=== PATIENT | female | born 1945 | race Caucasian/White ===

== ENCOUNTER 2018-01-25 23:26 | Inpatient (IN) ==
[2018-01-25] MEDS ORDERED: Aspirin 81 MG TAB.CHEW PO ONE (23:51)
[2018-01-25] MEDS ORDERED: Ondansetron 4 MG/2 ML VIAL IVP ONE (23:57)
[2018-01-25] MEDS ORDERED: Nitroglycerin 0.4 MG TAB.SUBL SL ONE (23:57)
--- NOTE | 2018-01-25 23:57 | Emergency Department Note ---
Disposition Clinical Impression: Diaphoresis, Acute electrocardiogram changes, Atelectasis of both lungs Nausea and vomiting Qualifiers: Vomiting type: unspecified Vomiting Intractability: non-intractable Qualified Code(s): R11.2 - Nausea with vomiting, unspecified Disposition: Admitted As Inpatient Condition: Undetermined Time of Disposition: 03:12 General Adult HPI - General Chief complaint: ED Nausea/Vomiting/Diarrhea Stated complaint: NV after Shoulder Surgery Time Seen by Provider: 01/25/18 23:30 Source: patient Mode of arrival: ambulatory Limitations: no limitations Nursing Notes Reviewed: Yes Vital Signs Reviewed: Yes - History of Present Illness HPI Narrative: 73-year-old female with history of CABG 3 vessels in 2010, with UT 3 stents placed in 2007, arrives to the emergency department status post right shoulder scoping. This was performed today by Dr. Hurt. The patient states that this pain started at roughly 945 this evening. The patient woke up her family member and they were brought into the emergency department. The patient is experiencing some nausea and vomiting as well. The patient states this feels identical to her previous UT back in 2007. The patient denies any shortness of breath. She denies any abdominal discomfort. She is very diaphoretic on examination. Pain Scale: 7 - Related Data Home Medications Medication Instructions Recorded Confirmed Aspirin 81 mg PO DAILY 07/31/16 01/26/18 Insulin NPH Hum/Reg Insulin Hm 12 unit SQ QPM 07/31/16 01/26/18 [Novolin 70-30 100 Unit/ml Vial] Insulin NPH Hum/Reg Insulin Hm 22 unit SQ QAM 07/31/16 01/26/18 [Novolin 70-30 100 Unit/ml Vial] Metoprolol [Lopressor] 12.5 mg PO BID 07/31/16 01/26/18 Ranitidine HCl [Heartburn Relief] 150 mg PO BID 07/31/16 01/26/18 Ergocalciferol (VITAMIN D2) 50,000 unit PO Q14D 08/01/16 01/26/18 [Vitamin D2 (50,000 UNIT)] Furosemide [Lasix] 20 mg PO DAILY 01/25/18 01/26/18 Nitroglycerin [Nitrostat] 0.4 mg SL Q5M PRN 01/25/18 01/26/18 Previous Rx's Medication Instructions Recorded Rosuvastatin [Crestor] 40 mg PO HS #30 tablet 08/02/16 Allergies Allergy/AdvReac Type Severity Reaction Status Date / Time codeine Allergy Rash Verified 06/27/15 13:40 losartan [From Cozaar] Allergy See Verified 08/01/16 11:26 Comments lisinopril AdvReac Cough Verified 08/01/16 11:26 All systems ED: reviewed and negative except as stated. Constitutional: Denies: fever, chills, weakness ENT ED: Denies: congestion Cardiovascular: Denies: chest pain, dyspnea on exertion, edema Respiratory: Denies: cough, dyspnea Gastrointestinal: Reports: nausea, vomiting. Denies: abdominal pain Genitourinary: Denies: urgency, dysuria Musculoskeletal: Reports: back pain, arthralgia. Denies: neck pain, myalgia Integumentary: Denies: rash Neurological: Denies: headache, weakness, numbness, paresthesias Past Medical History - Past Medical History Attestation: Yes The following information was validated with the patient. Source: patient, old records reviewed Medical history: Reports: coronary artery disease, diabetes, GERD, hyperlipidemia, hypertension, myocardial infarction, renal disease Surgical history: Reports: coronary bypass (CABG), orthopedic, other (Shoulder scope) Psychiatric history: Reports: no psych history - Social History Smoking Status: Unknown if ever smoked Smokeless Tobacco Status: No Alcohol use: Reports: none Drug use: Reports: none Physical Exam - General Limitations: no limitations General appearance: alert, other (Diaphoretic) - Head Head exam: atraumatic, normocephalic, normal inspection - Eye Eye exam: Present: normal appearance, PERRL, EOMI - ENT ENT exam: normal exam, normal oropharynx, mucous membranes moist - Neck Neck exam: Present: normal inspection, full ROM, trachea midline - Chest Chest inspection: Present: normal inspection, symmetric chest wall rise - Respiratory Respiratory exam: Present: normal lung sounds bilaterally - Cardiovascular Cardiovascular exam: Present: normal rhythm, tachycardia, normal heart sounds - Abdominal Exam Abdominal exam: Present: soft, Non-Tender. Absent: tenderness, distention, guarding, rebound, rigidity - Extremities Exam Extremities exam: Present: tenderness (Right shoulder due to recent shoulder surgery, right upper extremity is not sleeping with dressing in place.), normal capillary refill. Absent: pedal edema - Neurological Exam Neurological exam: Present: alert, oriented X3 - Skin Skin exam: Present: warm, dry, intact, normal color Course - Consultations Consultation #1: We spoke with Dr. Shen, who agreed with the plan of care for the patient that she will be admitted. No further recommendations at this time. Time: 01:25 Vital Signs Temperature 97.5 F L 01/25/18 23:31 Pulse Rate 101 01/25/18 23:31 Respiratory Rate 20 01/25/18 23:31 Blood Pressure 180/79 01/25/18 23:31 O2 Sat by Pulse Oximetry 98 01/25/18 23:31 Temperature 98.4 F 01/26/18 04:19 Pulse Rate 117 01/26/18 04:19 Respiratory Rate 18 01/26/18 04:19 Blood Pressure 146/74 01/26/18 04:19 O2 Sat by Pulse Oximetry 146 01/26/18 04:19 Oxygen Delivery Oxygen Delivery Nasal Cannula Medical Decision Making - MDM Narrative Medical decision making narrative: Workup in the emergency department demonstrates some flipped T waves and ST depression noted on EKG that are new. The patient appeared hypovolemic due to vomiting. In addition the patient had relief of her symptoms with nitroglycerin. The patient had anesthesia performed earlier today and this is possibly the etiology of her nausea and vomiting. There may be a component of heart strain associated with being hypovolemic as well. The patient was administered IV fluids and is resting comfortably in the room at this time. Given the patient's EKG changes as well as diaphoresis and nausea and vomiting, we will admit the patient to the hospital for further workup and care including trending of troponins. The patient was made aware and agrees to plan. No further questions or concerns noted at this time. Family member also agrees to plan of care. Chest x-ray also demonstrates bilateral haziness concern for possible pneumonia versus effusions. The patient was administered 1 g of Rocephin here in the emergency department. Accepted by Drr. Conde after repeat BMP and and repeat EKG. - Lab Data Lab results reviewed: Yes I reviewed the patient's lab results. Result diagrams: 01/26/18 00:13 01/26/18 02:05 Lab Results 01/26/18 01/26/18 01/26/18 Range/Units 00:13 00:13 00:13 WBC 9.0 (4.3-11.1) K/mcL RBC 2.94 L (3.82-4.97) M/mcL Hgb 8.7 L (11.5-15.4) g/dL Hct 28.9 L (35.3-44.9) % MCV 98.3 (83.0-100.0) fL MCH 29.6 (28.0-33.3) pg MCHC 30.1 L (31.6-35.5) g/dL RDW 13.8 (11.5-14.5) % Plt Count 171 (140-400) K/mcL MPV 11.8 (9.4-12.4) fL Immature Gran % 0.3 (0-4) % Seg Neutrophils % 94.8 % Lymphocytes % 3.4 % Monocytes % 1.3 % Eosinophils % 0.0 % Basophils % 0.2 % Neutrophils # 8.5 (1.6-8.9) K/mcL Lymphocytes # 0.3 L (0.6-4.6) K/mcL Monocytes # 0.1 (0.0-1.3) K/mcL Eosinophils # 0.0 (0.0-0.6) K/mcL Basophils # 0.0 (0.0-0.2) K/mcL PT 11.5 (9.4-12.1) Seconds INR 1.1 APTT 28.3 (26.0-36.0) Seconds Sodium 140 (136-145) mEq/L Potassium 5.4 H (3.5-5.1) mEq/L Chloride 113 H (98-107) mEq/L Carbon Dioxide 15 L (23-29) mEq/L BUN 32 H (8-23) mg/dL Creatinine 1.47 H (0.60-1.20) mg/dL Est GFR ( Amer) 42 L (> 60) Est GFR (Non-Af Amer) 35 L (> 60) BUN/Creatinine Ratio 22 (6-26) Glucose 398 H (70-105) mg/dL Calculated Osmolality 314 H (280-300) Calcium 8.6 (8.6-10.3) mg/dL Troponin I 0.03 (< 0.04) ng/mL 01/26/18 Range/Units 02:05 WBC (4.3-11.1) K/mcL RBC (3.82-4.97) M/mcL Hgb (11.5-15.4) g/dL Hct (35.3-44.9) % MCV (83.0-100.0) fL MCH (28.0-33.3) pg MCHC (31.6-35.5) g/dL RDW (11.5-14.5) % Plt Count (140-400) K/mcL MPV (9.4-12.4) fL Immature Gran % (0-4) % Seg Neutrophils % % Lymphocytes % % Monocytes % % Eosinophils % % Basophils % % Neutrophils # (1.6-8.9) K/mcL Lymphocytes # (0.6-4.6) K/mcL Monocytes # (0.0-1.3) K/mcL Eosinophils # (0.0-0.6) K/mcL Basophils # (0.0-0.2) K/mcL PT (9.4-12.1) Seconds INR APTT (26.0-36.0) Seconds Sodium 140 (136-145) mEq/L Potassium 4.9 (3.5-5.1) mEq/L Chloride 116 H (98-107) mEq/L Carbon Dioxide 14 L (23-29) mEq/L BUN 32 H (8-23) mg/dL Creatinine 1.32 H (0.60-1.20) mg/dL Est GFR ( Amer) 48 L (> 60) Est GFR (Non-Af Amer) 39 L (> 60) BUN/Creatinine Ratio 24 (6-26) Glucose 385 H (70-105) mg/dL Calculated Osmolality 313 H (280-300) Calcium 7.4 L (8.6-10.3) mg/dL Troponin I (< 0.04) ng/mL - Radiology Data Radiology results reviewed: Yes I reviewed the patient's radiology results. Chest X-Ray 01/25/18 23:51 IMPRESSION: 1. Hazy bilateral pulmonary opacities may reflect pneumonia or partial atelectasis in combination with right pleural effusion. 2. Subcutaneous emphysema of the right shoulder and right upper extremity. Etiology is uncertain. Finding could reflect dissection of occult pneumothorax or sequela of recent trauma. Infectious process may also be considered in the appropriate clinical scenario 3. No radiographic evidence of pneumothorax. D/ / Young Song, MD / Beka Gaffney MD Interpreting Provider: Beka Gaffney MD - EKG Data EKG #1 EKG attestation: Yes I reviewed and interpreted this EKG. EKG results narrative: Heart rate 10 8 bpm. Normal sinus rhythm with tachycardia. The patient has ST depression noted in leads 2 and V5. Flipped T waves noted in 1, aVL, V5 and V6. This all appears new from EKG performed on 01/16/2018. No ST elevation noted. Critical Care Time Critical Care Time: Yes Total Critical Care Time: 50 Attestation: Critical care performed: Time is exclusive of separately billable procedures. Time includes: direct patient care, patient reassessment, coordination of patient care, interpretation of data (laboratory data, radiology data, and respiratory data), review of patient's medical records, medical consultation and documentation of patient care. Procedures included in critical care time: Procedures excluded from critical care time:
[2018-01-25] MEDS ORDERED: 0.9 % Sodium Chloride 1,000 ML ONE (23:59)
[2018-01-26] MEDS: Nitroglycerin 0.4 MG TAB.SUBL SL PRN ×2 (00:05→00:43)
[2018-01-26 00:22] LABS: Basophils % 0.2 %; Hematocrit 28.9 % (35.3-44.9); Hemoglobin 8.7 g/dL (11.5-15.4); Immature Granulocytes % 0.3 % (0-4); Lymphocytes # 0.3 K/mcL (0.6-4.6); Lymphocytes % 3.4 %; Mean Corpuscular HGB Conc 30.1 g/dL (31.6-35.5); Mean Corpuscular Hemoglobin 29.6 pg (28.0-33.3); Mean Corpuscular Volume 98.3 fL (83.0-100.0); Mean Platelet Volume 11.8 fL (9.4-12.4); Monocytes # 0.1 K/mcL (0.0-1.3); Monocytes % 1.3 %; Neutrophils # 8.5 K/mcL (1.6-8.9); Platelet Count 171 K/mcL (140-400); Red Blood Count 2.94 M/mcL (3.82-4.97); Red Cell Distribution Width 13.8 % (11.5-14.5); Segmented Neutrophils % 94.8 %
[2018-01-26 00:28] LABS: INR 1.1; Prothrombin Time 11.5 Seconds (9.4-12.1)
[2018-01-26 00:31] LABS: Activated Partial Thrombo Time 28.3 Seconds (26.0-36.0)
[2018-01-26] MEDS ORDERED: cefTRIAXone 1,000 MG in Water for inj. (sterile) 20 ML 10 ML IVP ONE (00:39)
[2018-01-26 00:43] LABS: Calcium 8.6 mg/dL (8.6-10.3); Potassium 5.4 mEq/L (3.5-5.1); Troponin I 0.03 ng/mL (< 0.04)
[2018-01-26] MEDS ORDERED: Nitroglycerin 25 MG/250 ML INFUS..BTL IVC ONE (00:59)
[2018-01-26] MEDS ORDERED: Ondansetron 4 MG/2 ML VIAL IVP ONE (01:46)
[2018-01-26] MEDS ORDERED: Ondansetron 4 MG/2 ML VIAL ONE (01:47)
[2018-01-26] MEDS: Nitroglycerin 25 MG/250 ML INFUS..BTL IVC SCH ×2 (01:51→05:15)
[2018-01-26 02:34] LABS: Calcium 7.4 mg/dL (8.6-10.3); Potassium 4.9 mEq/L (3.5-5.1)
[2018-01-26] MEDS ORDERED: 0.9 % Sodium Chloride 1,000 ML IVC ONE (02:37)
--- NOTE | 2018-01-26 04:40 | Emergency Department Note ---
Disposition Clinical Impression: Diaphoresis, Acute electrocardiogram changes, Atelectasis of both lungs Nausea and vomiting Qualifiers: Vomiting type: unspecified Vomiting Intractability: non-intractable Qualified Code(s): R11.2 - Nausea with vomiting, unspecified Disposition: Admitted As Inpatient Condition: Undetermined General Adult HPI - General Chief complaint: ED Nausea/Vomiting/Diarrhea Stated complaint: NV after Shoulder Surgery Time Seen by Provider: 01/25/18 23:30 Source: patient Mode of arrival: ambulatory Limitations: no limitations - History of Present Illness Pain Scale: 7 - Related Data Home Medications Medication Instructions Recorded Confirmed Aspirin 81 mg PO DAILY 07/31/16 01/26/18 Insulin NPH Hum/Reg Insulin Hm 12 unit SQ QPM 07/31/16 01/26/18 [Novolin 70-30 100 Unit/ml Vial] Insulin NPH Hum/Reg Insulin Hm 22 unit SQ QAM 07/31/16 01/26/18 [Novolin 70-30 100 Unit/ml Vial] Metoprolol [Lopressor] 12.5 mg PO BID 07/31/16 01/26/18 Ranitidine HCl [Heartburn Relief] 150 mg PO BID 07/31/16 01/26/18 Ergocalciferol (VITAMIN D2) 50,000 unit PO Q14D 08/01/16 01/26/18 [Vitamin D2 (50,000 UNIT)] Furosemide [Lasix] 20 mg PO DAILY 01/25/18 01/26/18 Nitroglycerin [Nitrostat] 0.4 mg SL Q5M PRN 01/25/18 01/26/18 Previous Rx's Medication Instructions Recorded Rosuvastatin [Crestor] 40 mg PO HS #30 tablet 08/02/16 Allergies Allergy/AdvReac Type Severity Reaction Status Date / Time codeine Allergy Rash Verified 06/27/15 13:40 losartan [From Cozaar] Allergy See Verified 08/01/16 11:26 Comments lisinopril AdvReac Cough Verified 08/01/16 11:26 Constitutional: Denies: fever, chills, weakness ENT ED: Denies: congestion Cardiovascular: Denies: chest pain, dyspnea on exertion, edema Respiratory: Denies: cough, dyspnea Gastrointestinal: Reports: nausea, vomiting. Denies: abdominal pain Genitourinary: Denies: urgency, dysuria Musculoskeletal: Reports: back pain, arthralgia. Denies: neck pain, myalgia Integumentary: Denies: rash Neurological: Denies: headache, weakness, numbness, paresthesias Past Medical History - Past Medical History Medical history: Reports: coronary artery disease, diabetes, GERD, hyperlipidemia, hypertension, myocardial infarction, renal disease Surgical history: Reports: coronary bypass (CABG), orthopedic, other (Shoulder scope) Psychiatric history: Reports: no psych history - Social History Smoking Status: Unknown if ever smoked Smokeless Tobacco Status: No Alcohol use: Reports: none Drug use: Reports: none Physical Exam - General Limitations: no limitations General appearance: alert, other (Diaphoretic) Course Vital Signs Temperature 97.5 F L 01/25/18 23:31 Pulse Rate 101 01/25/18 23:31 Respiratory Rate 20 01/25/18 23:31 Blood Pressure 180/79 01/25/18 23:31 O2 Sat by Pulse Oximetry 98 01/25/18 23:31 Temperature 97.5 F L 01/25/18 23:31 Pulse Rate 100 01/26/18 03:15 Respiratory Rate 17 01/26/18 03:15 Blood Pressure 162/66 01/26/18 03:15 O2 Sat by Pulse Oximetry 99 01/26/18 03:15 Oxygen Delivery Oxygen Delivery Nasal Cannula Medical Decision Making - Lab Data Result diagrams: 01/26/18 00:13 01/26/18 02:05 Lab Results 01/26/18 01/26/18 01/26/18 Range/Units 00:13 00:13 00:13 WBC 9.0 (4.3-11.1) K/mcL RBC 2.94 L (3.82-4.97) M/mcL Hgb 8.7 L (11.5-15.4) g/dL Hct 28.9 L (35.3-44.9) % MCV 98.3 (83.0-100.0) fL MCH 29.6 (28.0-33.3) pg MCHC 30.1 L (31.6-35.5) g/dL RDW 13.8 (11.5-14.5) % Plt Count 171 (140-400) K/mcL MPV 11.8 (9.4-12.4) fL Immature Gran % 0.3 (0-4) % Seg Neutrophils % 94.8 % Lymphocytes % 3.4 % Monocytes % 1.3 % Eosinophils % 0.0 % Basophils % 0.2 % Neutrophils # 8.5 (1.6-8.9) K/mcL Lymphocytes # 0.3 L (0.6-4.6) K/mcL Monocytes # 0.1 (0.0-1.3) K/mcL Eosinophils # 0.0 (0.0-0.6) K/mcL Basophils # 0.0 (0.0-0.2) K/mcL PT 11.5 (9.4-12.1) Seconds INR 1.1 APTT 28.3 (26.0-36.0) Seconds Sodium 140 (136-145) mEq/L Potassium 5.4 H (3.5-5.1) mEq/L Chloride 113 H (98-107) mEq/L Carbon Dioxide 15 L (23-29) mEq/L BUN 32 H (8-23) mg/dL Creatinine 1.47 H (0.60-1.20) mg/dL Est GFR ( Amer) 42 L (> 60) Est GFR (Non-Af Amer) 35 L (> 60) BUN/Creatinine Ratio 22 (6-26) Glucose 398 H (70-105) mg/dL Calculated Osmolality 314 H (280-300) Calcium 8.6 (8.6-10.3) mg/dL Troponin I 0.03 (< 0.04) ng/mL 01/26/18 Range/Units 02:05 WBC (4.3-11.1) K/mcL RBC (3.82-4.97) M/mcL Hgb (11.5-15.4) g/dL Hct (35.3-44.9) % MCV (83.0-100.0) fL MCH (28.0-33.3) pg MCHC (31.6-35.5) g/dL RDW (11.5-14.5) % Plt Count (140-400) K/mcL MPV (9.4-12.4) fL Immature Gran % (0-4) % Seg Neutrophils % % Lymphocytes % % Monocytes % % Eosinophils % % Basophils % % Neutrophils # (1.6-8.9) K/mcL Lymphocytes # (0.6-4.6) K/mcL Monocytes # (0.0-1.3) K/mcL Eosinophils # (0.0-0.6) K/mcL Basophils # (0.0-0.2) K/mcL PT (9.4-12.1) Seconds INR APTT (26.0-36.0) Seconds Sodium 140 (136-145) mEq/L Potassium 4.9 (3.5-5.1) mEq/L Chloride 116 H (98-107) mEq/L Carbon Dioxide 14 L (23-29) mEq/L BUN 32 H (8-23) mg/dL Creatinine 1.32 H (0.60-1.20) mg/dL Est GFR ( Amer) 48 L (> 60) Est GFR (Non-Af Amer) 39 L (> 60) BUN/Creatinine Ratio 24 (6-26) Glucose 385 H (70-105) mg/dL Calculated Osmolality 313 H (280-300) Calcium 7.4 L (8.6-10.3) mg/dL Troponin I (< 0.04) ng/mL Attestation Statement - Attestation Attestation: I, Madi Paige MD, personally evaluated this patient and discussed their management with the resident physician. I reviewed the resident's note and agree with the documented findings, medical decision making, and plan of care. 73-year-old female who just had right shoulder surgery today and states that about the time she got home from her surgery this afternoon around 5 PM she started having pain in her left upper back around the left scapular region. Pain radiates to the left shoulder and left arm. No anterior chest pain. Patient states that she has a history of an MA in the past with similar symptoms. She has had 3 stents and three-vessel CABG. She did have some shortness of breath and diaphoresis with the back pain. She continues to have the back pain. She also developed nausea and vomiting about the time she arrived at the emergency department. On examination patient is a well-developed well-nourished elderly female in no acute distress. She is alert and oriented 3. There is no cyanosis or diaphoresis at time of my exam. Chest is nontender to palpation. Breath sounds are clear and equal bilaterally. Heart regular rate and rhythm. Abdomen soft and nontender with normal bowel sounds. Labs reviewed. Troponin normal. EKG does show some new anterior lateral T- wave inversions and ST segment depressions. Chest x-ray shows: Hazy bilateral pulmonary opacities may reflect pneumonia or partial atelectasis in combination with right pleural effusion. Patient's discomfort was significantly improved with 2 sublingual nitroglycerin short time later started returning. She was placed on a nitroglycerin infusion. She had taken aspirin at home prior to coming to the emergency department. Dr. Dent discussed the case with the copyholder carton filling machine operator, Dr. Shen. The hospitalist, Dr. Conde, was consulted and accepted admission of the patient.
[2018-01-26] MEDS ORDERED: Naloxone 0.4 MG/ML INJ IVP PRN (05:29)
[2018-01-26] MEDS ORDERED: Ondansetron 4 MG/2 ML VIAL IVP PRN (05:29)
[2018-01-26] MEDS ORDERED: *HR* Metoprolol 5 MG/5 ML VIAL IVP PRN (05:34)
[2018-01-26] MEDS ORDERED: D5% in Water 1,000 ML IVC PRN (05:36)
[2018-01-26] MEDS ORDERED: *HR* Dextrose 50 % in Water (Syg) 50 ML SYRINGE IVP PRN (05:36)
[2018-01-26] MEDS ORDERED: Dextrose Gel 15 GM/37.5 ML TUBE PO PRN ×2 (05:36)
--- NOTE | 2018-01-26 05:46 | Internal Med History&Physical ---
Date of Encounter: 01/26/18 Time of Encounter: 04:00 Assessment and Plan (1) Chest pain Current visit: Yes Status: Acute Patient complaining of chest pain or back pain, radiated to left arm. With shortness of breath, nausea, and diaphoresis. EKG shows lateral lead ischemia. The chest pain respond to NTG. Need to rule out ACS - Continuous cardiac monitoring - Track 3 sets of troponin - Continue aspirin, beta shannon, and statin, try to control tachycardia with intermittent metoprolol IV as needed. - Continue NTG drip - Pain medication if NTG drip cannot control the pain. - Cardiology consult informed by ER doctor Qualifiers: Chest pain type: precordial pain Qualified Code(s): R07.2 - Precordial pain (2) Coronary artery disease Current visit: No Status: Chronic Management as above Qualifiers: Coronary Disease-Associated Artery/Lesion type: bypass graft [place] vs. transplanted heart: [place] heart Associated angina: without angina Qualified Code(s): I25.810 - Atherosclerosis of coronary artery bypass graft(s) without angina pectoris (3) Essential hypertension Current visit: No Status: Chronic Continue home medications. Also patient is on NTG drip now, need closely monitor BP per protocol. (4) Type 2 diabetes mellitus with diabetic nephropathy, with long-term current use of insulin Current visit: No Status: Chronic Place patient on basal and sliding scale insulin (5) Ventilator associated pneumonia Current visit: Yes Status: Acute Chest x-ray shows pneumonia. Patient has rhonchorous bilaterally with shortness of breath. Patient has productive cough after general anesthesia surgery. We will treat patient as ventilator associated pneumonia with cefepime 2000 mg IV every 12 hours (renal dose). (6) DVT prophylaxis Current visit: Yes Status: Acute EPCD, hold anticoagulation in case patient needs catheterization by cardiology (7) Metabolic acidosis Current visit: Yes Status: Acute Hyperchloride metabolic acidosis with bicarbonate at 14. Probably due to recent surgery/PONV - We will give patient lactated Ringer solution IV - Follow up BMP Internal Medicine - H&P: HPI Chief complaint: Chest pain Admitted From: Home Plans for Post Hospital Care: Home History of present illness: Ms. Andres is a 73 year old female with history of CAD S/P stent and CABG, diabetes, hypertension, CKD, freezing shoulder S/P arthroscope today, presented to ER for chest/back pain. Patient had shoulder surgery this morning. This afternoon, patient started to have chest pain and back pain during sleep, which wake her up. The pain is mainly located on the left sided back, radiated to left arm, as per patient, pain is quite similar with the pain she had previously when she has [place]. Pain is constant, dull, respond to nitroglycerin sublingual. Patient has shortness of breath, nausea and vomited once, diaphoresis. Patient has productive cough, which started after surgery. Patient denies fever. In emergency room, EKG shows new T-wave inversion on lead 1 aVL and V5/V6. Patient was started NTD drip, her pain get down to around 4-5/10. Patient was admitted for further management. Past Med Surg Social Fam HX - Past Medical History Medical history: coronary artery disease, diabetes, GERD, hyperlipidemia, hypertension, myocardial infarction, renal disease Psychiatric history: no psych history - Past Surgical History Surgical History: coronary bypass (CABG), orthopedic, other (Shoulder scope) - Social History Smoking Status: Unknown if ever smoked Smokeless Tobacco Status: No Alcohol use: none Drug use: none - Family History Father Living Status: Age at : 89 Cause of : [place] Hx Family Cardiac Disorders: Yes (CAD, [place]) Mother Living Status: Age at : 67 Cause of : DM, [place] Hx Family Cardiac Disorders: Yes (CAD) Hx Family Endocrine Disorder: Yes (DMII, kidney problems) Internal Medicine - H&P: Meds Aspirin 81 mg PO DAILY 07/31/16 [History] Insulin NPH Hum/Reg Insulin Hm [Novolin 70-30 100 Unit/ml Vial] 12 unit SQ QPM 07/31/16 [History] Insulin NPH Hum/Reg Insulin Hm [Novolin 70-30 100 Unit/ml Vial] 22 unit SQ QAM 07/31/16 [History] Metoprolol [Lopressor] 12.5 mg PO BID 07/31/16 [History] Ranitidine HCl [Heartburn Relief] 150 mg PO BID 07/31/16 [History] Ergocalciferol (VITAMIN D2) [Vitamin D2 (50,000 UNIT)] 50,000 unit PO Q14D 08/01 [History] Rosuvastatin [Crestor] 40 mg PO HS #30 tablet 08/02/16 [Rx] Furosemide [Lasix] 20 mg PO DAILY 01/25/18 [History] Nitroglycerin [Nitrostat] 0.4 mg SL Q5M PRN 01/25/18 [History] 3 Allergy/AdvReac Type Severity Reaction Status Date / Time codeine Allergy Rash Verified 06/27/15 13:40 losartan [From Cozaar] Allergy See Verified 08/01/16 11:26 Comments lisinopril AdvReac Cough Verified 08/01/16 11:26 All Systems PM: A 10-system review of systems was performed and is negative for pertinent findings except as documented above in the HPI. - Constitutional Vitals: Temp Pulse Resp BP Pulse Ox 98.4 F 117 18 146/74 146 01/26/18 04:19 01/26/18 04:19 01/26/18 04:19 01/26/18 04:19 01/26/18 04:19 General appearance: Present: mild distress, A&O X 3, answers questions appropriately - Head Head exam: Present: atraumatic, normocephalic - Eye Eye exam: Present: PERRL, conjuntiva pink, sclera anicteric Pupils: Present: PERRL - Neck Neck exam general surgery: Present: supple, trachea midline. Absent: lymphadenopathy - Respiratory Respiratory exam: Present: CTAB, rhonchi (Defused rhonchi bilaterally). Absent : accessory muscle use, rales, wheezes - Cardiovascular Cardiovascular exam: Present: RRR, +S1, +S2, tachycardia. Absent: diastolic murmur, gallop, rubs, systolic murmur - GI/Abdominal GI/Abdominal exam: Present: normal bowel sounds, soft, no peritoneal signs. Absent: distended, tenderness - Extremities Exam Extremities exam: Present: warm, radial pulses palpable and symmetrical. Absent : calf tenderness, cyanotic, pedal edema Additional comments: Right shoulder S/P surgery, in sling fixation. - Neurological Exam Neurological exam: Present: CN II-XII intact, oriented X3, no focal deficits. Absent: pronater drift, facial droop, speech deficit - Skin Skin exam: Present: dry, intact Internal Med - H&P Results - Labs CBC & Chem 7: 01/26/18 00:13 01/26/18 02:05 - EKG Data -: EKG Interpreted by Myself EKG shows normal: sinus rhythm Rate: tachycardia
[2018-01-26] MEDS: Ringers Solution, Lactated 1,000 ML IVC SCH ×2 (05:51→18:42)
[2018-01-26] MEDS: Cefepime HCl 2,000 MG in Water for inj. (sterile) 20 ML 20 ML IVP SCH ×2 (05:52→18:33)
[2018-01-26] MEDS ORDERED: Insulin LISPRO 300 UNITS/3 ML VIAL SQ SCH (06:00)
[2018-01-26] MEDS: Ondansetron 4 MG/2 ML VIAL IVP PRN (06:09)
--- NOTE | 2018-01-26 06:48 | Event Note ---
Date of Encounter: 01/26/18 Time of Encounter: 06:35 Pt's second troponin 0.71. Together with her typical EKG and chest pain, consider NSTEMI. Hesitate to start heparin drip because pt just had right shoulder surgery yesterday and concern for surgical bleeding. Tried to inform cardio but not get responds yet. Signed to dayshift hospitalist to cont follow/ monitor.
[2018-01-26] MEDS: Furosemide 20 MG TABLET PO SCH (08:13)
[2018-01-26] MEDS: Famotidine 20 MG TABLET PO SCH ×2 (08:13→22:08)
[2018-01-26] MEDS: Aspirin 81 MG TAB.CHEW PO SCH (08:13)
[2018-01-26] MEDS ORDERED: Insulin DETEMIR 100 UNIT/ML X5UNITS SQ SCH (09:00)
--- NOTE | 2018-01-26 10:47 | Event Note ---
Date of Encounter: 01/26/18 Time of Encounter: 10:37 S: Patient doing better since admission. She states that chest pain is greatly improved on nitro. She denies SOB, fever, or chills. Troponin trended up to 0.71 this AM. I spoke with broom maker today, who is going to see patient. She has no new complaints. O: Vitals - Temp 97.4 degrees F., HR 97, RR 18, BP 132/60, O2 sat 97% on 3L NC Gen - Awake, alert, well-nourished, no acute distress HEENT - NCAT, PERRLA, EOMI, hearing grossly intact, oropharynx benign Resp - Mildly labored WOB, CTAB, no W/R/R CV - RRR, normal S1 and S2, no M/R/G, no BLE edema GI - Soft, NT/ND, no masses, normal BS, no HSP Skin - Warm, dry, no rashes/lesions/ulcers Psych - Normal mood and affect, no depression or anxiety A/P: 1) Chest Pain - Cardiology consulted; appreciate input. Will follow their recommendations. Holding heparin due to recent surgery. Continue trending cardiac enzymes. Continue telemetry. Continue aspirin, beta shannon, and statin. Continue nitro drip. 2) Ventilator Associated Pneumonia - Continue cefepime. 3) Type II DM - Start Q6H accuchecks and SSI moderate dose while NPO. Will resume home levemir once taking diet.
[2018-01-26] MEDS: Insulin LISPRO 300 UNITS/3 ML VIAL SQ SCH ×2 (12:17→17:14)
[2018-01-26] MEDS ORDERED: *HR* Heparin 5,000 UNIT/ML VIAL IVP ONE (13:19)
[2018-01-26] MEDS ORDERED: *HR* Heparin 5,000 UNIT/ML VIAL IVP PRN ×2 (13:19)
[2018-01-26] MEDS ORDERED: Heparin 25,000 UNIT/500 ML D5W 25,000 UNIT/500 ML BAG IVC SCH (13:30)
--- NOTE | 2018-01-26 13:49 | Cardiology Consult Note ---
<Yamileth Acosta - Last Filed: 01/26/18 15:54> Date of Encounter: 01/26/18 Time of Encounter: 13:47 Assessment and Plan (1) NSTEMI (non-ST elevated myocardial infarction) Current Visit: Yes Status: Acute Concern for NSTEMI. 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 Reported nausea, diaphoresis, SOB. Troponin, 0.03, 0.71, 5.22 01/25/2018 EKG: HR 108 ST depression in lateral leads with T wave inversion 01/26/2018 EKG: HR 99 ST depression in lateral leads 01/26/2018 EKG: HR 84, NSR non specific ST ,T changes PMH: CABG 2010, LHC 2007, DM, CKD Patient is chest pain free. No arrhythmias or murmur on exam. -start low dose heparin -continue NTG drip -order ECHO -possible cath tomorrow but in light of anemia with drop in Hgb will consult GI for evaluation. -NPO midnight (2) Ventilator associated pneumonia Current Visit: Yes Status: Acute B/L pneumonia demonstrated by CXR that is concerning for ventilator associated pneumonia due to recent (3) Anemia Current Visit: Yes Status: Acute Anemia in setting of NSTEMI Hgb 7.9 (8.7) Anemia that may be secondary to CKD, also concern for GI source since she last colonoscopy was 35yr ago. She is a patient of Dr. Sharp and is to get an iron transfusion 01/28/2018 and 02/04/2018. Patient is s/p right shoulder arthroscope . -consulted GI for evaluation prior to patient undergoing C -stool occult test ordered Qualifiers: Qualified Code(s): D64.9 - Anemia, unspecified (4) Chest pain Current Visit: Yes Status: Acute Currently patient is chest pain free. Last night in bed she had pressure like back pain that radiated down left arm, similar to when she had a CABG. Reported nausea, diaphoresis, SOB. -see plan above Qualifiers: Chest pain type: precordial pain Qualified Code(s): R07.2 - Precordial pain (5) Coronary artery disease Current Visit: No Status: Chronic PMH: CABG x3 stent 2010, LHC 2007. Is a patient of Yuan Tiffanie of cardiology. 12/2016 TTE: EF 60%. Mild- moderate AR, mild MR, moderate-severe pulmonary hypertension. -continue asa, crestor, BB, lasix Qualifiers: Coronary Disease-Associated Artery/Lesion type: bypass graft [place] vs. transplanted heart: [place] heart Associated angina: without angina Qualified Code(s): I25.810 - Atherosclerosis of coronary artery bypass graft(s) without angina pectoris (6) CKD (chronic kidney disease) Current Visit: Yes Status: Acute History of CKD, patient of Dr. Sharp. Creatinine 1.32 (at baseline) -management per primary team. Avoid nephrotoxic agents. Qualifiers: Qualified Code(s): N18.9 - Chronic kidney disease, unspecified (7) Type 2 diabetes mellitus with diabetic nephropathy, with long-term current use of insulin Current Visit: No Status: Chronic history of diabetes. -management per primary team Discussion w patient/family: The assessment and plan as outlined above was discussed with the patient and/or family members who expressed understanding and agreement. All questions were answered. Thank you for involving us in the care of your patient. Please call with any questions. History of Present Illness Consult date: 01/26/18 Requesting physician: Meliton Dent Consult reason: EKG changes, LUE pain Chief complaint: chest pain History of present illness: Ms. Andres is a 73 year old female with PMH CABG 2010, LHC 2007, DM, CKD who presented to [facility] complaining of back pain. She is s/p right shoulder arthroscope 1 day ago. She stated she was in bed when she had dull back pain that radiated down her left arm. She also experienced nausea, SOB, diaphoresis. Since this pain was similar to when she had her CABG she came to ED. Troponin 0.03, 0.71. EKG demonstrated HR 108 ST depression in lateral leads with wave inversion. Heparin was not started since she had right shoulder arthroscope earlier that day. She is a non smoker. She stated that she has had anemia and is to get iron infusion 01/28/2018 and 02/04/2018 ordered by her integrity engineer Dr. Sharp. She sees Yuan Moreno in the cardiology office. 12/2016 TTE: EF 60%. Mild- moderate AR, mild MR, moderate-severe pulmonary hypertension. Past Med Surg Social Fam HX - Past Medical History Medical history: coronary artery disease, diabetes, GERD, hyperlipidemia, hypertension, myocardial infarction, renal disease Psychiatric history: no psych history - Past Surgical History Surgical History: coronary bypass (CABG), orthopedic, other (Shoulder scope) - Social History Smoking Status: Unknown if ever smoked Smokeless Tobacco Status: No Alcohol use: none Drug use: none - Family History Father Living Status: Age at : 89 Cause of : MS Hx Family Cardiac Disorders: Yes (CAD, MS) Mother Living Status: Age at : 67 Cause of : DM, [place] Hx Family Cardiac Disorders: Yes (CAD) Hx Family Endocrine Disorder: Yes (DMII, kidney problems) Medications and Allergies Insulin NPH Hum/Reg Insulin Hm [Novolin 70-30 100 Unit/ml Vial] 12 unit SQ QPM 07/31/16 [History] Insulin NPH Hum/Reg Insulin Hm [Novolin 70-30 100 Unit/ml Vial] 22 unit SQ QAM 07/31/16 [History] Metoprolol [Lopressor] 12.5 mg PO BID 07/31/16 [History] Ranitidine HCl [Heartburn Relief] 150 mg PO BID 07/31/16 [History] Ergocalciferol (VITAMIN D2) [Vitamin D2 (50,000 UNIT)] 50,000 unit PO Q14D 08/01 [History] Rosuvastatin [Crestor] 40 mg PO HS #30 tablet 08/02/16 [Rx] Furosemide [Lasix] 20 mg PO DAILY 01/25/18 [History] Nitroglycerin [Nitrostat] 0.4 mg SL Q5M PRN 01/25/18 [History] 3 Allergy/AdvReac Type Severity Reaction Status Date / Time codeine Allergy Rash Verified 06/27/15 13:40 losartan [From Cozaar] Allergy See Verified 08/01/16 11:26 Comments lisinopril AdvReac Cough Verified 08/01/16 11:26 All Systems Review: The remainder of the systems were reviewed and are negative - Constitutional Constitutional: no chills, no fever(s), no headache(s) - EENT Eyes: no blurred vision - Cardiovascular Cardiovascular: chest pain at rest, diaphoresis, radiating jaw, neck or arm pain , no leg edema, no palpitations, no syncope - Respiratory Respiratory: no cough, no dyspnea - Gastrointestinal Gastrointestinal: nausea, no abdominal pain - Musculoskeletal Musculoskeletal: no abnormal gait - Integumentary Integumentary: no erythema - Neurological Neurological: no abnormal speech, no loss of vision Physical Examination Vital Signs, Last 4 Hours Temp Pulse Resp BP Pulse Ox 01/26/18 10:48 97.6 F 83 16 102/58 96 General: Conversant, No Apparent Distress HEENT: Atraumatic, Mucus Membranes Moist Neck: No JVD Cardiac: Reg Rate and Rhythm, Normal S1 and S2 Lungs: Normal Breath Sounds Neuro: Alert and responsive Abdomen: Soft, Non-Tender Skin: No rashes noted on visualized skin Musculoskeletal: No Chest Wall Tenderness Extremities: No Edema Results 01/26/18 13:44 01/26/18 02:05 Lab Results 01/26/18 01/26/18 05:49 11:16 Troponin I 0.71 H* 5.22 H* Consult Discharge Plan - Plan Instructions: Heart Failure (DC), Chest Pain (DC), Diabetes Mellitus Type 2 in Adults (DC), Chronic Hypertension (DC), Pneumonia (DC), Joint Replacement Surgery, Retail Performance Specialist (GEN) Referrals: Tawana Quintero, MARGA [Primary Care Provider] - <Ree Shen - Last Filed: 01/26/18 17:03> Date of Encounter: 01/26/18 - Attending Attestation I examined this patient and my medical decision-making was reviewed with the BARBER SHOP OPERATOR. I agree with the documented findings, disposition and treatment plan as described. Ms. Andres presents with chest pain after undergoing right shoulder surgery 2017 concerning for NSTEMI. Workup so far includes elevated troponin and notable ECG changes. Patient is presently chest pain-free. Has known CAD s/p CABG 2010. I discussed the findings with the patient and medical POA at the bedside. We would like to proceed with C. However, Hgb noted to be low at 7.9 today - previously chronic anemia in the 9-10 range. Recommend GI workup prior to heart catheterization. Patient denies bleeding events. Recommend continuing heparin gtt for now with watch on H&H. Continue asa, statin, BB. Check echo. Assessment and Plan Discussion w patient/family: The assessment and plan as outlined above was discussed with the patient and/or family members who expressed understanding and agreement. All questions were answered. Thank you for involving us in the care of your patient. Please call with any questions. History of Present Illness History of present illness: Ms. Andres is a 73 year old female All Systems Review: The remainder of the systems were reviewed and are negative Physical Examination Vital Signs, Last 4 Hours Temp Pulse Resp BP Pulse Ox 01/26/18 16:15 97.7 F 83 17 117/53 98 Results 01/26/18 13:44 01/26/18 02:05 Lab Results 01/26/18 01/26/18 01/26/18 05:49 11:16 13:44 WBC 11.9 H Hgb 7.9 L Hct 26.7 L Plt Count 177 INR APTT Troponin I 0.71 H* 5.22 H* 01/26/18 13:44 WBC Hgb Hct Plt Count INR 1.1 APTT 27.0 Troponin I
[2018-01-26 14:09] LABS: Hematocrit 26.7 % (35.3-44.9); Hemoglobin 7.9 g/dL (11.5-15.4); Mean Corpuscular HGB Conc 29.6 g/dL (31.6-35.5); Mean Corpuscular Hemoglobin 29.6 pg (28.0-33.3); Mean Platelet Volume 11.5 fL (9.4-12.4); Platelet Count 177 K/mcL (140-400); Red Blood Count 2.67 M/mcL (3.82-4.97); Red Cell Distribution Width 14.2 % (11.5-14.5)
[2018-01-26 14:13] LABS: INR 1.1; Prothrombin Time 11.9 Seconds (9.4-12.1)
--- NOTE | 2018-01-26 16:44 | Gastroenterology Consult Note ---
<Christian Merritt - Last Filed: 01/26/18 19:18> Date of Encounter: 01/26/18 Time of Encounter: 16:42 - Assessment and plan (1) Anemia Current Visit: Yes Status: Acute Assessment and plan: Start clear liquid diet now then NPO after midnight. Give Miralax if patient is unable to tolerate Nulytely. Anticipate EGD & colonoscopy tomorrow. Will confirm with cardiology before holding Heparin gtt in the setting of NSTEMI. Qualifiers: Anemia type: due to chronic kidney disease Chronic kidney disease stage: stage 4 (severe) Qualified Code(s): N18.4 - Chronic kidney disease, stage 4 ( severe); D63.1 - Anemia in chronic kidney disease; D63.1 - Anemia in chronic kidney disease (2) NSTEMI (non-ST elevated myocardial infarction) Current Visit: Yes Status: Acute Assessment and plan: Currently on Heparin ggt Cardiology following (3) CKD (chronic kidney disease) stage 4, GFR 15-29 ml/min Current Visit: Yes Status: Acute - Time Spent With Patient Total time spent is greater than 50% in coordination of care (as documented) at patient's floor/unit and/or counseling patient: GI History of Present Illness - Data of Consult Patient: new to practice Consult date: 01/26/18 Requesting Physician: Joanne Sutton MD - Consult Narrative Reason for consult: Anemia, GI clearance before [facility] History of present illness: Ms. Andres is a 73 year old female with a PMH of esophageal ulcer, GERD, CAD, DM , PVD, and anemia in the setting of CKD stage IV who presented to [facility] complaining of CP radiating to back and left arm s/p right shoulder arthroscope yesterday. She reports associated nausea, SOB, and diaphoresis. She admits recent history of taking Diclofenac/NSAIDs for about a month due to chronic right shoulder pain. Of note, patient's manager economic Dr. Sharp has scheduled her for iron infusions on 01/28/2018 and 02/04/2018. GI was consulted by cardiology for GI clearance prior to [facility]. Heparin was started due to NSTEMI. Colonoscopy: 35yrs ago Past Med Surg Social Fam HX - Past Medical History Medical history: coronary artery disease, diabetes, GERD, hyperlipidemia, hypertension, myocardial infarction, renal disease Psychiatric history: no psych history - Past Surgical History Surgical History: coronary bypass (CABG), orthopedic, other (Shoulder scope) - Social History Smoking Status: Unknown if ever smoked Smokeless Tobacco Status: No Alcohol use: none Drug use: none - Family History Father Living Status: Age at : 89 Cause of : [place] Hx Family Cardiac Disorders: Yes (CAD, SC) Mother Living Status: Age at : 67 Cause of : DM, [place] Hx Family Cardiac Disorders: Yes (CAD) Hx Family Endocrine Disorder: Yes (DMII, kidney problems) - Gastrointestinal Gastrointestinal: Present: heartburn. Absent: abdominal pain, coffee ground emesis, constipation, diarrhea, dyspepsia, hematemesis, hematochezia, melena, nausea, vomiting - Constitutional Constitutional: fatigue, no anorexia, no fever(s), no weight gain, no weight loss - EENT Nose, mouth and throat: Absent: dysphagia, sore throat - Cardiovascular Cardiovascular ROS: Present: chest pain. Absent: irregular heart rhythm, palpitations - Respiratory Respiratory IM: Absent: cough, dyspnea - Genitourinary Genitourinary: Absent: change in color, Urinary frequency - Neurological ROS Neurological GI: Absent: confusion, dizziness, headache(s) - Hematologic/Lymphatic Hematologic/Lymphatic pediatric: Present: as per HPI. Absent: easy bleeding - Musculoskeletal Musculoskeletal ROS GI: Present: back pain. Absent: joint swelling - Integumentary Integumentary GI: Absent: jaundice, pruritis, rash - Psychiatric ROS Psychiatric GI: Absent: anxiety, depression - Endocrine Endocrine IM: Present: fatigue. Absent: cold intolerance, heat intolerance - Constitutional Vitals: Temp Pulse Resp BP Pulse Ox 97.7 F 83 17 117/53 98 01/26/18 16:15 01/26/18 16:15 01/26/18 16:15 01/26/18 16:15 01/26/18 16:15 General appearance: Present: cooperative, A&O X 3, no acute distress, answers questions appropriately - Head Head exam: Present: atraumatic, normocephalic - Eye Eye exam: Present: normal appearance, sclera anicteric - Neck Neck exam general surgery: Present: normal inspection, trachea midline - Respiratory Respiratory exam: Present: CTAB - Cardiovascular Cardiovascular exam: Present: RRR, +S1, +S2 - GI/Abdominal GI/Abdominal exam: Present: normal bowel sounds, soft, no peritoneal signs. Absent: tenderness - Rectal Rectal exam: Present: deferred - Extremities Exam Extremities exam: Present: warm. Absent: pedal edema, tenderness - Neurological Exam Neurological exam: Present: no focal deficits - Psychiatric Psychiatric exam: Present: normal affect, normal mood - Skin Skin exam: Present: dry, intact, normal color, warm Results - Labs CBC & Chem 7: 01/26/18 13:44 01/26/18 02:05 Labs: Last Result Calcium 7.4 mg/dL (8.6-10.3) L 01/26/18 02:05 Troponin I 5.22 ng/mL (< 0.04) H* 01/26/18 11:16 Entire Visit Hgb 7.9 g/dL (11.5-15.4) L 01/26/18 13:44 Hct 26.7 % (35.3-44.9) L 01/26/18 13:44 PT 11.9 Seconds (9.4-12.1) 01/26/18 13:44 - ABG ABG results: PT/INR, D-dimer PT 11.9 Seconds (9.4-12.1) 01/26/18 13:44 Consult Discharge Plan - Plan Instructions: Heart Failure (DC), Chest Pain (DC), Diabetes Mellitus Type 2 in Adults (DC), Chronic Hypertension (DC), Pneumonia (DC), Joint Replacement Surgery, Telegraph Office Route Aide (GEN) Referrals: Tawana Quintero, DEHAIRING MACHINE TENDER [Primary Care Provider] - <Iron Soria - Last Filed: 01/26/18 19:37> Date of Encounter: 01/26/18 Time of Encounter: 17:50 - Time Spent With Patient Total time spent is greater than 50% in coordination of care (as documented) at patient's floor/unit and/or counseling patient: GI History of Present Illness - Data of Consult Requesting Physician: Joanne Sutton MD - Consult Narrative History of present illness: Ms. Andres is a 73 year old female - Constitutional Vitals: Temp Pulse Resp BP Pulse Ox 97.7 F 83 17 117/53 98 01/26/18 16:15 01/26/18 16:15 01/26/18 16:15 01/26/18 16:15 01/26/18 16:15 Results - Labs CBC & Chem 7: 01/26/18 13:44 01/26/18 02:05 Labs: Last Result Calcium 7.4 mg/dL (8.6-10.3) L 01/26/18 02:05 Troponin I 5.22 ng/mL (< 0.04) H* 01/26/18 11:16 Entire Visit Hgb 7.9 g/dL (11.5-15.4) L 01/26/18 13:44 Hct 26.7 % (35.3-44.9) L 01/26/18 13:44 PT 11.9 Seconds (9.4-12.1) 01/26/18 13:44 - ABG ABG results: PT/INR, D-dimer PT 11.9 Seconds (9.4-12.1) 01/26/18 13:44 - Attending Attestation I examined this patient and my medical decision-making was reviewed with the Resident Physician. I agree with the documented findings, disposition and treatment plan as described except to the extent set forth below. In 73-year-old female seen at the bedside. Denies any active abdominal symptom status post right shoulder surgery now with non-ST SC. Does has anemia and cardiology would like us to do workup before she has cardiac catheter Done. Discussed with Dr. Damon sutherland to hold her heparin before the scopes. Recommendation: EGD colonoscopy tomorrow after holding heparin for 4-6 hour in the morning
--- NOTE | 2018-01-26 16:51 | Electrocardiograph Report ---
[address] [place], [place] [address] Test Date: 2018-01-25 Pat Name: Elo Andres Department: 103 Room: 2NE35 Gender: F Prototype Engineer Manager: DOYLE : 1945 Requested By: Meliton Dent Order Number: [id number] Reading MD: Gigi Jose Measurements Intervals [place] Rate: 108 P: SD: 0 QRS: -36 QRSD: 111 T: 115 QT: 338 QTc: 401 Interpretive Statements ATRIAL FIBRILLATION WITH RAPID VENTRICULAR RESPONSE MARKED LEFT AXIS DEVIATION MINIMAL VOLTAGE CRITERIA FOR LVH, CONSIDER NORMAL VARIANT SEPTAL MYOCARDIAL INFARCTION, OF INDETERMINATE AGE MODERATE T-WAVE ABNORMALITY, CONSIDER LATERAL ISCHEMIA Electronically Signed On 01-26-2018 16:50:14 EDT by Gigi Jose
--- NOTE | 2018-01-26 16:52 | Electrocardiograph Report ---
[address] [place] [address] Test Date: 2018-01-26 Pat Name: Elo Andres Department: 103 Room: 2NE35 Gender: F Keyliner: DOYLE : 1945 Requested By: Meliton Dent Order Number: [id number] Reading MD: Gigi Jose Measurements Intervals [place] Rate: 99 P: 103 [place]: 169 QRS: -38 QRSD: 112 T: 116 QT: 351 QTc: 407 Interpretive Statements SINUS RHYTHM MARKED LEFT AXIS DEVIATION LEFT VENTRICULAR HYPERTROPHY AND ST-T CHANGE POSSIBLE SEPTAL MYOCARDIAL INFARCTION, OF INDETERMINATE AGE Electronically Signed On 01-26-2018 16:51:01 EDT by Gigi Jose
[2018-01-26] MEDS ORDERED: SODIUM CHLORIDE/NAHCO3/KCL/PEG 4,000 ML SOLN.RECON PO ONE (17:51)
[2018-01-27] MEDS: OXYCODONE Oral CONC 10 MG/0.5 ML ORAL.SYG SL PRN ×2 (00:42→23:29)
[2018-01-27] MEDS: Insulin LISPRO 300 UNITS/3 ML VIAL SQ SCH ×5 (00:48→23:30)
[2018-01-27] MEDS: Cefepime HCl 2,000 MG in Water for inj. (sterile) 20 ML 20 ML IVP SCH (06:42)
[2018-01-27 07:04] LABS: Calcium 8.1 mg/dL (8.6-10.3)
[2018-01-27 07:05] LABS: Basophils % 0.1 %; Eosinophils % 0.2 %; Hematocrit 24.3 % (35.3-44.9); Hemoglobin 7.5 g/dL (11.5-15.4); Immature Granulocytes % 0.4 % (0-4); Lymphocytes # 0.6 K/mcL (0.6-4.6); Mean Corpuscular HGB Conc 30.9 g/dL (31.6-35.5); Mean Corpuscular Hemoglobin 30.6 pg (28.0-33.3); Mean Corpuscular Volume 99.2 fL (83.0-100.0); Mean Platelet Volume 12.2 fL (9.4-12.4); Monocytes # 0.7 K/mcL (0.0-1.3); Monocytes % 5.8 %; Neutrophils # 10.8 K/mcL (1.6-8.9); Platelet Count 153 K/mcL (140-400); Red Blood Count 2.45 M/mcL (3.82-4.97); Red Cell Distribution Width 14.4 % (11.5-14.5); Segmented Neutrophils % 88.5 %
[2018-01-27] MEDS: Famotidine 20 MG TABLET PO SCH ×2 (08:45→21:15)
[2018-01-27] MEDS: Furosemide 20 MG TABLET PO SCH (08:45)
[2018-01-27] MEDS: Aspirin 81 MG TAB.CHEW PO SCH (08:45)
[2018-01-27] MEDS: Acetaminophen 325 MG TABLET PO PRN (08:55)
--- NOTE | 2018-01-27 09:33 | Gastroenterology Progress Note ---
<Christian Merritt - Last Filed: 01/27/18 09:29> Date of Encounter: 01/27/18 Time of Encounter: 09:29 - Assessment and plan (1) Anemia Current Visit: Yes Status: Acute Assessment and plan: She denies hematemesis or blood in stool during bowel prep last PM. Her HGB is 7.5 this AM and she remains hemodynamically stable. Recommend shoulder ultrasound to r/o hematoma Given recent shoulder procedure and Heparin administration for NSTEMI, will hold off on endoscopies today per Dr. Macias. Patient may start clear liquid diet if she is not going to have LHC, defer to cardiology Qualifiers: Anemia type: due to chronic kidney disease Chronic kidney disease stage: stage 4 (severe) Qualified Code(s): N18.4 - Chronic kidney disease, stage 4 ( severe); D63.1 - Anemia in chronic kidney disease; D63.1 - Anemia in chronic kidney disease (2) NSTEMI (non-ST elevated myocardial infarction) Current Visit: Yes Status: Acute Assessment and plan: Currently on Heparin ggt Cardiology following (3) CKD (chronic kidney disease) stage 4, GFR 15-29 ml/min Current Visit: Yes Status: Acute - Time Spent With Patient Total time spent is greater than 50% in coordination of care (as documented) at patient's floor/unit and/or counseling patient: - Subjective Interval history: Patient seen and examined. She denies hematemesis or blood in stool during bowel prep last PM. Her HGB is 7.5 this AM and she remains hemodynamically stable. Given recent shoulder procedure and Heparin administration for NSTEMI, will hold off on endoscopies today per Dr. Macias. - Constitutional Vitals: Temp Pulse Resp BP Pulse Ox 98.7 F 91 18 133/55 95 01/27/18 05:46 01/27/18 05:46 01/27/18 05:46 01/27/18 05:46 01/27/18 08:59 General appearance: Present: cooperative, A&O X 3, no acute distress, answers questions appropriately - Head Head exam: Present: atraumatic, normocephalic - Eye Eye exam: Present: normal appearance, sclera anicteric - Neck Neck exam general surgery: Present: normal inspection, trachea midline - Respiratory Respiratory exam: Present: CTAB - Cardiovascular Cardiovascular exam: Present: RRR, +S1, +S2 - GI/Abdominal GI/Abdominal exam: Present: normal bowel sounds, soft, no peritoneal signs - Rectal Rectal exam: Present: deferred - Extremities Exam Extremities exam: Present: tenderness (dressing in place right shoulder), warm - Neurological Exam Neurological exam: Present: no focal deficits - Psychiatric Psychiatric exam: Present: normal affect, normal mood - Skin Skin exam: Present: dry, intact (ecchymosis right shoulder), warm Results - Labs CBC & Chem 7: 01/27/18 05:46 01/27/18 05:46 Labs: Last Result Calcium 8.1 mg/dL (8.6-10.3) L 01/27/18 05:46 Troponin I 5.22 ng/mL (< 0.04) H* 01/26/18 11:16 Stool Occult Blood Positive (Negative) A 01/26/18 19:48 Entire Visit Hgb 7.5 g/dL (11.5-15.4) L 01/27/18 05:46 Hct 24.3 % (35.3-44.9) L 01/27/18 05:46 PT 11.9 Seconds (9.4-12.1) 01/26/18 13:44 - ABG ABG results: PT/INR, D-dimer PT 11.9 Seconds (9.4-12.1) 01/26/18 13:44 - VTE Documentation of Mechanical Device: Intermittent pneumatic compression device Consult Discharge Plan - Plan Instructions: Heart Failure (DC), Chest Pain (DC), Diabetes Mellitus Type 2 in Adults (DC), Chronic Hypertension (DC), Pneumonia (DC), Joint Replacement Surgery, Workcell Operator (GEN) Referrals: Tawana Quintero, INVISIBLE BRACES ORTHODONTIST [Primary Care Provider] - <Matt Macias - Last Filed: 01/30/18 13:01> Date of Encounter: 01/27/18 - Time Spent With Patient Total time spent is greater than 50% in coordination of care (as documented) at patient's floor/unit and/or counseling patient: - Constitutional Vitals: Temp Pulse Resp BP Pulse Ox 98.7 F 82 16 120/53 100 01/30/18 11:53 01/30/18 11:53 01/30/18 11:53 01/30/18 11:53 01/30/18 11:53 Results - Labs CBC & Chem 7: 01/30/18 12:05 01/30/18 04:52 Labs: Last Result Calcium 8.3 mg/dL (8.6-10.3) L 01/30/18 04:52 Troponin I 8.03 ng/mL (< 0.04) H* 01/27/18 16:25 Stool Occult Blood Positive (Negative) A 01/26/18 19:48 Entire Visit Hgb 9.5 g/dL (11.5-15.4) L 01/30/18 12:05 Hct 30.3 % (35.3-44.9) L 01/30/18 12:05 PT 14.1 Seconds (9.4-12.1) H 01/30/18 12:05 - ABG ABG results: PT/INR, D-dimer PT 14.1 Seconds (9.4-12.1) H 01/30/18 12:05 - Attending Attestation wILL NEED EGD AND COLONOSCOPY. I examined this patient and my medical decision-making was reviewed with the Resident Physician. I agree with the documented findings, disposition and treatment plan as described except to the extent set forth below.
[2018-01-27] MEDS ORDERED: Pantoprazole 40 MG VIAL IVP STA (09:45)
[2018-01-27] MEDS ORDERED: 0.9 % Sodium Chloride 250 ML ONE (11:10)
--- NOTE | 2018-01-27 11:14 | Cardiology Progress Note ---
<Yamileth Acosta - Last Filed: 01/27/18 11:41> Date of Encounter: 01/27/18 Time of Encounter: 11:11 Assessment and Plan (1) NSTEMI (non-ST elevated myocardial infarction) Current Visit: Yes Status: Acute Concern for NSTEMI. 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 Reported nausea, diaphoresis, SOB. Troponin, 0.03, 0.71, 5.22, 8.76 01/25/2018 EKG: HR 108 ST depression in lateral leads with T wave inversion 01/26/2018 EKG: HR 99 ST depression in lateral leads 01/26/2018 EKG: HR 84, NSR non specific ST ,T changes PMH: CABG 2010, LHC 2007, DM, CKD Patient denies chest pain, palpitations. No arrhythmias or murmur on exam. -awaiting echo results -heparin stopped in light of possible GI bleed, Hgb 7.5 decreased. The risk of continuing anticoagulation in setting of possuble GI bleed out weighs benefits. -NTG drip stopped since patient is chest pain free -LHC after patient has been evaluated by GI for anemia with continued drop in Hgb (2) Ventilator associated pneumonia Current Visit: Yes Status: Acute B/L pneumonia demonstrated by CXR that is concerning for ventilator associated pneumonia due to recent arthroscope. -currently on cefepime (3) Anemia Current Visit: Yes Status: Acute Anemia concerning for GI bleed in setting of NSTEMI. Hgb 7.5 (8.7, 7.9) baseline is 9-10 stool occult positive Last colonoscopy was 35yr ago. She is a patient of Dr. Sharp and is to get an iron transfusion 01/28/2018 and 02/04/2018. Patient is s/p right shoulder arthroscope 01/25/2018. shoulder u/s negative for hematoma -consulted GI for evaluation prior to patient undergoing LHC -1 PRBC given Qualifiers: Anemia type: due to chronic kidney disease Chronic kidney disease stage: stage 4 (severe) Qualified Code(s): N18.4 - Chronic kidney disease, stage 4 ( severe); D63.1 - Anemia in chronic kidney disease; D63.1 - Anemia in chronic kidney disease (4) Chest pain Current Visit: Yes Status: Acute Currently patient is chest pain free. Last night in bed she had pressure like back pain that radiated down left arm, similar to when she had a CABG. Reported nausea, diaphoresis, SOB. -see plan above Qualifiers: Chest pain type: precordial pain Qualified Code(s): R07.2 - Precordial pain (5) Coronary artery disease Current Visit: No Status: Chronic PMH: CABG x3 stent 2010, LHC 2007. Is a patient of Yuan Moerno of cardiology. 12/2016 TTE: EF 60%. Mild- moderate AR, mild MR, moderate-severe pulmonary hypertension. -continue asa, crestor, BB, lasix Qualifiers: Coronary Disease-Associated Artery/Lesion type: bypass graft [place] vs. transplanted heart: [place] heart Associated angina: without angina Qualified Code(s): I25.810 - Atherosclerosis of coronary artery bypass graft(s) without angina pectoris (6) CKD (chronic kidney disease) Current Visit: Yes Status: Acute History of CKD, patient of Dr. Sharp. Creatinine 1.89 (1.32) -management per primary team. Avoid nephrotoxic agents. Qualifiers: Chronic kidney disease stage: unspecified stage Qualified Code(s): N18.9 - Chronic kidney disease, unspecified (7) Type 2 diabetes mellitus with diabetic nephropathy, with long-term current use of insulin Current Visit: No Status: Chronic history of diabetes. -management per primary team Discussion w patient/family: The assessment and plan as outlined above was discussed with the patient and/or family members who expressed understanding and agreement. All questions were answered. Thank you for involving us in the care of your patient. Please call with any questions. Subjective Principal diagnosis: chest pain Interval history: Patient denies chest pain, palpitations, bleeding, shortness of breath. Troponin increased and was started on heparin however due to anemia and continued drop in Hgb concerning for GI bleed, heparin was stopped. GI consulted. Patient given 1 PRBC. Will plan for cath once patient evaluated with EGD for GI bleed. Objective Vital Signs, Last 4 Hours Pulse Ox 01/27/18 08:59 95 General: Conversant, No Apparent Distress HEENT: Atraumatic, Mucus Membranes Moist Neck: No JVD Cardiac: Reg Rate and Rhythm, Normal S1 and S2 Lungs: Normal Breath Sounds Neuro: Alert and responsive Abdomen: Soft, Non-Tender Skin: No rashes noted on visualized skin Musculoskeletal: No Chest Wall Tenderness Extremities: No Edema Results 01/27/18 05:46 01/27/18 05:46 Lab Results 01/26/18 01/26/18 01/26/18 11:16 13:44 13:44 WBC 11.9 H Hgb 7.9 L Hct 26.7 L Plt Count 177 INR 1.1 APTT 27.0 Sodium Potassium Chloride Carbon Dioxide BUN Creatinine Glucose Calcium Magnesium Troponin I 5.22 H* 01/26/18 01/27/18 01/27/18 23:03 05:46 05:46 WBC 12.2 H Hgb 7.5 L Hct 24.3 L Plt Count 153 INR APTT 108.7 H D Sodium 140 Potassium 5.0 Chloride 115 H Carbon Dioxide 16 L BUN 43 H Creatinine 1.89 H Glucose 236 H Calcium 8.1 L Magnesium 2.0 Troponin I 01/27/18 01/27/18 05:46 08:35 WBC Hgb Hct Plt Count INR APTT 51.1 H D Sodium Potassium Chloride Carbon Dioxide BUN Creatinine Glucose Calcium Magnesium Troponin I 8.67 H* - VTE Documentation of Mechanical Device: Intermittent pneumatic compression device Consult Discharge Plan - Plan Instructions: Heart Failure (DC), Chest Pain (DC), Diabetes Mellitus Type 2 in Adults (DC), Chronic Hypertension (DC), Pneumonia (DC), Joint Replacement Surgery, Cloth Finishing Range Back Tender (GEN) Referrals: Tawana Quintero, TABLET MAKING MACHINE OPERATOR [Primary Care Provider] - <Ree Shen - Last Filed: 01/27/18 13:53> Date of Encounter: 01/27/18 Assessment and Plan Discussion w patient/family: I examined this patient and my medical decision-making was reviewed with the Resident Physician. I agree with the documented findings, disposition and treatment plan as described. Ms. Andres's Hgb continues to decline and stool occult blood is positive. Waiting on GI workup to decide plan of care. Trend troponin for peak. Echo reviewed - normal LV systolic function. There is TR with pulmonary hypertension - seen on prior echo's. Patient remains chest pain free. Will continue to follow. Further recommendations pending GI evaluation. Objective Vital Signs, Last 4 Hours Temp Pulse Resp BP Pulse Ox 01/27/18 11:55 98.0 F 80 14 113/47 98 01/27/18 11:32 97.6 F 82 15 113/47 98 Results 01/27/18 05:46 01/27/18 05:46 Lab Results 01/26/18 01/26/18 01/26/18 13:44 13:44 23:03 WBC 11.9 H Hgb 7.9 L Hct 26.7 L Plt Count 177 INR 1.1 APTT 27.0 108.7 H D Sodium Potassium Chloride Carbon Dioxide BUN Creatinine Glucose Calcium Magnesium Troponin I 01/27/18 01/27/18 01/27/18 05:46 05:46 05:46 WBC 12.2 H Hgb 7.5 L Hct 24.3 L Plt Count 153 INR APTT 51.1 H D Sodium 140 Potassium 5.0 Chloride 115 H Carbon Dioxide 16 L BUN 43 H Creatinine 1.89 H Glucose 236 H Calcium 8.1 L Magnesium 2.0 Troponin I 01/27/18 08:35 WBC Hgb Hct Plt Count INR APTT Sodium Potassium Chloride Carbon Dioxide BUN Creatinine Glucose Calcium Magnesium Troponin I 8.67 H*
[2018-01-27 16:56] LABS: Hematocrit 30.6 % (35.3-44.9)
[2018-01-27 16:57] LABS: Hemoglobin 9.7 g/dL (11.5-15.4)
--- NOTE | 2018-01-27 17:21 | Internal Med Progress Note ---
Date of Encounter: 01/27/18 Time of Encounter: 17:19 - Assessment and plan (1) Chest pain Current Visit: Yes Status: Acute Assessment and plan: Resolved. Troponin trended higher this AM. Cardiology consulted; appreciate input. Deferring cath for now while anemia. GI can hopefully scope tomorrow if Hgb holds steady. Then likely plan for cath. Continue aspirin, beta shannon , statin, and PRN metoprolol IV. Nitro drip weaned. Continue pain control. Qualifiers: Chest pain type: precordial pain Qualified Code(s): R07.2 - Precordial pain (2) Anemia Current Visit: Yes Status: Chronic Assessment and plan: Acute on chronic. Hgb down to 7.5 this AM. Given 1 unit PRBC due to symptoms. Hgb up to 9.7 post-transfusion. Continue IV protonix. GI consulted; appreciate input. Deferring scope for now. U/S right shoulder with no bleeding or hematoma. Check CBC in AM. Qualifiers: Anemia type: due to chronic kidney disease Chronic kidney disease stage: stage 4 (severe) Qualified Code(s): N18.4 - Chronic kidney disease, stage 4 ( severe); D63.1 - Anemia in chronic kidney disease; D63.1 - Anemia in chronic kidney disease (3) Ventilator associated pneumonia Current Visit: Yes Status: Acute Assessment and plan: Respiratory status stable. Continue IV cefepime. (4) CKD (chronic kidney disease) stage 4, GFR 15-29 ml/min Current Visit: Yes Status: Chronic Assessment and plan: Cr bumped up to 1.89. CLD started today; NPO after midnight. Start LR at 75 ml /hr due to improving metabolic acidosis. Recheck BMP in AM. (5) Coronary artery disease Current Visit: Yes Status: Chronic Assessment and plan: Cardiology consulted. Plan as per above. Qualifiers: Coronary Disease-Associated Artery/Lesion type: bypass graft [place] vs. transplanted heart: [place] heart Associated angina: without angina Qualified Code(s): I25.810 - Atherosclerosis of coronary artery bypass graft(s) without angina pectoris (6) Essential hypertension Current Visit: Yes Status: Chronic Assessment and plan: BP improved. Continue home medications. (7) Type 2 diabetes mellitus with diabetic nephropathy, with long-term current use of insulin Current Visit: Yes Status: Chronic Assessment and plan: Continue accuchecks and SSI QID AC/HS. Continue home basal insulin. (8) DVT prophylaxis Current Visit: Yes Status: Acute - Time Spent With Patient less than 15 minutes - Subjective Interval history: Patient had no acute events overnight. She had some anemia this AM with Hgb = 7.6. She received 1 unit PRBC. Hgb improved to 9.7. She feels much better this afternoon. She states that chest pain is resolved at this time. She denies SOB, fever, or chills. She has no new complaints. - Constitutional Vitals: Temp Pulse Resp BP Pulse Ox 98.5 F 82 16 141/67 99 01/27/18 14:48 01/27/18 15:00 01/27/18 15:00 01/27/18 15:00 01/27/18 15:00 General appearance: Present: cooperative, A&O X 3, pleasant, no acute distress, answers questions appropriately - Respiratory Respiratory exam: Present: CTAB. Absent: accessory muscle use, rales, rhonchi, wheezes Additional comments: Normal WOB - Cardiovascular Cardiovascular exam: Present: RRR, +S1, +S2. Absent: diastolic murmur, gallop, rubs, systolic murmur - GI/Abdominal GI/Abdominal exam: Present: normal bowel sounds, soft. Absent: distended, hepatomegaly, mass, splenomegaly, tenderness - Psychiatric Psychiatric exam: Present: normal affect, normal mood. Absent: anxious, depressed - Skin Skin exam: Present: dry, intact, warm. Absent: cyanosis, rash Internal Medicine: Result - Labs CBC & Chem 7: 01/27/18 16:25 01/27/18 05:46 Labs: Short CBC 01/27/18 01/27/18 Range/Units 05:46 16:25 WBC 12.2 H (4.3-11.1) K/mcL Hgb 7.5 L 9.7 L D (11.5-15.4) g/dL Hct 24.3 L 30.6 L (35.3-44.9) % Plt Count 153 (140-400) K/mcL Neutrophils # 10.8 H (1.6-8.9) K/mcL BMP 01/27/18 05:46 Sodium 140 Potassium 5.0 Chloride 115 H Carbon Dioxide 16 L BUN 43 H Creatinine 1.89 H Glucose 236 H Calcium 8.1 L Cardiac Enzymes 01/27/18 01/27/18 Range/Units 08:35 16:25 Troponin I 8.67 H* 8.03 H* (< 0.04) ng/mL - ABG Interpretation ABG results: PT/INR, D-dimer PT 11.9 Seconds (9.4-12.1) 01/26/18 13:44 - Impressions Impressions Echocardiogram 01/26/18 15:13 Impressions: LVEF 55%. Normal LV chamber size, wall thickness and function. Indeterminate diastolic function. Mildly dilated and hypokinetic right ventricle. Mild-moderate mitral regurgitation. Moderate to severe tricuspid regurgitation. Severe pulmonary hypertension. Estimated RVSP is 70-75 mmHg. Left Ventricular Wall Motion: Rest Echo Findings All wall segments showed normal motion. Findings: Study Quality * Technically adequate exam. ECG Findings * Normal sinus rhythm. Left Ventricle * LVEF 55%. * Normal LV chamber size, wall thickness and function. * Indeterminate diastolic function. Right Ventricle * Mildly dilated right ventricle. * Mild right ventricular hypokinesis. Left Atrium * Mildly dilated left atrium. Right Atrium * Mildly dilated right atrium. Interatrial Septum * Interatrial septum not well evaluated. Aortic Valve * Trileaflet aortic valve. * Mildly sclerotic aortic valve leaflets. * Trace aortic regurgitation. * No aortic stenosis. Mitral Valve * Mild mitral annular calcification. * Mildly thickened mitral valve leaflets. * Mild-moderate mitral regurgitation. * No mitral stenosis. Tricuspid Valve * Normal tricuspid valve structure. * Moderate to severe tricuspid regurgitation. * Severe pulmonary hypertension. * Estimated RVSP is 70-75 mmHg. * Estimated RA pressure is 5-10 mmHg. Pulmonic Valve * Pulmonic valve not well visualized. * Trace pulmonic regurgitation. Aorta * Normally sized aortic root. Pericardium * The pericardium appears normal. IVC * The IVC is not dilated. * < 50% respiratory change. Pulmonary Artery * Pulmonary artery not well visualized. Extremity Ultrasound 01/27/18 08:13 IMPRESSION: No hematoma or other focal abnormality identified. D/ / 01/27/2018 09:50:56 Ronnie Mathis MD / Libby Melvin Interpreting Provider: Ronnie Mathis MD - VTE Reasons for not Prescribing Prophylaxis: Medical contraindication (Anemia, Suspected GI Bleed) Documentation of Mechanical Device: Intermittent pneumatic compression device Consult Discharge Plan - Plan Instructions: Heart Failure (DC), Chest Pain (DC), Diabetes Mellitus Type 2 in Adults (DC), Chronic Hypertension (DC), Pneumonia (DC), Joint Replacement Surgery, Key Cutter (GEN) Referrals: Tawana Quintero CNP [Primary Care Provider] -
[2018-01-27] MEDS: Pantoprazole 40 MG VIAL IVP SCH (17:44)
[2018-01-27] MEDS: Ringers Solution, Lactated 1,000 ML IVC SCH (17:45)
[2018-01-28 06:26] LABS: Basophils % 0.5 %; Eosinophils # 0.2 K/mcL (0.0-0.6); Eosinophils % 2.4 %; Hematocrit 28.4 % (35.3-44.9); Hemoglobin 8.9 g/dL (11.5-15.4); Immature Granulocytes % 0.4 % (0-4); Lymphocytes # 0.8 K/mcL (0.6-4.6); Lymphocytes % 9.9 %; Mean Corpuscular HGB Conc 31.3 g/dL (31.6-35.5); Mean Corpuscular Hemoglobin 29.8 pg (28.0-33.3); Mean Platelet Volume 11.5 fL (9.4-12.4); Monocytes # 0.8 K/mcL (0.0-1.3); Monocytes % 9.7 %; Neutrophils # 6.3 K/mcL (1.6-8.9); Platelet Count 138 K/mcL (140-400); Red Blood Count 2.99 M/mcL (3.82-4.97); Red Cell Distribution Width 15.4 % (11.5-14.5); Segmented Neutrophils % 77.1 %
[2018-01-28] MEDS: Cefepime HCl 2,000 MG in Water for inj. (sterile) 20 ML 20 ML IVP SCH (06:32)
[2018-01-28] MEDS: Pantoprazole 40 MG VIAL IVP SCH ×2 (06:33→18:10)
[2018-01-28] MEDS: Insulin LISPRO 300 UNITS/3 ML VIAL SQ SCH ×3 (06:33→18:10)
[2018-01-28 06:42] LABS: Calcium 8.2 mg/dL (8.6-10.3); Potassium 4.6 mEq/L (3.5-5.1)
[2018-01-28] MEDS: Aspirin 81 MG TAB.CHEW PO SCH (08:59)
[2018-01-28] MEDS: Furosemide 20 MG TABLET PO SCH (08:59)
[2018-01-28] MEDS: Famotidine 20 MG TABLET PO SCH ×2 (08:59→22:01)
--- NOTE | 2018-01-28 10:11 | Internal Med Progress Note ---
Date of Encounter: 01/28/18 Time of Encounter: 10:08 - Assessment and plan (1) Chest pain Current Visit: Yes Status: Acute Assessment and plan: Pain resolved. Last troponin 8.03 yesterday. Cardiology consulted; appreciate input. Deferring cath for now while anemic. GI can hopefully scope today since Hgb seems to be stabilizing. Then likely plan for cath. Continue aspirin , beta shannon, statin, and PRN metoprolol IV. Nitro drip weaned. Continue pain control. Qualifiers: Chest pain type: precordial pain Qualified Code(s): R07.2 - Precordial pain (2) Anemia Current Visit: Yes Status: Chronic Assessment and plan: Acute on chronic. Hgb up to 8.7 yesterday s/p 1 unit PRBC; Hgb 8.9 this AM. Continue IV protonix. GI consulted; appreciate input. Deferring scope for now. U/S right shoulder with no bleeding or hematoma. Check CBC in AM. Qualifiers: Anemia type: due to chronic kidney disease Chronic kidney disease stage: stage 4 (severe) Qualified Code(s): N18.4 - Chronic kidney disease, stage 4 ( severe); D63.1 - Anemia in chronic kidney disease; D63.1 - Anemia in chronic kidney disease (3) Ventilator associated pneumonia Current Visit: Yes Status: Acute Assessment and plan: Respiratory status stable. Continue IV cefepime. (4) CKD (chronic kidney disease) stage 4, GFR 15-29 ml/min Current Visit: Yes Status: Chronic Assessment and plan: Cr came down to 1.77 this AM. Metabolic acidosis improved. Continue LR at 75 ml/hr. Will start diet after consultation with GI. Recheck BMP in AM. (5) Coronary artery disease Current Visit: Yes Status: Chronic Assessment and plan: Cardiology consulted. Plan as per above. Qualifiers: Coronary Disease-Associated Artery/Lesion type: bypass graft [place] vs. transplanted heart: [place] heart Associated angina: without angina Qualified Code(s): I25.810 - Atherosclerosis of coronary artery bypass graft(s) without angina pectoris (6) Essential hypertension Current Visit: Yes Status: Chronic Assessment and plan: BP improved. Continue home medications. (7) Type 2 diabetes mellitus with diabetic nephropathy, with long-term current use of insulin Current Visit: Yes Status: Chronic Assessment and plan: Blood glucose improved. Continue accuchecks and SSI QID AC/HS. Continue home basal insulin. (8) DVT prophylaxis Current Visit: Yes Status: Acute Assessment and plan: SCDs. Defer anticoagulation due to anemia/suspected GI bleed. - Subjective Interval history: Patient had no acute events overnight. She feels "good" today. No further episodes of chest pain. She wants to eat. She denies SOB, fever, or chills. She has no new complaints. - Constitutional Vitals: Temp Pulse Resp BP Pulse Ox 98.2 F 83 16 137/57 95 01/28/18 07:38 01/28/18 07:38 01/28/18 07:38 01/28/18 07:38 01/28/18 07:38 General appearance: Present: cooperative, A&O X 3, pleasant, no acute distress, answers questions appropriately - Respiratory Respiratory exam: Present: CTAB. Absent: accessory muscle use, rales, rhonchi, wheezes Additional comments: Normal WOB - Cardiovascular Cardiovascular exam: Present: RRR, +S1, +S2. Absent: diastolic murmur, gallop, rubs, systolic murmur Additional comments: No BLE edema - GI/Abdominal GI/Abdominal exam: Present: normal bowel sounds, soft. Absent: distended, hepatomegaly, mass, splenomegaly, tenderness - Psychiatric Psychiatric exam: Present: normal affect, normal mood. Absent: anxious, depressed - Skin Skin exam: Present: dry, intact, warm. Absent: cyanosis, rash Internal Medicine: Result - Labs CBC & Chem 7: 01/28/18 06:04 01/28/18 06:04 Labs: Short CBC 01/27/18 01/28/18 Range/Units 16:25 06:04 WBC 8.2 (4.3-11.1) K/mcL Hgb 9.7 L D 8.9 L (11.5-15.4) g/dL Hct 30.6 L 28.4 L (35.3-44.9) % Plt Count 138 L (140-400) K/mcL Neutrophils # 6.3 (1.6-8.9) K/mcL BMP 01/28/18 06:04 Sodium 139 Potassium 4.6 Chloride 116 H Carbon Dioxide 18 L BUN 38 H Creatinine 1.77 H Glucose 148 H Calcium 8.2 L Cardiac Enzymes 01/27/18 Range/Units 16:25 Troponin I 8.03 H* (< 0.04) ng/mL - ABG Interpretation ABG results: PT/INR, D-dimer PT 11.9 Seconds (9.4-12.1) 01/26/18 13:44 - Impressions Impressions Echocardiogram 01/26/18 15:13 Impressions: LVEF 55%. Normal LV chamber size, wall thickness and function. Indeterminate diastolic function. Mildly dilated and hypokinetic right ventricle. Mild-moderate mitral regurgitation. Moderate to severe tricuspid regurgitation. Severe pulmonary hypertension. Estimated RVSP is 70-75 mmHg. Left Ventricular Wall Motion: Rest Echo Findings All wall segments showed normal motion. Findings: Study Quality * Technically adequate exam. ECG Findings * Normal sinus rhythm. Left Ventricle * LVEF 55%. * Normal LV chamber size, wall thickness and function. * Indeterminate diastolic function. Right Ventricle * Mildly dilated right ventricle. * Mild right ventricular hypokinesis. Left Atrium * Mildly dilated left atrium. Right Atrium * Mildly dilated right atrium. Interatrial Septum * Interatrial septum not well evaluated. Aortic Valve * Trileaflet aortic valve. * Mildly sclerotic aortic valve leaflets. * Trace aortic regurgitation. * No aortic stenosis. Mitral Valve * Mild mitral annular calcification. * Mildly thickened mitral valve leaflets. * Mild-moderate mitral regurgitation. * No mitral stenosis. Tricuspid Valve * Normal tricuspid valve structure. * Moderate to severe tricuspid regurgitation. * Severe pulmonary hypertension. * Estimated RVSP is 70-75 mmHg. * Estimated RA pressure is 5-10 mmHg. Pulmonic Valve * Pulmonic valve not well visualized. * Trace pulmonic regurgitation. Aorta * Normally sized aortic root. Pericardium * The pericardium appears normal. IVC * The IVC is not dilated. * < 50% respiratory change. Pulmonary Artery * Pulmonary artery not well visualized. Extremity Ultrasound 01/27/18 08:13 IMPRESSION: No hematoma or other focal abnormality identified. D/ / 01/27/2018 09:50:56 Ronnie Mathis MD / Libby Melvin Interpreting Provider: Ronnie Mathis MD - VTE Reasons for not Prescribing Prophylaxis: Medical contraindication (Anemia, Suspected GI Bleed) Documentation of Mechanical Device: Intermittent pneumatic compression device Consult Discharge Plan - Plan Instructions: Heart Failure (DC), Chest Pain (DC), Diabetes Mellitus Type 2 in Adults (DC), Chronic Hypertension (DC), Pneumonia (DC), Joint Replacement Surgery, Rn Hemodialysis Charge (GEN) Referrals: Tawana Quintero CNP [Primary Care Provider] -
[2018-01-28] MEDS: Nitroglycerin 25 MG/250 ML INFUS..BTL IVC SCH (12:30)
--- NOTE | 2018-01-28 13:45 | Event Note ---
Date of Encounter: 01/28/18 Time of Encounter: 13:44 Awaiting GI workup prior to proceeding with [facility]. Spoke with Dr. Pickett on- call.
[2018-01-28 14:57] LABS: Basophils % 0.5 %; Eosinophils # 0.2 K/mcL (0.0-0.6); Hematocrit 29.6 % (35.3-44.9); Hemoglobin 9.4 g/dL (11.5-15.4); Immature Granulocytes % 0.3 % (0-4); Lymphocytes # 0.6 K/mcL (0.6-4.6); Lymphocytes % 7.6 %; Mean Corpuscular HGB Conc 31.8 g/dL (31.6-35.5); Mean Corpuscular Hemoglobin 30.4 pg (28.0-33.3); Mean Corpuscular Volume 95.8 fL (83.0-100.0); Mean Platelet Volume 11.7 fL (9.4-12.4); Monocytes # 0.7 K/mcL (0.0-1.3); Monocytes % 8.6 %; Neutrophils # 6.4 K/mcL (1.6-8.9); Platelet Count 150 K/mcL (140-400); Red Blood Count 3.09 M/mcL (3.82-4.97); Red Cell Distribution Width 15.3 % (11.5-14.5)
--- NOTE | 2018-01-28 16:34 | Electrocardiograph Report ---
[place] [id number] Test Date: 2018-01-26 Pat Name: Elo Andres Department: 111 Room: [facility] [place] Gender: F Windlasser: : 1945 Requested By: Yamileth Acosta Order Number: [id number] Reading MD: Ree Shen Measurements Intervals [place] Rate: 84 P: 84 FL: 172 QRS: -23 QRSD: 92 T: 20 QT: 364 QTc: 405 Interpretive Statements SINUS RHYTHM BORDERLINE LEFT AXIS DEVIATION NONSPECIFIC ST & T-WAVE ABNORMALITY Electronically Signed On 01-28-2018 16:32:48 EDT by Ree Shne
--- NOTE | 2018-01-28 17:06 | General Surgery Consult Note ---
Date of Encounter: 01/28/18 Time of Encounter: 16:43 Assessment and Plan (1) Heme positive stool Current Visit: Yes Status: Acute Discussed wiht the patient and family, that given the above history and the possible need for a LHC and anti-platelet therapy, that an EGD and colonoscopy would be appropriate to ensure that there is not GI source behind the patient's anemia (and to fully evaluate the heme + stool). Given her cardiac history and elevated troponins, this procedure will need to be completed using MAC anesthesia. Patient and family agree with the above plan. (2) Anemia Current Visit: Yes Status: Chronic Likely multifactorial. Will plan for EGD and colonoscopy to rule out GI component. See above. Qualifiers: Anemia type: due to chronic kidney disease Chronic kidney disease stage: stage 4 (severe) Qualified Code(s): N18.4 - Chronic kidney disease, stage 4 ( severe); D63.1 - Anemia in chronic kidney disease; D63.1 - Anemia in chronic kidney disease History of Present Illness Consult date: 01/28/18 Reason for consult: other (anemia, heme positive stool, NSTEMI) Requesting physician: Ree Shen History of present illness: 73 year old non-smoker female with a PMH of DM type 2, GERD, CAD, PVD, ID, anemia of chronic disease, CKD stage 4, and other orthopedic complaints. She presented to the ED on 01/25/18 late in the evening for nausea, vomiting, chest pain, and diaphoresis. She stated that her current symptomaology feels similar to her previous ID. Additionally, she was POD #0 for right shoulder arthroscopy for adhesive capsulitis eariler on 01/25/18. EKG showed ST changes suspicious for an NSTEMI. CXR showed pneumonia versus effusions with bilateral opacities and she was treated with 1 dose of Rocephin. She was admitted with cardiology consult to rule out ID. On 01/26/18, she was noted to still be experiencing chest pain, nausea, vomiting , and diaphoresis. Cefipime was initiated for continued treatment of pneumonia with suspected ventilator-associated etiology related to her most recent orthopedic surgery. Additionally, her Hgb decreased from 8.7 to 7.9 and a stool heme occult tested positive; thus, Gastroenterology was consulted to evaluate for possible GI bleed - planned for EGD and colonoscopy on 01/27/18 and initiated bowel prep. Of note, the patient admitted to NSAID use for 1 month due to shoulder pain. On 01/27/18, the patient's Hgb further decreased to 7.5 from 7.9; therefore blood transfusion was initiated, giving 1 unit of PRBCs. Gastroenterology saw the patient again and decided to hold off on the EGD and colonoscopy due to hemodynamic stability but suggested the right shoulder be evaluated for hematoma via U/S. Subsequent right shoulder U/S was negative for hematoma. Today, when I saw she was feeling better and denies experiencing any chest pain , dyspnea, nausea, vomiting, diarrhea, or abdominal pain. She normally has 1 BM every day to every other day denying any constipation. She denies any further complaints other than wanting to eat and drink. Of note, her Hgb increased from 7.5 to 9.7 then decreased to 8.9 and increased again to 9.4. Elida Canseco OMS III Review the above assessment and evaluation and agree with the overall history of present illness. Patient denies any abdominal pain symptoms and nausea or vomiting. Denies any history of diarrhea or constipation. She has not had any visualized rectal bleeding on further review. Noted chronic anemia with no noted history of previous gastric intestinal workup for her chronic anemia. Severino Pickett MD Past Med Surg Social Fam HX - Past Medical History Medical history: coronary artery disease, diabetes, GERD, hyperlipidemia, hypertension, myocardial infarction, renal disease Psychiatric history: no psych history - Past Surgical History Surgical History: coronary bypass (CABG), orthopedic, other (Shoulder scope), other (EGD 2010, colonoscopy greater than 10 year ago) - Social History Smoking Status: Unknown if ever smoked Smokeless Tobacco Status: No Alcohol use: none Drug use: none - Family History Father Living Status: Age at : 89 Cause of : ID Hx Family Cardiac Disorders: Yes (CAD, ID) Mother Living Status: Age at : 67 Cause of : DM, ID Hx Family Cardiac Disorders: Yes (CAD) Hx Family Endocrine Disorder: Yes (DMII, kidney problems) Medications and Allergies Insulin NPH Hum/Reg Insulin Hm [Novolin 70-30 100 Unit/ml Vial] 12 unit SQ QPM 07/31/16 [History] Insulin NPH Hum/Reg Insulin Hm [Novolin 70-30 100 Unit/ml Vial] 22 unit SQ QAM 07/31/16 [History] Metoprolol [Lopressor] 12.5 mg PO BID 07/31/16 [History] Ranitidine HCl [Heartburn Relief] 150 mg PO BID 07/31/16 [History] Ergocalciferol (VITAMIN D2) [Vitamin D2 (50,000 UNIT)] 50,000 unit PO Q14D 08/01 [History] Rosuvastatin [Crestor] 40 mg PO HS #30 tablet 08/02/16 [Rx] Furosemide [Lasix] 20 mg PO DAILY 01/25/18 [History] Nitroglycerin [Nitrostat] 0.4 mg SL Q5M PRN 01/25/18 [History] 3 Allergy/AdvReac Type Severity Reaction Status Date / Time codeine Allergy Rash Verified 06/27/15 13:40 losartan [From Cozaar] Allergy See Verified 08/01/16 11:26 Comments lisinopril AdvReac Cough Verified 08/01/16 11:26 Review of Systems All systems PM: reviewed and no additional remarkable complaints except as stated All systems PM: The remainder of the systems were reviewed and are negative General Surgery Exam Initial Vital Signs Temp Pulse Resp BP Pulse Ox 97.5 F L 101 20 180/79 98 01/25/18 23:31 01/25/18 23:31 01/25/18 23:31 01/25/18 23:31 01/25/18 23:31 - General physical appearance well nourished, no distress, no pain - Eyes normal ocular movement. negative: icteric - Respiratory normal expansion, normal respiratory effort, clear to auscultation - Cardiovascular Cardiovascular exam: Present: RRR, no murmurs/rubs/gallops - Abdomen Abdomen general surgery: Present: bowel sounds present, soft, non tender - Neurologic Present: CN 2-12 grossly intact - Musculoskeletal Present: other (no edema) - Psychiatric Psychiatric general surgery: Present: A&Ox3, appropriate, oriented to person, oriented to place, oriented to time Exam Initial Vital Signs Temp Pulse Resp BP Pulse Ox 97.5 F L 101 20 180/79 98 01/25/18 23:31 01/25/18 23:31 01/25/18 23:31 01/25/18 23:31 01/25/18 23:31 Results - Labs 01/28/18 14:48 01/28/18 06:04 Abnormal lab results RBC 3.09 M/mcL (3.82-4.97) L 01/28/18 14:48 Hgb 9.4 g/dL (11.5-15.4) L 01/28/18 14:48 Hct 29.6 % (35.3-44.9) L 01/28/18 14:48 RDW 15.3 % (11.5-14.5) H 01/28/18 14:48 APTT 51.1 Seconds (26.0-36.0) H D 01/27/18 05:46 Chloride 116 mEq/L (98-107) H 01/28/18 06:04 Carbon Dioxide 18 mEq/L (23-29) L 01/28/18 06:04 BUN 38 mg/dL (8-23) H 01/28/18 06:04 Creatinine 1.77 mg/dL (0.60-1.20) H 01/28/18 06:04 Est GFR ( Amer) 34 (> 60) L 01/28/18 06:04 Est GFR (Non-Af Amer) 28 (> 60) L 01/28/18 06:04 Glucose 148 mg/dL (70-105) H 01/28/18 06:04 POC Glucose 143 mg/dL (58-89) H 01/28/18 05:53 Calcium 8.2 mg/dL (8.6-10.3) L 01/28/18 06:04 Troponin I 8.03 ng/mL (< 0.04) H* 01/27/18 16:25 Stool Occult Blood Positive (Negative) A 01/26/18 19:48 Diabetes panel 01/28/18 Range/Units 06:04 Sodium 139 (136-145) mEq/L Potassium 4.6 (3.5-5.1) mEq/L Chloride 116 H (98-107) mEq/L Carbon Dioxide 18 L (23-29) mEq/L BUN 38 H (8-23) mg/dL Creatinine 1.77 H (0.60-1.20) mg/dL Glucose 148 H (70-105) mg/dL Calcium 8.2 L (8.6-10.3) mg/dL Calcium panel 01/28/18 Range/Units 06:04 Calcium 8.2 L (8.6-10.3) mg/dL Pituitary panel 01/28/18 Range/Units 06:04 Sodium 139 (136-145) mEq/L Potassium 4.6 (3.5-5.1) mEq/L Chloride 116 H (98-107) mEq/L Carbon Dioxide 18 L (23-29) mEq/L BUN 38 H (8-23) mg/dL Creatinine 1.77 H (0.60-1.20) mg/dL Glucose 148 H (70-105) mg/dL Calcium 8.2 L (8.6-10.3) mg/dL Adrenal panel 01/28/18 Range/Units 06:04 Sodium 139 (136-145) mEq/L Potassium 4.6 (3.5-5.1) mEq/L Chloride 116 H (98-107) mEq/L Carbon Dioxide 18 L (23-29) mEq/L BUN 38 H (8-23) mg/dL Creatinine 1.77 H (0.60-1.20) mg/dL Glucose 148 H (70-105) mg/dL Calcium 8.2 L (8.6-10.3) mg/dL All other labs normal. 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
[2018-01-28] MEDS ORDERED: Polyethylene Glycol 3350 255 GM POWDER PO ONE (17:20)
[2018-01-28] MEDS: Cholecalciferol (D-3) 1,000 UNIT TABLET PO SCH (18:11)
[2018-01-28] MEDS: Ringers Solution, Lactated 1,000 ML IVC SCH (18:14)
[2018-01-29] MEDS: Ondansetron 4 MG/2 ML VIAL IVP PRN ×2 (00:47→06:57)
[2018-01-29] MEDS: Insulin LISPRO 300 UNITS/3 ML VIAL SQ SCH ×5 (00:48→22:14)
[2018-01-29] MEDS: Cefepime HCl 2,000 MG in Water for inj. (sterile) 20 ML 20 ML IVP SCH (06:39)
[2018-01-29] MEDS: Pantoprazole 40 MG VIAL IVP SCH ×2 (06:39→17:46)
[2018-01-29] MEDS: Ringers Solution, Lactated 1,000 ML IVC SCH (06:56)
[2018-01-29 07:35] LABS: Basophils % 0.4 %; Eosinophils # 0.2 K/mcL (0.0-0.6); Eosinophils % 2.4 %; Hematocrit 30.4 % (35.3-44.9); Hemoglobin 9.6 g/dL (11.5-15.4); Immature Granulocytes % 0.2 % (0-4); Lymphocytes # 0.7 K/mcL (0.6-4.6); Lymphocytes % 8.2 %; Mean Corpuscular HGB Conc 31.6 g/dL (31.6-35.5); Mean Platelet Volume 11.7 fL (9.4-12.4); Monocytes # 0.7 K/mcL (0.0-1.3); Monocytes % 9.2 %; Neutrophils # 6.4 K/mcL (1.6-8.9); Platelet Count 145 K/mcL (140-400); Red Cell Distribution Width 14.6 % (11.5-14.5); Segmented Neutrophils % 79.6 %
[2018-01-29 07:50] LABS: Calcium 8.7 mg/dL (8.6-10.3); Potassium 4.5 mEq/L (3.5-5.1)
[2018-01-29] MEDS: Aspirin 81 MG TAB.CHEW PO SCH (07:59)
[2018-01-29] MEDS: Cholecalciferol (D-3) 1,000 UNIT TABLET PO SCH (07:59)
[2018-01-29] MEDS: Furosemide 20 MG TABLET PO SCH (07:59)
[2018-01-29] MEDS: Famotidine 20 MG TABLET PO SCH ×2 (07:59→22:13)
--- NOTE | 2018-01-29 12:04 | Anesthesia Evaluation PreOp ---
Date of Encounter: 01/29/18 Time of Encounter: 12:30 - Past History Planned Operation: Double Endo Cardiac History: HTN, Hyperlipidemia, Cardiac Surgery (CABG X3 2011), Other (CAD ) Pulmonary History: Denies Any Significant HX MEDICAID SPECIALIST History: Denies Any Significant HX Other Medical History: Renal (CKD), Diabetes Type II Anesthesia History: No Prior Anesthetic Complications : No Alcohol Use: none Drug use: none Medications and Allergies Insulin NPH Hum/Reg Insulin Hm [Novolin 70-30 100 Unit/ml Vial] 12 unit SQ QPM 07/31/16 [History] Insulin NPH Hum/Reg Insulin Hm [Novolin 70-30 100 Unit/ml Vial] 22 unit SQ QAM 07/31/16 [History] Metoprolol [Lopressor] 12.5 mg PO BID 07/31/16 [History] Ranitidine HCl [Heartburn Relief] 150 mg PO BID 07/31/16 [History] Ergocalciferol (VITAMIN D2) [Vitamin D2 (50,000 UNIT)] 50,000 unit PO Q14D 08/01 [History] Rosuvastatin [Crestor] 40 mg PO HS #30 tablet 08/02/16 [Rx] Furosemide [Lasix] 20 mg PO DAILY 01/25/18 [History] Nitroglycerin [Nitrostat] 0.4 mg SL Q5M PRN 01/25/18 [History] 3 Allergy/AdvReac Type Severity Reaction Status Date / Time codeine Allergy Rash Verified 06/27/15 13:40 losartan [From Cozaar] Allergy See Verified 08/01/16 11:26 Comments lisinopril AdvReac Cough Verified 08/01/16 11:26 - Meds/Allergy Pre-op Review Medications Reviewed: Yes Allergies Reviewed: Yes Beta Blockers on Current Med List: Yes (Metoprolol today) Anesthesia Results - Labs 01/29/18 07:04 01/29/18 07:04 Laboratory Tests 01/29/18 01/29/18 07:04 07:04 Hgb 9.6 L Hct 30.4 L Plt Count 145 Sodium 139 Potassium 4.5 BUN 37 H Creatinine 1.81 H Glucose 303 H - Imaging EKG: report reviewed (SR) Additional studies: ECHO EF 55% severe pulm htn Anesthesia Exam O2 Sat Weight 60.5 kg O2 Sat by Pulse Oximetry 98 O2 Sat by Pulse Oximetry 97 O2 Sat by Pulse Oximetry 95 O2 Sat by Pulse Oximetry 95 O2 Sat by Pulse Oximetry 98 O2 Sat by Pulse Oximetry 98 Vital Signs Temp Pulse Resp BP Pulse Ox 97.5 F L 101 20 180/79 98 01/25/18 23:31 01/25/18 23:31 01/25/18 23:31 01/25/18 23:31 01/25/18 23:31 Height: 5'3 Weight: 133 lbs NPO (# of Hours): MN Pain Scale: 0 - HEENT Pupil (Motor): Pupils equal, EOMI Mallampati: II Teeth: Normal Oral Opening: Greater than 3 - MEDICAID SPECIALIST LOC: Oriented MEDICAID SPECIALIST Motor: Normal RUE, Normal LUE, Normal RLE, Normal LLE, Normal Face MEDICAID SPECIALIST Sensory: Normal: RUE, LUE, RLE, LLE, Face - Cardiac Rhythm: Regular Murmur: None JVD: No Carotid Bruit: No - Pulmonary Breath Sounds: bilateral Clear Respiratory Effort: Symmetrical Anesthesia Assess/Plan ASA Score: 4 (CKD HTN CAD DM Severe Pulmonary HTN) Modified [place] Scale for Level of Consciousness: Cooperative, oriented, and tranquil Anesthetic Plan: MAC Monitoring Plan: Standard Monitors Recovery Plan: Other (Discussed MAC, agrees to proceed)
[2018-01-29] MEDS ORDERED: Propofol 500 MG/50 ML INFUS..BTL ONE (12:40)
[2018-01-29] MEDS ORDERED: Lidocaine -MPF 2% 2 ML VIAL ONE (12:40)
--- NOTE | 2018-01-29 12:46 | Internal Med Progress Note ---
Date of Encounter: 01/29/18 Time of Encounter: 12:43 - Assessment and plan (1) Chest pain Current Visit: Yes Status: Acute Assessment and plan: Remains pain-free. Cardiology consulted; appreciate input. Deferring cath for now until anemia stale and EGD/colonscopy completed by GI. Plan for EGD/ colonoscopy today. Then likely plan for cath. Continue aspirin, beta shannon, statin, and PRN metoprolol IV. Nitro drip weaned. Continue pain control. Qualifiers: Chest pain type: precordial pain Qualified Code(s): R07.2 - Precordial pain (2) Anemia Current Visit: Yes Status: Chronic Assessment and plan: Acute on chronic. S/P 1 unit PRBC. Hgb stable today. Continue IV protonix. GI consulted; appreciate input. Plan for EGD/colonoscopy today. Check CBC in AM. Qualifiers: Anemia type: due to chronic kidney disease Chronic kidney disease stage: stage 4 (severe) Qualified Code(s): N18.4 - Chronic kidney disease, stage 4 ( severe); D63.1 - Anemia in chronic kidney disease; D63.1 - Anemia in chronic kidney disease (3) Ventilator associated pneumonia Current Visit: Yes Status: Acute Assessment and plan: Respiratory status stable. Continue IV cefepime. (4) CKD (chronic kidney disease) stage 4, GFR 15-29 ml/min Current Visit: Yes Status: Chronic Assessment and plan: Cr came u to 1.81 this AM. Metabolic acidosis improved. Continue LR at 75 ml/ hr. Will start diet after EGD/colonoscopy today. NPO again after midnight for possible cath tomorrow. Recheck BMP in AM. (5) Coronary artery disease Current Visit: Yes Status: Chronic Assessment and plan: Cardiology consulted. Plan as per above. Qualifiers: Coronary Disease-Associated Artery/Lesion type: bypass graft [place] vs. transplanted heart: [place] heart Associated angina: without angina Qualified Code(s): I25.810 - Atherosclerosis of coronary artery bypass graft(s) without angina pectoris (6) Essential hypertension Current Visit: Yes Status: Chronic Assessment and plan: BP improved. Continue home medications. (7) Type 2 diabetes mellitus with diabetic nephropathy, with long-term current use of insulin Current Visit: Yes Status: Chronic Assessment and plan: Continue accuchecks and SSI QID AC/HS. Continue home basal insulin. (8) DVT prophylaxis Current Visit: Yes Status: Acute Assessment and plan: Continue SCDs. Defer anticoagulation due to anemia/suspected GI bleed. - Time Spent With Patient less than 15 minutes - Subjective Interval history: Patient had no acute events overnight. She feels "ok" today. No further episodes of chest pain. She is NPO for EGD/colonoscopy, but wants to eat. She denies SOB, fever, or chills. She has no new complaints. - Constitutional Vitals: Temp Pulse Resp BP Pulse Ox 97.7 F 73 19 125/45 99 01/29/18 08:00 01/29/18 12:00 01/29/18 12:00 01/29/18 12:00 01/29/18 12:00 General appearance: Present: cooperative, A&O X 3, pleasant, no acute distress, answers questions appropriately - Respiratory Respiratory exam: Present: CTAB. Absent: accessory muscle use, rales, rhonchi, wheezes Additional comments: Normal WOB - Cardiovascular Cardiovascular exam: Present: RRR, +S1, +S2. Absent: diastolic murmur, gallop, rubs, systolic murmur Additional comments: No BLE edema - GI/Abdominal GI/Abdominal exam: Present: normal bowel sounds, soft. Absent: distended, hepatomegaly, mass, splenomegaly, tenderness - Psychiatric Psychiatric exam: Present: normal affect, normal mood. Absent: anxious, depressed - Skin Skin exam: Present: dry, intact, warm. Absent: cyanosis, rash Internal Medicine: Result - Labs CBC & Chem 7: 01/29/18 07:04 01/29/18 07:04 Labs: Short CBC 01/28/18 01/29/18 Range/Units 14:48 07:04 WBC 7.9 8.0 (4.3-11.1) K/mcL Hgb 9.4 L 9.6 L (11.5-15.4) g/dL Hct 29.6 L 30.4 L (35.3-44.9) % Plt Count 150 145 (140-400) K/mcL Neutrophils # 6.4 6.4 (1.6-8.9) K/mcL BMP 01/29/18 07:04 Sodium 139 Potassium 4.5 Chloride 108 H Carbon Dioxide 19 L BUN 37 H Creatinine 1.81 H Glucose 303 H Calcium 8.7 - ABG Interpretation ABG results: PT/INR, D-dimer PT 11.9 Seconds (9.4-12.1) 01/26/18 13:44 - VTE Reasons for not Prescribing Prophylaxis: Medical contraindication (Anemia, Suspected GI Bleed) Documentation of Mechanical Device: Intermittent pneumatic compression device Consult Discharge Plan - Plan Instructions: Heart Failure (DC), Chest Pain (DC), Diabetes Mellitus Type 2 in Adults (DC), Chronic Hypertension (DC), Pneumonia (DC), Joint Replacement Surgery, 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
--- NOTE | 2018-01-29 13:35 | Event Note ---
Date of Encounter: 01/29/18 Time of Encounter: 13:34 EGD and colonoscopy performed. EGD showed small angiodysplasia in the fundus. Biopsied and cauterized. Colonoscopy was normal. Will advance diet. Await pathology. Will sign off; thank you.
[2018-01-30 06:06] LABS: Basophils % 0.4 %; Eosinophils # 0.3 K/mcL (0.0-0.6); Eosinophils % 3.5 %; Hematocrit 28.7 % (35.3-44.9); Hemoglobin 8.9 g/dL (11.5-15.4); Immature Granulocytes % 0.3 % (0-4); Lymphocytes # 0.7 K/mcL (0.6-4.6); Lymphocytes % 9.5 %; Mean Corpuscular Hemoglobin 30.1 pg (28.0-33.3); Mean Platelet Volume 12.4 fL (9.4-12.4); Monocytes # 0.8 K/mcL (0.0-1.3); Monocytes % 10.8 %; Neutrophils # 5.3 K/mcL (1.6-8.9); Platelet Count 147 K/mcL (140-400); Red Blood Count 2.96 M/mcL (3.82-4.97); Red Cell Distribution Width 14.6 % (11.5-14.5); Segmented Neutrophils % 75.5 %
[2018-01-30] MEDS: Cefepime HCl 2,000 MG in Water for inj. (sterile) 20 ML 20 ML IVP SCH (06:20)
[2018-01-30] MEDS: Pantoprazole 40 MG VIAL IVP SCH ×2 (06:20→18:32)
[2018-01-30 06:23] LABS: Calcium 8.3 mg/dL (8.6-10.3); Potassium 4.3 mEq/L (3.5-5.1)
[2018-01-30] MEDS: Insulin LISPRO 300 UNITS/3 ML VIAL SQ SCH ×4 (06:23→21:40)
[2018-01-30] MEDS: Ondansetron 4 MG/2 ML VIAL IVP PRN ×2 (06:32→14:37)
[2018-01-30] MEDS: Famotidine 20 MG TABLET PO SCH ×2 (09:02→21:23)
[2018-01-30] MEDS: Aspirin 81 MG TAB.CHEW PO SCH (09:03)
[2018-01-30] MEDS: Cholecalciferol (D-3) 1,000 UNIT TABLET PO SCH (09:03)
[2018-01-30] MEDS: Furosemide 20 MG TABLET PO SCH (09:03)
--- NOTE | 2018-01-30 09:17 | Cardiology Progress Note ---
<Yamileth Acosta - Last Filed: 01/30/18 13:13> Date of Encounter: 01/30/18 Time of Encounter: 08:45 Assessment and Plan (1) NSTEMI (non-ST elevated myocardial infarction) Current Visit: Yes Status: Acute Concern for NSTEMI. 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 Reported nausea, diaphoresis, SOB. Troponin, 0.03, 0.71, 5.22, 8.76, 8.03 01/25/2018 EKG: HR 108 ST depression in lateral leads with T wave inversion 01/26/2018 EKG: HR 99 ST depression in lateral leads 01/26/2018 EKG: HR 84, NSR non specific ST ,T changes PMH: CABG 2010, LHC 2007, DM, CKD Patient denies chest pain, palpitations. No arrhythmias or murmur on exam. Hgb 8.9 Cr 2.0 -TTE: LVEF 55%, mild- moderate MR, moderate- severe TR, severe pulmonary hypertension, RVSP 70-75mmHg. -LHC once Hgb stable and ASHLEY has resolved -start heparin -NTG drip stopped since patient is chest pain free (2) Anemia Current Visit: Yes Status: Chronic Anemia concerning for GI bleed in setting of NSTEMI. Hgb 8.9 (9.6) baseline is 9-10 stool occult positive Last colonoscopy was 35yr ago. She is a patient of Dr. Sharp and is to get an iron transfusion 01/28/2018 and 02/04/2018. Patient is s/p right shoulder arthroscope 01/25/2018. shoulder u/s negative for hematoma 1 PRBC given -01/29/2018 EGD: demonstrated small angiodysplasia in fundus. Biopsies and cauterization. -per discussion with surgery, heparin may be re-started and LHC performed Qualifiers: Anemia type: due to chronic kidney disease Chronic kidney disease stage: stage 4 (severe) Qualified Code(s): N18.4 - Chronic kidney disease, stage 4 ( severe); D63.1 - Anemia in chronic kidney disease; D63.1 - Anemia in chronic kidney disease (3) Acute kidney injury superimposed on CKD Current Visit: No Status: Acute History of CKD, patient of Dr. Sharp. Creatinine 2.0 (1.32) -Renal function must be improved prior to [facility]. Hold lasix. management per primary team. Avoid nephrotoxic agents. (4) Ventilator associated pneumonia Current Visit: Yes Status: Acute B/L pneumonia demonstrated by CXR that is concerning for ventilator associated pneumonia due to recent arthroscope. -currently on cefepime (5) Chest pain Current Visit: Yes Status: Acute Currently patient is chest pain free. Last night in bed she had pressure like back pain that radiated down left arm, similar to when she had a CABG. Reported nausea, diaphoresis, SOB. -see plan above Qualifiers: Chest pain type: precordial pain Qualified Code(s): R07.2 - Precordial pain (6) Coronary artery disease Current Visit: Yes Status: Chronic PMH: CABG x3 stent 2010, LHC 2007. Is a patient of Yuan Moreno of cardiology. 12/2016 TTE: EF 60%. Mild- moderate AR, mild MR, moderate-severe pulmonary hypertension. -continue asa, crestor, BB, lasix Qualifiers: Coronary Disease-Associated Artery/Lesion type: bypass graft [place] vs. transplanted heart: [place] heart Associated angina: without angina Qualified Code(s): I25.810 - Atherosclerosis of coronary artery bypass graft(s) without angina pectoris (7) Type 2 diabetes mellitus with diabetic nephropathy, with long-term current use of insulin Current Visit: Yes Status: Chronic history of diabetes. -management per primary team Discussion w patient/family: The assessment and plan as outlined above was discussed with the patient and/or family members who expressed understanding and agreement. All questions were answered. Thank you for involving us in the care of your patient. Please call with any questions. Subjective Principal diagnosis: chest pain Interval history: Patient denies chest pain, palpitations, bleeding, shortness of breath. -Troponin peaked to 8.67 and then trended down to 8.03. Heparin was started then stopped due to drop in Hgb concerning for GI bleed. Patient given 1 PRBC. -EGD demonstrated small angiodysplasia in fundus. Biopsies were taken. Objective Vital Signs, Last 4 Hours Temp Pulse Resp BP Pulse Ox 01/30/18 07:44 98.4 F 84 16 140/48 100 01/30/18 05:36 98.6 F 79 18 130/44 100 General: Conversant, No Apparent Distress HEENT: Atraumatic, Mucus Membranes Moist Neck: No JVD Cardiac: Reg Rate and Rhythm, Normal S1 and S2 Lungs: Normal Breath Sounds, No Wheeze, Rales, Rhonchi Neuro: Alert and responsive Abdomen: Soft, Non-Tender Skin: No rashes noted on visualized skin Musculoskeletal: No Chest Wall Tenderness Extremities: No Edema Results 01/30/18 12:05 01/30/18 04:52 Lab Results 01/30/18 01/30/18 04:52 04:52 WBC 7.1 Hgb 8.9 L Hct 28.7 L Plt Count 147 Sodium 139 Potassium 4.3 Chloride 108 H Carbon Dioxide 19 L BUN 38 H Creatinine 2.00 H Glucose 307 H Calcium 8.3 L - VTE Reasons for not Prescribing Prophylaxis: Medical contraindication (Anemia, Suspected GI Bleed) Documentation of Mechanical Device: Intermittent pneumatic compression device Consult Discharge Plan - Plan Instructions: Heart Failure (DC), Chest Pain (DC), Diabetes Mellitus Type 2 in Adults (DC), Chronic Hypertension (DC), Pneumonia (DC), Joint Replacement Surgery, Scale Model Maker (GEN) Referrals: Tawana Quintero, [facility] [Primary Care Provider] - <Mohini Ferris - Last Filed: 01/30/18 13:48> Date of Encounter: 01/30/18 Assessment and Plan (1) Chest pain Current Visit: Yes Status: Acute Currently patient is chest pain free. Last night in bed she had pressure like back pain that radiated down left arm, similar to when she had a CABG. Reported nausea, diaphoresis, SOB. -see plan above I examined this patient and my medical decision-making was reviewed with the Resident Physician. I agree with the documented findings, disposition and treatment plan as described except to the extent set forth below. 73 YOF s/p CABG and PCI here with NSTEMI and GI bleed. Cleared for heparin IV and potential LHC for peak trop of 8.0 by GI after EGD. Plan for LHC when Cr at baseline and okay by Nephrology. Qualifiers: Chest pain type: precordial pain Qualified Code(s): R07.2 - Precordial pain Discussion w patient/family: The assessment and plan as outlined above was discussed with the patient and/or family members who expressed understanding and agreement. All questions were answered. Thank you for involving us in the care of your patient. Please call with any questions. Objective Vital Signs, Last 4 Hours Temp Pulse Resp BP Pulse Ox 01/30/18 11:53 98.7 F 82 16 120/53 100 Results 01/30/18 12:05 01/30/18 04:52 Lab Results 01/30/18 01/30/18 01/30/18 04:52 04:52 12:05 WBC 7.1 7.1 Hgb 8.9 L 9.5 L Hct 28.7 L 30.3 L Plt Count 147 159 INR APTT Sodium 139 Potassium 4.3 Chloride 108 H Carbon Dioxide 19 L BUN 38 H Creatinine 2.00 H Glucose 307 H Calcium 8.3 L 01/30/18 12:05 WBC Hgb Hct Plt Count INR 1.3 APTT 24.4 L D Sodium Potassium Chloride Carbon Dioxide BUN Creatinine Glucose Calcium
--- NOTE | 2018-01-30 11:06 | Internal Med Progress Note ---
Date of Encounter: 01/30/18 Time of Encounter: 11:01 - Assessment and plan (1) Chest pain Current Visit: Yes Status: Acute Assessment and plan: Remains pain-free. Cardiology consulted; appreciate input. Deferring cath for now until anemia stable and renal function improved. Plan for cath once medically stable. Start liquid diet today; NPO again after midnight in anticipation of cath. Continue aspirin, beta shannon, statin, and PRN metoprolol IV. Nitro drip weaned. Continue pain control. Qualifiers: Chest pain type: precordial pain Qualified Code(s): R07.2 - Precordial pain (2) Anemia Current Visit: Yes Status: Chronic Assessment and plan: Acute on chronic. S/P 1 unit PRBC. Hgb slightly down today. Continue IV protonix. GI consulted; appreciate input. EGD/colonoscopy completed yesterday. Check CBC in AM. Qualifiers: Anemia type: due to chronic kidney disease Chronic kidney disease stage: stage 4 (severe) Qualified Code(s): N18.4 - Chronic kidney disease, stage 4 ( severe); D63.1 - Anemia in chronic kidney disease; D63.1 - Anemia in chronic kidney disease (3) Ventilator associated pneumonia Current Visit: Yes Status: Acute Assessment and plan: Respiratory status stable. Continue IV cefepime. (4) CKD (chronic kidney disease) stage 4, GFR 15-29 ml/min Current Visit: Yes Status: Chronic Assessment and plan: Cr came u to 2.00 this AM. Metabolic acidosis improved. Continue LR at 75 ml/ hr. Will start liquid diet; NPO again after midnight for possible cath tomorrow. Consult nephrology; appreciate input. Recheck BMP in AM. (5) Coronary artery disease Current Visit: Yes Status: Chronic Assessment and plan: Cardiology consulted. Plan as per above. Qualifiers: Coronary Disease-Associated Artery/Lesion type: bypass graft [place] vs. transplanted heart: [place] heart Associated angina: without angina Qualified Code(s): I25.810 - Atherosclerosis of coronary artery bypass graft(s) without angina pectoris (6) Essential hypertension Current Visit: Yes Status: Chronic Assessment and plan: BP improved. Continue home medications. (7) Type 2 diabetes mellitus with diabetic nephropathy, with long-term current use of insulin Current Visit: Yes Status: Chronic Assessment and plan: Continue accuchecks and SSI QID AC/HS. Continue home basal insulin. (8) DVT prophylaxis Current Visit: Yes Status: Acute Assessment and plan: Continue SCDs. Defer anticoagulation due to anemia/suspected GI bleed. - Time Spent With Patient less than 15 minutes - Subjective Interval history: Patient had no acute events overnight. She has had some mild nausea this AM; no blood in vomitus. No further episodes of chest pain. She wants to try liquid diet since she will likely not go for heart cath today. She denies SOB, fever, or chills. She has no new complaints. - Constitutional Vitals: Temp Pulse Resp BP Pulse Ox 98.4 F 84 16 140/48 100 01/30/18 07:44 01/30/18 07:44 01/30/18 07:44 01/30/18 07:44 01/30/18 07:44 General appearance: Present: cooperative, A&O X 3, pleasant, no acute distress, answers questions appropriately - Respiratory Respiratory exam: Present: CTAB. Absent: accessory muscle use, rales, rhonchi, wheezes Additional comments: Normal WOB - Cardiovascular Cardiovascular exam: Present: RRR, +S1, +S2. Absent: diastolic murmur, gallop, rubs, systolic murmur Additional comments: No BLE edema - GI/Abdominal GI/Abdominal exam: Present: normal bowel sounds, soft. Absent: distended, hepatomegaly, mass, splenomegaly, tenderness - Psychiatric Psychiatric exam: Present: normal affect, normal mood. Absent: anxious, depressed - Skin Skin exam: Present: dry, intact, warm. Absent: cyanosis, rash Internal Medicine: Result - Labs CBC & Chem 7: 01/30/18 04:52 01/30/18 04:52 Labs: Short CBC 01/30/18 Range/Units 04:52 WBC 7.1 (4.3-11.1) K/mcL Hgb 8.9 L (11.5-15.4) g/dL Hct 28.7 L (35.3-44.9) % Plt Count 147 (140-400) K/mcL Neutrophils # 5.3 (1.6-8.9) K/mcL BMP 01/30/18 04:52 Sodium 139 Potassium 4.3 Chloride 108 H Carbon Dioxide 19 L BUN 38 H Creatinine 2.00 H Glucose 307 H Calcium 8.3 L - ABG Interpretation ABG results: PT/INR, D-dimer PT 11.9 Seconds (9.4-12.1) 01/26/18 13:44 - VTE Reasons for not Prescribing Prophylaxis: Medical contraindication (Anemia, Suspected GI Bleed) Documentation of Mechanical Device: Intermittent pneumatic compression device Consult Discharge Plan - Plan Instructions: Heart Failure (DC), Chest Pain (DC), Diabetes Mellitus Type 2 in Adults (DC), Chronic Hypertension (DC), Pneumonia (DC), Joint Replacement Surgery, 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
[2018-01-30] MEDS ORDERED: Ondansetron 4 MG/2 ML VIAL IVP STA (11:16)
[2018-01-30] MEDS ORDERED: *HR* Heparin 5,000 UNIT/ML VIAL IVP PRN (11:50)
[2018-01-30] MEDS ORDERED: *HR* Heparin 5,000 UNIT/ML VIAL IVP ONE (11:50)
[2018-01-30 12:37] LABS: Hematocrit 30.3 % (35.3-44.9); Hemoglobin 9.5 g/dL (11.5-15.4); Mean Corpuscular HGB Conc 31.4 g/dL (31.6-35.5); Mean Corpuscular Hemoglobin 30.4 pg (28.0-33.3); Mean Corpuscular Volume 96.8 fL (83.0-100.0); Mean Platelet Volume 11.9 fL (9.4-12.4); Platelet Count 159 K/mcL (140-400); Red Blood Count 3.13 M/mcL (3.82-4.97); Red Cell Distribution Width 14.6 % (11.5-14.5)
[2018-01-30 12:44] LABS: INR 1.3; Prothrombin Time 14.1 Seconds (9.4-12.1)
[2018-01-30 12:55] LABS: Activated Partial Thrombo Time 24.4 Seconds (26.0-36.0)
[2018-01-30] MEDS: Ringers Solution, Lactated 1,000 ML IVC SCH (13:18)
[2018-01-30] MEDS: Heparin 25,000 UNIT/500 ML D5W 25,000 UNIT/500 ML BAG IVC SCH (13:19)
--- NOTE | 2018-01-30 16:05 | Nephrology Consult Note ---
<Anastacio Oscar - Last Filed: 01/30/18 16:01> Date of Encounter: 01/30/18 Time of Encounter: 12:00 Assessment and Plan (1) Acute kidney injury superimposed on CKD Current Visit: Yes Status: Acute ASHLEY on CKD. Patient follows with Dr. Sharp. Cr on admission was 1.47, baseline 1.5-1.9. Currently Cr is going up, today 2.0. ASHLEY is most likely due to dehydration/intravascularly dry 2/2 vomiting, and increased dose of lasix when admitted to hospital. Will further workup for ASHLEY. Will not require AGENT BASED MODELER at this time. - Stop lasix (home dose is 10, was receiving 20 in hospital) - Uurea and Ucr pending - fluid resuscitation - renal diet (2) Anemia Current Visit: Yes Status: Chronic chronic, and stable Qualifiers: Anemia type: due to chronic kidney disease Chronic kidney disease stage: stage 4 (severe) Qualified Code(s): N18.4 - Chronic kidney disease, stage 4 ( severe); D63.1 - Anemia in chronic kidney disease; D63.1 - Anemia in chronic kidney disease (3) Chest pain Current Visit: Yes Status: Acute per primary and cardiology Qualifiers: Chest pain type: precordial pain Qualified Code(s): R07.2 - Precordial pain (4) Coronary artery disease Current Visit: Yes Status: Chronic per primary team Qualifiers: Coronary Disease-Associated Artery/Lesion type: bypass graft [place] vs. transplanted heart: [place] heart Associated angina: without angina Qualified Code(s): I25.810 - Atherosclerosis of coronary artery bypass graft(s) without angina pectoris History of Present Illness - Reason for Consult Consult date: 01/30/18 Acute Kidney Injury, Chronic Kidney Disease Requesting physician: Ryan Vera - Chief Complaint chest pain - History of Present Illness Ms Andres is a 73 yo F w/ pmhx of CKD presented to [facility] with Chest pain. Nephrology is consulted for ASHLEY on CKD. Patient is seen and examined. Patient at home was on 1/2 a 20 lasix pill at home, on admission she was started on a 20 lasix pill. Patient reports actively feeling nauseated, and vomiting. Patient denies current fever, chills, chest pain. Past Med Surg Social Fam HX - Past Medical History Medical history: coronary artery disease, diabetes, GERD, hyperlipidemia, hypertension, myocardial infarction, renal disease Psychiatric history: no psych history - Past Surgical History Surgical History: coronary bypass (CABG), orthopedic, other (Shoulder scope), other (EGD 2010, colonoscopy greater than 10 year ago) - Social History Smoking Status: Unknown if ever smoked Smokeless Tobacco Status: No Alcohol use: none Drug use: none - Family History Father Living Status: Age at : 89 Cause of : [place] Hx Family Cardiac Disorders: Yes (CAD, [place]) Mother Living Status: Age at : 67 Cause of : DM, [place] Hx Family Cardiac Disorders: Yes (CAD) Hx Family Endocrine Disorder: Yes (DMII, kidney problems) Medications and Allergies Insulin NPH Hum/Reg Insulin Hm [Novolin 70-30 100 Unit/ml Vial] 12 unit SQ QPM 07/31/16 [History] Insulin NPH Hum/Reg Insulin Hm [Novolin 70-30 100 Unit/ml Vial] 22 unit SQ QAM 07/31/16 [History] Metoprolol [Lopressor] 12.5 mg PO BID 07/31/16 [History] Ranitidine HCl [Heartburn Relief] 150 mg PO BID 07/31/16 [History] Ergocalciferol (VITAMIN D2) [Vitamin D2 (50,000 UNIT)] 50,000 unit PO Q14D 08/01 [History] Rosuvastatin [Crestor] 40 mg PO HS #30 tablet 08/02/16 [Rx] Furosemide [Lasix] 20 mg PO DAILY 01/25/18 [History] Nitroglycerin [Nitrostat] 0.4 mg SL Q5M PRN 01/25/18 [History] 3 Allergy/AdvReac Type Severity Reaction Status Date / Time codeine Allergy Rash Verified 06/27/15 13:40 losartan [From Cozaar] Allergy See Verified 08/01/16 11:26 Comments lisinopril AdvReac Cough Verified 08/01/16 11:26 promethazine [From Phenergan] AdvReac Confusion Verified 02/02/18 14:46 Review of Systems All Systems: reviewed and no additional remarkable complaints except as stated Exam - Vital Signs Vital signs: Initial Vital Signs Temp Pulse Resp BP Pulse Ox 97.5 F L 101 20 180/79 98 01/25/18 23:31 01/25/18 23:31 01/25/18 23:31 01/25/18 23:31 01/25/18 23:31 Vital Signs - Last 8 Hours Temp Pulse Resp BP Pulse Ox 01/30/18 11:53 98.7 F 82 16 120/53 100 Intake and Output 01/30/18 01/30/18 01/30/18 07:59 15:59 23:59 Intake Total 20 / 20 Output Total 300 / 300 Balance -300 / -300 Intake: IV Fluids Maxipime 2,000 MG In Water for inj. (sterile) 20 ML @ 300 mls/ hr IVP Q24H [facility] Rx#:[id number] Oral 0 / 0 Output: Urine 300 / 300 Other: Stool Size Smear Stool Consistency loose Stool Color Brown Yellow # Voids 1 1 Weight 59.1 kg Blood Glucose* 308 258 Patient Weight 01/30/18 23:59 Weight 59.1 kg - General Appearance General appearance: appears started age, moderate distress, fatigue, frail Neck: supple Respiratory: clear Cardiology: no edema, regular rate, regular rhythm Gastrointestinal: hypoactive bowel sounds Integumentary: warm and dry Neurologic: alert and oriented x3 Psychiatric: mood/affect appropriate, cooperative Results - Lab Results 01/30/18 12:05 01/30/18 04:52 Most recent lab results Calcium 8.3 mg/dL (8.6-10.3) L 01/30/18 04:52 Magnesium 2.0 mg/dL (1.6-2.6) 01/27/18 05:46 Consult Discharge Plan - Plan Instructions: Heart Failure (DC), Chest Pain (DC), Diabetes Mellitus Type 2 in Adults (DC), Chronic Hypertension (DC), Pneumonia (DC), Joint Replacement Surgery, Single Needle Operator (GEN) Referrals: Tawana Quintero, RN MDS COORDINATOR [Primary Care Provider] - <Alfred Gill - Last Filed: 02/06/18 00:30> Date of Encounter: 01/30/18 Exam - Vital Signs Vital signs: Initial Vital Signs Temp Pulse Resp BP Pulse Ox 97.5 F L 101 20 180/79 98 01/25/18 23:31 01/25/18 23:31 01/25/18 23:31 01/25/18 23:31 01/25/18 23:31 Vital Signs - Last 8 Hours Temp Pulse Resp BP Pulse Ox 02/05/18 22:50 98 F 76 16 146/63 97 02/05/18 20:16 97.9 F 84 16 118/82 98 Intake and Output 02/05/18 02/05/18 02/06/18 15:59 23:59 07:59 Intake Total 120 / 120 0 / 0 Output Total 0 / 0 175 / 175 Balance 120 / 120 -175 / -175 Intake: Oral 120 / 120 0 / 0 Output: Urine 0 / 0 175 / 175 Other: Meal Breakfast Percent of Meal Consumed 30% Blood Glucose* 249 342 Results - Lab Results 02/04/18 05:48 02/05/18 10:28 Most recent lab results Calcium 7.9 mg/dL (8.6-10.3) L 02/05/18 10:28 Magnesium 1.9 mg/dL (1.6-2.6) 02/01/18 04:21 Urine Creatinine 52 mg/dL 02/03/18 07:25 - Attending Attestation I examined this patient and my medical decision-making was reviewed with the Resident Physician. I agree with the documented findings, disposition and treatment plan as described except to the extent set forth below. Pt seen and examined known to me from outpatient management of her CKD with baseline SCr around 1.5 to 1.9 GFr 20-30s with PMH of DM and HTN admitted with chest pain/back pain. She is also /p shoulder surgery with hypotensive episode noted. Renal consulted for rising SCr during hospital stay.She was noted with decreased po intake due to N/D. Etiology of ASHLEY likely pre-renal in the setting of hypotension with surgery, diuretics use and poor po intake along with N/D. Will initiate ASHLEY workup as ordered above but also add urine eosinophils. will consider US of kidney if SCr continues to worse. Avoid nephrotoxins if possible. No acute indication for AGENT BASED MODELER at this time.
[2018-01-30] MEDS: Acetaminophen 325 MG TABLET PO PRN ×2 (16:49→21:23)
[2018-01-30] MEDS: *HR* Heparin 5,000 UNIT/ML VIAL IVP PRN (21:30)
[2018-01-30] MEDS ORDERED: Insulin DETEMIR 100 UNIT/ML X5UNITS SQ ONE ×2 (23:45→23:46)
[2018-01-31 03:33] LABS: Basophils % 0.1 %; Eosinophils # 0.1 K/mcL (0.0-0.6); Eosinophils % 0.6 %; Hemoglobin 8.9 g/dL (11.5-15.4); Immature Granulocytes % 0.3 % (0-4); Lymphocytes # 0.6 K/mcL (0.6-4.6); Lymphocytes % 7.2 %; Mean Corpuscular HGB Conc 31.8 g/dL (31.6-35.5); Mean Corpuscular Hemoglobin 30.8 pg (28.0-33.3); Mean Corpuscular Volume 96.9 fL (83.0-100.0); Mean Platelet Volume 11.5 fL (9.4-12.4); Monocytes # 0.8 K/mcL (0.0-1.3); Monocytes % 10.5 %; Neutrophils # 6.5 K/mcL (1.6-8.9); Platelet Count 148 K/mcL (140-400); Red Blood Count 2.89 M/mcL (3.82-4.97); Red Cell Distribution Width 14.5 % (11.5-14.5); Segmented Neutrophils % 81.3 %
[2018-01-31 03:42] LABS: Calcium 8.1 mg/dL (8.6-10.3); Potassium 4.5 mEq/L (3.5-5.1)
[2018-01-31] MEDS: Ringers Solution, Lactated 1,000 ML IVC SCH ×2 (03:59→18:04)
[2018-01-31] MEDS: *HR* Heparin 5,000 UNIT/ML VIAL IVP PRN ×2 (04:00→21:29)
[2018-01-31] MEDS: Ondansetron 4 MG/2 ML VIAL IVP PRN (04:21)
[2018-01-31 04:39] LABS: Bilirubin,Urine Negative (Negative); Blood,Urine Moderate (Negative); Clarity,Urine Cloudy (Clear); Color,Urine Yellow (Yellow); Glucose,Urine (UA) Normal (Normal); Ketones,Urine Trace mg/dL (Negative); Leukocyte Esterase,Urine Negative (Negative); Nitrite,Urine Negative (Negative); PH,Urine 5.5 pH Units (5.0-8.0); Protein,Urine 100 mg/dL (Neg-Trace); Urobilinogen,Urine Normal (Normal)
[2018-01-31 04:41] LABS: Bacteria,Urine None Seen per hpf (None-Few); Hyaline Casts,Urine None Seen per lpf (None-Few); RBC,Urine 0-3 per hpf (0-3); Squamous Epithelial Cell,Urine Many per lpf (None-Few); WBC,Urine 0-3 per hpf (0-3)
[2018-01-31] MEDS: Insulin LISPRO 300 UNITS/3 ML VIAL SQ SCH ×6 (06:27→22:38)
[2018-01-31] MEDS: Pantoprazole 40 MG VIAL IVP SCH (06:36)
[2018-01-31] MEDS: Cefepime HCl 2,000 MG in Water for inj. (sterile) 20 ML 20 ML IVP SCH (06:37)
[2018-01-31] MEDS: Cholecalciferol (D-3) 1,000 UNIT TABLET PO SCH (07:55)
[2018-01-31] MEDS: Aspirin 81 MG TAB.CHEW PO SCH (07:55)
[2018-01-31] MEDS: Famotidine 20 MG TABLET PO SCH ×2 (07:56→21:24)
--- NOTE | 2018-01-31 08:46 | Nephrology Progress Note ---
<Anastacio Oscar - Last Filed: 01/31/18 16:16> Date of Encounter: 01/31/18 Time of Encounter: 08:46 - Assessment and Plan (2) Coronary artery disease Status: Chronic per primary team Qualifiers: Coronary Disease-Associated Artery/Lesion type: bypass graft [place] vs. transplanted heart: [place] heart Associated angina: without angina Qualified Code(s): I25.810 - Atherosclerosis of coronary artery bypass graft(s) without angina pectoris (6) Anemia Status: Chronic per primary team, most likely chronic. Qualifiers: Anemia type: due to chronic kidney disease Chronic kidney disease stage: stage 4 (severe) Qualified Code(s): N18.4 - Chronic kidney disease, stage 4 ( severe); D63.1 - Anemia in chronic kidney disease; D63.1 - Anemia in chronic kidney disease (13) Acute kidney injury superimposed on CKD Status: Acute ASHLYE on CKD. Cr on admission 2.0, and has increased to 3.28. FEUrea 46.7% suggestive of intrinsic renal disease. Will further workup. - due to ASHLEY, will stop LR and resume with NS - hold all nephrotoxins including toradol - renal U/S ordered - strict I/O - renal diet (14) Chest pain Status: Acute per primary team Qualifiers: Chest pain type: precordial pain Qualified Code(s): R07.2 - Precordial pain Subjective Principal diagnosis: chest pain Interval history: Ms Andres is a 73 yo F. Nephrology is consulted for ASHLEY on CKD. Patient is seen and examined. Patient continues to feel nauseated, and vomiting. Patient denies fever, chills. change in urine patterns. Objective - Vital Signs Vital signs: Vital Signs Temp Pulse Resp BP Pulse Ox 01/31/18 06:43 98.8 F 71 16 148/59 96 01/31/18 05:00 98.8 F 70 16 139/57 100 01/31/18 01:00 99.6 F 75 16 144/57 100 01/30/18 22:00 98.8 F 01/30/18 21:08 100 01/30/18 21:00 97.4 F L 85 16 111/39 100 01/30/18 16:16 101.4 F H 85 16 112/48 100 01/30/18 11:53 98.7 F 82 16 120/53 100 Intake and Output 01/30/18 01/31/18 01/31/18 23:59 07:59 15:59 Intake Total 110 / 110 1058 / 1058 Output Total 500 / 500 Balance 110 / 110 558 / 558 Intake: IV Fluids 110 / 110 1058 / 1058 Heparin 25,000 UNIT/500 ML D5W 110 / 110 58 / 58 25,000 unit In 500 ml @ 12 UNIT /KG/HR 14.184 mls/hr IVC .Q24H [facility] Rx#:[id number] Lactated Ringers 1,000 ML @ 75 1000 / 1000 mls/hr IVC .[id number] [facility] Rx#: [id number] Oral 0 / 0 0 / 0 Output: Urine 500 / 500 Other: # Voids 0 0 Weight 61.5 kg Blood Glucose* 352 299 Patient Weight 01/31/18 23:59 Weight 61.5 kg - General Appearance General appearance: Present: appears started age, moderate distress, fatigue EENT: Present: mucous membranes dry Neck: Present: supple Respiratory: Present: clear Cardiology: Present: regular rate, regular rhythm Gastrointestinal: Present: hypoactive bowel sounds Integumentary: Present: warm and dry Neurologic: Present: alert and oriented x3 Psychiatric: Present: mood/affect appropriate, cooperative - Lab 01/31/18 03:08 01/31/18 03:08 Most recent lab results Calcium 8.1 mg/dL (8.6-10.3) L 01/31/18 03:08 Magnesium 2.0 mg/dL (1.6-2.6) 01/27/18 05:46 Urine Creatinine 73 mg/dL 01/31/18 04:15 - VTE Reasons for not Prescribing Prophylaxis: Medical contraindication (Anemia, Suspected GI Bleed) Documentation of Mechanical Device: Intermittent pneumatic compression device Consult Discharge Plan - Plan Instructions: Heart Failure (DC), Chest Pain (DC), Diabetes Mellitus Type 2 in Adults (DC), Chronic Hypertension (DC), Pneumonia (DC), Joint Replacement Surgery, Manager Intensive Care Unit (GEN) Referrals: Tawana Quintero, PETAL CUTTER [Primary Care Provider] - Pedro Cardoza CNP [Advanced Practice Nurse] - Alfred Gill MD [Partnered Physician] - Prescriptions: Ondansetron ODT [Zofran ODT] 4 mg PO Q6HR 30 Days #6 tab.rapdis <Alfred Gill - Last Filed: 03/02/18 22:17> Date of Encounter: 01/31/18 - Assessment and Plan (1) Acute kidney injury superimposed on CKD Status: Acute (2) CKD (chronic kidney disease) stage 4, GFR 15-29 ml/min Status: Chronic (3) Pneumonia Status: Acute Qualifiers: Pneumonia type: due to unspecified organism Laterality: left Lung location: unspecified part of lung Qualified Code(s): J18.9 - Pneumonia, unspecified organism Objective - Lab 02/21/18 05:23 02/21/18 05:23 Most recent lab results Calcium 8.4 mg/dL (8.6-10.3) L 02/21/18 05:23 Phosphorus 3.4 mg/dL (2.7-4.5) 02/18/18 03:00 Magnesium 1.9 mg/dL (1.6-2.6) 02/06/18 04:56 Urine Creatinine 52 mg/dL 02/03/18 07:25 - Attending Attestation I examined this patient and my medical decision-making was reviewed with the Resident Physician. I agree with the documented findings, disposition and treatment plan as described except to the extent set forth below. Pt seen and examined with rising SCr currently at 3.28 GFR 14. UOP not documented. Encouraged strict I/Os. Will switch LR to NS. Will stop all nephrotoxins if possible especially NSAIDs. UA noted, will check urine eosinophils. Await US of kidney. CPK WNL and uric acid slightly elevated. Suspect ASHLEY/ATN but will wait and monitor severity. No acute indication for LEASING AGENT at this time.
--- NOTE | 2018-01-31 08:50 | Internal Med Progress Note ---
Date of Encounter: 01/31/18 Time of Encounter: 08:50 - Assessment and plan (1) NSTEMI (non-ST elevated myocardial infarction) Current Visit: Yes Status: Acute Assessment and plan: Pt admitted with chest pain and troponins elevated c/w acute NSTEMI. Currently has no symptoms. Renal function has worsened so [facility] on hold Continue heparin drip and monitor H/H. (2) Acute renal failure due to tubular necrosis Current Visit: Yes Status: Suspected Assessment and plan: In reviewing operative record - appears she had some episodes of hypotension in OR (received ephedrine twice). Also has had acute coronary event and received diuretic. Receiving some fluids at this time. Recheck labs in AM. Appreciate nephrology input. (3) Coronary artery disease Current Visit: Yes Status: Chronic Assessment and plan: Chronic issue. Pain free at this time. LHC on hold till renal function improves. Qualifiers: Coronary Disease-Associated Artery/Lesion type: bypass graft [place] vs. transplanted heart: [place] heart Associated angina: without angina Qualified Code(s): I25.810 - Atherosclerosis of coronary artery bypass graft(s) without angina pectoris (4) Type 2 diabetes mellitus with diabetic nephropathy, with long-term current use of insulin Current Visit: Yes Status: Chronic Assessment and plan: Monitoring blood sugars. (5) Essential hypertension Current Visit: Yes Status: Chronic Assessment and plan: Chronic issue. Monitoring. (6) Ventilator associated pneumonia Current Visit: Yes Status: Acute Assessment and plan: Was intubated for OR on 01/25. Continue abx. (7) DVT prophylaxis Current Visit: Yes Status: Acute Assessment and plan: On heparin drip (8) Anemia Current Visit: Yes Status: Chronic Assessment and plan: Multifactorial. H/H stable at this time. Qualifiers: Anemia type: due to chronic kidney disease Chronic kidney disease stage: stage 4 (severe) Qualified Code(s): N18.4 - Chronic kidney disease, stage 4 ( severe); D63.1 - Anemia in chronic kidney disease; D63.1 - Anemia in chronic kidney disease (9) CKD (chronic kidney disease) stage 4, GFR 15-29 ml/min Current Visit: Yes Status: Chronic Assessment and plan: Chronic issue. - Time Spent With Patient Total time spent is greater than 50% in coordination of care (as documented) at patient's floor/unit and/or counseling patient: - Subjective Interval history: Ms Andres is currently admitted for acute NSTEMI and ASHLEY. She remains moderate to high risk due to potential for worsening clinical status. Ms Andres feels very tired and is still nauseous. No fever or chills. No CP. No SOB. Still with some cough. No diarrhea at this time. Pain appears to be controlled. Not moving her shoulder much. - Constitutional Vitals: Temp Pulse Resp BP Pulse Ox 98.8 F 71 16 148/59 96 01/31/18 06:43 01/31/18 06:43 01/31/18 06:43 01/31/18 06:43 01/31/18 06:43 General appearance: Present: cooperative, A&O X 3, pleasant, answers questions appropriately - Head Head exam: Present: normocephalic - Eye Eye exam: Present: conjuntiva pink - ENT ENT exam: Present: mucous membranes dry - Respiratory Respiratory exam: Present: decreased breath sounds, rhonchi. Absent: rales - Cardiovascular Cardiovascular exam: Present: RRR. Absent: tachycardia - GI/Abdominal GI/Abdominal exam: Present: soft. Absent: tenderness - Extremities Exam Extremities exam: Present: tenderness, warm Additional comments: Tenderness R shoulder area - Neurological Exam Neurological exam: Present: alert, oriented X3 - Skin Skin exam: Present: dry, warm Internal Medicine: Result - Labs CBC & Chem 7: 01/31/18 03:08 01/31/18 03:08 Labs: Short CBC 01/30/18 01/31/18 Range/Units 12:05 03:08 WBC 7.1 8.0 (4.3-11.1) K/mcL Hgb 9.5 L 8.9 L (11.5-15.4) g/dL Hct 30.3 L 28.0 L (35.3-44.9) % Plt Count 159 148 (140-400) K/mcL Neutrophils # 6.5 (1.6-8.9) K/mcL BMP 01/31/18 03:08 Sodium 137 Potassium 4.5 Chloride 106 Carbon Dioxide 19 L BUN 51 H Creatinine 3.28 H Glucose 329 H Calcium 8.1 L Urine 01/31/18 Range/Units 04:15 Urine Color Yellow (Yellow) Urine Clarity Cloudy A (Clear) Urine pH 5.5 (5.0-8.0) pH Units Ur Specific Josephine 1.020 (1.010-1.025) Urine Protein 100 H (Neg-Trace) mg/dL Urine Glucose (UA) Normal (Normal) mg/dL - ABG Interpretation ABG results: PT/INR, D-dimer PT 14.1 Seconds (9.4-12.1) H 01/30/18 12:05 - VTE Reasons for not Prescribing Prophylaxis: Medical contraindication (Anemia, Suspected GI Bleed) Documentation of Mechanical Device: Intermittent pneumatic compression device Consult Discharge Plan - Plan Instructions: Heart Failure (DC), Chest Pain (DC), Diabetes Mellitus Type 2 in Adults (DC), Chronic Hypertension (DC), Pneumonia (DC), Joint Replacement Surgery, Fitness Sales Consultant (GEN) Referrals: Tawana Quintero CNP [Primary Care Provider] -
--- NOTE | 2018-01-31 10:31 | Cardiology Progress Note ---
Date of Encounter: 01/31/18 Time of Encounter: 09:15 Assessment and Plan (1) NSTEMI (non-ST elevated myocardial infarction) Current Visit: Yes Status: Acute Concern for NSTEMI. 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 Reported nausea, diaphoresis, SOB. Troponin, 0.03, 0.71, 5.22, 8.76, 8.03 01/25/2018 EKG: HR 108 ST depression in lateral leads with T wave inversion 01/26/2018 EKG: HR 99 ST depression in lateral leads 01/26/2018 EKG: HR 84, NSR non specific ST ,T changes PMH: CABG 2010, LHC 2007, DM, CKD -TTE: LVEF 55%, mild- moderate MR, moderate- severe TR, severe pulmonary hypertension, RVSP 70-75mmHg. Hgb 8.9 stable Cr 3.28 (2.0) worsened Patient denies chest pain, palpitations. No arrhythmias or murmur on exam. Cardiology recommendations: -LHC once renal function improves. Nephrology following -continue heparin -Cardiology will sign off. Please re-consult when renal function is improved. (2) Anemia Current Visit: Yes Status: Chronic Anemia concerning for GI bleed in setting of NSTEMI. Hgb 8.9 stable baseline is 9-10 stool occult positive Last colonoscopy was 35yr ago. She is a patient of Dr. Sharp and is to get an iron transfusion 01/28/2018 and 02/04/2018. Patient is s/p right shoulder arthroscope 01/25/2018. shoulder u/s negative for hematoma 1 PRBC given -01/29/2018 EGD: demonstrated small angiodysplasia in fundus. Biopsies and cauterization. -per discussion with surgery, heparin may be continued and LHC performed Qualifiers: Anemia type: due to chronic kidney disease Chronic kidney disease stage: stage 4 (severe) Qualified Code(s): N18.4 - Chronic kidney disease, stage 4 ( severe); D63.1 - Anemia in chronic kidney disease; D63.1 - Anemia in chronic kidney disease (3) Acute kidney injury superimposed on CKD Current Visit: Yes Status: Acute ASHLEY on CKD. patient of Dr. Sharp. Creatinine worsened 3.28 (2.0) -Renal function must be improved prior to LHC. Nephrology following. Hold lasix. Avoid nephrotoxic agents. (4) Ventilator associated pneumonia Current Visit: Yes Status: Acute B/L pneumonia demonstrated by CXR that is concerning for ventilator associated pneumonia due to recent arthroscope. -currently on cefepime (5) Coronary artery disease Current Visit: Yes Status: Chronic PMH: CABG x3 stent 2010, LHC 2007. Is a patient of Yuan Moreno of cardiology. 12/2016 TTE: EF 60%. Mild- moderate AR, mild MR, moderate-severe pulmonary hypertension. -continue asa, crestor, BB, lasix Qualifiers: Coronary Disease-Associated Artery/Lesion type: bypass graft [place] vs. transplanted heart: [place] heart Associated angina: without angina Qualified Code(s): I25.810 - Atherosclerosis of coronary artery bypass graft(s) without angina pectoris Discussion w patient/family: The assessment and plan as outlined above was discussed with the patient and/or family members who expressed understanding and agreement. All questions were answered. Thank you for involving us in the care of your patient. Please call with any questions. Subjective Principal diagnosis: chest pain Interval history: Patient denies chest pain, palpitations, bleeding, shortness of breath. -Troponin peaked to 8.67 and then trended down to 8.03 -EGD demonstrated small angiodysplasia in fundus. Biopsies and cauterization. -nephrology following due ASHLEY -heparin continued, patient awaiting LHC when renal function improves Objective Vital Signs, Last 4 Hours Temp Pulse Resp BP Pulse Ox 01/31/18 06:43 98.8 F 71 16 148/59 96 General: Conversant, No Apparent Distress HEENT: Atraumatic, Mucus Membranes Moist Neck: No JVD Cardiac: Reg Rate and Rhythm, Normal S1 and S2 Lungs: Normal Breath Sounds, No Wheeze, Rales, Rhonchi Neuro: Alert and responsive Abdomen: Soft, Non-Tender Skin: No rashes noted on visualized skin Musculoskeletal: No Chest Wall Tenderness Extremities: No Cyanosis, Other (b/l ) Results 01/31/18 03:08 01/31/18 03:08 Lab Results 01/30/18 01/30/18 01/30/18 12:05 12:05 20:34 WBC 7.1 Hgb 9.5 L Hct 30.3 L Plt Count 159 INR 1.3 APTT 24.4 L D 54.7 H D Sodium Potassium Chloride Carbon Dioxide BUN Creatinine Glucose Calcium 01/31/18 01/31/18 01/31/18 03:08 03:08 03:08 WBC 8.0 Hgb 8.9 L Hct 28.0 L Plt Count 148 INR APTT 33.2 Sodium 137 Potassium 4.5 Chloride 106 Carbon Dioxide 19 L BUN 51 H Creatinine 3.28 H Glucose 329 H Calcium 8.1 L - VTE Reasons for not Prescribing Prophylaxis: Medical contraindication (Anemia, Suspected GI Bleed) Documentation of Mechanical Device: Intermittent pneumatic compression device Consult Discharge Plan - Plan Instructions: Heart Failure (DC), Chest Pain (DC), Diabetes Mellitus Type 2 in Adults (DC), Chronic Hypertension (DC), Pneumonia (DC), Joint Replacement Surgery, Travel Trailer Components Assembler (GEN) Referrals: Tawana Quintero, HEAT AND FROST INSULATOR HELPER [Primary Care Provider] -
[2018-01-31 13:02] LABS: Uric Acid 8.2 mg/dL (2.3-7.6)
[2018-01-31] MEDS: Heparin 25,000 UNIT/500 ML D5W 25,000 UNIT/500 ML BAG IVC SCH (18:04)
[2018-01-31] MEDS ORDERED: 0.9 % Sodium Chloride 1,000 ML IVC SCH (19:45)
[2018-01-31] MEDS ORDERED: 0.9 % Sodium Chloride 1,000 ML ONE (19:53)
[2018-01-31] MEDS: Acetaminophen 325 MG TABLET PO PRN (21:45)
[2018-02-01] MEDS: Ondansetron 4 MG/2 ML VIAL IVP PRN (00:59)
[2018-02-01 04:33] LABS: Hematocrit 30.9 % (35.3-44.9); Hemoglobin 9.5 g/dL (11.5-15.4); Mean Corpuscular HGB Conc 30.7 g/dL (31.6-35.5); Mean Corpuscular Hemoglobin 30.2 pg (28.0-33.3); Mean Corpuscular Volume 98.1 fL (83.0-100.0); Mean Platelet Volume 11.5 fL (9.4-12.4); Platelet Count 131 K/mcL (140-400); Red Blood Count 3.15 M/mcL (3.82-4.97); Red Cell Distribution Width 14.7 % (11.5-14.5)
[2018-02-01 04:57] LABS: Calcium 7.9 mg/dL (8.6-10.3); Magnesium 1.9 mg/dL (1.6-2.6); Potassium 3.9 mEq/L (3.5-5.1)
[2018-02-01] MEDS: Cefepime HCl 2,000 MG in Water for inj. (sterile) 20 ML 20 ML IVP SCH (06:28)
[2018-02-01] MEDS: Insulin LISPRO 300 UNITS/3 ML VIAL SQ SCH ×5 (06:29→23:06)
--- NOTE | 2018-02-01 07:55 | Nephrology Progress Note ---
<Abdoul Oscarson - Last Filed: 02/01/18 12:06> Date of Encounter: 02/01/18 Time of Encounter: 07:54 - Assessment and Plan (2) Coronary artery disease Status: Chronic per primary team Qualifiers: Coronary Disease-Associated Artery/Lesion type: bypass graft [place] vs. transplanted heart: [place] heart Associated angina: without angina Qualified Code(s): I25.810 - Atherosclerosis of coronary artery bypass graft(s) without angina pectoris (6) Anemia Status: Chronic per primary team, most likely chronic. Qualifiers: Anemia type: due to chronic kidney disease Chronic kidney disease stage: stage 4 (severe) Qualified Code(s): N18.4 - Chronic kidney disease, stage 4 ( severe); D63.1 - Anemia in chronic kidney disease; D63.1 - Anemia in chronic kidney disease (13) Acute kidney injury superimposed on CKD Status: Acute ASHLEY on CKD most likely 2/2 ATN. Sources include hypotension during surgery vs possible sepsis vs medication. Cr on admission 2.0, and continues to increase most likely plateauing. FEUrea 46.7% suggestive of intrinsic renal disease. Urine Eosinophils negative. Will further workup. Discussed with the patient possibility of short term HD, patient is in more agreement today then yesterday. - discussed with primary team to switch back to NS and increase IVF to rate of 1oo/hr - CUBA, C3, C4, P- and C-ANCA, antigbm, Microablumin/Cr - pending - hold all nephrotoxins - strict I/O - renal diet - encouraged PO fluid intake (14) Chest pain Status: Acute per primary team Qualifiers: Chest pain type: precordial pain Qualified Code(s): R07.2 - Precordial pain Subjective Principal diagnosis: chest pain Interval history: Ms Andres is a 73 yo F. Nephrology is consulted for ASHLEY on CKD. Patient is seen and examined. Patient states she is feeling better today and that she is thirsty. Patient continues to feel slightly nauseated. Patient denies fever, chills. Objective - Vital Signs Vital signs: Vital Signs Temp Pulse Resp BP Pulse Ox 02/01/18 06:37 159/66 02/01/18 05:41 98.0 F 84 18 181/72 100 02/01/18 00:52 98.1 F 65 18 151/73 100 01/31/18 22:27 97.7 F 72 16 151/63 100 01/31/18 16:00 98.3 F 75 16 164/63 100 01/31/18 12:15 97.8 F 73 16 142/63 100 Intake and Output 01/31/18 01/31/18 02/01/18 15:59 23:59 07:59 Intake Total 382 / 382 2076 133 / 133 Output Total 0 / 0 200 / 200 Balance 382 / 382 2076 -67 / -67 Intake: IV Fluids 182 / 182 1177 / 1177 133 / 133 Heparin 25,000 UNIT/500 ML D5W 182 / 182 177 / 177 133 / 133 25,000 unit In 500 ml @ 12 UNIT /KG/HR 14.184 mls/hr IVC .Q24H [facility] Rx#:[id number] Lactated Ringers 1,000 ML @ 75 1000 / 1000 mls/hr IVC .[id number] [facility] Rx#: [id number] Oral 200 / 200 900 / 900 0 / 0 Output: Urine 0 / 0 200 / 200 Other: Meal Breakfast Dinner Percent of Meal Consumed 0% 0% Stool Size Moderate Stool Consistency liquid Stool Color Yellow Green # Voids 0 0 Weight 62.5 kg Blood Glucose* 233 322 Patient Weight 02/01/18 23:59 Weight 62.5 kg - General Appearance General appearance: Present: appears started age Neck: Present: supple Respiratory: Present: clear Cardiology: Present: no edema, regular rate, regular rhythm Gastrointestinal: Present: hypoactive bowel sounds Integumentary: Present: warm and dry Neurologic: Present: alert and oriented x3 Psychiatric: Present: mood/affect appropriate, cooperative - Lab 02/01/18 04:21 02/01/18 04:21 Most recent lab results Calcium 7.9 mg/dL (8.6-10.3) L 02/01/18 04:21 Magnesium 1.9 mg/dL (1.6-2.6) 02/01/18 04:21 Urine Creatinine 73 mg/dL 01/31/18 04:15 - VTE Reasons for not Prescribing Prophylaxis: Medical contraindication (Anemia, Suspected GI Bleed) Documentation of Mechanical Device: Intermittent pneumatic compression device Consult Discharge Plan - Plan Instructions: Heart Failure (DC), Chest Pain (DC), Diabetes Mellitus Type 2 in Adults (DC), Chronic Hypertension (DC), Pneumonia (DC), Joint Replacement Surgery, Highway Inspector (GEN) Referrals: Tawana Quintero CNP [Primary Care Provider] - Pedro Cardoza CNP [Advanced Practice Nurse] - Alfred Gill MD [Partnered Physician] - Prescriptions: Ondansetron ODT [Zofran ODT] 4 mg PO Q6HR 30 Days #6 tab.rapdis <Alfred Gill - Last Filed: 03/02/18 22:22> Date of Encounter: 02/01/18 - Assessment and Plan (1) Acute kidney injury superimposed on CKD Status: Acute (2) CKD (chronic kidney disease) stage 4, GFR 15-29 ml/min Status: Chronic (3) Pneumonia Status: Acute Qualifiers: Pneumonia type: due to unspecified organism Laterality: left Lung location: unspecified part of lung Qualified Code(s): J18.9 - Pneumonia, unspecified organism Objective - Lab 02/21/18 05:23 02/21/18 05:23 Most recent lab results Calcium 8.4 mg/dL (8.6-10.3) L 02/21/18 05:23 Phosphorus 3.4 mg/dL (2.7-4.5) 02/18/18 03:00 Magnesium 1.9 mg/dL (1.6-2.6) 02/06/18 04:56 Urine Creatinine 52 mg/dL 02/03/18 07:25 - Attending Attestation I examined this patient and my medical decision-making was reviewed with the Resident Physician. I agree with the documented findings, disposition and treatment plan as described except to the extent set forth below. Pt seen and examined with continued worsening renal fxn with SCr at 4.24, GFR 10. Etiology of ASHLEY/ATN likely multifactorial with periop hypotension, possible sepsis and medication induced. Urine eosinophil negative. Will increase NS at 100cc/hr. Continue to avoid nephrotoxins if possible. Discussed at great length the possibility of LIFT DRIVER during this hospital stay but not today, pt is reluctanat about this but open.
[2018-02-01] MEDS ORDERED: Sodium Bicarbonate 150 MEQ in D5% in Water 1,000 ML IVC SCH (09:15)
--- NOTE | 2018-02-01 09:52 | Internal Med Progress Note ---
Date of Encounter: 02/01/18 Time of Encounter: 09:48 - Assessment and plan (1) Edema of upper extremity Current Visit: Yes Status: Acute Assessment and plan: Check venous duplex. (2) Acute renal failure due to tubular necrosis Current Visit: Yes Status: Suspected Assessment and plan: Worsened creatinine today. Fluids changed to bicarb drip. Renal following and appreciated. (3) NSTEMI (non-ST elevated myocardial infarction) Current Visit: Yes Status: Acute Assessment and plan: Pt admitted with chest pain and troponins elevated c/w acute NSTEMI. Remains asymptomatic at this time. Remains on heparin. Continue supportive care. Will check with card regarding heparin. (4) Coronary artery disease Current Visit: Yes Status: Chronic Assessment and plan: Chronic issue. Pain free at this time. C on hold till renal function improves. Qualifiers: Coronary Disease-Associated Artery/Lesion type: bypass graft [place] vs. transplanted heart: [place] heart Associated angina: without angina Qualified Code(s): I25.810 - Atherosclerosis of coronary artery bypass graft(s) without angina pectoris (5) Type 2 diabetes mellitus with diabetic nephropathy, with long-term current use of insulin Current Visit: Yes Status: Chronic Assessment and plan: Monitoring blood sugars. She is very labile at home. Continue same management for now. (6) Essential hypertension Current Visit: Yes Status: Chronic Assessment and plan: Chronic issue. Monitoring. (7) Ventilator associated pneumonia Current Visit: Yes Status: Acute Assessment and plan: Clinically improving. Complete course abx. (8) Anemia Current Visit: Yes Status: Chronic Assessment and plan: Multifactorial. H/H stable at this time. Qualifiers: Anemia type: due to chronic kidney disease Chronic kidney disease stage: stage 4 (severe) Qualified Code(s): N18.4 - Chronic kidney disease, stage 4 ( severe); D63.1 - Anemia in chronic kidney disease; D63.1 - Anemia in chronic kidney disease (9) CKD (chronic kidney disease) stage 4, GFR 15-29 ml/min Current Visit: Yes Status: Chronic Assessment and plan: Chronic issue. (10) DVT prophylaxis Current Visit: Yes Status: Acute Assessment and plan: On heparin drip - Time Spent With Patient Total time spent is greater than 50% in coordination of care (as documented) at patient's floor/unit and/or counseling patient: - Subjective Interval history: Ms Andres is currently admitted for acute NSTEMI and ASHLEY. She remains moderate to high risk due to potential for worsening clinical status. Ms Andres is very tired. Less nauseous today. Eating breakfast. Renal function has worsened but she is making urine. No CP or SOB. LUE is edematous today. OT worked with [facility]. - Constitutional Vitals: Temp Pulse Resp BP Pulse Ox 98.6 F 71 16 146/57 100 02/01/18 07:53 02/01/18 07:53 02/01/18 07:53 02/01/18 07:53 02/01/18 07:53 General appearance: Present: cooperative, A&O X 3, pleasant, answers questions appropriately - Head Head exam: Present: normocephalic - Eye Eye exam: Present: EOMI, conjuntiva pink - ENT ENT exam: Present: mucous membranes dry - Respiratory Respiratory exam: Present: CTAB. Absent: rales, rhonchi, wheezes - Cardiovascular Cardiovascular exam: Present: RRR. Absent: tachycardia - GI/Abdominal GI/Abdominal exam: Present: soft. Absent: tenderness - Extremities Exam Extremities exam: Present: warm Additional comments: LUE with nonpitting edema. IV in place. RUE no edema. - Neurological Exam Neurological exam: Present: alert, oriented X3 - Skin Skin exam: Present: dry, warm Additional comments: Ecchymoses present Internal Medicine: Result - Labs CBC & Chem 7: 02/01/18 04:21 02/01/18 04:21 Labs: Short CBC 02/01/18 Range/Units 04:21 WBC 7.2 (4.3-11.1) K/mcL Hgb 9.5 L (11.5-15.4) g/dL Hct 30.9 L (35.3-44.9) % Plt Count 131 L (140-400) K/mcL BMP 02/01/18 04:21 Sodium 135 L Potassium 3.9 Chloride 107 Carbon Dioxide 18 L BUN 53 H Creatinine 4.24 H Glucose 294 H Calcium 7.9 L - ABG Interpretation ABG results: PT/INR, D-dimer PT 14.1 Seconds (9.4-12.1) H 01/30/18 12:05 - Impressions Impressions Retroperitoneum Ultrasound 01/31/18 10:30 IMPRESSION: 1. No hydronephrosis. 2. Incomplete bladder emptying. D/ / Ese Fuentes MD / Ese Fuentes MD Interpreting Provider: Ese Fuentes MD - VTE Reasons for not Prescribing Prophylaxis: Medical contraindication (Anemia, Suspected GI Bleed) Documentation of Mechanical Device: Intermittent pneumatic compression device Consult Discharge Plan - Plan Instructions: Heart Failure (DC), Chest Pain (DC), Diabetes Mellitus Type 2 in Adults (DC), Chronic Hypertension (DC), Pneumonia (DC), Joint Replacement Surgery, Desktop Publishing Operator (GEN) Referrals: Tawana Quintero, FIELD CLINICAL ENGINEER [Primary Care Provider] -
[2018-02-01] MEDS: Cholecalciferol (D-3) 1,000 UNIT TABLET PO SCH (10:22)
[2018-02-01] MEDS: Famotidine 20 MG TABLET PO SCH ×2 (10:22→23:09)
[2018-02-01] MEDS: Aspirin 81 MG TAB.CHEW PO SCH (10:24)
[2018-02-01] MEDS: *HR* Heparin 5,000 UNIT/ML VIAL SQ SCH (17:40)
[2018-02-01] MEDS: Insulin NPH/REG 70/30 100 UNIT/ML (x5UNIT) SQ SCH (17:43)
[2018-02-01] MEDS: 0.9 % Sodium Chloride 1,000 ML IVC SCH (17:43)
[2018-02-02] MEDS: Ondansetron 4 MG/2 ML VIAL IVP PRN ×2 (04:08→08:14)
[2018-02-02] MEDS: Acetaminophen 325 MG TABLET PO PRN (04:26)
[2018-02-02] MEDS: 0.9 % Sodium Chloride 1,000 ML IVC SCH ×2 (04:52→18:30)
[2018-02-02 04:57] LABS: Hematocrit 29.7 % (35.3-44.9); Hemoglobin 9.5 g/dL (11.5-15.4); Mean Corpuscular Hemoglobin 30.3 pg (28.0-33.3); Mean Corpuscular Volume 94.6 fL (83.0-100.0); Mean Platelet Volume 11.6 fL (9.4-12.4); Platelet Count 133 K/mcL (140-400); Red Blood Count 3.14 M/mcL (3.82-4.97); Red Cell Distribution Width 14.3 % (11.5-14.5)
[2018-02-02 05:10] LABS: Calcium 7.6 mg/dL (8.6-10.3); Potassium 3.8 mEq/L (3.5-5.1)
[2018-02-02] MEDS: *HR* Heparin 5,000 UNIT/ML VIAL SQ SCH ×2 (06:54→17:32)
[2018-02-02] MEDS: Aspirin 81 MG TAB.CHEW PO SCH (08:06)
[2018-02-02] MEDS: Cholecalciferol (D-3) 1,000 UNIT TABLET PO SCH (08:07)
[2018-02-02] MEDS: Famotidine 20 MG TABLET PO SCH ×2 (08:10→23:24)
[2018-02-02] MEDS: OXYCODONE Oral CONC 10 MG/0.5 ML ORAL.SYG SL PRN (08:14)
--- NOTE | 2018-02-02 08:33 | Nephrology Progress Note ---
<CelestinaAnastacio - Last Filed: 02/02/18 14:22> Date of Encounter: 02/02/18 Time of Encounter: 08:33 - Assessment and Plan (2) Coronary artery disease Status: Chronic per primary team Qualifiers: Coronary Disease-Associated Artery/Lesion type: bypass graft [place] vs. transplanted heart: [place] heart Associated angina: without angina Qualified Code(s): I25.810 - Atherosclerosis of coronary artery bypass graft(s) without angina pectoris (6) Anemia Status: Chronic per primary team, most likely chronic. Qualifiers: Anemia type: due to chronic kidney disease Chronic kidney disease stage: stage 4 (severe) Qualified Code(s): N18.4 - Chronic kidney disease, stage 4 ( severe); D63.1 - Anemia in chronic kidney disease; D63.1 - Anemia in chronic kidney disease (13) Acute kidney injury superimposed on CKD Status: Acute ASHLEY on CKD most likely 2/2 ATN. Sources include hypotension during surgery vs possible sepsis vs medication. Cr on admission 2.0. Cr had mild worsening today. But urine output remains good, non-oliguric. Patient remains thirsty today. FEUrea 46.7% suggestive of intrinsic renal disease. Urine Eosinophils negative. Further workup pending in lab. FISH BAILER not recommended at this time. - CUBA, C3, C4, P- and C-ANCA, antigbm, Microablumin/Cr - pending - hold all nephrotoxins - strict I/O - renal diet - encouraged PO fluid intake, and continue IVF (14) Chest pain Status: Acute per primary team Qualifiers: Chest pain type: precordial pain Qualified Code(s): R07.2 - Precordial pain Subjective Principal diagnosis: chest pain Interval history: Ms Andres is a 73 yo F. Nephrology is consulted for ASHLEY on CKD. Patient is seen and examined. Patient states she is feeling ok today. Patient denies fever, chills. Patient re-seen at 1:30 PM. Patient repeated multiples "feeling better". Patient appeared confused. This was discussed with primary team. Patient had just received phenergen. Objective - Vital Signs Vital signs: Vital Signs Temp Pulse Resp BP Pulse Ox 02/02/18 07:33 97.5 F L 80 15 174/96 100 02/02/18 04:43 97.5 F L 78 18 137/48 100 02/01/18 22:05 97.4 F L 77 18 143/59 100 02/01/18 15:24 99.8 F H 84 16 132/51 100 02/01/18 11:22 98.6 F 78 16 142/63 100 Intake and Output 02/01/18 02/02/18 02/02/18 23:59 07:59 15:59 Intake Total 50 / 50 1000 / 1000 Output Total 400 / 400 Balance 50 / 50 600 / 600 Intake: IV Fluids 1000 / 1000 0.9 % Sodium Chloride 1,000 ML 1000 / 1000 @ 100 mls/hr IVC .Q10H [facility] Rx#: [id number] Oral 50 / 50 0 / 0 Output: Urine 400 / 400 Other: Meal Dinner Percent of Meal Consumed 50% # Voids 0 0 Weight 68.5 kg Blood Glucose* 389 371 Patient Weight 02/02/18 23:59 Weight 68.5 kg - General Appearance General appearance: Present: fatigue, frail Exam: pale appearing. Patient on second encounter, appeared confused. Neck: Present: supple Respiratory: Present: clear Cardiology: Present: no edema, regular rate, regular rhythm Gastrointestinal: Present: hypoactive bowel sounds, no tenderness, no guarding Integumentary: Present: warm and dry Neurologic: Present: confused - Lab 02/02/18 04:24 02/02/18 04:24 Most recent lab results Calcium 7.6 mg/dL (8.6-10.3) L 02/02/18 04:24 Magnesium 1.9 mg/dL (1.6-2.6) 02/01/18 04:21 Urine Creatinine 73 mg/dL 01/31/18 04:15 - VTE Reasons for not Prescribing Prophylaxis: Medical contraindication (Anemia, Suspected GI Bleed) Documentation of Mechanical Device: Intermittent pneumatic compression device Consult Discharge Plan - Plan Instructions: Heart Failure (DC), Chest Pain (DC), Diabetes Mellitus Type 2 in Adults (DC), Chronic Hypertension (DC), Pneumonia (DC), Joint Replacement Surgery, Lithopone Charger (GEN) Referrals: Tawana Quintero UNIX CONSULTANT [Primary Care Provider] - Pedro Cardoza CNP [Advanced Practice Nurse] - Alfred Gill MD [Partnered Physician] - Prescriptions: Ondansetron ODT [Zofran ODT] 4 mg PO Q6HR 30 Days #6 tab.rapdis <Alfred Gill - Last Filed: 03/02/18 23:28> Date of Encounter: 02/02/18 - Assessment and Plan (1) Acute kidney injury superimposed on CKD Status: Acute (2) CKD (chronic kidney disease) stage 4, GFR 15-29 ml/min Status: Chronic (3) Pneumonia Status: Acute Qualifiers: Pneumonia type: due to unspecified organism Laterality: left Lung location: unspecified part of lung Qualified Code(s): J18.9 - Pneumonia, unspecified organism Objective - Lab 02/21/18 05:23 02/21/18 05:23 Most recent lab results Calcium 8.4 mg/dL (8.6-10.3) L 02/21/18 05:23 Phosphorus 3.4 mg/dL (2.7-4.5) 02/18/18 03:00 Magnesium 1.9 mg/dL (1.6-2.6) 02/06/18 04:56 Urine Creatinine 52 mg/dL 02/03/18 07:25 - Attending Attestation I examined this patient and my medical decision-making was reviewed with the Resident Physician. I agree with the documented findings, disposition and treatment plan as described except to the extent set forth below. Pt seen and examined appearing disoriented after being given phernegan, discussed with primary team. SCr still worsening at 4.52, GFR 10 but UOP good. No acute indication for FISH BAILER today but will monitor daily for need. Continue fluids. Continue to avoid nephrotoxins.
[2018-02-02] MEDS ORDERED: Cefepime HCl 1,000 MG in Water for inj. (sterile) 10 ML IVP SCH (09:00)
[2018-02-02] MEDS ORDERED: *HR* Promethazine 25 MG/ML VIAL IVP PRN (09:10)
[2018-02-02] MEDS ORDERED: 0.9 % Sodium Chloride 1,000 ML IVC SCH (09:11)
[2018-02-02] MEDS: Insulin LISPRO 300 UNITS/3 ML VIAL SQ SCH ×4 (09:11→23:25)
--- NOTE | 2018-02-02 09:17 | Internal Med Progress Note ---
Date of Encounter: 02/02/18 Time of Encounter: 09:16 - Assessment and plan (1) Nausea & vomiting Current Visit: Yes Status: Acute Qualifiers: Vomiting type: unspecified Vomiting Intractability: intractable Qualified Code(s): R11.2 - Nausea with vomiting, unspecified (2) Acute renal failure due to tubular necrosis Current Visit: Yes Status: Suspected Assessment and plan: Creatinine just slightly worse. May be plateauing. Fluids running. Other management per renal service. (3) Edema of upper extremity Current Visit: Yes Status: Acute Assessment and plan: Venous duplex negative for DVT. Monitoring at this time. (4) NSTEMI (non-ST elevated myocardial infarction) Current Visit: Yes Status: Acute Assessment and plan: Pt admitted with chest pain and troponins elevated c/w acute NSTEMI. Continues to be asymptomatic though is persistently nauseated. Heparin stopped yesterday. (5) Coronary artery disease Current Visit: Yes Status: Chronic Assessment and plan: Chronic issue. Plan LHC when renal status improves. Qualifiers: Coronary Disease-Associated Artery/Lesion type: bypass graft [place] vs. transplanted heart: [place] heart Associated angina: without angina Qualified Code(s): I25.810 - Atherosclerosis of coronary artery bypass graft(s) without angina pectoris (6) Type 2 diabetes mellitus with diabetic nephropathy, with long-term current use of insulin Current Visit: Yes Status: Chronic Assessment and plan: Monitoring blood sugars. Blood sugar high today. Treating with home insulin and some coverage at times. (7) Essential hypertension Current Visit: Yes Status: Chronic Assessment and plan: Chronic issue. Monitoring. Was higher this AM prior to meds. May need to adjust meds if continues to be high. (8) Ventilator associated pneumonia Current Visit: Yes Status: Acute Assessment and plan: Clinically improving. Will complete 7 days of abx. (9) Anemia Current Visit: Yes Status: Chronic Assessment and plan: Multifactorial. H/H stable at this time. Qualifiers: Anemia type: due to chronic kidney disease Chronic kidney disease stage: stage 4 (severe) Qualified Code(s): N18.4 - Chronic kidney disease, stage 4 ( severe); D63.1 - Anemia in chronic kidney disease; D63.1 - Anemia in chronic kidney disease (10) CKD (chronic kidney disease) stage 4, GFR 15-29 ml/min Current Visit: Yes Status: Chronic Assessment and plan: Chronic issue. (11) DVT prophylaxis Current Visit: Yes Status: Acute Assessment and plan: On heparin subqu. - Time Spent With Patient Total time spent is greater than 50% in coordination of care (as documented) at patient's floor/unit and/or counseling patient: - Subjective Interval history: Ms Andres is currently admitted for acute NSTEMI and ASHLEY. She remains moderate to high risk due to potential for worsening clinical status. Ms Andres is really nauseated today. No fever or chills noted at this time. Denies abdominal pain but has low back pain. No CP or SOB at this time. Urinating some. - Constitutional Vitals: Temp Pulse Resp BP Pulse Ox 97.5 F L 80 15 174/96 100 02/02/18 07:33 02/02/18 07:33 02/02/18 07:33 02/02/18 07:33 02/02/18 08:35 General appearance: Present: cooperative, A&O X 3, pleasant, answers questions appropriately Exam: Distressed from nausea. - Head Head exam: Present: normocephalic - Eye Eye exam: Present: conjuntiva pink - ENT ENT exam: Present: mucous membranes dry - Respiratory Respiratory exam: Present: decreased breath sounds. Absent: rales, rhonchi, wheezes - Cardiovascular Cardiovascular exam: Present: RRR. Absent: tachycardia - GI/Abdominal GI/Abdominal exam: Present: soft. Absent: tenderness - Extremities Exam Extremities exam: Present: warm - Neurological Exam Neurological exam: Present: alert, oriented X3 - Skin Skin exam: Present: dry, warm Internal Medicine: Result - Labs CBC & Chem 7: 02/02/18 04:24 02/02/18 04:24 Labs: Short CBC 02/02/18 Range/Units 04:24 WBC 6.8 (4.3-11.1) K/mcL Hgb 9.5 L (11.5-15.4) g/dL Hct 29.7 L (35.3-44.9) % Plt Count 133 L (140-400) K/mcL BMP 02/02/18 04:24 Sodium 133 L Potassium 3.8 Chloride 105 Carbon Dioxide 19 L BUN 59 H Creatinine 4.52 H Glucose 363 H Calcium 7.6 L - ABG Interpretation ABG results: PT/INR, D-dimer PT 14.1 Seconds (9.4-12.1) H 01/30/18 12:05 - VTE Reasons for not Prescribing Prophylaxis: Medical contraindication (Anemia, Suspected GI Bleed) Documentation of Mechanical Device: Intermittent pneumatic compression device Consult Discharge Plan - Plan Instructions: Heart Failure (DC), Chest Pain (DC), Diabetes Mellitus Type 2 in Adults (DC), Chronic Hypertension (DC), Pneumonia (DC), Joint Replacement Surgery, Exposure Machine Operator (GEN) Referrals: Tawana Quintero, LAY OUT WORKER [Primary Care Provider] -
[2018-02-02] MEDS: Insulin NPH/REG 70/30 100 UNIT/ML (x5UNIT) SQ SCH ×3 (09:34→18:16)
[2018-02-02] MEDS: Cefepime HCl 1,000 MG in Water for inj. (sterile) 20 ML 10 ML IVP SCH (09:55)
[2018-02-03] MEDS: 0.9 % Sodium Chloride 1,000 ML IVC SCH (05:30)
[2018-02-03] MEDS: *HR* Heparin 5,000 UNIT/ML VIAL SQ SCH ×2 (06:49→16:41)
[2018-02-03 07:32] LABS: Calcium 7.3 mg/dL (8.6-10.3); Potassium 3.7 mEq/L (3.5-5.1)
[2018-02-03 07:38] LABS: Hematocrit 26.8 % (35.3-44.9); Hemoglobin 8.6 g/dL (11.5-15.4); Mean Corpuscular HGB Conc 32.1 g/dL (31.6-35.5); Mean Corpuscular Hemoglobin 30.6 pg (28.0-33.3); Mean Corpuscular Volume 95.4 fL (83.0-100.0); Mean Platelet Volume 11.8 fL (9.4-12.4); Platelet Count 124 K/mcL (140-400); Red Blood Count 2.81 M/mcL (3.82-4.97); Red Cell Distribution Width 14.3 % (11.5-14.5)
[2018-02-03 08:19] LABS: Creatinine,Urine 52 mg/dL; Microalbum/Creatinine Ratio,Ur 269 mcg/mg (Less than 30); Microalbumin,Urine 140 mg/L
--- NOTE | 2018-02-03 09:15 | Nephrology Progress Note ---
Date of Encounter: 02/03/18 Time of Encounter: 09:11 - Assessment and Plan (1) Acute kidney injury superimposed on CKD Current Visit: Yes Status: Acute Although Cr continues to worsen today, Cr is most likely plateauing at this point, will reevaluate tomorrow for HAT LACER. At this point HAT LACER is not needed. Dr. Reveles discussed this with the primary team. Patient is slighty hypervolumic and fluids can be backed off at this time. Patient continues to be non- oliguric with good urine output. - D/C fluids at this point - continue to increase PO fluid intake - CUBA, C3, C4, GBM, ANCA - pending (2) Anemia Current Visit: Yes Status: Chronic per primary team, most likely chronic. Qualifiers: Anemia type: due to chronic kidney disease Chronic kidney disease stage: stage 4 (severe) Qualified Code(s): N18.4 - Chronic kidney disease, stage 4 ( severe); D63.1 - Anemia in chronic kidney disease; D63.1 - Anemia in chronic kidney disease (3) Chest pain Current Visit: Yes Status: Acute per primary team Qualifiers: Chest pain type: precordial pain Qualified Code(s): R07.2 - Precordial pain (4) Coronary artery disease Current Visit: Yes Status: Chronic per primary team Qualifiers: Coronary Disease-Associated Artery/Lesion type: bypass graft [place] vs. transplanted heart: [place] heart Associated angina: without angina Qualified Code(s): I25.810 - Atherosclerosis of coronary artery bypass graft(s) without angina pectoris Subjective Principal diagnosis: chest pain Interval history: Patient seen and examined sitting in chair eating breakfast. Overnight team was concerned for change in mentation and ordered a CT scan of the head. Today patient states that she is trying to eat but keeps dropping her utensils while eating. She denies any weakness/numbness/tingling in her arms. She denies feeling confused like she did yesterday. She does feel hungry and thirsty. She denies chest pain, or SOB. She thinks she's a little more swollen then yesterday. Objective - Vital Signs Vital signs: Vital Signs Temp Pulse Resp BP Pulse Ox 02/03/18 07:18 98.0 F 82 17 163/63 99 02/03/18 05:56 98.2 F 78 18 140/65 97 02/02/18 23:51 98.3 F 79 20 135/58 92 02/02/18 20:59 98.3 F 85 18 135/52 99 02/02/18 16:00 98.1 F 74 16 133/57 100 02/02/18 11:46 97.9 F 73 20 151/63 100 Intake and Output 02/02/18 02/03/18 02/03/18 23:59 07:59 15:59 Intake Total 0 / 0 1000 / 1000 120 / 120 Output Total 200 / 200 400 / 400 Balance -200 / -200 600 / 600 120 / 120 Intake: IV Fluids 1000 / 1000 0.9 % Sodium Chloride 1,000 ML 1000 / 1000 @ 100 mls/hr IVC .Q10H [facility] Rx#: [id number] Oral 0 / 0 0 / 0 120 / 120 Output: Urine 200 / 200 400 / 400 Other: Meal Lunch Breakfast Percent of Meal Consumed 0% 5% Stool Size Smear Stool Consistency soft Stool Color Brown # Voids 0 0 # Bowel Movements 1 Weight 70.5 kg Blood Glucose* 187 186 Patient Weight 02/03/18 23:59 Weight 70.5 kg - General Appearance General appearance: Present: appears started age, fatigue, frail EENT: Present: mucous membranes moist Neck: Present: supple Respiratory: Present: clear Cardiology: Present: edema (1+ BLE), regular rate, regular rhythm Gastrointestinal: Present: hypoactive bowel sounds, no tenderness, no guarding Integumentary: Present: warm and dry Neurologic: Present: alert and oriented x3 Psychiatric: Present: mood/affect appropriate, cooperative - Lab 02/03/18 04:00 02/03/18 04:00 Most recent lab results Calcium 7.3 mg/dL (8.6-10.3) L 02/03/18 04:00 Magnesium 1.9 mg/dL (1.6-2.6) 02/01/18 04:21 Urine Creatinine 52 mg/dL 02/03/18 07:25 - VTE Reasons for not Prescribing Prophylaxis: Medical contraindication (Anemia, Suspected GI Bleed) Documentation of Mechanical Device: Intermittent pneumatic compression device Consult Discharge Plan - Plan Instructions: Heart Failure (DC), Chest Pain (DC), Diabetes Mellitus Type 2 in Adults (DC), Chronic Hypertension (DC), Pneumonia (DC), Joint Replacement Surgery, Forestry Aide (GEN) Referrals: Tawana Quintero, COMB SETTER [Primary Care Provider] -
[2018-02-03] MEDS: Famotidine 20 MG TABLET PO SCH ×2 (09:58→21:32)
[2018-02-03] MEDS: Cholecalciferol (D-3) 1,000 UNIT TABLET PO SCH (09:59)
[2018-02-03] MEDS: Aspirin 81 MG TAB.CHEW PO SCH (09:59)
[2018-02-03] MEDS: Cefepime HCl 1,000 MG in Water for inj. (sterile) 20 ML 10 ML IVP SCH (10:00)
[2018-02-03] MEDS: Insulin NPH/REG 70/30 100 UNIT/ML (x5UNIT) SQ SCH ×2 (10:00→16:44)
[2018-02-03] MEDS: Insulin LISPRO 300 UNITS/3 ML VIAL SQ SCH ×4 (10:01→21:32)
[2018-02-03 14:57] LABS: ANA IgG by ELISA NONE DETECTED (None Detected); Complement Component 3 111 mg/dL (88-201); Complement Component 4 47 mg/dL (10-40)
--- NOTE | 2018-02-03 18:26 | Internal Med Progress Note ---
Date of Encounter: 02/03/18 Time of Encounter: 08:30 - Assessment and plan (1) Nausea & vomiting Current Visit: Yes Status: Acute Assessment and plan: Continue PRN Zofran. No Phenergan as she had poor reaction. Qualifiers: Vomiting type: unspecified Vomiting Intractability: intractable Qualified Code(s): R11.2 - Nausea with vomiting, unspecified (2) Acute renal failure due to tubular necrosis Current Visit: Yes Status: Suspected Assessment and plan: Appreciate renal input. Hopefully is plateauing. (3) Edema of upper extremity Current Visit: Yes Status: Acute Assessment and plan: Venous duplex negative for DVT. Monitoring at this time. No new issues. (4) NSTEMI (non-ST elevated myocardial infarction) Current Visit: Yes Status: Acute Assessment and plan: Pt admitted with chest pain and troponins elevated c/w acute NSTEMI. Remains asymptomatic. (5) Coronary artery disease Current Visit: Yes Status: Chronic Assessment and plan: Chronic issue. Plan LHC when renal status improves. Qualifiers: Coronary Disease-Associated Artery/Lesion type: bypass graft [place] vs. transplanted heart: [place] heart Associated angina: without angina Qualified Code(s): I25.810 - Atherosclerosis of coronary artery bypass graft(s) without angina pectoris (6) Type 2 diabetes mellitus with diabetic nephropathy, with long-term current use of insulin Current Visit: Yes Status: Chronic Assessment and plan: Monitoring blood sugars. She has a history of labile sugars. Will continue home insulin with some coverage if needed. (7) Essential hypertension Current Visit: Yes Status: Chronic Assessment and plan: Chronic issue. Remains high. Will consider med adjustment. (8) Ventilator associated pneumonia Current Visit: Yes Status: Acute Assessment and plan: Clinically improving. Abx to complete tomorrow. (9) Anemia Current Visit: Yes Status: Chronic Assessment and plan: Multifactorial. H/H stable at this time. Qualifiers: Anemia type: due to chronic kidney disease Chronic kidney disease stage: stage 4 (severe) Qualified Code(s): N18.4 - Chronic kidney disease, stage 4 ( severe); D63.1 - Anemia in chronic kidney disease; D63.1 - Anemia in chronic kidney disease (10) CKD (chronic kidney disease) stage 4, GFR 15-29 ml/min Current Visit: Yes Status: Chronic Assessment and plan: Chronic issue. (11) DVT prophylaxis Current Visit: Yes Status: Acute Assessment and plan: On heparin subqu. - Time Spent With Patient Total time spent is greater than 50% in coordination of care (as documented) at patient's floor/unit and/or counseling patient: - Subjective Interval history: Ms Andres is currently admitted for acute NSTEMI and ASHLEY. She remains moderate to high risk due to potential for worsening clinical status. Ms Andres is tired. She is not as weak as yesterday after the Phenergan. Still having some "jerking" movements. No fever or chills. No CP or SOB. No abd pain but still has some nausea. - Constitutional Vitals: Temp Pulse Resp BP Pulse Ox 98.1 F 86 15 165/79 100 02/03/18 16:07 02/03/18 16:07 02/03/18 16:07 02/03/18 16:07 02/03/18 16:07 General appearance: Present: cooperative, A&O X 3, pleasant, answers questions appropriately - Head Head exam: Present: normocephalic - Eye Eye exam: Present: conjuntiva pink - ENT ENT exam: Present: mucous membranes dry - Respiratory Respiratory exam: Present: decreased breath sounds. Absent: rales, rhonchi, wheezes - Cardiovascular Cardiovascular exam: Present: RRR. Absent: tachycardia - GI/Abdominal GI/Abdominal exam: Present: soft. Absent: tenderness - Extremities Exam Extremities exam: Present: warm. Absent: tenderness - Neurological Exam Neurological exam: Present: alert, oriented X3 - Skin Skin exam: Present: dry, warm Internal Medicine: Result - Labs CBC & Chem 7: 02/03/18 04:00 02/03/18 04:00 Labs: Short CBC 02/03/18 Range/Units 04:00 WBC 5.4 (4.3-11.1) K/mcL Hgb 8.6 L (11.5-15.4) g/dL Hct 26.8 L (35.3-44.9) % Plt Count 124 L (140-400) K/mcL BMP 02/03/18 04:00 Sodium 140 Potassium 3.7 Chloride 108 H Carbon Dioxide 22 L BUN 58 H Creatinine 5.00 H Glucose 195 H Calcium 7.3 L Cardiac Enzymes 02/02/18 Range/Units 19:25 Troponin I 0.75 H* (< 0.04) ng/mL - ABG Interpretation ABG results: PT/INR, D-dimer PT 14.1 Seconds (9.4-12.1) H 01/30/18 12:05 - VTE Reasons for not Prescribing Prophylaxis: Medical contraindication (Anemia, Suspected GI Bleed) Documentation of Mechanical Device: Intermittent pneumatic compression device Consult Discharge Plan - Plan Instructions: Heart Failure (DC), Chest Pain (DC), Diabetes Mellitus Type 2 in Adults (DC), Chronic Hypertension (DC), Pneumonia (DC), Joint Replacement Surgery, Singing Teacher (GEN) Referrals: Tawana Quintero, SILK CREPE MACHINE OPERATOR [Primary Care Provider] -
[2018-02-04] MEDS: *HR* Heparin 5,000 UNIT/ML VIAL SQ SCH ×2 (05:32→18:13)
[2018-02-04 06:07] LABS: Hematocrit 28.1 % (35.3-44.9); Mean Corpuscular Hemoglobin 30.4 pg (28.0-33.3); Mean Corpuscular Volume 94.9 fL (83.0-100.0); Mean Platelet Volume 12.1 fL (9.4-12.4); Platelet Count 145 K/mcL (140-400); Red Blood Count 2.96 M/mcL (3.82-4.97); Red Cell Distribution Width 14.6 % (11.5-14.5)
[2018-02-04 06:21] LABS: Calcium 7.6 mg/dL (8.6-10.3); Potassium 4.1 mEq/L (3.5-5.1)
[2018-02-04] MEDS: Insulin LISPRO 300 UNITS/3 ML VIAL SQ SCH ×4 (09:49→22:09)
[2018-02-04] MEDS: Insulin NPH/REG 70/30 100 UNIT/ML (x5UNIT) SQ SCH ×2 (09:49→18:15)
[2018-02-04] MEDS: Cholecalciferol (D-3) 1,000 UNIT TABLET PO SCH (09:50)
[2018-02-04] MEDS: Aspirin 81 MG TAB.CHEW PO SCH (09:50)
[2018-02-04] MEDS: Famotidine 20 MG TABLET PO SCH (09:50)
[2018-02-04] MEDS: Cefepime HCl 1,000 MG in Water for inj. (sterile) 20 ML 10 ML IVP SCH (09:51)
--- NOTE | 2018-02-04 10:41 | Nephrology Progress Note ---
Date of Encounter: 02/04/18 Time of Encounter: 10:39 - Assessment and Plan (1) Acute kidney injury superimposed on CKD Current Visit: Yes Status: Acute Urine output continues to improve and creatinine is at a plateau. Hopeful for renal recovery. No acute need for dialysis. Avoid nephrotoxins and adjust medications for renal function. Subjective Principal diagnosis: chest pain Interval history: Patient without new complaint. Objective - Vital Signs Vital signs: Vital Signs Temp Pulse Resp BP Pulse Ox 02/04/18 07:35 97.9 F 79 18 158/67 100 02/04/18 02:52 97.8 F 76 17 157/63 100 02/03/18 23:21 97.9 F 75 17 142/57 100 02/03/18 20:05 97.8 F 84 17 150/62 100 02/03/18 16:07 98.1 F 86 15 165/79 100 02/03/18 11:43 98.0 F 88 16 160/67 100 Intake and Output 02/03/18 02/04/18 02/04/18 23:59 07:59 15:59 Intake Total 236 / 236 100 / 100 Output Total 325 / 325 500 / 500 125 / 125 Balance -89 / -89 -400 / -400 -125 / -125 Intake: Oral 236 / 236 100 / 100 Output: Urine 325 / 325 500 / 500 125 / 125 Other: Stool Size Small Stool Consistency formed # Voids 1 # Bowel Movements 1 Weight 73.3 kg Blood Glucose* 118 194 Patient Weight 02/04/18 23:59 Weight 73.3 kg - General Appearance General appearance: Present: well-developed, well-nourished EENT: Present: ATNC Cardiology: Present: regular rate Neurologic: Present: alert and oriented x3 - Lab 02/04/18 05:48 02/04/18 05:48 Most recent lab results Calcium 7.6 mg/dL (8.6-10.3) L 02/04/18 05:48 Magnesium 1.9 mg/dL (1.6-2.6) 02/01/18 04:21 Urine Creatinine 52 mg/dL 02/03/18 07:25 - VTE Reasons for not Prescribing Prophylaxis: Medical contraindication (Anemia, Suspected GI Bleed) Documentation of Mechanical Device: Intermittent pneumatic compression device Consult Discharge Plan - Plan Instructions: Heart Failure (DC), Chest Pain (DC), Diabetes Mellitus Type 2 in Adults (DC), Chronic Hypertension (DC), Pneumonia (DC), Joint Replacement Surgery, Lead Manufacturing Technician (GEN) Referrals: Tawana Quintero, TRACING LATHE SET UP OPERATOR [Primary Care Provider] -
--- NOTE | 2018-02-04 12:44 | Internal Med Progress Note ---
Date of Encounter: 02/04/18 Time of Encounter: 12:15 - Assessment and plan (1) Left arm weakness Current Visit: Yes Status: Acute Assessment and plan: She is still having issues with L arm. Will check MRI of head and neck to rule out any other process. (2) Nausea & vomiting Current Visit: Yes Status: Acute Assessment and plan: Seems to be doing a little better today. Continue supportive care. Qualifiers: Vomiting type: unspecified Vomiting Intractability: intractable Qualified Code(s): R11.2 - Nausea with vomiting, unspecified (3) Acute renal failure due to tubular necrosis Current Visit: Yes Status: Suspected Assessment and plan: Per renal. (4) NSTEMI (non-ST elevated myocardial infarction) Current Visit: Yes Status: Acute (5) Coronary artery disease Current Visit: Yes Status: Chronic Assessment and plan: Currently has no symptoms. Following. Will need cath in future. Qualifiers: Coronary Disease-Associated Artery/Lesion type: bypass graft [place] vs. transplanted heart: [place] heart Associated angina: without angina Qualified Code(s): I25.810 - Atherosclerosis of coronary artery bypass graft(s) without angina pectoris (6) Type 2 diabetes mellitus with diabetic nephropathy, with long-term current use of insulin Current Visit: Yes Status: Chronic Assessment and plan: Continue follow sugars. (7) Essential hypertension Current Visit: Yes Status: Chronic Assessment and plan: Controlled at this time. (8) Ventilator associated pneumonia Current Visit: Yes Status: Acute Assessment and plan: Abx completed today. (9) Anemia Current Visit: Yes Status: Chronic Assessment and plan: Following. Qualifiers: Anemia type: due to chronic kidney disease Chronic kidney disease stage: stage 4 (severe) Qualified Code(s): N18.4 - Chronic kidney disease, stage 4 ( severe); D63.1 - Anemia in chronic kidney disease; D63.1 - Anemia in chronic kidney disease (10) CKD (chronic kidney disease) stage 4, GFR 15-29 ml/min Current Visit: Yes Status: Chronic Assessment and plan: Chronic issue (11) DVT prophylaxis Current Visit: Yes Status: Acute - Time Spent With Patient Total time spent is greater than 50% in coordination of care (as documented) at patient's floor/unit and/or counseling patient: - Subjective Interval history: Ms Andres is currently admitted for acute NSTEMI and ASHLEY. She remains moderate to high risk due to potential for worsening clinical status. Ms Andres is still dropping things with her L hand. No fever or chills. No cough. Feels tired. No GI issues. - Constitutional Vitals: Temp Pulse Resp BP Pulse Ox 98 F 85 18 150/69 100 02/04/18 11:32 02/04/18 11:32 02/04/18 11:32 02/04/18 11:32 02/04/18 11:32 General appearance: Present: cooperative, A&O X 3, pleasant, answers questions appropriately - Head Head exam: Present: normocephalic - Eye Eye exam: Present: conjuntiva pink - ENT ENT exam: Present: mucous membranes dry - Respiratory Respiratory exam: Present: CTAB. Absent: rales, rhonchi, wheezes - Cardiovascular Cardiovascular exam: Present: RRR. Absent: tachycardia - GI/Abdominal GI/Abdominal exam: Present: soft. Absent: tenderness - Extremities Exam Extremities exam: Present: warm. Absent: tenderness - Neurological Exam Neurological exam: Present: alert, oriented X3, no focal deficits, strengths equal and symetr throughout. Absent: speech deficit - Skin Skin exam: Present: dry, warm Internal Medicine: Result - Labs CBC & Chem 7: 02/04/18 05:48 02/04/18 05:48 Labs: Short CBC 02/04/18 Range/Units 05:48 WBC 6.5 (4.3-11.1) K/mcL Hgb 9.0 L (11.5-15.4) g/dL Hct 28.1 L (35.3-44.9) % Plt Count 145 (140-400) K/mcL BMP 02/04/18 05:48 Sodium 138 Potassium 4.1 Chloride 110 H Carbon Dioxide 18 L BUN 58 H Creatinine 5.12 H Glucose 203 H Calcium 7.6 L - ABG Interpretation ABG results: PT/INR, D-dimer PT 14.1 Seconds (9.4-12.1) H 01/30/18 12:05 - VTE Reasons for not Prescribing Prophylaxis: Medical contraindication (Anemia, Suspected GI Bleed) Documentation of Mechanical Device: Intermittent pneumatic compression device Consult Discharge Plan - Plan Instructions: Heart Failure (DC), Chest Pain (DC), Diabetes Mellitus Type 2 in Adults (DC), Chronic Hypertension (DC), Pneumonia (DC), Joint Replacement Surgery, Sanitation Superintendent (GEN) Referrals: Tawana Quintero, UNDER WATER ASSISTANT [Primary Care Provider] -
[2018-02-04] MEDS ORDERED: Bisacodyl 10 MG RECTAL SUPPOSITORY RC PRN (13:42)
[2018-02-04] MEDS: Acetaminophen 325 MG TABLET PO PRN (16:03)
[2018-02-05] MEDS: *HR* Heparin 5,000 UNIT/ML VIAL SQ SCH ×2 (06:09→18:04)
--- NOTE | 2018-02-05 10:35 | Nephrology Progress Note ---
Date of Encounter: 02/05/18 Time of Encounter: 10:34 - Assessment and Plan (1) Acute kidney injury superimposed on CKD Current Visit: Yes Status: Acute Non-oliguirc and awaiting creatinine today. Hopeful for renal recovery. Avoid nephrotoxins and adjust medications for renal function. BMP has been ordered. Subjective Principal diagnosis: chest pain Interval history: Patient asleep. I'm awaiting labs. Objective - Vital Signs Vital signs: Vital Signs Temp Pulse Resp BP Pulse Ox 02/05/18 07:44 98.1 F 82 18 164/70 100 02/05/18 02:48 99.2 F 78 18 133/57 100 02/04/18 22:43 97.7 F 78 17 158/63 96 02/04/18 20:00 97.9 F 83 18 153/61 100 02/04/18 16:43 97.9 F 83 18 157/71 100 02/04/18 11:32 98 F 85 18 150/69 100 Intake and Output 02/04/18 02/05/18 02/05/18 23:59 07:59 15:59 Intake Total 400 / 400 0 / 0 120 / 120 Output Total 300 / 300 700 / 700 Balance 100 / 100 -700 / -700 120 / 120 Intake: Oral 400 / 400 0 / 0 120 / 120 Output: Urine 300 / 300 700 / 700 Other: Meal Breakfast Percent of Meal Consumed 30% Stool Size Small Small Stool Consistency formed formed Stool Characteristics Mucoid Stool Color Brown # Bowel Movements 1 1 Weight 73.9 kg Blood Glucose* 338 265 Patient Weight 02/05/18 23:59 Weight 73.9 kg - General Appearance General appearance: Present: well-developed, well-nourished Cardiology: Present: regular rate - Lab 02/04/18 05:48 02/04/18 05:48 Most recent lab results Calcium 7.6 mg/dL (8.6-10.3) L 02/04/18 05:48 Magnesium 1.9 mg/dL (1.6-2.6) 02/01/18 04:21 Urine Creatinine 52 mg/dL 02/03/18 07:25 - VTE Reasons for not Prescribing Prophylaxis: Medical contraindication (Anemia, Suspected GI Bleed) Documentation of Mechanical Device: Intermittent pneumatic compression device Consult Discharge Plan - Plan Instructions: Heart Failure (DC), Chest Pain (DC), Diabetes Mellitus Type 2 in Adults (DC), Chronic Hypertension (DC), Pneumonia (DC), Joint Replacement Surgery, Phone Screener (GEN) Referrals: Tawana Quintero, GRAPE CRUSHER [Primary Care Provider] -
[2018-02-05 11:04] LABS: Calcium 7.9 mg/dL (8.6-10.3); Potassium 4.5 mEq/L (3.5-5.1)
[2018-02-05] MEDS: Insulin LISPRO 300 UNITS/3 ML VIAL SQ SCH ×4 (12:54→21:03)
[2018-02-05] MEDS: Insulin NPH/REG 70/30 100 UNIT/ML (x5UNIT) SQ SCH ×2 (12:54→18:04)
[2018-02-05] MEDS: Aspirin 81 MG TAB.CHEW PO SCH (12:54)
[2018-02-05] MEDS: Famotidine 20 MG TABLET PO SCH (12:54)
[2018-02-05] MEDS: Cholecalciferol (D-3) 1,000 UNIT TABLET PO SCH (12:55)
--- NOTE | 2018-02-05 16:09 | Internal Med Progress Note ---
Date of Encounter: 02/05/18 Time of Encounter: 13:15 - Assessment and plan (1) Left arm weakness Current Visit: Yes Status: Resolved Assessment and plan: MRI negative for CVA. Monitoring. (2) Nausea & vomiting Current Visit: Yes Status: Resolved Assessment and plan: Less nausea today. Following. Qualifiers: Vomiting type: unspecified Vomiting Intractability: intractable Qualified Code(s): R11.2 - Nausea with vomiting, unspecified (3) Acute renal failure due to tubular necrosis Current Visit: Yes Status: Suspected Assessment and plan: Per renal service. Appears to be at plateau. (4) NSTEMI (non-ST elevated myocardial infarction) Current Visit: Yes Status: Acute Assessment and plan: Pt admitted with chest pain and troponins elevated c/w acute NSTEMI. Remains asymptomatic. Plan [facility] when renal function improves. (5) Coronary artery disease Current Visit: Yes Status: Chronic Assessment and plan: Currently has no symptoms. Following. Will need cath in future. Qualifiers: Coronary Disease-Associated Artery/Lesion type: bypass graft [place] vs. transplanted heart: [place] heart Associated angina: without angina Qualified Code(s): I25.810 - Atherosclerosis of coronary artery bypass graft(s) without angina pectoris (6) Type 2 diabetes mellitus with diabetic nephropathy, with long-term current use of insulin Current Visit: Yes Status: Chronic Assessment and plan: Continue follow sugars. (7) Essential hypertension Current Visit: Yes Status: Chronic Assessment and plan: Controlled at this time. (8) Ventilator associated pneumonia Current Visit: Yes Status: Resolved (9) Anemia Current Visit: Yes Status: Chronic Assessment and plan: Following. Qualifiers: Anemia type: due to chronic kidney disease Chronic kidney disease stage: stage 4 (severe) Qualified Code(s): N18.4 - Chronic kidney disease, stage 4 ( severe); D63.1 - Anemia in chronic kidney disease; D63.1 - Anemia in chronic kidney disease (10) CKD (chronic kidney disease) stage 4, GFR 15-29 ml/min Current Visit: Yes Status: Chronic Assessment and plan: Chronic issue (11) DVT prophylaxis Current Visit: Yes Status: Acute Assessment and plan: On heparin subqu. - Time Spent With Patient Total time spent is greater than 50% in coordination of care (as documented) at patient's floor/unit and/or counseling patient: - Subjective Interval history: Ms Andres is currently admitted for acute NSTEMI and ASHLEY. She remains moderate to high risk due to potential for worsening clinical status. Ms Andres is beginning to improve. She is not dropping things today. No fever or chills. Eating better today. No diarrhea. Urinating ok but she feels is still less than usual. - Constitutional Vitals: Temp Pulse Resp BP Pulse Ox 97.8 F 82 18 151/68 99 02/05/18 14:45 02/05/18 14:45 02/05/18 14:45 02/05/18 14:45 02/05/18 14:45 General appearance: Present: cooperative, A&O X 3, pleasant, answers questions appropriately - Head Head exam: Present: normocephalic - Eye Eye exam: Present: conjuntiva pink - ENT ENT exam: Present: mucous membranes dry - Respiratory Respiratory exam: Present: CTAB. Absent: rhonchi, wheezes - Cardiovascular Cardiovascular exam: Present: RRR. Absent: tachycardia - GI/Abdominal GI/Abdominal exam: Present: soft. Absent: tenderness - Extremities Exam Extremities exam: Present: warm. Absent: tenderness - Neurological Exam Neurological exam: Present: alert, oriented X3, no focal deficits - Skin Skin exam: Present: dry, warm Internal Medicine: Result - Labs CBC & Chem 7: 02/04/18 05:48 02/05/18 10:28 Labs: BMP 02/05/18 10:28 Sodium 137 Potassium 4.5 Chloride 108 H Carbon Dioxide 20 L BUN 64 H Creatinine 5.57 H Glucose 382 H Calcium 7.9 L - ABG Interpretation ABG results: PT/INR, D-dimer PT 14.1 Seconds (9.4-12.1) H 01/30/18 12:05 - Impressions Impressions Brain MRI 02/04/18 12:42 IMPRESSION: 1. No acute intracranial abnormality. 2. Minimal global parenchymal volume loss with mild chronic microvascular ischemic change. D/ / Antonio Goldstein MD / Antonio Goldstein MD Interpreting Provider: Antonio Goldstein MD Cervical Spine MRI 02/04/18 12:42 IMPRESSION: 1. Motion limits evaluation. 2. Degenerative changes contribute to perhaps minimal spinal canal stenosis at C4-C5. 3. Degenerative changes contribute to neural foraminal narrowing as above. 4. No convincing spondylolisthesis. D/ / Antonio Goldstein MD / Antonio Goldstein MD Interpreting Provider: Antonio Goldstein MD - VTE Reasons for not Prescribing Prophylaxis: Medical contraindication (Anemia, Suspected GI Bleed) Documentation of Mechanical Device: Intermittent pneumatic compression device Consult Discharge Plan - Plan Instructions: Heart Failure (DC), Chest Pain (DC), Diabetes Mellitus Type 2 in Adults (DC), Chronic Hypertension (DC), Pneumonia (DC), Joint Replacement Surgery, Cord Tire Builder (GEN) Referrals: Tawana Quintero, PROJECT EXECUTIVE [Primary Care Provider] -
[2018-02-05] MEDS: Ondansetron 4 MG/2 ML VIAL IVP PRN (22:30)
[2018-02-05] MEDS: Sodium Bicarbonate 150 MEQ in D5% in Water 1,000 ML IVC SCH (22:32)
[2018-02-06 05:16] LABS: Hematocrit 25.8 % (35.3-44.9); Hemoglobin 8.1 g/dL (11.5-15.4); Mean Corpuscular HGB Conc 31.4 g/dL (31.6-35.5); Mean Corpuscular Volume 95.6 fL (83.0-100.0); Mean Platelet Volume 12.8 fL (9.4-12.4); Platelet Count 125 K/mcL (140-400); Red Cell Distribution Width 14.9 % (11.5-14.5)
[2018-02-06 05:33] LABS: Albumin 2.6 g/dL (3.5-5.7); Albumin/Globulin Ratio 1.1 (1.1-2.2); Bilirubin,Total 0.3 mg/dL (0.3-1.0); Globulin 2.4 g/dL (2.4-3.5); Magnesium 1.9 mg/dL (1.6-2.6); Potassium 4.1 mEq/L (3.5-5.1)
[2018-02-06] MEDS: *HR* Heparin 5,000 UNIT/ML VIAL SQ SCH ×2 (06:29→18:18)
[2018-02-06 08:03] LABS: GBM IgG Multiplex Bead Assay 0 AU/mL (0-19); Glomerular Basement Memb IgG NEGATIVE (Negative); Myeloperoxidase Ab 0 AU/mL (0-19); Serine Protease-3 Antibody 0 AU/mL (0-19)
[2018-02-06] MEDS: Famotidine 20 MG TABLET PO SCH (09:33)
[2018-02-06] MEDS: Cholecalciferol (D-3) 1,000 UNIT TABLET PO SCH (09:33)
[2018-02-06] MEDS: Insulin LISPRO 300 UNITS/3 ML VIAL SQ SCH ×4 (09:33→22:33)
[2018-02-06] MEDS: Aspirin 81 MG TAB.CHEW PO SCH (09:34)
[2018-02-06] MEDS: Insulin NPH/REG 70/30 100 UNIT/ML (x5UNIT) SQ SCH (09:34)
--- NOTE | 2018-02-06 11:39 | Internal Med Progress Note ---
<Anastacio Oscar - Last Filed: 02/06/18 16:40> Date of Encounter: 02/06/18 Time of Encounter: 09:00 - Assessment and plan (1) Coronary artery disease Current Visit: Yes Status: Chronic Assessment and plan: chest pain was similar to previous AL. has since resolved, but on admission patient had elevated trops. Cardiology will be reconsulted for [facility] once renal function has recovered. - cardiac and renal diet Qualifiers: Coronary Disease-Associated Artery/Lesion type: bypass graft [place] vs. transplanted heart: [place] heart Associated angina: without angina Qualified Code(s): I25.810 - Atherosclerosis of coronary artery bypass graft(s) without angina pectoris (2) Acute kidney injury superimposed on CKD Current Visit: Yes Status: Acute Assessment and plan: Today is first day to have improvement in renal function. Her Cr downtrended from 5.57 to 5.48. Patient received a bolus of IVF yesterday, but remains hypervolemic. per nephrology, patient has most likely plateau'ed at this time, but will continue to monitor renal function and fluid status. (3) Anemia Current Visit: Yes Status: Suspected Assessment and plan: Patient hgb has dropped from 9.0 to 8.1. Patient has chronic anemia, and IVF most likely a contributor for acute drop in hgb. no active signs of bleeding. Will continue to monitor h&h Qualifiers: Anemia type: due to chronic kidney disease Chronic kidney disease stage: stage 4 (severe) Qualified Code(s): N18.4 - Chronic kidney disease, stage 4 ( severe); D63.1 - Anemia in chronic kidney disease; D63.1 - Anemia in chronic kidney disease (4) Chest pain Current Visit: Yes Status: Acute Assessment and plan: currently does not have chest pain Qualifiers: Chest pain type: precordial pain Qualified Code(s): R07.2 - Precordial pain (5) Left arm weakness Current Visit: Yes Status: Resolved Assessment and plan: MRI negative for CVA - Time Spent With Patient Total time spent is greater than 50% in coordination of care (as documented) at patient's floor/unit and/or counseling patient: - Subjective Interval history: Ms Andres is on day 13 of hospitalization. Patient is seen and examined. PAtient reports feeling a little bit better today. She states that she had abdominal pain, but was resolved with a bowel movement. her first since hospitalization. Patient also reports that she's been peeing a lot. PAtient denies chest pain, SOB, nausea, or vomiting. - Constitutional Vitals: Temp Pulse Resp BP Pulse Ox 97.5 F L 81 17 156/66 100 02/06/18 07:53 02/06/18 11:00 02/06/18 11:00 02/06/18 11:00 02/06/18 11:00 General appearance: Present: cooperative, A&O X 3, pleasant, no acute distress, answers questions appropriately - Head Head exam: Present: normal inspection - Neck Neck exam general surgery: Present: supple - Respiratory Respiratory exam: Present: CTAB. Absent: accessory muscle use, rales, rhonchi, wheezes - Cardiovascular Cardiovascular exam: Present: RRR, +S1, +S2. Absent: diastolic murmur, gallop, rubs, systolic murmur - GI/Abdominal GI/Abdominal exam: Present: normal bowel sounds, soft, no peritoneal signs. Absent: distended, tenderness - Extremities Exam Extremities exam: Present: pedal edema (2+ BLE) Internal Medicine: Result - Labs CBC & Chem 7: 02/06/18 04:56 02/06/18 04:56 Labs: Short CBC 02/06/18 Range/Units 04:56 WBC 7.3 (4.3-11.1) K/mcL Hgb 8.1 L (11.5-15.4) g/dL Hct 25.8 L (35.3-44.9) % Plt Count 125 L (140-400) K/mcL BMP 02/06/18 04:56 Sodium 136 Potassium 4.1 Chloride 105 Carbon Dioxide 23 BUN 64 H Creatinine 5.48 H Glucose 230 H Calcium 8.0 L Liver Function 02/06/18 Range/Units 04:56 Total Bilirubin 0.3 (0.3-1.0) mg/dL AST 61 H (13-39) Units/L ALT 69 H (7-52) Units/L Alkaline Phosphatase 127 H (34-104) Units/L Albumin 2.6 L (3.5-5.7) g/dL - ABG Interpretation ABG results: PT/INR, D-dimer PT 14.1 Seconds (9.4-12.1) H 01/30/18 12:05 - VTE Reasons for not Prescribing Prophylaxis: Medical contraindication (Anemia, Suspected GI Bleed) Documentation of Mechanical Device: Intermittent pneumatic compression device Consult Discharge Plan - Plan Instructions: Heart Failure (DC), Chest Pain (DC), Diabetes Mellitus Type 2 in Adults (DC), Chronic Hypertension (DC), Pneumonia (DC), Joint Replacement Surgery, Schedule Clerk (GEN) Referrals: Tawana Quintero, SUPERVISOR DRIED YEAST [Primary Care Provider] - <Williams Monroy - Last Filed: 02/06/18 19:47> Date of Encounter: 02/06/18 - Assessment and plan (1) Acute renal failure due to tubular necrosis Current Visit: Yes Status: Suspected (2) Left arm weakness Current Visit: Yes Status: Resolved (3) Nausea & vomiting Current Visit: Yes Status: Resolved Qualifiers: Vomiting type: unspecified Vomiting Intractability: intractable Qualified Code(s): R11.2 - Nausea with vomiting, unspecified (4) NSTEMI (non-ST elevated myocardial infarction) Current Visit: Yes Status: Acute (5) Coronary artery disease Current Visit: Yes Status: Chronic Qualifiers: Coronary Disease-Associated Artery/Lesion type: bypass graft [place] vs. transplanted heart: [place] heart Associated angina: without angina Qualified Code(s): I25.810 - Atherosclerosis of coronary artery bypass graft(s) without angina pectoris (6) Type 2 diabetes mellitus with diabetic nephropathy, with long-term current use of insulin Current Visit: Yes Status: Chronic (7) Essential hypertension Current Visit: Yes Status: Chronic (8) Ventilator associated pneumonia Current Visit: Yes Status: Resolved (9) Anemia Current Visit: Yes Status: Suspected Qualifiers: Anemia type: due to chronic kidney disease Chronic kidney disease stage: stage 4 (severe) Qualified Code(s): N18.4 - Chronic kidney disease, stage 4 ( severe); D63.1 - Anemia in chronic kidney disease; D63.1 - Anemia in chronic kidney disease (10) CKD (chronic kidney disease) stage 4, GFR 15-29 ml/min Current Visit: Yes Status: Chronic (11) DVT prophylaxis Current Visit: Yes Status: Acute - Time Spent With Patient Total time spent is greater than 50% in coordination of care (as documented) at patient's floor/unit and/or counseling patient: - Constitutional Vitals: Temp Pulse Resp BP Pulse Ox 98.0 F 73 15 156/83 100 02/06/18 16:00 02/06/18 16:00 02/06/18 16:00 02/06/18 16:00 02/06/18 16:00 Internal Medicine: Result - Labs CBC & Chem 7: 02/06/18 04:56 02/06/18 04:56 Labs: Short CBC 02/06/18 Range/Units 04:56 WBC 7.3 (4.3-11.1) K/mcL Hgb 8.1 L (11.5-15.4) g/dL Hct 25.8 L (35.3-44.9) % Plt Count 125 L (140-400) K/mcL BMP 02/06/18 04:56 Sodium 136 Potassium 4.1 Chloride 105 Carbon Dioxide 23 BUN 64 H Creatinine 5.48 H Glucose 230 H Calcium 8.0 L Liver Function 02/06/18 Range/Units 04:56 Total Bilirubin 0.3 (0.3-1.0) mg/dL AST 61 H (13-39) Units/L ALT 69 H (7-52) Units/L Alkaline Phosphatase 127 H (34-104) Units/L Albumin 2.6 L (3.5-5.7) g/dL - ABG Interpretation ABG results: PT/INR, D-dimer PT 14.1 Seconds (9.4-12.1) H 01/30/18 12:05 - Attending Attestation I examined this patient and my medical decision-making was reviewed with the Resident Physician on 02/06/18. I agree with the documented findings, disposition and treatment plan as described except to the extent set forth below. Ms Andres is currently admitted for NSTEMI and ASHLEY. She remains moderate to high risk due to potential for worsening clinical status. Ms Andres feels somewhat dyspneic since fluids started. No fever or chills. No CP. No GI issues Exam alert Comfortable at this time. Mucus membranes dry Heart reg No wheeze now Abd soft I/P 1. ASHLEY 2. NSTEMI Further diagnoses and plan as above.
--- NOTE | 2018-02-06 11:40 | Nephrology Progress Note ---
Date of Encounter: 02/06/18 Time of Encounter: 11:39 - Assessment and Plan (1) Acute kidney injury superimposed on CKD Current Visit: Yes Status: Acute Non-oliguric Hopeful for renal recovery. Avoid nephrotoxins and adjust medications for renal function. creatinine is slightly better today. No acute need for dialysis. Continue to follow. (2) Constipation Current Visit: Yes Status: Acute Fiber therapy. Qualifiers: Qualified Code(s): K59.00 - Constipation, unspecified Subjective Principal diagnosis: chest pain Interval history: Patient seen. She complains of feeling constipated. Otherwise she is stable with some TRIPLETT. Objective - Vital Signs Vital signs: Vital Signs Temp Pulse Resp BP Pulse Ox 02/06/18 11:00 81 17 156/66 100 02/06/18 07:53 97.5 F L 80 18 155/57 98 02/06/18 02:50 98.1 F 73 16 152/65 99 02/05/18 22:50 98 F 76 16 146/63 97 02/05/18 20:16 97.9 F 84 16 118/82 98 02/05/18 14:45 97.8 F 82 18 151/68 99 Intake and Output 02/05/18 02/06/18 02/06/18 23:59 07:59 15:59 Intake Total 0 / 0 0 / 0 1290 / 1290 Output Total 300 / 300 200 / 200 Balance -300 / -300 -200 / -200 1290 / 1290 Intake: IV Fluids 1050 / 1050 Sodium Bicarbonate 150 MEQ In 1050 / 1050 Dextrose 5% 1,000 ML @ 100 mls/ hr IVC .[id number] [facility] Rx#: [id number] Oral 0 / 0 0 / 0 240 / 240 Output: Urine 300 / 300 200 / 200 Other: Meal Breakfast Percent of Meal Consumed 40% Stool Size Small Stool Consistency formed Stool Color Brown # Bowel Movements 1 Weight 74.5 kg Blood Glucose* 342 287 315 Patient Weight 02/06/18 23:59 Weight 74.5 kg - General Appearance General appearance: Present: well-developed, well-nourished EENT: Present: ATNC Respiratory: Present: course breath sounds Cardiology: Present: edema, regular rate Integumentary: Present: warm and dry Neurologic: Present: alert and oriented x3 Psychiatric: Present: mood/affect appropriate - Lab 02/06/18 04:56 04/09/18 04:56 Most recent lab results Calcium 8.0 mg/dL (8.6-10.3) L 02/06/18 04:56 Magnesium 1.9 mg/dL (1.6-2.6) 02/06/18 04:56 Urine Creatinine 52 mg/dL 02/03/18 07:25 - VTE Reasons for not Prescribing Prophylaxis: Medical contraindication (Anemia, Suspected GI Bleed) Documentation of Mechanical Device: Intermittent pneumatic compression device Consult Discharge Plan - Plan Instructions: Heart Failure (DC), Chest Pain (DC), Diabetes Mellitus Type 2 in Adults (DC), Chronic Hypertension (DC), Pneumonia (DC), Joint Replacement Surgery, Hydrogen Plant Operations Manager (GEN) Referrals: Tawana Quintero CIRCUIT BOARD DRAFTER [Primary Care Provider] -
[2018-02-06] MEDS: Sodium Bicarbonate 150 MEQ in D5% in Water 1,000 ML IVC SCH (11:53)
[2018-02-07 04:55] LABS: Hematocrit 25.1 % (35.3-44.9); Hemoglobin 8.2 g/dL (11.5-15.4); Immature Platelets 7.6 % (1.1-6.1); Mean Corpuscular HGB Conc 32.7 g/dL (31.6-35.5); Mean Corpuscular Volume 91.9 fL (83.0-100.0); Mean Platelet Volume 12.5 fL (9.4-12.4); Platelet Count 176 K/mcL (140-400); Red Blood Count 2.73 M/mcL (3.82-4.97); Red Cell Distribution Width 14.9 % (11.5-14.5)
[2018-02-07 05:01] LABS: Albumin 2.6 g/dL (3.5-5.7); Albumin/Globulin Ratio 0.9 (1.1-2.2); Bilirubin,Total 0.3 mg/dL (0.3-1.0); Calcium 8.4 mg/dL (8.6-10.3); Globulin 2.8 g/dL (2.4-3.5); Potassium 4.6 mEq/L (3.5-5.1); Total Protein 5.4 g/dL (6.4-8.9)
[2018-02-07 05:09] LABS: Basophils % 0.3 %; Eosinophils # 0.3 K/mcL (0.0-0.6); Eosinophils % 3.1 %; Immature Granulocytes % 0.6 % (0-4); Lymphocytes # 0.9 K/mcL (0.6-4.6); Monocytes # 1.1 K/mcL (0.0-1.3); Monocytes % 11.6 %; Neutrophils # 7.3 K/mcL (1.6-8.9); Segmented Neutrophils % 75.4 %
[2018-02-07] MEDS: *HR* Heparin 5,000 UNIT/ML VIAL SQ SCH ×2 (05:45→17:47)
[2018-02-07] MEDS: Aspirin 81 MG TAB.CHEW PO SCH (09:35)
[2018-02-07] MEDS: Famotidine 20 MG TABLET PO SCH (09:35)
[2018-02-07] MEDS: Cholecalciferol (D-3) 1,000 UNIT TABLET PO SCH (09:35)
[2018-02-07] MEDS: Insulin LISPRO 300 UNITS/3 ML VIAL SQ SCH ×4 (09:36→21:57)
[2018-02-07] MEDS: Insulin NPH/REG 70/30 100 UNIT/ML (x5UNIT) SQ SCH ×2 (09:43→17:51)
--- NOTE | 2018-02-07 10:34 | Nephrology Progress Note ---
Date of Encounter: 02/07/18 Time of Encounter: 10:33 - Assessment and Plan (1) Acute kidney injury superimposed on CKD Current Visit: Yes Status: Acute Non-oliguric Hopeful for renal recovery. Avoid nephrotoxins and adjust medications for renal function. creatinine is slightly worse today. No acute need for dialysis. Continue to follow. I had a conversation with the patient regarding the worsening creatinine today. I will let her know that this increases the likelihood of her needing dialysis. While she seemed agreeable before she now seems hesitant to pursue dialysis. I recommended a palliative consult and she was agreeable to talking with palliative care to help her with decision making. (2) Constipation Current Visit: Yes Status: Acute Fiber therapy. Qualifiers: Qualified Code(s): K59.00 - Constipation, unspecified Subjective Principal diagnosis: chest pain Interval history: Patient seen. She has no new complaint. Otherwise she is stable with some TRIPLETT. Objective - Vital Signs Vital signs: Vital Signs Temp Pulse Resp BP Pulse Ox 02/07/18 09:00 98.5 F 89 22 150/60 98 02/07/18 03:48 98.0 F 87 20 145/61 93 02/06/18 22:27 98.2 F 82 16 142/60 100 02/06/18 19:57 100 02/06/18 16:00 98.0 F 73 15 156/83 100 02/06/18 11:00 81 17 156/66 100 Intake and Output 02/06/18 02/07/18 02/07/18 23:59 07:59 15:59 Intake Total 290 / 290 0 / 0 120 / 120 Output Total 150 / 150 100 / 100 Balance 140 / 140 0 / 0 20 / 20 Intake: Oral 290 / 290 0 / 0 120 / 120 Output: Urine 150 / 150 100 / 100 Other: Meal Dinner Breakfast Percent of Meal Consumed 30% 15% Stool Size Small Stool Consistency soft formed Stool Characteristics Normal for Patient Stool Color Brown # Voids 0 # Bowel Movements 1 Weight 74.5 kg Blood Glucose* 123 192 Patient Weight 02/07/18 23:59 Weight 74.5 kg - General Appearance General appearance: Present: well-developed, well-nourished Neck: Present: supple Cardiology: Present: edema, regular rate Neurologic: Present: alert and oriented x3 Psychiatric: Present: mood/affect appropriate - Lab 02/07/18 04:17 02/07/18 04:17 Most recent lab results Calcium 8.4 mg/dL (8.6-10.3) L 02/07/18 04:17 Magnesium 1.9 mg/dL (1.6-2.6) 02/06/18 04:56 Urine Creatinine 52 mg/dL 02/03/18 07:25 - VTE Reasons for not Prescribing Prophylaxis: Medical contraindication (Anemia, Suspected GI Bleed) Documentation of Mechanical Device: Intermittent pneumatic compression device Consult Discharge Plan - Plan Instructions: Heart Failure (DC), Chest Pain (DC), Diabetes Mellitus Type 2 in Adults (DC), Chronic Hypertension (DC), Pneumonia (DC), Joint Replacement Surgery, Word Processing Supervisor (GEN) Referrals: Tawana Quintero CNP [Primary Care Provider] -
--- NOTE | 2018-02-07 11:14 | Nephrology Progress Note ---
Date of Encounter: 02/07/18 Time of Encounter: 08:00 - Assessment and Plan (1) Coronary artery disease Current Visit: Yes Status: Chronic per primary team Qualifiers: Coronary Disease-Associated Artery/Lesion type: bypass graft [place] vs. 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 At this point MIDDLE SCHOOL VOLLEYBALL COACH is not needed. Dr. Reveles discussed this with the primary team. Patient is slighty hypervolumic and fluids can be backed off at this time. Patient continues to be non- oliguric with good urine output. - D/C fluids at this point - continue to increase PO fluid intake - CUBA, C3, C4, GBM, ANCA - pending (3) Anemia Current Visit: Yes Status: Suspected per primary team, most likely chronic. Qualifiers: Anemia type: due to chronic kidney disease Chronic kidney disease stage: stage 4 (severe) Qualified Code(s): N18.4 - Chronic kidney disease, stage 4 ( severe); D63.1 - Anemia in chronic kidney disease; D63.1 - Anemia in chronic kidney disease (4) Chest pain Current Visit: Yes Status: Acute per primary team Qualifiers: Chest pain type: precordial pain Qualified Code(s): R07.2 - Precordial pain (5) Left arm weakness Current Visit: Yes Status: Resolved Subjective Principal diagnosis: chest pain Interval history: Ms Andres is on day 14 of hospitalization. Patient is seen and examined. Patient reports feeling a lot better today. She reports her urination has increased ovenight in frequency and volume. She states that she had abdominal pain, but was resolved with a bowel movement. her first since hospitalization. Patient also reports that she's been peeing a lot. PAtient denies chest pain , SOB, nausea, or vomiting. Objective - Vital Signs Vital signs: Vital Signs Temp Pulse Resp BP Pulse Ox 02/07/18 09:00 98.5 F 89 22 150/60 98 02/07/18 03:48 98.0 F 87 20 145/61 93 02/06/18 22:27 98.2 F 82 16 142/60 100 02/06/18 19:57 100 02/06/18 16:00 98.0 F 73 15 156/83 100 Intake and Output 02/06/18 02/07/18 02/07/18 23:59 07:59 15:59 Intake Total 290 / 290 0 / 0 120 / 120 Output Total 150 / 150 100 / 100 Balance 140 / 140 0 / 0 20 / 20 Intake: Oral 290 / 290 0 / 0 120 / 120 Output: Urine 150 / 150 100 / 100 Other: Meal Dinner Breakfast Percent of Meal Consumed 30% 15% Stool Size Small Stool Consistency soft formed Stool Characteristics Normal for Patient Stool Color Brown # Voids 0 # Bowel Movements 1 Weight 74.5 kg Blood Glucose* 123 192 Patient Weight 02/07/18 23:59 Weight 74.5 kg - Lab 02/07/18 04:17 02/07/18 04:17 Most recent lab results Calcium 8.4 mg/dL (8.6-10.3) L 02/07/18 04:17 Magnesium 1.9 mg/dL (1.6-2.6) 02/06/18 04:56 Urine Creatinine 52 mg/dL 02/03/18 07:25 - VTE Reasons for not Prescribing Prophylaxis: Medical contraindication (Anemia, Suspected GI Bleed) Documentation of Mechanical Device: Intermittent pneumatic compression device Consult Discharge Plan - Plan Instructions: Heart Failure (DC), Chest Pain (DC), Diabetes Mellitus Type 2 in Adults (DC), Chronic Hypertension (DC), Pneumonia (DC), Joint Replacement Surgery, Income Tax Adjuster (GEN) Referrals: Tawana Quintero SIGNAL HELPER [Primary Care Provider] -
--- NOTE | 2018-02-07 11:23 | Internal Med Progress Note ---
<Anastacio Oscar - Last Filed: 02/07/18 11:46> Date of Encounter: 02/07/18 Time of Encounter: 08:00 - Assessment and plan (1) Acute kidney injury superimposed on CKD Current Visit: Yes Status: Acute Assessment and plan: Cr mildly increased today from 5.48 to 5.67. - patient was discussed with project manager senior, Dr. Reveles, he will evaluate if patient will need temporary HD. appreciate nephrology's recommendations (2) Coronary artery disease Current Visit: Yes Status: Chronic Assessment and plan: chest pain was similar to previous NC. has since resolved, but on admission patient had elevated trops. Cardiology will be reconsulted for [facility] once renal function has recovered. - cardiac and renal diet Qualifiers: Coronary Disease-Associated Artery/Lesion type: bypass graft [place] vs. transplanted heart: [place] heart Associated angina: without angina Qualified Code(s): I25.810 - Atherosclerosis of coronary artery bypass graft(s) without angina pectoris (3) Anemia Current Visit: Yes Status: Suspected Assessment and plan: Patient's hgb is stable today at 8.2, if further drops will further workup. Qualifiers: Anemia type: due to chronic kidney disease Chronic kidney disease stage: stage 4 (severe) Qualified Code(s): N18.4 - Chronic kidney disease, stage 4 ( severe); D63.1 - Anemia in chronic kidney disease; D63.1 - Anemia in chronic kidney disease (4) Chest pain Current Visit: Yes Status: Acute Assessment and plan: currently asymptomatic Qualifiers: Chest pain type: precordial pain Qualified Code(s): R07.2 - Precordial pain (5) Left arm weakness Current Visit: Yes Status: Resolved Assessment and plan: MRI negative - Time Spent With Patient Total time spent is greater than 50% in coordination of care (as documented) at patient's floor/unit and/or counseling patient: - Subjective Interval history: Patient is seen and examined. Ms Andres reports feeling a lot better today. She states that she's been urinating more. She continues to deny chest pain. And today she has no shortness of breath. All other ROS is negative - Constitutional Vitals: Temp Pulse Resp BP Pulse Ox 98.5 F 89 22 150/60 98 02/07/18 09:00 02/07/18 09:00 02/07/18 09:00 02/07/18 09:00 02/07/18 09:00 General appearance: Present: cooperative, A&O X 3, pleasant, no acute distress, answers questions appropriately - Head Head exam: Present: atraumatic, normocephalic - ENT ENT exam: Present: mucous membranes moist - Respiratory Respiratory exam: Present: CTAB. Absent: accessory muscle use, rales, rhonchi, wheezes - Cardiovascular Cardiovascular exam: Present: RRR - Extremities Exam Extremities exam: Present: pedal edema (2+ BLE) Internal Medicine: Result - Labs CBC & Chem 7: 02/07/18 04:17 02/07/18 04:17 Labs: Short CBC 02/07/18 Range/Units 04:17 WBC 9.7 (4.3-11.1) K/mcL Hgb 8.2 L (11.5-15.4) g/dL Hct 25.1 L (35.3-44.9) % Plt Count 176 (140-400) K/mcL Neutrophils # 7.3 (1.6-8.9) K/mcL BMP 02/07/18 04:17 Sodium 139 Potassium 4.6 Chloride 106 Carbon Dioxide 23 BUN 61 H Creatinine 5.67 H Glucose 107 H Calcium 8.4 L Liver Function 02/07/18 Range/Units 04:17 Total Bilirubin 0.3 (0.3-1.0) mg/dL AST 53 H (13-39) Units/L ALT 64 H (7-52) Units/L Alkaline Phosphatase 131 H (34-104) Units/L Albumin 2.6 L (3.5-5.7) g/dL - ABG Interpretation ABG results: PT/INR, D-dimer PT 14.1 Seconds (9.4-12.1) H 01/30/18 12:05 - VTE Reasons for not Prescribing Prophylaxis: Medical contraindication (Anemia, Suspected GI Bleed) Documentation of Mechanical Device: Intermittent pneumatic compression device Consult Discharge Plan - Plan Instructions: Heart Failure (DC), Chest Pain (DC), Diabetes Mellitus Type 2 in Adults (DC), Chronic Hypertension (DC), Pneumonia (DC), Joint Replacement Surgery, Wellness Nurse (GEN) Referrals: Tawana Quintero, TAX[employer] SERVICER [Primary Care Provider] - <Williams Monroy - Last Filed: 02/07/18 19:04> Date of Encounter: 02/07/18 - Assessment and plan (1) Acute renal failure due to tubular necrosis Current Visit: Yes Status: Suspected (2) NSTEMI (non-ST elevated myocardial infarction) Current Visit: Yes Status: Acute (3) Coronary artery disease Current Visit: Yes Status: Chronic Qualifiers: Coronary Disease-Associated Artery/Lesion type: bypass graft [place] vs. transplanted heart: [place] heart Associated angina: without angina Qualified Code(s): I25.810 - Atherosclerosis of coronary artery bypass graft(s) without angina pectoris (4) Type 2 diabetes mellitus with diabetic nephropathy, with long-term current use of insulin Current Visit: Yes Status: Chronic (5) Essential hypertension Current Visit: Yes Status: Chronic (6) Ventilator associated pneumonia Current Visit: Yes Status: Resolved (7) Anemia Current Visit: Yes Status: Suspected Qualifiers: Anemia type: due to chronic kidney disease Chronic kidney disease stage: stage 4 (severe) Qualified Code(s): N18.4 - Chronic kidney disease, stage 4 ( severe); D63.1 - Anemia in chronic kidney disease; D63.1 - Anemia in chronic kidney disease (8) CKD (chronic kidney disease) stage 4, GFR 15-29 ml/min Current Visit: Yes Status: Chronic (9) DVT prophylaxis Current Visit: Yes Status: Acute - Time Spent With Patient Total time spent is greater than 50% in coordination of care (as documented) at patient's floor/unit and/or counseling patient: - Constitutional Vitals: Temp Pulse Resp BP Pulse Ox 97.7 F 85 20 155/61 100 02/07/18 15:39 02/07/18 15:39 02/07/18 15:39 02/07/18 15:39 02/07/18 15:39 Internal Medicine: Result - Labs CBC & Chem 7: 02/07/18 04:17 02/07/18 04:17 Labs: Short CBC 02/07/18 Range/Units 04:17 WBC 9.7 (4.3-11.1) K/mcL Hgb 8.2 L (11.5-15.4) g/dL Hct 25.1 L (35.3-44.9) % Plt Count 176 (140-400) K/mcL Neutrophils # 7.3 (1.6-8.9) K/mcL BMP 02/07/18 04:17 Sodium 139 Potassium 4.6 Chloride 106 Carbon Dioxide 23 BUN 61 H Creatinine 5.67 H Glucose 107 H Calcium 8.4 L Liver Function 02/07/18 Range/Units 04:17 Total Bilirubin 0.3 (0.3-1.0) mg/dL AST 53 H (13-39) Units/L ALT 64 H (7-52) Units/L Alkaline Phosphatase 131 H (34-104) Units/L Albumin 2.6 L (3.5-5.7) g/dL - ABG Interpretation ABG results: PT/INR, D-dimer PT 14.1 Seconds (9.4-12.1) H 01/30/18 12:05 - Attending Attestation I examined this patient and my medical decision-making was reviewed with the Resident Physician on 02/07/18. I agree with the documented findings, disposition and treatment plan as described except to the extent set forth below. Ms Andres is currently admitted due to NSTEMI and acute renal failure. She remains moderate to high risk due to potential for worsening clinical status. Ms Andres feels OK. No fever or chills. No SOB. Appetite is OK. Exam alert. Comfortable Mucus membranes moist Heart reg No wheeze I/P 1. Renal failure 2. NSTEMI Further diagnoses and plan as above.
[2018-02-07] MEDS: Sodium Bicarbonate 150 MEQ in D5% in Water 1,000 ML IVC SCH (21:58)
[2018-02-08 05:39] LABS: Calcium 8.5 mg/dL (8.6-10.3); Potassium 4.8 mEq/L (3.5-5.1)
[2018-02-08] MEDS: *HR* Heparin 5,000 UNIT/ML VIAL SQ SCH ×2 (06:38→21:17)
[2018-02-08 07:04] LABS: Hematocrit 25.8 % (35.3-44.9); Hemoglobin 8.1 g/dL (11.5-15.4); Mean Corpuscular HGB Conc 31.4 g/dL (31.6-35.5); Mean Corpuscular Hemoglobin 30.6 pg (28.0-33.3); Mean Corpuscular Volume 97.4 fL (83.0-100.0); Mean Platelet Volume 11.9 fL (9.4-12.4); Platelet Count 192 K/mcL (140-400); Red Blood Count 2.65 M/mcL (3.82-4.97); Red Cell Distribution Width 14.9 % (11.5-14.5)
--- NOTE | 2018-02-08 09:04 | Palliative - Consult Note ---
Date of Encounter: 02/08/18 Time of Encounter: 07:30 - Assessment and Plan (1) Nausea and vomiting Current Visit: Yes Status: Acute Assessment and plan: Patient states her appetite is down, does seem to have intermittent episodes of nausea but no actual vomiting. Does not notice nausea with food, however she feels hungry and then when the food he gets there she is no longer hungry. Patient's bowels are moving might be worth a trial of plan see if this helps with the chronic nausea and the may also help therefore with the appetite. Will discuss with the hospitalist team. Qualifiers: Vomiting type: unspecified Vomiting Intractability: non-intractable Qualified Code(s): R11.2 - Nausea with vomiting, unspecified (2) Ventilator associated pneumonia Current Visit: Yes Status: Resolved Assessment and plan: Patient has completed antibiotics plan per hospitalist team (3) NSTEMI (non-ST elevated myocardial infarction) Current Visit: Yes Status: Acute Assessment and plan: Cardiology is awaiting stabilization of the kidneys before performing left heart catheter. Patient is currently stable from a pain standpoint. (4) CKD (chronic kidney disease) stage 4, GFR 15-29 ml/min Current Visit: Yes Status: Chronic Assessment and plan: The patient has discussed with family regarding dialysis. While she is sick and tired of being sick and tired at this time she is willing to proceed with dialysis if it is absolutely necessary. Enthusiastic, however does recognize it may represent horribly chance. She does state that if it does not work and she is "done" at this time she is willing to consider dialysis, I have notified nephrology is amenable to proceeding with that if they recommend. I did note today that her GFR is unchanged from yesterday and this may represent the beginning of a plateau. (5) Left arm weakness Current Visit: Yes Status: Resolved Assessment and plan: The patient had no complaint of dropping things, today and her human resources manager strength is equal both hands today. Continue to watch (the head MRI was unremarkable with regards left-hand side weakness. The neck MRI while not normal show any definite pathology that would account for this weakness. (6) Goals of care, counseling/discussion Current Visit: Yes Status: Acute Assessment and plan: After discussion with the patient she wishes to be DNR CCA DNI. Does not wish to be maintained on machines although she is willing to consider dialysis. She would not want to be intubated and does not want to be maintained on a ventilator. She admits to being sick and tired of being sick and tired. Change her CODE STATUS per her wishes. Regarding dialysis the patient is willing to consider it, para yesterday she was extremely tentative she is less so today however she is not enthusiastic about it. Wishes to proceed if it is absolutely necessary. I have assured her that nephrology will not recommend unless it is is absolutely necessary. Desire to do dialysis did lead us to the discussion of CODE STATUS after being described to her she has quested our CCA DNI status as already described. He does have a medical power of regulatory attorney this is her niece Lynda Mak cell phone number [phone] or the patient she has discussed with her niece her wishes and desires. Her niece and her stands what she wants, and has the paperwork for the MPOA her possession. There is no copy on the medical record however. Patient does currently live alone and her ultimate goal is to return home to live with her cats. He was able to get around well and take care of herself well prior to her shoulder surgery in the ensuing MA. Palliative-CN HPI - Data of Consult Patient: new to practice Requesting Physician: Williams Monroy DO Primary Care Provider: Tawana Quintero CNP - Consult Narrative Palliative Care/Comfort Measures: Palliative care History of present illness: Ms. Andres is a 73 year old female Who suffered a non-ST elevation [place] shortly after having had shoulder surgery. She was readmitted to the hospital found to be anemic and also found to have a small GI bleed addressed by surgery she does have a history of chronic kidney disease and has acute kidney disease first Deponit from oncology has been following in the hope was that the kidney function would plateau, however it has appeared that he continues to decline the patient is deciding whether or not she would be okay with dialysis. That reason nephrology asked us to get involved to help with the discussion. Please see the assessment and plan At this time the patient states that she has a poor appetite, focal to swallowing and persistent nausea. She did have chest pain on admission but has not had any in the last 48 hours. No vomiting but there is the nausea and noted she is moving her bowels he is having pain in her right shoulder but this is eating better per the patient he has been having some difficulty moving her left hand and holding items. That seems to be better today. At this time the pain is an achy pain right shoulder more than a 5/10 does not radiate worse with movement and better with rest. CC: Williams Monroy, DO Non-ST elevation [place], with renal failure Past Med Surg Social Fam HX - Past Medical History Medical history: coronary artery disease, diabetes, GERD, hyperlipidemia, hypertension, myocardial infarction, renal disease Psychiatric history: no psych history - Past Surgical History Surgical History: coronary bypass (CABG), orthopedic, other (Shoulder scope), other (EGD 2010, colonoscopy greater than 10 year ago) - Social History Smoking Status: Unknown if ever smoked Smokeless Tobacco Status: No Alcohol use: none Drug use: none - Family History Father Living Status: Age at : 89 Cause of : [place] Hx Family Cardiac Disorders: Yes (CAD, [place]) Mother Living Status: Age at : 67 Cause of : DM, [place] Hx Family Cardiac Disorders: Yes (CAD) Hx Family Endocrine Disorder: Yes (DMII, kidney problems) Medications and Allergies Insulin NPH Hum/Reg Insulin Hm [Novolin 70-30 100 Unit/ml Vial] 12 unit SQ QPM 07/31/16 [History] Insulin NPH Hum/Reg Insulin Hm [Novolin 70-30 100 Unit/ml Vial] 22 unit SQ QAM 07/31/16 [History] Metoprolol [Lopressor] 12.5 mg PO BID 07/31/16 [History] Ranitidine HCl [Heartburn Relief] 150 mg PO BID 07/31/16 [History] Ergocalciferol (VITAMIN D2) [Vitamin D2 (50,000 UNIT)] 50,000 unit PO Q14D 08/01 [History] Rosuvastatin [Crestor] 40 mg PO HS #30 tablet 08/02/16 [Rx] Furosemide [Lasix] 20 mg PO DAILY 01/25/18 [History] Nitroglycerin [Nitrostat] 0.4 mg SL Q5M PRN 01/25/18 [History] 3 Allergy/AdvReac Type Severity Reaction Status Date / Time codeine Allergy Rash Verified 06/27/15 13:40 losartan [From Cozaar] Allergy See Verified 08/01/16 11:26 Comments lisinopril AdvReac Cough Verified 08/01/16 11:26 promethazine [From Phenergan] AdvReac Confusion Verified 02/02/18 14:46 All systems: reviewed and no additional remarkable complaints except as stated ( As noted in the history of present illness. She does have diabetes.) Palliative Care-Exam - Constitutional Vitals: Temp Pulse Resp BP Pulse Ox 97.6 F 89 18 154/68 89 02/08/18 08:16 02/08/18 08:16 02/08/18 08:16 02/08/18 08:16 02/08/18 08:16 General appearance: Present: no acute distress - Head Head Exam: Present: atraumatic, normal inspection - Eye Eye exam: Present: normal appearance - Respiratory Respiratory exam: Present: CTAB - GI/Abdominal Exam GI/Abdominal exam: Present: normal bowel sounds, soft. Absent: tenderness - Catheter Type: Urethral ([place]) - Extremities Exam Extremities exam: Present: pedal edema. Absent: normal inspection, tenderness - Neurological Exam Neurological exam: Present: alert, oriented X3, strengths equal and symetr throughout (Patient's human resources manager strength left hand and right hand feel about the same to me.) - Psychiatric Psychiatric exam: Absent: agitated, anxious - Skin Skin exam: Present: dry, warm Internal Medicine - CN: Reslt - Labs CBC & Chem 7: 02/08/18 06:52 02/08/18 05:10 Labs: Short CBC 02/08/18 Range/Units 06:52 WBC 8.6 (4.3-11.1) K/mcL Hgb 8.1 L (11.5-15.4) g/dL Hct 25.8 L (35.3-44.9) % Plt Count 192 (140-400) K/mcL BMP 02/08/18 05:10 Sodium 136 Potassium 4.8 Chloride 105 Carbon Dioxide 22 L BUN 66 H Creatinine 5.66 H Glucose 228 H Calcium 8.5 L - ABG Interpretation ABG results: PT/INR, D-dimer PT 14.1 Seconds (9.4-12.1) H 01/30/18 12:05 Consult Discharge Plan - Plan Instructions: Heart Failure (DC), Chest Pain (DC), Diabetes Mellitus Type 2 in Adults (DC), Chronic Hypertension (DC), Pneumonia (DC), Joint Replacement Surgery, Housekeeper Child Care (GEN) Referrals: Tawana Quintero, [employer] JOURNALIST [Primary Care Provider] - Palliative Quality Palliative Quality: Screen for Code Status: Yes, Screen for Goals of Care: Yes, Screen for Pain: Yes, If Pain Regimen Started, Initiate Bowel Regimen: Yes, Screen for Nausea/Vomitting: Yes
[2018-02-08] MEDS: Aspirin 81 MG TAB.CHEW PO SCH (09:20)
[2018-02-08] MEDS: Cholecalciferol (D-3) 1,000 UNIT TABLET PO SCH (09:26)
[2018-02-08] MEDS: Famotidine 20 MG TABLET PO SCH (09:27)
[2018-02-08] MEDS: Insulin NPH/REG 70/30 100 UNIT/ML (x5UNIT) SQ SCH ×3 (09:27→16:48)
[2018-02-08] MEDS: Insulin LISPRO 300 UNITS/3 ML VIAL SQ SCH ×4 (09:31→21:18)
[2018-02-08 10:17] LABS: INR 1.1; Prothrombin Time 11.7 Seconds (9.4-12.1)
--- NOTE | 2018-02-08 10:37 | Internal Med Progress Note ---
<Anastacio Oscar - Last Filed: 02/08/18 13:44> Date of Encounter: 02/08/18 Time of Encounter: 10:35 - Assessment and plan (1) Acute renal failure due to tubular necrosis Current Visit: Yes Status: Suspected Assessment and plan: Cr remained stable today and may indicate a plateau. Palliative care was consulted yesterday to discuss goals of therapy. Patient has agreed to temporary HD. Nephrology plans to HD today. - appreciate nephrology and palliative care input - continue to monitor I/O (2) Coronary artery disease Current Visit: Yes Status: Chronic Assessment and plan: Reconsulted Cardio. They will coordinate cath with nephrology. - cardiology is considering starting on dig prior to [facility] Qualifiers: Coronary Disease-Associated Artery/Lesion type: bypass graft [place] vs. transplanted heart: [place] heart Associated angina: without angina Qualified Code(s): I25.810 - Atherosclerosis of coronary artery bypass graft(s) without angina pectoris (3) CKD (chronic kidney disease) stage 4, GFR 15-29 ml/min Current Visit: Yes Status: Chronic Assessment and plan: Chronic issue (4) NSTEMI (non-ST elevated myocardial infarction) Current Visit: Yes Status: Acute Assessment and plan: Pt admitted with chest pain and troponins elevated c/w acute NSTEMI. - cardio reconsulted (5) Anemia Current Visit: Yes Status: Suspected Assessment and plan: Following. currently stable at 8.1 with no signs of bleeding Qualifiers: Anemia type: due to chronic kidney disease Chronic kidney disease stage: stage 4 (severe) Qualified Code(s): N18.4 - Chronic kidney disease, stage 4 ( severe); D63.1 - Anemia in chronic kidney disease; D63.1 - Anemia in chronic kidney disease (6) Type 2 diabetes mellitus with diabetic nephropathy, with long-term current use of insulin Current Visit: Yes Status: Chronic Assessment and plan: Continue follow sugars. (7) Essential hypertension Current Visit: Yes Status: Chronic Assessment and plan: Controlled at this time. (8) Ventilator associated pneumonia Current Visit: Yes Status: Resolved Assessment and plan: Abx completed. (9) DVT prophylaxis Current Visit: Yes Status: Acute Assessment and plan: On heparin sq (10) Goals of care, counseling/discussion Current Visit: Yes Status: Acute Assessment and plan: Palliative care was consulted. Status changed to DNR/DNI/CCA. Patient has agreed to do temp HD. - appreciate palliative care's input. - per recommendations will add on benadryl and reglan for nausea and abd pain - Time Spent With Patient Total time spent is greater than 50% in coordination of care (as documented) at patient's floor/unit and/or counseling patient: - Subjective Interval history: Patient is seen and examined. Patient had a discussion with Palliative care, and has now agreed to do HD and has changed status to DNR/DNI/CCA. Patient reports feeling "ok" today. Patient reports she just wants this "over with". She report arm tightness, left hsoulder pain but denies SOB, CP, N/V, f/c. All other ROS is negative - Constitutional Vitals: Temp Pulse Resp BP Pulse Ox 97.6 F 89 18 154/68 89 02/08/18 08:16 02/08/18 08:16 02/08/18 08:16 02/08/18 08:16 02/08/18 08:16 General appearance: Present: cooperative, A&O X 3, pleasant, no acute distress, obese, answers questions appropriately - Head Head exam: Present: atraumatic, normocephalic - Neck Neck exam general surgery: Present: supple - Respiratory Respiratory exam: Present: prolonged expiratory phase, wheezes (diffuse wheezing ) - GI/Abdominal GI/Abdominal exam: Present: normal bowel sounds - Extremities Exam Extremities exam: Present: pedal edema (3+ BLE) Internal Medicine: Result - Labs CBC & Chem 7: 02/08/18 06:52 02/08/18 05:10 Labs: Short CBC 02/08/18 Range/Units 06:52 WBC 8.6 (4.3-11.1) K/mcL Hgb 8.1 L (11.5-15.4) g/dL Hct 25.8 L (35.3-44.9) % Plt Count 192 (140-400) K/mcL BMP 02/08/18 05:10 Sodium 136 Potassium 4.8 Chloride 105 Carbon Dioxide 22 L BUN 66 H Creatinine 5.66 H Glucose 228 H Calcium 8.5 L - ABG Interpretation ABG results: PT/INR, D-dimer PT 11.7 Seconds (9.4-12.1) 02/08/18 09:58 - VTE Reasons for not Prescribing Prophylaxis: Medical contraindication (Anemia, Suspected GI Bleed) Documentation of Mechanical Device: Intermittent pneumatic compression device Consult Discharge Plan - Plan Instructions: Heart Failure (DC), Chest Pain (DC), Diabetes Mellitus Type 2 in Adults (DC), Chronic Hypertension (DC), Pneumonia (DC), Joint Replacement Surgery, Margin Analyst (GEN) Referrals: Tawana Quintero, BLUEPRINTER [Primary Care Provider] - <Williams Monroy - Last Filed: 02/08/18 18:27> Date of Encounter: 02/08/18 - Assessment and plan (1) Acute renal failure due to tubular necrosis Current Visit: Yes Status: Suspected (2) Coronary artery disease Current Visit: Yes Status: Chronic Qualifiers: Coronary Disease-Associated Artery/Lesion type: bypass graft [place] vs. transplanted heart: [place] heart Associated angina: without angina Qualified Code(s): I25.810 - Atherosclerosis of coronary artery bypass graft(s) without angina pectoris (3) Type 2 diabetes mellitus with diabetic nephropathy, with long-term current use of insulin Current Visit: Yes Status: Chronic (4) Essential hypertension Current Visit: Yes Status: Chronic (5) DVT prophylaxis Current Visit: Yes Status: Acute (6) NSTEMI (non-ST elevated myocardial infarction) Current Visit: Yes Status: Acute (7) Anemia Current Visit: Yes Status: Suspected Qualifiers: Anemia type: due to chronic kidney disease Chronic kidney disease stage: stage 4 (severe) Qualified Code(s): N18.4 - Chronic kidney disease, stage 4 ( severe); D63.1 - Anemia in chronic kidney disease; D63.1 - Anemia in chronic kidney disease (8) CKD (chronic kidney disease) stage 4, GFR 15-29 ml/min Current Visit: Yes Status: Chronic (9) Goals of care, counseling/discussion Current Visit: Yes Status: Acute - Time Spent With Patient Total time spent is greater than 50% in coordination of care (as documented) at patient's floor/unit and/or counseling patient: - Constitutional Vitals: Temp Pulse Resp BP Pulse Ox 97.8 F 79 18 151/66 99 02/08/18 15:57 02/08/18 15:57 02/08/18 15:57 02/08/18 15:57 02/08/18 15:57 Internal Medicine: Result - Labs CBC & Chem 7: 02/08/18 06:52 02/08/18 05:10 Labs: Short CBC 02/08/18 Range/Units 06:52 WBC 8.6 (4.3-11.1) K/mcL Hgb 8.1 L (11.5-15.4) g/dL Hct 25.8 L (35.3-44.9) % Plt Count 192 (140-400) K/mcL BMP 02/08/18 05:10 Sodium 136 Potassium 4.8 Chloride 105 Carbon Dioxide 22 L BUN 66 H Creatinine 5.66 H Glucose 228 H Calcium 8.5 L - ABG Interpretation ABG results: PT/INR, D-dimer PT 11.7 Seconds (9.4-12.1) 02/08/18 09:58 - Impressions Impressions Guidance Needle Placement Ultrasound 02/08/18 00:00 IMPRESSION: Successful ultrasound guided non-tunneled dialysis catheter placement. D/ / 02/08/2018 17:03:47 Esteban Amor MD / Libby Melvin Interpreting Provider: Esteban Amor MD Insertion Non-Tunneled Catheter 02/08/18 00:00 IMPRESSION: Successful ultrasound guided non-tunneled dialysis catheter placement. D/ / 02/08/2018 17:03:47 Esteban Amor MD / Libby Melvin Interpreting Provider: Esteban Amor MD Chest X-Ray 02/08/18 13:55 IMPRESSION: CHF with increased right pleural effusion and basilar volume loss. Central line tip in the SVC with no pneumothorax . D/ / Christian Lowe MD / Christian Lowe MD Interpreting Provider: Christian Lowe MD - Attending Attestation I examined this patient and my medical decision-making was reviewed with the Resident Physician on 02/08/18. I agree with the documented findings, disposition and treatment plan as described except to the extent set forth below. Ms Andres is currently admitted for acute NSTEMI and renal failure. She remains moderate to high risk due to potential for worsening clinical status. Ms Andres is to start dialysis today. No CP. Swollen. Some dyspnea. Appetite fair. Exam Alert Mild distress Mucus membranes dry Heart distant Lungs diminished Abd soft Edema present I/P 1. NSTEMI 2. ATN - starting dialysis today. Further diagnoses and plan as above.
--- NOTE | 2018-02-08 12:49 | Nephrology Progress Note ---
Date of Encounter: 02/08/18 Time of Encounter: 12:48 - Assessment and Plan (1) Acute kidney injury superimposed on CKD Current Visit: Yes Status: Acute Wall I was hopeful that her renal function would recover secondary to her not being oliguric renal function started to worsen over the last few days and the patient became more swollen and is now orthopneic and her edema is uncomfortable. I consult with palliative care they have had a conversation and the patient is willing to start dialysis. The patient was seen on dialysis I spoke with the primary team who will consult cardiology to reevaluate the patient for cardiac catheterization I will start Mucomyst in anticipation of cardiac catheterization At this time it is unclear if the patient will need to be discharged with dialysis. (2) Constipation Current Visit: Yes Status: Acute Fiber therapy. Qualifiers: Qualified Code(s): K59.00 - Constipation, unspecified Subjective Principal diagnosis: chest pain Interval history: Patient seen. She thinks her shortness of breath is worsening and she is frustrated with getting short of breath when she lies down flat. She has spoken with Dr. Saucedo and wants to start dialysis. Objective - Vital Signs Vital signs: Vital Signs Temp Pulse Resp BP Pulse Ox 02/08/18 11:05 97.8 F 83 18 150/60 100 02/08/18 08:16 97.6 F 89 18 154/68 89 02/08/18 05:40 98.4 F 81 22 157/73 97 02/07/18 21:00 99.4 F 86 19 146/62 100 02/07/18 15:39 97.7 F 85 20 155/61 100 Intake and Output 02/07/18 02/08/18 02/08/18 23:59 07:59 15:59 Intake Total 120 / 120 0 / 0 120 / 120 Output Total 400 / 400 350 / 350 100 / 100 Balance -280 / -280 -350 / -350 20 / 20 Intake: Oral 120 / 120 0 / 0 120 / 120 Output: Urine 200 / 200 350 / 350 100 / 100 Catheter 200 / 200 Other: Meal Breakfast Percent of Meal Consumed 5% Stool Size Small Stool Consistency soft formed Weight 75.6 kg Blood Glucose* 166 261 296 Patient Weight 02/08/18 23:59 Weight 75.6 kg - General Appearance General appearance: Present: well-developed, well-nourished Cardiology: Present: edema, regular rate - Lab 04/11/18 06:52 02/08/18 05:10 Most recent lab results Calcium 8.5 mg/dL (8.6-10.3) L 02/08/18 05:10 Magnesium 1.9 mg/dL (1.6-2.6) 02/06/18 04:56 Urine Creatinine 52 mg/dL 02/03/18 07:25 - VTE Reasons for not Prescribing Prophylaxis: Medical contraindication (Anemia, Suspected GI Bleed) Documentation of Mechanical Device: Intermittent pneumatic compression device Consult Discharge Plan - Plan Instructions: Heart Failure (DC), Chest Pain (DC), Diabetes Mellitus Type 2 in Adults (DC), Chronic Hypertension (DC), Pneumonia (DC), Joint Replacement Surgery, Brazing Furnace Feeder (GEN) Referrals: Tawana Quintero CNP [Primary Care Provider] -
[2018-02-08] MEDS ORDERED: 0.9 % Sodium Chloride 250 ML IVC PRN (13:28)
[2018-02-08] MEDS ORDERED: 0.9 % Sodium Chloride 1,000 ML PRIME SCH (13:30)
[2018-02-08] MEDS: Metoclopramide 10 MG/2 ML VIAL IVP SCH ×3 (13:30→23:19)
[2018-02-08] MEDS ORDERED: *HR* Heparin 5,000 UNIT/ML VIAL ONE (13:34)
--- NOTE | 2018-02-08 14:26 | Cardiology Progress Note ---
Date of Encounter: 02/08/18 Time of Encounter: 14:24 Assessment and Plan (1) NSTEMI (non-ST elevated myocardial infarction) Current Visit: Yes Status: Acute Concern for NSTEMI on admission. 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 Reported nausea, diaphoresis, SOB. Troponin, 0.03, 0.71, 5.22, 8.76, 8.03 Initial EKG with depression in lateral leads. TTE: LVEF 55%, mild- moderate MR, moderate- severe TR, severe pulmonary hypertension, RVSP 70-75mmHg. Hgb stable LHC recommended once stale from renal standpoint. Cardiology re-consulted today d/t patient starting dialysis. On exam patient in significant fluid overload and is unable to lay flat. She has not started dialysis yet. Suspect fluid removal with dialysis. Will re-evaluate after dialysis. (2) Anemia Current Visit: Yes Status: Suspected Anemia concerning for GI bleed during stay. Hgb stable. Recieved one unit PRBC . 01/29/2018 EGD: demonstrated small angiodysplasia in fundus. Biopsies and cauterization. Per discussion with surgery previously, heparin may be continued and LHC performed. Qualifiers: Anemia type: due to chronic kidney disease Chronic kidney disease stage: stage 4 (severe) Qualified Code(s): N18.4 - Chronic kidney disease, stage 4 ( severe); D63.1 - Anemia in chronic kidney disease; D63.1 - Anemia in chronic kidney disease (3) CKD (chronic kidney disease) Current Visit: Yes Status: Acute History of CKD, patient of Dr. Sharp. now ESRD. Starting dialysis today. Qualifiers: Chronic kidney disease stage: unspecified stage Qualified Code(s): N18.9 - Chronic kidney disease, unspecified Discussion w patient/family: The assessment and plan as outlined above was discussed with the patient and/or family members who expressed understanding and agreement. All questions were answered. Thank you for involving us in the care of your patient. Please call with any questions. Subjective Principal diagnosis: chest pain Interval history: Ms. Andres is s/p right IJ dialysis catheter. Objective Vital Signs, Last 4 Hours Temp Pulse Resp BP Pulse Ox 02/08/18 11:05 97.8 F 83 18 150/60 100 General: Conversant, Other (ill appearing) HEENT: Atraumatic, Normocephaly, Mucus Membranes Moist Neck: Normal carotid pulses Cardiac: Reg Rate and Rhythm, Normal S1 and S2, No Murmur, Other (SR with PVC) Lungs: Other (Lung sounds diminished) Neuro: Alert and responsive, No focal deficits noted Abdomen: Soft, Non-Tender Skin: No rashes noted on visualized skin, Other (pale) Musculoskeletal: No Chest Wall Tenderness Extremities: No Clubbing, No Cyanosis, Normal Pulses, Other (2-3 + BLE edema. ) Results 02/08/18 06:52 02/08/18 05:10 Lab Results 02/08/18 02/08/18 02/08/18 05:10 06:52 09:58 WBC 8.6 Hgb 8.1 L Hct 25.8 L Plt Count 192 INR 1.1 Sodium 136 Potassium 4.8 Chloride 105 Carbon Dioxide 22 L BUN 66 H Creatinine 5.66 H Glucose 228 H Calcium 8.5 L - Imaging and Cardiology Echo: report reviewed - EKG Interpretation EKG results cardiology: personally reviewed - VTE Reasons for not Prescribing Prophylaxis: Medical contraindication (Anemia, Suspected GI Bleed) Documentation of Mechanical Device: Intermittent pneumatic compression device Consult Discharge Plan - Plan Instructions: Heart Failure (DC), Chest Pain (DC), Diabetes Mellitus Type 2 in Adults (DC), Chronic Hypertension (DC), Pneumonia (DC), Joint Replacement Surgery, Assistance Specialist (GEN) Referrals: Tawana Quintero, EVALUATOR TRANSFER STUDENTS [Primary Care Provider] -
[2018-02-08 14:28] LABS: Hepatitis B Surface Antibody 0.04 mIU/mL; Hepatitis B Surface Antigen Nonreactive (Nonreactive)
--- NOTE | 2018-02-08 14:47 | IR Procedure Note ---
Date of procedure: 02/08/18 Consent Obtained: Verbal consent, Written consent Timeout: Correct patient and procedure verified, Correct site verified, Time out performed, Skin prep completed Local anesthetic: Lidocaine 1% Indications: ARF Procedure Performed: temp HDC placement Was there an itinerant teacher assistant present: No Estimated blood loss (cc): 1 Complications: None; Tolerated procedure well Post Procedure Treatment Plan: CXR Specimen: none
[2018-02-08] MEDS: OXYCODONE Oral CONC 10 MG/0.5 ML ORAL.SYG SL PRN (23:19)
[2018-02-09] MEDS: Acetaminophen 325 MG TABLET PO PRN (02:07)
[2018-02-09 06:05] LABS: Hematocrit 24.2 % (35.3-44.9); Hemoglobin 7.5 g/dL (11.5-15.4); Mean Corpuscular Volume 96.8 fL (83.0-100.0); Mean Platelet Volume 11.9 fL (9.4-12.4); Platelet Count 192 K/mcL (140-400); Red Cell Distribution Width 14.9 % (11.5-14.5)
[2018-02-09 06:23] LABS: Calcium 8.3 mg/dL (8.6-10.3)
[2018-02-09] MEDS: *HR* Heparin 5,000 UNIT/ML VIAL SQ SCH ×2 (06:38→16:51)
[2018-02-09] MEDS ORDERED: 0.9 % Sodium Chloride 250 ML IVC PRN (07:24)
[2018-02-09] MEDS ORDERED: *HR* Heparin 10,000 UNIT/10 ML VIAL IV PRN (07:24)
[2018-02-09] MEDS ORDERED: 0.9 % Sodium Chloride 1,000 ML PRIME SCH (07:30)
[2018-02-09] MEDS ORDERED: 0.9 % Sodium Chloride 1,000 ML ONE (07:33)
[2018-02-09] MEDS: *HR* Acetylcysteine 20% 600 MG/3 ML ORAL SYRINGE PO SCH ×2 (08:21→20:11)
[2018-02-09] MEDS: Metoclopramide 10 MG/2 ML VIAL IVP SCH ×2 (08:22→08:24)
[2018-02-09] MEDS: Famotidine 20 MG TABLET PO SCH (08:22)
[2018-02-09] MEDS: Insulin NPH/REG 70/30 100 UNIT/ML (x5UNIT) SQ SCH ×2 (08:23→16:51)
[2018-02-09] MEDS: Cholecalciferol (D-3) 1,000 UNIT TABLET PO SCH (08:23)
[2018-02-09] MEDS: Aspirin 81 MG TAB.CHEW PO SCH (08:23)
[2018-02-09] MEDS: Insulin LISPRO 300 UNITS/3 ML VIAL SQ SCH ×4 (08:25→23:25)
[2018-02-09] MEDS: *HR* LORazepam 0.5 MG TABLET PO PRN (09:01)
--- NOTE | 2018-02-09 11:32 | Nephrology Progress Note ---
Addendum entered and electronically signed by Roslyn Grimaldo CNP 02/09/18 13: 14: Sodium Bicarb d/alice managed with HD. Iron Studies ordered. Consult to Finish Repair Worker re: chair time for [facility]. Original Note: Date of Encounter: 02/09/18 Time of Encounter: 11:29 - Assessment and Plan (1) Acute kidney injury superimposed on CKD Current Visit: Yes Status: Acute Currently requiring HD on consecutive day 2. Plan for HD day 3 tomorrow. If patient requires HD upon discharge she prefers [facility]. Renal diet ordered. Avoid nephrotoxins. (2) NSTEMI (non-ST elevated myocardial infarction) Current Visit: Yes Status: Acute Per cadiology team. (3) Anemia Current Visit: Yes Status: Suspected Hgb 7.5 goal is 10-11. Transfuse per parameters. Qualifiers: Anemia type: due to chronic kidney disease Chronic kidney disease stage: stage 4 (severe) Qualified Code(s): N18.4 - Chronic kidney disease, stage 4 ( severe); D63.1 - Anemia in chronic kidney disease; D63.1 - Anemia in chronic kidney disease Subjective Principal diagnosis: chest pain Interval history: Patient seen and examined in dialysis. States she is feeling well and breathing better. Objective - Vital Signs Vital signs: Vital Signs Temp Pulse Resp BP Pulse Ox 02/09/18 11:00 141/62 02/09/18 10:45 134/53 02/09/18 10:30 136/56 02/09/18 10:15 138/52 02/09/18 10:00 143/59 02/09/18 09:45 145/56 02/09/18 09:30 163/63 02/09/18 09:15 97.3 F L 18 166/71 02/09/18 07:21 98.1 F 87 17 157/68 99 02/09/18 04:15 98.3 F 77 15 138/52 100 02/08/18 23:17 99.1 F 80 16 138/43 97 02/08/18 21:28 100 02/08/18 19:30 97.9 F 18 142/79 02/08/18 19:15 149/53 02/08/18 19:00 97.7 F 8 16 136/64 95 02/08/18 18:45 146/51 02/08/18 18:30 139/53 02/08/18 18:15 142/59 02/08/18 18:00 146/57 02/08/18 17:45 149/62 02/08/18 17:30 149/60 02/08/18 17:15 98.3 F 20 159/57 02/08/18 15:57 97.8 F 79 18 151/66 99 Intake and Output 02/08/18 02/09/18 02/09/18 23:59 07:59 15:59 Intake Total 720 / 720 0 / 0 720 / 720 Output Total 2600 / 2600 100 / 100 100 / 100 Balance -1880 / -1880 -100 / -100 620 / 620 Intake: Oral 120 / 120 0 / 0 120 / 120 Intake, Rinseback and Flushes 600 / 600 600 / 600 Output: Urine 0 / 0 100 / 100 100 / 100 Total Dialysis (HD) Output 2600 / 2600 Other: Percent of Meal Consumed 25% Stool Size Small Stool Consistency formed Weight 72.4 kg Blood Glucose* 90 278 Hemodialysis Net Fluid Removed 1999 1826 (mL) Patient Weight 02/09/18 23:59 Weight 72.4 kg - General Appearance General appearance: Present: well-developed, well-nourished, appears started age EENT: Present: ATNC, mucous membranes moist, hearing intact, vision intact Neck: Present: supple Respiratory: Present: clear Cardiology: Present: edema, normal S1, normal S2 Dialysis Vascular Access: Venous Catheter Gastrointestinal: Present: normoactive bowel sounds Integumentary: Present: warm and dry Neurologic: Present: alert and oriented x3 Psychiatric: Present: mood/affect appropriate, cooperative - Lab 02/09/18 05:42 02/09/18 05:42 Most recent lab results Calcium 8.3 mg/dL (8.6-10.3) L 02/09/18 05:42 Magnesium 1.9 mg/dL (1.6-2.6) 02/06/18 04:56 Urine Creatinine 52 mg/dL 02/03/18 07:25 - VTE Reasons for not Prescribing Prophylaxis: Medical contraindication (Anemia, Suspected GI Bleed) Documentation of Mechanical Device: Intermittent pneumatic compression device Consult Discharge Plan - Plan Instructions: Heart Failure (DC), Chest Pain (DC), Diabetes Mellitus Type 2 in Adults (DC), Chronic Hypertension (DC), Pneumonia (DC), Joint Replacement Surgery, Bench Assembler (GEN) Referrals: Tawana Quintero, ROAD ROLLER OPERATOR [employer] [Primary Care Provider] -
[2018-02-09 14:24] LABS: % Iron Saturation 18 % (15-50); Iron 52 mcg/dL (50-170); Transferrin 201 mg/dL (203-362)
--- NOTE | 2018-02-09 15:26 | Internal Med Progress Note ---
<Anastacio Oscar - Last Filed: 02/09/18 15:14> Date of Encounter: 02/09/18 Time of Encounter: 08:30 - Assessment and plan (1) Acute renal failure due to tubular necrosis Current Visit: Yes Status: Suspected Assessment and plan: Patient has agreed to temporary HD. Nephrology plans to HD yesterday, today, and most likely tomorrow. - appreciate nephrology and palliative care input - continue to monitor I/O - (2) Coronary artery disease Current Visit: Yes Status: Chronic Assessment and plan: Reconsulted Cardio. They will coordinate cath with nephrology. - cardiology is considering starting on dig prior to [facility] Qualifiers: Coronary Disease-Associated Artery/Lesion type: bypass graft [place] vs. transplanted heart: [place] heart Associated angina: without angina Qualified Code(s): I25.810 - Atherosclerosis of coronary artery bypass graft(s) without angina pectoris (3) Type 2 diabetes mellitus with diabetic nephropathy, with long-term current use of insulin Current Visit: Yes Status: Chronic Assessment and plan: Continue follow sugars. (4) Essential hypertension Current Visit: Yes Status: Chronic Assessment and plan: Controlled at this time. (5) DVT prophylaxis Current Visit: Yes Status: Acute Assessment and plan: On heparin sq (6) NSTEMI (non-ST elevated myocardial infarction) Current Visit: Yes Status: Acute Assessment and plan: Pt admitted with chest pain and troponins elevated c/w acute NSTEMI. - cardio reconsulted (7) Anemia Current Visit: Yes Status: Suspected Assessment and plan: Following. currently stable at 8.1 with no signs of bleeding Qualifiers: Anemia type: due to chronic kidney disease Chronic kidney disease stage: stage 4 (severe) Qualified Code(s): N18.4 - Chronic kidney disease, stage 4 ( severe); D63.1 - Anemia in chronic kidney disease; D63.1 - Anemia in chronic kidney disease (8) CKD (chronic kidney disease) stage 4, GFR 15-29 ml/min Current Visit: Yes Status: Chronic Assessment and plan: Chronic issue (9) Goals of care, counseling/discussion Current Visit: Yes Status: Acute Assessment and plan: Palliative care was consulted. Status changed to DNR/DNI/CCA. Patient has agreed to do temp HD. - appreciate palliative care's input. - Time Spent With Patient Total time spent is greater than 50% in coordination of care (as documented) at patient's floor/unit and/or counseling patient: - Subjective Interval history: Patient is seen and examined. Patient received HD yesterday, and was stable. Denies nausea, vomiting or hypotension after HD. Patient feels a lot better after receiving HD. pain but denies SOB, CP, N/V, f/c. All other ROS is negative. - Constitutional Vitals: Temp Pulse Resp BP Pulse Ox 98.1 F 85 19 157/66 100 02/09/18 12:00 02/09/18 12:00 02/09/18 12:00 02/09/18 12:00 02/09/18 12:00 General appearance: Present: cooperative, A&O X 3, pleasant, no acute distress, obese, answers questions appropriately - Respiratory Respiratory exam: Present: rhonchi - Cardiovascular Cardiovascular exam: Present: RRR - Extremities Exam Extremities exam: Present: pedal edema (2+) Internal Medicine: Result - Labs CBC & Chem 7: 02/09/18 05:42 02/09/18 05:42 Labs: Short CBC 02/09/18 Range/Units 05:42 WBC 7.8 (4.3-11.1) K/mcL Hgb 7.5 L (11.5-15.4) g/dL Hct 24.2 L (35.3-44.9) % Plt Count 192 (140-400) K/mcL BMP 02/09/18 05:42 Sodium 137 Potassium 5.0 Chloride 104 Carbon Dioxide 26 BUN 46 H Creatinine 4.41 H Glucose 237 H Calcium 8.3 L - ABG Interpretation ABG results: PT/INR, D-dimer PT 11.7 Seconds (9.4-12.1) 02/08/18 09:58 - Impressions Impressions Guidance Needle Placement Ultrasound 02/08/18 00:00 IMPRESSION: Successful ultrasound guided non-tunneled dialysis catheter placement. D/ / 02/08/2018 17:03:47 Esteban Amor MD / Libby Melvin Interpreting Provider: Esteban Amor MD Insertion Non-Tunneled Catheter 02/08/18 00:00 IMPRESSION: Successful ultrasound guided non-tunneled dialysis catheter placement. D/ / 02/08/2018 17:03:47 Esteban Amor MD / Libby Melvin Interpreting Provider: Esteban Amor MD - VTE Reasons for not Prescribing Prophylaxis: Medical contraindication (Anemia, Suspected GI Bleed) Documentation of Mechanical Device: Intermittent pneumatic compression device Consult Discharge Plan - Plan Instructions: Heart Failure (DC), Chest Pain (DC), Diabetes Mellitus Type 2 in Adults (DC), Chronic Hypertension (DC), Pneumonia (DC), Joint Replacement Surgery, Software Validation Engineer (GEN) Referrals: Tawana Quintero ROVING CHANGER [Primary Care Provider] - <Williams Monroy - Last Filed: 02/09/18 19:52> Date of Encounter: 02/09/18 - Assessment and plan (1) Acute renal failure due to tubular necrosis Current Visit: Yes Status: Suspected (2) Coronary artery disease Current Visit: Yes Status: Chronic Qualifiers: Coronary Disease-Associated Artery/Lesion type: bypass graft [place] vs. transplanted heart: [place] heart Associated angina: without angina Qualified Code(s): I25.810 - Atherosclerosis of coronary artery bypass graft(s) without angina pectoris (3) Type 2 diabetes mellitus with diabetic nephropathy, with long-term current use of insulin Current Visit: Yes Status: Chronic (4) Essential hypertension Current Visit: Yes Status: Chronic (5) DVT prophylaxis Current Visit: Yes Status: Acute (6) NSTEMI (non-ST elevated myocardial infarction) Current Visit: Yes Status: Resolved (7) Anemia Current Visit: Yes Status: Suspected Qualifiers: Anemia type: due to chronic kidney disease Chronic kidney disease stage: stage 4 (severe) Qualified Code(s): N18.4 - Chronic kidney disease, stage 4 ( severe); D63.1 - Anemia in chronic kidney disease; D63.1 - Anemia in chronic kidney disease (8) CKD (chronic kidney disease) stage 4, GFR 15-29 ml/min Current Visit: Yes Status: Chronic (9) Goals of care, counseling/discussion Current Visit: Yes Status: Acute - Time Spent With Patient Total time spent is greater than 50% in coordination of care (as documented) at patient's floor/unit and/or counseling patient: - Constitutional Vitals: Temp Pulse Resp BP Pulse Ox 98.8 F 84 20 141/57 100 02/09/18 19:10 02/09/18 19:10 02/09/18 19:10 02/09/18 19:10 02/09/18 19:10 Internal Medicine: Result - Labs CBC & Chem 7: 02/09/18 05:42 02/09/18 05:42 Labs: Short CBC 02/09/18 Range/Units 05:42 WBC 7.8 (4.3-11.1) K/mcL Hgb 7.5 L (11.5-15.4) g/dL Hct 24.2 L (35.3-44.9) % Plt Count 192 (140-400) K/mcL BMP 02/09/18 05:42 Sodium 137 Potassium 5.0 Chloride 104 Carbon Dioxide 26 BUN 46 H Creatinine 4.41 H Glucose 237 H Calcium 8.3 L - ABG Interpretation ABG results: PT/INR, D-dimer PT 11.7 Seconds (9.4-12.1) 02/08/18 09:58 - Impressions Impressions Guidance Needle Placement Ultrasound 02/08/18 00:00 IMPRESSION: Successful ultrasound guided non-tunneled dialysis catheter placement. D/ / 02/08/2018 17:03:47 Esteban Amor MD / Libby Melvin Interpreting Provider: Esteban Amor MD Insertion Non-Tunneled Catheter 02/08/18 00:00 IMPRESSION: Successful ultrasound guided non-tunneled dialysis catheter placement. D/ / 02/08/2018 17:03:47 Esteban Amor MD / Libby Melvin Interpreting Provider: Esteban Amor MD - Attending Attestation I examined this patient and my medical decision-making was reviewed with the Resident Physician on 02/09/18. I agree with the documented findings, disposition and treatment plan as described except to the extent set forth below. Ms Andres has been admitted for NSTEMI and ASHLEY. She has been started on dialysis. She remains moderate to high risk due to potential for worsening clinical status. Ms Andres is doing better with starting dialysis. No fever or chills. Less edema now. No CP. Appetite OK. Exam Alert Comfortable Mucus membranes dry Heart reg Crackles heard Abd soft I/P 1 NSTEMI 2. ATN Further diagnoses and plan as above.
[2018-02-10 04:49] LABS: Basophils % 0.6 %; Eosinophils # 0.3 K/mcL (0.0-0.6); Eosinophils % 4.3 %; Hematocrit 23.5 % (35.3-44.9); Hemoglobin 7.2 g/dL (11.5-15.4); Immature Granulocytes % 0.4 % (0-4); Lymphocytes # 0.8 K/mcL (0.6-4.6); Lymphocytes % 11.3 %; Mean Corpuscular HGB Conc 30.6 g/dL (31.6-35.5); Mean Corpuscular Hemoglobin 29.8 pg (28.0-33.3); Mean Corpuscular Volume 97.1 fL (83.0-100.0); Mean Platelet Volume 11.9 fL (9.4-12.4); Monocytes % 14.2 %; Neutrophils # 4.8 K/mcL (1.6-8.9); Platelet Count 202 K/mcL (140-400); Red Blood Count 2.42 M/mcL (3.82-4.97); Red Cell Distribution Width 14.9 % (11.5-14.5); Segmented Neutrophils % 69.2 %
[2018-02-10 05:09] LABS: Albumin 2.7 g/dL (3.5-5.7); Bilirubin,Total 0.3 mg/dL (0.3-1.0); Calcium 8.3 mg/dL (8.6-10.3); Globulin 2.7 g/dL (2.4-3.5); Potassium 4.4 mEq/L (3.5-5.1); Total Protein 5.4 g/dL (6.4-8.9)
[2018-02-10] MEDS: *HR* Heparin 5,000 UNIT/ML VIAL SQ SCH ×2 (05:14→17:00)
[2018-02-10] MEDS ORDERED: 0.9 % Sodium Chloride 250 ML IVC PRN (07:46)
[2018-02-10] MEDS ORDERED: *HR* Heparin 10,000 UNIT/10 ML VIAL IV PRN (07:46)
--- NOTE | 2018-02-10 07:55 | Palliative Progress Note ---
Date of Encounter: 02/10/18 Time of Encounter: 07:20 - Assessment and plan (1) Nausea and vomiting Current Visit: Yes Status: Acute Assessment and plan: Much improved on current meds and dialysis. Did have 1 episode last night but this was posttussive. Continue to watch Qualifiers: Vomiting type: unspecified Vomiting Intractability: non-intractable Qualified Code(s): R11.2 - Nausea with vomiting, unspecified (2) Ventilator associated pneumonia Current Visit: Yes Status: Resolved Assessment and plan: Antibiotics have been completed. (3) NSTEMI (non-ST elevated myocardial infarction) Current Visit: Yes Status: Resolved Assessment and plan: No further chest pain, patient is awaiting stability of left heart catheter after the kidneys are stabilized cardiology is following (4) CKD (chronic kidney disease) stage 4, GFR 15-29 ml/min Current Visit: Yes Status: Chronic Assessment and plan: Tolerating dialysis well. Still has some urine output does feel better after having been dialyzed. (5) Left arm weakness Current Visit: Yes Status: Resolved Assessment and plan: No complaints of this morning. (6) Goals of care, counseling/discussion Current Visit: Yes Status: Acute Assessment and plan: Status well-established DNR CCA DNI. However the patient is still interested in testing treatment if it will benefit her. He is however sick and tired of being sick and tired and is made this very clear. Patient has unfortunately been through a great deal recently, this is all acute and potentially could be pulled through. At this time I do not feel the patient meets hospice criteria except if she were to stop the dialysis and the function did not return. Negative is following at a distance. Patient's nausea is improved on the current medications continue to follow, however as already noted from a distance. - Time Spent With Patient Total time spent is greater than 50% in coordination of care (as documented) at patient's floor/unit and/or counseling patient: - Subjective Interval history: The patient states she is tolerating dialysis quite well. Feels that her breathing is better, uptight is better, having less nausea. Did have one small bout of nausea last night after coughing real hard. Otherwise she is doing quite well. She feels that the swelling in her legs is also going down. - Constitutional Vitals: Abnormal lab results RBC 2.42 M/mcL (3.82-4.97) L 02/10/18 03:52 Hgb 7.2 g/dL (11.5-15.4) L 02/10/18 03:52 Hct 23.5 % (35.3-44.9) L 02/10/18 03:52 MCHC 30.6 g/dL (31.6-35.5) L 02/10/18 03:52 RDW 14.9 % (11.5-14.5) H 02/10/18 03:52 Immature Plt Fraction 7.6 % (1.1-6.1) H 02/07/18 04:17 APTT 97.5 Seconds (26.0-36.0) H 02/01/18 11:18 BUN 28 mg/dL (8-23) H 02/10/18 03:52 Creatinine 3.61 mg/dL (0.60-1.20) H 02/10/18 03:52 Est GFR ( Amer) 15 (> 60) L 02/10/18 03:52 Est GFR (Non-Af Amer) 12 (> 60) L 02/10/18 03:52 Glucose 106 mg/dL (70-105) H 02/10/18 03:52 POC Glucose 214 mg/dL (70-99) H 02/09/18 16:16 Uric Acid 8.2 mg/dL (2.3-7.6) H 01/31/18 12:27 Calcium 8.3 mg/dL (8.6-10.3) L 02/10/18 03:52 Transferrin 201 mg/dL (203-362) L 02/09/18 13:32 Alkaline Phosphatase 110 Units/L (34-104) H 02/10/18 03:52 Troponin I 0.75 ng/mL (< 0.04) H* 02/02/18 19:25 Serum Total Protein 5.4 g/dL (6.4-8.9) L 02/10/18 03:52 Albumin 2.7 g/dL (3.5-5.7) L 02/10/18 03:52 Albumin/Globulin Ratio 1.0 (1.1-2.2) L 02/10/18 03:52 Folate 20.0 ng/mL (3.0-16.0) H 02/09/18 13:32 Urine Clarity Cloudy (Clear) A 01/31/18 04:15 Urine Protein 100 mg/dL (Neg-Trace) H 01/31/18 04:15 Urine Ketones Trace mg/dL (Negative) H 01/31/18 04:15 Urine Blood Moderate (Negative) H 01/31/18 04:15 Ur Squamous Epith Cells Many per lpf (None-Few) H 01/31/18 04:15 Microalb/Creat Ratio 269 mcg/mg (Less than 30) H 02/03/18 07:25 Stool Occult Blood Positive (Negative) A 01/26/18 19:48 Complement C4 47 mg/dL (10-40) H 02/02/18 04:24 General appearance: Present: no acute distress - Respiratory Respiratory exam: Present: decreased breath sounds - Cardiovascular Cardiovascular exam: Present: RRR - GI/Abdominal GI/Abdominal exam: Present: normal bowel sounds, soft. Absent: tenderness - Extremities Exam Extremities exam: Present: normal inspection, pedal edema. Absent: tenderness - Neurological Exam Neurological exam: Present: alert, oriented X3 - Psychiatric Psychiatric exam: Absent: agitated, anxious - Skin Skin exam: Present: dry, warm Palliative Quality Palliative Quality: Screen for Code Status: Yes, Screen for Goals of Care: Yes, Screen for Pain: Yes, If Pain Regimen Started, Initiate Bowel Regimen: Yes, Screen for Nausea/Vomitting: Yes Code Status: 01/26/18 05:29 Resuscitation Status: Active [RES] Routine Comment: Resuscitation Status: [id number] - Labs CBC & Chem 7: 02/10/18 03:52 02/10/18 03:52 Labs: Laboratory Results - last 24 hr 02/09/18 02/09/18 02/09/18 07:23 12:05 13:32 WBC RBC Hgb Hct MCV MCH MCHC RDW Plt Count MPV Immature Gran % Seg Neutrophils % Lymphocytes % Monocytes % Eosinophils % Basophils % Neutrophils # Lymphocytes # Monocytes # Eosinophils # Basophils # Sodium Potassium Chloride Carbon Dioxide BUN Creatinine Est GFR ( Amer) Est GFR (Non-Af Amer) BUN/Creatinine Ratio Glucose POC Glucose 278 H 153 H Calculated Osmolality Calcium Iron % Saturation Transferrin Total Bilirubin AST ALT Alkaline Phosphatase Serum Total Protein Albumin Globulin Albumin/Globulin Ratio Vitamin B12 808 Folate 20.0 H 04/10/1702/09/18 02/10/18 13:32 16:16 03:52 WBC 6.9 RBC 2.42 L Hgb 7.2 L Hct 23.5 L MCV 97.1 MCH 29.8 MCHC 30.6 L RDW 14.9 H Plt Count 202 MPV 11.9 Immature Gran % 0.4 Seg Neutrophils % 69.2 Lymphocytes % 11.3 Monocytes % 14.2 Eosinophils % 4.3 Basophils % 0.6 Neutrophils # 4.8 Lymphocytes # 0.8 Monocytes # 1.0 Eosinophils # 0.3 Basophils # 0.0 Sodium Potassium Chloride Carbon Dioxide BUN Creatinine Est GFR ( Amer) Est GFR (Non-Af Amer) BUN/Creatinine Ratio Glucose POC Glucose 214 H Calculated Osmolality Calcium Iron 52 % Saturation 18 Transferrin 201 L Total Bilirubin AST ALT Alkaline Phosphatase Serum Total Protein Albumin Globulin Albumin/Globulin Ratio Vitamin B12 Folate 02/10/18 03:52 WBC RBC Hgb Hct MCV MCH MCHC RDW Plt Count MPV Immature Gran % Seg Neutrophils % Lymphocytes % Monocytes % Eosinophils % Basophils % Neutrophils # Lymphocytes # Monocytes # Eosinophils # Basophils # Sodium 139 Potassium 4.4 Chloride 104 Carbon Dioxide 27 BUN 28 H Creatinine 3.61 H Est GFR ( Amer) 15 L Est GFR (Non-Af Amer) 12 L BUN/Creatinine Ratio 8 Glucose 106 H POC Glucose Calculated Osmolality 294 Calcium 8.3 L Iron % Saturation Transferrin Total Bilirubin 0.3 AST 28 ALT 43 Alkaline Phosphatase 110 H Serum Total Protein 5.4 L Albumin 2.7 L Globulin 2.7 Albumin/Globulin Ratio 1.0 L Vitamin B12 Folate - Impressions Impressions Guidance Needle Placement Ultrasound 02/08/18 00:00 IMPRESSION: Successful ultrasound guided non-tunneled dialysis catheter placement. D/ / 02/08/2018 17:03:47 Esteban Amor MD / Libby Melvin Interpreting Provider: Esteban Amor MD Insertion Non-Tunneled Catheter 02/08/18 00:00 IMPRESSION: Successful ultrasound guided non-tunneled dialysis catheter placement. D/ / 02/08/2018 17:03:47 Esteban Amor MD / Libby Melvin Interpreting Provider: Esteban Amor MD - ABG Interpretation ABG results: PT/INR, D-dimer PT 11.7 Seconds (9.4-12.1) 02/08/18 09:58 Consult Discharge Plan - Plan Instructions: Heart Failure (DC), Chest Pain (DC), Diabetes Mellitus Type 2 in Adults (DC), Chronic Hypertension (DC), Pneumonia (DC), Joint Replacement Surgery, Permit Coordinator (GEN) Referrals: Tawana Quintero, ASSOCIATE PROJECT MANAGER [Primary Care Provider] -
[2018-02-10] MEDS ORDERED: 0.9 % Sodium Chloride 1,000 ML PRIME SCH (08:00)
[2018-02-10] MEDS ORDERED: 0.9 % Sodium Chloride 1,000 ML ONE (08:12)
[2018-02-10] MEDS: Aspirin 81 MG TAB.CHEW PO SCH (08:13)
[2018-02-10] MEDS: *HR* LORazepam 0.5 MG TABLET PO PRN (08:13)
[2018-02-10] MEDS: Insulin NPH/REG 70/30 100 UNIT/ML (x5UNIT) SQ SCH ×2 (08:14→17:00)
[2018-02-10] MEDS: Famotidine 20 MG TABLET PO SCH (08:14)
[2018-02-10] MEDS: *HR* Acetylcysteine 20% 600 MG/3 ML ORAL SYRINGE PO SCH ×2 (08:14→21:19)
[2018-02-10] MEDS: Cholecalciferol (D-3) 1,000 UNIT TABLET PO SCH (08:14)
[2018-02-10] MEDS: Insulin LISPRO 300 UNITS/3 ML VIAL SQ SCH ×4 (08:18→21:18)
--- NOTE | 2018-02-10 09:51 | Internal Med Progress Note ---
<Anastacio Oscar - Last Filed: 02/10/18 16:06> Date of Encounter: 02/10/18 Time of Encounter: 09:49 - Assessment and plan (1) Coronary artery disease Current Visit: Yes Status: Chronic Assessment and plan: Reconsulted Cardio. They will coordinate with nephrology for [facility]. - cardiology is considering starting on dig prior to [facility] - appreciate Cardio's recommendation - will not go to cath today Qualifiers: Coronary Disease-Associated Artery/Lesion type: bypass graft [place] vs. transplanted heart: [place] heart Associated angina: without angina Qualified Code(s): I25.810 - Atherosclerosis of coronary artery bypass graft(s) without angina pectoris (2) Type 2 diabetes mellitus with diabetic nephropathy, with long-term current use of insulin Current Visit: Yes Status: Chronic Assessment and plan: Continue follow sugars. (3) Essential hypertension Current Visit: Yes Status: Chronic Assessment and plan: Controlled at this time. (4) DVT prophylaxis Current Visit: Yes Status: Acute Assessment and plan: On heparin sq (5) NSTEMI (non-ST elevated myocardial infarction) Current Visit: Yes Status: Resolved Assessment and plan: Pt admitted with chest pain and troponins elevated c/w acute NSTEMI. - cardio reconsulted (6) Anemia Current Visit: Yes Status: Suspected Assessment and plan: Following. currently stable at 8.1 with no signs of bleeding Qualifiers: Anemia type: due to chronic kidney disease Chronic kidney disease stage: stage 4 (severe) Qualified Code(s): N18.4 - Chronic kidney disease, stage 4 ( severe); D63.1 - Anemia in chronic kidney disease; D63.1 - Anemia in chronic kidney disease (7) CKD (chronic kidney disease) stage 4, GFR 15-29 ml/min Current Visit: Yes Status: Chronic Assessment and plan: Chronic issue (8) Acute renal failure due to tubular necrosis Current Visit: Yes Status: Suspected Assessment and plan: Patient has agreed to temporary HD. HD from last 3 days has removed 7800 mL of fluid. - appreciate nephrology and palliative care input - continue to monitor I/O - nephro is planning on another session of HD today (9) Goals of care, counseling/discussion Current Visit: Yes Status: Acute Assessment and plan: Palliative care was consulted. Status changed to DNR/DNI/CCA. Patient has agreed to do temp HD. - appreciate palliative care's input. - Time Spent With Patient Total time spent is greater than 50% in coordination of care (as documented) at patient's floor/unit and/or counseling patient: - Subjective Interval history: Patient is seen and examined. Patient received HD again yesterday, and was stable. continues to symptomatically improve with HD. pain but denies SOB, CP , N/V, f/c. All other ROS is negative. - Constitutional Vitals: Temp Pulse Resp BP Pulse Ox 98.2 F 102 16 146/82 93 02/10/18 06:55 02/10/18 06:55 02/10/18 06:55 02/10/18 06:55 02/10/18 06:55 General appearance: Present: cooperative, A&O X 3, pleasant, no acute distress, obese, answers questions appropriately - Head Head exam: Present: normal inspection - ENT ENT exam: Present: mucous membranes moist - Respiratory Respiratory exam: Present: CTAB - Cardiovascular Cardiovascular exam: Present: RRR - GI/Abdominal GI/Abdominal exam: Present: hypoactive bowel sounds Internal Medicine: Result - Labs CBC & Chem 7: 02/10/18 03:52 02/10/18 03:52 Labs: Short CBC 02/10/18 Range/Units 03:52 WBC 6.9 (4.3-11.1) K/mcL Hgb 7.2 L (11.5-15.4) g/dL Hct 23.5 L (35.3-44.9) % Plt Count 202 (140-400) K/mcL Neutrophils # 4.8 (1.6-8.9) K/mcL BMP 02/10/18 03:52 Sodium 139 Potassium 4.4 Chloride 104 Carbon Dioxide 27 BUN 28 H Creatinine 3.61 H Glucose 106 H Calcium 8.3 L Liver Function 02/10/18 Range/Units 03:52 Total Bilirubin 0.3 (0.3-1.0) mg/dL AST 28 (13-39) Units/L ALT 43 (7-52) Units/L Alkaline Phosphatase 110 H (34-104) Units/L Albumin 2.7 L (3.5-5.7) g/dL - ABG Interpretation ABG results: PT/INR, D-dimer PT 11.7 Seconds (9.4-12.1) 02/08/18 09:58 - VTE Reasons for not Prescribing Prophylaxis: Medical contraindication (Anemia, Suspected GI Bleed) Documentation of Mechanical Device: Intermittent pneumatic compression device Consult Discharge Plan - Plan Instructions: Heart Failure (DC), Chest Pain (DC), Diabetes Mellitus Type 2 in Adults (DC), Chronic Hypertension (DC), Pneumonia (DC), Joint Replacement Surgery, Stripper [place] (GEN) Referrals: Tawana Quintero, CABIN AGENT [Primary Care Provider] - <Williams Monroy - Last Filed: 02/10/18 19:55> Date of Encounter: 02/10/18 - Assessment and plan (1) Acute renal failure due to tubular necrosis Current Visit: Yes Status: Suspected (2) Coronary artery disease Current Visit: Yes Status: Chronic Qualifiers: Coronary Disease-Associated Artery/Lesion type: bypass graft [place] vs. transplanted heart: [place] heart Associated angina: without angina Qualified Code(s): I25.810 - Atherosclerosis of coronary artery bypass graft(s) without angina pectoris (3) Type 2 diabetes mellitus with diabetic nephropathy, with long-term current use of insulin Current Visit: Yes Status: Chronic (4) Essential hypertension Current Visit: Yes Status: Chronic (5) DVT prophylaxis Current Visit: Yes Status: Acute (6) NSTEMI (non-ST elevated myocardial infarction) Current Visit: Yes Status: Resolved (7) Anemia Current Visit: Yes Status: Suspected Qualifiers: Anemia type: due to chronic kidney disease Chronic kidney disease stage: stage 4 (severe) Qualified Code(s): N18.4 - Chronic kidney disease, stage 4 ( severe); D63.1 - Anemia in chronic kidney disease; D63.1 - Anemia in chronic kidney disease (8) CKD (chronic kidney disease) stage 4, GFR 15-29 ml/min Current Visit: Yes Status: Chronic (9) Goals of care, counseling/discussion Current Visit: Yes Status: Acute - Time Spent With Patient Total time spent is greater than 50% in coordination of care (as documented) at patient's floor/unit and/or counseling patient: - Constitutional Vitals: Temp Pulse Resp BP Pulse Ox 99.2 F 99 16 137/54 98 02/10/18 17:05 02/10/18 17:05 02/10/18 17:05 02/10/18 17:05 02/10/18 17:05 Internal Medicine: Result - Labs CBC & Chem 7: 02/10/18 03:52 02/10/18 03:52 Labs: Short CBC 02/10/18 Range/Units 03:52 WBC 6.9 (4.3-11.1) K/mcL Hgb 7.2 L (11.5-15.4) g/dL Hct 23.5 L (35.3-44.9) % Plt Count 202 (140-400) K/mcL Neutrophils # 4.8 (1.6-8.9) K/mcL BMP 02/10/18 03:52 Sodium 139 Potassium 4.4 Chloride 104 Carbon Dioxide 27 BUN 28 H Creatinine 3.61 H Glucose 106 H Calcium 8.3 L Liver Function 02/10/18 Range/Units 03:52 Total Bilirubin 0.3 (0.3-1.0) mg/dL AST 28 (13-39) Units/L ALT 43 (7-52) Units/L Alkaline Phosphatase 110 H (34-104) Units/L Albumin 2.7 L (3.5-5.7) g/dL - ABG Interpretation ABG results: PT/INR, D-dimer PT 11.7 Seconds (9.4-12.1) 02/08/18 09:58 - Attending Attestation I examined this patient and my medical decision-making was reviewed with the Resident Physician on 02/10/18. I agree with the documented findings, disposition and treatment plan as described except to the extent set forth below. Ms Andres is currently admitted for NSTEMI and renal failure. She remains moderate to high risk due to potential for worsening clinical status. Ms Andres is doing OK. She is tolerating dialysis and feeling better. Less edema. No GI issues. Exam alert Comfortable Mucus membranes dry Heart reg No wheeze Edema improving I/P 1. NSTEMI 2. Renal failure Further diagnoses and plan as above.
--- NOTE | 2018-02-10 14:06 | Cardiology Progress Note ---
Date of Encounter: 02/10/18 Time of Encounter: 11:00 Assessment and Plan (1) NSTEMI (non-ST elevated myocardial infarction) Current Visit: Yes Status: Resolved Concern for NSTEMI on admission. 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 Reported nausea, diaphoresis, SOB. Troponin, 0.03, 0.71, 5.22, 8.76, 8.03 Initial EKG with depression in lateral leads. TTE: LVEF 55%, mild- moderate MR, moderate- severe TR, severe pulmonary hypertension, RVSP 70-75mmHg. Hgb stable LHC recommended once stable. S/p dialysis x2 and repeat dialysis for today. Continues to have fluid overload and unable to lay flat. Also noted Hgb trending down. May need PRBC. Discussed with primary team. We will re-evaluate readiness for LHC on Tuesday. No LHC today. (2) Anemia Current Visit: Yes Status: Suspected Anemia concerning for GI bleed during stay. Hgb stable. Recieved one unit PRBC . 01/29/2018 EGD: demonstrated small angiodysplasia in fundus. Biopsies and cauterization. Per discussion with surgery previously, heparin may be continued and LHC performed. Now Hgb is trending down. Managment per primary team. Qualifiers: Anemia type: due to chronic kidney disease Chronic kidney disease stage: stage 4 (severe) Qualified Code(s): N18.4 - Chronic kidney disease, stage 4 ( severe); D63.1 - Anemia in chronic kidney disease; D63.1 - Anemia in chronic kidney disease (3) CKD (chronic kidney disease) Current Visit: Yes Status: Acute History of CKD. Followed by [facility]. Dialysis started during stay. Qualifiers: Chronic kidney disease stage: unspecified stage Qualified Code(s): N18.9 - Chronic kidney disease, unspecified Discussion w patient/family: The assessment and plan as outlined above was discussed with the patient and/or family members who expressed understanding and agreement. All questions were answered. Thank you for involving us in the care of your patient. Please call with any questions. Subjective Principal diagnosis: chest pain Interval history: Ms. Andres is sitting in her chair this morning. She was helped back to bed and layed flat. Unable to tolerate for more than 5 min due to SOB. Objective Vital Signs, Last 4 Hours Temp Resp BP 02/10/18 12:48 156/61 02/10/18 12:45 152/62 02/10/18 12:30 160/75 02/10/18 12:15 143/58 02/10/18 12:00 144/58 02/10/18 11:45 151/55 02/10/18 11:30 139/57 02/10/18 11:15 141/47 02/10/18 11:00 159/59 02/10/18 10:45 159/68 02/10/18 10:30 158/47 02/10/18 10:15 98.4 F 18 151/55 General: Conversant, No Apparent Distress HEENT: Atraumatic, Normocephaly, Mucus Membranes Moist Neck: No JVD, Normal carotid pulses Cardiac: Reg Rate and Rhythm, Normal S1 and S2, No Murmur Lungs: Normal Breath Sounds, No Wheeze, Rales, Rhonchi, Other (Bases diminished. ) Neuro: Alert and responsive, No focal deficits noted Abdomen: Soft, Non-Tender Skin: No rashes noted on visualized skin Musculoskeletal: No Chest Wall Tenderness Extremities: No Clubbing, No Cyanosis, Normal Pulses, Other (1+ edema in BLE ) Results 02/10/18 03:52 02/10/18 03:52 Lab Results 02/10/18 02/10/18 03:52 03:52 WBC 6.9 Hgb 7.2 L Hct 23.5 L Plt Count 202 Sodium 139 Potassium 4.4 Chloride 104 Carbon Dioxide 27 BUN 28 H Creatinine 3.61 H Glucose 106 H Calcium 8.3 L Total Bilirubin 0.3 AST 28 ALT 43 Alkaline Phosphatase 110 H - EKG Interpretation EKG results cardiology: personally reviewed - VTE Reasons for not Prescribing Prophylaxis: Medical contraindication (Anemia, Suspected GI Bleed) Documentation of Mechanical Device: Intermittent pneumatic compression device Consult Discharge Plan - Plan Instructions: Heart Failure (DC), Chest Pain (DC), Diabetes Mellitus Type 2 in Adults (DC), Chronic Hypertension (DC), Pneumonia (DC), Joint Replacement Surgery, Induction Machine Setter (GEN) Referrals: Tawana Quintero, ROOFER APPRENTICE [Primary Care Provider] -
[2018-02-10] MEDS: Benzonatate 100 MG CAPSULE PO PRN (14:26)
--- NOTE | 2018-02-10 16:24 | Nephrology Progress Note ---
Date of Encounter: 02/10/18 Time of Encounter: 15:00 - Assessment and Plan (1) Acute kidney injury superimposed on CKD Status: Acute Continue HD day #3 with UF as tolerated, will continue to monitor for signs or renal recovery and if not, will place permcath and place in outpatient HD facility UOP documented at 136cc in the past 24hrs Continue to avoid nephrotoxins if possible (2) CKD (chronic kidney disease) stage 4, GFR 15-29 ml/min Status: Chronic Baseline GFR typically in the 20s and on occasion up to 30 Subjective Principal diagnosis: chest pain Interval history: Pt seen and examined with interim events noted now receiving HD with 2 consecutive treatments already done Objective - Vital Signs Vital signs: Vital Signs Temp Pulse Resp BP Pulse Ox 02/10/18 14:38 98.7 F 93 16 136/54 100 02/10/18 14:13 98.7 F 91 16 139/64 02/10/18 13:30 97.5 F L 20 155/58 02/10/18 13:15 153/50 02/10/18 13:00 156/61 02/10/18 12:45 152/62 02/10/18 12:30 160/75 02/10/18 12:15 143/58 02/10/18 12:00 144/58 02/10/18 11:45 151/55 02/10/18 11:30 139/57 02/10/18 11:15 141/47 02/10/18 11:00 159/59 02/10/18 10:45 159/68 02/10/18 10:30 158/47 02/10/18 10:15 98.4 F 18 151/55 02/10/18 06:55 98.2 F 102 16 146/82 93 02/10/18 04:09 99.2 F 81 17 141/61 100 02/09/18 23:46 98.6 F 83 21 141/89 98 02/09/18 20:19 100 02/09/18 19:10 98.8 F 84 20 141/57 100 02/09/18 17:24 98.4 F Intake and Output 02/10/18 02/10/18 02/10/18 07:59 15:59 23:59 Intake Total 150 / 150 840 / 840 Output Total 125 / 125 2650 / 2650 Balance -1810 / -1810 Intake: Oral 150 / 150 240 / 240 Blood Product 0 / 0 Rbcs Leuko Poor As-1 Unit 0 / 0 [id number] Intake, Rinseback and Flushes 600 / 600 Output: Urine 125 / 125 50 / 50 Total Dialysis (HD) Output 2600 / 2600 Other: Meal Breakfast Percent of Meal Consumed 75% Weight 72.9 kg Blood Glucose* 160 Hemodialysis Net Fluid Removed 2000 (mL) Patient Weight 02/10/18 23:59 Weight 72.9 kg - General Appearance General appearance: Present: frail EENT: Present: ATNC, mucous membranes moist Neck: Present: no JVD, supple Additional Comments: Good areation ant bilat Cardiology: Present: edema, normal S1, normal S2 Dialysis Vascular Access: Venous Catheter (temp IJ) Gastrointestinal: Present: no tenderness, no guarding Integumentary: Present: warm and dry Neurologic: Present: no focal deficit Musculoskeletal: Present: no deformities Psychiatric: Present: mood/affect appropriate, cooperative - Lab 02/21/18 05:23 02/21/18 05:23 Most recent lab results Calcium 8.3 mg/dL (8.6-10.3) L 02/10/18 03:52 Magnesium 1.9 mg/dL (1.6-2.6) 02/06/18 04:56 Urine Creatinine 52 mg/dL 02/03/18 07:25 - VTE Reasons for not Prescribing Prophylaxis: Medical contraindication (Anemia, Suspected GI Bleed) Documentation of Mechanical Device: Intermittent pneumatic compression device Consult Discharge Plan - Plan Instructions: Heart Failure (DC), Chest Pain (DC), Diabetes Mellitus Type 2 in Adults (DC), Chronic Hypertension (DC), Pneumonia (DC), Joint Replacement Surgery, Cage Unloader (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
[2018-02-11] MEDS: *HR* Heparin 5,000 UNIT/ML VIAL SQ SCH ×2 (04:46→17:44)
[2018-02-11 04:57] LABS: Hematocrit 26.6 % (35.3-44.9); Hemoglobin 8.5 g/dL (11.5-15.4); Mean Corpuscular Hemoglobin 30.5 pg (28.0-33.3); Mean Corpuscular Volume 95.3 fL (83.0-100.0); Mean Platelet Volume 11.7 fL (9.4-12.4); Platelet Count 182 K/mcL (140-400); Red Blood Count 2.79 M/mcL (3.82-4.97); Red Cell Distribution Width 15.6 % (11.5-14.5)
[2018-02-11] MEDS: *HR* LORazepam 0.5 MG TABLET PO PRN (05:31)
[2018-02-11 06:50] LABS: Calcium 8.2 mg/dL (8.6-10.3); Potassium 4.7 mEq/L (3.5-5.1)
[2018-02-11] MEDS: Ondansetron 4 MG/2 ML VIAL IVP PRN (08:19)
[2018-02-11] MEDS: Insulin LISPRO 300 UNITS/3 ML VIAL SQ SCH ×4 (08:24→21:25)
[2018-02-11] MEDS: Aspirin 81 MG TAB.CHEW PO SCH (10:27)
[2018-02-11] MEDS: Cholecalciferol (D-3) 1,000 UNIT TABLET PO SCH (10:27)
[2018-02-11] MEDS: Famotidine 20 MG TABLET PO SCH (10:28)
[2018-02-11] MEDS: *HR* Acetylcysteine 20% 600 MG/3 ML ORAL SYRINGE PO SCH ×2 (10:30→21:25)
[2018-02-11] MEDS: Insulin NPH/REG 70/30 100 UNIT/ML (x5UNIT) SQ SCH ×2 (10:31→17:39)
--- NOTE | 2018-02-11 11:22 | Internal Med Progress Note ---
<Anastacio Oscar - Last Filed: 02/11/18 13:17> Date of Encounter: 02/11/18 Time of Encounter: 09:00 - Assessment and plan (1) Acute renal failure due to tubular necrosis Current Visit: Yes Status: Suspected Assessment and plan: Patient has had 7.8 L removed in the last 3 days from HD. Nephro is not planning HD this weekend; and will reevaluate on Tuesday. Patient is tolerating HD well. - appreciate nephrology and palliative care input - continue to monitor I/O - avoid nephrotoxins - renal diet (2) Coronary artery disease Current Visit: Yes Status: Chronic Assessment and plan: Reconsulted Cardio. They will coordinate with nephrology for LHC. - cardiology is most likely planning LHC on tuesday - appreciate Cardio's recommendation Qualifiers: Coronary Disease-Associated Artery/Lesion type: bypass graft [place] vs. transplanted heart: [place] heart Associated angina: without angina Qualified Code(s): I25.810 - Atherosclerosis of coronary artery bypass graft(s) without angina pectoris (3) Type 2 diabetes mellitus with diabetic nephropathy, with long-term current use of insulin Current Visit: Yes Status: Chronic Assessment and plan: Continue follow sugars. (4) Essential hypertension Current Visit: Yes Status: Chronic Assessment and plan: Controlled at this time. (5) DVT prophylaxis Current Visit: Yes Status: Acute Assessment and plan: On heparin sq (6) NSTEMI (non-ST elevated myocardial infarction) Current Visit: Yes Status: Resolved Assessment and plan: Pt admitted with chest pain and troponins elevated c/w acute NSTEMI. - cardio reconsulted (7) Anemia Current Visit: Yes Status: Suspected Assessment and plan: Following. has improved to 8.5 today. Qualifiers: Anemia type: due to chronic kidney disease Chronic kidney disease stage: stage 4 (severe) Qualified Code(s): N18.4 - Chronic kidney disease, stage 4 ( severe); D63.1 - Anemia in chronic kidney disease; D63.1 - Anemia in chronic kidney disease (8) CKD (chronic kidney disease) stage 4, GFR 15-29 ml/min Current Visit: Yes Status: Chronic Assessment and plan: Chronic issue (9) Goals of care, counseling/discussion Current Visit: Yes Status: Acute Assessment and plan: Palliative care was consulted. Status changed to DNR/DNI/CCA. Patient has agreed to do temp HD. - appreciate palliative care's input. (10) Cough Current Visit: Yes Status: Acute Assessment and plan: most likely due to fluid status. Ordered CXR to further evaluate. - Time Spent With Patient Total time spent is greater than 50% in coordination of care (as documented) at patient's floor/unit and/or counseling patient: - Subjective Interval history: Patient is seen and examined. Patient received HD for the last 3 days and remained stable without cramps, nausea, vomiting, chest pain or shortness of breath. Patient does report of continued mild non-productive cough. All other ROS is negative. - Constitutional Vitals: Temp Pulse Resp BP Pulse Ox 98.5 F 89 16 151/89 96 02/11/18 06:45 02/11/18 06:45 02/11/18 06:45 02/11/18 06:45 02/11/18 06:45 General appearance: Present: cooperative, A&O X 3, pleasant, no acute distress, obese, answers questions appropriately - Head Head exam: Present: normal inspection - Respiratory Respiratory exam: Absent: wheezes - Extremities Exam Extremities exam: Present: pedal edema (1+ BLE - improved today) Internal Medicine: Result - Labs CBC & Chem 7: 02/11/18 04:45 02/11/18 04:45 Labs: Short CBC 02/11/18 Range/Units 04:45 WBC 6.0 (4.3-11.1) K/mcL Hgb 8.5 L (11.5-15.4) g/dL Hct 26.6 L (35.3-44.9) % Plt Count 182 (140-400) K/mcL BMP 02/11/18 04:45 Sodium 140 Potassium 4.7 Chloride 105 Carbon Dioxide 25 BUN 16 Creatinine 3.17 H Glucose 130 H Calcium 8.2 L - ABG Interpretation ABG results: PT/INR, D-dimer PT 11.7 Seconds (9.4-12.1) 02/08/18 09:58 - VTE Reasons for not Prescribing Prophylaxis: Medical contraindication (Anemia, Suspected GI Bleed) Documentation of Mechanical Device: Intermittent pneumatic compression device Consult Discharge Plan - Plan Instructions: Heart Failure (DC), Chest Pain (DC), Diabetes Mellitus Type 2 in Adults (DC), Chronic Hypertension (DC), Pneumonia (DC), Joint Replacement Surgery, Utility Assembler (GEN) Referrals: Tawana Quintero, PIN ATTACHER [Primary Care Provider] - <Williams Monroy - Last Filed: 02/11/18 18:48> Date of Encounter: 02/11/18 - Assessment and plan (1) Cough Current Visit: Yes Status: Acute (2) Acute renal failure due to tubular necrosis Current Visit: Yes Status: Suspected (3) Coronary artery disease Current Visit: Yes Status: Chronic Qualifiers: Coronary Disease-Associated Artery/Lesion type: bypass graft [place] vs. transplanted heart: [place] heart Associated angina: without angina Qualified Code(s): I25.810 - Atherosclerosis of coronary artery bypass graft(s) without angina pectoris (4) Type 2 diabetes mellitus with diabetic nephropathy, with long-term current use of insulin Current Visit: Yes Status: Chronic (5) Essential hypertension Current Visit: Yes Status: Chronic (6) DVT prophylaxis Current Visit: Yes Status: Acute (7) NSTEMI (non-ST elevated myocardial infarction) Current Visit: Yes Status: Resolved (8) Anemia Current Visit: Yes Status: Suspected Qualifiers: Anemia type: due to chronic kidney disease Chronic kidney disease stage: stage 4 (severe) Qualified Code(s): N18.4 - Chronic kidney disease, stage 4 ( severe); D63.1 - Anemia in chronic kidney disease; D63.1 - Anemia in chronic kidney disease (9) CKD (chronic kidney disease) stage 4, GFR 15-29 ml/min Current Visit: Yes Status: Chronic (10) Goals of care, counseling/discussion Current Visit: Yes Status: Acute - Time Spent With Patient Total time spent is greater than 50% in coordination of care (as documented) at patient's floor/unit and/or counseling patient: - Constitutional Vitals: Temp Pulse Resp BP Pulse Ox 98.6 F 76 16 148/97 96 02/11/18 15:52 02/11/18 15:52 02/11/18 15:52 02/11/18 15:52 02/11/18 15:52 Internal Medicine: Result - Labs CBC & Chem 7: 02/11/18 04:45 02/11/18 04:45 Labs: Short CBC 02/11/18 Range/Units 04:45 WBC 6.0 (4.3-11.1) K/mcL Hgb 8.5 L (11.5-15.4) g/dL Hct 26.6 L (35.3-44.9) % Plt Count 182 (140-400) K/mcL BMP 02/11/18 04:45 Sodium 140 Potassium 4.7 Chloride 105 Carbon Dioxide 25 BUN 16 Creatinine 3.17 H Glucose 130 H Calcium 8.2 L - ABG Interpretation ABG results: PT/INR, D-dimer PT 11.7 Seconds (9.4-12.1) 02/08/18 09:58 - Impressions Impressions Chest X-Ray 02/11/18 12:50 IMPRESSION: Redemonstration of large layering right pleural effusion not significantly changed from prior. Large opacity in the mid to upper lung zone on the left is becoming more defined. Probably loculated pleural effusion with or without underlying mass. D/ / Kenney Gomez MD / Kenney Gomez MD Interpreting Provider: Kenney Gomez MD - Attending Attestation I examined this patient and my medical decision-making was reviewed with the Resident Physician on 02/11/18. I agree with the documented findings, disposition and treatment plan as described except to the extent set forth below. Ms Andres is currently admitted for NSTEMI and renal failure. She remains moderate to high risk due to potential for worsening clinical and respiratory status. Ms Andres is having a lot of coughing today. No fever. Tolerating dialysis. Edema improving. No GI issues. Exam alert. Mod distress due to cough. Mucus membranes dry Heart distant Lungs with rales bilaterally Abd soft I/P 1. Cough - check CXR 2. NSTEMI Further diagnoses and plan as above.
--- NOTE | 2018-02-11 15:01 | Nephrology Progress Note ---
Date of Encounter: 02/11/18 Time of Encounter: 13:00 - Assessment and Plan (1) Acute kidney injury superimposed on CKD Status: Acute SCr improved at 3.17, GFR 14 after HD yesterday UOP noted at 175cc, will monitor for signs of renal recovery this weekend Continue to avoid nephrotoxins if possible Next HD planned tentatively for tuesday if no improvement (2) CKD (chronic kidney disease) stage 4, GFR 15-29 ml/min Status: Chronic GFR at baseline in the 20s up to 30 Subjective Principal diagnosis: chest pain Interval history: Pt seen and examined feels better today except for persistent dry cough Objective - Vital Signs Vital signs: Vital Signs Temp Pulse Resp BP Pulse Ox 02/11/18 06:45 98.5 F 89 16 151/89 96 02/11/18 03:22 162/72 02/11/18 03:09 98.5 F 85 18 172/70 98 02/11/18 03:05 83 145/64 02/10/18 23:17 99.7 F H 811 17 162/65 100 02/10/18 20:00 98.7 F 89 17 168/68 99 02/10/18 17:05 99.2 F 99 16 137/54 98 Intake and Output 02/10/18 02/11/18 02/11/18 23:59 07:59 15:59 Intake Total 960 / 960 100 / 100 140 / 140 Output Total 0 / 0 0 / 0 Balance 960 / 960 100 / 100 140 / 140 Intake: Oral 360 / 360 100 / 100 140 / 140 Blood Product 500 / 500 Rbcs Leuko Poor As-1 Unit 500 / 500 [id number] Other 100 / 100 Output: Urine 0 / 0 0 / 0 Other: Meal Dinner Breakfast Percent of Meal Consumed 0% 65% Stool Size Small Stool Consistency formed Stool Color Brown # Voids 1 # Bowel Movements 1 Weight 69.3 kg Blood Glucose* 74 213 291 Patient Weight 02/11/18 23:59 Weight 69.3 kg - General Appearance General appearance: Present: chronically ill, frail EENT: Present: ATNC, mucous membranes moist Neck: Present: no JVD, supple Respiratory: Present: course breath sounds Cardiology: Present: edema (LE improved bilat), normal S1, normal S2 Dialysis Vascular Access: Venous Catheter (temp IJ) Gastrointestinal: Present: no tenderness, no guarding Integumentary: Present: warm and dry Neurologic: Present: no focal deficit Musculoskeletal: Present: no deformities Psychiatric: Present: mood/affect appropriate, cooperative - Lab 02/21/18 05:23 02/21/18 05:23 Most recent lab results Calcium 8.2 mg/dL (8.6-10.3) L 02/11/18 04:45 Magnesium 1.9 mg/dL (1.6-2.6) 02/06/18 04:56 Urine Creatinine 52 mg/dL 02/03/18 07:25 - VTE Reasons for not Prescribing Prophylaxis: Medical contraindication (Anemia, Suspected GI Bleed) Documentation of Mechanical Device: Intermittent pneumatic compression device Consult Discharge Plan - Plan Instructions: Heart Failure (DC), Chest Pain (DC), Diabetes Mellitus Type 2 in Adults (DC), Chronic Hypertension (DC), Pneumonia (DC), Joint Replacement Surgery, 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
[2018-02-11] MEDS: Benzonatate 100 MG CAPSULE PO PRN (17:43)
[2018-02-12 03:36] LABS: Hematocrit 26.3 % (35.3-44.9); Hemoglobin 8.3 g/dL (11.5-15.4); Mean Corpuscular HGB Conc 31.6 g/dL (31.6-35.5); Mean Corpuscular Hemoglobin 30.4 pg (28.0-33.3); Mean Corpuscular Volume 96.3 fL (83.0-100.0); Mean Platelet Volume 11.4 fL (9.4-12.4); Platelet Count 179 K/mcL (140-400); Red Blood Count 2.73 M/mcL (3.82-4.97); Red Cell Distribution Width 15.2 % (11.5-14.5)
[2018-02-12 03:54] LABS: Calcium 8.2 mg/dL (8.6-10.3); Potassium 4.7 mEq/L (3.5-5.1)
[2018-02-12] MEDS: *HR* Heparin 5,000 UNIT/ML VIAL SQ SCH ×2 (05:16→16:58)
[2018-02-12] MEDS: *HR* LORazepam 0.5 MG TABLET PO PRN (07:17)
[2018-02-12] MEDS: Famotidine 20 MG TABLET PO SCH (08:26)
[2018-02-12] MEDS: Aspirin 81 MG TAB.CHEW PO SCH (08:26)
[2018-02-12] MEDS: Cholecalciferol (D-3) 1,000 UNIT TABLET PO SCH (08:26)
[2018-02-12] MEDS: *HR* Acetylcysteine 20% 600 MG/3 ML ORAL SYRINGE PO SCH ×2 (08:30→20:42)
[2018-02-12] MEDS: Insulin LISPRO 300 UNITS/3 ML VIAL SQ SCH ×4 (08:31→20:43)
[2018-02-12] MEDS: Insulin NPH/REG 70/30 100 UNIT/ML (x5UNIT) SQ SCH ×2 (08:33→16:29)
--- NOTE | 2018-02-12 09:49 | Event Note ---
Date of Encounter: 02/12/18 Time of Encounter: 09:30 Patient sleeping on my arrival, awakens easily. States she is tolerating dialysis well - awaiting heart cath. States nausea has improved and feels pretty well other than feeling tired. Palliative continues to follow from a distance.
[2018-02-12] MEDS: Benzonatate 100 MG CAPSULE PO PRN ×2 (11:00→20:41)
--- NOTE | 2018-02-12 11:44 | Internal Med Progress Note ---
<Anastacoi Oscar - Last Filed: 02/12/18 11:48> Date of Encounter: 02/12/18 Time of Encounter: 09:00 - Assessment and plan (1) Coronary artery disease Current Visit: Yes Status: Chronic Assessment and plan: Reconsulted Cardio. They will coordinate with nephrology for C. - cardiology is most likely planning C on tuesday - appreciate Cardio's recommendation Qualifiers: Coronary Disease-Associated Artery/Lesion type: bypass graft [place] vs. transplanted heart: [place] heart Associated angina: without angina Qualified Code(s): I25.810 - Atherosclerosis of coronary artery bypass graft(s) without angina pectoris (2) Type 2 diabetes mellitus with diabetic nephropathy, with long-term current use of insulin Current Visit: Yes Status: Chronic Assessment and plan: glu was elevated at 279 today, will continue to follow, if there is further increase, will increase SSI (3) Essential hypertension Current Visit: Yes Status: Chronic Assessment and plan: Controlled at this time. (4) DVT prophylaxis Current Visit: Yes Status: Acute Assessment and plan: On heparin sq (5) NSTEMI (non-ST elevated myocardial infarction) Current Visit: Yes Status: Resolved Assessment and plan: Pt admitted with chest pain and troponins elevated c/w acute NSTEMI. - cardio reconsulted (6) Anemia Current Visit: Yes Status: Suspected Assessment and plan: Following. remains stable at 8.3 today. Qualifiers: Anemia type: due to chronic kidney disease Chronic kidney disease stage: stage 4 (severe) Qualified Code(s): N18.4 - Chronic kidney disease, stage 4 ( severe); D63.1 - Anemia in chronic kidney disease; D63.1 - Anemia in chronic kidney disease (7) CKD (chronic kidney disease) stage 4, GFR 15-29 ml/min Current Visit: Yes Status: Chronic Assessment and plan: Chronic issue (8) Acute renal failure due to tubular necrosis Current Visit: Yes Status: Suspected Assessment and plan: Patient has had 7.8 L removed in 3 days from HD, last on tuesday. Nephro is not planning HD this weekend; and will reevaluate on Tuesday. Patient is tolerating HD well. Cr bumped up today to 4.55. - appreciate nephrology and palliative care input - continue to monitor I/O - avoid nephrotoxins - renal diet (9) Goals of care, counseling/discussion Current Visit: Yes Status: Acute Assessment and plan: Palliative care was consulted. Status changed to DNR/DNI/CCA. Patient has agreed to do temp HD. - appreciate palliative care's input. (10) Cough Current Visit: Yes Status: Acute Assessment and plan: most likely due to fluid status. CXR showed large opacities in left lung and loculated pleural effusions. - follow up CT ordered - Time Spent With Patient Total time spent is greater than 50% in coordination of care (as documented) at patient's floor/unit and/or counseling patient: - Subjective Interval history: Patient is seen and examined. Patient continues to report no nausea, or cramping. Patient states her cough has improved mildly. Patient denies CP, SOB. All other ROS is negative. - Constitutional Vitals: Temp Pulse Resp BP Pulse Ox 98.5 F 78 18 152/61 98 02/12/18 11:08 02/12/18 11:08 02/12/18 11:08 02/12/18 11:08 02/12/18 11:08 General appearance: Present: cooperative, A&O X 3, pleasant, no acute distress, obese, answers questions appropriately - ENT ENT exam: Present: mucous membranes dry - Respiratory Respiratory exam: Present: wheezes - Cardiovascular Cardiovascular exam: Present: RRR - GI/Abdominal GI/Abdominal exam: Present: hypoactive bowel sounds - Extremities Exam Extremities exam: Present: pedal edema (1+ BLE has improved) - Neurological Exam Neurological exam: Present: alert, altered Internal Medicine: Result - Labs CBC & Chem 7: 02/12/18 03:29 02/12/18 03:29 Labs: Short CBC 02/12/18 Range/Units 03:29 WBC 6.1 (4.3-11.1) K/mcL Hgb 8.3 L (11.5-15.4) g/dL Hct 26.3 L (35.3-44.9) % Plt Count 179 (140-400) K/mcL BMP 02/12/18 03:29 Sodium 136 Potassium 4.7 Chloride 100 Carbon Dioxide 25 BUN 28 H Creatinine 4.55 H Glucose 279 H Calcium 8.2 L - ABG Interpretation ABG results: PT/INR, D-dimer PT 11.7 Seconds (9.4-12.1) 02/08/18 09:58 - Impressions Impressions Chest X-Ray 02/11/18 12:50 IMPRESSION: Redemonstration of large layering right pleural effusion not significantly changed from prior. Large opacity in the mid to upper lung zone on the left is becoming more defined. Probably loculated pleural effusion with or without underlying mass. D/ / Kenney Gomez MD / Kenney Gomez MD Interpreting Provider: Kenney Gomez MD - VTE Reasons for not Prescribing Prophylaxis: Medical contraindication (Anemia, Suspected GI Bleed) Documentation of Mechanical Device: Intermittent pneumatic compression device Consult Discharge Plan - Plan Instructions: Heart Failure (DC), Chest Pain (DC), Diabetes Mellitus Type 2 in Adults (DC), Chronic Hypertension (DC), Pneumonia (DC), Joint Replacement Surgery, Senior Javascript Engineer (GEN) Referrals: Tawana Quintero CNP [Primary Care Provider] - <Williams Monroy - Last Filed: 02/12/18 16:09> Date of Encounter: 02/12/18 - Assessment and plan (1) Cough Current Visit: Yes Status: Acute (2) Acute renal failure due to tubular necrosis Current Visit: Yes Status: Suspected (3) Coronary artery disease Current Visit: Yes Status: Chronic Qualifiers: Coronary Disease-Associated Artery/Lesion type: bypass graft [place] vs. transplanted heart: [place] heart Associated angina: without angina Qualified Code(s): I25.810 - Atherosclerosis of coronary artery bypass graft(s) without angina pectoris (4) Type 2 diabetes mellitus with diabetic nephropathy, with long-term current use of insulin Current Visit: Yes Status: Chronic (5) Essential hypertension Current Visit: Yes Status: Chronic (6) NSTEMI (non-ST elevated myocardial infarction) Current Visit: Yes Status: Resolved (7) Anemia Current Visit: Yes Status: Suspected Qualifiers: Anemia type: due to chronic kidney disease Chronic kidney disease stage: stage 4 (severe) Qualified Code(s): N18.4 - Chronic kidney disease, stage 4 ( severe); D63.1 - Anemia in chronic kidney disease; D63.1 - Anemia in chronic kidney disease (8) CKD (chronic kidney disease) stage 4, GFR 15-29 ml/min Current Visit: Yes Status: Chronic (9) Goals of care, counseling/discussion Current Visit: Yes Status: Acute (10) DVT prophylaxis Current Visit: Yes Status: Acute - Time Spent With Patient Total time spent is greater than 50% in coordination of care (as documented) at patient's floor/unit and/or counseling patient: - Constitutional Vitals: Temp Pulse Resp BP Pulse Ox 98.6 F 74 16 159/77 98 02/12/18 15:35 02/12/18 15:35 02/12/18 15:35 02/12/18 15:35 02/12/18 15:35 Internal Medicine: Result - Labs CBC & Chem 7: 02/12/18 03:29 02/12/18 03:29 Labs: Short CBC 02/12/18 Range/Units 03:29 WBC 6.1 (4.3-11.1) K/mcL Hgb 8.3 L (11.5-15.4) g/dL Hct 26.3 L (35.3-44.9) % Plt Count 179 (140-400) K/mcL BMP 02/12/18 03:29 Sodium 136 Potassium 4.7 Chloride 100 Carbon Dioxide 25 BUN 28 H Creatinine 4.55 H Glucose 279 H Calcium 8.2 L - ABG Interpretation ABG results: PT/INR, D-dimer PT 11.7 Seconds (9.4-12.1) 02/08/18 09:58 - Impressions Impressions Chest X-Ray 02/11/18 12:50 IMPRESSION: Redemonstration of large layering right pleural effusion not significantly changed from prior. Large opacity in the mid to upper lung zone on the left is becoming more defined. Probably loculated pleural effusion with or without underlying mass. D/ / Kenney Gomez MD / Kenney Gomez MD Interpreting Provider: Kenney Gomez MD Chest CT 02/12/18 10:41 IMPRESSION: 1. [id number] loculated left pleural effusion posterior to the left mid lung. A trace free flowing left pleural effusion is also present. 2. Patchy airspace consolidation centrally in the left upper lobe, consistent with pneumonia. 3. Moderate right-sided pleural effusion which is free flowing. Right lower lobe atelectasis and/or consolidation is present. 4. Cardiomegaly with findings suggestive of mild pulmonary edema. D/ / 02/12/2018 14:30:32 Esteban Amor MD / yovany Interpreting Provider: Esteban Amor MD - Attending Attestation I examined this patient and my medical decision-making was reviewed with the Resident Physician on 02/12/18. I agree with the documented findings, disposition and treatment plan as described except to the extent set forth below. Ms Andres is currently admitted for NSTEMI and renal failure. She remains moderate to high risk due to potential for worsening clinical and respiratory status. Ms Andres is resting comfortably at this time. No fever. Coughing still. No CP. No GI issues. Exam alert Comfortable at this time Mucus membranes dry Heart distant and not tachy Lungs diminished Abd soft I/P 1. Cough - abnormal CXR. Check CT today 2. CAD Further diagnoses and plan as above.
--- NOTE | 2018-02-12 15:21 | Nephrology Progress Note ---
Date of Encounter: 02/12/18 Time of Encounter: 13:00 - Assessment and Plan (1) Acute kidney injury superimposed on CKD Status: Acute SCr worse again at 4.55, GFR 9 off HD yesterday hence no signs of renal recovery at this time No UOP documented Will plan for permcath early next week Continue to avoid nephrotoxins if possible (2) CKD (chronic kidney disease) stage 4, GFR 15-29 ml/min Status: Chronic (3) Pneumonia Status: Acute Abx per primary team Qualifiers: Pneumonia type: due to unspecified organism Laterality: left Lung location: unspecified part of lung Qualified Code(s): J18.9 - Pneumonia, unspecified organism Subjective Principal diagnosis: chest pain Interval history: Pt seen and examined still with persistent cough, sister in law present at bedside. CXR results discussed with Ct chest pending Objective - Vital Signs Vital signs: Vital Signs Temp Pulse Resp BP Pulse Ox 02/12/18 11:08 98.5 F 78 18 152/61 98 02/12/18 08:00 83 18 163/62 98 02/12/18 02:57 98.6 F 80 18 148/69 97 02/11/18 23:17 98.6 F 80 18 154/65 94 02/11/18 21:40 92 02/11/18 18:44 98.2 F 83 18 145/71 95 02/11/18 15:52 98.6 F 76 16 148/97 96 Intake and Output 02/11/18 02/12/18 02/12/18 23:59 07:59 15:59 Intake Total 876 / 876 0 / 0 450 / 450 Output Total 0 / 0 0 / 0 Balance 876 / 876 0 / 0 450 / 450 Intake: Oral 876 / 876 0 / 0 450 / 450 Output: Urine 0 / 0 0 / 0 Other: Meal Dinner Lunch Percent of Meal Consumed 0% 100% Stool Size Moderate Stool Consistency formed Stool Color Brown # Bowel Movements 0 Weight 68.8 kg Blood Glucose* 174 319 Patient Weight 02/12/18 23:59 Weight 68.8 kg - General Appearance General appearance: Present: moderate distress (due to coughing) EENT: Present: ATNC, mucous membranes moist Neck: Present: no JVD, supple Respiratory: Present: course breath sounds Cardiology: Present: edema, normal S1, normal S2 Dialysis Vascular Access: Venous Catheter (temp IJ) Gastrointestinal: Present: no tenderness, no guarding Integumentary: Present: warm and dry Neurologic: Present: no focal deficit Musculoskeletal: Present: no deformities Psychiatric: Present: mood/affect appropriate, cooperative - Lab 02/21/18 05:23 02/21/18 05:23 Most recent lab results Calcium 8.2 mg/dL (8.6-10.3) L 02/12/18 03:29 Magnesium 1.9 mg/dL (1.6-2.6) 02/06/18 04:56 Urine Creatinine 52 mg/dL 02/03/18 07:25 - VTE Reasons for not Prescribing Prophylaxis: Medical contraindication (Anemia, Suspected GI Bleed) Documentation of Mechanical Device: Intermittent pneumatic compression device Consult Discharge Plan - Plan Instructions: Heart Failure (DC), Chest Pain (DC), Diabetes Mellitus Type 2 in Adults (DC), Chronic Hypertension (DC), Pneumonia (DC), Joint Replacement Surgery, 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
[2018-02-12] MEDS: Piperacillin/Tazobactam 3.375 GM in 0.9 % Sodium Chloride Mini Bag 100 ML IVPB SCH (16:59)
[2018-02-13] MEDS: Acetaminophen 325 MG TABLET PO PRN (00:17)
[2018-02-13 04:39] LABS: Hematocrit 27.3 % (35.3-44.9); Hemoglobin 8.6 g/dL (11.5-15.4); Mean Corpuscular HGB Conc 31.5 g/dL (31.6-35.5); Mean Corpuscular Hemoglobin 30.2 pg (28.0-33.3); Mean Corpuscular Volume 95.8 fL (83.0-100.0); Mean Platelet Volume 12.1 fL (9.4-12.4); Platelet Count 183 K/mcL (140-400); Red Blood Count 2.85 M/mcL (3.82-4.97); Red Cell Distribution Width 14.9 % (11.5-14.5)
[2018-02-13 04:53] LABS: Calcium 8.3 mg/dL (8.6-10.3); Potassium 4.7 mEq/L (3.5-5.1)
[2018-02-13] MEDS: *HR* Heparin 5,000 UNIT/ML VIAL SQ SCH ×2 (06:00→17:20)
[2018-02-13] MEDS: *HR* LORazepam 0.5 MG TABLET PO PRN (06:00)
[2018-02-13] MEDS: Piperacillin/Tazobactam 3.375 GM in 0.9 % Sodium Chloride Mini Bag 100 ML IVPB SCH ×2 (06:01→17:20)
[2018-02-13] MEDS ORDERED: 0.9 % Sodium Chloride 1,000 ML ONE (07:56)
[2018-02-13] MEDS: *HR* Acetylcysteine 20% 600 MG/3 ML ORAL SYRINGE PO SCH ×2 (08:25→22:46)
[2018-02-13] MEDS: Cholecalciferol (D-3) 1,000 UNIT TABLET PO SCH (08:26)
[2018-02-13] MEDS: Aspirin 81 MG TAB.CHEW PO SCH (08:26)
[2018-02-13] MEDS: Insulin NPH/REG 70/30 100 UNIT/ML (x5UNIT) SQ SCH ×2 (08:26→17:19)
[2018-02-13] MEDS: Famotidine 20 MG TABLET PO SCH (08:26)
[2018-02-13] MEDS: Insulin LISPRO 300 UNITS/3 ML VIAL SQ SCH ×4 (08:27→22:47)
[2018-02-13] MEDS ORDERED: 0.9 % Sodium Chloride 250 ML IVC PRN (08:34)
[2018-02-13] MEDS ORDERED: *HR* Heparin 10,000 UNIT/10 ML VIAL IV PRN (08:34)
--- NOTE | 2018-02-13 11:08 | Internal Med Progress Note ---
<Anastacio Oscar - Last Filed: 02/13/18 15:35> Date of Encounter: 02/13/18 Time of Encounter: 11:06 - Assessment and plan (1) Acute renal failure due to tubular necrosis Current Visit: Yes Status: Suspected Assessment and plan: Patient has had 7.8 L removed in 3 days from HD, last on tuesday. Patient to receive HD again today. Nephro is not planning HD this weekend; and will reevaluate on Tuesday. Patient is tolerating HD well. Cr bumped up today to 4.55. - appreciate nephrology and palliative care input - continue to monitor I/O - avoid nephrotoxins - renal diet (2) Coronary artery disease Current Visit: Yes Status: Chronic Assessment and plan: Reconsulted Cardio. They will coordinate with nephrology for [facility]. - appreciate Cardio's recommendation Qualifiers: Coronary Disease-Associated Artery/Lesion type: bypass graft [place] vs. transplanted heart: [place] heart Associated angina: without angina Qualified Code(s): I25.810 - Atherosclerosis of coronary artery bypass graft(s) without angina pectoris (3) Type 2 diabetes mellitus with diabetic nephropathy, with long-term current use of insulin Current Visit: Yes Status: Chronic Assessment and plan: glu remained elevated today, increased SSI to medium (4) Essential hypertension Current Visit: Yes Status: Chronic Assessment and plan: Controlled at this time. (5) DVT prophylaxis Current Visit: Yes Status: Acute Assessment and plan: On heparin sq (6) NSTEMI (non-ST elevated myocardial infarction) Current Visit: Yes Status: Resolved Assessment and plan: Pt admitted with chest pain and troponins elevated c/w acute NSTEMI. - cardio reconsulted (7) Anemia Current Visit: Yes Status: Suspected Assessment and plan: Following. remains stable at 8.6 today Qualifiers: Anemia type: due to chronic kidney disease Chronic kidney disease stage: stage 4 (severe) Qualified Code(s): N18.4 - Chronic kidney disease, stage 4 ( severe); D63.1 - Anemia in chronic kidney disease; D63.1 - Anemia in chronic kidney disease (8) CKD (chronic kidney disease) stage 4, GFR 15-29 ml/min Current Visit: Yes Status: Chronic Assessment and plan: Chronic issue (9) Goals of care, counseling/discussion Current Visit: Yes Status: Acute Assessment and plan: Palliative care was consulted. Status changed to DNR/DNI/CCA. Patient has agreed to do temp HD. - appreciate palliative care's input. (10) Cough Current Visit: Yes Status: Acute Assessment and plan: most likely due to fluid status. CXR showed large opacities in left lung and loculated pleural effusions. Chest CT reported Loculated L effusion and infiltrate. R side effusion as well. - Zosyn day 2 - Will order CXR follow up tomorrow - Time Spent With Patient Total time spent is greater than 50% in coordination of care (as documented) at patient's floor/unit and/or counseling patient: - Subjective Interval history: Patient is seen and examined. Patient continues to have mild cough. Patient denies CP, SOB. All other ROS is negative. - Constitutional Vitals: Temp Pulse Resp BP Pulse Ox 98.2 F 78 16 154/75 98 02/13/18 06:37 02/13/18 06:37 02/13/18 06:37 02/13/18 06:37 02/13/18 06:37 General appearance: Present: cooperative, A&O X 3, pleasant, no acute distress, obese, answers questions appropriately - Head Head exam: Present: atraumatic, normocephalic - ENT ENT exam: Present: mucous membranes dry - Respiratory Respiratory exam: Present: wheezes - Cardiovascular Cardiovascular exam: Present: RRR - GI/Abdominal GI/Abdominal exam: Present: hypoactive bowel sounds. Absent: rigid, soft, tenderness - Extremities Exam Extremities exam: Present: pedal edema (1+ BLE) - Neurological Exam Neurological exam: Present: alert, oriented X3 Internal Medicine: Result - Labs CBC & Chem 7: 02/13/18 03:57 02/13/18 03:57 Labs: Short CBC 02/13/18 Range/Units 03:57 WBC 6.8 (4.3-11.1) K/mcL Hgb 8.6 L (11.5-15.4) g/dL Hct 27.3 L (35.3-44.9) % Plt Count 183 (140-400) K/mcL BMP 02/13/18 03:57 Sodium 136 Potassium 4.7 Chloride 99 Carbon Dioxide 24 BUN 42 H Creatinine 5.70 H Glucose 280 H Calcium 8.3 L - ABG Interpretation ABG results: PT/INR, D-dimer PT 11.7 Seconds (9.4-12.1) 02/08/18 09:58 - Impressions Impressions Chest CT 02/12/18 10:41 IMPRESSION: 1. Heufu-ud-korlpbcc loculated left pleural effusion posterior to the left mid lung. A trace free flowing left pleural effusion is also present. 2. Patchy airspace consolidation centrally in the left upper lobe, consistent with pneumonia. 3. Moderate right-sided pleural effusion which is free flowing. Right lower lobe atelectasis and/or consolidation is present. 4. Cardiomegaly with findings suggestive of mild pulmonary edema. D/ / 02/12/2018 14:30:32 Esteban Amor MD / [facility] Interpreting Provider: Esteban Amor MD - VTE Reasons for not Prescribing Prophylaxis: Medical contraindication (Anemia, Suspected GI Bleed) Documentation of Mechanical Device: Intermittent pneumatic compression device Consult Discharge Plan - Plan Instructions: Heart Failure (DC), Chest Pain (DC), Diabetes Mellitus Type 2 in Adults (DC), Chronic Hypertension (DC), Pneumonia (DC), Joint Replacement Surgery, Youth Court Judge (GEN) Referrals: Tawana Quintero, SENIOR PRINCIPAL PROCESS ENGINEER [Primary Care Provider] - <Williams Monroy - Last Filed: 02/13/18 19:17> Date of Encounter: 02/13/18 - Assessment and plan (1) Pneumonia Current Visit: Yes Status: Acute Qualifiers: Pneumonia type: due to other aerobic Gram-negative bacteria Laterality: left Lung location: upper lobe of lung Qualified Code(s): J15.6 - Pneumonia due to other Gram-negative bacteria (2) Acute renal failure due to tubular necrosis Current Visit: Yes Status: Suspected (3) Coronary artery disease Current Visit: Yes Status: Chronic Qualifiers: Coronary Disease-Associated Artery/Lesion type: bypass graft [place] vs. transplanted heart: [place] heart Associated angina: without angina Qualified Code(s): I25.810 - Atherosclerosis of coronary artery bypass graft(s) without angina pectoris (4) Type 2 diabetes mellitus with diabetic nephropathy, with long-term current use of insulin Current Visit: Yes Status: Chronic (5) Essential hypertension Current Visit: Yes Status: Chronic (6) DVT prophylaxis Current Visit: Yes Status: Acute (7) NSTEMI (non-ST elevated myocardial infarction) Current Visit: Yes Status: Resolved (8) Anemia Current Visit: Yes Status: Suspected Qualifiers: Anemia type: due to chronic kidney disease Chronic kidney disease stage: stage 4 (severe) Qualified Code(s): N18.4 - Chronic kidney disease, stage 4 ( severe); D63.1 - Anemia in chronic kidney disease; D63.1 - Anemia in chronic kidney disease (9) CKD (chronic kidney disease) stage 4, GFR 15-29 ml/min Current Visit: Yes Status: Chronic (10) Goals of care, counseling/discussion Current Visit: Yes Status: Acute (11) Cough Current Visit: Yes Status: Acute - Time Spent With Patient Total time spent is greater than 50% in coordination of care (as documented) at patient's floor/unit and/or counseling patient: - Constitutional Vitals: Temp Pulse Resp BP Pulse Ox 98.6 F 91 17 156/72 97 02/13/18 18:48 02/13/18 18:48 02/13/18 18:48 02/13/18 18:48 02/13/18 18:48 Internal Medicine: Result - Labs CBC & Chem 7: 02/13/18 03:57 02/13/18 03:57 Labs: Short CBC 02/13/18 Range/Units 03:57 WBC 6.8 (4.3-11.1) K/mcL Hgb 8.6 L (11.5-15.4) g/dL Hct 27.3 L (35.3-44.9) % Plt Count 183 (140-400) K/mcL BMP 02/13/18 03:57 Sodium 136 Potassium 4.7 Chloride 99 Carbon Dioxide 24 BUN 42 H Creatinine 5.70 H Glucose 280 H Calcium 8.3 L - ABG Interpretation ABG results: PT/INR, D-dimer PT 11.7 Seconds (9.4-12.1) 02/08/18 09:58 - Impressions Impressions Chest CT 02/12/18 10:41 IMPRESSION: 1. Ygviz-ha-yzjoeqju loculated left pleural effusion posterior to the left mid lung. A trace free flowing left pleural effusion is also present. 2. Patchy airspace consolidation centrally in the left upper lobe, consistent with pneumonia. 3. Moderate right-sided pleural effusion which is free flowing. Right lower lobe atelectasis and/or consolidation is present. 4. Cardiomegaly with findings suggestive of mild pulmonary edema. D/ / 02/12/2018 14:30:32 Esteban Amor MD / yovany Interpreting Provider: Esteban Amor MD - Attending Attestation I examined this patient and my medical decision-making was reviewed with the Resident Physician on 02/13/18. I agree with the documented findings, disposition and treatment plan as described except to the extent set forth below. Ms Andres is currently admitted with NSTEMI and renal failure. She remains moderate to high risk due to potential for worsening clinical status. Ms Andres is still coughing a lot. Chest is moist. No fever now. Tolerating dialysis. Abd not issues. Exam alert Mod distress due to cough Mucus membranes dry Heart distant Lungs with some rhonchi Abd soft I/P 1 Pneumonia 2 Pleural effusion Further diagnoses and plan as above.
--- NOTE | 2018-02-13 13:56 | Cardiology Progress Note ---
Date of Encounter: 02/13/18 Time of Encounter: 13:00 Assessment and Plan (1) NSTEMI (non-ST elevated myocardial infarction) Current Visit: Yes Status: Resolved Per cardiology: -Concern for NSTEMI on admission. 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 Reported nausea, diaphoresis, SOB. -Troponin, 0.03, 0.71, 5.22, 8.76, 8.03 -Initial EKG with depression in lateral leads. -TTE: LVEF 55%, mild- moderate MR, moderate- severe TR, severe pulmonary hypertension, RVSP 70-75mmHg. -Remains volume overloaded on exam. -LHC recommended once stable. Continues to have fluid overload and unable to lay flat, now with cough. (2) Anemia Current Visit: Yes Status: Suspected Per cardiology: -Anemia concerning for GI bleed during stay. Hgb stable. Recieved one unit PRBC 01/25/18. -01/29/2018 EGD: demonstrated small angiodysplasia in fundus. Biopsies and cauterization. -Per discussion with surgery previously, heparin may be continued and LHC performed. Qualifiers: Anemia type: due to chronic kidney disease Chronic kidney disease stage: stage 4 (severe) Qualified Code(s): N18.4 - Chronic kidney disease, stage 4 ( severe); D63.1 - Anemia in chronic kidney disease; D63.1 - Anemia in chronic kidney disease (3) CKD (chronic kidney disease) Current Visit: Yes Status: Acute Per cardiology: -History of CKD. Followed by [facility]. Dialysis started during stay. Qualifiers: Chronic kidney disease stage: unspecified stage Qualified Code(s): N18.9 - Chronic kidney disease, unspecified Discussion w patient/family: The assessment and plan as outlined above was discussed with the patient who expressed understanding and agreement. All questions were answered. Thank you for involving us in the care of your patient. Please call with any questions. Discussed and reviewed with . Subjective Principal diagnosis: NSTEMI, CKD, anemia Interval history: Patient reports cough today. States she does not feel ready for LHC today. Objective Vital Signs, Last 4 Hours Vital Signs Temperature 98.1 F 02/13/18 09:00 Pulse Rate 78 02/13/18 06:37 Respiratory Rate 16 02/13/18 09:00 Blood Pressure 130/56 02/13/18 12:15 O2 Sat by Pulse Oximetry 98 02/13/18 06:37 Oxygen Delivery Oxygen Delivery Nasal Cannula General: Conversant, No Apparent Distress HEENT: Atraumatic, Normocephaly, Mucus Membranes Moist Neck: No JVD, Normal carotid pulses Cardiac: Reg Rate and Rhythm, Normal S1 and S2, No Murmur Lungs: Other (Lung sounds diminished to bilateral bases. Cough noted. ) Neuro: Alert and responsive, No focal deficits noted Abdomen: Soft, Non-Tender Skin: No rashes noted on visualized skin Musculoskeletal: No Chest Wall Tenderness Extremities: No Clubbing, No Cyanosis, Normal Pulses, Other (1+ bilateral lower extremity pitting edema. ) Results 02/13/18 03:57 02/13/18 03:57 Lab Results Impressions Chest CT 02/12/18 10:41 IMPRESSION: 1. Jagrw-yz-vodpsjep loculated left pleural effusion posterior to the left mid lung. A trace free flowing left pleural effusion is also present. 2. Patchy airspace consolidation centrally in the left upper lobe, consistent with pneumonia. 3. Moderate right-sided pleural effusion which is free flowing. Right lower lobe atelectasis and/or consolidation is present. 4. Cardiomegaly with findings suggestive of mild pulmonary edema. D/ / 02/12/2018 14:30:32 Esteban Amor MD / [facility] Interpreting Provider: Esteban Amor MD Active Medications Acetaminophen (Tylenol) 650 mg PO Q6HR PRN PRN Reason: Mild Pain/Fever Stop: 07/28/18 05:30 Last Admin: 02/13/18 00:17 Dose: 650 mg Acetylcysteine (Acetylcysteine 20%) 600 mg PO BID [facility] Stop: 08/11/18 09:01 Last Admin: 02/13/18 08:25 Dose: 600 mg Aspirin (Aspirin) 81 mg PO DAILY [facility] Stop: 07/28/18 09:01 Last Admin: 02/13/18 08:26 Dose: 81 mg Benzonatate (Tessalon) 100 mg PO TID PRN PRN Reason: Cough Stop: 08/12/18 13:53 Last Admin: 02/12/18 20:41 Dose: 100 mg Bisacodyl (Dulcolax) 10 mg RC DAILY PRN PRN Reason: Constipation Stop: 08/06/18 13:43 Last Admin: 02/04/18 14:01 Dose: 10 mg Calcium Polycarbophil (Fibercon) 625 mg PO BID [facility] Stop: 08/09/18 09:01 Last Admin: 02/13/18 08:26 Dose: 625 mg Dextrose/Water (Dextrose 50% (Syg)) 25 ml IVP AD PRN PRN Reason: Hypoglycemia Stop: 07/28/18 05:37 Diphenhydramine HCl (Benadryl) 25 mg PO Q8HR PRN PRN Reason: Nausea Stop: 08/10/18 10:51 Famotidine (Pepcid) 10 mg PO DAILY [facility] Stop: 08/07/18 09:01 Last Admin: 02/13/18 08:26 Dose: 10 mg Glucagon (Glucagen) 1 mg IM ONCE PRN PRN Reason: Hypoglycemia Stop: 07/28/18 05:37 Glucose (Gluctose) 15 gm PO ONCE PRN PRN Reason: Hypoglycemia Stop: 07/28/18 05:37 Glucose (Gluctose) 30 gm PO ONCE PRN PRN Reason: Hypoglycemia Stop: 07/28/18 05:37 Guaifenesin (Mucinex) 600 mg PO BID PRN PRN Reason: Congestion Stop: 08/10/18 22:16 Last Admin: 02/09/18 23:25 Dose: 600 mg Guaifenesin (Robitussin/Dm) 10 ml PO Q6HR PRN PRN Reason: Cough Stop: 08/12/18 22:16 Last Admin: 02/13/18 00:13 Dose: 10 ml Heparin Sodium (Porcine) (Heparin) 5,000 unit SQ Q12HCO [facility] Stop: 08/03/18 18:01 Last Admin: 02/13/18 06:00 Dose: 5,000 unit Heparin Sodium (Porcine) (Heparin) 0 unit IV ONCE PRN PRN Reason: Hemodialysis Catheter Packing Hydralazine HCl (Hydralazine) 10 mg IVP Q6HR PRN PRN Reason: Hypertension Stop: 08/13/18 04:41 Last Admin: 02/11/18 04:46 Dose: 10 mg Dextrose (Dextrose 5%) 1,000 mls @ 100 mls/hr IVC .Q10H PRN PRN Reason: HYPOGLYCEMIA Stop: 07/28/18 05:37 Piperacillin Sod/Tazobactam (Sod 3.375 gm/ Sodium Chloride) 100 mls @ 25 mls/ hr IVPB Q12HR [facility] Stop: 08/14/18 18:01 Last Admin: 02/13/18 06:01 Dose: 25 mls/hr Sodium Chloride (0.9 % Sodium Chloride) 250 mls @ 937.5 mls/hr IVC .Q16M PRN PRN Reason: Hypotension Stop: 08/15/18 08:35 Insulin Human Lispro (Humalog) 0 units SQ HS [facility] PRN Reason: Protocol Stop: 08/03/18 21:01 Insulin Human Lispro (Humalog) 0 units SQ TIDAC [facility] PRN Reason: Protocol Stop: 08/03/18 16:31 Last Admin: 02/13/18 12:36 Dose: Not Given Insulin Isophane/Insulin Regular (Humulin 70/30 Vial) 22 unit SQ QAM [facility] Stop: 08/04/18 09:01 Last Admin: 02/13/18 08:26 Dose: 22 unit Insulin Isophane/Insulin Regular (Humulin 70/30 Vial) 12 unit SQ 1630 [facility] Stop: 08/03/18 16:31 Last Admin: 02/12/18 16:29 Dose: 12 unit Lorazepam (Ativan) 0.5 mg PO TID PRN PRN Reason: Anxiety Stop: 08/10/18 16:11 Last Admin: 02/13/18 06:00 Dose: 0.5 mg Metoclopramide HCl (Reglan) 10 mg PO QIDAC [facility] Stop: 08/11/18 16:31 Last Admin: 02/13/18 12:37 Dose: Not Given Metoprolol Tartrate (Lopressor) 2.5 mg IVP Q6HR PRN PRN Reason: Heart Rate- High Stop: 07/28/18 05:35 Last Admin: 01/26/18 05:52 Dose: 2.5 mg Metoprolol Tartrate (Lopressor) 25 mg PO BID [facility] Stop: 08/05/18 18:46 Last Admin: 02/13/18 12:42 Dose: Not Given Naloxone HCl (Narcan) 0.4 mg IVP Q2MIN PRN PRN Reason: SEE COMMENTS Stop: 07/28/18 05:30 Nitroglycerin (Nitroglycerin) 0.4 mg SL Q5MIN PRN PRN Reason: Chest Pain Stop: 07/27/18 23:54 Last Admin: 01/26/18 00:43 Dose: 0.4 mg Omeprazole (Prilosec) 20 mg PO BIDAC [facility] PRN Reason: Protocol Stop: 08/02/18 16:31 Last Admin: 02/13/18 08:26 Dose: 20 mg Ondansetron HCl (Zofran) 4 mg IVP Q4HR PRN PRN Reason: Nausea And Vomiting Stop: 07/28/18 08:01 Last Admin: 02/11/18 08:19 Dose: 4 mg Rosuvastatin Calcium (Crestor) 10 mg PO HS [facility] Stop: 07/28/18 21:01 Last Admin: 02/12/18 20:41 Dose: 10 mg Throat Lozenges (Cepacol Sore Throat Lozenge) 1 each MM Q2H PRN PRN Reason: Sore Throat Stop: 08/01/18 10:58 Last Admin: 01/31/18 21:45 Dose: 1 each Vitamin D (Vitamin D) 1,000 unit PO DAILY [facility] Stop: 07/30/18 17:46 Last Admin: 02/13/18 08:26 Dose: 1,000 unit Laboratory Tests 02/13/18 02/13/18 03:57 03:57 Hgb 8.6 L Creatinine 5.70 H - Imaging and Cardiology Chest Xray: report reviewed Echo: report reviewed - EKG Interpretation EKG results cardiology: other (Telemetry reviewed with average HR previous 12 hours noted to be 79, SR. PVCs and PACs noted. Short runs of atrial tachycardia noted.) - VTE Reasons for not Prescribing Prophylaxis: Medical contraindication (Anemia, Suspected GI Bleed) Documentation of Mechanical Device: Intermittent pneumatic compression device Consult Discharge Plan - Plan Instructions: Heart Failure (DC), Chest Pain (DC), Diabetes Mellitus Type 2 in Adults (DC), Chronic Hypertension (DC), Pneumonia (DC), Joint Replacement Surgery, Data Coordinator (GEN) Referrals: Tawana Quintero, [employer] PREP TEACHER [Primary Care Provider] -
[2018-02-13] MEDS: Benzonatate 100 MG CAPSULE PO PRN (17:37)
--- NOTE | 2018-02-13 23:43 | Nephrology Progress Note ---
Date of Encounter: 02/13/18 Time of Encounter: 12:00 - Assessment and Plan (1) Acute kidney injury superimposed on CKD Current Visit: Yes Status: Acute SCr still poor with no signs of renal recovery, will continue HD today with UF goal of 2-3kg as tolerated UOP documented at 100cc in the past 24hrs Will plan for permcath early next week Continue to avoid nephrotoxins if possible (2) CKD (chronic kidney disease) stage 4, GFR 15-29 ml/min Current Visit: Yes Status: Chronic Baseline GFR typically in the 20s and on occasion up to 30 (3) Pneumonia Current Visit: Yes Status: Acute Abx per primary team Qualifiers: Pneumonia type: due to other aerobic Gram-negative bacteria Laterality: left Lung location: upper lobe of lung Qualified Code(s): J15.6 - Pneumonia due to other Gram-negative bacteria Subjective Principal diagnosis: NSTEMI, CKD, anemia Interval history: Pt seen and examined on HD with slightly less cough today. Ct chest showed PNA and bilateral effusion with small left loculated one noted, abx started by primary team. Objective - Vital Signs Vital signs: Vital Signs Temp Pulse Resp BP Pulse Ox 02/13/18 18:48 98.6 F 91 17 156/72 97 02/13/18 17:11 99 F 86 15 151/57 98 02/13/18 12:40 97.3 F L 15 153/64 02/13/18 12:30 121/56 02/13/18 12:15 130/56 02/13/18 12:00 134/54 02/13/18 11:45 147/60 02/13/18 11:30 145/56 02/13/18 11:15 147/56 02/13/18 11:00 157/74 02/13/18 10:45 160/58 02/13/18 10:30 165/95 02/13/18 10:15 172/65 02/13/18 10:00 166/58 02/13/18 09:45 164/60 02/13/18 09:30 172/68 02/13/18 09:15 171/65 02/13/18 09:00 98.1 F 16 162/68 02/13/18 06:37 98.2 F 78 16 154/75 98 02/13/18 05:00 98.2 F 81 17 147/57 94 Intake and Output 02/13/18 02/13/18 02/13/18 07:59 15:59 23:59 Intake Total 0 / 0 700 / 700 120 / 120 Output Total 0 / 0 4600 / 4600 Balance 0 / 0 -3900 / -3900 120 / 120 Intake: IV Fluids 100 / 100 Zosyn 3.375 GM In 0.9 % Sodium 100 / 100 Chloride (Mini-Bag +) 100 ML @ 25 mls/hr IVPB Q12HR [facility] Rx#: [id number] Oral 0 / 0 0 / 0 120 / 120 Intake, Rinseback and Flushes 600 / 600 Output: Urine 0 / 0 0 / 0 Total Dialysis (HD) Output 4600 / 4600 Other: Meal Lunch Dinner Percent of Meal Consumed 0% 15% Weight 70.7 kg Blood Glucose* 370 162 Hemodialysis Net Fluid Removed 4000 (mL) Patient Weight 02/13/18 23:59 Weight 70.7 kg - General Appearance General appearance: Present: chronically ill (NAD) EENT: Present: ATNC, mucous membranes moist Neck: Present: no JVD, supple Additional Comments: good areation ant bilat Cardiology: Present: edema (LE bilat), normal S1, normal S2 Dialysis Vascular Access: Venous Catheter (temp IJ) Gastrointestinal: Present: no tenderness, no guarding Integumentary: Present: warm and dry Neurologic: Present: no focal deficit Musculoskeletal: Present: no deformities Psychiatric: Present: mood/affect appropriate - Lab 02/13/18 03:57 02/13/18 03:57 Most recent lab results Calcium 8.3 mg/dL (8.6-10.3) L 02/13/18 03:57 Magnesium 1.9 mg/dL (1.6-2.6) 02/06/18 04:56 Urine Creatinine 52 mg/dL 02/03/18 07:25 - VTE Reasons for not Prescribing Prophylaxis: Medical contraindication (Anemia, Suspected GI Bleed) Documentation of Mechanical Device: Intermittent pneumatic compression device Consult Discharge Plan - Plan Instructions: Heart Failure (DC), Chest Pain (DC), Diabetes Mellitus Type 2 in Adults (DC), Chronic Hypertension (DC), Pneumonia (DC), Joint Replacement Surgery, Patient Partner (GEN) Referrals: Tawana Quintero, AIR SAW OPERATOR [Primary Care Provider] -
[2018-02-14] MEDS: Piperacillin/Tazobactam 3.375 GM in 0.9 % Sodium Chloride Mini Bag 100 ML IVPB SCH ×2 (06:07→17:53)
[2018-02-14] MEDS: *HR* Heparin 5,000 UNIT/ML VIAL SQ SCH ×2 (06:08→18:00)
[2018-02-14 08:24] LABS: Calcium 8.3 mg/dL (8.6-10.3); Potassium 4.1 mEq/L (3.5-5.1)
[2018-02-14 08:26] LABS: Hemoglobin 8.3 g/dL (11.5-15.4); Mean Corpuscular HGB Conc 30.7 g/dL (31.6-35.5); Mean Corpuscular Hemoglobin 29.4 pg (28.0-33.3); Mean Corpuscular Volume 95.7 fL (83.0-100.0); Mean Platelet Volume 11.4 fL (9.4-12.4); Platelet Count 180 K/mcL (140-400); Red Blood Count 2.82 M/mcL (3.82-4.97); Red Cell Distribution Width 14.6 % (11.5-14.5)
[2018-02-14] MEDS: Aspirin 81 MG TAB.CHEW PO SCH (08:50)
[2018-02-14] MEDS: Benzonatate 100 MG CAPSULE PO PRN (08:50)
[2018-02-14] MEDS: Cholecalciferol (D-3) 1,000 UNIT TABLET PO SCH (08:50)
[2018-02-14] MEDS: Famotidine 20 MG TABLET PO SCH (08:50)
[2018-02-14] MEDS: *HR* Acetylcysteine 20% 600 MG/3 ML ORAL SYRINGE PO SCH ×2 (08:52→22:15)
[2018-02-14] MEDS: Insulin LISPRO 300 UNITS/3 ML VIAL SQ SCH ×3 (08:55→17:47)
--- NOTE | 2018-02-14 10:11 | Internal Med Progress Note ---
<Anastacio Oscar - Last Filed: 02/14/18 13:34> Date of Encounter: 02/14/18 Time of Encounter: 10:08 - Assessment and plan (1) Cough Current Visit: Yes Status: Acute Assessment and plan: most likely due to fluid status. CXR showed large opacities in left lung and loculated pleural effusions. Chest CT reported Loculated L effusion and infiltrate. R side effusion as well. - Zosyn day 3 - Patient agrees to have pleural effusion drained; IR consulted for chest tube - Will order CXR post IR procedure (2) Coronary artery disease Current Visit: Yes Status: Chronic Assessment and plan: Reconsulted Cardio. They will coordinate with nephrology for [facility]. - appreciate Cardio's recommendation Qualifiers: Coronary Disease-Associated Artery/Lesion type: bypass graft [place] vs. transplanted heart: [place] heart Associated angina: without angina Qualified Code(s): I25.810 - Atherosclerosis of coronary artery bypass graft(s) without angina pectoris (3) Type 2 diabetes mellitus with diabetic nephropathy, with long-term current use of insulin Current Visit: Yes Status: Chronic Assessment and plan: SSI medium continue, will continue to closely monitor (4) Essential hypertension Current Visit: Yes Status: Chronic Assessment and plan: Controlled at this time. (5) DVT prophylaxis Current Visit: Yes Status: Acute Assessment and plan: On heparin sq (6) NSTEMI (non-ST elevated myocardial infarction) Current Visit: Yes Status: Resolved Assessment and plan: Pt admitted with chest pain and troponins elevated c/w acute NSTEMI. - cardio reconsulted (7) Anemia Current Visit: Yes Status: Suspected Assessment and plan: Following. remains relatively stable today Qualifiers: Anemia type: due to chronic kidney disease Chronic kidney disease stage: stage 4 (severe) Qualified Code(s): N18.4 - Chronic kidney disease, stage 4 ( severe); D63.1 - Anemia in chronic kidney disease; D63.1 - Anemia in chronic kidney disease (8) CKD (chronic kidney disease) stage 4, GFR 15-29 ml/min Current Visit: Yes Status: Chronic Assessment and plan: Chronic issue (9) Acute renal failure due to tubular necrosis Current Visit: Yes Status: Suspected Assessment and plan: Patient has had 7.8 L removed in 3 days from HD last week, received HD yesterday with 4.6 L off. Patient is tolerating HD well. Cr mild worsening today. - appreciate nephrology and palliative care input - continue to monitor I/O - avoid nephrotoxins - renal diet (10) Goals of care, counseling/discussion Current Visit: Yes Status: Acute Assessment and plan: Palliative care was consulted. Status changed to DNR/DNI/CCA. Patient has agreed to do temp HD. - appreciate palliative care's input. (11) Pneumonia Current Visit: Yes Status: Acute Assessment and plan: see above Qualifiers: Pneumonia type: due to other aerobic Gram-negative bacteria Laterality: left Lung location: upper lobe of lung Qualified Code(s): J15.6 - Pneumonia due to other Gram-negative bacteria - Time Spent With Patient Total time spent is greater than 50% in coordination of care (as documented) at patient's floor/unit and/or counseling patient: - Subjective Interval history: Patient is seen and examined. Patient's difficulty in breathing has worsened today. She states she has previously had a chest tube placed before, and she verbally agrees to drain her pleural effusion. Patient denies CP, SOB. All other ROS is negative. - Constitutional Vitals: Temp Pulse Resp BP Pulse Ox 98.3 F 86 19 169/80 96 02/14/18 08:01 02/14/18 08:01 02/14/18 08:01 02/14/18 08:01 02/14/18 08:01 General appearance: Present: cooperative, mild distress, A&O X 3, pleasant, obese, answers questions appropriately - Head Head exam: Present: atraumatic, normocephalic - ENT ENT exam: Present: mucous membranes dry - Respiratory Respiratory exam: Present: wheezes (left lower lung wheezes) - Cardiovascular Cardiovascular exam: Present: RRR - Extremities Exam Extremities exam: Absent: pedal edema Internal Medicine: Result - Labs CBC & Chem 7: 02/14/18 07:46 02/14/18 07:46 Labs: Short CBC 02/14/18 Range/Units 07:46 WBC 6.2 (4.3-11.1) K/mcL Hgb 8.3 L (11.5-15.4) g/dL Hct 27.0 L (35.3-44.9) % Plt Count 180 (140-400) K/mcL BMP 02/14/18 07:46 Sodium 138 Potassium 4.1 Chloride 99 Carbon Dioxide 26 BUN 24 H Creatinine 4.11 H Glucose 195 H Calcium 8.3 L - ABG Interpretation ABG results: PT/INR, D-dimer PT 11.7 Seconds (9.4-12.1) 02/08/18 09:58 - Impressions Impressions Chest CT 02/12/18 10:41 IMPRESSION: 1. [id number] loculated left pleural effusion posterior to the left mid lung. A trace free flowing left pleural effusion is also present. 2. Patchy airspace consolidation centrally in the left upper lobe, consistent with pneumonia. 3. Moderate right-sided pleural effusion which is free flowing. Right lower lobe atelectasis and/or consolidation is present. 4. Cardiomegaly with findings suggestive of mild pulmonary edema. D/ / 02/12/2018 14:30:32 Esteban Amor MD / yovany Interpreting Provider: Esteban Amor MD - VTE Reasons for not Prescribing Prophylaxis: Medical contraindication (Anemia, Suspected GI Bleed) Documentation of Mechanical Device: Intermittent pneumatic compression device Consult Discharge Plan - Plan Instructions: Heart Failure (DC), Chest Pain (DC), Diabetes Mellitus Type 2 in Adults (DC), Chronic Hypertension (DC), Pneumonia (DC), Joint Replacement Surgery, Component Assembler (GEN) Referrals: Tawana Quintero, TECHNICAL SUPPORT DIRECTOR [Primary Care Provider] - <Andie Ryan - Last Filed: 02/14/18 17:07> Date of Encounter: 02/14/18 - Time Spent With Patient Total time spent is greater than 50% in coordination of care (as documented) at patient's floor/unit and/or counseling patient: - Constitutional Vitals: Temp Pulse Resp BP Pulse Ox 98.4 F 80 19 163/70 95 02/14/18 16:28 02/14/18 16:28 02/14/18 16:28 02/14/18 16:28 02/14/18 16:28 Internal Medicine: Result - Labs CBC & Chem 7: 02/14/18 07:46 02/14/18 07:46 Labs: Short CBC 02/14/18 Range/Units 07:46 WBC 6.2 (4.3-11.1) K/mcL Hgb 8.3 L (11.5-15.4) g/dL Hct 27.0 L (35.3-44.9) % Plt Count 180 (140-400) K/mcL BMP 02/14/18 07:46 Sodium 138 Potassium 4.1 Chloride 99 Carbon Dioxide 26 BUN 24 H Creatinine 4.11 H Glucose 195 H Calcium 8.3 L - ABG Interpretation ABG results: PT/INR, D-dimer PT 12.5 Seconds (9.4-12.1) H 02/14/18 07:46 - Impressions Impressions Chest CT 02/12/18 10:41 IMPRESSION: 1. Jlkny-cv-cljuarcr loculated left pleural effusion posterior to the left mid lung. A trace free flowing left pleural effusion is also present. 2. Patchy airspace consolidation centrally in the left upper lobe, consistent with pneumonia. 3. Moderate right-sided pleural effusion which is free flowing. Right lower lobe atelectasis and/or consolidation is present. 4. Cardiomegaly with findings suggestive of mild pulmonary edema. D/ / 02/12/2018 14:30:32 Esteban Amor MD / [facility] Interpreting Provider: Esteban Amor MD Needle Aspiration CT 02/14/18 00:00 IMPRESSION: Successful CT guided placement of a right chest tube D/ / Carlos Benites MD / Carlos Benites MD Interpreting Provider: Carlos Benites MD - Attending Attestation I saw and examined this patient independently, and my medical decision making was reviewed with the resident physician on 02/14/2018. I agree with the documented findings, assessment and treatment plan as described in the progress note.
--- NOTE | 2018-02-14 10:26 | Palliative Progress Note ---
Date of Encounter: 02/14/18 Time of Encounter: 09:35 - Assessment and plan (1) Nausea and vomiting Current Visit: Yes Status: Acute Assessment and plan: Much improved on current meds and dialysis. No use of any when necessary antiemetics in 3 days Qualifiers: Vomiting type: unspecified Vomiting Intractability: non-intractable Qualified Code(s): R11.2 - Nausea with vomiting, unspecified (2) Ventilator associated pneumonia Current Visit: Yes Status: Resolved Assessment and plan: No infiltrate has been noted. Patient is on treatment per the hospitalist team (3) NSTEMI (non-ST elevated myocardial infarction) Current Visit: Yes Status: Resolved Assessment and plan: No further chest pain, patient is awaiting stability of left heart catheter after the kidneys are stabilized cardiology is following (4) CKD (chronic kidney disease) stage 4, GFR 15-29 ml/min Current Visit: Yes Status: Chronic Assessment and plan: Tolerating dialysis well. Still has some urine output does feel better after having been dialyzed. (5) Left arm weakness Current Visit: Yes Status: Resolved Assessment and plan: No complaints of this morning. No change (6) Goals of care, counseling/discussion Current Visit: Yes Status: Acute Assessment and plan: Status well-established DNR CCA DNI. However the patient is still interested in testing treatment if it will benefit her. He is however sick and tired of being sick and tired and is made this very clear. Patient has unfortunately been through a great deal recently, this is all acute and potentially could be pulled through. At this time I do not feel the patient meets hospice criteria except if she were to stop the dialysis and the function did not return. Negative is following at a distance. Patient's nausea is improved on the current medications continue to follow, however as already noted from a distance. We will continue as noted above. - Time Spent With Patient Total time spent is greater than 50% in coordination of care (as documented) at patient's floor/unit and/or counseling patient: - Subjective Interval history: The patient states she is tolerating dialysis quite well. Feels that her breathing is a little worse this morning. He is unclear if the patient's can have cardiac catheterization today or tomorrow. - Constitutional Vitals: Abnormal lab results RBC 2.82 M/mcL (3.82-4.97) L 02/14/18 07:46 Hgb 8.3 g/dL (11.5-15.4) L 02/14/18 07:46 Hct 27.0 % (35.3-44.9) L 02/14/18 07:46 MCHC 30.7 g/dL (31.6-35.5) L 02/14/18 07:46 RDW 14.6 % (11.5-14.5) H 02/14/18 07:46 Immature Plt Fraction 7.6 % (1.1-6.1) H 02/07/18 04:17 APTT 97.5 Seconds (26.0-36.0) H 02/01/18 11:18 BUN 24 mg/dL (8-23) H 02/14/18 07:46 Creatinine 4.11 mg/dL (0.60-1.20) H 02/14/18 07:46 Est GFR ( Amer) 13 (> 60) L 02/14/18 07:46 Est GFR (Non-Af Amer) 11 (> 60) L 02/14/18 07:46 Glucose 195 mg/dL (70-105) H 02/14/18 07:46 POC Glucose 162 mg/dL (70-99) H 02/13/18 18:49 Uric Acid 8.2 mg/dL (2.3-7.6) H 01/31/18 12:27 Calcium 8.3 mg/dL (8.6-10.3) L 02/14/18 07:46 Transferrin 201 mg/dL (203-362) L 02/09/18 13:32 Alkaline Phosphatase 110 Units/L (34-104) H 02/10/18 03:52 Troponin I 0.75 ng/mL (< 0.04) H* 02/02/18 19:25 Serum Total Protein 5.4 g/dL (6.4-8.9) L 02/10/18 03:52 Albumin 2.7 g/dL (3.5-5.7) L 02/10/18 03:52 Albumin/Globulin Ratio 1.0 (1.1-2.2) L 02/10/18 03:52 Folate 20.0 ng/mL (3.0-16.0) H 02/09/18 13:32 Urine Clarity Cloudy (Clear) A 01/31/18 04:15 Urine Protein 100 mg/dL (Neg-Trace) H 01/31/18 04:15 Urine Ketones Trace mg/dL (Negative) H 01/31/18 04:15 Urine Blood Moderate (Negative) H 01/31/18 04:15 Ur Squamous Epith Cells Many per lpf (None-Few) H 01/31/18 04:15 Microalb/Creat Ratio 269 mcg/mg (Less than 30) H 02/03/18 07:25 Stool Occult Blood Positive (Negative) A 01/26/18 19:48 Complement C4 47 mg/dL (10-40) H 02/02/18 04:24 General appearance: Present: no acute distress - Head Head exam: Present: atraumatic, normal inspection - Respiratory Respiratory exam: Present: decreased breath sounds - Cardiovascular Cardiovascular exam: Present: RRR - GI/Abdominal GI/Abdominal exam: Present: normal bowel sounds, soft. Absent: tenderness - Extremities Exam Extremities exam: Present: pedal edema. Absent: tenderness - Neurological Exam Neurological exam: Present: alert, oriented X3 - Psychiatric Psychiatric exam: Absent: agitated, anxious - Skin Skin exam: Present: dry, warm Palliative Quality Palliative Quality: Screen for Code Status: Yes, Screen for Goals of Care: Yes, Screen for Pain: Yes, If Pain Regimen Started, Initiate Bowel Regimen: Yes, Screen for Nausea/Vomitting: Yes Code Status: 01/26/18 05:29 Resuscitation Status: Active [RES] Routine Comment: Resuscitation Status: [id number] - Labs CBC & Chem 7: 02/14/18 07:46 02/14/18 07:46 Labs: Laboratory Results - last 24 hr 02/12/18 02/13/18 02/13/18 16:26 17:12 18:49 WBC RBC Hgb Hct MCV MCH MCHC RDW Plt Count MPV Sodium Potassium Chloride Carbon Dioxide BUN Creatinine Est GFR ( Amer) Est GFR (Non-Af Amer) BUN/Creatinine Ratio Glucose POC Glucose 221 H 167 H 162 H Calculated Osmolality Calcium 02/14/18 02/14/18 07:46 07:46 WBC 6.2 RBC 2.82 L Hgb 8.3 L Hct 27.0 L MCV 95.7 MCH 29.4 MCHC 30.7 L RDW 14.6 H Plt Count 180 MPV 11.4 Sodium 138 Potassium 4.1 Chloride 99 Carbon Dioxide 26 BUN 24 H Creatinine 4.11 H Est GFR ( Amer) 13 L Est GFR (Non-Af Amer) 11 L BUN/Creatinine Ratio 6 Glucose 195 H POC Glucose Calculated Osmolality 295 Calcium 8.3 L - Impressions Impressions Chest CT 02/12/18 10:41 IMPRESSION: 1. Vchvd-ji-vagidxaa loculated left pleural effusion posterior to the left mid lung. A trace free flowing left pleural effusion is also present. 2. Patchy airspace consolidation centrally in the left upper lobe, consistent with pneumonia. 3. Moderate right-sided pleural effusion which is free flowing. Right lower lobe atelectasis and/or consolidation is present. 4. Cardiomegaly with findings suggestive of mild pulmonary edema. D/ / 02/12/2018 14:30:32 Esteban Amor MD / yovany Interpreting Provider: Esteban Amor MD - ABG Interpretation ABG results: PT/INR, D-dimer PT 11.7 Seconds (9.4-12.1) 02/08/18 09:58 Consult Discharge Plan - Plan Instructions: Heart Failure (DC), Chest Pain (DC), Diabetes Mellitus Type 2 in Adults (DC), Chronic Hypertension (DC), Pneumonia (DC), Joint Replacement Surgery, Barrel Tester (GEN) Referrals: Tawana Quintero THIRD STEEL POURER [Primary Care Provider] -
[2018-02-14 11:32] LABS: INR 1.2; Prothrombin Time 12.5 Seconds (9.4-12.1)
[2018-02-14] MEDS: Insulin NPH/REG 70/30 100 UNIT/ML (x5UNIT) SQ SCH ×2 (11:49→17:47)
--- NOTE | 2018-02-14 14:48 | Pulmonology Consult Note ---
Date of Encounter: 02/14/18 Time of Encounter: 14:47 Assessment and Plan (1) Pleural effusion Current Visit: Yes Status: Acute The patient has bilateral pleural effusions the larger right-sided pleural effusion is most likely secondary to hydrostatic pulmonary edema or possibly related to uremia from renal dysfunction although this is considered less likely. There is a chest tube placed in satisfactory position and is draining serosanguineous fluid the final chemistry I will follow-up including cell count etc. but I do not have any concern that this is an infective process based upon the nature that is free flowing and we will given her underlying cardiovascular/ renal disease I suspect the chest tube can be removed within the next 24-48 hours and if further effusion on a recurrent basis requiring frequent thoracentesis a Pleurx catheter could be considered down the road With regards to the left pleural effusion this one becomes a little more concerning given that it is loculated in nature and is associated with an infiltrate on that side. Although the patient does not have a white count is afebrile and medically quite stable the possibility of a parapneumonic effusion or much less likely empyema is still in the differential and to this end I recommend ultrasound or CT-guided aspiration I do not see a clear and reason for chest tube placement unless the return is zayda puc which as I mentioned I would think to be very unlikely. (2) Acute kidney injury superimposed on CKD Current Visit: Yes Status: Acute This is being managed by the nephrology service she is undergoing hemodialysis which I recommend continued volume removal as tolerated blood pressure is also elevated at this time and she would benefit from a hydrostatic edema standpoint of optimal blood pressure control (3) Pneumonia Current Visit: Yes Status: Acute Patient has a left-sided infiltrate is concerning for pneumonia and persistent cough although no leukocytosis Cultures thus far have been negative Is on coverage for hospital associated pneumonia including Zosyn which in my mind appears appropriate at this time and likely treat for 5-7 days based upon clinical response Qualifiers: Pneumonia type: due to unspecified organism Laterality: left Lung location: upper lobe of lung Qualified Code(s): J18.1 - Lobar pneumonia, unspecified organism (4) NSTEMI (non-ST elevated myocardial infarction) Current Visit: Yes Status: Resolved There is still ongoing discussion about left heart catheterization during this admission per cardiology recommendations Continue to optimize medical management (5) Goals of care, counseling/discussion Current Visit: Yes Status: Acute Patient has had a prolonged hospitalization for which she has had multiple setbacks. She clearly appears saddened by the experience which is understandable she is been seen by palliative care and she wants to remain saving aggressive care this time but does not wish to undergo CPR or intubation In addition to treating underlying medical conditions she would benefit from aggressive physical therapy/occupational therapy as allowed by her cardiovascular status incentive spirometry out of bed to chair etc. I discussed my findings with the primary medicine team thank you for this consultation History of Present Illness Consult date: 02/14/18 Requesting physician: Andie Ryan Reason for consult: pleural effusion Chief complaint: Shortness of breath History of present illness: This is a 73-year-old woman with history of CAD S/P stent and CABG, diabetes, hypertension, CKD S/P recent shoulder arthroscopy who presented to ER for chest/ back pain found evidence of NSTEMI complicated by GI bleed course complicated further by acute kidney injury progressing to need for renal replacement therapy. She has had significant volume overload and with recent dialysis approx 8 lliters of fluid have been removed. Pulmonary was consulted to further right patient because of bilateral pleural effusions one (left) that appeared loculated. She was seen by IR today and a small bore chest tube was placed by on the larger effusion. She has also recently started on treatment for pneumonia with Zosyn. When I spoke with the patient today she states that she has a persistent cough but has not had any fevers chills or hemoptysis. She states and generally she feels weak and has been depressed by this hospitalization. 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 Past Med Surg Social Fam HX - Past Medical History Medical history: coronary artery disease, diabetes, GERD, hyperlipidemia, hypertension, myocardial infarction, renal disease Psychiatric history: no psych history - Past Surgical History Surgical History: coronary bypass (CABG), orthopedic, other (Shoulder scope), other (EGD 2010, colonoscopy greater than 10 year ago) - Social History Smoking Status: Unknown if ever smoked Smokeless Tobacco Status: No Alcohol use: none Drug use: none - Family History Father Living Status: Age at : 89 Cause of : PA Hx Family Cardiac Disorders: Yes (CAD, PA) Mother Living Status: Age at : 67 Cause of : DM, [place] Hx Family Cardiac Disorders: Yes (CAD) Hx Family Endocrine Disorder: Yes (DMII, kidney problems) Medications and Allergies Insulin NPH Hum/Reg Insulin Hm [Novolin 70-30 100 Unit/ml Vial] 12 unit SQ QPM 07/31/16 [History] Insulin NPH Hum/Reg Insulin Hm [Novolin 70-30 100 Unit/ml Vial] 22 unit SQ QAM 07/31/16 [History] Metoprolol [Lopressor] 12.5 mg PO BID 07/31/16 [History] Ranitidine HCl [Heartburn Relief] 150 mg PO BID 07/31/16 [History] Ergocalciferol (VITAMIN D2) [Vitamin D2 (50,000 UNIT)] 50,000 unit PO Q14D 08/01 [History] Rosuvastatin [Crestor] 40 mg PO HS #30 tablet 08/02/16 [Rx] Furosemide [Lasix] 20 mg PO DAILY 01/25/18 [History] Nitroglycerin [Nitrostat] 0.4 mg SL Q5M PRN 01/25/18 [History] 3 Allergy/AdvReac Type Severity Reaction Status Date / Time codeine Allergy Rash Verified 06/27/15 13:40 losartan [From Cozaar] Allergy See Verified 08/01/16 11:26 Comments lisinopril AdvReac Cough Verified 08/01/16 11:26 promethazine [From Phenergan] AdvReac Confusion Verified 02/02/18 14:46 All Systems: The remainder of the systems were reviewed and are negative Physical Examination Vital Signs: Vital Signs, Last 4 Hours Temp Pulse Resp BP Pulse Ox 02/14/18 11:57 98.3 F 78 18 159/65 96 General appearance: no acute distress Eyes: nonicteric ENT: oropharynx moist Effort: normal Auscultation: right: diminished breath sounds, bilateral: rales Cardiovascular: regular rate and rhythm Gastrointestinal: normoactive bowel sounds, soft, non-tender Integumentary: other (Right-sided chest tube in satisfactory position dressing clean dietary and intact there is also a temporary hemodialysis catheter noted in the right internal jugular without erythema or palpable cords) Extremities: no cyanosis, no edema, edema (b/l LE edema ) Musculoskeletal: no deformities normal mental status, non-focal exam depressed Results - Laboratory Findings CBC and BMP: 02/14/18 07:46 02/14/18 07:46 PT/INR, D-dimer PT 12.5 Seconds (9.4-12.1) H 02/14/18 07:46 Abnormal lab findings: Abnormal lab results RBC 2.82 M/mcL (3.82-4.97) L 02/14/18 07:46 Hgb 8.3 g/dL (11.5-15.4) L 02/14/18 07:46 Hct 27.0 % (35.3-44.9) L 02/14/18 07:46 MCHC 30.7 g/dL (31.6-35.5) L 02/14/18 07:46 RDW 14.6 % (11.5-14.5) H 02/14/18 07:46 Immature Plt Fraction 7.6 % (1.1-6.1) H 02/07/18 04:17 PT 12.5 Seconds (9.4-12.1) H 02/14/18 07:46 APTT 97.5 Seconds (26.0-36.0) H 02/01/18 11:18 BUN 24 mg/dL (8-23) H 02/14/18 07:46 Creatinine 4.11 mg/dL (0.60-1.20) H 02/14/18 07:46 Est GFR ( Amer) 13 (> 60) L 02/14/18 07:46 Est GFR (Non-Af Amer) 11 (> 60) L 02/14/18 07:46 Glucose 195 mg/dL (70-105) H 02/14/18 07:46 POC Glucose 183 mg/dL (70-99) H 02/14/18 07:59 Uric Acid 8.2 mg/dL (2.3-7.6) H 01/31/18 12:27 Calcium 8.3 mg/dL (8.6-10.3) L 02/14/18 07:46 Transferrin 201 mg/dL (203-362) L 02/09/18 13:32 Alkaline Phosphatase 110 Units/L (34-104) H 02/10/18 03:52 Troponin I 0.75 ng/mL (< 0.04) H* 02/02/18 19:25 Serum Total Protein 5.4 g/dL (6.4-8.9) L 02/10/18 03:52 Albumin 2.7 g/dL (3.5-5.7) L 02/10/18 03:52 Albumin/Globulin Ratio 1.0 (1.1-2.2) L 02/10/18 03:52 Folate 20.0 ng/mL (3.0-16.0) H 02/09/18 13:32 Urine Clarity Cloudy (Clear) A 01/31/18 04:15 Urine Protein 100 mg/dL (Neg-Trace) H 01/31/18 04:15 Urine Ketones Trace mg/dL (Negative) H 01/31/18 04:15 Urine Blood Moderate (Negative) H 01/31/18 04:15 Ur Squamous Epith Cells Many per lpf (None-Few) H 01/31/18 04:15 Microalb/Creat Ratio 269 mcg/mg (Less than 30) H 02/03/18 07:25 Stool Occult Blood Positive (Negative) A 01/26/18 19:48 Complement C4 47 mg/dL (10-40) H 02/02/18 04:24 - Diagnostic Findings Chest x-ray: report reviewed, image reviewed CT scan - chest: report reviewed, image reviewed - Clinical Findings Intake & Output: Intake & Output 02/13/18 02/14/18 02/14/18 23:59 07:59 15:59 Intake Total 220 / 220 0 / 0 200 / 200 Output Total 25 / 25 100 / 100 Balance 220 / 220 -25 / -25 100 / 100 Weight 67.8 kg Consult Discharge Plan - Plan Instructions: Heart Failure (DC), Chest Pain (DC), Diabetes Mellitus Type 2 in Adults (DC), Chronic Hypertension (DC), Pneumonia (DC), Joint Replacement Surgery, Principal Account Clerk (GEN) Referrals: Tawana Quintero, FUR FINISHER [Primary Care Provider] -
[2018-02-14 15:05] LABS: Appearance of Pleural Fl Hazy (Clear)
[2018-02-14 15:06] LABS: RBC,Pleural Fluid < 0.002 M/mcL
[2018-02-14 15:16] LABS: Total Protein,Pleural Fluid < 3.0 g/dL (No Ref Range)
[2018-02-14] MEDS: Ondansetron 4 MG/2 ML VIAL IVP PRN (15:33)
[2018-02-14] MEDS: Acetaminophen 325 MG TABLET PO PRN (17:52)
--- NOTE | 2018-02-14 23:12 | Nephrology Progress Note ---
Date of Encounter: 02/14/18 Time of Encounter: 12:00 - Assessment and Plan (1) Acute kidney injury superimposed on CKD Current Visit: Yes Status: Acute SCr still poor with no signs of renal recovery, s/p HD yesterday with 4 liter UF. Next HD planned tomorrow UOP not documented in the past 24hrs Will plan for permcath when stable Continue to avoid nephrotoxins if possible (2) CKD (chronic kidney disease) stage 4, GFR 15-29 ml/min Current Visit: Yes Status: Chronic Baseline GFR typically in the 20s and on occasion up to 30 (3) Pneumonia Current Visit: Yes Status: Acute Abx per primary team. Thoracentesis/chest tube today Qualifiers: Pneumonia type: due to unspecified organism Laterality: left Lung location: upper lobe of lung Qualified Code(s): J18.1 - Lobar pneumonia, unspecified organism Subjective Principal diagnosis: NSTEMI, CKD, anemia Interval history: Pt seen and examined s/p HD yesterday with 4 liters removed. Complaining of persistent cough with sob and fatigue as a result. She is open to thoracentesis as she has had in the past, wants to feel better Objective - Vital Signs Vital signs: Vital Signs Temp Pulse Resp BP Pulse Ox 02/14/18 21:00 98.7 F 81 19 149/62 96 02/14/18 16:28 98.4 F 80 19 163/70 95 02/14/18 11:57 98.3 F 78 18 159/65 96 02/14/18 08:01 98.3 F 86 19 169/80 96 02/14/18 03:00 98.4 F 80 19 158/65 96 02/14/18 01:32 157/59 02/14/18 00:12 98.6 F 79 16 163/68 97 Intake and Output 02/14/18 02/14/18 02/14/18 07:59 15:59 23:59 Intake Total 0 / 0 300 / 300 100 / 100 Output Total 25 / 25 239 / 239 0 / 0 Balance -25 / -25 61 / 61 100 / 100 Intake: IV Fluids 100 / 100 100 / 100 Zosyn 3.375 GM In 0.9 % Sodium 100 / 100 100 / 100 Chloride (Mini-Bag +) 100 ML @ 25 mls/hr IVPB Q12HR [facility] Rx#: [id number] Oral 0 / 0 200 / 200 Output: Urine 25 / 25 100 / 100 0 / 0 Chest Tube Drainage 139 / 139 Right Lateral Chest 139 / 139 Other: Meal Lunch Percent of Meal Consumed 40% Stool Size Smear Small Stool Consistency formed Stool Color Brown Weight 67.8 kg Blood Glucose* 218 94 Patient Weight 02/14/18 23:59 Weight 67.8 kg - General Appearance General appearance: Present: chronically ill, fatigue, frail EENT: Present: ATNC, mucous membranes dry Neck: Present: no JVD, supple Respiratory: Present: course breath sounds Additional Comments: decreased BS bases bilat R>L Cardiology: Present: edema, normal S1, normal S2 Dialysis Vascular Access: Venous Catheter (temp line) Gastrointestinal: Present: no tenderness, no guarding Integumentary: Present: warm and dry Neurologic: Present: no focal deficit Musculoskeletal: Present: no deformities Psychiatric: Present: mood/affect appropriate - Lab 02/14/18 07:46 02/14/18 07:46 Most recent lab results Calcium 8.3 mg/dL (8.6-10.3) L 02/14/18 07:46 Magnesium 1.9 mg/dL (1.6-2.6) 02/06/18 04:56 Urine Creatinine 52 mg/dL 02/03/18 07:25 - VTE Reasons for not Prescribing Prophylaxis: Medical contraindication (Anemia, Suspected GI Bleed) Documentation of Mechanical Device: Intermittent pneumatic compression device Consult Discharge Plan - Plan Instructions: Heart Failure (DC), Chest Pain (DC), Diabetes Mellitus Type 2 in Adults (DC), Chronic Hypertension (DC), Pneumonia (DC), Joint Replacement Surgery, Medical Writer (GEN) Referrals: Tawana Quintero, [employer] [Primary Care Provider] -
[2018-02-15] MEDS: Insulin LISPRO 300 UNITS/3 ML VIAL SQ SCH ×5 (00:21→21:47)
[2018-02-15 05:13] LABS: Hematocrit 29.6 % (35.3-44.9); Mean Corpuscular HGB Conc 30.4 g/dL (31.6-35.5); Mean Corpuscular Hemoglobin 29.6 pg (28.0-33.3); Mean Corpuscular Volume 97.4 fL (83.0-100.0); Mean Platelet Volume 11.4 fL (9.4-12.4); Platelet Count 159 K/mcL (140-400); Red Blood Count 3.04 M/mcL (3.82-4.97); Red Cell Distribution Width 14.4 % (11.5-14.5)
[2018-02-15 05:31] LABS: Calcium 8.5 mg/dL (8.6-10.3); Potassium 4.3 mEq/L (3.5-5.1)
[2018-02-15] MEDS: *HR* Heparin 5,000 UNIT/ML VIAL SQ SCH ×2 (06:18→17:13)
[2018-02-15] MEDS: Piperacillin/Tazobactam 3.375 GM in 0.9 % Sodium Chloride Mini Bag 100 ML IVPB SCH ×2 (06:19→17:03)
[2018-02-15] MEDS ORDERED: *HR* Heparin 10,000 UNIT/10 ML VIAL IV PRN (07:36)
[2018-02-15] MEDS ORDERED: 0.9 % Sodium Chloride 250 ML IVC PRN (07:36)
[2018-02-15] MEDS: Insulin NPH/REG 70/30 100 UNIT/ML (x5UNIT) SQ SCH ×2 (07:44→17:03)
[2018-02-15] MEDS ORDERED: 0.9 % Sodium Chloride 1,000 ML PRIME SCH (07:45)
[2018-02-15] MEDS ORDERED: 0.9 % Sodium Chloride 1,000 ML ONE (07:59)
--- NOTE | 2018-02-15 08:02 | Pulmonology Progress Note ---
Date of Encounter: 02/15/18 Time of Encounter: 08:02 Assessment and Plan (1) Pleural effusion Current Visit: Yes Status: Acute The pleural fluid studies were analyzed under consistent with transudate of process secondary to hydrostatic pulmonary edema the amount of removal from the chest tube over the last few hours have been very minimal and likely this can be taken out later in the day. She has a left-sided loculated effusion for which I recommend at least aspiration by interventional radiology to rule out possibility of complicated effusion or possibly but much less likely empyema. If they are able to do that today than they could take out the indwelling chest tube on the left at the same time otherwise I am happy taken out later today or tomorrow. She will need to be continued to have treatment for pneumonia for at least 7 days Coronary artery disease including NSTEMI per cardiology management Nephrology is managing the patient for need of renal replacement therapy I discussed my recommendations directly with the primary medicine team and attending physician (2) Acute kidney injury superimposed on CKD Current Visit: Yes Status: Acute (3) Pneumonia Current Visit: Yes Status: Acute Qualifiers: Pneumonia type: due to unspecified organism Laterality: left Lung location: upper lobe of lung Qualified Code(s): J18.1 - Lobar pneumonia, unspecified organism (4) NSTEMI (non-ST elevated myocardial infarction) Current Visit: Yes Status: Resolved (5) Goals of care, counseling/discussion Current Visit: Yes Status: Acute Subjective Principal diagnosis: NSTEMI, CKD, anemia Interval history: No acute events overnight. Artrium chamber attached to chest tube nearly filled with serosanguineous fluid. Patient feels that her breathing is a little bit better Objective PUL Vital signs: Last Vital Signs Temp 99.4 F 02/15/18 06:41 Pulse 84 02/15/18 06:41 Resp 17 02/15/18 06:41 BP 145/56 02/15/18 06:41 Pulse Ox 93 02/15/18 06:41 General appearance: no acute distress Auscultation: left: rhonchi, right: diminished breath sounds Cardiovascular: regular rate and rhythm Extremities: edema non-focal exam depressed Results - Laboratory Findings CBC and BMP: 02/15/18 04:45 02/15/18 04:45 PT/INR, D-dimer PT 12.5 Seconds (9.4-12.1) H 02/14/18 07:46 Abnormal lab findings: Abnormal lab results RBC 3.04 M/mcL (3.82-4.97) L 02/15/18 04:45 Hgb 9.0 g/dL (11.5-15.4) L 02/15/18 04:45 Hct 29.6 % (35.3-44.9) L 02/15/18 04:45 MCHC 30.4 g/dL (31.6-35.5) L 02/15/18 04:45 Immature Plt Fraction 7.6 % (1.1-6.1) H 02/07/18 04:17 PT 12.5 Seconds (9.4-12.1) H 02/14/18 07:46 APTT 97.5 Seconds (26.0-36.0) H 02/01/18 11:18 BUN 30 mg/dL (8-23) H 02/15/18 04:45 Creatinine 5.56 mg/dL (0.60-1.20) H 02/15/18 04:45 Est GFR ( Amer) 9 (> 60) L 02/15/18 04:45 Est GFR (Non-Af Amer) 7 (> 60) L 02/15/18 04:45 BUN/Creatinine Ratio 5 (6-26) L 02/15/18 04:45 Glucose 165 mg/dL (70-105) H 02/15/18 04:45 Uric Acid 8.2 mg/dL (2.3-7.6) H 01/31/18 12:27 Calcium 8.5 mg/dL (8.6-10.3) L 02/15/18 04:45 Transferrin 201 mg/dL (203-362) L 02/09/18 13:32 Alkaline Phosphatase 110 Units/L (34-104) H 02/10/18 03:52 Troponin I 0.75 ng/mL (< 0.04) H* 02/02/18 19:25 Serum Total Protein 5.4 g/dL (6.4-8.9) L 02/10/18 03:52 Albumin 2.7 g/dL (3.5-5.7) L 02/10/18 03:52 Albumin/Globulin Ratio 1.0 (1.1-2.2) L 02/10/18 03:52 Folate 20.0 ng/mL (3.0-16.0) H 02/09/18 13:32 Urine Clarity Cloudy (Clear) A 01/31/18 04:15 Urine Protein 100 mg/dL (Neg-Trace) H 01/31/18 04:15 Urine Ketones Trace mg/dL (Negative) H 01/31/18 04:15 Urine Blood Moderate (Negative) H 01/31/18 04:15 Ur Squamous Epith Cells Many per lpf (None-Few) H 01/31/18 04:15 Microalb/Creat Ratio 269 mcg/mg (Less than 30) H 02/03/18 07:25 Pleural Appearance Hazy (Clear) A 02/14/18 14:00 Stool Occult Blood Positive (Negative) A 01/26/18 19:48 Complement C4 47 mg/dL (10-40) H 02/02/18 04:24 - Microbiology Findings Microbiology Findings: Microbiology, Last 48 Hours 02/14/18 14:00 Gram Stain - Final Pleural Fluid - Clinical Findings Intake & Output: Intake & Output 02/14/18 02/15/18 02/15/18 23:59 07:59 15:59 Intake Total 100 / 100 0 / 0 Output Total 0 / 0 390 / 390 Balance 100 / 100 -390 / -390 Weight 66.7 kg - VTE Reasons for not Prescribing Prophylaxis: Medical contraindication (Anemia, Suspected GI Bleed) Documentation of Mechanical Device: Intermittent pneumatic compression device Consult Discharge Plan - Plan Instructions: Heart Failure (DC), Chest Pain (DC), Diabetes Mellitus Type 2 in Adults (DC), Chronic Hypertension (DC), Pneumonia (DC), Joint Replacement Surgery, Investigation Specialist (GEN) Referrals: Tawana Quintero, [employer] [Primary Care Provider] -
--- NOTE | 2018-02-15 08:10 | Palliative Progress Note ---
Date of Encounter: 02/15/18 Time of Encounter: 07:10 - Assessment and plan (1) Nausea and vomiting Current Visit: Yes Status: Acute Assessment and plan: Much improved on current meds and dialysis. Still an occasional problem, patient did use a dose of Zofran yesterday. Overall she is improved but still having occasional problems. Qualifiers: Qualified Code(s): R11.2 - Nausea with vomiting, unspecified (2) Ventilator associated pneumonia Current Visit: Yes Status: Resolved Assessment and plan: New area was noted, was noted on the 15th of the left side, however pulmonary has seen the patient and does not feel this is likely an infectious disease at this time, however is in the differential. Patient has no fever MAXIMUM TEMPERATURE 99.7 white count is normal. She is on antibiotics. (3) NSTEMI (non-ST elevated myocardial infarction) Current Visit: Yes Status: Resolved Assessment and plan: No further chest pain, patient is awaiting stability of left heart catheter after the kidneys are stabilized cardiology is following Radiology continue to follow date of catheter to be determined by cardiology. (4) CKD (chronic kidney disease) stage 4, GFR 15-29 ml/min Current Visit: Yes Status: Chronic Assessment and plan: Tolerating dialysis well. Still has some urine output does feel better after having been dialyzed. The patient has expressed to me no desire whatsoever to stop dialysis. She would like to get well enough to not need it anymore. (5) Goals of care, counseling/discussion Current Visit: Yes Status: Acute Assessment and plan: Status well-established DNR CCA DNI. However the patient is still interested in testing treatment if it will benefit her. He is however sick and tired of being sick and tired and is made this very clear. Patient has unfortunately been through a great deal recently, this is all acute and potentially could be pulled through. At this time I do not feel the patient meets hospice criteria except if she were to stop the dialysis and the function did not return. Negative is following at a distance. Patient's nausea is improved on the current medications continue to follow, however as already noted from a distance. We will continue as noted above. As above, as already noted the patient has given me no reason to believe that she has changed her mind about desiring real progression that we have in her care. Was to continue getting her dialysis and feels it is beneficial to her. I have discussed this at length with her after school driver as well. We will continue to follow at a distance. - Time Spent With Patient Total time spent is greater than 50% in coordination of care (as documented) at patient's floor/unit and/or counseling patient: - Subjective Interval history: The patient states she is tolerating dialysis quite well. Feels that her breathing is a little better since the chest tube went in she is anticipating dialysis today. He does have a cough which she says is painful around the chest tube and otherwise doing okay with it. - Constitutional Vitals: Abnormal lab results RBC 3.04 M/mcL (3.82-4.97) L 02/15/18 04:45 Hgb 9.0 g/dL (11.5-15.4) L 02/15/18 04:45 Hct 29.6 % (35.3-44.9) L 02/15/18 04:45 MCHC 30.4 g/dL (31.6-35.5) L 02/15/18 04:45 Immature Plt Fraction 7.6 % (1.1-6.1) H 02/07/18 04:17 PT 12.5 Seconds (9.4-12.1) H 02/14/18 07:46 APTT 97.5 Seconds (26.0-36.0) H 02/01/18 11:18 BUN 30 mg/dL (8-23) H 02/15/18 04:45 Creatinine 5.56 mg/dL (0.60-1.20) H 02/15/18 04:45 Est GFR ( Amer) 9 (> 60) L 02/15/18 04:45 Est GFR (Non-Af Amer) 7 (> 60) L 02/15/18 04:45 BUN/Creatinine Ratio 5 (6-26) L 02/15/18 04:45 Glucose 165 mg/dL (70-105) H 02/15/18 04:45 Uric Acid 8.2 mg/dL (2.3-7.6) H 01/31/18 12:27 Calcium 8.5 mg/dL (8.6-10.3) L 02/15/18 04:45 Transferrin 201 mg/dL (203-362) L 02/09/18 13:32 Alkaline Phosphatase 110 Units/L (34-104) H 02/10/18 03:52 Troponin I 0.75 ng/mL (< 0.04) H* 02/02/18 19:25 Serum Total Protein 5.4 g/dL (6.4-8.9) L 02/10/18 03:52 Albumin 2.7 g/dL (3.5-5.7) L 02/10/18 03:52 Albumin/Globulin Ratio 1.0 (1.1-2.2) L 02/10/18 03:52 Folate 20.0 ng/mL (3.0-16.0) H 02/09/18 13:32 Urine Clarity Cloudy (Clear) A 01/31/18 04:15 Urine Protein 100 mg/dL (Neg-Trace) H 01/31/18 04:15 Urine Ketones Trace mg/dL (Negative) H 01/31/18 04:15 Urine Blood Moderate (Negative) H 01/31/18 04:15 Ur Squamous Epith Cells Many per lpf (None-Few) H 01/31/18 04:15 Microalb/Creat Ratio 269 mcg/mg (Less than 30) H 02/03/18 07:25 Pleural Appearance Hazy (Clear) A 02/14/18 14:00 Stool Occult Blood Positive (Negative) A 01/26/18 19:48 Complement C4 47 mg/dL (10-40) H 02/02/18 04:24 General appearance: Present: no acute distress - Head Head exam: Present: atraumatic, normal inspection - Respiratory Respiratory exam: Present: decreased breath sounds - Cardiovascular Cardiovascular exam: Present: RRR - GI/Abdominal GI/Abdominal exam: Present: normal bowel sounds, soft. Absent: tenderness - Extremities Exam Extremities exam: Present: pedal edema (But decreased) - Neurological Exam Neurological exam: Present: alert, oriented X3 - Psychiatric Psychiatric exam: Absent: agitated, anxious - Skin Skin exam: Present: dry, warm Palliative Quality Palliative Quality: Screen for Code Status: Yes, Screen for Goals of Care: Yes, Screen for Pain: Yes, If Pain Regimen Started, Initiate Bowel Regimen: Yes, Screen for Nausea/Vomitting: Yes Code Status: 01/26/18 05:29 Resuscitation Status: Active [RES] Routine Comment: Resuscitation Status: [id number] - Labs CBC & Chem 7: 02/15/18 04:45 02/15/18 04:45 Labs: Laboratory Results - last 24 hr 02/14/18 02/14/18 02/14/18 07:46 07:46 07:46 WBC 6.2 RBC 2.82 L Hgb 8.3 L Hct 27.0 L MCV 95.7 MCH 29.4 MCHC 30.7 L RDW 14.6 H Plt Count 180 MPV 11.4 PT 12.5 H INR 1.2 Sodium 138 Potassium 4.1 Chloride 99 Carbon Dioxide 26 BUN 24 H Creatinine 4.11 H Est GFR ( Amer) 13 L Est GFR (Non-Af Amer) 11 L BUN/Creatinine Ratio 6 Glucose 195 H POC Glucose Calculated Osmolality 295 Calcium 8.3 L Pleural Fluid Volume Pleural Appearance Pleural pH Pleural RBC Pleural Tot Nuc Cell Pleural Neutrophils Pleural Band Neuts Pleural Eosinophils Pleural Basophils Pleural Lymphocytes % Pleural Monocytes % Pleural Other Cells % Pleural Total Protein Pleural LDH Pleural Glucose Pleural Cholesterol 02/14/18 02/14/18 02/14/18 07:59 11:59 14:00 WBC RBC Hgb Hct MCV MCH MCHC RDW Plt Count MPV PT INR Sodium Potassium Chloride Carbon Dioxide BUN Creatinine Est GFR ( Amer) Est GFR (Non-Af Amer) BUN/Creatinine Ratio Glucose POC Glucose 183 H 218 H Calculated Osmolality Calcium Pleural Fluid Volume 40.0 Pleural Appearance Hazy A Pleural pH Pleural RBC < 0.002 Pleural Tot Nuc Cell 14 Pleural Neutrophils 19.0 Pleural Band Neuts 1.0 Pleural Eosinophils Test Not Performed Pleural Basophils Test Not Performed Pleural Lymphocytes % 77.0 Pleural Monocytes % 3.0 Pleural Other Cells % Test Not Performed Pleural Total Protein Pleural LDH Pleural Glucose Pleural Cholesterol 02/14/18 02/14/18 02/14/18 14:00 14:00 14:00 WBC RBC Hgb Hct MCV MCH MCHC RDW Plt Count MPV PT INR Sodium Potassium Chloride Carbon Dioxide BUN Creatinine Est GFR ( Amer) Est GFR (Non-Af Amer) BUN/Creatinine Ratio Glucose POC Glucose Calculated Osmolality Calcium Pleural Fluid Volume Pleural Appearance Pleural pH 8.00 Pleural RBC Pleural Tot Nuc Cell Pleural Neutrophils Pleural Band Neuts Pleural Eosinophils Pleural Basophils Pleural Lymphocytes % Pleural Monocytes % Pleural Other Cells % Pleural Total Protein Pleural LDH 51 Pleural Glucose 226 Pleural Cholesterol 02/14/18 02/14/18 02/14/18 14:00 16:30 19:46 WBC RBC Hgb Hct MCV MCH MCHC RDW Plt Count MPV PT INR Sodium Potassium Chloride Carbon Dioxide BUN Creatinine Est GFR ( Amer) Est GFR (Non-Af Amer) BUN/Creatinine Ratio Glucose POC Glucose 80 94 Calculated Osmolality Calcium Pleural Fluid Volume Pleural Appearance Pleural pH Pleural RBC Pleural Tot Nuc Cell Pleural Neutrophils Pleural Band Neuts Pleural Eosinophils Pleural Basophils Pleural Lymphocytes % Pleural Monocytes % Pleural Other Cells % Pleural Total Protein < 3.0 Pleural LDH Pleural Glucose Pleural Cholesterol < 25 02/14/18 02/15/18 02/15/18 20:58 04:45 04:45 WBC 5.8 RBC 3.04 L Hgb 9.0 L Hct 29.6 L MCV 97.4 MCH 29.6 MCHC 30.4 L RDW 14.4 Plt Count 159 MPV 11.4 PT INR Sodium 137 Potassium 4.3 Chloride 101 Carbon Dioxide 25 BUN 30 H Creatinine 5.56 H Est GFR ( Amer) 9 L Est GFR (Non-Af Amer) 7 L BUN/Creatinine Ratio 5 L Glucose 165 H POC Glucose 94 Calculated Osmolality 294 Calcium 8.5 L Pleural Fluid Volume Pleural Appearance Pleural pH Pleural RBC Pleural Tot Nuc Cell Pleural Neutrophils Pleural Band Neuts Pleural Eosinophils Pleural Basophils Pleural Lymphocytes % Pleural Monocytes % Pleural Other Cells % Pleural Total Protein Pleural LDH Pleural Glucose Pleural Cholesterol - Impressions Impressions Needle Aspiration CT 02/14/18 00:00 IMPRESSION: Successful CT guided placement of a right chest tube D/ / Carlos Benites MD / Carlos Benites MD Interpreting Provider: Carlos Benites MD Chest X-Ray 02/15/18 06:53 IMPRESSION: Interval placement of a right pleural catheter with interval decrease in size of right pleural effusion. Otherwise stable chest. No pneumothorax. D/ / 02/15/2018 07:28:00 Ese Fuentes MD / [facility] Interpreting Provider: Ese Fuentes MD - ABG Interpretation ABG results: PT/INR, D-dimer PT 12.5 Seconds (9.4-12.1) H 02/14/18 07:46 Consult Discharge Plan - Plan Instructions: Heart Failure (DC), Chest Pain (DC), Diabetes Mellitus Type 2 in Adults (DC), Chronic Hypertension (DC), Pneumonia (DC), Joint Replacement Surgery, Pomologist (GEN) Referrals: Tawana Quintero CNP [Primary Care Provider] -
[2018-02-15] MEDS: Aspirin 81 MG TAB.CHEW PO SCH (08:21)
[2018-02-15] MEDS: Cholecalciferol (D-3) 1,000 UNIT TABLET PO SCH (08:22)
[2018-02-15] MEDS: Famotidine 20 MG TABLET PO SCH (08:22)
[2018-02-15] MEDS: *HR* Acetylcysteine 20% 600 MG/3 ML ORAL SYRINGE PO SCH ×2 (08:23→21:45)
--- NOTE | 2018-02-15 10:48 | Internal Med Progress Note ---
<Anastacio Oscar - Last Filed: 02/15/18 13:47> Date of Encounter: 02/15/18 Time of Encounter: 10:42 - Assessment and plan (1) Cough Current Visit: Yes Status: Acute Assessment and plan: most likely due to fluid status. CXR showed large opacities in left lung and loculated pleural effusions. Chest CT reported Loculated L effusion and infiltrate. R side effusion as well. Symptomatically patient is improving. Patient was seen laying flat today - Zosyn day 4 - Right chest tube placed to drain pleural fluid yesterday; Left pleural effusion consulted to IR today to be aspirated per pulm - LDH and total protein of serum ordered to calculate out light's criteria. (2) Coronary artery disease Current Visit: Yes Status: Chronic Assessment and plan: Reconsulted Cardio. They will coordinate with nephrology for C. - appreciate Cardio's recommendation Qualifiers: Coronary Disease-Associated Artery/Lesion type: bypass graft [place] vs. transplanted heart: [place] heart Associated angina: without angina Qualified Code(s): I25.810 - Atherosclerosis of coronary artery bypass graft(s) without angina pectoris (3) Type 2 diabetes mellitus with diabetic nephropathy, with long-term current use of insulin Current Visit: Yes Status: Chronic Assessment and plan: SSI medium continue, will continue to closely monitor (4) Essential hypertension Current Visit: Yes Status: Chronic Assessment and plan: Controlled at this time. (5) DVT prophylaxis Current Visit: Yes Status: Acute Assessment and plan: On heparin sq (6) NSTEMI (non-ST elevated myocardial infarction) Current Visit: Yes Status: Resolved Assessment and plan: Pt admitted with chest pain and troponins elevated c/w acute NSTEMI. - cardio reconsulted - discussed with cardiology DIAGNOSTICS TECH today, may have LHC today (7) Anemia Current Visit: Yes Status: Suspected Assessment and plan: Following. remains relatively stable today Qualifiers: Anemia type: due to chronic kidney disease Chronic kidney disease stage: stage 4 (severe) Qualified Code(s): N18.4 - Chronic kidney disease, stage 4 ( severe); D63.1 - Anemia in chronic kidney disease; D63.1 - Anemia in chronic kidney disease (8) CKD (chronic kidney disease) stage 4, GFR 15-29 ml/min Current Visit: Yes Status: Chronic Assessment and plan: Chronic issue (9) Acute renal failure due to tubular necrosis Current Visit: Yes Status: Suspected Assessment and plan: Patient has had 7.8 L removed in 3 days from HD last week, received HD two days ago with 4.6 L off and receiving HD today. Patient is tolerating HD well. - appreciate nephrology and palliative care input - continue to monitor I/O - avoid nephrotoxins - renal diet (10) Goals of care, counseling/discussion Current Visit: Yes Status: Acute Assessment and plan: Palliative care was consulted. Status changed to DNR/DNI/CCA. Patient has agreed to do temp HD. - appreciate palliative care's input. (11) Pneumonia Current Visit: Yes Status: Acute Assessment and plan: see above Qualifiers: Pneumonia type: due to unspecified organism Laterality: left Lung location: upper lobe of lung Qualified Code(s): J18.1 - Lobar pneumonia, unspecified organism - Time Spent With Patient Total time spent is greater than 50% in coordination of care (as documented) at patient's floor/unit and/or counseling patient: - Subjective Interval history: Patient is seen and examined in Dialysis. Patient states that she is breathing a lot better after her right chest tube was placed yesterday but she is sore where the tube is placed. Patient reports feeling tired, but would like to continue with interventions if she will improve. She appreciated discussing her future outcomes with palliative care yesterday. Patient denies cramping, nausea, vomiting, CP, SOB. All other ROS is negative. - Constitutional Vitals: Temp Pulse Resp BP Pulse Ox 99.4 F 84 17 145/56 93 02/15/18 06:41 02/15/18 06:41 02/15/18 06:41 02/15/18 06:41 02/15/18 06:41 General appearance: Present: cooperative, mild distress, A&O X 3, pleasant, obese, answers questions appropriately - Head Head exam: Present: atraumatic, normocephalic - ENT ENT exam: Present: mucous membranes dry - Respiratory Respiratory exam: Present: wheezes - Cardiovascular Cardiovascular exam: Present: RRR - GI/Abdominal GI/Abdominal exam: Present: hypoactive bowel sounds, soft. Absent: distended, firm, guarding, rebound, rigid - Extremities Exam Extremities exam: Present: pedal edema (1+ BLE) Internal Medicine: Result - Labs CBC & Chem 7: 02/15/18 04:45 02/15/18 04:45 Labs: Short CBC 02/15/18 Range/Units 04:45 WBC 5.8 (4.3-11.1) K/mcL Hgb 9.0 L (11.5-15.4) g/dL Hct 29.6 L (35.3-44.9) % Plt Count 159 (140-400) K/mcL BMP 02/15/18 04:45 Sodium 137 Potassium 4.3 Chloride 101 Carbon Dioxide 25 BUN 30 H Creatinine 5.56 H Glucose 165 H Calcium 8.5 L - ABG Interpretation ABG results: PT/INR, D-dimer PT 12.5 Seconds (9.4-12.1) H 02/14/18 07:46 - Impressions Impressions Needle Aspiration CT 02/14/18 00:00 IMPRESSION: Successful CT guided placement of a right chest tube D/ / Carlos Benites MD / Carlos Benites MD Interpreting Provider: Carlos Benites MD Chest X-Ray 02/15/18 06:53 IMPRESSION: Interval placement of a right pleural catheter with interval decrease in size of right pleural effusion. Otherwise stable chest. No pneumothorax. D/ / 02/15/2018 07:28:00 Ese Fuentes MD / [facility] Interpreting Provider: Ese Fuentes MD - VTE Reasons for not Prescribing Prophylaxis: Medical contraindication (Anemia, Suspected GI Bleed) Documentation of Mechanical Device: Intermittent pneumatic compression device Consult Discharge Plan - Plan Instructions: Heart Failure (DC), Chest Pain (DC), Diabetes Mellitus Type 2 in Adults (DC), Chronic Hypertension (DC), Pneumonia (DC), Joint Replacement Surgery, Certified Medication Aide (GEN) Referrals: Tawana Quintero SOFT MUD MOLDER [Primary Care Provider] - <Que Carvalho - Last Filed: 02/15/18 14:54> Date of Encounter: 02/15/18 - Assessment and plan (1) Coronary artery disease Current Visit: Yes Status: Chronic Qualifiers: Coronary Disease-Associated Artery/Lesion type: bypass graft [place] vs. transplanted heart: [place] Associated angina: without angina Qualified Code(s): I25.810 - Atherosclerosis of coronary artery bypass graft(s) without angina pectoris (2) Type 2 diabetes mellitus with diabetic nephropathy, with long-term current use of insulin Current Visit: Yes Status: Chronic (3) Essential hypertension Current Visit: Yes Status: Chronic (4) DVT prophylaxis Current Visit: Yes Status: Acute (5) NSTEMI (non-ST elevated myocardial infarction) Current Visit: Yes Status: Resolved (6) Anemia Current Visit: Yes Status: Suspected Qualifiers: Anemia type: due to chronic kidney disease Chronic kidney disease stage: stage 4 (severe) Qualified Code(s): N18.4 - Chronic kidney disease, stage 4 ( severe); D63.1 - Anemia in chronic kidney disease; D63.1 - Anemia in chronic kidney disease (7) CKD (chronic kidney disease) stage 4, GFR 15-29 ml/min Current Visit: Yes Status: Chronic (8) Acute renal failure due to tubular necrosis Current Visit: Yes Status: Suspected (9) Goals of care, counseling/discussion Current Visit: Yes Status: Acute (10) Cough Current Visit: Yes Status: Acute (11) Pneumonia Current Visit: Yes Status: Acute Qualifiers: Pneumonia type: due to unspecified organism Laterality: left Lung location: upper lobe of lung Qualified Code(s): J18.1 - Lobar pneumonia, unspecified organism - Time Spent With Patient Total time spent is greater than 50% in coordination of care (as documented) at patient's floor/unit and/or counseling patient: - Constitutional Vitals: Temp Pulse Resp BP Pulse Ox 98.6 F 96 18 148/58 97 02/15/18 13:46 02/15/18 13:46 02/15/18 13:46 02/15/18 13:46 02/15/18 13:46 Internal Medicine: Result - Labs CBC & Chem 7: 02/15/18 04:45 02/15/18 04:45 Labs: Short CBC 02/15/18 Range/Units 04:45 WBC 5.8 (4.3-11.1) K/mcL Hgb 9.0 L (11.5-15.4) g/dL Hct 29.6 L (35.3-44.9) % Plt Count 159 (140-400) K/mcL BMP 02/15/18 04:45 Sodium 137 Potassium 4.3 Chloride 101 Carbon Dioxide 25 BUN 30 H Creatinine 5.56 H Glucose 165 H Calcium 8.5 L - ABG Interpretation ABG results: PT/INR, D-dimer PT 12.5 Seconds (9.4-12.1) H 02/14/18 07:46 - Impressions Impressions Chest X-Ray 02/15/18 06:53 IMPRESSION: Interval placement of a right pleural catheter with interval decrease in size of right pleural effusion. Otherwise stable chest. No pneumothorax. D/ / 02/15/2018 07:28:00 [facility] Inter[facility]ting Provider: Ese Fuentes MD - Attending Attestation I performed an independent interview and examin of this [facility], internal medicine resident. I agree with his findings, assessment and plan. I also discussed the case with pulmonary medicine. Plan for today is to hopefully remove the right chest drain and perform drainage on the left pleural effusion. Rule out infection. She continues on dialysis. Cardiology is planning left heart catheterization soon. The above note reflects our discussion on rounds.
[2018-02-15] MEDS: *HR* LORazepam 0.5 MG TABLET PO PRN (11:10)
--- NOTE | 2018-02-15 15:09 | IR Procedure Note ---
Date of procedure: 02/15/18 Consent Obtained: Written consent Timeout: Correct patient and procedure verified, Correct site verified, Time out performed, Skin prep completed Local anesthetic: Lidocaine 1% Indications: Loculated left pleural effusion Procedure Performed: CT Guided left thoracentesis Was there an healthcare administrative assistant present: No Estimated blood loss (cc): 0 Complications: None; Tolerated procedure well Post Procedure Treatment Plan: Monitor on floor Specimen: Nurse checking with primary service
--- NOTE | 2018-02-15 15:12 | Cardiology Progress Note ---
Date of Encounter: 02/15/18 Time of Encounter: 14:00 Assessment and Plan (1) NSTEMI (non-ST elevated myocardial infarction) Current Visit: Yes Status: Resolved Per cardiology: -Concern for NSTEMI on admission. 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 Reported nausea, diaphoresis, SOB. -Troponin, 0.03, 0.71, 5.22, 8.76, 8.03 -Initial EKG with depression in lateral leads. -TTE: LVEF 55%, mild- moderate MR, moderate- severe TR, severe pulmonary hypertension, RVSP 70-75mmHg. -Remains volume overloaded on exam. -LHC recommended once stable, patient refuses today. States she does not feel she can lay flat. Will re-evaluate in am. (2) Anemia Current Visit: Yes Status: Suspected Per cardiology: -Anemia concerning for GI bleed during stay. Hgb stable. Recieved one unit PRBC 01/25/18. -01/29/2018 EGD: demonstrated small angiodysplasia in fundus. Biopsies and cauterization. -Per discussion with surgery previously, heparin may be continued and LHC performed. Qualifiers: Anemia type: due to chronic kidney disease Chronic kidney disease stage: stage 4 (severe) Qualified Code(s): N18.4 - Chronic kidney disease, stage 4 ( severe); D63.1 - Anemia in chronic kidney disease; D63.1 - Anemia in chronic kidney disease (3) CKD (chronic kidney disease) Current Visit: Yes Status: Acute Per cardiology: -History of CKD. Followed by [facility]. Dialysis started during stay. Qualifiers: Chronic kidney disease stage: unspecified stage Qualified Code(s): N18.9 - Chronic kidney disease, unspecified Discussion w patient/family: The assessment and plan as outlined above was discussed with the patient who expressed understanding and agreement. All questions were answered. Thank you for involving us in the care of your patient. Please call with any questions. Discussed and reviewed with . Subjective Principal diagnosis: NSTEMI, CKD, anemia Interval history: Patient reports cough today. Reports fatigue. Patient states she does not feel that she could lay flat today. Objective Vital Signs, Last 4 Hours Temp Pulse Resp BP Pulse Ox 02/15/18 13:46 98.6 F 96 18 148/58 97 02/15/18 13:13 99.1 F 18 138/64 02/15/18 12:55 124/59 02/15/18 12:40 136/63 02/15/18 12:25 135/64 02/15/18 12:10 140/61 02/15/18 11:55 139/56 02/15/18 11:40 138/60 02/15/18 11:25 145/62 General: Conversant, No Apparent Distress HEENT: Atraumatic, Normocephaly, Mucus Membranes Moist Neck: No JVD, Normal carotid pulses Cardiac: Reg Rate and Rhythm, Normal S1 and S2, No Murmur Lungs: Other (Lung sounds diminished to bilateral lower bases. Right sided chest tube noted to suction. ) Neuro: Alert and responsive, No focal deficits noted Abdomen: Soft, Non-Tender Skin: No rashes noted on visualized skin Musculoskeletal: No Chest Wall Tenderness Extremities: No Clubbing, No Cyanosis, Normal Pulses, Other (1+ bilateral lower extremity pitting edema. ) Results 02/15/18 04:45 02/15/18 04:45 Lab Results Impressions Chest X-Ray 02/15/18 06:53 IMPRESSION: Interval placement of a right pleural catheter with interval decrease in size of right pleural effusion. Otherwise stable chest. No pneumothorax. D/ / 02/15/2018 07:28:00 Ese Fuentes MD / [facility] Interpreting Provider: Ese Fuentes MD Active Medications Acetaminophen (Tylenol) 650 mg PO Q6HR PRN PRN Reason: Mild Pain/Fever Stop: 07/28/18 05:30 Last Admin: 02/14/18 17:52 Dose: 650 mg Acetylcysteine (Acetylcysteine 20%) 600 mg PO BID [facility] Stop: 08/11/18 09:01 Last Admin: 02/15/18 08:23 Dose: 600 mg Aspirin (Aspirin) 81 mg PO DAILY [facility] Stop: 07/28/18 09:01 Last Admin: 02/15/18 08:21 Dose: 81 mg Benzonatate (Tessalon) 100 mg PO TID PRN PRN Reason: Cough Stop: 08/12/18 13:53 Last Admin: 02/14/18 08:50 Dose: 100 mg Bisacodyl (Dulcolax) 10 mg RC DAILY PRN PRN Reason: Constipation Stop: 08/06/18 13:43 Last Admin: 02/04/18 14:01 Dose: 10 mg Calcium Polycarbophil (Fibercon) 625 mg PO BID [facility] Stop: 08/09/18 09:01 Last Admin: 02/15/18 08:22 Dose: 625 mg Dextrose/Water (Dextrose 50% (Syg)) 25 ml IVP AD PRN PRN Reason: Hypoglycemia Stop: 07/28/18 05:37 Diphenhydramine HCl (Benadryl) 25 mg PO Q8HR PRN PRN Reason: Nausea Stop: 08/10/18 10:51 Last Admin: 02/14/18 01:43 Dose: 25 mg Famotidine (Pepcid) 10 mg PO DAILY [facility] Stop: 08/07/18 09:01 Last Admin: 02/15/18 08:22 Dose: 10 mg Glucagon (Glucagen) 1 mg IM ONCE PRN PRN Reason: Hypoglycemia Stop: 07/28/18 05:37 Glucose (Gluctose) 15 gm PO ONCE PRN PRN Reason: Hypoglycemia Stop: 07/28/18 05:37 Glucose (Gluctose) 30 gm PO ONCE PRN PRN Reason: Hypoglycemia Stop: 07/28/18 05:37 Guaifenesin (Mucinex) 600 mg PO BID PRN PRN Reason: Congestion Stop: 08/10/18 22:16 Last Admin: 02/09/18 23:25 Dose: 600 mg Guaifenesin (Robitussin/Dm) 10 ml PO Q6HR PRN PRN Reason: Cough Stop: 08/12/18 22:16 Last Admin: 02/14/18 11:53 Dose: 10 ml Heparin Sodium (Porcine) (Heparin) 5,000 unit SQ Q12HCO [place] Stop: 08/03/18 18:01 Last Admin: 02/15/18 06:18 Dose: 5,000 unit Hydralazine HCl (Hydralazine) 10 mg IVP Q6HR PRN PRN Reason: Hypertension Stop: 08/13/18 04:41 Last Admin: 02/11/18 04:46 Dose: 10 mg Dextrose (Dextrose 5%) 1,000 mls @ 100 mls/hr IVC .Q10H PRN PRN Reason: HYPOGLYCEMIA Stop: 07/28/18 05:37 Piperacillin Sod/Tazobactam (Sod 3.375 gm/ Sodium Chloride) 100 mls @ 25 mls/ hr IVPB Q12HR [facility] Stop: 08/14/18 18:01 Last Admin: 02/15/18 06:19 Dose: 25 mls/hr Sodium Chloride (0.9 % Sodium Chloride) 250 mls @ 937.5 mls/hr IVC .Q16M PRN PRN Reason: Hypotension Stop: 08/17/18 07:37 Sodium Chloride (0.9 % Sodium Chloride) 1,000 mls @ 0 mls/hr PRIME .Q0M [place] PRN Reason: As Directed Stop: 08/17/18 07:46 Insulin Human Lispro (Humalog) 0 units SQ HS [facility] PRN Reason: Protocol Stop: 08/03/18 21:01 Last Admin: 02/15/18 00:21 Dose: Not Given Insulin Human Lispro (Humalog) 0 units SQ TIDAC [facility] PRN Reason: Protocol Stop: 08/03/18 16:31 Last Admin: 02/15/18 11:09 Dose: Not Given Insulin Isophane/Insulin Regular (Humulin 70/30 Vial) 22 unit SQ QAM [facility] Stop: 08/04/18 09:01 Last Admin: 02/15/18 07:44 Dose: Not Given Insulin Isophane/Insulin Regular (Humulin 70/30 Vial) 12 unit SQ 1630 [facility] Stop: 08/03/18 16:31 Last Admin: 02/14/18 17:47 Dose: Not Given Lorazepam (Ativan) 0.5 mg PO TID PRN PRN Reason: Anxiety Stop: 08/10/18 16:11 Last Admin: 02/15/18 11:10 Dose: 0.5 mg Metoclopramide HCl (Reglan) 10 mg PO QIDAC [facility] Stop: 08/11/18 16:31 Last Admin: 02/15/18 08:22 Dose: 10 mg Metoprolol Tartrate (Lopressor) 2.5 mg IVP Q6HR PRN PRN Reason: Heart Rate- High Stop: 07/28/18 05:35 Last Admin: 01/26/18 05:52 Dose: 2.5 mg Metoprolol Tartrate (Lopressor) 25 mg PO BID [facility] Stop: 08/05/18 18:46 Last Admin: 02/14/18 22:14 Dose: 25 mg Naloxone HCl (Narcan) 0.4 mg IVP Q2MIN PRN PRN Reason: SEE COMMENTS Stop: 07/28/18 05:30 Nitroglycerin (Nitroglycerin) 0.4 mg SL Q5MIN PRN PRN Reason: Chest Pain Stop: 07/27/18 23:54 Last Admin: 01/26/18 00:43 Dose: 0.4 mg Omeprazole (Prilosec) 20 mg PO BIDAC [facility] PRN Reason: Protocol Stop: 08/02/18 16:31 Last Admin: 02/15/18 08:22 Dose: 20 mg Ondansetron HCl (Zofran) 4 mg IVP Q4HR PRN PRN Reason: Nausea And Vomiting Stop: 07/28/18 08:01 Last Admin: 02/14/18 15:33 Dose: 4 mg Rosuvastatin Calcium (Crestor) 10 mg PO HS [facility] Stop: 07/28/18 21:01 Last Admin: 02/14/18 22:14 Dose: 10 mg Throat Lozenges (Cepacol Sore Throat Lozenge) 1 each MM Q2H PRN PRN Reason: Sore Throat Stop: 08/01/18 10:58 Last Admin: 01/31/18 21:45 Dose: 1 each Vitamin D (Vitamin D) 1,000 unit PO DAILY [facility] Stop: 07/30/18 17:46 Last Admin: 02/15/18 08:22 Dose: 1,000 unit Laboratory Tests 02/15/18 02/15/18 04:45 04:45 Hgb 9.0 L Creatinine 5.56 H - Imaging and Cardiology Chest Xray: report reviewed Echo: report reviewed - EKG Interpretation EKG results cardiology: other (Telemetry reviewed with average HR previous 12 hours noted to be 78, SR. PVCs and PACs noted. Short runs of atrial tachycardia noted.) - VTE Reasons for not Prescribing Prophylaxis: Medical contraindication (Anemia, Suspected GI Bleed) Documentation of Mechanical Device: Intermittent pneumatic compression device Consult Discharge Plan - Plan Instructions: Heart Failure (DC), Chest Pain (DC), Diabetes Mellitus Type 2 in Adults (DC), Chronic Hypertension (DC), Pneumonia (DC), Joint Replacement Surgery, Director Records Management (GEN) Referrals: Tawana Quintero, BRIDGE/STRUCTURE INSPECTION TEAM LEADER [Primary Care Provider] -
[2018-02-15 17:35] LABS: RBC,Pleural Fluid < 0.002 M/mcL
[2018-02-15 17:54] LABS: Appearance of Pleural Fl Clear (Clear)
[2018-02-15 18:17] LABS: Glucose,Pleural Fluid 197 mg/dL (No Ref Range); LDH,Pleural Fluid 43 Units/L (No Ref Range); Total Protein,Pleural Fluid < 3.0 g/dL (No Ref Range)
--- NOTE | 2018-02-15 22:30 | Nephrology Progress Note ---
Date of Encounter: 02/15/18 Time of Encounter: 12:00 - Assessment and Plan (1) Acute kidney injury superimposed on CKD Current Visit: Yes Status: Acute SCr still poor with no signs of renal recovery, continue HD with UF goal of 4kg as tolerated UOP documented at 136cc in the past 24hrs Will plan for permcath when stable Continue to avoid nephrotoxins if possible (2) CKD (chronic kidney disease) stage 4, GFR 15-29 ml/min Current Visit: Yes Status: Chronic Baseline GFR typically in the 20s and on occasion up to 30 (3) Pneumonia Current Visit: Yes Status: Acute Abx per primary team and pulm. s/p chest tube Qualifiers: Pneumonia type: due to unspecified organism Laterality: left Lung location: upper lobe of lung Qualified Code(s): J18.1 - Lobar pneumonia, unspecified organism Subjective Principal diagnosis: NSTEMI, CKD, anemia Interval history: Pt seen and examined on HD feeling tired after receiving ativan per HD nurse. s/ p chest tube placement in the right with some relief and less coughing overall. Objective - Vital Signs Vital signs: Vital Signs Temp Pulse Resp BP Pulse Ox 02/15/18 21:00 99.6 F 83 16 144/55 97 02/15/18 13:46 98.6 F 96 18 148/58 97 02/15/18 13:13 99.1 F 18 138/64 02/15/18 12:55 124/59 02/15/18 12:40 136/63 02/15/18 12:25 135/64 02/15/18 12:10 140/61 02/15/18 11:55 139/56 02/15/18 11:40 138/60 02/15/18 11:25 145/62 02/15/18 11:10 142/62 02/15/18 10:55 142/59 02/15/18 10:40 135/62 02/15/18 10:25 154/67 02/15/18 10:10 143/62 02/15/18 09:55 136/66 02/15/18 09:40 163/74 02/15/18 09:25 99.3 F 18 159/70 02/15/18 06:41 99.4 F 84 17 145/56 93 02/15/18 05:00 99 F 79 15 153/52 96 02/15/18 00:46 99.7 F H 75 20 146/51 96 Intake and Output 02/15/18 02/15/18 02/15/18 07:59 15:59 23:59 Intake Total 0 / 0 700 / 700 240 / 240 Output Total 390 / 390 4910 / 4910 0 / 0 Balance -390 / -390 -4210 / -4210 240 / 240 Intake: IV Fluids 100 / 100 Zosyn 3.375 GM In 0.9 % Sodium 100 / 100 Chloride (Mini-Bag +) 100 ML @ 25 mls/hr IVPB Q12HR [facility] Rx#: [id number] Oral 0 / 0 0 / 0 240 / 240 Intake, Rinseback and Flushes 600 / 600 Output: Urine 200 / 200 0 / 0 0 / 0 Total Dialysis (HD) Output 4600 / 4600 Chest Tube Drainage 190 / 190 310 / 310 Right Lateral Chest 190 / 190 310 / 310 Other: Meal Lunch Percent of Meal Consumed 0% Stool Size Moderate Stool Consistency soft Stool Color Brown # Bowel Movement Diapers 1 Weight 66.7 kg Blood Glucose* 174 172 195 Hemodialysis Net Fluid Removed 4000 (mL) Patient Weight 02/15/18 23:59 Weight 66.7 kg - General Appearance General appearance: Present: chronically ill, fatigue, frail EENT: Present: ATNC, mucous membranes moist Neck: Present: no JVD, supple Additional Comments: improved areation ant bilat Cardiology: Present: edema (less overall), normal S1, normal S2 Dialysis Vascular Access: Venous Catheter (temp IJ) Gastrointestinal: Present: no tenderness, no guarding Integumentary: Present: warm and dry Neurologic: Present: no focal deficit Musculoskeletal: Present: no deformities Psychiatric: Present: mood/affect appropriate - Lab 02/15/18 04:45 02/15/18 04:45 Most recent lab results Calcium 8.5 mg/dL (8.6-10.3) L 02/15/18 04:45 Magnesium 1.9 mg/dL (1.6-2.6) 02/06/18 04:56 Urine Creatinine 52 mg/dL 02/03/18 07:25 - VTE Reasons for not Prescribing Prophylaxis: Medical contraindication (Anemia, Suspected GI Bleed) Documentation of Mechanical Device: Intermittent pneumatic compression device Consult Discharge Plan - Plan Instructions: Heart Failure (DC), Chest Pain (DC), Diabetes Mellitus Type 2 in Adults (DC), Chronic Hypertension (DC), Pneumonia (DC), Joint Replacement Surgery, Outside Medical Sales Representative (GEN) Referrals: Tawana Quintero CNP [Primary Care Provider] -
[2018-02-15 23:13] LABS: Lymphocytes,Pleural Fluid 84.6 %; Monocytes,Pleural Fluid 5.8 %
[2018-02-16 05:23] LABS: Hematocrit 27.4 % (35.3-44.9); Hemoglobin 8.4 g/dL (11.5-15.4); Mean Corpuscular HGB Conc 30.7 g/dL (31.6-35.5); Mean Corpuscular Hemoglobin 29.5 pg (28.0-33.3); Mean Corpuscular Volume 96.1 fL (83.0-100.0); Mean Platelet Volume 11.6 fL (9.4-12.4); Platelet Count 164 K/mcL (140-400); Red Blood Count 2.85 M/mcL (3.82-4.97); Red Cell Distribution Width 14.3 % (11.5-14.5)
[2018-02-16 05:38] LABS: Calcium 8.4 mg/dL (8.6-10.3); Potassium 4.3 mEq/L (3.5-5.1)
[2018-02-16] MEDS: *HR* Heparin 5,000 UNIT/ML VIAL SQ SCH ×2 (06:49→17:11)
[2018-02-16] MEDS: Piperacillin/Tazobactam 3.375 GM in 0.9 % Sodium Chloride Mini Bag 100 ML IVPB SCH ×2 (06:51→17:10)
--- NOTE | 2018-02-16 06:51 | Pulmonology Progress Note ---
Date of Encounter: 02/16/18 Time of Encounter: 06:51 Assessment and Plan (1) Pleural effusion Current Visit: Yes Status: Acute Bilateral pleural effusion secondary to hydrostatic pulmonary edema with pleural fluid analysis consistent with transudative process need to optimize volume removal with dialysis control of blood pressure and optimization of heart failure (2) Pneumonia Current Visit: Yes Status: Acute Patient with left-sided infiltrate which is concerning for hospital-acquired pneumonia she had been treated with Zosyn despite that she were consistently has a cough although no fever and does not have leukocytosis and encouraged her to try to get out of bed to chair as much as possible and to use incentive spirometer I believe that Zosyn remains appropriate at this time but if patient' s able to expectorate sputum with some that for micro-analysis and I have instructed the nurse at bedside to provide the patient with a sputum cup for this purpose Qualifiers: Pneumonia type: due to unspecified organism Laterality: left Lung location: upper lobe of lung Qualified Code(s): J18.1 - Lobar pneumonia, unspecified organism (3) Pneumothorax on right Current Visit: Yes Status: Acute There is a small pneumothorax in the right middle and lower part of the lung associated with pleural catheter placement I suspect this is actually related to pneumothorax ex vacuo as opposed to true pneumothorax related to procedure or for any other reason for that matter no air leak on chest tube today I would keep the chest tube to suction for the course the day and repeat the CT scan on the right tomorrow if there is no change can likely take the chest tube out at that time Subjective Principal diagnosis: NSTEMI, CKD, anemia Interval history: No acute events overnight. Right chest tube remained to suction. Fairly minimal output over the last 24 hours. Apparently was removed yesterday because of concern for a small pneumothorax after the left pleural fluid had been aspirated. Patient is complaining of cough today Objective PUL Vital signs: Last Vital Signs Temp 98.7 F 02/16/18 05:00 Pulse 77 02/16/18 05:00 Resp 16 02/16/18 05:00 BP 158/61 02/16/18 05:00 Pulse Ox 99 02/16/18 05:00 General appearance: no acute distress Auscultation: bilateral: rhonchi Cardiovascular: regular rate and rhythm Gastrointestinal: normoactive bowel sounds normal mental status, non-focal exam Results - Laboratory Findings CBC and BMP: 02/16/18 04:29 02/16/18 04:29 PT/INR, D-dimer PT 12.5 Seconds (9.4-12.1) H 02/14/18 07:46 Abnormal lab findings: Abnormal lab results RBC 2.85 M/mcL (3.82-4.97) L 02/16/18 04:29 Hgb 8.4 g/dL (11.5-15.4) L 02/16/18 04:29 Hct 27.4 % (35.3-44.9) L 02/16/18 04:29 MCHC 30.7 g/dL (31.6-35.5) L 02/16/18 04:29 Immature Plt Fraction 7.6 % (1.1-6.1) H 02/07/18 04:17 PT 12.5 Seconds (9.4-12.1) H 02/14/18 07:46 APTT 97.5 Seconds (26.0-36.0) H 02/01/18 11:18 Creatinine 3.83 mg/dL (0.60-1.20) H 02/16/18 04:29 Est GFR ( Amer) 14 (> 60) L 02/16/18 04:29 Est GFR (Non-Af Amer) 12 (> 60) L 02/16/18 04:29 BUN/Creatinine Ratio 5 (6-26) L 02/16/18 04:29 Glucose 233 mg/dL (70-105) H 02/16/18 04:29 POC Glucose 195 mg/dL (70-99) H 02/15/18 19:38 Uric Acid 8.2 mg/dL (2.3-7.6) H 01/31/18 12:27 Calcium 8.4 mg/dL (8.6-10.3) L 02/16/18 04:29 Transferrin 201 mg/dL (203-362) L 02/09/18 13:32 Alkaline Phosphatase 110 Units/L (34-104) H 02/10/18 03:52 Troponin I 0.75 ng/mL (< 0.04) H* 02/02/18 19:25 Serum Total Protein 6.0 g/dL (6.4-8.9) L 02/15/18 10:46 Albumin 2.7 g/dL (3.5-5.7) L 02/10/18 03:52 Albumin/Globulin Ratio 1.0 (1.1-2.2) L 02/10/18 03:52 Folate 20.0 ng/mL (3.0-16.0) H 02/09/18 13:32 Urine Clarity Cloudy (Clear) A 01/31/18 04:15 Urine Protein 100 mg/dL (Neg-Trace) H 01/31/18 04:15 Urine Ketones Trace mg/dL (Negative) H 01/31/18 04:15 Urine Blood Moderate (Negative) H 01/31/18 04:15 Ur Squamous Epith Cells Many per lpf (None-Few) H 01/31/18 04:15 Microalb/Creat Ratio 269 mcg/mg (Less than 30) H 02/03/18 07:25 Stool Occult Blood Positive (Negative) A 01/26/18 19:48 Complement C4 47 mg/dL (10-40) H 02/02/18 04:24 - Microbiology Findings Microbiology Findings: Microbiology, Last 48 Hours 02/15/18 15:07 Gram Stain - Final Pleural Fluid 02/14/18 14:00 Body Fluid Culture - Preliminary Pleural Fluid 02/14/18 14:00 Gram Stain - Final Pleural Fluid - Diagnostic Findings CT scan - chest: report reviewed, image reviewed - Clinical Findings Intake & Output: Intake & Output 02/15/18 02/15/18 02/16/18 15:59 23:59 07:59 Intake Total 700 / 700 240 / 240 100 / 100 Output Total 4910 / 4910 0 / 0 70 / 70 Balance -4210 / -4210 240 / 240 30 / 30 Weight 66.3 kg - VTE Reasons for not Prescribing Prophylaxis: Medical contraindication (Anemia, Suspected GI Bleed) Documentation of Mechanical Device: Intermittent pneumatic compression device Consult Discharge Plan - Plan Instructions: Heart Failure (DC), Chest Pain (DC), Diabetes Mellitus Type 2 in Adults (DC), Chronic Hypertension (DC), Pneumonia (DC), Joint Replacement Surgery, 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
--- NOTE | 2018-02-16 08:42 | Internal Med Progress Note ---
<Anastacio Oscar - Last Filed: 02/16/18 13:38> Date of Encounter: 02/16/18 Time of Encounter: 08:39 - Assessment and plan (1) Cough Current Visit: Yes Status: Acute Assessment and plan: Patient had CT which showed Bilateral Pleural effusions; loculation on pleural effusion on left. Right pleural effusion chest tube two days ago has drained bout 1.4 L. Labs for Right pleural effusion is suggestive of transudative fluid. Left Pleural effusion, as discussed with IR, will be aspirated and further worked up. Patient reports a mild worsening of symptoms. Will reassess this AM after L pleural effusion is aspirated, and reorder CXR if patient symptomatically does not improve. - Zosyn day 5 - Left pleural effusion consulted to IR today to be aspirated per pulm (2) Coronary artery disease Current Visit: Yes Status: Chronic Assessment and plan: Reconsulted Cardio. They will coordinate with nephrology for LHC. - appreciate Cardio's recommendation Qualifiers: Coronary Disease-Associated Artery/Lesion type: bypass graft [place] vs. transplanted heart: [place] heart Associated angina: without angina Qualified Code(s): I25.810 - Atherosclerosis of coronary artery bypass graft(s) without angina pectoris (3) Type 2 diabetes mellitus with diabetic nephropathy, with long-term current use of insulin Current Visit: Yes Status: Chronic Assessment and plan: SSI medium continue, will continue to closely monitor (4) Essential hypertension Current Visit: Yes Status: Chronic Assessment and plan: Controlled at this time. (5) DVT prophylaxis Current Visit: Yes Status: Acute Assessment and plan: On heparin sq (6) NSTEMI (non-ST elevated myocardial infarction) Current Visit: Yes Status: Resolved Assessment and plan: Pt admitted with chest pain and troponins elevated c/w acute NSTEMI. 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 remains relatively stable today Qualifiers: Anemia type: due to chronic kidney disease Chronic kidney disease stage: stage 4 (severe) Qualified Code(s): N18.4 - Chronic kidney disease, stage 4 ( severe); D63.1 - Anemia in chronic kidney disease; D63.1 - Anemia in chronic kidney disease (8) CKD (chronic kidney disease) stage 4, GFR 15-29 ml/min Current Visit: Yes Status: Chronic Assessment and plan: Chronic issue (9) Acute renal failure due to tubular necrosis Current Visit: Yes Status: Suspected Assessment and plan: Patient has had 7.8 L removed in 3 days from HD last week, HD from [facility] this week 9.4L. Patient is tolerating HD well. - appreciate nephrology and palliative care input - continue to monitor I/O - avoid nephrotoxins - renal diet (10) Goals of care, counseling/discussion Current Visit: Yes Status: Acute Assessment and plan: Palliative care was consulted. Status changed to DNR/DNI/CCA. Patient has agreed to do temp HD. - appreciate palliative care's input. (11) Pneumonia Current Visit: Yes Status: Acute Assessment and plan: see above Qualifiers: Pneumonia type: due to unspecified organism Laterality: left Lung location: upper lobe of lung Qualified Code(s): J18.1 - Lobar pneumonia, unspecified organism - Time Spent With Patient Total time spent is greater than 50% in coordination of care (as documented) at patient's floor/unit and/or counseling patient: - Subjective Interval history: Patient is seen and examined. Patient states that her cough has worsened this AM. She stated that it got better after the right chest tube was placed. Patient had HD yesterday, and she denies nausea, vomiting, cramping, CP, SOB. Patient understands that she is scheduled to have Left chest aspiration today by IR. - Constitutional Vitals: Temp Pulse Resp BP Pulse Ox 98.5 F 86 16 129/49 95 02/16/18 08:17 02/16/18 08:17 02/16/18 08:17 02/16/18 08:17 02/16/18 08:17 General appearance: Present: cooperative, mild distress, A&O X 3, pleasant, obese, answers questions appropriately - ENT ENT exam: Present: mucous membranes dry - Respiratory Respiratory exam: Present: wheezes (wheezes on Left lower lobe) - Cardiovascular Cardiovascular exam: Present: RRR - GI/Abdominal GI/Abdominal exam: Present: soft. Absent: distended, firm, guarding, rebound, rigid - Extremities Exam Extremities exam: Absent: pedal edema - Psychiatric Psychiatric exam: Present: depressed Internal Medicine: Result - Labs CBC & Chem 7: 02/16/18 04:29 02/16/18 04:29 Labs: Short CBC 02/16/18 Range/Units 04:29 WBC 5.4 (4.3-11.1) K/mcL Hgb 8.4 L (11.5-15.4) g/dL Hct 27.4 L (35.3-44.9) % Plt Count 164 (140-400) K/mcL BMP 02/16/18 04:29 Sodium 137 Potassium 4.3 Chloride 99 Carbon Dioxide 25 BUN 21 Creatinine 3.83 H Glucose 233 H Calcium 8.4 L - ABG Interpretation ABG results: PT/INR, D-dimer PT 12.5 Seconds (9.4-12.1) H 02/14/18 07:46 - Impressions Impressions Needle Aspiration CT 02/15/18 00:00 IMPRESSION: 1. CT guided left thoracentesis as discussed above. 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 transplanted heart: [place] heart Associated angina: without angina Qualified Code(s): I25.810 - Atherosclerosis of coronary artery bypass graft(s) without angina pectoris (2) Type 2 diabetes mellitus with diabetic nephropathy, with long-term current use of insulin Current Visit: Yes Status: Chronic (3) Essential hypertension Current Visit: Yes Status: Chronic (4) DVT prophylaxis Current Visit: Yes Status: Acute (5) NSTEMI (non-ST elevated myocardial infarction) Current Visit: Yes Status: Resolved (6) Anemia Current Visit: Yes Status: Suspected Qualifiers: Anemia type: due to chronic kidney disease Chronic kidney disease stage: stage 4 (severe) Qualified Code(s): N18.4 - Chronic kidney disease, stage 4 ( severe); D63.1 - Anemia in chronic kidney disease; D63.1 - Anemia in chronic kidney disease (7) CKD (chronic kidney disease) stage 4, GFR 15-29 ml/min Current Visit: Yes Status: Chronic (8) Acute renal failure due to tubular necrosis Current Visit: Yes Status: Suspected (9) Goals of care, counseling/discussion Current Visit: Yes Status: Acute (10) Cough Current Visit: Yes Status: Acute (11) Pneumonia Current Visit: Yes Status: Acute Qualifiers: Pneumonia type: due to unspecified organism Laterality: left Lung location: upper lobe of lung Qualified Code(s): J18.1 - Lobar pneumonia, unspecified organism - Time Spent With Patient Total time spent is greater than 50% in coordination of care (as documented) at patient's floor/unit and/or counseling patient: - Constitutional Vitals: Temp Pulse Resp BP Pulse Ox 99.8 F H 79 18 162/65 96 02/16/18 12:00 02/16/18 12:00 02/16/18 12:00 02/16/18 12:00 02/16/18 12:00 Internal Medicine: Result - Labs CBC & Chem 7: 02/16/18 04:29 02/16/18 04:29 Labs: Short CBC 02/16/18 Range/Units 04:29 WBC 5.4 (4.3-11.1) K/mcL Hgb 8.4 L (11.5-15.4) g/dL Hct 27.4 L (35.3-44.9) % Plt Count 164 (140-400) K/mcL BMP 02/16/18 04:29 Sodium 137 Potassium 4.3 Chloride 99 Carbon Dioxide 25 BUN 21 Creatinine 3.83 H Glucose 233 H Calcium 8.4 L - ABG Interpretation ABG results: PT/INR, D-dimer PT 12.5 Seconds (9.4-12.1) H 02/14/18 07:46 - Impressions Impressions Needle Aspiration CT 02/15/18 00:00 IMPRESSION: 1. CT guided left thoracentesis as discussed above. D/ / Shashank Ruiz MD / Shashank Ruiz MD Interpreting Provider: Shashank Ruiz MD Chest CT 02/16/18 09:00 IMPRESSION: Interval placement of a small bore chest tube in the right pleural space at the lung base, with improved right pleural fluid collection and only a minimal amount of pleural air related to hydropneumothorax. There is some improved aeration in the right lung base compared to the previous near complete collapse of the right lower lobe. Interval increase in multifocal nodular appearing infiltrate seen, greatest within the lower lobes suggestive of multifocal pneumonia. Lymphadenopathy in the mediastinum is likely reactive. 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 Given the multifocal ground-glass changes seen in the lungs, a component of interstitial pulmonary edema may be present. D/ / Christian Monahan MD / Christian Monahan MD Interpreting Provider: Christian Monahan MD - Attending Attestation I performed an independent interview and examin of this [facility], internal medicine resident. I agree with his findings, assessment and plan. Chest tube continues. She was noted to have a right pneumothorax, chest tube remains at suction. Repeat CT scan planned for tomorrow. She remains on Zosyn for suspected pneumonia, as directed by pulmonary medicine. Patient unfortunately is not showing any signs of renal recovery. Will likely need ongoing dialysis, possibly permanent. Cardiology is evaluating for left heart catheterization in near future. Patient is comfortable. Vital signs remained stable. We will continue to closely monitor. All else as outlined above. Future tailoring or de-escalation of antibiotics pending any culture results.
--- NOTE | 2018-02-16 09:00 | Palliative Progress Note ---
<Narciso Boyer - Last Filed: 02/16/18 08:54> Date of Encounter: 02/16/18 Time of Encounter: 08:45 - Assessment and plan (1) Nausea & vomiting Current Visit: Yes Status: Resolved Assessment and plan: Improved on current meds and dialysis. Still an occasional problem, last dose of Zofran was 02/14/18. Overall she is improved but still having occasional problems. Qualifiers: Vomiting type: unspecified Vomiting Intractability: intractable Qualified Code(s): R11.2 - Nausea with vomiting, unspecified (2) Ventilator associated pneumonia Current Visit: Yes Status: Resolved Assessment and plan: New area was noted on the 15th of the left side, at the time pulmonary has seen the patient and did not feel this was likely an infectious disease, however is in the differential. Patient has no fever, MAXIMUM TEMPERATURE 99.3 in the past 24 hrs, white count is normal. She is on antibiotics. Patient notes cough is worse today. Today she is going down for CT scan to follow up on pneumothorax. (3) NSTEMI (non-ST elevated myocardial infarction) Current Visit: Yes Status: Resolved Assessment and plan: No further chest pain, patient is awaiting stability for left heart cath after the kidneys are stabilized cardiology is following Radiology continue to follow date of catheter to be determined by cardiology. (4) CKD (chronic kidney disease) stage 4, GFR 15-29 ml/min Current Visit: Yes Status: Chronic Assessment and plan: Tolerating dialysis well. Still has some urine output yesterday, does feel better after having been dialyzed. Notes lower extremity continues to improves. Cr drastically improved today at 3.83 from 5.56 yesterday. The patient has expressed to me no desire whatsoever to stop dialysis. She would like to get well enough to not need it anymore. (5) Diarrhea Current Visit: Yes Status: Suspected Assessment and plan: Of note, patient concerned this morning with loose stools, notes 3 episodes. Previously notes BMs had been hard. Hgb remains stable. Would recommend following H/H daily and I/O (BMs). If Hgb declines could consider GI bleed, repeat occult stool testing. Workup and management per primary team. Qualifiers: Diarrhea type: unspecified type Qualified Code(s): R19.7 - Diarrhea, unspecified (6) Goals of care, counseling/discussion Current Visit: Yes Status: Acute Assessment and plan: Status well-established DNR CCA DNI. However the patient is still interested in testing treatment if it will benefit her. She is however sick and tired of being sick and tired and is made this very clear. Patient has unfortunately been through a great deal recently, this is all acute and potentially could be pulled through. At this time I do not feel the patient meets hospice criteria except if she were to stop the dialysis and the function did not return. Nephrology is following at a distance. Patient's nausea is improved on the current medications continue to follow, however as already noted from a distance. We will continue as noted above. As above, as already noted the patient has given me no reason to believe that she has changed her mind about desiring real progression that we have in her care. Was to continue getting her dialysis and feels it is beneficial to her. 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 We will continue to follow at a distance. - Time Spent With Patient Total time spent is greater than 50% in coordination of care (as documented) at patient's floor/unit and/or counseling patient: less than 15 minutes - Subjective Interval history: Patient seen and examined lying in bed for majority of exam. Patient initially on bedside commode with complaint of 3 loose BMs this morning, notes previously BMs have been hard. Patient notes hemodialysis is going well and currently she has no issues with continuing treatment. Ms. Andres does note that her cough has been worse since last night, she has a cup to catch sputum but states she has not been able to expel any sputum. She notes cough and breathing is more difficult with laying back. Transport arrived at end of examination to take patient for CT scan. - Constitutional Vitals: Abnormal lab results RBC 2.85 M/mcL (3.82-4.97) L 02/16/18 04:29 Hgb 8.4 g/dL (11.5-15.4) L 02/16/18 04:29 Hct 27.4 % (35.3-44.9) L 02/16/18 04:29 MCHC 30.7 g/dL (31.6-35.5) L 02/16/18 04:29 Immature Plt Fraction 7.6 % (1.1-6.1) H 02/07/18 04:17 PT 12.5 Seconds (9.4-12.1) H 02/14/18 07:46 APTT 97.5 Seconds (26.0-36.0) H 02/01/18 11:18 Creatinine 3.83 mg/dL (0.60-1.20) H 02/16/18 04:29 Est GFR ( Amer) 14 (> 60) L 02/16/18 04:29 Est GFR (Non-Af Amer) 12 (> 60) L 02/16/18 04:29 BUN/Creatinine Ratio 5 (6-26) L 02/16/18 04:29 Glucose 233 mg/dL (70-105) H 02/16/18 04:29 POC Glucose 195 mg/dL (70-99) H 02/15/18 19:38 Uric Acid 8.2 mg/dL (2.3-7.6) H 01/31/18 12:27 Calcium 8.4 mg/dL (8.6-10.3) L 02/16/18 04:29 Transferrin 201 mg/dL (203-362) L 02/09/18 13:32 Alkaline Phosphatase 110 Units/L (34-104) H 02/10/18 03:52 Troponin I 0.75 ng/mL (< 0.04) H* 02/02/18 19:25 Serum Total Protein 6.0 g/dL (6.4-8.9) L 02/15/18 10:46 Albumin 2.7 g/dL (3.5-5.7) L 02/10/18 03:52 Albumin/Globulin Ratio 1.0 (1.1-2.2) L 02/10/18 03:52 Folate 20.0 ng/mL (3.0-16.0) H 02/09/18 13:32 Urine Clarity Cloudy (Clear) A 01/31/18 04:15 Urine Protein 100 mg/dL (Neg-Trace) H 01/31/18 04:15 Urine Ketones Trace mg/dL (Negative) H 01/31/18 04:15 Urine Blood Moderate (Negative) H 01/31/18 04:15 Ur Squamous Epith Cells Many per lpf (None-Few) H 01/31/18 04:15 Microalb/Creat Ratio 269 mcg/mg (Less than 30) H 02/03/18 07:25 Stool Occult Blood Positive (Negative) A 01/26/18 19:48 Complement C4 47 mg/dL (10-40) H 02/02/18 04:24 General appearance: Present: no acute distress - Head Head exam: Present: atraumatic, normal inspection - Respiratory Respiratory exam: Present: decreased breath sounds. Absent: stridor, wheezes - Cardiovascular Cardiovascular exam: Present: RRR. Absent: diastolic murmur, systolic murmur - GI/Abdominal GI/Abdominal exam: Present: normal bowel sounds, soft. Absent: tenderness - Extremities Exam Extremities exam: Present: normal capillary refill. Absent: pedal edema - Neurological Exam Neurological exam: Present: alert, oriented X3 - Psychiatric Psychiatric exam: Present: normal affect, normal mood - Skin Skin exam: Present: dry, warm Palliative Quality Palliative Quality: Screen for Code Status: Yes, Screen for Goals of Care: Yes, Screen for Pain: Yes, If Pain Regimen Started, Initiate Bowel Regimen: Yes, Screen for Nausea/Vomitting: Yes Code Status: 01/26/18 05:29 Resuscitation Status: Active [RES] Routine Comment: Resuscitation Status: [id number] - Labs CBC & Chem 7: 02/16/18 04:29 02/16/18 04:29 Labs: Laboratory Results - last 24 hr 02/14/18 02/15/18 02/15/18 14:00 06:44 10:46 WBC RBC Hgb Hct MCV MCH MCHC RDW Plt Count MPV Sodium Potassium Chloride Carbon Dioxide BUN Creatinine Est GFR ( Amer) Est GFR (Non-Af Amer) BUN/Creatinine Ratio Glucose POC Glucose 174 H Calculated Osmolality Calcium Lactate Dehydrogenase Serum Total Protein 6.0 L Pleural Fluid Volume Pleural Appearance Pleural pH Pleural RBC Pleural Tot Nuc Cell Pleural Neutrophils Pleural Band Neuts Pleural Eosinophils Pleural Basophils Pleural Lymphocytes % Pleural Monocytes % Pleural Other Cells % Pleural Total Protein Pleural LDH Pleural Glucose 226 02/15/18 02/15/18 02/15/18 10:47 13:50 15:07 WBC RBC Hgb Hct MCV MCH MCHC RDW Plt Count MPV Sodium Potassium Chloride Carbon Dioxide BUN Creatinine Est GFR ( Amer) Est GFR (Non-Af Amer) BUN/Creatinine Ratio Glucose POC Glucose 172 H Calculated Osmolality Calcium Lactate Dehydrogenase 228 Serum Total Protein Pleural Fluid Volume 100.0 Pleural Appearance Clear Pleural pH 8.00 Pleural RBC < 0.002 Pleural Tot Nuc Cell 10 Pleural Neutrophils 9.6 Pleural Band Neuts Test Not Performed Pleural Eosinophils Test Not Performed Pleural Basophils Test Not Performed Pleural Lymphocytes % 84.6 Pleural Monocytes % 5.8 Pleural Other Cells % Test Not Performed Pleural Total Protein Pleural LDH Pleural Glucose 02/15/18 02/15/18 02/15/18 15:07 16:25 19:38 WBC RBC Hgb Hct MCV MCH MCHC RDW Plt Count MPV Sodium Potassium Chloride Carbon Dioxide BUN Creatinine Est GFR ( Amer) Est GFR (Non-Af Amer) BUN/Creatinine Ratio Glucose POC Glucose 232 H 195 H Calculated Osmolality Calcium Lactate Dehydrogenase Serum Total Protein Pleural Fluid Volume Pleural Appearance Pleural pH Pleural RBC Pleural Tot Nuc Cell Pleural Neutrophils Pleural Band Neuts Pleural Eosinophils Pleural Basophils Pleural Lymphocytes % Pleural Monocytes % Pleural Other Cells % Pleural Total Protein < 3.0 Pleural LDH 43 Pleural Glucose 197 02/16/18 02/16/18 04:29 04:29 WBC 5.4 RBC 2.85 L Hgb 8.4 L Hct 27.4 L MCV 96.1 MCH 29.5 MCHC 30.7 L RDW 14.3 Plt Count 164 MPV 11.6 Sodium 137 Potassium 4.3 Chloride 99 Carbon Dioxide 25 BUN 21 Creatinine 3.83 H Est GFR ( Amer) 14 L Est GFR (Non-Af Amer) 12 L BUN/Creatinine Ratio 5 L Glucose 233 H POC Glucose Calculated Osmolality 294 Calcium 8.4 L Lactate Dehydrogenase Serum Total Protein Pleural Fluid Volume Pleural Appearance Pleural pH Pleural RBC Pleural Tot Nuc Cell Pleural Neutrophils Pleural Band Neuts Pleural Eosinophils Pleural Basophils Pleural Lymphocytes % Pleural Monocytes % Pleural Other Cells % Pleural Total Protein Pleural LDH Pleural Glucose - Impressions Impressions Needle Aspiration CT 02/15/18 00:00 IMPRESSION: 1. CT guided left thoracentesis as discussed above. D/ / Shashank Ruiz MD / Shashank Ruiz MD Interpreting Provider: Shashank Ruiz MD - ABG Interpretation ABG results: PT/INR, D-dimer PT 12.5 Seconds (9.4-12.1) H 02/14/18 07:46 Consult Discharge Plan - Plan Instructions: Heart Failure (DC), Chest Pain (DC), Diabetes Mellitus Type 2 in Adults (DC), Chronic Hypertension (DC), Pneumonia (DC), Joint Replacement Surgery, Hotel Concierge (GEN) Referrals: Tawana Quintero, [facility] [Primary Care Provider] - <Hai Saucedo - Last Filed: 02/16/18 10:22> Date of Encounter: 02/16/18 - Assessment and plan (1) Nausea and vomiting Current Visit: Yes Status: Acute Qualifiers: Vomiting type: unspecified Vomiting Intractability: non-intractable Qualified Code(s): R11.2 - Nausea with vomiting, unspecified (2) Ventilator associated pneumonia Current Visit: Yes Status: Resolved (3) NSTEMI (non-ST elevated myocardial infarction) Current Visit: Yes Status: Resolved (4) CKD (chronic kidney disease) stage 4, GFR 15-29 ml/min Current Visit: Yes Status: Chronic (5) Goals of care, counseling/discussion Current Visit: Yes Status: Acute - Time Spent With Patient Total time spent is greater than 50% in coordination of care (as documented) at patient's floor/unit and/or counseling patient: - Constitutional Vitals: Abnormal lab results RBC 2.85 M/mcL (3.82-4.97) L 02/16/18 04:29 Hgb 8.4 g/dL (11.5-15.4) L 02/16/18 04:29 Hct 27.4 % (35.3-44.9) L 02/16/18 04:29 MCHC 30.7 g/dL (31.6-35.5) L 02/16/18 04:29 Immature Plt Fraction 7.6 % (1.1-6.1) H 02/07/18 04:17 PT 12.5 Seconds (9.4-12.1) H 02/14/18 07:46 APTT 97.5 Seconds (26.0-36.0) H 02/01/18 11:18 Creatinine 3.83 mg/dL (0.60-1.20) H 02/16/18 04:29 Est GFR ( Amer) 14 (> 60) L 02/16/18 04:29 Est GFR (Non-Af Amer) 12 (> 60) L 02/16/18 04:29 BUN/Creatinine Ratio 5 (6-26) L 02/16/18 04:29 Glucose 233 mg/dL (70-105) H 02/16/18 04:29 POC Glucose 195 mg/dL (70-99) H 02/15/18 19:38 Uric Acid 8.2 mg/dL (2.3-7.6) H 01/31/18 12:27 Calcium 8.4 mg/dL (8.6-10.3) L 02/16/18 04:29 Transferrin 201 mg/dL (203-362) L 02/09/18 13:32 Alkaline Phosphatase 110 Units/L (34-104) H 02/10/18 03:52 Troponin I 0.75 ng/mL (< 0.04) H* 02/02/18 19:25 Serum Total Protein 6.0 g/dL (6.4-8.9) L 02/15/18 10:46 Albumin 2.7 g/dL (3.5-5.7) L 02/10/18 03:52 Albumin/Globulin Ratio 1.0 (1.1-2.2) L 02/10/18 03:52 Folate 20.0 ng/mL (3.0-16.0) H 02/09/18 13:32 Urine Clarity Cloudy (Clear) A 01/31/18 04:15 Urine Protein 100 mg/dL (Neg-Trace) H 01/31/18 04:15 Urine Ketones Trace mg/dL (Negative) H 01/31/18 04:15 Urine Blood Moderate (Negative) H 01/31/18 04:15 Ur Squamous Epith Cells Many per lpf (None-Few) H 01/31/18 04:15 Microalb/Creat Ratio 269 mcg/mg (Less than 30) H 02/03/18 07:25 Stool Occult Blood Positive (Negative) A 01/26/18 19:48 Complement C4 47 mg/dL (10-40) H 02/02/18 04:24 - Attending Attestation I examined this patient and my medical decision-making was reviewed with the Resident Physician. I agree with the documented findings, disposition and treatment plan as described except to the extent set forth below. Palliative Quality Code Status: 01/26/18 05:29 Resuscitation Status: Active [RES] Routine Comment: Resuscitation Status: [id number] - Labs CBC & Chem 7: 02/16/18 04:29 02/16/18 04:29 Labs: Laboratory Results - last 24 hr 02/14/18 02/15/18 02/15/18 14:00 06:44 10:46 WBC RBC Hgb Hct MCV MCH MCHC RDW Plt Count MPV Sodium Potassium Chloride Carbon Dioxide BUN Creatinine Est GFR ( Amer) Est GFR (Non-Af Amer) BUN/Creatinine Ratio Glucose POC Glucose 174 H Calculated Osmolality Calcium Lactate Dehydrogenase Serum Total Protein 6.0 L Pleural Fluid Volume Pleural Appearance Pleural pH Pleural RBC Pleural Tot Nuc Cell Pleural Neutrophils Pleural Band Neuts Pleural Eosinophils Pleural Basophils Pleural Lymphocytes % Pleural Monocytes % Pleural Other Cells % Pleural Total Protein Pleural LDH Pleural Glucose 226 02/15/18 02/15/18 02/15/18 10:47 13:50 15:07 WBC RBC Hgb Hct MCV MCH MCHC RDW Plt Count MPV Sodium Potassium Chloride Carbon Dioxide BUN Creatinine Est GFR ( Amer) Est GFR (Non-Af Amer) BUN/Creatinine Ratio Glucose POC Glucose 172 H Calculated Osmolality Calcium Lactate Dehydrogenase 228 Serum Total Protein Pleural Fluid Volume 100.0 Pleural Appearance Clear Pleural pH 8.00 Pleural RBC < 0.002 Pleural Tot Nuc Cell 10 Pleural Neutrophils 9.6 Pleural Band Neuts Test Not Performed Pleural Eosinophils Test Not Performed Pleural Basophils Test Not Performed Pleural Lymphocytes % 84.6 Pleural Monocytes % 5.8 Pleural Other Cells % Test Not Performed Pleural Total Protein Pleural LDH Pleural Glucose 02/15/18 02/15/18 02/15/18 15:07 16:25 19:38 WBC RBC Hgb Hct MCV MCH MCHC RDW Plt Count MPV Sodium Potassium Chloride Carbon Dioxide BUN Creatinine Est GFR ( Amer) Est GFR (Non-Af Amer) BUN/Creatinine Ratio Glucose POC Glucose 232 H 195 H Calculated Osmolality Calcium Lactate Dehydrogenase Serum Total Protein Pleural Fluid Volume Pleural Appearance Pleural pH Pleural RBC Pleural Tot Nuc Cell Pleural Neutrophils Pleural Band Neuts Pleural Eosinophils Pleural Basophils Pleural Lymphocytes % Pleural Monocytes % Pleural Other Cells % Pleural Total Protein < 3.0 Pleural LDH 43 Pleural Glucose 197 02/16/18 02/16/18 04:29 04:29 WBC 5.4 RBC 2.85 L Hgb 8.4 L Hct 27.4 L MCV 96.1 MCH 29.5 MCHC 30.7 L RDW 14.3 Plt Count 164 MPV 11.6 Sodium 137 Potassium 4.3 Chloride 99 Carbon Dioxide 25 BUN 21 Creatinine 3.83 H Est GFR ( Amer) 14 L Est GFR (Non-Af Amer) 12 L BUN/Creatinine Ratio 5 L Glucose 233 H POC Glucose Calculated Osmolality 294 Calcium 8.4 L Lactate Dehydrogenase Serum Total Protein Pleural Fluid Volume Pleural Appearance Pleural pH Pleural RBC Pleural Tot Nuc Cell Pleural Neutrophils Pleural Band Neuts Pleural Eosinophils Pleural Basophils Pleural Lymphocytes % Pleural Monocytes % Pleural Other Cells % Pleural Total Protein Pleural LDH Pleural Glucose - Impressions Impressions Needle Aspiration CT 02/15/18 00:00 IMPRESSION: 1. CT guided left thoracentesis as discussed above. D/ / Shashank Ruiz MD / Shashank Ruiz MD Interpreting Provider: Shashank Ruiz MD Chest CT 02/16/18 09:00 IMPRESSION: Interval placement of a small bore chest tube in the right pleural space at the lung base, with improved right pleural fluid collection and only a minimal amount of pleural air related to hydropneumothorax. There is some improved aeration in the right lung base compared to the previous near complete collapse of the right lower lobe. Interval increase in multifocal nodular appearing infiltrate seen, greatest within the lower lobes suggestive of multifocal pneumonia. Lymphadenopathy in the mediastinum is likely reactive. 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 Given the multifocal ground-glass changes seen in the lungs, a component of interstitial pulmonary edema may be present. D/ / Christian Monahan MD / Christian Monahan MD Interpreting Provider: Christian Monahan MD - ABG Interpretation ABG results: PT/INR, D-dimer PT 12.5 Seconds (9.4-12.1) H 02/14/18 07:46
[2018-02-16] MEDS: Insulin LISPRO 300 UNITS/3 ML VIAL SQ SCH ×4 (09:29→21:26)
[2018-02-16] MEDS: Famotidine 20 MG TABLET PO SCH (09:34)
[2018-02-16] MEDS: Cholecalciferol (D-3) 1,000 UNIT TABLET PO SCH (09:34)
[2018-02-16] MEDS: Aspirin 81 MG TAB.CHEW PO SCH (09:34)
[2018-02-16] MEDS: Insulin NPH/REG 70/30 100 UNIT/ML (x5UNIT) SQ SCH ×2 (09:37→17:10)
[2018-02-16] MEDS: *HR* Acetylcysteine 20% 600 MG/3 ML ORAL SYRINGE PO SCH (09:37)
--- NOTE | 2018-02-16 10:53 | Cardiology Progress Note ---
Date of Encounter: 02/16/18 Time of Encounter: 09:30 Assessment and Plan (1) NSTEMI (non-ST elevated myocardial infarction) Current Visit: Yes Status: Resolved Per cardiology: -Concern for NSTEMI on admission. 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 Reported nausea, diaphoresis, SOB. -Denies current chest pain, or back pain. -Troponin, 0.03, 0.71, 5.22, 8.76, 8.03 -Initial EKG with depression in lateral leads. -TTE: LVEF 55%, mild- moderate MR, moderate- severe TR, severe pulmonary hypertension, RVSP 70-75mmHg. -Patient is sitting straight up in bed, conversational dyspnea noted. Patient is unable to tolerate laying flat. Multifocal pneumonia noted per CT chest today. -LHC recommended once able to lay flat. Patient is still agreeable for LHC when her breathing is improved. -Cardiology will sign off. Please re-consult when patient would be able to tolerate laying flat. Suspect early next week at earliest. -Discussed lengthy hospital stay and multiple co-morbidities with . (2) Anemia Current Visit: Yes Status: Suspected Per cardiology: -Anemia concerning for GI bleed during stay. Hgb stable. Recieved one unit PRBC 01/25/18. -01/29/2018 EGD: demonstrated small angiodysplasia in fundus. Biopsies and cauterization. -Per discussion with surgery previously, heparin may be continued and LHC performed. Qualifiers: Anemia type: due to chronic kidney disease Chronic kidney disease stage: stage 4 (severe) Qualified Code(s): N18.4 - Chronic kidney disease, stage 4 ( severe); D63.1 - Anemia in chronic kidney disease; D63.1 - Anemia in chronic kidney disease (3) CKD (chronic kidney disease) Current Visit: Yes Status: Acute Per cardiology: -History of CKD. Followed by [facility]. Dialysis started during stay. Qualifiers: Chronic kidney disease stage: unspecified stage Qualified Code(s): N18.9 - Chronic kidney disease, unspecified Discussion w patient/family: The assessment and plan as outlined above was discussed with the patient who expressed understanding and agreement. All questions were answered. Thank you for involving us in the care of your patient. Please call with any questions. Discussed and reviewed with Subjective Principal diagnosis: NSTEMI, CKD, anemia Interval history: Patient reports breathing is worse today. Patient is sitting straight up in bed with conversational dyspnea noted. Denies chest pain. Objective Vital Signs, Last 4 Hours Temp Pulse Resp BP Pulse Ox 02/16/18 08:17 98.5 F 86 16 129/49 95 General: Conversant, Other (Conversational dyspnea noted. .) HEENT: Atraumatic, Normocephaly, Mucus Membranes Moist Neck: No JVD, Normal carotid pulses Cardiac: Reg Rate and Rhythm, Normal S1 and S2, No Murmur Lungs: Other (Lung sounds with rhonchi noted. Right sided chest tube noted. ) Neuro: Alert and responsive, No focal deficits noted Abdomen: Soft, Non-Tender Skin: No rashes noted on visualized skin Musculoskeletal: No Chest Wall Tenderness Extremities: No Clubbing, No Cyanosis, Normal Pulses, Other (Mild bilateral pedal edema noted. ) Results 02/16/18 04:29 02/16/18 04:29 Lab Results Impressions Needle Aspiration CT 02/15/18 00:00 IMPRESSION: 1. CT guided left thoracentesis as discussed above. D/ / Shashank Ruiz MD / Shashank Ruiz MD Interpreting Provider: Shashank Ruiz MD Chest CT 02/16/18 09:00 IMPRESSION: Interval placement of a small bore chest tube in the right pleural space at the lung base, with improved right pleural fluid collection and only a minimal amount of pleural air related to hydropneumothorax. There is some improved aeration in the right lung base compared to the previous near complete collapse of the right lower lobe. Interval increase in multifocal nodular appearing infiltrate seen, greatest within the lower lobes suggestive of multifocal pneumonia. Lymphadenopathy in the mediastinum is likely reactive. 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 Given the multifocal ground-glass changes seen in the lungs, a component of interstitial pulmonary edema may be present. D/ / Christian Monahan MD / Christian Monahan MD Interpreting Provider: Christian Monahan MD Active Medications Acetaminophen (Tylenol) 650 mg PO Q6HR PRN PRN Reason: Mild Pain/Fever Stop: 07/28/18 05:30 Last Admin: 02/14/18 17:52 Dose: 650 mg Acetylcysteine (Acetylcysteine 20%) 600 mg PO BID [facility] Stop: 08/11/18 09:01 Last Admin: 02/16/18 09:37 Dose: 600 mg Aspirin (Aspirin) 81 mg PO DAILY [facility] Stop: 07/28/18 09:01 Last Admin: 02/16/18 09:34 Dose: 81 mg Benzonatate (Tessalon) 100 mg PO TID PRN PRN Reason: Cough Stop: 08/12/18 13:53 Last Admin: 02/14/18 08:50 Dose: 100 mg Bisacodyl (Dulcolax) 10 mg RC DAILY PRN PRN Reason: Constipation Stop: 08/06/18 13:43 Last Admin: 02/04/18 14:01 Dose: 10 mg Calcium Polycarbophil (Fibercon) 625 mg PO BID [facility] Stop: 08/09/18 09:01 Last Admin: 02/16/18 09:34 Dose: 625 mg Dextrose/Water (Dextrose 50% (Syg)) 25 ml IVP AD PRN PRN Reason: Hypoglycemia Stop: 07/28/18 05:37 Diphenhydramine HCl (Benadryl) 25 mg PO Q8HR PRN PRN Reason: Nausea Stop: 08/10/18 10:51 Last Admin: 02/14/18 01:43 Dose: 25 mg Famotidine (Pepcid) 10 mg PO DAILY [facility] Stop: 08/07/18 09:01 Last Admin: 02/16/18 09:34 Dose: 10 mg Glucagon (Glucagen) 1 mg IM ONCE PRN PRN Reason: Hypoglycemia Stop: 07/28/18 05:37 Glucose (Gluctose) 15 gm PO ONCE PRN PRN Reason: Hypoglycemia Stop: 07/28/18 05:37 Glucose (Gluctose) 30 gm PO ONCE PRN PRN Reason: Hypoglycemia Stop: 07/28/18 05:37 Guaifenesin (Robitussin/Dm) 10 ml PO Q6HR PRN PRN Reason: Cough Stop: 08/12/18 22:16 Last Admin: 02/16/18 09:37 Dose: 10 ml Guaifenesin (Mucinex) 600 mg PO BID [facility] Stop: 08/18/18 12:01 Heparin Sodium (Porcine) (Heparin) 5,000 unit SQ Q12HCO [facility] Stop: 08/03/18 18:01 Last Admin: 02/16/18 06:49 Dose: 5,000 unit Hydralazine HCl (Hydralazine) 10 mg IVP Q6HR PRN PRN Reason: Hypertension Stop: 08/13/18 04:41 Last Admin: 02/11/18 04:46 Dose: 10 mg Dextrose (Dextrose 5%) 1,000 mls @ 100 mls/hr IVC .Q10H PRN PRN Reason: HYPOGLYCEMIA Stop: 07/28/18 05:37 Piperacillin Sod/Tazobactam (Sod 3.375 gm/ Sodium Chloride) 100 mls @ 25 mls/ hr IVPB Q12HR [facility] Stop: 08/14/18 18:01 Last Admin: 02/16/18 06:51 Dose: 25 mls/hr Insulin Human Lispro (Humalog) 0 units SQ HS [facility] PRN Reason: Protocol Stop: 08/03/18 21:01 Last Admin: 02/15/18 21:47 Dose: Not Given Insulin Human Lispro (Humalog) 0 units SQ TIDAC [facility] PRN Reason: Protocol Stop: 08/03/18 16:31 Last Admin: 02/16/18 09:29 Dose: Not Given Insulin Isophane/Insulin Regular (Humulin 70/30 Vial) 22 unit SQ QAM [facility] Stop: 08/04/18 09:01 Last Admin: 02/16/18 09:37 Dose: Not Given Insulin Isophane/Insulin Regular (Humulin 70/30 Vial) 12 unit SQ 1630 [facility] Stop: 08/03/18 16:31 Last Admin: 02/15/18 17:03 Dose: 12 unit Lorazepam (Ativan) 0.5 mg PO TID PRN PRN Reason: Anxiety Stop: 08/10/18 16:11 Last Admin: 02/15/18 11:10 Dose: 0.5 mg Metoclopramide HCl (Reglan) 10 mg PO QIDAC [facility] Stop: 08/11/18 16:31 Last Admin: 02/16/18 09:34 Dose: 10 mg Metoprolol Tartrate (Lopressor) 2.5 mg IVP Q6HR PRN PRN Reason: Heart Rate- High Stop: 07/28/18 05:35 Last Admin: 01/26/18 05:52 Dose: 2.5 mg Metoprolol Tartrate (Lopressor) 25 mg PO BID [facility] Stop: 08/05/18 18:46 Last Admin: 02/16/18 09:34 Dose: 25 mg Naloxone HCl (Narcan) 0.4 mg IVP Q2MIN PRN PRN Reason: SEE COMMENTS Stop: 07/28/18 05:30 Nitroglycerin (Nitroglycerin) 0.4 mg SL Q5MIN PRN PRN Reason: Chest Pain Stop: 07/27/18 23:54 Last Admin: 01/26/18 00:43 Dose: 0.4 mg Omeprazole (Prilosec) 20 mg PO BIDAC [facility] PRN Reason: Protocol Stop: 08/02/18 16:31 Last Admin: 02/16/18 09:34 Dose: 20 mg Ondansetron HCl (Zofran) 4 mg IVP Q4HR PRN PRN Reason: Nausea And Vomiting Stop: 07/28/18 08:01 Last Admin: 02/14/18 15:33 Dose: 4 mg Rosuvastatin Calcium (Crestor) 10 mg PO HS [facility] Stop: 07/28/18 21:01 Last Admin: 02/15/18 21:45 Dose: 10 mg Throat Lozenges (Cepacol Sore Throat Lozenge) 1 each MM Q2H PRN PRN Reason: Sore Throat Stop: 08/01/18 10:58 Last Admin: 01/31/18 21:45 Dose: 1 each Vitamin D (Vitamin D) 1,000 unit PO DAILY [facility] Stop: 07/30/18 17:46 Last Admin: 02/16/18 09:34 Dose: 1,000 unit Laboratory Tests 02/15/18 02/15/18 02/16/18 04:45 04:45 04:29 Hgb 9.0 L 8.4 L Creatinine 5.56 H 02/16/18 04:29 Hgb Creatinine 3.83 H - Imaging and Cardiology Chest Xray: report reviewed Echo: report reviewed - EKG Interpretation EKG results cardiology: other (Telemetry reviewed with average HR previous 12 hours noted to be 78, SR. 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
--- NOTE | 2018-02-16 11:32 | Nephrology Progress Note ---
<Roslyn Grimaldo Scott - Last Filed: 02/16/18 11:34> Date of Encounter: 02/16/18 Time of Encounter: 11:30 - Assessment and Plan (1) Acute kidney injury superimposed on CKD Status: Acute Plan for HD tomorrow Permacath to be placed when stable UOP 200ml Kidney function still shows no signs of recovery Will be going to [facility] when discharged. Avoid nephrotoxins. (2) NSTEMI (non-ST elevated myocardial infarction) Status: Resolved Per cadiology team. (3) Anemia Status: Suspected Hgb 8.4 Goal hgb is 10-11. Transfuse per parameters. Qualifiers: Anemia type: due to chronic kidney disease Chronic kidney disease stage: stage 4 (severe) Qualified Code(s): N18.4 - Chronic kidney disease, stage 4 ( severe); D63.1 - Anemia in chronic kidney disease; D63.1 - Anemia in chronic kidney disease Subjective Principal diagnosis: NSTEMI, CKD, anemia Interval history: Patient seen and examined. States she is feeling better except for cough. Objective - Vital Signs Vital signs: Vital Signs Temp Pulse Resp BP Pulse Ox 02/16/18 08:17 98.5 F 86 16 129/49 95 02/16/18 05:00 98.7 F 77 16 158/61 99 02/15/18 21:00 99.6 F 83 16 144/55 97 02/15/18 13:46 98.6 F 96 18 148/58 97 02/15/18 13:13 99.1 F 18 138/64 02/15/18 12:55 124/59 02/15/18 12:40 136/63 02/15/18 12:25 135/64 02/15/18 12:10 140/61 02/15/18 11:55 139/56 02/15/18 11:40 138/60 Intake and Output 02/15/18 02/16/18 02/16/18 23:59 07:59 15:59 Intake Total 340 / 340 100 / 100 0 / 0 Output Total 0 / 0 70 / 70 Balance 340 / 340 30 / 30 0 / 0 Intake: IV Fluids 100 / 100 Zosyn 3.375 GM In 0.9 % Sodium 100 / 100 Chloride (Mini-Bag +) 100 ML @ 25 mls/hr IVPB Q12HR [facility] Rx#: [id number] Oral 240 / 240 100 / 100 0 / 0 Output: Urine 0 / 0 0 / 0 Chest Tube Drainage 0 / 0 70 / 70 Right Lateral Chest 0 / 0 70 / 70 Other: Meal Breakfast Percent of Meal Consumed 0% Stool Size Moderate Moderate Small Stool Consistency soft soft loose Stool Color Brown Brown # Voids 0 # Bowel Movement Diapers 1 1 1 Weight 66.3 kg Blood Glucose* 195 271 Patient Weight 02/16/18 23:59 Weight 66.3 kg - General Appearance General appearance: Present: well-developed, well-nourished EENT: Present: ATNC, mucous membranes moist, hearing intact, vision intact Neck: Present: supple Respiratory: Present: rhonchi (right upper lobe) Cardiology: Present: no edema, normal S1, normal S2 Dialysis Vascular Access: Venous Catheter Gastrointestinal: Present: no tenderness, no guarding Integumentary: Present: warm and dry Neurologic: Present: alert and oriented x3 Psychiatric: Present: mood/affect appropriate (flat affect, quiet), cooperative - Lab 02/16/18 04:29 02/16/18 04:29 Most recent lab results Calcium 8.4 mg/dL (8.6-10.3) L 02/16/18 04:29 Magnesium 1.9 mg/dL (1.6-2.6) 02/06/18 04:56 Urine Creatinine 52 mg/dL 02/03/18 07:25 - VTE Reasons for not Prescribing Prophylaxis: Medical contraindication (Anemia, Suspected GI Bleed) Documentation of Mechanical Device: Intermittent pneumatic compression device Consult Discharge Plan - Plan Instructions: Heart Failure (DC), Chest Pain (DC), Diabetes Mellitus Type 2 in Adults (DC), Chronic Hypertension (DC), Pneumonia (DC), Joint Replacement Surgery, 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) Referrals: Tawana Quintero CNP [Primary Care Provider] - Pedro Cardoza CNP [Advanced Practice Nurse] - Alfred Gill MD [Partnered Physician] - Prescriptions: Ondansetron ODT [Zofran ODT] 4 mg PO Q6HR 30 Days #6 tab.rapdis <Alfred Gill - Last Filed: 03/06/18 00:00> Date of Encounter: 02/16/18 - Assessment and Plan (1) Acute kidney injury superimposed on CKD Status: Acute (2) CKD (chronic kidney disease) stage 4, GFR 15-29 ml/min Status: Chronic (3) Pneumonia Status: Acute Qualifiers: Pneumonia type: due to unspecified organism Laterality: left Lung location: unspecified part of lung Qualified Code(s): J18.9 - Pneumonia, unspecified organism Objective - Lab 02/21/18 05:23 02/21/18 05:23 Most recent lab results Calcium 8.4 mg/dL (8.6-10.3) L 02/21/18 05:23 Phosphorus 3.4 mg/dL (2.7-4.5) 02/18/18 03:00 Magnesium 1.9 mg/dL (1.6-2.6) 02/06/18 04:56 Urine Creatinine 52 mg/dL 02/03/18 07:25 - Attending Attestation I examined this patient and my medical decision-making was reviewed with the Resident Physician/HEAD CHEF. I agree with the documented findings, disposition and treatment plan as described except to the extent set forth below. Pt seen and examined feeling mostly good except for cough. UOP and SCr not impressive for renal recovery yet. HD planned for tomorrow. Will plan for permcath soon and placement at outpatient HD facility. Continue to avoid nephrotoxins.
[2018-02-16] MEDS: Benzonatate 100 MG CAPSULE PO PRN (14:23)
[2018-02-16] MEDS: Benzonatate 100 MG CAPSULE PO SCH (21:23)
[2018-02-16] MEDS: Acetaminophen 325 MG TABLET PO PRN (21:50)
[2018-02-17 06:13] LABS: Hematocrit 27.6 % (35.3-44.9); Hemoglobin 8.4 g/dL (11.5-15.4); Mean Corpuscular HGB Conc 30.4 g/dL (31.6-35.5); Mean Corpuscular Hemoglobin 29.2 pg (28.0-33.3); Mean Corpuscular Volume 95.8 fL (83.0-100.0); Mean Platelet Volume 11.9 fL (9.4-12.4); Platelet Count 155 K/mcL (140-400); Red Blood Count 2.88 M/mcL (3.82-4.97); Red Cell Distribution Width 14.2 % (11.5-14.5)
[2018-02-17 06:30] LABS: Calcium 8.7 mg/dL (8.6-10.3); Potassium 3.9 mEq/L (3.5-5.1)
[2018-02-17] MEDS: *HR* Heparin 5,000 UNIT/ML VIAL SQ SCH ×2 (06:34→17:39)
[2018-02-17] MEDS: Piperacillin/Tazobactam 3.375 GM in 0.9 % Sodium Chloride Mini Bag 100 ML IVPB SCH ×2 (06:35→17:38)
--- NOTE | 2018-02-17 07:06 | Palliative Progress Note ---
Date of Encounter: 02/17/18 Time of Encounter: 07:00 - Assessment and plan (1) Nausea and vomiting Current Visit: Yes Status: Acute Assessment and plan: Much improved on current meds and dialysis. No anti-medic medication in the last 3 days. The patient is having fairly frequent loose stools I think it is time to go ahead and stop the Reglan. Jayant with the patient and she enthusiastically agreed. This point I believe that the loose stools are greater concern to her than the nausea. Qualifiers: Vomiting type: unspecified Vomiting Intractability: non-intractable Qualified Code(s): R11.2 - Nausea with vomiting, unspecified (2) Ventilator associated pneumonia Current Visit: Yes Status: Resolved Assessment and plan: Pulmonary is following patient is on antibiotics (3) NSTEMI (non-ST elevated myocardial infarction) Current Visit: Yes Status: Resolved Assessment and plan: No further chest pain, waiting heart catheter. (4) CKD (chronic kidney disease) stage 4, GFR 15-29 ml/min Current Visit: Yes Status: Chronic Assessment and plan: Possible dialysis today, patient's not sure if this can happen or not. (5) Goals of care, counseling/discussion Current Visit: Yes Status: Acute Assessment and plan: Status well-established DNR CCA DNI. However the patient is still interested in testing treatment if it will benefit her. He is however sick and tired of being sick and tired and is made this very clear. Patient has unfortunately been through a great deal recently, this is all acute and potentially could be pulled through. At this time I do not feel the patient meets hospice criteria except if she were to stop the dialysis and the function did not return. Negative is following at a distance. Patient's nausea is improved on the current medications continue to follow, however as already noted from a distance. We will continue as noted above. As above, as already noted the patient has given me no reason to believe that she has changed her mind about desiring real progression that we have in her care. Was to continue getting her dialysis and feels it is beneficial to her. I have discussed this at length with her inflatable buildings laminator as well. We will continue to follow at a distance. As above, will go ahead and DC the Reglan. Continue Zofran as needed for nausea and no palliative coverage this weekend. Since goals are well- established status is established we will continue to follow at a distance. - Time Spent With Patient Total time spent is greater than 50% in coordination of care (as documented) at patient's floor/unit and/or counseling patient: - Subjective Interval history: The patient states she still with acough she states she thinks dialysis today. she does not know how soon ct will come out He does complain of loose stools. She states they are not watery there is at least some form to them they are becoming somewhat troublesome to her. - Constitutional Vitals: Abnormal lab results RBC 2.88 M/mcL (3.82-4.97) L 02/17/18 05:09 Hgb 8.4 g/dL (11.5-15.4) L 02/17/18 05:09 Hct 27.6 % (35.3-44.9) L 02/17/18 05:09 MCHC 30.4 g/dL (31.6-35.5) L 02/17/18 05:09 Immature Plt Fraction 7.6 % (1.1-6.1) H 02/07/18 04:17 PT 12.5 Seconds (9.4-12.1) H 02/14/18 07:46 APTT 97.5 Seconds (26.0-36.0) H 02/01/18 11:18 BUN 33 mg/dL (8-23) H 02/17/18 05:09 Creatinine 6.13 mg/dL (0.60-1.20) H 02/17/18 05:09 Est GFR ( Amer) 8 (> 60) L 02/17/18 05:09 Est GFR (Non-Af Amer) 7 (> 60) L 02/17/18 05:09 BUN/Creatinine Ratio 5 (6-26) L 02/17/18 05:09 Glucose 154 mg/dL (70-105) H 02/17/18 05:09 POC Glucose 267 mg/dL (70-99) H 02/16/18 16:33 Uric Acid 8.2 mg/dL (2.3-7.6) H 01/31/18 12:27 Transferrin 201 mg/dL (203-362) L 02/09/18 13:32 Alkaline Phosphatase 110 Units/L (34-104) H 02/10/18 03:52 Troponin I 0.75 ng/mL (< 0.04) H* 02/02/18 19:25 Serum Total Protein 6.0 g/dL (6.4-8.9) L 02/15/18 10:46 Albumin 2.7 g/dL (3.5-5.7) L 02/10/18 03:52 Albumin/Globulin Ratio 1.0 (1.1-2.2) L 02/10/18 03:52 Folate 20.0 ng/mL (3.0-16.0) H 02/09/18 13:32 Urine Clarity Cloudy (Clear) A 01/31/18 04:15 Urine Protein 100 mg/dL (Neg-Trace) H 01/31/18 04:15 Urine Ketones Trace mg/dL (Negative) H 01/31/18 04:15 Urine Blood Moderate (Negative) H 01/31/18 04:15 Ur Squamous Epith Cells Many per lpf (None-Few) H 01/31/18 04:15 Microalb/Creat Ratio 269 mcg/mg (Less than 30) H 02/03/18 07:25 Stool Occult Blood Positive (Negative) A 01/26/18 19:48 Complement C4 47 mg/dL (10-40) H 02/02/18 04:24 General appearance: Present: no acute distress - Head Head exam: Present: atraumatic, normal inspection - ENT ENT exam: Present: normal exam - Respiratory Respiratory exam: Present: decreased breath sounds - Cardiovascular Cardiovascular exam: Present: RRR - GI/Abdominal GI/Abdominal exam: Present: normal bowel sounds, soft. Absent: tenderness - Extremities Exam Extremities exam: Present: normal inspection. Absent: pedal edema, tenderness - Neurological Exam Neurological exam: Present: alert, oriented X3 - Psychiatric Psychiatric exam: Absent: agitated, anxious - Skin Skin exam: Present: dry, warm Palliative Quality Palliative Quality: Screen for Code Status: Yes, Screen for Goals of Care: Yes, Screen for Pain: Yes, If Pain Regimen Started, Initiate Bowel Regimen: Yes, Screen for Nausea/Vomitting: Yes Code Status: 01/26/18 05:29 Resuscitation Status: Active [RES] Routine Comment: Resuscitation Status: [id number] - Labs CBC & Chem 7: 02/17/18 05:09 02/17/18 05:09 Labs: Laboratory Results - last 24 hr 02/15/18 02/16/18 02/16/18 10:02 08:13 11:59 WBC RBC Hgb Hct MCV MCH MCHC RDW Plt Count MPV Sodium Potassium Chloride Carbon Dioxide BUN Creatinine Est GFR ( Amer) Est GFR (Non-Af Amer) BUN/Creatinine Ratio Glucose POC Glucose 202 H 271 H 388 H Calculated Osmolality Calcium 02/16/18 02/17/18 02/17/18 16:33 05:09 05:09 WBC 5.9 RBC 2.88 L Hgb 8.4 L Hct 27.6 L MCV 95.8 MCH 29.2 MCHC 30.4 L RDW 14.2 Plt Count 155 MPV 11.9 Sodium 137 Potassium 3.9 Chloride 100 Carbon Dioxide 24 BUN 33 H Creatinine 6.13 H Est GFR ( Amer) 8 L Est GFR (Non-Af Amer) 7 L BUN/Creatinine Ratio 5 L Glucose 154 H POC Glucose 267 H Calculated Osmolality 294 Calcium 8.7 - Impressions Impressions Chest CT 02/16/18 09:00 IMPRESSION: Interval placement of a small bore chest tube in the right pleural space at the lung base, with improved right pleural fluid collection and only a minimal amount of pleural air related to hydropneumothorax. There is some improved aeration in the right lung base compared to the previous near complete collapse of the right lower lobe. Interval increase in multifocal nodular appearing infiltrate seen, greatest within the lower lobes suggestive of multifocal pneumonia. Lymphadenopathy in the mediastinum is likely reactive. 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 Given the multifocal ground-glass changes seen in the lungs, a component of interstitial pulmonary edema may be present. 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
[2018-02-17] MEDS ORDERED: 0.9 % Sodium Chloride 250 ML IVC PRN (07:11)
[2018-02-17] MEDS ORDERED: *HR* Heparin 10,000 UNIT/10 ML VIAL IV PRN (07:11)
[2018-02-17] MEDS ORDERED: 0.9 % Sodium Chloride 1,000 ML PRIME SCH (07:15)
[2018-02-17] MEDS ORDERED: 0.9 % Sodium Chloride 1,000 ML ONE (07:32)
--- NOTE | 2018-02-17 08:14 | Pulmonology Progress Note ---
Date of Encounter: 02/17/18 Time of Encounter: 08:11 Assessment and Plan (1) Pleural effusion Current Visit: Yes Status: Acute The patient has bilateral pleural effusions which are transudative in nature and related hydrostatic pulmonary edema secondary to cardiorenal disease I reviewed the images from the CT scan of the chest which were notable for significantly decreased size in the right-sided pleural effusion there is a small pneumothorax that was present which is likely related to removal of volume with incomplete reexpansion of the lung (ex vacuo) as opposed to true pneumothorax related to trauma etc. At the bedside today I removed the small bore chest tube while applying an adhesive patch over a petroleum dressing The patient tolerated the procedure fine and there was some serosanguineous drainage after the removal which subsided after I applied pressure for a few moments. Recommend dressing check every 20 minutes for the first hour and then every hour 2 I explained this to the bedside nurse Repeat chest x-ray one hour after removal (2) Pneumonia Current Visit: Yes Status: Acute Patient with left-sided infiltrate which is concerning for hospital-acquired pneumonia she had been treated with Zosyn despite that she were consistently has a cough although no fever and does not have leukocytosis and encouraged her to try to get out of bed to chair as much as possible and to use incentive spirometer I believe that Zosyn remains appropriate at this time but if patient' s able to expectorate sputum with some that for micro-analysis and I have instructed the nurse at bedside to provide the patient with a sputum cup for this purpose Qualifiers: Pneumonia type: due to unspecified organism Laterality: left Lung location: unspecified part of lung Qualified Code(s): J18.9 - Pneumonia, unspecified organism (3) Pneumothorax on right Current Visit: Yes Status: Acute There is a small pneumothorax in the right middle and lower part of the lung associated with pleural catheter placement I suspect this is actually related to pneumothorax ex vacuo as opposed to true pneumothorax related to procedure. Subjective Principal diagnosis: NSTEMI, CKD, anemia Interval history: No acute events overnight. Right chest tube remained to suction. Today she reports that she is having a bit improvement overall in her breathing however she has had increased frequency of bowel movement movements which have been disconcerting to her Objective PUL Vital signs: Last Vital Signs Temp 98.7 F 02/17/18 06:51 Pulse 96 02/17/18 06:51 Resp 16 02/17/18 06:51 BP 146/52 02/17/18 06:51 Pulse Ox 96 02/17/18 06:51 General appearance: no acute distress Auscultation: bilateral: diminished breath sounds Cardiovascular: regular rate and rhythm Extremities: anasarca normal mental status, non-focal exam Results - Laboratory Findings CBC and BMP: 02/17/18 05:09 02/17/18 05:09 PT/INR, D-dimer PT 12.5 Seconds (9.4-12.1) H 02/14/18 07:46 Abnormal lab findings: Abnormal lab results RBC 2.88 M/mcL (3.82-4.97) L 02/17/18 05:09 Hgb 8.4 g/dL (11.5-15.4) L 02/17/18 05:09 Hct 27.6 % (35.3-44.9) L 02/17/18 05:09 MCHC 30.4 g/dL (31.6-35.5) L 02/17/18 05:09 Immature Plt Fraction 7.6 % (1.1-6.1) H 02/07/18 04:17 PT 12.5 Seconds (9.4-12.1) H 02/14/18 07:46 APTT 97.5 Seconds (26.0-36.0) H 02/01/18 11:18 BUN 33 mg/dL (8-23) H 02/17/18 05:09 Creatinine 6.13 mg/dL (0.60-1.20) H 02/17/18 05:09 Est GFR ( Amer) 8 (> 60) L 02/17/18 05:09 Est GFR (Non-Af Amer) 7 (> 60) L 02/17/18 05:09 BUN/Creatinine Ratio 5 (6-26) L 02/17/18 05:09 Glucose 154 mg/dL (70-105) H 02/17/18 05:09 POC Glucose 267 mg/dL (70-99) H 02/16/18 16:33 Uric Acid 8.2 mg/dL (2.3-7.6) H 01/31/18 12:27 Transferrin 201 mg/dL (203-362) L 02/09/18 13:32 Alkaline Phosphatase 110 Units/L (34-104) H 02/10/18 03:52 Troponin I 0.75 ng/mL (< 0.04) H* 02/02/18 19:25 Serum Total Protein 6.0 g/dL (6.4-8.9) L 02/15/18 10:46 Albumin 2.7 g/dL (3.5-5.7) L 02/10/18 03:52 Albumin/Globulin Ratio 1.0 (1.1-2.2) L 02/10/18 03:52 Folate 20.0 ng/mL (3.0-16.0) H 02/09/18 13:32 Urine Clarity Cloudy (Clear) A 01/31/18 04:15 Urine Protein 100 mg/dL (Neg-Trace) H 01/31/18 04:15 Urine Ketones Trace mg/dL (Negative) H 01/31/18 04:15 Urine Blood Moderate (Negative) H 01/31/18 04:15 Ur Squamous Epith Cells Many per lpf (None-Few) H 01/31/18 04:15 Microalb/Creat Ratio 269 mcg/mg (Less than 30) H 02/03/18 07:25 Stool Occult Blood Positive (Negative) A 01/26/18 19:48 Complement C4 47 mg/dL (10-40) H 02/02/18 04:24 - Microbiology Findings Microbiology Findings: Microbiology, Last 48 Hours 02/14/18 14:00 Body Fluid Culture - Preliminary Pleural Fluid 02/15/18 15:07 Body Fluid Culture - Preliminary Pleural Fluid 02/15/18 15:07 Gram Stain - Final Pleural Fluid - Diagnostic Findings CT scan - chest: report reviewed, image reviewed - Clinical Findings Intake & Output: Intake & Output 02/16/18 02/17/18 02/17/18 23:59 07:59 15:59 Intake Total 280 / 280 60 / 60 Output Total 0 / 0 80 / 80 Balance 280 / 280 -20 / -20 Weight 65.3 kg - VTE Reasons for not Prescribing Prophylaxis: Medical contraindication (Anemia, Suspected GI Bleed) Documentation of Mechanical Device: Intermittent pneumatic compression device Consult Discharge Plan - Plan Instructions: Heart Failure (DC), Chest Pain (DC), Diabetes Mellitus Type 2 in Adults (DC), Chronic Hypertension (DC), Pneumonia (DC), Joint Replacement Surgery, Operations Forester (GEN) Referrals: Tawana Quintero, ELIGIBILITY SERVICES REPRESENTATIVE [Primary Care Provider] -
[2018-02-17] MEDS: Benzonatate 100 MG CAPSULE PO SCH ×3 (09:48→21:27)
[2018-02-17] MEDS: Cholecalciferol (D-3) 1,000 UNIT TABLET PO SCH (09:48)
[2018-02-17] MEDS: Famotidine 20 MG TABLET PO SCH (09:48)
[2018-02-17] MEDS: *HR* LORazepam 0.5 MG TABLET PO PRN ×2 (09:48→21:36)
[2018-02-17] MEDS: Insulin LISPRO 300 UNITS/3 ML VIAL SQ SCH ×4 (09:49→21:17)
[2018-02-17] MEDS: Aspirin 81 MG TAB.CHEW PO SCH (09:49)
[2018-02-17] MEDS: Insulin NPH/REG 70/30 100 UNIT/ML (x5UNIT) SQ SCH ×2 (09:49→17:39)
--- NOTE | 2018-02-17 11:11 | Nephrology Progress Note ---
Date of Encounter: 02/17/18 Time of Encounter: 10:25 - Assessment and Plan (1) Acute kidney injury superimposed on CKD Current Visit: Yes Status: Acute Agree with HD today, with the next HD tentatively planned for Tuesday. I have her on the last shift today so as to allow time for a CXR, as discussed with Pulmonology. Since she has essentially become dialysis dependent (Dialysis dependent ASHLEY on CKD), I recommend she undergo Permacath placement. So NPO on Tuesday night with Permacath on Tuesday -- avoid ASA and goal INR <1.5. (2) CKD (chronic kidney disease) stage 4, GFR 15-29 ml/min Current Visit: Yes Status: Chronic Chronic baseline per report. ASHLEY work up was previously undertaken by my colleagues. (3) Metabolic acidosis Current Visit: Yes Status: Acute Improved with dialysis (4) Pneumothorax on right Current Visit: Yes Status: Acute As per pulmonology and s/p chest tube, which was just recently removed. Subjective Principal diagnosis: NSTEMI, CKD, anemia Interval history: Pt was s/e earlier in the day. She recently had a CT removed and reported having inc'd cough. I spoke with Pulmonology, who had ordered a follow-up CXR. She denied feeling F/C or N/V. Objective - Vital Signs Vital signs: Vital Signs Temp Pulse Resp BP Pulse Ox 02/17/18 06:51 98.7 F 96 16 146/52 96 02/17/18 05:00 98.2 F 77 18 178/64 96 02/16/18 23:57 98.2 F 68 16 140/62 97 02/16/18 20:00 98.3 F 83 20 158/75 97 02/16/18 15:40 98.5 F 77 18 159/59 96 02/16/18 12:00 99.8 F H 79 18 162/65 96 Intake and Output 02/16/18 02/17/18 02/17/18 23:59 07:59 15:59 Intake Total 280 / 280 60 / 60 120 / 120 Output Total 0 / 0 80 / 80 100 / 100 Balance 280 / 280 -20 / -20 20 / 20 Intake: IV Fluids 100 / 100 Zosyn 3.375 GM In 0.9 % Sodium 100 / 100 Chloride (Mini-Bag +) 100 ML @ 25 mls/hr IVPB Q12HR L[facility] Rx#: [id number] Oral 180 / 180 60 / 60 120 / 120 Output: Urine 0 / 0 0 / 0 Stool 100 / 100 Chest Tube Drainage 80 / 80 Right Lateral Chest 80 / 80 Other: Meal Dinner Breakfast Percent of Meal Consumed 20% 20% Stool Size Small Small Stool Consistency loose loose liquid Stool Color Brown Brown Brown # Bowel Movement Diapers 1 1 Weight 65.3 kg Blood Glucose* 327 159 Patient Weight 02/17/18 23:59 Weight 65.3 kg - General Appearance General appearance: Present: well-developed, fatigue, frail EENT: Present: mucous membranes moist Neck: Present: supple Respiratory: Present: course breath sounds Cardiology: Present: edema, normal S1, normal S2 Dialysis Vascular Access: Venous Catheter (RIJ temporary HD catheter with dressing C/D/I) Gastrointestinal: Present: normoactive bowel sounds, no tenderness Integumentary: Present: warm and dry Neurologic: Present: no focal deficit, no asterixis, alert and oriented x3 Musculoskeletal: Present: no cyanosis, no clubbing Psychiatric: Present: mood/affect appropriate, cooperative - Lab 02/18/18 03:36 02/18/18 03:00 Most recent lab results Calcium 8.7 mg/dL (8.6-10.3) 02/17/18 05:09 Magnesium 1.9 mg/dL (1.6-2.6) 02/06/18 04:56 Urine Creatinine 52 mg/dL 02/03/18 07:25 - VTE Reasons for not Prescribing Prophylaxis: Medical contraindication (Anemia, Suspected GI Bleed) Documentation of Mechanical Device: Intermittent pneumatic compression device Consult Discharge Plan - Plan Instructions: Heart Failure (DC), Chest Pain (DC), Diabetes Mellitus Type 2 in Adults (DC), Chronic Hypertension (DC), Pneumonia (DC), Joint Replacement Surgery, Database Design Analyst (GEN) Referrals: Tawana Quintero RN CRITICAL CARE [Primary Care Provider] -
--- NOTE | 2018-02-17 15:20 | Internal Med Progress Note ---
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 Patient is tolerating HD well. - appreciate nephrology and palliative care input; patient - will discuss with nephrology today about patient having permacath placed. - continue to monitor I/O - avoid nephrotoxins - renal diet (2) Cough Current Visit: Yes Status: Acute Assessment and plan: Patient had CT which showed Bilateral Pleural effusions; loculation on pleural effusion on left. Bilateral pleural effusion are transudative. - Pulmonology consulted, appreciate their recommendations - Zosyn day 6 (3) Coronary artery disease Current Visit: Yes Status: Chronic Assessment and plan: Cardiology no longer following due to patient's status. Will consider outpatient LHC. Qualifiers: Coronary Disease-Associated Artery/Lesion type: bypass graft [place] vs. transplanted heart: [place] heart Associated angina: without angina Qualified Code(s): I25.810 - Atherosclerosis of coronary artery bypass graft(s) without angina pectoris (4) Type 2 diabetes mellitus with diabetic nephropathy, with long-term current use of insulin Current Visit: Yes Status: Chronic Assessment and plan: SSI medium continue, will continue to closely monitor (5) Essential hypertension Current Visit: Yes Status: Chronic Assessment and plan: Controlled at this time. (6) DVT prophylaxis Current Visit: Yes Status: Acute Assessment and plan: On heparin sq (7) NSTEMI (non-ST elevated myocardial infarction) Current Visit: Yes Status: Resolved Assessment and plan: Pt admitted with chest pain and troponins elevated c/w acute NSTEMI. see above (8) Anemia Current Visit: Yes Status: Suspected Assessment and plan: Following. remains relatively stable today Qualifiers: Anemia type: due to chronic kidney disease Chronic kidney disease stage: stage 4 (severe) Qualified Code(s): N18.4 - Chronic kidney disease, stage 4 ( severe); D63.1 - Anemia in chronic kidney disease; D63.1 - Anemia in chronic kidney disease (9) CKD (chronic kidney disease) stage 4, GFR 15-29 ml/min Current Visit: Yes Status: Chronic Assessment and plan: Chronic issue (10) Goals of care, counseling/discussion Current Visit: Yes Status: Acute Assessment and plan: Palliative care was consulted. Status changed to DNR/DNI/CCA. Patient has agreed to do temp HD. - appreciate palliative care's input. (11) Pneumonia Current Visit: Yes Status: Acute Assessment and plan: see above Qualifiers: Pneumonia type: due to unspecified organism Laterality: left Lung location: unspecified part of lung Qualified Code(s): J18.9 - Pneumonia, unspecified organism - Time Spent With Patient Total time spent is greater than 50% in coordination of care (as documented) at patient's floor/unit and/or counseling patient: - Subjective Interval history: Patient is seen and examined. PAtient continues to report that she is having a cough, but is improving with the chest tube drain. Patient states her breathing usualy improves after dialysis, which she is scheduled to have today. Patient denies SOB, chest pain, an reports her swelling is drastically down from when she was first here. - Constitutional Vitals: Temp Pulse Resp BP Pulse Ox 97.9 F 73 16 144/67 96 02/17/18 12:14 02/17/18 12:14 02/17/18 12:14 02/17/18 12:14 02/17/18 12:14 General appearance: Present: cooperative, mild distress, A&O X 3, pleasant, obese, answers questions appropriately - Respiratory Respiratory exam: Present: rhonchi (bilateral base of lungs) - Cardiovascular Cardiovascular exam: Present: RRR - Extremities Exam Extremities exam: Present: pedal edema (0+ BLE) - Psychiatric Psychiatric exam: Present: depressed Internal Medicine: Result - Labs CBC & Chem 7: 02/17/18 05:09 02/17/18 05:09 Labs: Short CBC 02/17/18 Range/Units 05:09 WBC 5.9 (4.3-11.1) K/mcL Hgb 8.4 L (11.5-15.4) g/dL Hct 27.6 L (35.3-44.9) % Plt Count 155 (140-400) K/mcL BMP 02/17/18 05:09 Sodium 137 Potassium 3.9 Chloride 100 Carbon Dioxide 24 BUN 33 H Creatinine 6.13 H Glucose 154 H Calcium 8.7 - ABG Interpretation ABG results: PT/INR, D-dimer PT 12.5 Seconds (9.4-12.1) H 02/14/18 07:46 - Impressions Impressions Chest X-Ray 02/17/18 09:00 IMPRESSION: Interval removal of the right thoracostomy tube. Small to moderate-sized right pleural effusion remains not significantly changed. Improving mild bilateral lung airspace disease. D/ / 02/17/2018 11:05:18 Vinnie Irving MD / bernice Interpreting Provider: Vinnie Irving MD - VTE Reasons for not Prescribing Prophylaxis: Medical contraindication (Anemia, Suspected GI Bleed) Documentation of Mechanical Device: Intermittent pneumatic compression device Consult Discharge Plan - Plan Instructions: Heart Failure (DC), Chest Pain (DC), Diabetes Mellitus Type 2 in Adults (DC), Chronic Hypertension (DC), Pneumonia (DC), Joint Replacement Surgery, Clinical Administrative Coordinator (GEN) Referrals: Tawana Quintero CERTIFIED ALCOHOL DRUG COUNSELOR [Primary Care Provider] - <Que Carvalho - Last Filed: 02/17/18 15:35> Date of Encounter: 02/17/18 - Assessment and plan (1) Coronary artery disease Current Visit: Yes Status: Chronic Qualifiers: Coronary Disease-Associated Artery/Lesion type: bypass graft [place] vs. transplanted heart: [place] heart Associated angina: without angina Qualified Code(s): I25.810 - Atherosclerosis of coronary artery bypass graft(s) without angina pectoris (2) Type 2 diabetes mellitus with diabetic nephropathy, with long-term current use of insulin Current Visit: Yes Status: Chronic (3) Essential hypertension Current Visit: Yes Status: Chronic (4) DVT prophylaxis Current Visit: Yes Status: Acute (5) NSTEMI (non-ST elevated myocardial infarction) Current Visit: Yes Status: Resolved (6) Anemia Current Visit: Yes Status: Suspected Qualifiers: Anemia type: due to chronic kidney disease Chronic kidney disease stage: stage 4 (severe) Qualified Code(s): N18.4 - Chronic kidney disease, stage 4 ( severe); D63.1 - Anemia in chronic kidney disease; D63.1 - Anemia in chronic kidney disease (7) CKD (chronic kidney disease) stage 4, GFR 15-29 ml/min Current Visit: Yes Status: Chronic (8) Acute renal failure due to tubular necrosis Current Visit: Yes Status: Suspected (9) Goals of care, counseling/discussion Current Visit: Yes Status: Acute (10) Cough Current Visit: Yes Status: Acute (11) Pneumonia Current Visit: Yes Status: Acute Qualifiers: Pneumonia type: due to unspecified organism Laterality: left Lung location: unspecified part of lung Qualified Code(s): J18.9 - Pneumonia, unspecified organism - Time Spent With Patient Total time spent is greater than 50% in coordination of care (as documented) at patient's floor/unit and/or counseling patient: - Constitutional Vitals: Temp Pulse Resp BP Pulse Ox 97.9 F 73 16 144/67 96 02/17/18 12:14 02/17/18 12:14 02/17/18 12:14 02/17/18 12:14 02/17/18 12:14 Internal Medicine: Result - Labs CBC & Chem 7: 02/17/18 05:09 02/17/18 05:09 Labs: Short CBC 02/17/18 Range/Units 05:09 WBC 5.9 (4.3-11.1) K/mcL Hgb 8.4 L (11.5-15.4) g/dL Hct 27.6 L (35.3-44.9) % Plt Count 155 (140-400) K/mcL BMP 02/17/18 05:09 Sodium 137 Potassium 3.9 Chloride 100 Carbon Dioxide 24 BUN 33 H Creatinine 6.13 H Glucose 154 H Calcium 8.7 - ABG Interpretation ABG results: PT/INR, D-dimer PT 12.5 Seconds (9.4-12.1) H 02/14/18 07:46 - Impressions Impressions Chest X-Ray 02/17/18 09:00 IMPRESSION: Interval removal of the right thoracostomy tube. Small to moderate-sized right pleural effusion remains not significantly changed. Improving mild bilateral lung airspace disease. D/ / 02/17/2018 11:05:18 Vinnie Irving MD / bernice Interpreting Provider: Vinnie Irving MD - Attending Attestation I performed an independent interview and examine this patient. I agree with the findings, assessment, and plan of , internal medicine international student advisor. My input and discussion is reflected in his note. We will discuss with nephrology today regarding having a permacath placed. There is following the effusions and we are awaiting further recommendations from them. Patient continues on Zosyn day #6. Patient is comfortable. We are waiting disposition, if no further chest tube needed, and pending decision on permacath. Patient continues on dialysis every Tuesday. Cardiology is not planning on doing a left heart catheterization as an inpatient. There is still hope for renal recovery although it does not seem very likely. All else as outlined above.
[2018-02-18 03:30] LABS: Albumin 2.7 g/dL (3.5-5.7); Calcium 8.4 mg/dL (8.6-10.3); Phosphorous 3.4 mg/dL (2.7-4.5); Potassium 3.9 mEq/L (3.5-5.1)
[2018-02-18 03:47] LABS: Basophils % 0.5 %; Eosinophils # 0.3 K/mcL (0.0-0.6); Eosinophils % 5.5 %; Hematocrit 29.7 % (35.3-44.9); Hemoglobin 9.2 g/dL (11.5-15.4); Immature Granulocytes % 0.5 % (0-4); Lymphocytes # 0.7 K/mcL (0.6-4.6); Mean Corpuscular Hemoglobin 29.3 pg (28.0-33.3); Mean Corpuscular Volume 94.6 fL (83.0-100.0); Mean Platelet Volume 11.3 fL (9.4-12.4); Monocytes # 0.7 K/mcL (0.0-1.3); Neutrophils # 4.2 K/mcL (1.6-8.9); Nucleated Red Blood Cells 0.7 /100 WBC (0); Platelet Count 185 K/mcL (140-400); Red Blood Count 3.14 M/mcL (3.82-4.97); Segmented Neutrophils % 69.5 %
[2018-02-18 04:49] LABS: Platelet Estimate Normal (Normal); Reactive Lymphocytes Present (Not Present)
[2018-02-18] MEDS: *HR* Heparin 5,000 UNIT/ML VIAL SQ SCH ×2 (06:26→17:56)
[2018-02-18] MEDS: Piperacillin/Tazobactam 3.375 GM in 0.9 % Sodium Chloride Mini Bag 100 ML IVPB SCH ×2 (06:27→17:42)
[2018-02-18] MEDS: Insulin LISPRO 300 UNITS/3 ML VIAL SQ SCH ×4 (08:26→20:15)
[2018-02-18] MEDS: Famotidine 20 MG TABLET PO SCH (09:17)
[2018-02-18] MEDS: Cholecalciferol (D-3) 1,000 UNIT TABLET PO SCH (09:17)
[2018-02-18] MEDS: Aspirin 81 MG TAB.CHEW PO SCH (09:17)
[2018-02-18] MEDS: Benzonatate 100 MG CAPSULE PO SCH ×3 (09:17→20:16)
[2018-02-18] MEDS: Insulin NPH/REG 70/30 100 UNIT/ML (x5UNIT) SQ SCH ×2 (09:20→16:38)
--- NOTE | 2018-02-18 09:49 | Event Note ---
Date of Encounter: 02/18/18 Time of Encounter: 09:48 Nephrology Chart Review She completed HD yesterday, and will plan for HD on Tuesday, but will also plan for a Permacath on Tuesday (and to be NPO Tuesday night). I will be available this weekend, and please feel free to call or page me. Thank you.
--- NOTE | 2018-02-18 14:31 | Internal Med Progress Note ---
Date of Encounter: 02/18/18 Time of Encounter: 10:30 - Assessment and plan (1) Coronary artery disease Current Visit: Yes Status: Chronic Assessment and plan: Cardiology no longer following due to patient's status. Will consider outpatient [facility]. 02/18: Recent non-STEMI. Echocardiogram was EF of 55%. Mild hypokinesis of the right ventricle. Moderate to severe tricuspid regurgitation, severe pulmonary hypertension with an RSVP of 70-75 mmHg. Medical management for now. Aspirin, beta shannon and statin Qualifiers: Coronary Disease-Associated Artery/Lesion type: bypass graft [place] vs. transplanted heart: [place] heart Associated angina: without angina Qualified Code(s): I25.810 - Atherosclerosis of coronary artery bypass graft(s) without angina pectoris (2) Type 2 diabetes mellitus with diabetic nephropathy, with long-term current use of insulin Current Visit: Yes Status: Chronic Assessment and plan: SSI medium continue, will continue to closely monitor 02/18: Labile blood sugars, monitor (3) Essential hypertension Current Visit: Yes Status: Chronic Assessment and plan: Controlled at this time. 02/18: Reasonable control, monitor uptitrate beta shannon if able. (4) DVT prophylaxis Current Visit: Yes Status: Acute Assessment and plan: On heparin sq (5) NSTEMI (non-ST elevated myocardial infarction) Current Visit: Yes Status: Resolved Assessment and plan: Pt admitted with chest pain and troponins elevated c/w acute NSTEMI. see above (6) Anemia Current Visit: Yes Status: Suspected Assessment and plan: Following. remains relatively stable today 02/18: Hemoglobin remains stable. most likely anemia due to chronic kidney failure Qualifiers: Anemia type: due to chronic kidney disease Chronic kidney disease stage: stage 4 (severe) Qualified Code(s): N18.4 - Chronic kidney disease, stage 4 ( severe); D63.1 - Anemia in chronic kidney disease; D63.1 - Anemia in chronic kidney disease (7) CKD (chronic kidney disease) stage 4, GFR 15-29 ml/min Current Visit: Yes Status: Chronic Assessment and plan: Chronic issue 02/18: Permacath on Tuesday, February 20. Ongoing hemodialysis every Tuesday. (8) Acute renal failure due to tubular necrosis Current Visit: Yes Status: Suspected (9) Goals of care, counseling/discussion Current Visit: Yes Status: Acute (10) Cough Current Visit: Yes Status: Acute (11) Pneumonia Current Visit: Yes Status: Acute Assessment and plan: see above 02/18: Patient is day 7 IV Zosyn. Will need to discuss with pulmonary medicine regarding duration. All cultures are negative. Patient remains afebrile and hemodynamically stable. Qualifiers: Pneumonia type: due to unspecified organism Laterality: left Lung location: unspecified part of lung Qualified Code(s): J18.9 - Pneumonia, unspecified organism (12) Diarrhea Current Visit: Yes Status: Acute Assessment and plan: Will check stool for C. difficile. If negative, then can consider Imodium Qualifiers: Diarrhea type: unspecified type Qualified Code(s): R19.7 - Diarrhea, unspecified - Time Spent With Patient Total time spent is greater than 50% in coordination of care (as documented) at patient's floor/unit and/or counseling patient: Greater than 35 minutes - Subjective Interval history: Brief Hosp Summary: This is a 73-year-old female with multiple medical problems including coronary disease status post CABG and stenting, diabetes, hypertension, chronic kidney disease stage 3, and recent shoulder arthroscopy. She has had a prolonged hospital stay. She was initially admitted on January 26 for chest pain evaluation for which she was diagnosed with a non-ST elevation MS. He was initially started on heparin with plans for heart catheter. Unfortunately she developed acute blood loss anemia, and underwent EGD and colonoscopy on January 30. EGD showed a single nonbleeding angiodysplastic lesion in the stomach. All else was normal. Colonoscopy was normal. No obvious source of bleeding was identified. She unfortunately also developed acute worsening of her chronic kidney. She was given Lasix which has been stopped as this may have contributed. Despite this her creatinine continued to worsen and on February 08 she underwent placement of a temporary hemodialysis catheter. She has been receiving hemodialysis ever since. The Patient is during this hospitalization include refractory pleural effusions for which she has had chest tubes which have since been removed. Patient presently is comfortable. Given that her renal function has not improved, plans are for a permacath to be placed on 02/20/2018. Once this is placed she can be transferred to a facility. I believe with regards to her non-ST elevation MS, a cardiac catheterization has been put on hold as she is unable to lay flat, and would also like to ensure that there is still some hope of renal recovery prior to this. Plans are for elective cardiac catheterization as an outpatient. 02/18: Patient states she is feeling better today overall. No shortness of breath. Chest tube was then removed. She had dialysis yesterday. Nephrology is planning for a permacath on Tuesday. Patient states she has had 5 loose stools since last night. Watery and runny. She denies having had a history of C. difficile colitis. She denies any abdominal pain. No fevers or chills. No chest pain. No nausea or vomiting. - Constitutional Vitals: Temp Pulse Resp BP Pulse Ox 98 F 85 18 167/63 95 02/18/18 07:56 02/18/18 07:56 02/18/18 07:56 02/18/18 07:56 02/18/18 09:15 General appearance: Present: cooperative, A&O X 3, pleasant, obese, answers questions appropriately Exam: Thin, frail - Head Head exam: Present: atraumatic, normocephalic - Eye Eye exam: Present: PERRL, conjuntiva pink, sclera anicteric Pupils: Present: PERRL - Neck Neck exam general surgery: Present: supple, trachea midline. Absent: lymphadenopathy Additional comments: Right IJ line intact - Respiratory Respiratory exam: Present: decreased breath sounds, rales - Cardiovascular Cardiovascular exam: Present: RRR, +S1, +S2. Absent: diastolic murmur, gallop, rubs, systolic murmur - GI/Abdominal GI/Abdominal exam: Present: normal bowel sounds, soft, no peritoneal signs. Absent: distended, tenderness - Extremities Exam Extremities exam: Present: warm, radial pulses palpable and symmetrical. Absent : calf tenderness, cyanotic, pedal edema - Neurological Exam Neurological exam: Present: CN II-XII intact, oriented X3, no focal deficits. Absent: pronater drift, facial droop, speech deficit - Skin Skin exam: Present: dry, intact Internal Medicine: Result - Labs CBC & Chem 7: 02/18/18 03:36 02/18/18 03:00 Labs: Short CBC 02/18/18 Range/Units 03:36 WBC 6.0 (4.3-11.1) K/mcL Hgb 9.2 L (11.5-15.4) g/dL Hct 29.7 L (35.3-44.9) % Plt Count 185 (140-400) K/mcL Neutrophils # 4.2 (1.6-8.9) K/mcL BMP 02/18/18 03:00 Sodium 140 Potassium 3.9 Chloride 103 Carbon Dioxide 26 BUN 14 Creatinine 3.83 H Glucose 51 L Calcium 8.4 L Liver Function 02/18/18 Range/Units 03:00 Albumin 2.7 L (3.5-5.7) g/dL - ABG Interpretation ABG results: PT/INR, D-dimer PT 12.5 Seconds (9.4-12.1) H 02/14/18 07:46 - Impressions Impressions Chest X-Ray 02/18/18 07:00 IMPRESSION: Mildly increased bibasilar airspace disease likely represents atelectasis. Small to moderate right pleural effusion is unchanged. D/ / Javier Biswas MD / Javier Biswas MD Interpreting Provider: Javier Biswas MD - VTE Reasons for not Prescribing Prophylaxis: Medical contraindication (Anemia, Suspected GI Bleed) Documentation of Mechanical Device: Intermittent pneumatic compression device Consult Discharge Plan - Plan Instructions: Heart Failure (DC), Chest Pain (DC), Diabetes Mellitus Type 2 in Adults (DC), Chronic Hypertension (DC), Pneumonia (DC), Joint Replacement Surgery, Denture Packer (GEN) Referrals: Tawana Quintero CNP [Primary Care Provider] -
[2018-02-18] MEDS: *HR* LORazepam 0.5 MG TABLET PO PRN (20:21)
[2018-02-19] MEDS: *HR* Heparin 5,000 UNIT/ML VIAL SQ SCH ×2 (05:26→17:14)
[2018-02-19] MEDS: Piperacillin/Tazobactam 3.375 GM in 0.9 % Sodium Chloride Mini Bag 100 ML IVPB SCH ×2 (05:27→17:09)
[2018-02-19] MEDS: Aspirin 81 MG TAB.CHEW PO SCH (08:46)
[2018-02-19] MEDS: Cholecalciferol (D-3) 1,000 UNIT TABLET PO SCH (08:46)
[2018-02-19] MEDS: Famotidine 20 MG TABLET PO SCH (08:47)
[2018-02-19] MEDS: Benzonatate 100 MG CAPSULE PO SCH ×3 (08:48→21:44)
[2018-02-19] MEDS: Insulin NPH/REG 70/30 100 UNIT/ML (x5UNIT) SQ SCH ×2 (08:48→17:08)
[2018-02-19] MEDS: Insulin LISPRO 300 UNITS/3 ML VIAL SQ SCH ×4 (08:49→21:45)
[2018-02-19] MEDS: *HR* LORazepam 0.5 MG TABLET PO PRN ×2 (12:02→22:02)
--- NOTE | 2018-02-19 12:17 | Internal Med Progress Note ---
Date of Encounter: 02/19/18 Time of Encounter: 12:14 - Assessment and plan (1) CKD (chronic kidney disease) stage 4, GFR 15-29 ml/min Current Visit: Yes Status: Chronic Assessment and plan: Acute renal failure failure, history of chronic kidney disease stage III/4, now requiring dialysis Permacath on Tuesday, February 20. Ongoing hemodialysis every Tuesday. (2) Coronary artery disease Current Visit: Yes Status: Chronic Assessment and plan: Cardiology no longer following due to patient's status. Will consider outpatient [facility]. Recent non-STEMI. Echocardiogram was EF of 55%. Mild hypokinesis of the right ventricle. Moderate to severe tricuspid regurgitation, severe pulmonary hypertension with an RSVP of 70-75 mmHg. Medical management for now. Aspirin, beta shannon and statin Qualifiers: Coronary Disease-Associated Artery/Lesion type: bypass graft [place] vs. transplanted heart: [place] heart Associated angina: without angina Qualified Code(s): I25.810 - Atherosclerosis of coronary artery bypass graft(s) without angina pectoris (3) Type 2 diabetes mellitus with diabetic nephropathy, with long-term current use of insulin Current Visit: Yes Status: Chronic Assessment and plan: SSI medium continue, will continue to closely monitor Labile blood sugars, monitor (4) Essential hypertension Current Visit: Yes Status: Chronic Assessment and plan: Controlled at this time. monitor uptitrate beta shannon if able. (5) NSTEMI (non-ST elevated myocardial infarction) Current Visit: Yes Status: Resolved Assessment and plan: Pt admitted with chest pain and troponins elevated c/w acute NSTEMI. see above (6) Anemia Current Visit: Yes Status: Suspected Assessment and plan: Following. remains relatively stable today Hemoglobin remains stable. most likely anemia due to chronic kidney failure 01/29/2018 EGD: demonstrated small nonbleeding angiodysplasia in fundus. Biopsies and cauterization. Unremarkable colonoscopy Qualifiers: Anemia type: due to chronic kidney disease Chronic kidney disease stage: stage 4 (severe) Qualified Code(s): N18.4 - Chronic kidney disease, stage 4 ( severe); D63.1 - Anemia in chronic kidney disease; D63.1 - Anemia in chronic kidney disease (7) Acute renal failure due to tubular necrosis Current Visit: Yes Status: Suspected Assessment and plan: Patient is scheduled to have HD MWF, and most likely will have nursing home. Patient is tolerating HD well. - appreciate nephrology and palliative care input; patient - Nephrology recommending permanent dialysis catheter - continue to monitor I/O - avoid nephrotoxins - renal diet (8) Goals of care, counseling/discussion Current Visit: Yes Status: Acute Assessment and plan: Palliative care was consulted. Status changed to DNR/DNI/CCA. Patient has agreed to do temp HD. - appreciate palliative care's input. (9) Cough Current Visit: Yes Status: Acute Assessment and plan: Patient had CT which showed Bilateral Pleural effusions; loculation on pleural effusion on left. Bilateral pleural effusion are transudative. - Pulmonology consulted - Zosyn day 8 (10) Pneumonia Current Visit: Yes Status: Acute Assessment and plan: see above Patient is on IV Zosyn. Qualifiers: Pneumonia type: due to unspecified organism Laterality: left Lung location: unspecified part of lung Qualified Code(s): J18.9 - Pneumonia, unspecified organism (11) Diarrhea Current Visit: Yes Status: Acute Assessment and plan: Will check stool for C. difficile including GI panel. If negative, then can consider Imodium Qualifiers: Diarrhea type: unspecified type Qualified Code(s): R19.7 - Diarrhea, unspecified - Time Spent With Patient Total time spent is greater than 50% in coordination of care (as documented) at patient's floor/unit and/or counseling patient: - Subjective Interval history: Feeling better, less short of breath, bringing up some phlegm, complains of persistent watery diarrhea without abdominal pain or fevers. No chest pain, still makes urine, no dysuria - Constitutional Vitals: Temp Pulse Resp BP Pulse Ox 98.6 F 75 18 140/79 98 02/19/18 07:59 02/19/18 07:59 02/19/18 07:59 02/19/18 07:59 02/19/18 07:59 General appearance: Present: cooperative, A&O X 3, pleasant, obese, answers questions appropriately - Head Head exam: Present: atraumatic, normocephalic Additional comments: Right IJ dialysis catheter - Eye Eye exam: Present: PERRL, conjuntiva pink, sclera anicteric Pupils: Present: PERRL - Neck Neck exam general surgery: Present: supple, trachea midline. Absent: lymphadenopathy - Respiratory Respiratory exam: Present: CTAB, rales (Bibasilar crackles, no wheezing). Absent: accessory muscle use, rhonchi, wheezes - Cardiovascular Cardiovascular exam: Present: RRR, +S1, +S2. Absent: diastolic murmur, gallop, rubs, systolic murmur - GI/Abdominal GI/Abdominal exam: Present: distended, normal bowel sounds, soft, no peritoneal signs. Absent: tenderness - Extremities Exam Extremities exam: Present: pedal edema (+1 pitting edema in both lower extremities), warm, radial pulses palpable and symmetrical. Absent: calf tenderness, cyanotic - Neurological Exam Neurological exam: Present: CN II-XII intact, oriented X3, no focal deficits. Absent: pronater drift, facial droop, speech deficit - Skin Skin exam: Present: dry, intact Internal Medicine: Result - Labs CBC & Chem 7: 02/18/18 03:36 02/18/18 03:00 - ABG Interpretation ABG results: PT/INR, D-dimer PT 12.5 Seconds (9.4-12.1) H 02/14/18 07:46 - Impressions Impressions Chest X-Ray 02/15/18 06:53 IMPRESSION: Interval placement of a right pleural catheter with interval decrease in size of right pleural effusion. Otherwise stable chest. No pneumothorax. D/ / 02/15/2018 07:28:00 Ese Fuentes MD / yovany Interpreting Provider: Ese Fuentes MD - VTE Reasons for not Prescribing Prophylaxis: Medical contraindication (Anemia, Suspected GI Bleed) Documentation of Mechanical Device: Intermittent pneumatic compression device Consult Discharge Plan - Plan Instructions: Heart Failure (DC), Chest Pain (DC), Diabetes Mellitus Type 2 in Adults (DC), Chronic Hypertension (DC), Pneumonia (DC), Joint Replacement Surgery, Cob Sawyer (GEN) Referrals: Tawana Quintero, SILK OPENER [Primary Care Provider] -
[2018-02-20 05:22] LABS: Hemoglobin 8.4 g/dL (11.5-15.4); Mean Corpuscular HGB Conc 31.1 g/dL (31.6-35.5); Mean Corpuscular Hemoglobin 29.7 pg (28.0-33.3); Mean Corpuscular Volume 95.4 fL (83.0-100.0); Mean Platelet Volume 10.9 fL (9.4-12.4); Platelet Count 173 K/mcL (140-400); Red Blood Count 2.83 M/mcL (3.82-4.97)
[2018-02-20 05:25] LABS: INR 1.2; Prothrombin Time 12.8 Seconds (9.4-12.1)
[2018-02-20 05:42] LABS: Calcium 8.2 mg/dL (8.6-10.3); Potassium 4.3 mEq/L (3.5-5.1)
[2018-02-20] MEDS: *HR* Heparin 5,000 UNIT/ML VIAL SQ SCH ×2 (06:00→19:17)
[2018-02-20] MEDS: Piperacillin/Tazobactam 3.375 GM in 0.9 % Sodium Chloride Mini Bag 100 ML IVPB SCH (06:00)
[2018-02-20] MEDS ORDERED: 0.9 % Sodium Chloride 250 ML IVC PRN (07:46)
[2018-02-20] MEDS: Aspirin 81 MG TAB.CHEW PO SCH (08:08)
[2018-02-20] MEDS: Benzonatate 100 MG CAPSULE PO SCH ×3 (08:10→21:36)
[2018-02-20] MEDS: Cholecalciferol (D-3) 1,000 UNIT TABLET PO SCH (08:10)
[2018-02-20] MEDS: Famotidine 20 MG TABLET PO SCH (08:10)
[2018-02-20] MEDS: Insulin LISPRO 300 UNITS/3 ML VIAL SQ SCH ×4 (08:16→21:43)
[2018-02-20] MEDS: Insulin NPH/REG 70/30 100 UNIT/ML (x5UNIT) SQ SCH ×2 (08:16→19:14)
[2018-02-20] MEDS: *HR* LORazepam 0.5 MG TABLET PO PRN ×2 (08:20→19:17)
[2018-02-20] MEDS ORDERED: 0.9 % Sodium Chloride 1,000 ML ONE (08:31)
--- NOTE | 2018-02-20 08:58 | Nephrology Progress Note ---
Date of Encounter: 02/20/18 Time of Encounter: 08:40 - Assessment and Plan (1) Acute kidney injury superimposed on CKD Current Visit: Yes Status: Acute Dialyis dependent ASHLEY. Needs a Permacath today (she is NPO) and HD to follow. Orders are in place. I spoke with IR to confirm that she is on their schedule. Will also make sure that she has a SW consult to help facilitate a Chair time. She was originally established with Dr. Sharp during this hospitalization, who had the pt undergo an ASHLEY work up, so she would be the primary poultry offal icer. Continue to follow a renal protective strategy: Avoid NSAIDs, and other nephrotoxins. Dose renally cleared Rx by GFR. Thank you. (2) CKD (chronic kidney disease) stage 4, GFR 15-29 ml/min Current Visit: Yes Status: Chronic Chronic baseline per report. ASHLEY work up was previously undertaken by my colleagues. (3) Metabolic acidosis Current Visit: Yes Status: Acute Improved with dialysis (4) Essential hypertension Current Visit: Yes Status: Chronic Holding HEMANTH or ARB currently d/t the ASHLEY. Thank you. Subjective Principal diagnosis: NSTEMI, CKD, anemia Interval history: Pt was s/e earlier in the day. She reported feeling relatively well today. She affirmed that she has not eaten breakfast yet today. We discussed renal failure and her need for dialysis, thus the need for a Permacat; she voiced agreement. Objective - Vital Signs Vital signs: Vital Signs Temp Pulse Resp BP Pulse Ox 02/20/18 07:31 98.3 F 162/81 02/20/18 07:00 82 18 96 02/20/18 05:27 97.5 F L 77 18 159/69 97 02/19/18 20:26 98.1 F 89 18 131/64 95 02/19/18 17:14 98.6 F 90 18 148/63 96 02/19/18 12:00 98.3 F 82 18 142/62 98 Intake and Output 02/19/18 02/20/18 02/20/18 23:59 07:59 15:59 Intake Total 100 / 100 0 / 0 Balance 100 / 100 0 / 0 Intake: IV Fluids 100 / 100 Zosyn 3.375 GM In 0.9 % Sodium 100 / 100 Chloride (Mini-Bag +) 100 ML @ 25 mls/hr IVPB Q12HR L[facility]ON Rx#: [id number] Oral 0 / 0 0 / 0 Other: Stool Size Small Stool Consistency loose Stool Color Brown # Voids 0 0 # Bowel Movements 1 Weight 60.7 kg Blood Glucose* 113 150 Patient Weight 02/20/18 23:59 Weight 60.7 kg - General Appearance General appearance: Present: well-developed, well-nourished, appears started age EENT: Present: ATNC, PERRL, mucous membranes moist Neck: Present: supple Respiratory: Present: clear Cardiology: Present: no edema, regular rate, regular rhythm, normal S1, normal S2 Dialysis Vascular Access: Venous Catheter (RIJ temporary HD catheter with dressing C/D/I) Gastrointestinal: Present: normoactive bowel sounds, no tenderness, no guarding Integumentary: Present: warm and dry Neurologic: Present: no focal deficit, no asterixis, alert and oriented x3 Musculoskeletal: Present: no deformities, no erythema, no cyanosis Psychiatric: Present: mood/affect appropriate, cooperative - Lab 02/20/18 05:13 02/20/18 05:13 Most recent lab results Calcium 8.2 mg/dL (8.6-10.3) L 02/20/18 05:13 Phosphorus 3.4 mg/dL (2.7-4.5) 02/18/18 03:00 Magnesium 1.9 mg/dL (1.6-2.6) 02/06/18 04:56 Urine Creatinine 52 mg/dL 02/03/18 07:25 - VTE Reasons for not Prescribing Prophylaxis: Medical contraindication (Anemia, Suspected GI Bleed) Documentation of Mechanical Device: Intermittent pneumatic compression device Consult Discharge Plan - Plan Instructions: Heart Failure (DC), Chest Pain (DC), Diabetes Mellitus Type 2 in Adults (DC), Chronic Hypertension (DC), Pneumonia (DC), Joint Replacement Surgery, Software Test Engineer (GEN) Referrals: Tawana Quintero, [employer]KER [Primary Care Provider] -
--- NOTE | 2018-02-20 10:37 | Internal Med Progress Note ---
<Anastacio Oscar - Last Filed: 02/20/18 11:10> Date of Encounter: 02/20/18 Time of Encounter: 10:35 - Assessment and plan (1) Coronary artery disease Current Visit: Yes Status: Chronic Assessment and plan: Cardiology no longer following due to patient's status. Will consider outpatient C. Recent non-STEMI. Echocardiogram was EF of 55%. Mild hypokinesis of the right ventricle. Moderate to severe tricuspid regurgitation, severe pulmonary hypertension with an RSVP of 70-75 mmHg. - Medical management for now. - ct Aspirin, beta shannon and statin Qualifiers: Coronary Disease-Associated Artery/Lesion type: bypass graft [place] vs. transplanted heart: [place] heart Associated angina: without angina Qualified Code(s): I25.810 - Atherosclerosis of coronary artery bypass graft(s) without angina pectoris (2) Type 2 diabetes mellitus with diabetic nephropathy, with long-term current use of insulin Current Visit: Yes Status: Chronic Assessment and plan: SSI medium continue, will continue to closely monitor - Labile blood sugars, monitor (3) Essential hypertension Current Visit: Yes Status: Chronic Assessment and plan: Controlled at this time. monitor uptitrate beta shannon if able. (4) NSTEMI (non-ST elevated myocardial infarction) Current Visit: Yes Status: Resolved Assessment and plan: Pt admitted with chest pain and troponins elevated c/w acute NSTEMI. see above (5) Anemia Current Visit: Yes Status: Suspected Assessment and plan: Following. remains relatively stable today Hemoglobin remains stable. most likely anemia due to chronic kidney failure 01/29/2018 EGD: demonstrated small nonbleeding angiodysplasia in fundus. Biopsies and cauterization. Unremarkable colonoscopy Qualifiers: Anemia type: due to chronic kidney disease Chronic kidney disease stage: stage 4 (severe) Qualified Code(s): N18.4 - Chronic kidney disease, stage 4 ( severe); D63.1 - Anemia in chronic kidney disease; D63.1 - Anemia in chronic kidney disease (6) CKD (chronic kidney disease) stage 4, GFR 15-29 ml/min Current Visit: Yes Status: Chronic Assessment and plan: Acute renal failure failure, history of chronic kidney disease stage III/4, now requiring dialysis Permacath on Tuesday, February 20. Ongoing hemodialysis every Tuesday. 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 Patient is tolerating HD well. - appreciate nephrology and palliative care input; patient - Nephrology recommending permanent dialysis catheter - continue to monitor I/O - avoid nephrotoxins - renal diet (8) Goals of care, counseling/discussion Current Visit: Yes Status: Acute Assessment and plan: Palliative care was consulted. Status changed to DNR/DNI/CCA. Patient has agreed to do temp HD. - appreciate palliative care's input. (9) Cough Current Visit: Yes Status: Acute Assessment and plan: Patient had CT which showed Bilateral Pleural effusions; loculation on pleural effusion on left. Bilateral pleural effusion are transudative. - Pulmonology consulted - Zosyn day 9 (10) Pneumonia Current Visit: Yes Status: Acute Assessment and plan: see above Patient is on IV Zosyn. Qualifiers: Pneumonia type: due to unspecified organism Laterality: left Lung location: unspecified part of lung Qualified Code(s): J18.9 - Pneumonia, unspecified organism (11) Pleural effusion Current Visit: Yes Status: Acute Assessment and plan: bilateral pleural effusion. Right sided was drained, and Left side was aspirated due to loculation. Both sides were transudative secondary to CHF, and most likely chronic (12) Diarrhea Current Visit: Yes Status: Acute Assessment and plan: c diff is negative. will order imodium prn Qualifiers: Diarrhea type: unspecified type Qualified Code(s): R19.7 - Diarrhea, unspecified - Time Spent With Patient Total time spent is greater than 50% in coordination of care (as documented) at patient's floor/unit and/or counseling patient: - Subjective Interval history: Patient is seen and examined. Patient reports that cough is improved from last week. Her only complaint is that she's hungry, but she knows she's NPO until after her permacath placement today. Patient denies SOB, chest pain, [place], vomiting, fever, chills. - Constitutional Vitals: Temp Pulse Resp BP Pulse Ox 98.3 F 82 18 162/81 96 02/20/18 07:31 02/20/18 07:00 02/20/18 07:00 02/20/18 07:31 02/20/18 07:00 General appearance: Present: cooperative, A&O X 3, pleasant, obese, answers questions appropriately - Head Head exam: Present: atraumatic, normocephalic - Eye Eye exam: Present: PERRL, conjuntiva pink, sclera anicteric Pupils: Present: PERRL - Neck Neck exam general surgery: Present: supple, trachea midline. Absent: lymphadenopathy - Respiratory Respiratory exam: Present: decreased breath sounds, rhonchi. Absent: CTAB, rales, respiratory distress, wheezes - Cardiovascular Cardiovascular exam: Present: RRR, systolic murmur (3/6 systolic murmum 4th IC on L) - GI/Abdominal GI/Abdominal exam: Present: normal bowel sounds, soft. Absent: guarding, rebound, rigid, tenderness - Extremities Exam Extremities exam: Present: warm. Absent: pedal edema, tenderness - Neurological Exam Neurological exam: Present: alert, oriented X3 - Psychiatric Psychiatric exam: Present: normal affect, normal mood Internal Medicine: Result - Labs CBC & Chem 7: 02/20/18 05:13 02/20/18 05:13 Labs: Short CBC 02/20/18 Range/Units 05:13 WBC 5.6 (4.3-11.1) K/mcL Hgb 8.4 L (11.5-15.4) g/dL Hct 27.0 L (35.3-44.9) % Plt Count 173 (140-400) K/mcL BMP 02/20/18 05:13 Sodium 141 Potassium 4.3 Chloride 103 Carbon Dioxide 23 BUN 38 H Creatinine 7.37 H Glucose 107 H Calcium 8.2 L - ABG Interpretation ABG results: PT/INR, D-dimer PT 12.8 Seconds (9.4-12.1) H 02/20/18 05:13 - VTE Reasons for not Prescribing Prophylaxis: Medical contraindication (Anemia, Suspected GI Bleed) Documentation of Mechanical Device: Intermittent pneumatic compression device Consult Discharge Plan - Plan Instructions: Heart Failure (DC), Chest Pain (DC), Diabetes Mellitus Type 2 in Adults (DC), Chronic Hypertension (DC), Pneumonia (DC), Joint Replacement Surgery, 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 transplanted heart: [place] heart Associated angina: without angina Qualified Code(s): I25.810 - Atherosclerosis of coronary artery bypass graft(s) without angina pectoris (2) Type 2 diabetes mellitus with diabetic nephropathy, with long-term current use of insulin Current Visit: Yes Status: Chronic (3) Essential hypertension Current Visit: Yes Status: Chronic (4) NSTEMI (non-ST elevated myocardial infarction) Current Visit: Yes Status: Resolved (5) Anemia Current Visit: Yes Status: Suspected Qualifiers: Anemia type: due to chronic kidney disease Chronic kidney disease stage: stage 4 (severe) Qualified Code(s): N18.4 - Chronic kidney disease, stage 4 ( severe); D63.1 - Anemia in chronic kidney disease; D63.1 - Anemia in chronic kidney disease (6) CKD (chronic kidney disease) stage 4, GFR 15-29 ml/min Current Visit: Yes Status: Chronic (7) Acute renal failure due to tubular necrosis Current Visit: Yes Status: Suspected (8) Goals of care, counseling/discussion Current Visit: Yes Status: Acute (9) Cough Current Visit: Yes Status: Acute (10) Pneumonia Current Visit: Yes Status: Acute Qualifiers: Pneumonia type: due to unspecified organism Laterality: left Lung location: unspecified part of lung Qualified Code(s): J18.9 - Pneumonia, unspecified organism (11) Pleural effusion Current Visit: Yes Status: Acute (12) Diarrhea Current Visit: Yes Status: Acute Qualifiers: Diarrhea type: unspecified type Qualified Code(s): R19.7 - Diarrhea, unspecified - Time Spent With Patient Total time spent is greater than 50% in coordination of care (as documented) at patient's floor/unit and/or counseling patient: - Constitutional Vitals: Temp Pulse Resp BP Pulse Ox 98.3 F 84 18 162/62 99 02/20/18 07:31 02/20/18 14:08 02/20/18 14:08 02/20/18 14:08 02/20/18 14:08 Internal Medicine: Result - Labs CBC & Chem 7: 02/20/18 05:13 02/20/18 05:13 Labs: Short CBC 02/20/18 Range/Units 05:13 WBC 5.6 (4.3-11.1) K/mcL Hgb 8.4 L (11.5-15.4) g/dL Hct 27.0 L (35.3-44.9) % Plt Count 173 (140-400) K/mcL BMP 02/20/18 05:13 Sodium 141 Potassium 4.3 Chloride 103 Carbon Dioxide 23 BUN 38 H Creatinine 7.37 H Glucose 107 H Calcium 8.2 L - ABG Interpretation ABG results: PT/INR, D-dimer PT 12.8 Seconds (9.4-12.1) H 02/20/18 05:13 - Attending Attestation Acute renal failure failure, history of chronic kidney disease stage III/4, now requiring dialysis Permacath for dialysis placed today Ongoing hemodialysis every Tuesday. NSTEMI Cardiology will consider outpatient LHC. Recent non-STEMI. Echocardiogram was EF of 55%. Mild hypokinesis of the right ventricle. Moderate to severe tricuspid regurgitation, severe pulmonary hypertension with an RSVP of 70-75 mmHg. Medical management for now. Aspirin, beta shannon and statin I examined this patient and my medical decision-making was reviewed with the Resident Physician. I agree with the documented findings, disposition and treatment plan as described except to the extent set forth below.
--- NOTE | 2018-02-20 11:24 | Discharge Summary ---
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 transplanted heart: [place] heart Associated angina: without angina Qualified Code(s): I25.810 - Atherosclerosis of coronary artery bypass graft(s) without angina pectoris (3) Type 2 diabetes mellitus with diabetic nephropathy, with long-term current use of insulin Priority: Secondary Status: Chronic (4) Essential hypertension Priority: Secondary Status: Chronic (5) NSTEMI (non-ST elevated myocardial infarction) Priority: Secondary Status: Resolved (6) Anemia Priority: Secondary Status: Suspected Qualifiers: Anemia type: due to chronic kidney disease Chronic kidney disease stage: stage 4 (severe) Qualified Code(s): N18.4 - Chronic kidney disease, stage 4 ( severe); D63.1 - Anemia in chronic kidney disease; D63.1 - Anemia in chronic kidney disease (7) CKD (chronic kidney disease) stage 4, GFR 15-29 ml/min Priority: Secondary Status: Chronic (8) Goals of care, counseling/discussion Priority: Secondary Status: Acute (9) Cough Priority: Secondary Status: Acute (10) Pneumonia Priority: Secondary Status: Acute Qualifiers: Pneumonia type: due to unspecified organism Laterality: left Lung location: unspecified part of lung Qualified Code(s): J18.9 - Pneumonia, unspecified organism (11) Pleural effusion Priority: Secondary Status: Acute (12) Diarrhea Priority: Secondary Status: Acute Qualifiers: Diarrhea type: unspecified type Qualified Code(s): R19.7 - Diarrhea, unspecified Hospital course: Ms. Andres is a 73 year old female w/ pmh of IN w/ 3 stents and CABG presented to [facility] with Chest pain on 01/20/18 after having her right should scoped that day. It was noted that the patient became hypotensive during the procedure earlier during the day. Due to patient's cardiac history, Cardiology was consulted immediately. On EKG pateint was found to have new anterior lateral T-wave inversions and ST segment depressions. On CXR showed hazy bialteral pulmonary opacities suggestive of PNA or partial atelectasis w/ right pleural effusion. Patient was also found to have elevated trops 0.71, 5.22, 8.67, and 8.03. Patient was determined to have NSTEMI by cardiology and recommend to have LHC. But due to hgb of 7.9 on admission, GI was first consulted for concerns of GI bleed. Per GI, EGD and colonoscopy were performed which showed small angiodysplasia in the fundus and were cauterized. Anemia was most likely due to recent shoulder procedure and heparin administration. Patient was administered 1 unit of prbc, and hgb remained stable for the remainder of hospitalization around 9.5. Cardiology was planning on LHC after scopes, but patient developed ASHLEY on CKD and held off until Kidney function improved. Nephrology was consulted. FEUrea was 46.7% which was suggestive of intrinsic renal disease 2/2 ischemia experienced during hypotensive episode experienced during shoulder procedure. Cr continued to elevate for about a week and was further worked up with uEosinophils, CUBA, C3, C4, ANCA, Microalbumin/Cr whcih all came back negative. Cr function failed to improve, and patient agreed to have hemodialysis. Palliative care was consulted to discuss goals of therapy. Patient code status was changed to DNR/DNI/CCA. Patient had temp cath placed, and received multiple weeks of HD during hospitalization. Patient had no recovery of renal function, and it was determined that patient would benefit for outpatient HD in the future. Patient had permacath placed and seat time at HD was setup by nephrology. Cardiology was reconsulted, but due to patients continued poor renal function cardiology signed off and suggested LHC outpatient. Also, patient was unable to lay flat. CXR found pleural effusion, and CT confirmed that patient had a medium size right sided pleural effusion, and small loculated pleural effusion on the left. IR was consulted and patient had chest tube placed on right. Pulmonology was consulted for Left pleural effusion due to loculation. IR aspirated left pleural effusion. Both pleural effusions were determined to be transudative most likely secondary to CHF. Patient was treated with Zosyn prophylactically. All cultures were negative, and zosyn was stopped. Further workup during hospitalization included MRI brain/spine, head CT, UE U/S and UE venous duplex for left arm weakness which were negative for acute Discharge discussed with: patient, social work, case management Time spent discussing smoking cessation with patient: more than 10 minutes - Time Spent with Patient Total time spent providing and/or coordinating discharge services: Greater than 30 minutes - Discharge Medications Prescriptions: Ondansetron ODT [Zofran ODT] 4 mg PO Q6HR 30 Days #6 tab.rapdis Home Medications: Insulin NPH Hum/Reg Insulin Hm [Novolin 70-30 100 Unit/ml Vial] 12 unit SQ QPM 07/31/16 [History] Insulin NPH Hum/Reg Insulin Hm [Novolin 70-30 100 Unit/ml Vial] 22 unit SQ QAM 07/31/16 [History] Metoprolol [Lopressor] 12.5 mg PO BID 07/31/16 [History] Ranitidine HCl [Heartburn Relief] 150 mg PO BID 07/31/16 [History] Ergocalciferol (VITAMIN D2) [Vitamin D2 (50,000 UNIT)] 50,000 unit PO Q14D 08/01 [History] Rosuvastatin [Crestor] 40 mg PO HS #30 tablet 08/02/16 [Rx] Furosemide [Lasix] 20 mg PO DAILY 01/25/18 [History] Nitroglycerin [Nitrostat] 0.4 mg SL Q5M PRN 01/25/18 [History] Aspirin 81 mg PO DAILY tab.chew 02/20/18 [Rx] Ondansetron ODT [Zofran ODT] 4 mg PO Q6HR 30 Days #6 tab.rapdis 02/21/18 [Rx] Allergies/Adverse Reactions: 3 Allergy/AdvReac Type Severity Reaction Status Date / Time codeine Allergy Rash Verified 06/27/15 13:40 losartan [From Cozaar] Allergy See Verified 08/01/16 11:26 Comments lisinopril AdvReac Cough Verified 08/01/16 11:26 promethazine [From Phenergan] AdvReac Confusion Verified 02/02/18 14:46 Date of admission: 01/26/18 05:29 Primary care physician: Tawana Quintero CNP Consults: 01/26/18 14:30 Consult to Gastroenterology [CONS] Routine Consulting Provider: Gastroenterology Winter Reason for Consult: NSTEMI. Hgb 7.9 s/p right shoulder arthroscopic surgery yesterday. Concern about low Hgb Call Completed: No 01/30/18 10:57 Consult to Nephrology [CONS] Routine Consulting Provider: Kidney Winter/BOLA/ISHA/CHAGO Reason for Consult: CKD Call Completed: No 01/31/18 09:47 OT [Consult to Occupational Therapy] [CONS] Routine Comment: Evaluate, develop and implement POC Reason for Consult: Pt had recent shoulder surgery and needs therapy. Does patient have active BEDREST order?: No Is patient medically & hemodynamically stable?: Yes Patient assessed for mobility or mobilized this visit?: Yes 01/31/18 16:24 Consult to Disaster Recovery Coordinator [CONS] Routine Reason for SW Consult: Patient would like to go to ECF/rehab at discharge. OT ordererd. However, per , pateint is not appropriate for PT yet. 02/07/18 23:51 Consult to Palliative Care [CONS] Routine Comment: Consulting Provider: Palliative Care Winter Reason for Consult: Patient with ASHLEY that may need dialysis soon. Patient contemplating a palliative course vs active treatment. Call Completed: No 02/08/18 09:29 Consult to Interventional Radiology [CONS] Routine Consulting Provider: Radiology Interventional Cols Reason for Consult: Need temporary HD catheter placement Call Completed: Yes 02/08/18 13:30 Consult to Dialysis [CONS] ONCE 02/09/18 07:30 Consult to Dialysis [CONS] ONCE 02/09/18 13:12 Consult to Disaster Recovery Coordinator [CONS] Routine Reason for SW Consult: Please set up HD chair time for Cristina Reyes. 02/09/18 14:27 Consult to Physical Therapy [CONS] Routine Comment: Evaluate, develop and implement POC Reason for Consult: To assess for rehab placement at discharge; required by insurance. Patient stated [facility]. OT already seeing for shoulder, but need a full assessment from them for possible rehab too. Thank you. Does patient have active BEDREST order?: No Is patient medically & hemodynamically stable?: Yes 02/10/18 08:00 Consult to Dialysis [CONS] ONCE 02/13/18 08:45 Consult to Dialysis [CONS] ONCE 02/14/18 09:53 Consult to Interventional Radiology [CONS] Routine Consulting Provider: Radiology Interventional Cols Reason for Consult: bilateral chest tubes for Left loculated pleural effusion and right pleural effusion Call Completed: Yes 02/14/18 14:34 Consult to Pulmonology [CONS] Routine Consulting Provider: Pulm Crit Care & Sleep Winter Reason for Consult: Bilateral pleural effusion s/p right chest tube placement today. Appreciate pulmonology assistance on chest tube management. Call Completed: Yes 02/15/18 07:45 Consult to Dialysis [CONS] ONCE 02/15/18 10:40 Consult to Interventional Radiology [CONS] Routine Consulting Provider: Radiology Interventional Cols Reason for Consult: per recommendations of pulm, please aspirate left-sided loculated effusion on patient Call Completed: Yes 02/17/18 07:15 Consult to Dialysis [CONS] ONCE 02/20/18 06:00 Consult to Interventional Radiology [CONS] Routine Consulting Provider: Radiology Interventional Cols Reason for Consult: Please evaluate for placement of a Permacath on Tuesday. Thank you. Call Completed: No 02/20/18 08:00 Consult to Dialysis [CONS] ONCE 02/20/18 08:30 Consult to Dialysis [CONS] ONCE Discharging clinician: Anastacio Oscar Anticipated date of discharge: 02/21/18 - Constitutional Vitals: Temp Pulse Resp BP Pulse Ox 98.3 F 82 18 162/81 96 02/20/18 07:31 02/20/18 07:00 02/20/18 07:00 02/20/18 07:31 02/20/18 07:00 General appearance: Present: cooperative, A&O X 3, pleasant, obese, answers questions appropriately - Head Head exam: Present: atraumatic, normocephalic - Respiratory Respiratory exam: Present: prolonged expiratory phase, rhonchi, wheezes - Cardiovascular Cardiovascular exam: Present: RRR, systolic murmur (3/6 L 4th IC) - GI/Abdominal GI/Abdominal exam: Present: normal bowel sounds, soft, no peritoneal signs. Absent: distended, tenderness - Extremities Exam Extremities exam: Present: warm, radial pulses palpable and symmetrical. Absent : calf tenderness, cyanotic, pedal edema - Neurological Exam Neurological exam: Present: alert, oriented X3, no focal deficits. 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) Follow Up With: Tawana Quintero CNP [Primary Care Provider] - Pedro Cardoza CNP [Advanced Practice Nurse] - Alfred Gill MD [Partnered Physician] - - Diet and Activity Activity: as per physical therapy, increase activity as tolerated Diet: low salt diet - VTE Reasons for not Prescribing Prophylaxis: Medical contraindication (Anemia, Suspected GI Bleed) Documentation of Mechanical Device: Intermittent pneumatic compression device <Lavon Schmitt - Last Filed: 02/21/18 10:54> Date of Encounter: 02/21/18 - Discharge Diagnosis (1) Coronary artery disease Status: Chronic Qualifiers: Coronary Disease-Associated Artery/Lesion type: bypass graft [place] vs. transplanted heart: [place] heart Associated angina: without angina Qualified Code(s): I25.810 - Atherosclerosis of coronary artery bypass graft(s) without angina pectoris (2) Type 2 diabetes mellitus with diabetic nephropathy, with long-term current use of insulin Status: Chronic (3) Essential hypertension Status: Chronic (4) NSTEMI (non-ST elevated myocardial infarction) Status: Resolved (5) Anemia Status: Suspected Qualifiers: Anemia type: due to chronic kidney disease Chronic kidney disease stage: stage 4 (severe) Qualified Code(s): N18.4 - Chronic kidney disease, stage 4 ( severe); D63.1 - Anemia in chronic kidney disease; D63.1 - Anemia in chronic kidney disease (6) CKD (chronic kidney disease) stage 4, GFR 15-29 ml/min Status: Chronic (7) Acute renal failure due to tubular necrosis Status: Suspected (8) Goals of care, counseling/discussion Status: Acute (9) Cough Status: Acute (10) Pneumonia Status: Acute Qualifiers: Pneumonia type: due to unspecified organism Laterality: left Lung location: unspecified part of lung Qualified Code(s): J18.9 - Pneumonia, unspecified organism (11) Pleural effusion Status: Acute (12) Diarrhea Status: Acute Qualifiers: Diarrhea type: unspecified type Qualified Code(s): R19.7 - Diarrhea, unspecified Hospital course: Ms. Andres is a 73 year old female - Time Spent with Patient Total time spent providing and/or coordinating discharge services: Date of admission: 01/26/18 05:29 Primary care physician: Tawana Quintero CNP Consults: 01/26/18 14:30 Consult to Gastroenterology [CONS] Routine Consulting Provider: Gastroenterology Winter Reason for Consult: NSTEMI. Hgb 7.9 s/p right shoulder arthroscopic surgery yesterday. Concern about low Hgb Call Completed: No 01/30/18 10:57 Consult to Nephrology [CONS] Routine Consulting Provider: Kidney Winter/BOLA/ISHA/CHAGO Reason for Consult: CKD Call Completed: No 01/31/18 09:47 OT [Consult to Occupational Therapy] [CONS] Routine Comment: Evaluate, develop and implement POC Reason for Consult: Pt had recent shoulder surgery and needs therapy. Does patient have active BEDREST order?: No Is patient medically & hemodynamically stable?: Yes Patient assessed for mobility or mobilized this visit?: Yes 01/31/18 16:24 Consult to Disaster Recovery Coordinator [CONS] Routine Reason for SW Consult: Patient would like to go to ECF/rehab at discharge. OT ordererd. However, per , pateint is not appropriate for PT yet. 02/07/18 23:51 Consult to Palliative Care [CONS] Routine Comment: Consulting Provider: Palliative Care Winter Reason for Consult: Patient with ASHLEY that may need dialysis soon. Patient contemplating a palliative course vs active treatment. Call Completed: No 02/08/18 09:29 Consult to Interventional Radiology [CONS] Routine Consulting Provider: Radiology Interventional Cols Reason for Consult: Need temporary HD catheter placement Call Completed: Yes 02/08/18 13:30 Consult to Dialysis [CONS] ONCE 02/09/18 07:30 Consult to Dialysis [CONS] ONCE 02/09/18 13:12 Consult to Disaster Recovery Coordinator [CONS] Routine Reason for SW Consult: Please set up HD chair time for Cristina Reyes. 02/09/18 14:27 Consult to Physical Therapy [CONS] Routine Comment: Evaluate, develop and implement POC Reason for Consult: To assess for rehab placement at discharge; required by insurance. Patient stated would like [facility] at [facility]. OT already seeing for shoulder, but need a full assessment from them for possible rehab too. Thank you. Does patient have active BEDREST order?: No Is patient medically & hemodynamically stable?: Yes 02/10/18 08:00 Consult to Dialysis [CONS] ONCE 02/13/18 08:45 Consult to Dialysis [CONS] ONCE 02/14/18 09:53 Consult to Interventional Radiology [CONS] Routine Consulting Provider: Radiology Interventional Cols Reason for Consult: bilateral chest tubes for Left loculated pleural effusion and right pleural effusion Call Completed: Yes 02/14/18 14:34 Consult to Pulmonology [CONS] Routine Consulting Provider: Pulm Crit Care & Sleep Winter Reason for Consult: Bilateral pleural effusion s/p right chest tube placement today. Appreciate pulmonology assistance on chest tube management. Call Completed: Yes 02/15/18 07:45 Consult to Dialysis [CONS] ONCE 02/15/18 10:40 Consult to Interventional Radiology [CONS] Routine Consulting Provider: Radiology Interventional Cols Reason for Consult: per recommendations of pulm, please aspirate left-sided loculated effusion on patient Call Completed: Yes 02/17/18 07:15 Consult to Dialysis [CONS] ONCE 02/20/18 06:00 Consult to Interventional Radiology [CONS] Routine Consulting Provider: Radiology Interventional Cols Reason for Consult: Please evaluate for placement of a Permacath on Tuesday. Thank you. Call Completed: No 02/20/18 08:00 Consult to Dialysis [CONS] ONCE 02/20/18 08:30 Consult to Dialysis [CONS] ONCE 02/20/18 11:23 Consult to Case Management [CONS] Routine Comment: - Constitutional Vitals: Temp Pulse Resp BP Pulse Ox 98.2 F 93 18 135/51 98 02/21/18 07:00 02/21/18 07:00 02/21/18 07:00 02/21/18 07:00 02/21/18 07:00 - Attending Attestation this note will be used for her discharge 02/21/18 non-STEMI. Echocardiogram was EF of 55%. Mild hypokinesis of the right ventricle. Moderate to severe tricuspid regurgitation, severe pulmonary hypertension with an RSVP of 70-75 mmHg. Medical management for now. Aspirin, beta shannon and statin Cardiology will consider outpatient LHC. time spent 40 min I examined this patient and my medical decision-making was reviewed with the Resident Physician. I agree with the documented findings, disposition and treatment plan as described except to the extent set forth below.
--- NOTE | 2018-02-20 11:29 | Physician Discharge Referral ---
ExtendedCare Referral Info Transfer To: [facility] Provider in Charge after Transfer: PCP Institutional Level of Care: Skilled - Diagnosis (1) Coronary artery disease Priority: Primary Status: Chronic (2) Type 2 diabetes mellitus with diabetic nephropathy, with long-term current use of insulin Priority: Secondary Status: Chronic (3) Essential hypertension Priority: Secondary Status: Chronic (4) NSTEMI (non-ST elevated myocardial infarction) Priority: Secondary Status: Resolved (5) Anemia Priority: Secondary Status: Suspected (6) CKD (chronic kidney disease) stage 4, GFR 15-29 ml/min Priority: Secondary Status: Chronic (7) Acute renal failure due to tubular necrosis Priority: Secondary Status: Suspected (8) Goals of care, counseling/discussion Priority: Secondary Status: Acute (9) Cough Priority: Secondary Status: Acute (10) Pneumonia Priority: Secondary Status: Acute (11) Diarrhea Priority: Secondary Status: Acute (12) Pleural effusion Priority: Secondary Status: Acute - Transfer Medications Home Medications: Insulin NPH Hum/Reg Insulin Hm [Novolin 70-30 100 Unit/ml Vial] 12 unit SQ QPM 07/31/16 [History] Insulin NPH Hum/Reg Insulin Hm [Novolin 70-30 100 Unit/ml Vial] 22 unit SQ QAM 07/31/16 [History] Metoprolol [Lopressor] 12.5 mg PO BID 07/31/16 [History] Ranitidine HCl [Heartburn Relief] 150 mg PO BID 07/31/16 [History] Ergocalciferol (VITAMIN D2) [Vitamin D2 (50,000 UNIT)] 50,000 unit PO Q14D 08/01 [History] Rosuvastatin [Crestor] 40 mg PO HS #30 tablet 08/02/16 [Rx] Furosemide [Lasix] 20 mg PO DAILY 01/25/18 [History] Nitroglycerin [Nitrostat] 0.4 mg SL Q5M PRN 01/25/18 [History] Aspirin 81 mg PO DAILY tab.chew 02/20/18 [Rx] Allergies/Adverse Reactions: 3 Allergy/AdvReac Type Severity Reaction Status Date / Time codeine Allergy Rash Verified 06/27/15 13:40 losartan [From Cozaar] Allergy See Verified 08/01/16 11:26 Comments lisinopril AdvReac Cough Verified 08/01/16 11:26 promethazine [From Phenergan] AdvReac Confusion Verified 02/02/18 14:46 - Respiratory Orders Smoking Cessation: Smoking cessation has been advised. For more information, call the [place] Tobacco Quit Line at 6-037-VPKE-NOW. - Advance Directives Code Status: DNR-Arrest/Don't Intubate - Rehabiliation Orders Rehab Potential: Fair Rehab Orders: Evaluation for Physical Therapy, Evaluation for Occupational Therapy - Diet Orders Regular, No Added Salt (SUZIE), Cardiac CERTIFICATION: I certify that the transfer of the above named patient to an Extended Care Facility is necessary for the continuing treatment of the diagnosis listed. The above information is true and accurate reflection of patient's current condition. Confidential - Redisclosure prohibited without a patient's written consent.
[2018-02-20] MEDS ORDERED: *HR* FentaNYL (PF) 100 MCG/2 ML VIAL IVP ONE (13:11)
[2018-02-20] MEDS ORDERED: *HR* Midazolam HCl 2 MG/2 ML VIAL IVP ONE (13:11)
[2018-02-20] MEDS ORDERED: CeFAZolin Premix DUPLEX 2,000 MG/50 ML BAG IVPB ONE ×2 (13:11→15:00)
[2018-02-20] MEDS ORDERED: ceFAZolin 2,000 MG in Water for inj. (sterile) 20 ML IVP ONE (13:26)
[2018-02-20] MEDS ORDERED: Heparin 1,000 UNITS/500 mL 500 ML ONE (13:29)
[2018-02-20] MEDS ORDERED: 0.9 % Sodium Chloride 500 ML ONE (13:34)
[2018-02-20] MEDS ORDERED: *HR* Heparin 5,000 UNIT/ML VIAL ONE (14:08)
--- NOTE | 2018-02-20 14:13 | IR Procedure Note ---
Date of procedure: 02/20/18 Consent Obtained: Verbal consent Timeout: Correct patient and procedure verified, Correct site verified, Time out performed, Skin prep completed Local anesthetic: Lidocaine 1% Indications: Renal failure Procedure Performed: Tunneled HD catheter placement Was there an reference library assistant present: No Site/Technique: Right IJ Tunneled HD Catheter Placed Results/Findings: Catheter in good position Estimated blood loss (cc): 3 Complications: None; Tolerated procedure well Post Procedure Treatment Plan: May use HD catheter now Specimen: None
[2018-02-20 15:03] LABS: Adenovirus F 40/41 PCR Not detected (Not detect); Astrovirus PCR Not detected (Not detect); Campylobacter by PCR Not detected (Not detect); Cryptosporidium by PCR Not detected (Not detect); Cyclospora cayetanensis PCR Not detected (Not detect); E. coli O157 by PCR Not detected (Not detect); Entamoeba histolytica PCR Not detected (Not detect); Enteroaggregative E.coli(EAEC) Not detected (Not detect); Enteropathogenic E.coli(EPEC) Not detected (Not detect); Enterotoxigenic E.coli (ETEC) Not detected (Not detect); Giardia lamblia PCR Not detected (Not detect); Norovirus GI/GII PCR Not detected (Not detect); Plesiomonas shigelloides PCR Not detected (Not detect); Rotavirus A PCR Not detected (Not detect); Salmonella PCR Not detected (Not detect); Sapovirus PCR Not detected (Not detect); Shig/EnteroinvasiveE coli EIEC Not detected (Not detect); Shigalike tox-prod E coli STEC Not detected (Not detect); Vibrio PCR Not detected (Not detect); Vibrio cholerae PCR Not detected (Not detect); Yersinia enterocolitica PCR Not detected (Not detect)
[2018-02-21 05:53] LABS: Basophils # 0.1 K/mcL (0.0-0.2); Basophils % 0.7 %; Eosinophils # 0.4 K/mcL (0.0-0.6); Eosinophils % 5.2 %; Hematocrit 27.9 % (35.3-44.9); Hemoglobin 8.4 g/dL (11.5-15.4); Immature Granulocytes % 1.5 % (0-4); Lymphocytes # 0.7 K/mcL (0.6-4.6); Mean Corpuscular HGB Conc 30.1 g/dL (31.6-35.5); Mean Corpuscular Hemoglobin 29.5 pg (28.0-33.3); Mean Corpuscular Volume 97.9 fL (83.0-100.0); Mean Platelet Volume 11.7 fL (9.4-12.4); Monocytes # 0.9 K/mcL (0.0-1.3); Monocytes % 13.1 %; Neutrophils # 4.6 K/mcL (1.6-8.9); Platelet Count 193 K/mcL (140-400); Red Blood Count 2.85 M/mcL (3.82-4.97); Red Cell Distribution Width 13.9 % (11.5-14.5); Segmented Neutrophils % 68.5 %
[2018-02-21 06:12] LABS: Calcium 8.4 mg/dL (8.6-10.3); Potassium 4.9 mEq/L (3.5-5.1)
[2018-02-21] MEDS: *HR* Heparin 5,000 UNIT/ML VIAL SQ SCH (06:16)
[2018-02-21 07:43] VITALS: BP 135/51
[2018-02-21] MEDS: Ondansetron 4 MG/2 ML VIAL IVP PRN (08:21)
[2018-02-21] MEDS: Benzonatate 100 MG CAPSULE PO SCH (08:25)
[2018-02-21] MEDS: Cholecalciferol (D-3) 1,000 UNIT TABLET PO SCH (08:26)
[2018-02-21] MEDS: Famotidine 20 MG TABLET PO SCH (08:26)
[2018-02-21] MEDS: Aspirin 81 MG TAB.CHEW PO SCH (08:26)
[2018-02-21] MEDS: Insulin LISPRO 300 UNITS/3 ML VIAL SQ SCH ×2 (08:35→11:44)
[2018-02-21] MEDS: Insulin NPH/REG 70/30 100 UNIT/ML (x5UNIT) SQ SCH (08:42)
--- NOTE | 2018-02-21 16:32 | Event Note ---
Date of Encounter: 02/21/18 Time of Encounter: 10:15 Nephro Chart Review No need for extra HD today. Will plan for her next HD to follow her routine M/W/ F, and so will arrange for inpt HD tomorrow if she remains hospitalized.
== END 2018-02-21 16:49 | DRG 280 ==
LOC: 2NENU 23:26 → EMEROO 23:26 → 2NENU 01-26 04:10 → SUATTDRO 01-26 05:29
PROVIDERS: ADMIT Internal Medicine Nephrology; ATTEND Hospitalist
PROC: IRPERMA (2018-02-20 12:00)

== ENCOUNTER 2018-03-03 05:51 | Observation (INO) ==
[2018-03-03] MEDS ORDERED: Insulin Regular, Human 100 UNIT/ML IV ONE (06:10)
[2018-03-03] MEDS ORDERED: *HR* Dextrose 50 % in Water (Syg) 50 ML SYRINGE IVP PRN ×2 (06:21→11:55)
[2018-03-03] MEDS ORDERED: Insulin Human Regular 100 UNIT in 0.9 % Sodium Chloride 100 ML IVC SCH ×2 (06:30→14:00)
--- NOTE | 2018-03-03 06:30 | Emergency Department Note ---
Disposition Clinical Impression: Diabetic ketosis Nausea and vomiting Qualifiers: Vomiting type: unspecified Vomiting Intractability: non-intractable Qualified Code(s): R11.2 - Nausea with vomiting, unspecified Disposition: Admitted As Inpatient Condition: Good General Adult HPI - General Chief complaint: ED Nausea/Vomiting/Diarrhea Stated complaint: Hyperglycemia/Vomiting Time Seen by Provider: 03/03/18 05:52 Source: patient, EMS Limitations: no limitations - History of Present Illness Pain Scale: 0 - Related Data Home Medications Medication Instructions Recorded Confirmed Metoprolol [Lopressor] 12.5 mg PO BID 07/31/16 03/03/18 Ranitidine HCl [Heartburn Relief] 150 mg PO BID 07/31/16 03/03/18 Ergocalciferol (VITAMIN D2) 50,000 unit PO Q14D 08/01/16 03/03/18 [Vitamin D2 (50,000 UNIT)] Nitroglycerin [Nitrostat] 0.4 mg SL Q5M PRN 01/25/18 03/03/18 Acetaminophen [Tylenol] 650 mg PO Q6HR PRN 03/03/18 03/03/18 Benzonatate [Tessalon] 100 mg PO TID PRN 03/03/18 03/03/18 Dronabinol [Marinol] 2.5 mg PO BIDLS 03/03/18 03/03/18 GuaiFENesin/Dextromethorphan 10 ml PO Q6HR PRN 03/03/18 03/03/18 [Robitussin/Dm] Sertraline [Zoloft] 25 mg PO HS 03/03/18 03/03/18 Previous Rx's Medication Instructions Recorded Rosuvastatin [Crestor] 40 mg PO HS #30 tablet 08/02/16 Aspirin 81 mg PO DAILY tab.chew 02/20/18 Ondansetron ODT [Zofran ODT] 4 mg PO Q6HR 30 Days #6 tab.rapdis 02/21/18 Insulin LISPRO [HumaLOG] 0 units SQ HS vial 03/06/18 Insulin LISPRO [HumaLOG] 0 units SQ TIDAC vial 03/06/18 Allergies Allergy/AdvReac Type Severity Reaction Status Date / Time codeine Allergy Rash Verified 03/03/18 07:01 losartan [From Cozaar] Allergy See Verified 03/03/18 07:01 Comments lisinopril AdvReac Cough Verified 03/03/18 07:01 promethazine [From Phenergan] AdvReac Confusion Verified 03/03/18 07:01 Past Medical History - Past Medical History Medical history: Reports: coronary artery disease, diabetes, GERD, hyperlipidemia, hypertension, myocardial infarction, renal disease Surgical history: Reports: coronary bypass (CABG), orthopedic, other (Shoulder scope), other (EGD 2010, colonoscopy greater than 10 year ago) Psychiatric history: Reports: no psych history - Social History Smoking Status: Never smoker Smokeless Tobacco Status: No Alcohol use: Reports: none Drug use: Reports: none Physical Exam - General Limitations: no limitations General appearance: alert Course Vital Signs Temperature 98.2 F 03/03/18 05:55 Pulse Rate 95 03/03/18 05:55 Respiratory Rate 20 03/03/18 05:55 Blood Pressure 134/89 03/03/18 05:55 O2 Sat by Pulse Oximetry 90 03/03/18 05:55 Temperature 98.9 F 03/06/18 14:24 Pulse Rate 92 03/06/18 14:24 Respiratory Rate 16 03/06/18 14:24 Blood Pressure 136/64 03/06/18 14:24 O2 Sat by Pulse Oximetry 97 03/06/18 14:24 Oxygen Delivery Oxygen Delivery Room Air Medical Decision Making - Lab Data Result diagrams: 03/06/18 03:45 03/06/18 03:45 Lab Results 03/03/18 03/03/18 03/03/18 Range/Units 06:01 06:03 06:20 VBG pH (7.32-7.42) pH Units VBG pCO2 (41-51) mmHg VBG pO2 (25-50) mmHg VBG HCO3 (21-27) mEq/L Sodium (136-145) mEq/L Potassium (3.5-5.1) mEq/L Chloride (98-107) mEq/L Carbon Dioxide (23-29) mEq/L BUN (8-23) mg/dL Creatinine (0.60-1.20) mg/dL Est GFR ( Amer) (> 60) Est GFR (Non-Af Amer) (> 60) BUN/Creatinine Ratio (6-26) Glucose (70-105) mg/dL POC Glucose 473 H* 526 H* (70-99) mg/dL Calculated Osmolality (280-300) Lactic Acid (0.5-2.2) mmol/L Calcium (8.6-10.3) mg/dL Magnesium (1.6-2.6) mg/dL Troponin I (< 0.04) ng/mL Lipase (11-82) Units/L Beta-Hydroxybutyric Acd > 2.00 H (0.02-0.27) mmol/L 03/03/18 03/03/18 03/03/18 Range/Units 06:20 06:38 08:02 VBG pH 7.38 (7.32-7.42) pH Units VBG pCO2 30 L (41-51) mmHg VBG pO2 120 H (25-50) mmHg VBG HCO3 18 L (21-27) mEq/L Sodium 134 L (136-145) mEq/L Potassium 4.6 D (3.5-5.1) mEq/L Chloride 95 L (98-107) mEq/L Carbon Dioxide 14 L (23-29) mEq/L BUN 20 (8-23) mg/dL Creatinine 3.61 H (0.60-1.20) mg/dL Est GFR ( Amer) 15 L (> 60) Est GFR (Non-Af Amer) 12 L (> 60) BUN/Creatinine Ratio 6 (6-26) Glucose 521 H* (70-105) mg/dL POC Glucose (70-99) mg/dL Calculated Osmolality 304 H (280-300) Lactic Acid 2.6 H (0.5-2.2) mmol/L Calcium 8.2 L (8.6-10.3) mg/dL Magnesium 1.5 L (1.6-2.6) mg/dL Troponin I 0.03 (< 0.04) ng/mL Lipase 14 (11-82) Units/L Beta-Hydroxybutyric Acd (0.02-0.27) mmol/L 03/03/18 03/03/18 Range/Units 08:07 08:09 VBG pH (7.32-7.42) pH Units VBG pCO2 (41-51) mmHg VBG pO2 (25-50) mmHg VBG HCO3 (21-27) mEq/L Sodium (136-145) mEq/L Potassium (3.5-5.1) mEq/L Chloride (98-107) mEq/L Carbon Dioxide (23-29) mEq/L BUN (8-23) mg/dL Creatinine (0.60-1.20) mg/dL Est GFR ( Amer) (> 60) Est GFR (Non-Af Amer) (> 60) BUN/Creatinine Ratio (6-26) Glucose (70-105) mg/dL POC Glucose 482 H* 498 H* (70-99) mg/dL Calculated Osmolality (280-300) Lactic Acid (0.5-2.2) mmol/L Calcium (8.6-10.3) mg/dL Magnesium (1.6-2.6) mg/dL Troponin I (< 0.04) ng/mL Lipase (11-82) Units/L Beta-Hydroxybutyric Acd (0.02-0.27) mmol/L Attestation Statement - Attestation Attestation: For this encounter, I have reviewed the [employer] MANAGER or PA documentation, treatment plan, and medical decision making; and I have had face to face time with this patient. This patient was seen by myself earlier as a sign O. Ultimately was ruled out for hyperglycemia and had improvement of blood glucose. I would at this point explore this further as the patient has hyperglycemia as well as now vomiting. The glucose seems to be rapidly increasing. The patient has significant vomiting and pallor. I would check an EKG, cardiac biomarkers, repeat labs to assure nothing metabolically has worsened over the past few hours , CT scan of the abdomen to rule out intra-abdominal pathology which could be sparking a reactive hyperglycemia and additionally we will rule out CA as a possible cause of persistent hyperglycemia. Patient will need admission with initiation of insulin infusion. I spent greater than 35 minutes of critical care time resuscitating this acutely ill patient suffering from hyperglycemia requiring insulin infusion as well as advanced imaging. This was excluding billable procedures.
[2018-03-03] MEDS ORDERED: Ondansetron 8 MG in 0.9 % Sodium Chloride 50 ML IVPB ONE (06:31)
--- NOTE | 2018-03-03 06:31 | Emergency Department Note ---
Disposition Clinical Impression: Diabetic ketosis Nausea and vomiting Qualifiers: Vomiting type: unspecified Vomiting Intractability: non-intractable Qualified Code(s): R11.2 - Nausea with vomiting, unspecified Disposition: Admitted As Inpatient Condition: Fair Referrals: Tawana Quintero SPINNING LATHE OPERATOR [Primary Care Provider] - Time of Disposition: 07:40 General Adult HPI - General Chief complaint: ED Nausea/Vomiting/Diarrhea Stated complaint: Hyperglycemia/Vomiting Time Seen by Provider: 03/03/18 05:52 Source: patient, EMS Mode of arrival: EMS Limitations: no limitations Nursing Notes Reviewed: Yes Vital Signs Reviewed: Yes - History of Present Illness Pt Subjective Complaint: nausea and vomiting Onset (ago): hour(s) Location: other (no pain, just nausea and vomiting) Pain Scale: 0 Consistency: constant (nausea) Improves with: nothing Worsens with: nothing Associated symptoms: Reports: denies other symptoms. Denies: confusion, chest pain, cough, diaphoresis, fever/chills, headaches, loss of appetite, malaise, rash, seizure, shortness of breath, syncope, weakness Treatments Prior to Arrival: other (patient was d/c'd from here about 3 hours ago after eval and treatment for hyperglycemia ) - Related Data Home Medications Medication Instructions Recorded Confirmed Insulin NPH Hum/Reg Insulin Hm 12 unit SQ QPM 07/31/16 01/26/18 [Novolin 70-30 100 Unit/ml Vial] Insulin NPH Hum/Reg Insulin Hm 22 unit SQ QAM 07/31/16 01/26/18 [Novolin 70-30 100 Unit/ml Vial] Metoprolol [Lopressor] 12.5 mg PO BID 07/31/16 01/26/18 Ranitidine HCl [Heartburn Relief] 150 mg PO BID 07/31/16 01/26/18 Ergocalciferol (VITAMIN D2) 50,000 unit PO Q14D 08/01/16 01/26/18 [Vitamin D2 (50,000 UNIT)] Furosemide [Lasix] 20 mg PO DAILY 01/25/18 01/26/18 Nitroglycerin [Nitrostat] 0.4 mg SL Q5M PRN 01/25/18 01/26/18 Acetaminophen [Tylenol] 650 mg PO Q6HR PRN 03/03/18 03/03/18 Amoxicillin/Clavulanate [Augmentin] 875 mg PO BIDWM 03/03/18 03/03/18 Atorvastatin Calcium 80 mg PO HS 03/03/18 03/03/18 Benzonatate [Tessalon] 100 mg PO TID PRN 03/03/18 03/03/18 Dronabinol [Marinol] 2.5 mg PO BIDLS 03/03/18 03/03/18 GuaiFENesin/Dextromethorphan 10 ml PO Q6HR PRN 03/03/18 03/03/18 [Robitussin/DM] Guaifenesin [Mucinex] 600 mg PO BID 03/03/18 03/03/18 Levofloxacin [Levaquin] 500 mg PO Q48H 03/03/18 03/03/18 Sertraline [Zoloft] 25 mg PO HS 03/03/18 03/03/18 Previous Rx's Medication Instructions Recorded Rosuvastatin [Crestor] 40 mg PO HS #30 tablet 08/02/16 Aspirin 81 mg PO DAILY tab.chew 02/20/18 Ondansetron ODT [Zofran ODT] 4 mg PO Q6HR 30 Days #6 tab.rapdis 02/21/18 Allergies Allergy/AdvReac Type Severity Reaction Status Date / Time codeine Allergy Rash Verified 03/03/18 07:01 losartan [From Cozaar] Allergy See Verified 03/03/18 07:01 Comments lisinopril AdvReac Cough Verified 03/03/18 07:01 promethazine [From Phenergan] AdvReac Confusion Verified 03/03/18 07:01 Past Medical History - Past Medical History Medical history: Reports: coronary artery disease, diabetes, GERD, hyperlipidemia, hypertension, myocardial infarction, renal disease Surgical history: Reports: coronary bypass (CABG), orthopedic, other (Shoulder scope), other (EGD 2010, colonoscopy greater than 10 year ago) Psychiatric history: Reports: no psych history - Social History Smoking Status: Never smoker Smokeless Tobacco Status: No Alcohol use: Reports: none Drug use: Reports: none Physical Exam - General Limitations: no limitations General appearance: alert Course Course Narrative: Patient presents by squad for reevaluation of elevated blood sugar. She now also has nausea and vomiting. She was seen here last night for hypoglycemia and was given 10 units of insulin along with a liter bolus of normal saline. assisted reports that they are unable to give her any insulin until after 8: 00, because they have to wait for a doctor order. This was their reasoning for sending the patient back. She does however have nausea and vomiting, now. This is most likely secondary to the hyperglycemia, but she has had recent pneumonia, recent hospitalization for an NSTEMI, and recent shoulder surgery. Labs, fluids and an insulin drip have been ordered. Case was discussed with Dr. Olivares. He recommends CT of the abdomen and pelvis , repeating all of her labs and including a lipase and lactate. Repeat chest x- ray was also recommended. EKG was added as well. Patient's EKG appears to be slightly change compared to last night and that she has [address] elevation in V1 with [address] depression in V5 and V6. No other changes noted. It is a normal sinus rhythm with left axis deviation and LVH. Patient was given an aspirin and Zofran. Patient's nausea is better. She has not vomited for an hour. Repeat Accu-Chek is still elevated. However, she has not yet received her insulin drip for some reason. CT of the abdomen and pelvis was reviewed by the hospitalists while the patient was still in the radiology department. He reports that she appears to have no acute abnormality in the abdomen or pelvis. Chest x-ray was read by the radiologist as stable, no changes compared to previous. Pleural effusion, unchanged. Labs show a worsening CO2 at 14. Troponin is 0.05. This is better than her usual. She has chronic kidney disease and has a troponin leak often. She has anemia of chronic disease. H&H are stable compared to previous. Ketones greater than two, unchanged. Lactate still pending. Patient was seen by Dr. Moody. He has accepted her for admission. Case was discussed with the current attending, Dr. Acuña. He has had [id number] time with the patient and agrees with the assessment and plan to admit the patient. - Consultations Consultation #1: Case discussed with Dr. Moody. He has accepted the patient. Time: 07:30 Consultation #2: Dr. Shen paged for consult Time: 08:20 Vital Signs Temperature 98.2 F 03/03/18 05:55 Pulse Rate 95 03/03/18 05:55 Respiratory Rate 20 03/03/18 05:55 Blood Pressure 134/89 03/03/18 05:55 O2 Sat by Pulse Oximetry 0 03/03/18 05:55 Temperature 98.2 F 03/03/18 05:55 Pulse Rate 95 03/03/18 05:55 Respiratory Rate 20 03/03/18 05:55 Blood Pressure 134/89 03/03/18 05:55 O2 Sat by Pulse Oximetry 0 03/03/18 05:55 Oxygen Delivery Oxygen Delivery Room Air Medical Decision Making - Medical Records Medical records reviewed: Yes I reviewed the patient's medical records. - Lab Data Lab results reviewed: Yes I reviewed the patient's lab results. Lab results narrative: Laboratory Last Values VBG pH 7.38 pH Units (7.32-7.42) 03/03/18 06:38 VBG pCO2 30 mmHg (41-51) L 03/03/18 06:38 VBG pO2 120 mmHg (25-50) H 03/03/18 06:38 VBG HCO3 18 mEq/L (21-27) L 03/03/18 06:38 Sodium 134 mEq/L (136-145) L 03/03/18 06:20 Potassium 4.6 mEq/L (3.5-5.1) 03/03/18 06:20 Chloride 95 mEq/L (98-107) L 03/03/18 06:20 Carbon Dioxide 14 mEq/L (23-29) L 03/03/18 06:20 BUN 20 mg/dL (8-23) 03/03/18 06:20 Creatinine 3.61 mg/dL (0.60-1.20) H 03/03/18 06:20 Est GFR ( Amer) 15 (> 60) L 03/03/18 06:20 Est GFR (Non-Af Amer) 12 (> 60) L 03/03/18 06:20 BUN/Creatinine Ratio 6 (6-26) 03/03/18 06:20 Glucose 521 mg/dL (70-105) H* 03/03/18 06:20 POC Glucose 526 mg/dL (70-99) H* 03/03/18 06:03 Calculated Osmolality 304 (280-300) H 03/03/18 06:20 Calcium 8.2 mg/dL (8.6-10.3) L 03/03/18 06:20 Magnesium 1.5 mg/dL (1.6-2.6) L 03/03/18 06:20 Troponin I 0.03 ng/mL (< 0.04) 03/03/18 06:20 Lipase 14 Units/L (11-82) 03/03/18 06:20 Beta-Hydroxybutyric Acd > 2.00 mmol/L (0.02-0.27) H 03/03/18 06:20 Lab Results 03/03/18 03/03/18 Range/Units 06:01 06:03 POC Glucose 473 H* 526 H* (70-99) mg/dL - Radiology Data Radiology results reviewed: Yes I reviewed the patient's radiology results. Abdomen/Pelvis CT 03/03/18 06:21 IMPRESSION: 1. No acute intra-abdominal or intrapelvic process is identified. Specifically, no evidence of obstructive uropathy. 2. Moderate right-sided pleural effusion and small left-sided pleural effusion are seen as on previous PET-CT images from February 2017. The etiology is uncertain. There is associated bibasilar atelectasis as on the previous exam. 3. Atherosclerotic vascular calcifications noted. D/ / Patric Cooper MD / Patric Cooper MD Interpreting Provider: Patric Cooper MD Chest X-Ray 03/03/18 06:21 IMPRESSION: Stable chest. D/ / Patric Cooper MD / Patric Cooper MD Interpreting Provider: Patric Cooper MD
[2018-03-03 06:40] LABS: VBG HCO3 18 mEq/L (21-27); VBG PCO2 30 mmHg (41-51); VBG PH 7.38 pH Units (7.32-7.42); VBG PO2 120 mmHg (25-50)
[2018-03-03] MEDS: 0.9 % Sodium Chloride 250 ML IVC SCH ×2 (06:51→13:51)
[2018-03-03] MEDS: 0.9 % Sodium Chloride 1,000 ML IVC SCH ×12 (06:52→14:01)
[2018-03-03 07:17] LABS: Troponin I 0.03 ng/mL (< 0.04)
[2018-03-03 07:26] LABS: Calcium 8.2 mg/dL (8.6-10.3); Magnesium 1.5 mg/dL (1.6-2.6); Potassium 4.6 mEq/L (3.5-5.1)
--- NOTE | 2018-03-03 08:30 | Emergency Department Note ---
Disposition Clinical Impression: Diabetic ketosis Nausea and vomiting Qualifiers: Vomiting type: unspecified Vomiting Intractability: non-intractable Qualified Code(s): R11.2 - Nausea with vomiting, unspecified Disposition: Admitted As Inpatient Condition: Fair General Adult HPI - General Chief complaint: ED Nausea/Vomiting/Diarrhea Stated complaint: Hyperglycemia/Vomiting Time Seen by Provider: 03/03/18 05:52 Source: patient, EMS Mode of arrival: EMS Limitations: no limitations - History of Present Illness Location: other (no pain, just nausea and vomiting) Pain Scale: 0 Improves with: nothing Worsens with: nothing Associated symptoms: Reports: denies other symptoms. Denies: confusion, chest pain, cough, diaphoresis, fever/chills, headaches, loss of appetite, malaise, rash, seizure, shortness of breath, syncope, weakness Treatments Prior to Arrival: other (patient was d/c'd from here about 3 hours ago after eval and treatment for hyperglycemia ) - Related Data Home Medications Medication Instructions Recorded Confirmed Insulin NPH Hum/Reg Insulin Hm 12 unit SQ QPM 07/31/16 03/03/18 [Novolin 70-30 100 Unit/ml Vial] Insulin NPH Hum/Reg Insulin Hm 22 unit SQ QAM 07/31/16 03/03/18 [Novolin 70-30 100 Unit/ml Vial] Metoprolol [Lopressor] 12.5 mg PO BID 07/31/16 03/03/18 Ranitidine HCl [Heartburn Relief] 150 mg PO BID 07/31/16 03/03/18 Ergocalciferol (VITAMIN D2) 50,000 unit PO Q14D 08/01/16 03/03/18 [Vitamin D2 (50,000 UNIT)] Furosemide [Lasix] 20 mg PO DAILY 01/25/18 03/03/18 Nitroglycerin [Nitrostat] 0.4 mg SL Q5M PRN 01/25/18 03/03/18 Acetaminophen [Tylenol] 650 mg PO Q6HR PRN 03/03/18 03/03/18 Amoxicillin/Clavulanate [Augmentin] 875 mg PO BIDWM 03/03/18 03/03/18 Atorvastatin Calcium 80 mg PO HS 03/03/18 03/03/18 Benzonatate [Tessalon] 100 mg PO TID PRN 03/03/18 03/03/18 Dronabinol [Marinol] 2.5 mg PO BIDLS 03/03/18 03/03/18 GuaiFENesin/Dextromethorphan 10 ml PO Q6HR PRN 03/03/18 03/03/18 [Robitussin/DM] Guaifenesin [Mucinex] 600 mg PO BID 03/03/18 03/03/18 Levofloxacin [Levaquin] 500 mg PO Q48H 03/03/18 03/03/18 Sertraline [Zoloft] 25 mg PO HS 03/03/18 03/03/18 Previous Rx's Medication Instructions Recorded Rosuvastatin [Crestor] 40 mg PO HS #30 tablet 08/02/16 Aspirin 81 mg PO DAILY tab.chew 02/20/18 Ondansetron ODT [Zofran ODT] 4 mg PO Q6HR 30 Days #6 tab.rapdis 02/21/18 Allergies Allergy/AdvReac Type Severity Reaction Status Date / Time codeine Allergy Rash Verified 03/03/18 07:01 losartan [From Cozaar] Allergy See Verified 03/03/18 07:01 Comments lisinopril AdvReac Cough Verified 03/03/18 07:01 promethazine [From Phenergan] AdvReac Confusion Verified 03/03/18 07:01 Past Medical History - Past Medical History Medical history: Reports: coronary artery disease, diabetes, GERD, hyperlipidemia, hypertension, myocardial infarction, renal disease Surgical history: Reports: coronary bypass (CABG), orthopedic, other (Shoulder scope), other (EGD 2010, colonoscopy greater than 10 year ago) Psychiatric history: Reports: no psych history - Social History Smoking Status: Never smoker Smokeless Tobacco Status: No Alcohol use: Reports: none Drug use: Reports: none Physical Exam - General Limitations: no limitations General appearance: alert Course Vital Signs Temperature 98.2 F 03/03/18 05:55 Pulse Rate 95 03/03/18 05:55 Respiratory Rate 20 03/03/18 05:55 Blood Pressure 134/89 03/03/18 05:55 O2 Sat by Pulse Oximetry 90 03/03/18 05:55 Temperature 98.2 F 03/03/18 05:55 Pulse Rate 89 03/03/18 07:11 Respiratory Rate 22 03/03/18 07:11 Blood Pressure 136/41 03/03/18 07:11 O2 Sat by Pulse Oximetry 99 03/03/18 07:11 Oxygen Delivery Oxygen Delivery Room Air Medical Decision Making - Lab Data Result diagrams: 03/03/18 06:20 Lab Results 03/03/18 03/03/18 03/03/18 Range/Units 06:01 06:03 06:20 VBG pH (7.32-7.42) pH Units VBG pCO2 (41-51) mmHg VBG pO2 (25-50) mmHg VBG HCO3 (21-27) mEq/L Sodium (136-145) mEq/L Potassium (3.5-5.1) mEq/L Chloride (98-107) mEq/L Carbon Dioxide (23-29) mEq/L BUN (8-23) mg/dL Creatinine (0.60-1.20) mg/dL Est GFR ( Amer) (> 60) Est GFR (Non-Af Amer) (> 60) BUN/Creatinine Ratio (6-26) Glucose (70-105) mg/dL POC Glucose 473 H* 526 H* (70-99) mg/dL Calculated Osmolality (280-300) Lactic Acid (0.5-2.2) mmol/L Calcium (8.6-10.3) mg/dL Magnesium (1.6-2.6) mg/dL Troponin I (< 0.04) ng/mL Lipase (11-82) Units/L Beta-Hydroxybutyric Acd > 2.00 H (0.02-0.27) mmol/L 03/03/18 03/03/18 03/03/18 Range/Units 06:20 06:38 08:02 VBG pH 7.38 (7.32-7.42) pH Units VBG pCO2 30 L (41-51) mmHg VBG pO2 120 H (25-50) mmHg VBG HCO3 18 L (21-27) mEq/L Sodium 134 L (136-145) mEq/L Potassium 4.6 (3.5-5.1) mEq/L Chloride 95 L (98-107) mEq/L Carbon Dioxide 14 L (23-29) mEq/L BUN 20 (8-23) mg/dL Creatinine 3.61 H (0.60-1.20) mg/dL Est GFR ( Amer) 15 L (> 60) Est GFR (Non-Af Amer) 12 L (> 60) BUN/Creatinine Ratio 6 (6-26) Glucose 521 H* (70-105) mg/dL POC Glucose (70-99) mg/dL Calculated Osmolality 304 H (280-300) Lactic Acid 2.6 H (0.5-2.2) mmol/L Calcium 8.2 L (8.6-10.3) mg/dL Magnesium 1.5 L (1.6-2.6) mg/dL Troponin I 0.03 (< 0.04) ng/mL Lipase 14 (11-82) Units/L Beta-Hydroxybutyric Acd (0.02-0.27) mmol/L Attestation Statement - Attestation Attestation: I examined this patient and my medical decision-making was reviewed with the TOOL REPAIRER BENCH/PA/Advanced Practice Nurse/Resident Physician. I agree with the documented findings, disposition and treatment plan as described except to the extent set forth below. I did see the patient spoke with her and examined her. I did review her record from yesterday. She is admitted to the hospital, insulin drip, I did speak with the hospitalist, on my exam she has minimal generalized abdominal pain but no pulsatile abdominal mass. CT does not reveal an acute surgical process. The patient does have chronic anemia. Hyperglycemia and a low serum bicarbonate level but VBG shows a pH to be 7.38. Does have ischemic EKG changes and cardiology will be consulted. [id number]
--- NOTE | 2018-03-03 10:07 | Pulmonology History & Physical ---
<Young Vick - Last Filed: 03/03/18 16:23> Date of Encounter: 03/03/18 Time of Encounter: 09:45 Assessment and Plan (1) DKA (diabetic ketoacidoses) Current visit: Yes Status: Acute Diabetic ketoacidosis The patient presents with positive ketones, elevated anion gap of 26, glucose 521 Symptoms consistent with DKA including Nausea and Vomiting Admits to uncontrolled elevated blood glucose at home since prior admission Started the patient on insulin drip, gave 3L NS bolus, monitored q4h BMP Gap has now closed, patient is feeling better than she was I will start basal and SSI Qualifiers: Diabetes mellitus type: type 1 Diabetes mellitus complication detail: without coma Qualified Code(s): E10.10 - Type 1 diabetes mellitus with ketoacidosis without coma (2) End stage kidney disease Current visit: Yes Status: Acute End-stage renal disease on HD MWF Consult to Nephrology for management (3) Nausea and vomiting Current visit: Yes Status: Acute Nausea and vomiting secondary to DKA Continue treatment with fluids, insulin Zofran PRN for nausea Qualifiers: Vomiting type: unspecified Vomiting Intractability: non-intractable Qualified Code(s): R11.2 - Nausea with vomiting, unspecified (4) Coronary artery disease Current visit: Yes Status: Chronic CAD, hx of NSTEMI about one month ago TTE 01/27/18 shows LVEF 55%, severe pulmonary hypertension Declined LHC on prior visit, still remains unsure of willingness for LHC Treated with ASA, Crestor, lopressor. Allergy to HEMANTH and ARB Cardiology is consulted for management Qualifiers: Coronary Disease-Associated Artery/Lesion type: bypass graft [place] vs. transplanted heart: [place] heart Associated angina: without angina Qualified Code(s): I25.810 - Atherosclerosis of coronary artery bypass graft(s) without angina pectoris (5) Hyperlipidemia Current visit: No Status: Chronic We will continue crestor Qualifiers: Hyperlipidemia type: mixed hyperlipidemia Qualified Code(s): E78.2 - Mixed hyperlipidemia (6) DVT prophylaxis Current visit: No Status: Acute SQ Heparin History of Present Illness Chief complaint: Nausea HPI: Ms. Andres is a 73 year old female with a recent pMHx of pneumonia, NSTEMI hospitalization, shoulder surgery, CKD stage IV. She has had 3 stents and a triple-vessel CABG. Ms. Andres is a re-admission after a month-long stay at [facility] for post shoulder arthroscopy manipulation with a complication of NSTEMI. During her previous admission, she developed pneumonia, pleural effusions, ASHLEY, and was started on hemodialysis MWF. Once discharged on 02/20, [facility]. On 03/03 she presented to the ED for severe nausea and vomiting, and she was found to be hypoglycemic. She was given 10 units of insulin with a liter bolus of normal saline and discharged back to the jail. However, jail was unable to give her insulin before 8:00 am without a doctors order, so she was sent back to the ED on the morning of 03/03. She presented again with Nausea & vomiting, and was admitted to the hospital for workup of DKA. She denies other symptoms, admitting only to some abdominal pain which feels like gas to her. She otherwise says that she is starting to feel better. On review of imaging done by ED, CT of abdomen showed no abnormalities. CXR showed pleural effusion, unchanged from previous imaging on 03/02 and PET-CT images from February 2017, and bibasilar atelectasis. Significantly, the patient is an ESRD patient with HD MWF. Past Med Surg Social Fam HX - Past Medical History Medical history: coronary artery disease, diabetes, GERD, hyperlipidemia, hypertension, myocardial infarction, renal disease Psychiatric history: no psych history - Past Surgical History Surgical History: coronary bypass (CABG), orthopedic, other (Shoulder scope), other (EGD 2010, colonoscopy greater than 10 year ago) - Social History Smoking Status: Never smoker Smokeless Tobacco Status: No Alcohol use: none Drug use: none - Family History Father Living Status: Hx Family Cardiac Disorders: Yes (CAD, [place]) Mother Living Status: Hx Family Cardiac Disorders: Yes (CAD) Hx Family Endocrine Disorder: Yes (DMII, kidney problems) Medications and Allergies Insulin NPH Hum/Reg Insulin Hm [Novolin 70-30 100 Unit/ml Vial] 12 unit SQ QPM 07/31/16 [History] Insulin NPH Hum/Reg Insulin Hm [Novolin 70-30 100 Unit/ml Vial] 22 unit SQ QAM 07/31/16 [History] Metoprolol [Lopressor] 12.5 mg PO BID 07/31/16 [History] Ranitidine HCl [Heartburn Relief] 150 mg PO BID 07/31/16 [History] Ergocalciferol (VITAMIN D2) [Vitamin D2 (50,000 UNIT)] 50,000 unit PO Q14D 08/01 [History] Rosuvastatin [Crestor] 40 mg PO HS #30 tablet 08/02/16 [Rx] Furosemide [Lasix] 20 mg PO DAILY 01/25/18 [History] Nitroglycerin [Nitrostat] 0.4 mg SL Q5M PRN 01/25/18 [History] Aspirin 81 mg PO DAILY tab.chew 02/20/18 [Rx] Ondansetron ODT [Zofran ODT] 4 mg PO Q6HR 30 Days #6 tab.rapdis 02/21/18 [Rx] Acetaminophen [Tylenol] 650 mg PO Q6HR PRN 03/03/18 [History] Amoxicillin/Clavulanate [Augmentin] 875 mg PO BIDWM 03/03/18 [History] Atorvastatin Calcium 80 mg PO HS 03/03/18 [History] Benzonatate [Tessalon] 100 mg PO TID PRN 03/03/18 [History] Dronabinol [Marinol] 2.5 mg PO BIDLS 03/03/18 [History] GuaiFENesin/Dextromethorphan [Robitussin/DM] 10 ml PO Q6HR PRN 03/03/18 [History ] Guaifenesin [Mucinex] 600 mg PO BID 03/03/18 [History] Levofloxacin [Levaquin] 500 mg PO Q48H 03/03/18 [History] Sertraline [Zoloft] 25 mg PO HS 03/03/18 [History] 3 Allergy/AdvReac Type Severity Reaction Status Date / Time codeine Allergy Rash Verified 03/03/18 07:01 losartan [From Cozaar] Allergy See Verified 03/03/18 07:01 Comments lisinopril AdvReac Cough Verified 03/03/18 07:01 promethazine [From Phenergan] AdvReac Confusion Verified 03/03/18 07:01 All Systems: The remainder of the systems were reviewed and are negative Review of Systems: Constitutional: Denies fevers, chills, weight loss, generalized fatigue Head/Neck: Denies ELIZALDE, neck stiffness EENT: Denies vision changes/blurriness, rhinorrhea, congestion, sore throat CVS: Admits to chest pain one month ago which has resolved, no orthopnea or PND Pulm: Denies SOB, cough, sputum, hemoptysis, wheezing GI: Admits to feelings of bloating, abdominal pain. She does admit to some constipation. 2 days of vomiting, non-bloody. : Denies dysuria, increased frequency, urgency, hematuria Heme: Denies ease of bleeding or bruising MSK: Denies joint pain, limited ROM Skin: Denies rashes, ulcers, color changes Neuro: Denies ELIZALDE, paresthesias, focal deficits, ataxia Physical Examination Vital Signs: Vital Signs, Last 4 Hours Pulse Resp BP Pulse Ox 03/03/18 09:35 89 20 145/55 96 03/03/18 09:05 95 20 132/52 95 03/03/18 08:45 20 133/45 03/03/18 08:35 96 20 132/45 97 Gen: Vitals noted. No acute distress. AAOx3 HEENT: PERRL/EOMI, oropharynx clear, Normocephalic, atraumatic Neck: Supple. No adenopathy. Cardiac: RRR, no murmur, +S1/S2 Pulmonary: B/l mild wheezing on exam Abdomen: soft, nontender, BS noted, no guarding Back: Nontender throughout. MSK: ROM intact, no joint swelling noted Extremities: no BLE edema, nontender calf, no cyanosis or clubbing Neuro: A&Ox3, moves all extremities, no focal deficits Psych: Appropriate mood and behavior Results - Laboratory Findings CBC and BMP: 03/03/18 11:43 03/03/18 11:53 Abnormal lab findings: Abnormal lab results VBG pCO2 30 mmHg (41-51) L 03/03/18 06:38 VBG pO2 120 mmHg (25-50) H 03/03/18 06:38 VBG HCO3 18 mEq/L (21-27) L 03/03/18 06:38 Sodium 134 mEq/L (136-145) L 03/03/18 06:20 Chloride 95 mEq/L (98-107) L 03/03/18 06:20 Carbon Dioxide 14 mEq/L (23-29) L 03/03/18 06:20 Creatinine 3.61 mg/dL (0.60-1.20) H 03/03/18 06:20 Est GFR ( Amer) 15 (> 60) L 03/03/18 06:20 Est GFR (Non-Af Amer) 12 (> 60) L 03/03/18 06:20 Glucose 521 mg/dL (70-105) H* 03/03/18 06:20 POC Glucose 526 mg/dL (70-99) H* 03/03/18 06:03 Calculated Osmolality 304 (280-300) H 03/03/18 06:20 Lactic Acid 2.6 mmol/L (0.5-2.2) H 03/03/18 08:02 Calcium 8.2 mg/dL (8.6-10.3) L 03/03/18 06:20 Magnesium 1.5 mg/dL (1.6-2.6) L 03/03/18 06:20 Beta-Hydroxybutyric Acd > 2.00 mmol/L (0.02-0.27) H 03/03/18 06:20 - Diagnostic Findings Chest x-ray: pending, image reviewed <Claire Gallegos S - Last Filed: 03/03/18 20:36> Date of Encounter: 03/03/18 History of Present Illness HPI: Ms. Andres is a 73 year old female All Systems: The remainder of the systems were reviewed and are negative Physical Examination Vital Signs: Vital Signs, Last 4 Hours Pulse Resp BP Pulse Ox 03/03/18 19:33 87 03/03/18 18:00 84 22 123/54 94 03/03/18 17:00 88 18 141/62 91 Results - Laboratory Findings CBC and BMP: 03/03/18 11:43 03/03/18 11:53 Abnormal lab findings: Abnormal lab results RBC 2.35 M/mcL (3.82-4.97) L 03/03/18 11:43 Hgb 7.0 g/dL (11.5-15.4) L 03/03/18 11:43 Hct 22.5 % (35.3-44.9) L 03/03/18 11:43 MCHC 31.1 g/dL (31.6-35.5) L 03/03/18 11:43 RDW 15.9 % (11.5-14.5) H 03/03/18 11:43 Neutrophils # 9.6 K/mcL (1.6-8.9) H 03/03/18 11:43 Lymphocytes # 0.4 K/mcL (0.6-4.6) L 03/03/18 11:43 Nucleated RBCs/100 WBC 0.2 /100 WBC (0) H 03/03/18 11:43 VBG pCO2 30 mmHg (41-51) L 03/03/18 06:38 VBG pO2 120 mmHg (25-50) H 03/03/18 06:38 VBG HCO3 18 mEq/L (21-27) L 03/03/18 06:38 Potassium 3.0 mEq/L (3.5-5.1) L D 03/03/18 11:53 Creatinine 3.69 mg/dL (0.60-1.20) H 03/03/18 11:53 Est GFR ( Amer) 15 (> 60) L 03/03/18 11:53 Est GFR (Non-Af Amer) 12 (> 60) L 03/03/18 11:53 Glucose 135 mg/dL (70-105) H 03/03/18 11:53 Lactic Acid 2.3 mmol/L (0.5-2.2) H 03/03/18 13:37 Calcium 7.9 mg/dL (8.6-10.3) L 03/03/18 11:53 Magnesium 1.5 mg/dL (1.6-2.6) L 03/03/18 06:20 Beta-Hydroxybutyric Acd > 2.00 mmol/L (0.02-0.27) H 03/03/18 06:20 - Attending Attestation I saw and evaluated this patient and my medical decision-making was reviewed with the Resident Physician. I agree with the documented findings, disposition and treatment plan as described except to the extent set forth below. We independently had [id number] contact with the patient. Patient seen and examined at bedside Labs, radiology, chart personally reviewed. Management was reviewed during multidisciplinary critical care rounds. ARTISTIC ASSOCIATE:Patient is conscious oriented x 3 Pulm: Patient has acceptable oxygenation and ventilation . CXR shows bilateral pleural effusion secondary to diastolic dysfunction and heart failure Cards: Patient is hemodynamically stable followed by cardiology FEN-GI: Patient has some gastroenteritis symptoms according to patient getting better , Nausea getting better Renal:CKD on Dialysis . No urgent need for dialysis . Nephrology following . Patient has DKA on DKA protocol , BMP Anion gap closed x 1 ID: No active infections issues Heme/Onc: Chronic Anemia most likely due to chronic kidney disease Endo: Glucose Monitored Integ/MSK: Skin Care per routine ICU Nursing Protocol to prevent ulcers. Lines: All lines examined without evidence of infection : Dispo: Patient to remains in ICU CODE:[id number]
[2018-03-03] MEDS ORDERED: Naloxone 0.4 MG/ML INJ IVP PRN (11:43)
[2018-03-03] MEDS ORDERED: D5% in 0.45% NACL w KCl 20 MEQ/1,000 ML MLS IVC PRN (11:52)
[2018-03-03] MEDS ORDERED: Insulin Regular, Human 100 UNIT/ML IV PRN ×3 (11:52→11:55)
[2018-03-03] MEDS ORDERED: D5% in 0.45% NACL 1,000 ML IVC PRN (11:52)
[2018-03-03] MEDS ORDERED: Simethicone 40 MG/0.6 ML MLS PO PRN (13:31)
[2018-03-03 13:33] LABS: Basophils % 0.1 %; Eosinophils % 0.1 %; Hematocrit 22.5 % (35.3-44.9); Immature Granulocytes % 0.4 % (0-4); Lymphocytes # 0.4 K/mcL (0.6-4.6); Lymphocytes % 3.7 %; Mean Corpuscular HGB Conc 31.1 g/dL (31.6-35.5); Mean Corpuscular Hemoglobin 29.8 pg (28.0-33.3); Mean Corpuscular Volume 95.7 fL (83.0-100.0); Mean Platelet Volume 10.4 fL (9.4-12.4); Monocytes # 0.7 K/mcL (0.0-1.3); Monocytes % 6.4 %; Neutrophils # 9.6 K/mcL (1.6-8.9); Nucleated Red Blood Cells 0.2 /100 WBC (0); Platelet Count 209 K/mcL (140-400); Red Blood Count 2.35 M/mcL (3.82-4.97); Red Cell Distribution Width 15.9 % (11.5-14.5); Segmented Neutrophils % 89.3 %
[2018-03-03] MEDS ORDERED: Ondansetron 4 MG/2 ML VIAL IVP PRN (13:33)
[2018-03-03] MEDS ORDERED: *HR* LORazepam 2 MG/ML VIAL IVP PRN (13:35)
[2018-03-03] MEDS: 0.9 % Sodium Chloride w KCl 20 MEQ/1,000 ML MLS IVC SCH (13:58)
[2018-03-03 13:59] LABS: Calcium 7.9 mg/dL (8.6-10.3)
[2018-03-03] MEDS: 0.45 % Sodium Chloride w/KCl 20 MEQ/1,000 ML MLS IVC SCH (13:59)
--- NOTE | 2018-03-03 14:10 | Palliative - Consult Note ---
Date of Encounter: 03/03/18 Time of Encounter: 13:00 - Assessment and Plan (1) Abdominal gas pain Current Visit: Yes Status: Acute Assessment and plan: Patient reports increased abdominal gas pain. Denies pain anywhere else. Ordered Gas X drops PRN. (2) Nausea and vomiting Current Visit: No Status: Acute Assessment and plan: Patient reports continued nausea. Denies vomiting since arrival. Ordered PRN Zofran IVP. Qualifiers: Vomiting type: unspecified Vomiting Intractability: non-intractable Qualified Code(s): R11.2 - Nausea with vomiting, unspecified (3) Goals of care, counseling/discussion Current Visit: No Status: Acute Assessment and plan: Evaluated wishes for CODE STATUS; patient confirms DNR CCA/DNI and niece acknowledges agreement. Patient informed pattern chart writer that her heart has been through enough and she doesn't believe she would make it off a ventilator. Evaluated goals of care and offered alternative options; patients wishes to continue aggressive treatment with the intent to return to [facility] [place] for rehab at discharge. Patient reports she is a very logical women and knows that she will be able to identify the time when she wants to stop Dialysis and transfer to hospice. MPOA in agreement to continue aggressive treatment at this time. Patient requested [facility] to keep her son informed of status of care at this time. Requested Lynda to bring in MPOA forms to be scanned into chart. Palliative will continue to follow. Lynda Mak [phone] (4) Diabetic ketosis Current Visit: Yes Status: Acute (5) Anxiety Current Visit: Yes Status: Acute Assessment and plan: Patient reports increased anxiety since admission. Patient reports she has to take Ativan at the [facility] prior to dialysis as it induces such anxiety. Ordered Ativan IVP PRN for anxiety maintenance at this time as patient is NPO. Palliative-CN HPI - Data of Consult Patient: new to practice Consult date: 03/03/18 Requesting Physician: Claire Gallegos MD Primary Care Provider: Tawana Quintero CNP - Consult Narrative Palliative Care/Comfort Measures: Palliative care Reason for consult: Clarify goals of care History of present illness: Ms. Andres is a 73 year old female arrived to [facility] 03/03/2018 via squad for re-evaluation of elevated blood sugar. Patient had been nauseated and vomiting after being seen the previous evening for hypoglycemia. Patient is a transfer from [facility]. Patient has recent history of being hospitalized for NSTEMI post right shoulder repair and pneumonia. EKG performed showing change from previous EKG. Patient's nausea improved. Blood glucose level remained elevated. Patient admitted to ICU under hospitalist management for diabetic ketoacidosis. Palliative care consulted for clarification of goals of care, as chart includes a history of DNR CCA/DNI. Met with Nuria Mckenna. Patient was alert and oriented times three; some anxiety was noted. At initial evaluation, no family was present at bedside; however, a niece (MPOScott Mak) arrived at bedside for review of consult visit. Patient gave a great historical account from 01/25/18-present. Patient identified Lynda Mak as MPOA, as she feels her son whom lives in [facility] is not close enough to be MPOA in her opinion. Patient reports PMH of CAD, DM, GERD, Hyperlipidemia, HTN, [place], CKD. Past Surgical hx: CABG, Orthopedic shoulder , EGD, and colonoscopy. Patient complains of increased gas pain, nausea, and anxiety. Patient denies any other type of pain and reports that she doesn't like Phenergan as it makes her "too loopy." Ensured patient would not receive an order for phenergan. Explained process of DKA to patient and family as there was a lack of understanding; verbalized understanding at this time. CC: Claire Gallegos MD Past Med Surg Social Fam HX - Past Medical History Medical history: coronary artery disease, diabetes, GERD, hyperlipidemia, hypertension, myocardial infarction, renal disease Psychiatric history: no psych history - Past Surgical History Surgical History: coronary bypass (CABG), orthopedic, other, other - Social History Smoking Status: Never smoker Smokeless Tobacco Status: No Alcohol use: none Drug use: none - Family History Father Living Status: Hx Family Cardiac Disorders: Yes (CAD, [place]) Mother Living Status: Hx Family Cardiac Disorders: Yes (CAD) Hx Family Endocrine Disorder: Yes (DMII, kidney problems) Medications and Allergies Insulin NPH Hum/Reg Insulin Hm [Novolin 70-30 100 Unit/ml Vial] 12 unit SQ QPM 07/31/16 [History] Insulin NPH Hum/Reg Insulin Hm [Novolin 70-30 100 Unit/ml Vial] 22 unit SQ QAM 07/31/16 [History] Metoprolol [Lopressor] 12.5 mg PO BID 07/31/16 [History] Ranitidine HCl [Heartburn Relief] 150 mg PO BID 07/31/16 [History] Ergocalciferol (VITAMIN D2) [Vitamin D2 (50,000 UNIT)] 50,000 unit PO Q14D 08/01 [History] Rosuvastatin [Crestor] 40 mg PO HS #30 tablet 08/02/16 [Rx] Furosemide [Lasix] 20 mg PO DAILY 01/25/18 [History] Nitroglycerin [Nitrostat] 0.4 mg SL Q5M PRN 01/25/18 [History] Aspirin 81 mg PO DAILY tab.chew 02/20/18 [Rx] Ondansetron ODT [Zofran ODT] 4 mg PO Q6HR 30 Days #6 tab.rapdis 02/21/18 [Rx] Acetaminophen [Tylenol] 650 mg PO Q6HR PRN 03/03/18 [History] Amoxicillin/Clavulanate [Augmentin] 875 mg PO BIDWM 03/03/18 [History] Atorvastatin Calcium 80 mg PO HS 03/03/18 [History] Benzonatate [Tessalon] 100 mg PO TID PRN 03/03/18 [History] Dronabinol [Marinol] 2.5 mg PO BIDLS 03/03/18 [History] GuaiFENesin/Dextromethorphan [Robitussin/DM] 10 ml PO Q6HR PRN 03/03/18 [History ] Guaifenesin [Mucinex] 600 mg PO BID 03/03/18 [History] Levofloxacin [Levaquin] 500 mg PO Q48H 03/03/18 [History] Sertraline [Zoloft] 25 mg PO HS 03/03/18 [History] 3 Allergy/AdvReac Type Severity Reaction Status Date / Time codeine Allergy Rash Verified 03/03/18 07:01 losartan [From Cozaar] Allergy See Verified 03/03/18 07:01 Comments lisinopril AdvReac Cough Verified 03/03/18 07:01 promethazine [From Phenergan] AdvReac Confusion Verified 03/03/18 07:01 - Constitutional Constitutional ROS PAL: weight loss, no decreased appetite - Gastrointestinal Gastrointestinal: cramping, diarrhea, fecal incontinence, loose stools, nausea, vomiting, no constipation - Neurological Neurological ROS: no confusion - Psychiatric Psychiatric general PM: anxiety Palliative Care-Exam - Constitutional Vitals: Temp Pulse Resp BP Pulse Ox 98.4 F 95 20 98/75 99 03/03/18 12:11 03/03/18 11:00 03/03/18 11:00 03/03/18 11:00 03/03/18 11:00 General appearance: Present: cooperative, mild distress, thin - Head Head Exam: Present: atraumatic, normal inspection - Eye Eye exam: Present: normal appearance, conjuntiva pink. Absent: nystagmus, periorbital swelling, periorbital tenderness Pupils: Present: normal accommodation, PERRL - ENT ENT exam: Present: mucous membranes dry, normal external ear exam - Expanded ENT Exam Mouth Exam: Present: dry mucosa, normal external inspection. Absent: drooling - Neck Neck exam: Present: full ROM, normal inspection. Absent: tenderness - Respiratory Respiratory exam: Present: CTAB. Absent: accessory muscle use, respiratory distress - Cardiovascular Cardiovascular exam: Present: +S1, +S2 - Expanded Cardiovascular Exam Peripheral pulses: 2+: Carotid (R) PM, Radial (L), Posterior Tibialis (L), Posterior Tibialis (R) - GI/Abdominal Exam GI/Abdominal exam: Present: firm, hyperactive bowel sounds. Absent: tenderness - Rectal Rectal exam: Present: deferred - Expanded Lower Extremities Exam Neuro vascular tendon exam: Absent: extremity cold to touch (Pedal Edema +1) - Neurological Exam Neurological exam: Present: alert, oriented X3, strengths equal and symetr throughout - Expanded Neurological Exam Patient oriented to: Present: person, place, time Coma Scale Eye Opening: Spontaneous Coma Scale Motor Response: Obeys Commands Coma Scale Verbal Response: Oriented Coma Scale Total: 15 - Psychiatric Psychiatric exam: Present: anxious - Skin Skin exam: Present: dry, warm Internal Medicine - CN: Reslt - Labs CBC & Chem 7: 03/03/18 11:43 03/03/18 06:20 Labs: Short CBC 03/03/18 Range/Units 11:43 WBC 10.7 (4.3-11.1) K/mcL Hgb 7.0 L (11.5-15.4) g/dL Hct 22.5 L (35.3-44.9) % Plt Count 209 (140-400) K/mcL Neutrophils # 9.6 H (1.6-8.9) K/mcL Consult Discharge Plan - Plan Referrals: Tawana Quintero CNP [Primary Care Provider] - Palliative Quality Palliative Quality: Screen for Code Status: Yes, Screen for Goals of Care: Yes, Screen for Pain: Yes, If Pain Regimen Started, Initiate Bowel Regimen: NA, Screen for Nausea/Vomitting: Yes Code Status: 03/03/18 13:31 DNR [Resuscitation Status: Active] [RES] Routine Comment: Resuscitation Status: [id number]
[2018-03-03] MEDS ORDERED: D5% in Water 1,000 ML IVC PRN (14:13)
--- NOTE | 2018-03-03 14:13 | Cardiology Consult Note ---
<Amado Bennett R - Last Filed: 03/03/18 14:44> Date of Encounter: 03/03/18 Time of Encounter: 14:07 Assessment and Plan (1) Acute electrocardiogram changes Current Visit: No Status: Acute Cardiology consulted for EKG changes. Mild diffuse changes noted, unclear significance. Initial troponin negative. Per HPI, recently hospitalized for NSTEMI 01/2018 with peak troponin 8.76. Did not undergo LHC due to renal insufficiency and being unable to lay flat. Plan was to re-evaluate as outpt. Pt is now on dialysis, which she hopes is temporary. She denies chest pain or worsening dyspnea. Reports anxiety that causes dyspnea at times. TTE 01/2018 EF 55%, mild-moderate MR, moderate-severe TR, severe phtn. Pt is DNR-CCA-DNI. She is unsure if she would be willing to revoke code status for 24 hours for LHC. She is also hesitant to proceed with LHC due to risk of SAMSON, causing dialysis to be permanent. Given code status, preserved EF, being asymptomatic with a negative troponin this admission, medical management seems like the most appropriate strategy. Resume ASA, Statin, BB. I discussed at length with pt and family. Will discuss with Dr. Shen. Anticipate sign off once seen by Dr. Shen and can reconsult if pt wishes to pursue LHC. (2) Coronary artery disease Current Visit: Yes Status: Chronic Hx of PCI in 2007, CABG in 2010. Resume ASA, Statin, BB. Qualifiers: Coronary Disease-Associated Artery/Lesion type: bypass graft [place] vs. transplanted heart: [place] heart Associated angina: without angina Qualified Code(s): I25.810 - Atherosclerosis of coronary artery bypass graft(s) without angina pectoris (3) Anemia Current Visit: Yes Status: Chronic Chronic anemia, HGB 7.0. Underwent EGD/Colonoscopy last month. Normal colonoscopy. EKG found a nonbleeding lesion that was biopsied. Qualifiers: Anemia type: due to chronic kidney disease Chronic kidney disease stage: stage 4 (severe) Qualified Code(s): N18.4 - Chronic kidney disease, stage 4 ( severe); D63.1 - Anemia in chronic kidney disease; D63.1 - Anemia in chronic kidney disease Discussion w patient/family: The assessment and plan as outlined above was discussed with the patient and/or family members who expressed understanding and agreement. All questions were answered. Thank you for involving us in the care of your patient. Please call with any questions. I will discuss all the above with Dr. Shen and make changes as necessary. History of Present Illness Consult date: 03/03/18 Requesting physician: Young Vick Consult reason: EKG changes Chief complaint: n/v History of present illness: Ms. Andres is a 73 year old female with PMH CAD with PCI in 2007, CABG in 2010, DMII, chronic anemia, moderate MR, moderate-severe TR, CKD recently started on dialysis that presented to ED today for nausea/vomiting, DKA, currently on insulin gtt. EKG changes noted and cardiology consulted for further recs. Initial troponin negative. Pt denies chest pain or worsening dyspnea. Reports anxiety. Of note, pt had a lengthy hospitalization last month, NSTEMI at that time with peak troponin 8.76. Cardiology was following at that time. EF preserved on TTE 01/2018 55%. Pt did not undergo LHC during last stay due to worsening renal function that ended up warranting dialysis. She was then unable to lay flat. The plan was outpt follow-up to evaluate for LHC at that time. Prior CV testing: TTE 01/2018 LVEF 55%, mild-moderate MR, moderate-severe TR, severe phtn est RVSP 70-75mmHg. Past Med Surg Social Fam HX - Past Medical History Medical history: coronary artery disease, diabetes, GERD, hyperlipidemia, hypertension, myocardial infarction, renal disease Psychiatric history: no psych history - Past Surgical History Surgical History: coronary bypass (CABG), orthopedic, other, other - Social History Smoking Status: Never smoker Smokeless Tobacco Status: No Alcohol use: none Drug use: none - Family History Father Living Status: Hx Family Cardiac Disorders: Yes (CAD, [place]) Mother Living Status: Hx Family Cardiac Disorders: Yes (CAD) Hx Family Endocrine Disorder: Yes (DMII, kidney problems) Medications and Allergies Insulin NPH Hum/Reg Insulin Hm [Novolin 70-30 100 Unit/ml Vial] 12 unit SQ QPM 07/31/16 [History] Insulin NPH Hum/Reg Insulin Hm [Novolin 70-30 100 Unit/ml Vial] 22 unit SQ QAM 07/31/16 [History] Metoprolol [Lopressor] 12.5 mg PO BID 07/31/16 [History] Ranitidine HCl [Heartburn Relief] 150 mg PO BID 07/31/16 [History] Ergocalciferol (VITAMIN D2) [Vitamin D2 (50,000 UNIT)] 50,000 unit PO Q14D 08/01 [History] Rosuvastatin [Crestor] 40 mg PO HS #30 tablet 08/02/16 [Rx] Furosemide [Lasix] 20 mg PO DAILY 01/25/18 [History] Nitroglycerin [Nitrostat] 0.4 mg SL Q5M PRN 01/25/18 [History] Aspirin 81 mg PO DAILY tab.chew 02/20/18 [Rx] Ondansetron ODT [Zofran ODT] 4 mg PO Q6HR 30 Days #6 tab.rapdis 02/21/18 [Rx] Acetaminophen [Tylenol] 650 mg PO Q6HR PRN 03/03/18 [History] Amoxicillin/Clavulanate [Augmentin] 875 mg PO BIDWM 03/03/18 [History] Atorvastatin Calcium 80 mg PO HS 03/03/18 [History] Benzonatate [Tessalon] 100 mg PO TID PRN 03/03/18 [History] Dronabinol [Marinol] 2.5 mg PO BIDLS 03/03/18 [History] GuaiFENesin/Dextromethorphan [Robitussin/DM] 10 ml PO Q6HR PRN 03/03/18 [History ] Guaifenesin [Mucinex] 600 mg PO BID 03/03/18 [History] Levofloxacin [Levaquin] 500 mg PO Q48H 03/03/18 [History] Sertraline [Zoloft] 25 mg PO HS 03/03/18 [History] 3 Allergy/AdvReac Type Severity Reaction Status Date / Time codeine Allergy Rash Verified 03/03/18 07:01 losartan [From Cozaar] Allergy See Verified 03/03/18 07:01 Comments lisinopril AdvReac Cough Verified 03/03/18 07:01 promethazine [From Phenergan] AdvReac Confusion Verified 03/03/18 07:01 All Systems Review: The remainder of the systems were reviewed and are negative - Gastrointestinal Gastrointestinal: nausea Physical Examination Vital Signs, Last 4 Hours Temp Pulse Resp BP Pulse Ox 03/03/18 12:11 98.4 F 03/03/18 11:00 98.2 F 95 20 98/75 99 Vital Signs Temp Pulse Resp BP Pulse Ox 03/03/18 14:08 91 03/03/18 14:00 91 18 115/59 99 03/03/18 12:11 98.4 F 03/03/18 11:00 98.2 F 95 20 98/75 99 03/03/18 10:00 98.2 F 95 20 136/49 99 03/03/18 09:35 89 20 145/55 96 03/03/18 09:05 95 20 132/52 95 03/03/18 08:45 20 133/45 03/03/18 08:35 96 20 132/45 97 03/03/18 08:05 92 20 135/54 95 03/03/18 07:11 89 22 136/41 99 03/03/18 07:10 90 20 136/41 97 03/03/18 05:55 98.2 F 95 20 134/89 90 Intake and Output 03/02/18 03/03/18 03/03/18 23:59 07:59 15:59 Intake Total 500 / 500 1084 / 1084 Balance 500 / 500 1084 / 1084 Intake: IV Fluids 500 / 500 1084 / 1084 0.9 % Sodium Chloride 1,000 ML 500 / 500 1000 / 1000 @ 3750 mls/hr IVC .Q16M [facility] Rx# :[id number] HumuLIN R 100 UNIT In 0.9 % 30 / 30 Sodium Chloride 100 ML @ 0.1 UNIT/KG/HR 5.49 mls/hr IVC CONT [facility] Rx#:[id number] Zofran 8 MG In 0.9 % Sodium 54 / 54 Chloride 50 ML @ 216 mls/hr IVPB ONCE ONE Rx#:[id number] Other: Stool Size Small Stool Consistency soft Weight 54.431 kg Blood Glucose* 80 Patient Weight 03/03/18 23:59 Weight 54.431 kg General: Conversant, No Apparent Distress HEENT: Atraumatic, Normocephaly, Mucus Membranes Moist Neck: No JVD, Normal carotid pulses Cardiac: Reg Rate and Rhythm, Normal S1 and S2, No Murmur Lungs: Other (diminished) Neuro: Alert and responsive Abdomen: Soft, Non-Tender Skin: No rashes noted on visualized skin Musculoskeletal: No Chest Wall Tenderness Extremities: No Clubbing, No Cyanosis, No Edema, Normal Pulses Results 03/03/18 11:43 03/03/18 11:53 Lab Results 03/03/18 03/03/18 03/03/18 11:19 11:43 11:53 WBC 10.7 RBC 2.35 L Hgb 7.0 L Hct 22.5 L MCV 95.7 MCH 29.8 MCHC 31.1 L RDW 15.9 H Plt Count 209 MPV 10.4 Immature Gran % 0.4 Seg Neutrophils % 89.3 Lymphocytes % 3.7 Monocytes % 6.4 Eosinophils % 0.1 Basophils % 0.1 Neutrophils # 9.6 H Lymphocytes # 0.4 L Monocytes # 0.7 Eosinophils # 0.0 Basophils # 0.0 Nucleated RBCs/100 WBC 0.2 H Sodium 139 Potassium 3.0 L D Chloride 104 Carbon Dioxide 24 BUN 22 Creatinine 3.69 H Glucose 135 H POC Glucose 244 H Calcium 7.9 L Short CBC 03/03/18 Range/Units 11:43 WBC 10.7 (4.3-11.1) K/mcL Hgb 7.0 L (11.5-15.4) g/dL Hct 22.5 L (35.3-44.9) % Plt Count 209 (140-400) K/mcL Neutrophils # 9.6 H (1.6-8.9) K/mcL BMP 03/03/18 03/03/18 Range/Units 11:53 06:20 Sodium 139 134 L (136-145) mEq/L Potassium 3.0 L D 4.6 D (3.5-5.1) mEq/L Chloride 104 95 L (98-107) mEq/L Carbon Dioxide 24 14 L (23-29) mEq/L BUN 22 20 (8-23) mg/dL Creatinine 3.69 H 3.61 H (0.60-1.20) mg/dL Glucose 135 H 521 H* (70-105) mg/dL Calcium 7.9 L 8.2 L (8.6-10.3) mg/dL Cardiac Enzymes 03/03/18 Range/Units 06:20 Troponin I 0.03 (< 0.04) ng/mL Impressions Abdomen/Pelvis CT 03/03/18 06:21 IMPRESSION: 1. No acute intra-abdominal or intrapelvic process is identified. Specifically, no evidence of obstructive uropathy. 2. Moderate right-sided pleural effusion and small left-sided pleural effusion are seen as on previous PET-CT images from February 2017. The etiology is uncertain. There is associated bibasilar atelectasis as on the previous exam. 3. Atherosclerotic vascular calcifications noted. D/ / Patric Cooper MD / Patric Cooper MD Interpreting Provider: Patric Cooper MD Chest X-Ray 03/03/18 06:21 IMPRESSION: Stable chest. D/ / Patric Cooper MD / Patric Cooper MD Interpreting Provider: Patric Cooper MD Active Medications Dextrose/Water (Dextrose 50% (Syg)) 50 ml IVP ONCE PRN PRN Reason: Hypoglycemia Stop: 09/02/18 06:22 Dextrose/Water (Dextrose 50% (Syg)) 25 ml IVP Q15MIN PRN PRN Reason: Hypoglycemia Stop: 09/02/18 11:53 Dextrose/Water (Dextrose 50% (Syg)) 25 ml IVP Q15MIN PRN PRN Reason: Hypoglycemia Stop: 09/02/18 11:56 Sodium Chloride (0.9 % Sodium Chloride) 1,000 mls @ 3,750 mls/hr IVC .Q16M [facility] Stop: 09/02/18 08:46 Last Admin: 03/03/18 14:01 Dose: Not Given Dextrose/Sodium Chloride (D5% And 0.45% Nacl 1000 Ml Bag) 1,000 mls @ 250 mls/ hr IVC .Q4H PRN PRN Reason: See comments Stop: 09/02/18 11:53 Last Admin: 03/03/18 14:05 Dose: 250 mls/hr Potassium Chloride/Dextrose/Sod Cl (Kcl 20meq In D5%-0.45 Nacl) 20 meq in 1, 000 mls @ 250 mls/hr IVC .Q4H PRN PRN Reason: See Comments Stop: 09/02/18 11:53 Sodium Chloride (0.45% Sodium Chloride 1000 Ml 1000 Ml) 1,000 mls @ 500 mls/hr IVC .Q2H [facility] PRN Reason: Protocol Stop: 09/02/18 12:01 Last Admin: 03/03/18 13:57 Dose: Not Given Potassium Chloride/Sodium Chloride (Kcl 20meq In 0.45 % Nacl) 20 meq in 1,000 mls @ 500 mls/hr IVC .Q2H [facility] PRN Reason: Protocol Stop: 09/02/18 12:01 Last Admin: 03/03/18 13:59 Dose: Not Given Sodium Chloride (0.9 % Sodium Chloride) 1,000 mls @ 500 mls/hr IVC .Q2H [facility] PRN Reason: Protocol Stop: 09/02/18 12:01 Last Admin: 03/03/18 13:57 Dose: Not Given Potassium Chloride/Sodium Chloride (Kcl 20 Meq In 0.9% Sodium Chloride) 20 meq in 1,000 mls @ 500 mls/hr IVC .Q2H [facility] PRN Reason: Protocol Stop: 09/02/18 12:01 Last Admin: 03/03/18 13:58 Dose: Not Given Insulin Human Regular 100 unit (/ Sodium Chloride) 101 mls @ 5.49 mls/hr IVC CONT [facility]; 0.1 UNIT/KG/HR PRN Reason: Protocol Stop: 09/02/18 14:01 Last Admin: 03/03/18 13:59 Dose: Not Given Insulin Human Regular 100 unit (/ Sodium Chloride) 101 mls @ 5.49 mls/hr IVC CONT [facility]; 0.1 UNIT/KG/HR PRN Reason: Protocol Stop: 09/02/18 14:01 Last Admin: 03/03/18 13:59 Dose: Not Given Insulin Human Regular (Humulin R) 7 unit 0.14 unit/kg (7 unit) IV ONCE PRN PRN Reason: SEE COMMENTS Insulin Human Regular (Humulin R) 5 unit IV ONCE PRN PRN Reason: SEE COMMENTS Stop: 09/02/18 11:53 Insulin Human Regular (Humulin R) 5 unit IV ONCE PRN PRN Reason: SEE COMMENTS Stop: 09/02/18 11:56 Lorazepam (Ativan) 0.5 mg IVP Q4H PRN PRN Reason: Anxiety Stop: 09/02/18 13:46 Naloxone HCl (Narcan) 0.4 mg IVP Q2MIN PRN PRN Reason: SEE COMMENTS Stop: 09/02/18 11:44 Ondansetron HCl (Zofran) 4 mg IVP Q6HR PRN; Protocol PRN Reason: nausea/vomit Stop: 09/02/18 13:34 Potassium Chloride (Potassium Chloride) 40 meq PO ONCE ONE Stop: 03/03/18 14:12 Simethicone (Simethicone) 80 mg PO QID PRN PRN Reason: Gas pain Stop: 09/02/18 13:32 - Imaging and Cardiology Echo: report reviewed - EKG Interpretation EKG results cardiology: personally reviewed Consult Discharge Plan - Plan Referrals: Tawana Quintero, PROFESSOR [employer] [Primary Care Provider] - <Ree Shen - Last Filed: 03/03/18 16:48> Date of Encounter: 03/03/18 - Attending Attestation I examined this patient and my medical decision-making was reviewed with the Resident Physician. I agree with the documented findings, disposition and treatment plan. Ms. Andres presented this admission nausea, vomiting and DKA. She was recently started on dialysis for CKD. We were asked to discuss consideration for LHC while she is here given recent history of NSTEMI - did not under go LHC at the time due to worsening renal function and inability to lay flat. Discussed risks vs benefits vs alternatives of proceeding with LHC with patient and family members. At this point I do not believe that the patient is interested in pursuing LHC. She is hesitant to revoke her code status for the procedure. Also, notably her LV systolic function remains normal. RV dysfunction likely secondary to underlying pulmonary hypertension. However, I did offer this option to the patient. She would like to speak with Dr. Lila ling to decide if there is a chance for renal recovery - if so she would not want LHC. At this time, continue asa, statin, BB. Assessment and Plan Discussion w patient/family: The assessment and plan as outlined above was discussed with the patient and/or family members who expressed understanding and agreement. All questions were answered. Thank you for involving us in the care of your patient. Please call with any questions. History of Present Illness History of present illness: Ms. Andres is a 73 year old female All Systems Review: The remainder of the systems were reviewed and are negative Physical Examination Vital Signs, Last 4 Hours Pulse Resp BP Pulse Ox 03/03/18 16:00 90 20 119/58 97 03/03/18 15:00 89 22 119/58 94 03/03/18 14:08 91 03/03/18 14:00 91 18 115/59 99 Results 03/03/18 11:43 03/03/18 11:53 Lab Results 03/03/18 03/03/18 11:43 11:53 WBC 10.7 Hgb 7.0 L Hct 22.5 L Plt Count 209 Sodium 139 Potassium 3.0 L D Chloride 104 Carbon Dioxide 24 BUN 22 Creatinine 3.69 H Glucose 135 H Calcium 7.9 L
[2018-03-03] MEDS ORDERED: Insulin DETEMIR 100 UNIT/ML X5UNITS SQ ONE (14:14)
[2018-03-03] MEDS: Insulin LISPRO 300 UNITS/3 ML VIAL SQ SCH (16:15)
[2018-03-03] MEDS: *HR* Heparin 5,000 UNIT/ML VIAL SQ SCH (17:32)
--- NOTE | 2018-03-03 18:13 | Nephrology Consult Note ---
Date of Encounter: 03/03/18 Time of Encounter: 17:30 Assessment and Plan (1) End stage kidney disease Status: Chronic Since she is not fluid overloaded or hyperkalemic or urgently uremic, will plan to arrange for HD tomorrow (Tuesday). Thank you for consulting the [facility] service. Will hold off on HD today (Tuesday) being that I was consulted so late in the day and given that she is not overtly uremic, fluid overloaded or hyperkalemic, she should be self while being monitored for dialysis in the morning. Will follow with you. History of Present Illness - Reason for Consult Consult date: 03/03/18 end stage renal disease Requesting physician: Katie Casey - Chief Complaint ESRD - History of Present Illness Elo Andres is a very pleasant 73 y/o lady with a pmh of ESRD on HD who recent was started on dialysis. She is a patient of the [facility] she said, and this is the first time that I'm meeting her. She denied N/V/D or CP or ShOB or problems with F/C or problems with her PD catheter. She said that her BG has been worsening and she was admitted to the ICU for DKA. She denied missing any HD and last attended dialysis on Tuesday (today is Tuesday). Past Med Surg Social Fam HX - Past Medical History Medical history: coronary artery disease, diabetes, GERD, hyperlipidemia, hypertension, myocardial infarction, renal disease Psychiatric history: no psych history - Past Surgical History Surgical History: coronary bypass (CABG), orthopedic, other (Shoulder scope), other (EGD 2010, colonoscopy greater than 10 year ago) - Social History Smoking Status: Never smoker Smokeless Tobacco Status: No Alcohol use: none Drug use: none - Family History Father Living Status: Hx Family Cardiac Disorders: Yes (CAD, [place]) Mother Living Status: Hx Family Cardiac Disorders: Yes (CAD) Hx Family Endocrine Disorder: Yes (DMII, kidney problems) Medications and Allergies Metoprolol [Lopressor] 12.5 mg PO BID 07/31/16 [History] Ranitidine HCl [Heartburn Relief] 150 mg PO BID 07/31/16 [History] Ergocalciferol (VITAMIN D2) [Vitamin D2 (50,000 UNIT)] 50,000 unit PO Q14D 08/01 [History] Rosuvastatin [Crestor] 40 mg PO HS #30 tablet 08/02/16 [Rx] Nitroglycerin [Nitrostat] 0.4 mg SL Q5M PRN 01/25/18 [History] Aspirin 81 mg PO DAILY tab.chew 02/20/18 [Rx] Ondansetron ODT [Zofran ODT] 4 mg PO Q6HR 30 Days #6 tab.rapdis 02/21/18 [Rx] Acetaminophen [Tylenol] 650 mg PO Q6HR PRN 03/03/18 [History] Benzonatate [Tessalon] 100 mg PO TID PRN 03/03/18 [History] Dronabinol [Marinol] 2.5 mg PO BIDLS 03/03/18 [History] GuaiFENesin/Dextromethorphan [Robitussin/Dm] 10 ml PO Q6HR PRN 03/03/18 [History ] Sertraline [Zoloft] 25 mg PO HS 03/03/18 [History] Insulin LISPRO [HumaLOG] 0 units SQ HS vial 03/06/18 [Rx] Insulin LISPRO [HumaLOG] 0 units SQ TIDAC vial 03/06/18 [Rx] 3 Allergy/AdvReac Type Severity Reaction Status Date / Time codeine Allergy Rash Verified 03/03/18 07:01 losartan [From Cozaar] Allergy See Verified 03/03/18 07:01 Comments lisinopril AdvReac Cough Verified 03/03/18 07:01 promethazine [From Phenergan] AdvReac Confusion Verified 03/03/18 07:01 Review of Systems All Systems: reviewed and no additional remarkable complaints except as stated Exam - Vital Signs Vital signs: Initial Vital Signs Temp Pulse Resp BP Pulse Ox 98.2 F 95 20 134/89 90 03/03/18 05:55 03/03/18 05:55 03/03/18 05:55 03/03/18 05:55 03/03/18 05:55 Vital Signs - Last 8 Hours Temp Pulse Resp BP Pulse Ox 03/03/18 18:00 84 22 123/54 94 03/03/18 17:00 88 18 141/62 91 03/03/18 16:00 90 20 119/58 97 03/03/18 15:00 89 22 119/58 94 03/03/18 14:08 91 03/03/18 14:00 91 18 115/59 99 03/03/18 12:11 98.4 F 03/03/18 11:00 98.2 F 95 20 98/75 99 Intake and Output 03/03/18 03/03/18 03/03/18 07:59 15:59 23:59 Intake Total 1517 / 1571 0 / 0 Balance 1517 / 1571 0 / 0 Intake: IV Fluids 1317 / 1317 0.9 % Sodium Chloride 1,000 ML 1000 / 1000 @ 3750 mls/hr IVC .Q16M [facility] Rx# :[id number] D5% And 0.45% Nacl 1000 Ml Bag 287 / 287 1,000 ML @ 250 mls/hr IVC .Q4H [facility] Rx#:[id number] HumuLIN R 100 UNIT In 0.9 % 30 / 30 Sodium Chloride 100 ML @ 0.1 UNIT/KG/HR 5.49 mls/hr IVC CONT [facility] Rx#:[id number] Oral 200 / 200 0 / 0 Other: Stool Size Small Stool Consistency soft Blood Glucose* 80 90 - General Appearance General appearance: well-developed, well-nourished, chronically ill, frail EENT: ATNC, PERRL, mucous membranes moist Neck: supple Respiratory: clear Cardiology: regular rate, regular rhythm, normal S1, normal S2 - Dialysis Access Dialysis Vascular Access: Venous Catheter (Permacath was C/D/I) Gastrointestinal: normoactive bowel sounds, no tenderness Integumentary: warm and dry Neurologic: no asterixis Musculoskeletal: no erythema, no cyanosis Psychiatric: cooperative Results - Lab Results 03/06/18 03:45 03/06/18 03:45 Most recent lab results Calcium 7.9 mg/dL (8.6-10.3) L 03/03/18 11:53 Magnesium 1.5 mg/dL (1.6-2.6) L 03/03/18 06:20 I reviewed the labs, med lists, vitals, imaging, progress notes. Consult Discharge Plan - Plan Referrals: Tawana Quintero, H[facility] [Primary Care Provider] -
[2018-03-03] MEDS: *HR* Dextrose 50 % in Water (Syg) 50 ML SYRINGE IVP PRN (20:26)
[2018-03-03] MEDS ORDERED: Insulin DETEMIR 100 UNIT/ML X5UNITS SQ SCH (21:00)
[2018-03-03] MEDS ORDERED: Insulin LISPRO 300 UNITS/3 ML VIAL SQ SCH (21:00)
[2018-03-03 21:10] LABS: Calcium 8.1 mg/dL (8.6-10.3)
[2018-03-04] MEDS: *HR* Dextrose 50 % in Water (Syg) 50 ML SYRINGE IVP PRN (00:03)
[2018-03-04 04:17] LABS: Basophils % 0.3 %; Eosinophils # 0.1 K/mcL (0.0-0.6); Eosinophils % 0.7 %; Hematocrit 23.1 % (35.3-44.9); Immature Granulocytes % 0.4 % (0-4); Lymphocytes # 0.8 K/mcL (0.6-4.6); Lymphocytes % 7.8 %; Mean Corpuscular HGB Conc 30.3 g/dL (31.6-35.5); Mean Corpuscular Hemoglobin 29.5 pg (28.0-33.3); Mean Corpuscular Volume 97.5 fL (83.0-100.0); Mean Platelet Volume 9.9 fL (9.4-12.4); Monocytes # 0.8 K/mcL (0.0-1.3); Neutrophils # 8.5 K/mcL (1.6-8.9); Platelet Count 206 K/mcL (140-400); Red Blood Count 2.37 M/mcL (3.82-4.97); Red Cell Distribution Width 16.6 % (11.5-14.5); Segmented Neutrophils % 82.8 %
[2018-03-04 04:26] LABS: VBG HCO3 25 mEq/L (21-27); VBG PCO2 39 mmHg (41-51); VBG PH 7.42 pH Units (7.32-7.42); VBG PO2 130 mmHg (25-50)
[2018-03-04] MEDS: *HR* Heparin 5,000 UNIT/ML VIAL SQ SCH ×2 (06:30→18:38)
--- NOTE | 2018-03-04 06:36 | Electrocardiograph Report ---
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
[2018-03-04] MEDS: Insulin LISPRO 300 UNITS/3 ML VIAL SQ SCH ×3 (07:45→17:17)
[2018-03-04] MEDS ORDERED: 0.9 % Sodium Chloride 250 ML IVC PRN ×2 (08:00→12:28)
[2018-03-04 08:54] LABS: Calcium 8.1 mg/dL (8.6-10.3); Potassium 3.9 mEq/L (3.5-5.1)
[2018-03-04] MEDS ORDERED: Aspirin 81 MG TAB.CHEW PO SCH (09:00)
--- NOTE | 2018-03-04 09:16 | Palliative Progress Note ---
<Narciso Boyer - Last Filed: 03/04/18 09:13> Date of Encounter: 03/04/18 Time of Encounter: 07:40 - Assessment and plan (1) DKA (diabetic ketoacidoses) Current Visit: Yes Status: Acute Assessment and plan: Diabetic ketoacidosis Patient presented with positive ketones, elevated anion gap of 26, glucose 521 Symptoms consistent with DKA including Nausea and Vomiting Admits to uncontrolled elevated blood glucose at home since prior admission Patient was started on insulin drip, given 3L NS bolus, and monitored q4h with BMP Anion gap was closed, basal insulin with SSI was initiated. Management per ICU/primary service. Qualifiers: Diabetes mellitus type: type 1 Diabetes mellitus complication detail: without coma Qualified Code(s): E10.10 - Type 1 diabetes mellitus with ketoacidosis without coma (2) End stage kidney disease Current Visit: Yes Status: Chronic Assessment and plan: Management per Nephrology, planning for HD today. (3) Nausea and vomiting Current Visit: Yes Status: Acute Assessment and plan: resolved, patient notes nausea has since improved. Zofran was ordered PRN. Qualifiers: Vomiting type: unspecified Vomiting Intractability: non-intractable Qualified Code(s): R11.2 - Nausea with vomiting, unspecified (4) Abdominal gas pain Current Visit: Yes Status: Acute Assessment and plan: Improved, patient denies pain on exam. (5) Anxiety Current Visit: Yes Status: Acute Assessment and plan: Patient reported increased anxiety yesterday, PRN ativan ordered. Patient appeared calm and collected during my examination and did not express concerns about anxiety. (6) Goals of care, counseling/discussion Current Visit: No Status: Acute Assessment and plan: Previously patient established code status of DNR CCA/DNI. Evaluated goals of care and offered alternative options; patients wishes to continue aggressive treatment with the intent to return to [facility] for rehab at discharge which she confirmed today. We did not discuss hospice further as she previously reported to the palliative team that she is a very logical women and knows that she will be able to identify the time when she wants to stop Dialysis and transfer to hospice. SULEIMAN not present today, but yesterday was noted to be in agreement to continue aggressive treatment at this time. Patient requested SULEIMAN to keep her son informed of status of care at this time. Palliative will continue to follow. - Time Spent With Patient Total time spent is greater than 50% in coordination of care (as documented) at patient's floor/unit and/or counseling patient: - Subjective Interval history: Ms. Andres was seen and evaluated lying in bed, awake and alert. Patient notes nausea has improved. However, notes loose stools since last night. She also states she is cold this AM and has multiple blankets currently. She states plan is still to return to [facility] emergency department for rehab at discharge. - Constitutional Vitals: Abnormal lab results RBC 2.37 M/mcL (3.82-4.97) L 03/04/18 04:08 Hgb 7.0 g/dL (11.5-15.4) L 03/04/18 04:08 Hct 23.1 % (35.3-44.9) L 03/04/18 04:08 MCHC 30.3 g/dL (31.6-35.5) L 03/04/18 04:08 RDW 16.6 % (11.5-14.5) H 03/04/18 04:08 Nucleated RBCs/100 WBC 0.2 /100 WBC (0) H 03/03/18 11:43 VBG pCO2 39 mmHg (41-51) L 03/04/18 04:21 VBG pO2 130 mmHg (25-50) H 03/04/18 04:21 Carbon Dioxide 22 mEq/L (23-29) L 03/04/18 08:20 Creatinine 4.04 mg/dL (0.60-1.20) H 03/04/18 08:20 Est GFR ( Amer) 13 (> 60) L 03/04/18 08:20 Est GFR (Non-Af Amer) 11 (> 60) L 03/04/18 08:20 BUN/Creatinine Ratio 5 (6-26) L 03/04/18 08:20 Glucose 179 mg/dL (70-105) H 03/04/18 08:20 POC Glucose 162 mg/dL (70-99) H 03/04/18 07:53 Calcium 8.1 mg/dL (8.6-10.3) L 03/04/18 08:20 Magnesium 1.5 mg/dL (1.6-2.6) L 03/03/18 06:20 Beta-Hydroxybutyric Acd > 2.00 mmol/L (0.02-0.27) H 03/03/18 06:20 - Head Head exam: Present: atraumatic, normal inspection - Eye Eye exam: Present: normal appearance, sclera anicteric - ENT ENT exam: Present: mucous membranes moist, normal external ear exam - Neck Neck exam: Present: full ROM, normal inspection - Respiratory Respiratory exam: Present: decreased breath sounds, CTAB. Absent: respiratory distress, wheezes - Cardiovascular Cardiovascular exam: Present: RRR, +S1, +S2 - GI/Abdominal GI/Abdominal exam: Present: normal bowel sounds, soft. Absent: distended, tenderness - Extremities Exam Extremities exam: Present: normal capillary refill. Absent: calf tenderness, pedal edema - Neurological Exam Neurological exam: Present: alert, oriented X3 - Psychiatric Psychiatric exam: Present: normal affect, normal mood - Skin Skin exam: Present: intact, warm. Absent: rash Palliative Quality Palliative Quality: Screen for Code Status: Yes, Screen for Goals of Care: Yes, Screen for Pain: Yes, If Pain Regimen Started, Initiate Bowel Regimen: NA, Screen for Nausea/Vomitting: Yes Code Status: 03/03/18 13:31 DNR [Resuscitation Status: Active] [RES] Routine Comment: Resuscitation Status: [id number] - Labs CBC & Chem 7: 03/04/18 04:08 03/04/18 08:20 Labs: Laboratory Results - last 24 hr 03/03/18 03/03/18 03/03/18 09:31 11:19 11:43 WBC 10.7 RBC 2.35 L Hgb 7.0 L Hct 22.5 L MCV 95.7 MCH 29.8 MCHC 31.1 L RDW 15.9 H Plt Count 209 MPV 10.4 Immature Gran % 0.4 Seg Neutrophils % 89.3 Lymphocytes % 3.7 Monocytes % 6.4 Eosinophils % 0.1 Basophils % 0.1 Neutrophils # 9.6 H Lymphocytes # 0.4 L Monocytes # 0.7 Eosinophils # 0.0 Basophils # 0.0 Nucleated RBCs/100 WBC 0.2 H VBG pH VBG pCO2 VBG pO2 VBG HCO3 Sodium Potassium Chloride Carbon Dioxide BUN Creatinine Est GFR ( Amer) Est GFR (Non-Af Amer) BUN/Creatinine Ratio Glucose POC Glucose 391 H 244 H Calculated Osmolality Lactic Acid Calcium 03/03/18 03/03/18 03/03/18 11:53 13:37 14:05 WBC RBC Hgb Hct MCV MCH MCHC RDW Plt Count MPV Immature Gran % Seg Neutrophils % Lymphocytes % Monocytes % Eosinophils % Basophils % Neutrophils # Lymphocytes # Monocytes # Eosinophils # Basophils # Nucleated RBCs/100 WBC VBG pH VBG pCO2 VBG pO2 VBG HCO3 Sodium 139 Potassium 3.0 L D Chloride 104 Carbon Dioxide 24 BUN 22 Creatinine 3.69 H Est GFR ( Amer) 15 L Est GFR (Non-Af Amer) 12 L BUN/Creatinine Ratio 6 Glucose 135 H POC Glucose 80 Calculated Osmolality 293 Lactic Acid 2.3 H Calcium 7.9 L 03/03/18 03/03/18 03/03/18 16:06 19:30 19:53 WBC RBC Hgb Hct MCV MCH MCHC RDW Plt Count MPV Immature Gran % Seg Neutrophils % Lymphocytes % Monocytes % Eosinophils % Basophils % Neutrophils # Lymphocytes # Monocytes # Eosinophils # Basophils # Nucleated RBCs/100 WBC VBG pH VBG pCO2 VBG pO2 VBG HCO3 Sodium 139 Potassium 4.0 D Chloride 105 Carbon Dioxide 24 BUN 22 Creatinine 3.81 H Est GFR ( Amer) 14 L Est GFR (Non-Af Amer) 12 L BUN/Creatinine Ratio 6 Glucose 136 H POC Glucose 90 Calculated Osmolality 293 Lactic Acid 0.7 Calcium 8.1 L 03/03/18 03/03/18 03/03/18 20:21 20:23 23:58 WBC RBC Hgb Hct MCV MCH MCHC RDW Plt Count MPV Immature Gran % Seg Neutrophils % Lymphocytes % Monocytes % Eosinophils % Basophils % Neutrophils # Lymphocytes # Monocytes # Eosinophils # Basophils # Nucleated RBCs/100 WBC VBG pH VBG pCO2 VBG pO2 VBG HCO3 Sodium Potassium Chloride Carbon Dioxide BUN Creatinine Est GFR ( Amer) Est GFR (Non-Af Amer) BUN/Creatinine Ratio Glucose POC Glucose 45 L* 42 L* 53 L Calculated Osmolality Lactic Acid Calcium 03/04/18 03/04/18 03/04/18 00:25 04:08 04:21 WBC 10.2 RBC 2.37 L Hgb 7.0 L Hct 23.1 L MCV 97.5 MCH 29.5 MCHC 30.3 L RDW 16.6 H Plt Count 206 MPV 9.9 Immature Gran % 0.4 Seg Neutrophils % 82.8 Lymphocytes % 7.8 Monocytes % 8.0 Eosinophils % 0.7 Basophils % 0.3 Neutrophils # 8.5 Lymphocytes # 0.8 Monocytes # 0.8 Eosinophils # 0.1 Basophils # 0.0 Nucleated RBCs/100 WBC VBG pH 7.42 VBG pCO2 39 L VBG pO2 130 H VBG HCO3 25 Sodium Potassium Chloride Carbon Dioxide BUN Creatinine Est GFR ( Amer) Est GFR (Non-Af Amer) BUN/Creatinine Ratio Glucose POC Glucose 111 H Calculated Osmolality Lactic Acid Calcium 03/04/18 03/04/18 03/04/18 04:23 07:53 08:20 WBC RBC Hgb Hct MCV MCH MCHC RDW Plt Count MPV Immature Gran % Seg Neutrophils % Lymphocytes % Monocytes % Eosinophils % Basophils % Neutrophils # Lymphocytes # Monocytes # Eosinophils # Basophils # Nucleated RBCs/100 WBC VBG pH VBG pCO2 VBG pO2 VBG HCO3 Sodium 140 Potassium 3.9 Chloride 107 Carbon Dioxide 22 L BUN 22 Creatinine 4.04 H Est GFR ( Amer) 13 L Est GFR (Non-Af Amer) 11 L BUN/Creatinine Ratio 5 L Glucose 179 H POC Glucose 86 162 H Calculated Osmolality 298 Lactic Acid Calcium 8.1 L Consult Discharge Plan - Plan Referrals: Tawana Quintero, SAFETY LAMP KEEPER [Primary Care Provider] - <Hai Saucedo - Last Filed: 03/04/18 09:54> Date of Encounter: 03/04/18 - Time Spent With Patient Total time spent is greater than 50% in coordination of care (as documented) at patient's floor/unit and/or counseling patient: - Constitutional Vitals: Abnormal lab results RBC 2.37 M/mcL (3.82-4.97) L 03/04/18 04:08 Hgb 7.0 g/dL (11.5-15.4) L 03/04/18 04:08 Hct 23.1 % (35.3-44.9) L 03/04/18 04:08 MCHC 30.3 g/dL (31.6-35.5) L 03/04/18 04:08 RDW 16.6 % (11.5-14.5) H 03/04/18 04:08 Nucleated RBCs/100 WBC 0.2 /100 WBC (0) H 03/03/18 11:43 VBG pCO2 39 mmHg (41-51) L 03/04/18 04:21 VBG pO2 130 mmHg (25-50) H 03/04/18 04:21 Carbon Dioxide 22 mEq/L (23-29) L 03/04/18 08:20 Creatinine 4.04 mg/dL (0.60-1.20) H 03/04/18 08:20 Est GFR ( Amer) 13 (> 60) L 03/04/18 08:20 Est GFR (Non-Af Amer) 11 (> 60) L 03/04/18 08:20 BUN/Creatinine Ratio 5 (6-26) L 03/04/18 08:20 Glucose 179 mg/dL (70-105) H 03/04/18 08:20 POC Glucose 162 mg/dL (70-99) H 03/04/18 07:53 Calcium 8.1 mg/dL (8.6-10.3) L 03/04/18 08:20 Magnesium 1.5 mg/dL (1.6-2.6) L 03/03/18 06:20 Beta-Hydroxybutyric Acd > 2.00 mmol/L (0.02-0.27) H 03/03/18 06:20 - Attending Attestation I examined this patient and my medical decision-making was reviewed with the Resident Physician. I agree with the documented findings, disposition and treatment plan as described except to the extent set forth below. Palliative Quality Code Status: 03/03/18 13:31 DNR [Resuscitation Status: Active] [RES] Routine Comment: Resuscitation Status: [id number] - Labs CBC & Chem 7: 03/04/18 04:08 03/04/18 08:20 Labs: Laboratory Results - last 24 hr 03/03/18 03/03/18 03/03/18 09:31 11:19 11:43 WBC 10.7 RBC 2.35 L Hgb 7.0 L Hct 22.5 L MCV 95.7 MCH 29.8 MCHC 31.1 L RDW 15.9 H Plt Count 209 MPV 10.4 Immature Gran % 0.4 Seg Neutrophils % 89.3 Lymphocytes % 3.7 Monocytes % 6.4 Eosinophils % 0.1 Basophils % 0.1 Neutrophils # 9.6 H Lymphocytes # 0.4 L Monocytes # 0.7 Eosinophils # 0.0 Basophils # 0.0 Nucleated RBCs/100 WBC 0.2 H VBG pH VBG pCO2 VBG pO2 VBG HCO3 Sodium Potassium Chloride Carbon Dioxide BUN Creatinine Est GFR ( Amer) Est GFR (Non-Af Amer) BUN/Creatinine Ratio Glucose POC Glucose 391 H 244 H Calculated Osmolality Lactic Acid Calcium 03/03/18 03/03/18 03/03/18 11:53 13:37 14:05 WBC RBC Hgb Hct MCV MCH MCHC RDW Plt Count MPV Immature Gran % Seg Neutrophils % Lymphocytes % Monocytes % Eosinophils % Basophils % Neutrophils # Lymphocytes # Monocytes # Eosinophils # Basophils # Nucleated RBCs/100 WBC VBG pH VBG pCO2 VBG pO2 VBG HCO3 Sodium 139 Potassium 3.0 L D Chloride 104 Carbon Dioxide 24 BUN 22 Creatinine 3.69 H Est GFR ( Amer) 15 L Est GFR (Non-Af Amer) 12 L BUN/Creatinine Ratio 6 Glucose 135 H POC Glucose 80 Calculated Osmolality 293 Lactic Acid 2.3 H Calcium 7.9 L 03/03/18 03/03/18 03/03/18 16:06 19:30 19:53 WBC RBC Hgb Hct MCV MCH MCHC RDW Plt Count MPV Immature Gran % Seg Neutrophils % Lymphocytes % Monocytes % Eosinophils % Basophils % Neutrophils # Lymphocytes # Monocytes # Eosinophils # Basophils # Nucleated RBCs/100 WBC VBG pH VBG pCO2 VBG pO2 VBG HCO3 Sodium 139 Potassium 4.0 D Chloride 105 Carbon Dioxide 24 BUN 22 Creatinine 3.81 H Est GFR ( Amer) 14 L Est GFR (Non-Af Amer) 12 L BUN/Creatinine Ratio 6 Glucose 136 H POC Glucose 90 Calculated Osmolality 293 Lactic Acid 0.7 Calcium 8.1 L 03/03/18 03/03/18 03/03/18 20:21 20:23 23:58 WBC RBC Hgb Hct MCV MCH MCHC RDW Plt Count MPV Immature Gran % Seg Neutrophils % Lymphocytes % Monocytes % Eosinophils % Basophils % Neutrophils # Lymphocytes # Monocytes # Eosinophils # Basophils # Nucleated RBCs/100 WBC VBG pH VBG pCO2 VBG pO2 VBG HCO3 Sodium Potassium Chloride Carbon Dioxide BUN Creatinine Est GFR ( Amer) Est GFR (Non-Af Amer) BUN/Creatinine Ratio Glucose POC Glucose 45 L* 42 L* 53 L Calculated Osmolality Lactic Acid Calcium 03/04/18 03/04/18 03/04/18 00:25 04:08 04:21 WBC 10.2 RBC 2.37 L Hgb 7.0 L Hct 23.1 L MCV 97.5 MCH 29.5 MCHC 30.3 L RDW 16.6 H Plt Count 206 MPV 9.9 Immature Gran % 0.4 Seg Neutrophils % 82.8 Lymphocytes % 7.8 Monocytes % 8.0 Eosinophils % 0.7 Basophils % 0.3 Neutrophils # 8.5 Lymphocytes # 0.8 Monocytes # 0.8 Eosinophils # 0.1 Basophils # 0.0 Nucleated RBCs/100 WBC VBG pH 7.42 VBG pCO2 39 L VBG pO2 130 H VBG HCO3 25 Sodium Potassium Chloride Carbon Dioxide BUN Creatinine Est GFR ( Amer) Est GFR (Non-Af Amer) BUN/Creatinine Ratio Glucose POC Glucose 111 H Calculated Osmolality Lactic Acid Calcium 03/04/18 03/04/18 03/04/18 04:23 07:53 08:20 WBC RBC Hgb Hct MCV MCH MCHC RDW Plt Count MPV Immature Gran % Seg Neutrophils % Lymphocytes % Monocytes % Eosinophils % Basophils % Neutrophils # Lymphocytes # Monocytes # Eosinophils # Basophils # Nucleated RBCs/100 WBC VBG pH VBG pCO2 VBG pO2 VBG HCO3 Sodium 140 Potassium 3.9 Chloride 107 Carbon Dioxide 22 L BUN 22 Creatinine 4.04 H Est GFR ( Amer) 13 L Est GFR (Non-Af Amer) 11 L BUN/Creatinine Ratio 5 L Glucose 179 H POC Glucose 86 162 H Calculated Osmolality 298 Lactic Acid Calcium 8.1 L
[2018-03-04] MEDS ORDERED: 0.9 % Sodium Chloride 1,000 ML ONE (10:52)
--- NOTE | 2018-03-04 11:04 | Pulmonology Progress Note ---
Addendum entered and electronically signed by Young Vick DO 03/04/18 12: 23: Addendum to A/P Anemia Likely secondary to chronic kidney disease Hgb 7.0, appears to be near baseline No evidence of acute blood loss at this time Continue to monitor H/H, consider transfusion is Hgb <7.0 Original Note: <Young Vick - Last Filed: 03/04/18 11:00> Date of Encounter: 03/04/18 Time of Encounter: 08:40 Assessment and Plan (1) DKA (diabetic ketoacidoses) Current Visit: Yes Status: Acute The patient's DKA has resolved, gap is closed Blood glucose has returned to appropriate level for critical care Started basal and SSI yesterday We will transfer the patient to telemetry for further management 03/03 Diabetic ketoacidosis The patient presents with positive ketones, elevated anion gap of 26, glucose 521 Symptoms consistent with DKA including Nausea and Vomiting Admits to uncontrolled elevated blood glucose at home since prior admission Started the patient on insulin drip, gave 3L NS bolus, monitored q4h BMP Gap has now closed, patient is feeling better than she was Qualifiers: Diabetes mellitus type: type 1 Diabetes mellitus complication detail: without coma Qualified Code(s): E10.10 - Type 1 diabetes mellitus with ketoacidosis without coma (2) End stage kidney disease Current Visit: Yes Status: Chronic End-stage renal disease on HD MWF Consult to Nephrology for management (3) Nausea and vomiting Current Visit: Yes Status: Acute Largely resolved following resolution of DKA Zofran PRN for nausea Qualifiers: Vomiting type: unspecified Vomiting Intractability: non-intractable Qualified Code(s): R11.2 - Nausea with vomiting, unspecified (4) Coronary artery disease Current Visit: Yes Status: Chronic CAD, hx of NSTEMI about one month ago TTE 01/27/18 shows LVEF 55%, severe pulmonary hypertension Declined LHC on prior visit, still remains unsure of willingness for LHC Treated with ASA, Crestor, lopressor. Allergy to HEMANTH and ARB Cardiology is consulted for management Qualifiers: Coronary Disease-Associated Artery/Lesion type: bypass graft [place] vs. transplanted heart: [place] heart Associated angina: without angina Qualified Code(s): I25.810 - Atherosclerosis of coronary artery bypass graft(s) without angina pectoris (5) Hyperlipidemia Current Visit: No Status: Chronic We will continue crestor Qualifiers: Hyperlipidemia type: mixed hyperlipidemia Qualified Code(s): E78.2 - Mixed hyperlipidemia (6) DVT prophylaxis Current Visit: No Status: Acute SQ Heparin Subjective Principal diagnosis: DKA Interval history: The patient is resting comfortably in bed at time of examination. She says that she's feeling significantly improved, has increased appetite, and is no longer experiencing as much nausea. Objective PUL Vital signs: Last Vital Signs Temp 98.8 F 03/04/18 08:00 Pulse 76 03/04/18 08:00 Resp 19 03/04/18 07:45 BP 143/55 03/04/18 07:45 Pulse Ox 96 03/04/18 07:45 Gen: Vitals noted. No acute distress. AAOx3 HEENT: PERRL/EOMI, oropharynx clear, Normocephalic, atraumatic Neck: Supple. No adenopathy. Cardiac: RRR, no murmur, +S1/S2 Pulmonary: CTAB with right diminished base Abdomen: soft, nontender, BS noted, no guarding Back: Nontender throughout. MSK: ROM intact, no joint swelling noted Extremities: no BLE edema, nontender calf, no cyanosis or clubbing Neuro: A&Ox3, moves all extremities, no focal deficits Psych: Appropriate mood and behavior Results - Laboratory Findings CBC and BMP: 03/04/18 04:08 03/04/18 08:20 Abnormal lab findings: Abnormal lab results RBC 2.37 M/mcL (3.82-4.97) L 03/04/18 04:08 Hgb 7.0 g/dL (11.5-15.4) L 03/04/18 04:08 Hct 23.1 % (35.3-44.9) L 03/04/18 04:08 MCHC 30.3 g/dL (31.6-35.5) L 03/04/18 04:08 RDW 16.6 % (11.5-14.5) H 03/04/18 04:08 Nucleated RBCs/100 WBC 0.2 /100 WBC (0) H 03/03/18 11:43 VBG pCO2 39 mmHg (41-51) L 03/04/18 04:21 VBG pO2 130 mmHg (25-50) H 03/04/18 04:21 Carbon Dioxide 22 mEq/L (23-29) L 03/04/18 08:20 Creatinine 4.04 mg/dL (0.60-1.20) H 03/04/18 08:20 Est GFR ( Amer) 13 (> 60) L 03/04/18 08:20 Est GFR (Non-Af Amer) 11 (> 60) L 03/04/18 08:20 BUN/Creatinine Ratio 5 (6-26) L 03/04/18 08:20 Glucose 179 mg/dL (70-105) H 03/04/18 08:20 POC Glucose 162 mg/dL (70-99) H 03/04/18 07:53 Calcium 8.1 mg/dL (8.6-10.3) L 03/04/18 08:20 Magnesium 1.5 mg/dL (1.6-2.6) L 03/03/18 06:20 Beta-Hydroxybutyric Acd > 2.00 mmol/L (0.02-0.27) H 03/03/18 06:20 - Clinical Findings Intake & Output: Intake & Output 03/03/18 03/04/18 03/04/18 23:59 07:59 15:59 Intake Total 300 / 300 0 / 0 Balance 300 / 300 0 / 0 Weight 62.4 kg Consult Discharge Plan - Plan Referrals: Tawana Quintero, COMPENSATION AND BENEFITS ADVISOR [Primary Care Provider] - <Claire Gallegos - Last Filed: 03/04/18 22:48> Date of Encounter: 03/04/18 Objective PUL Vital signs: Last Vital Signs Temp 98.2 F 03/04/18 20:54 Pulse 93 03/04/18 20:40 Resp 20 03/04/18 18:39 BP 123/58 03/04/18 18:39 Pulse Ox 97 03/04/18 18:39 Results - Laboratory Findings CBC and BMP: 03/04/18 04:08 03/04/18 08:20 Abnormal lab findings: Abnormal lab results RBC 2.37 M/mcL (3.82-4.97) L 03/04/18 04:08 Hgb 7.0 g/dL (11.5-15.4) L 03/04/18 04:08 Hct 23.1 % (35.3-44.9) L 03/04/18 04:08 MCHC 30.3 g/dL (31.6-35.5) L 03/04/18 04:08 RDW 16.6 % (11.5-14.5) H 03/04/18 04:08 Nucleated RBCs/100 WBC 0.2 /100 WBC (0) H 03/03/18 11:43 VBG pCO2 39 mmHg (41-51) L 03/04/18 04:21 VBG pO2 130 mmHg (25-50) H 03/04/18 04:21 Carbon Dioxide 22 mEq/L (23-29) L 03/04/18 08:20 Creatinine 4.04 mg/dL (0.60-1.20) H 03/04/18 08:20 Est GFR ( Amer) 13 (> 60) L 03/04/18 08:20 Est GFR (Non-Af Amer) 11 (> 60) L 03/04/18 08:20 BUN/Creatinine Ratio 5 (6-26) L 03/04/18 08:20 Glucose 179 mg/dL (70-105) H 03/04/18 08:20 POC Glucose 395 mg/dL (70-99) H 03/04/18 20:29 Hemoglobin A1c 8.0 % (-5.6) H 03/04/18 01:49 Calcium 8.1 mg/dL (8.6-10.3) L 03/04/18 08:20 Magnesium 1.5 mg/dL (1.6-2.6) L 03/03/18 06:20 Beta-Hydroxybutyric Acd > 2.00 mmol/L (0.02-0.27) H 03/03/18 06:20 - Clinical Findings Intake & Output: Intake & Output 03/04/18 03/04/18 03/04/18 07:59 15:59 23:59 Intake Total 0 / 0 840 / 840 Output Total 300 / 300 2600 / 2600 Balance 0 / 0 540 / 540 -2600 / -2600 Weight 62.4 kg - Attending Attestation - Attending Attestation I saw and evaluated this patient and my medical decision-making was reviewed with the Resident Physician. I agree with the documented findings, disposition and treatment plan as described except to the extent set forth below. We independently had [id number] contact with the patient. Patient seen and examined at bedside Labs, radiology, chart personally reviewed. Management was reviewed during multidisciplinary critical care rounds. SHANK PINNER:Patient is conscious oriented x 3 Pulm: Patient has acceptable oxygenation and ventilation . CXR shows bilateral pleural effusion secondary to diastolic dysfunction and heart failure with renal failure Cards: Patient is hemodynamically stable followed by cardiology FEN-GI: Patient has some gastroenteritis symptoms according to patient getting better , No nausea patient is eating well Renal:CKD on Dialysis . Nephrology following . DKA now AG x 2 ID: No active infections issues Heme/Onc: Chronic Anemia most likely due to chronic kidney disease Endo: Glucose Monitored Integ/MSK: Skin Care per routine ICU Nursing Protocol to prevent ulcers. Lines: All lines examined without evidence of infection : Dispo: Patient can be transferred to Medical telemetry . CODE:[id number]
--- NOTE | 2018-03-04 11:27 | Cardiology Progress Note ---
Date of Encounter: 03/04/18 Time of Encounter: 10:00 Assessment and Plan (1) Coronary artery disease Current Visit: Yes Status: Chronic Per Cardiology: Hx of PCI in 2007, CABG in 2010-- patient well known to me. Cardiology consulted for EKG changes. Mild diffuse changes noted, unclear significance. Troponin negative. Recently hospitalized for NSTEMI 01/2018 with peak troponin 8.76. Did not undergo LHC due to renal insufficiency and being unable to lay flat. Plan was to re-evaluate as outpt. Pt is now on dialysis, which she hopes is temporary (of note, when I last saw her she had no plans to ever go on HD). TTE 01/2018 EF 55%, mild-moderate MR, moderate-severe TR, severe phtn. Pt is DNR- CCA-DNI. She is unsure if she would be willing to revoke code status for 24 hours for LHC. She is also hesitant to proceed with LHC due to risk of SAMSON, causing dialysis to be permanent. Patient discussed with Nephrology, unfortunately there is already concern for HD possibly being potentially permanent. We discussed potential need for LHC and would be ok to perform LHC at this juncture from Nephrology standpoint if patient decides to proceed. I had a lengthy discussion with patient, patient currently desires to contemplate and discuss with family. We will reevaluate tomorrow and discuss potential catheterization Tuesday if she decides to proceed and willing to temporarily hold DNR status. On ASA, Statin, BB. Qualifiers: Coronary Disease-Associated Artery/Lesion type: bypass graft [place] vs. transplanted heart: [place] heart Associated angina: without angina Qualified Code(s): I25.810 - Atherosclerosis of coronary artery bypass graft(s) without angina pectoris (2) End stage kidney disease Current Visit: Yes Status: Chronic Per Cardiology: For HD today. Discussion w patient/family: The assessment and plan as outlined above was discussed with the patient who expressed understanding and agreement. All questions were answered. Thank you for involving us in the care of your patient. Please call with any questions. Subjective Principal diagnosis: DKA Interval history: Patient currently denies any chest pain or palpitations. Reports mild shortness of breath at rest. Reports pending dialysis today. Objective Vital Signs, Last 4 Hours Temp Pulse Resp BP Pulse Ox 03/04/18 10:05 87 20 155/53 96 03/04/18 09:00 98 20 141/62 96 03/04/18 08:00 98.8 F 76 03/04/18 07:45 76 19 143/55 96 General: Conversant, No Apparent Distress HEENT: Atraumatic, Normocephaly Cardiac: Reg Rate and Rhythm, Normal S1 and S2, No Murmur Lungs: Normal Breath Sounds, Other (Mild conversational dyspnea noted, decreased breath sounds bilateral bases) Neuro: Alert and responsive, No focal deficits noted Abdomen: Soft, Non-Tender Skin: No rashes noted on visualized skin Extremities: No Edema, Normal Pulses Results 03/04/18 04:08 03/04/18 08:20 Lab Results Laboratory Tests 03/03/18 03/04/18 03/04/18 06:20 04:08 08:20 Hgb 7.0 L Hct 23.1 L Plt Count 206 Creatinine 4.04 H BUN/Creatinine Ratio 5 L Magnesium 1.5 L Troponin I 0.03 ITS Impressions Abdomen/Pelvis CT 03/03/18 06:21 IMPRESSION: 1. No acute intra-abdominal or intrapelvic process is identified. Specifically, no evidence of obstructive uropathy. 2. Moderate right-sided pleural effusion and small left-sided pleural effusion are seen as on previous PET-CT images from February 2017. The etiology is uncertain. There is associated bibasilar atelectasis as on the previous exam. 3. Atherosclerotic vascular calcifications noted. D/ / Patric Cooper MD / Patric Cooper MD Interpreting Provider: Patric Cooper MD Chest X-Ray 03/03/18 06:21 IMPRESSION: Stable chest. D/ / Patric Cooper MD / Patirc Cooper MD Interpreting Provider: Patric Cooper MD Intake & Output 03/01/18 03/02/18 03/03/18 03/04/18 23:59 23:59 23:59 23:59 Intake Total 2371 / 2371 0 / 0 Balance 2370 0 / 0 Weight 54.431 kg 62.4 kg Active Medications Aspirin (Aspirin) 81 mg PO DAILY [place] Stop: 09/03/18 09:01 Last Admin: 03/04/18 11:11 Dose: 81 mg Dextrose/Water (Dextrose 50% (Syg)) 50 ml IVP ONCE PRN PRN Reason: Hypoglycemia Stop: 09/02/18 06:22 Dextrose/Water (Dextrose 50% (Syg)) 25 ml IVP Q15MIN PRN PRN Reason: Hypoglycemia Stop: 09/02/18 11:53 Last Admin: 03/04/18 00:03 Dose: 25 ml Glucagon (Glucagen) 1 mg IM ONCE PRN PRN Reason: Hypoglycemia Stop: 09/02/18 14:14 Heparin Sodium (Porcine) (Heparin) 5,000 unit SQ Q12HCO [place] Stop: 09/02/18 18:01 Last Admin: 03/04/18 06:30 Dose: 5,000 unit Dextrose/Sodium Chloride (D5% And 0.45% Nacl 1000 Ml Bag) 1,000 mls @ 250 mls/ hr IVC .Q4H PRN PRN Reason: See comments Stop: 09/02/18 11:53 Last Infusion: 03/03/18 14:56 Dose: Infused Sodium Chloride (0.9 % Sodium Chloride) 250 mls @ 937.5 mls/hr IVC .Q16M PRN PRN Reason: Hypotension Stop: 09/03/18 08:01 Insulin Detemir (Levemir) 14 unit 0.25 unit/kg (14 unit) SQ HS [facility] Stop: 09/02/18 21:01 Last Admin: 03/03/18 21:56 Dose: Not Given Insulin Human Lispro (Humalog) 0 units SQ TIDAC [facility] PRN Reason: Protocol Stop: 09/02/18 16:31 Last Admin: 03/04/18 07:45 Dose: Not Given Insulin Human Lispro (Humalog) 0 units SQ HS [facility] PRN Reason: Protocol Stop: 09/02/18 21:01 Last Admin: 03/03/18 21:55 Dose: Not Given Lorazepam (Ativan) 0.5 mg IVP Q4H PRN PRN Reason: Anxiety Stop: 09/02/18 13:46 Last Admin: 03/03/18 14:52 Dose: 0.5 mg Metoprolol Tartrate (Lopressor) 12.5 mg PO BID [place] Stop: 09/02/18 21:01 Last Admin: 03/04/18 11:12 Dose: 12.5 mg Naloxone HCl (Narcan) 0.4 mg IVP Q2MIN PRN PRN Reason: SEE COMMENTS Stop: 09/02/18 11:44 Ondansetron HCl (Zofran) 4 mg IVP Q6HR PRN; Protocol PRN Reason: nausea/vomit Stop: 09/02/18 13:34 Last Admin: 03/03/18 16:23 Dose: 4 mg Rosuvastatin Calcium (Crestor) 40 mg PO HS [place] Stop: 09/02/18 21:01 Last Admin: 03/03/18 20:19 Dose: 40 mg Simethicone (Simethicone) 80 mg PO QID PRN PRN Reason: Gas pain Stop: 09/02/18 13:32 Last Admin: 03/03/18 14:52 Dose: 80 mg Consult Discharge Plan - Plan Referrals: Tawana Quintero, AIRCRAFT INSTRUMENT TESTER [Primary Care Provider] -
[2018-03-04 11:52] LABS: Estimated Average Glucose 183 mg/dl
[2018-03-04] MEDS ORDERED: Ondansetron 4 MG/2 ML VIAL IVP PRN (12:28)
[2018-03-04] MEDS ORDERED: Naloxone 0.4 MG/ML INJ IVP PRN (12:28)
[2018-03-04] MEDS ORDERED: Benzonatate 100 MG CAPSULE PO PRN (12:28)
[2018-03-04] MEDS ORDERED: Simethicone 80 MG TAB.CHEW PO PRN (12:28)
[2018-03-04] MEDS ORDERED: *HR* Dextrose 50 % in Water (Syg) 50 ML SYRINGE IVP PRN (12:28)
--- NOTE | 2018-03-04 12:33 | Nephrology Progress Note ---
Date of Encounter: 03/04/18 Time of Encounter: 09:05 - Assessment and Plan (1) End stage kidney disease Status: Chronic ESRD and in monitoring her SCr the last three days, her SCr rises steadily, which suggests that she is no where close to renal recovery. I suspect she may need HD chronically with a minimal chance of weaning off HD. Discussed this with Cardiology since the pt's cardiac issues may suggest a need for LHC. Since she is unlikely, I suspect for renal recovery, it seems, reasonable to proceed with a LHC if indicated. I've ordered HD today (Tuesday), since she missed HD on Tuesday. Next HD after today will be on Tuesday. Subjective Principal diagnosis: DKA Interval history: Pt was s/e and she did not affirm N/V/D or new complaints to me. Objective - Vital Signs Vital signs: Vital Signs Temp Pulse Resp BP Pulse Ox 03/04/18 11:22 88 19 160/63 95 03/04/18 10:05 87 20 155/53 96 03/04/18 09:00 98 20 141/62 96 03/04/18 08:00 98.8 F 76 03/04/18 07:45 76 19 143/55 96 03/04/18 06:00 85 22 146/61 99 03/04/18 05:00 75 21 124/52 97 03/04/18 04:34 98.1 F 03/04/18 04:00 79 20 142/55 97 03/04/18 03:00 75 22 129/40 98 03/04/18 02:00 81 18 139/56 98 03/04/18 01:00 75 18 125/50 93 03/04/18 00:55 98.0 F 03/03/18 23:55 83 21 140/63 97 03/03/18 23:00 80 21 141/52 96 03/03/18 22:00 84 18 118/38 96 03/03/18 21:00 85 21 134/55 98 03/03/18 20:42 97.9 F 03/03/18 20:00 83 20 136/56 96 03/03/18 19:33 87 03/03/18 19:00 97.9 F 88 18 128/69 97 03/03/18 18:00 84 22 123/54 94 03/03/18 17:00 88 18 141/62 91 03/03/18 16:00 90 20 119/58 97 03/03/18 15:00 89 22 119/58 94 03/03/18 14:08 91 03/03/18 14:00 91 18 115/59 99 Intake and Output 03/03/18 03/04/18 03/04/18 23:59 07:59 15:59 Intake Total 300 / 300 0 / 0 Balance 300 / 300 0 / 0 Intake: Oral 300 / 300 0 / 0 Other: Stool Size Small Stool Consistency soft Stool Color Brown # Bowel Movements 1 Weight 62.4 kg Blood Glucose* 53 89 162 Patient Weight 03/04/18 23:59 Weight 62.4 kg - General Appearance General appearance: Present: sedated on ventilator, fatigue, frail EENT: Present: PERRL, mucous membranes moist Neck: Present: supple Respiratory: Present: clear Cardiology: Present: normal S1, normal S2 Dialysis Vascular Access: Venous Catheter (Permacath appeared without exudates or erythema) Gastrointestinal: Present: normoactive bowel sounds, no guarding Integumentary: Present: warm and dry Musculoskeletal: Present: no erythema, no cyanosis Psychiatric: Present: mood/affect appropriate, cooperative - Lab 03/06/18 03:45 03/06/18 03:45 Most recent lab results Calcium 8.1 mg/dL (8.6-10.3) L 03/04/18 08:20 Magnesium 1.5 mg/dL (1.6-2.6) L 03/03/18 06:20 Consult Discharge Plan - Plan Referrals: Tawana Quintero CANE STRIPPER [Primary Care Provider] -
[2018-03-04] MEDS ORDERED: Insulin LISPRO 300 UNITS/3 ML VIAL SQ ONE (12:39)
[2018-03-04] MEDS ORDERED: Insulin DETEMIR 100 UNIT/ML X5UNITS SQ SCH (21:00)
[2018-03-04] MEDS ORDERED: Insulin LISPRO 300 UNITS/3 ML VIAL SQ SCH (21:00)
[2018-03-04] MEDS ORDERED: NON-FORMULARY MEDICATION 1 EACH EACH (Atorvastatin Calcium [Atorvastatin Calcium] 80 MG) PO SCH (21:00)
[2018-03-05] MEDS: *HR* LORazepam 2 MG/ML VIAL IVP PRN ×2 (01:27→22:11)
[2018-03-05] MEDS: *HR* Heparin 5,000 UNIT/ML VIAL SQ SCH ×2 (05:29→17:14)
[2018-03-05] MEDS ORDERED: Insulin LISPRO 300 UNITS/3 ML VIAL SQ SCH (07:08)
[2018-03-05] MEDS: Insulin LISPRO 300 UNITS/3 ML VIAL SQ SCH ×3 (07:18→17:13)
--- NOTE | 2018-03-05 07:27 | Cardiology Progress Note ---
Date of Encounter: 03/05/18 Time of Encounter: 07:30 Assessment and Plan (1) Coronary artery disease Current Visit: Yes Status: Chronic Per Cardiology: Hx of PCI in 2007, CABG in 2010-- patient well known to me. Cardiology consulted for EKG changes. Mild diffuse changes noted, unclear significance. Troponin negative. Recently hospitalized for NSTEMI 01/2018 with peak troponin 8.76. Did not undergo LHC due to renal insufficiency and being unable to lay flat. Plan was to re-evaluate as outpt. Pt is now on dialysis, which she hopes is temporary (of note, when I last saw her she had no plans to ever go on HD). TTE 01/2018 EF 55%, mild-moderate MR, moderate-severe TR, severe phtn. Pt is DNR- CCA-DNI. She is unsure if she would be willing to revoke code status for 24 hours for LHC. She is also hesitant to proceed with LHC due to risk of SAMSON, causing dialysis to be permanent. Patient discussed with Nephrology, unfortunately there is already concern for HD possibly being potentially permanent. We discussed potential need for LHC and would be ok to perform LHC at this juncture from Nephrology standpoint if patient decides to proceed. I discussed with Dr. Shen, patient currently remains stable. Discussed with patient's family member (Lynda) at patient request. Plans are for no LHC at this juncture. On ASA, Statin, BB. Will s/o, re-consult, f/u arranged. Qualifiers: Coronary Disease-Associated Artery/Lesion type: bypass graft [place] vs. transplanted heart: [place] heart Associated angina: without angina Qualified Code(s): I25.810 - Atherosclerosis of coronary artery bypass graft(s) without angina pectoris (2) End stage kidney disease Current Visit: Yes Status: Chronic Per Cardiology: Following with Nephrology. Discussion w patient/family: The assessment and plan as outlined above was discussed with the patient who expressed understanding and agreement. All questions were answered. Thank you for involving us in the care of your patient. Please call with any questions. Subjective Principal diagnosis: DKA, Hx CAD Interval history: Patient currently denies any chest pain or palpitations. Reports mild shortness of breath at rest, but improved. Slept better. Reports mild dry cough and concerns with ability to lay flat. Objective Vital Signs, Last 4 Hours Temp Pulse Resp BP Pulse Ox 03/05/18 07:10 89 19 136/42 96 03/05/18 03:48 99.2 F 76 18 144/59 95 03/05/18 03:43 75 General: Conversant, No Apparent Distress HEENT: Atraumatic, Normocephaly, Mucus Membranes Moist Neck: No JVD, Normal carotid pulses Cardiac: Reg Rate and Rhythm, Normal S1 and S2, No Murmur Lungs: Normal Breath Sounds, No Wheeze, Rales, Rhonchi Neuro: Alert and responsive, No focal deficits noted Abdomen: Soft, Non-Tender Skin: No rashes noted on visualized skin Musculoskeletal: No Chest Wall Tenderness Extremities: No Clubbing, No Cyanosis, No Edema, Normal Pulses Results 03/04/18 04:08 03/04/18 08:20 Lab Results Consult Discharge Plan - Plan Referrals: Tawana Quintero CNP [Primary Care Provider] -
[2018-03-05] MEDS: Aspirin 81 MG TAB.CHEW PO SCH (08:14)
--- NOTE | 2018-03-05 08:24 | Palliative Progress Note ---
<Narciso Boyer - Last Filed: 03/05/18 08:20> Date of Encounter: 03/05/18 Time of Encounter: 07:15 - Assessment and plan (1) DKA (diabetic ketoacidoses) Current Visit: Yes Status: Acute Assessment and plan: Diabetic ketoacidosis Patient presented with positive ketones, elevated anion gap of 26, glucose 521 Symptoms consistent with DKA including Nausea and Vomiting Admits to uncontrolled elevated blood glucose at home since prior admission Patient was started on insulin drip, given 3L NS bolus, and monitored q4h with BMP Anion gap was closed, basal insulin with SSI was initiated. Event this morning of hypoglycemia with BG of 29. Patient seen byself shortly after event, patient denies any acute complaints, was awake, alert, and oriented. Management per ICU/primary service. Qualifiers: Diabetes mellitus type: type 1 Diabetes mellitus complication detail: without coma Qualified Code(s): E10.10 - Type 1 diabetes mellitus with ketoacidosis without coma (2) End stage kidney disease Current Visit: Yes Status: Chronic Assessment and plan: Management per Nephrology, net HD planned for Tuesday. (3) Nausea and vomiting Current Visit: Yes Status: Resolved Assessment and plan: Resolved, patient notes nausea has since improved. Zofran is ordered PRN. Qualifiers: Vomiting type: unspecified Vomiting Intractability: non-intractable Qualified Code(s): R11.2 - Nausea with vomiting, unspecified (4) Abdominal gas pain Current Visit: Yes Status: Acute Assessment and plan: Improved, patient denies pain on exam. (5) Anxiety Current Visit: Yes Status: Acute Assessment and plan: Patient's anxiety stable today, PRN ativan ordered. Patient appeared calm and collected during my examination and did not express concerns about anxiety. (6) Goals of care, counseling/discussion Current Visit: No Status: Acute Assessment and plan: Previously patient established code status of DNR CCA/DNI. Evaluated goals of care and offered alternative options; patients wishes to continue aggressive treatment with the intent to return to [facility] for rehab at discharge which she confirmed today. We did not discuss hospice further as she previously reported to the palliative team that she is a very logical women and knows that she will be able to identify the time when she wants to stop Dialysis and transfer to hospice. MPOA not present today, but yesterday was noted to be in agreement to continue aggressive treatment at this time. Patient requested MPOA to keep her son informed of status of care at this time. Palliative will continue to follow. (7) Coronary artery disease Current Visit: Yes Status: Chronic Assessment and plan: Cardiology following. Recommending LHC. Nursing has stated that patient would not pursue treatment even if she decided to proceed with LHC. Will allow Cardiology to discuss this further. Qualifiers: Coronary Disease-Associated Artery/Lesion type: bypass graft [place] vs. transplanted heart: [place] heart Associated angina: without angina Qualified Code(s): I25.810 - Atherosclerosis of coronary artery bypass graft(s) without angina pectoris - Time Spent With Patient Total time spent is greater than 50% in coordination of care (as documented) at patient's floor/unit and/or counseling patient: - Subjective Interval history: Ms. Andres was seen and evaluated lying in bed, awake and alert. Patient notes nausea has not returned, she also notes that the loose stools from yesterday continue to improve and denies any BMs this morning. Patient's nurse is present in room and notes that Ms. Andres did have a BG of 29 this AM at which time she was awake and alert, treated with D5. Patient has her own blanket this morning and notes that she is not as cold as she was yesterday. She still plans to return to [facility] at discharge. Per ICU service, patient likely to transfer to the floor today. - Constitutional Vitals: Abnormal lab results RBC 2.37 M/mcL (3.82-4.97) L 03/04/18 04:08 Hgb 7.0 g/dL (11.5-15.4) L 03/04/18 04:08 Hct 23.1 % (35.3-44.9) L 03/04/18 04:08 MCHC 30.3 g/dL (31.6-35.5) L 03/04/18 04:08 RDW 16.6 % (11.5-14.5) H 03/04/18 04:08 Nucleated RBCs/100 WBC 0.2 /100 WBC (0) H 03/03/18 11:43 VBG pCO2 39 mmHg (41-51) L 03/04/18 04:21 VBG pO2 130 mmHg (25-50) H 03/04/18 04:21 Carbon Dioxide 22 mEq/L (23-29) L 03/04/18 08:20 Creatinine 4.04 mg/dL (0.60-1.20) H 03/04/18 08:20 Est GFR ( Amer) 13 (> 60) L 03/04/18 08:20 Est GFR (Non-Af Amer) 11 (> 60) L 03/04/18 08:20 BUN/Creatinine Ratio 5 (6-26) L 03/04/18 08:20 Glucose 179 mg/dL (70-105) H 03/04/18 08:20 POC Glucose 126 mg/dL (70-99) H 03/05/18 07:38 Hemoglobin A1c 8.0 % (-5.6) H 03/04/18 01:49 Calcium 8.1 mg/dL (8.6-10.3) L 03/04/18 08:20 Magnesium 1.5 mg/dL (1.6-2.6) L 03/03/18 06:20 Beta-Hydroxybutyric Acd > 2.00 mmol/L (0.02-0.27) H 03/03/18 06:20 General appearance: Present: cooperative, no acute distress - Head Head exam: Present: atraumatic, normal inspection - Eye Eye exam: Present: normal appearance, sclera anicteric - ENT ENT exam: Present: mucous membranes moist - Neck Neck exam: Present: full ROM, normal inspection - Respiratory Respiratory exam: Present: decreased breath sounds, CTAB. Absent: respiratory distress, stridor, wheezes - Cardiovascular Cardiovascular exam: Present: RRR, +S1, +S2. Absent: diastolic murmur, systolic murmur - GI/Abdominal GI/Abdominal exam: Present: normal bowel sounds, soft. Absent: distended, guarding, tenderness - Extremities Exam Extremities exam: Present: normal capillary refill, normal inspection. Absent: calf tenderness, pedal edema, tenderness - Neurological Exam Neurological exam: Present: alert, oriented X3, no focal deficits. Absent: facial droop, speech deficit - Psychiatric Psychiatric exam: Present: normal affect, normal mood - Skin Skin exam: Present: intact, warm. Absent: rash Palliative Quality Palliative Quality: Screen for Code Status: Yes, Screen for Goals of Care: Yes, Screen for Pain: Yes, If Pain Regimen Started, Initiate Bowel Regimen: NA, Screen for Nausea/Vomitting: Yes Code Status: 03/03/18 13:31 DNR [Resuscitation Status: Active] [RES] Routine Comment: Resuscitation Status: [id number] - Labs CBC & Chem 7: 03/04/18 04:08 03/04/18 08:20 Labs: Laboratory Results - last 24 hr 03/04/18 03/04/18 03/04/18 01:49 08:20 16:07 Sodium 140 Potassium 3.9 Chloride 107 Carbon Dioxide 22 L BUN 22 Creatinine 4.04 H Est GFR ( Amer) 13 L Est GFR (Non-Af Amer) 11 L BUN/Creatinine Ratio 5 L Glucose 179 H POC Glucose 96 Est Mean Plasma Glucose 183 Hemoglobin A1c 8.0 H Calculated Osmolality 298 Calcium 8.1 L 03/04/18 03/04/18 03/05/18 16:09 20:29 01:35 Sodium Potassium Chloride Carbon Dioxide BUN Creatinine Est GFR ( Amer) Est GFR (Non-Af Amer) BUN/Creatinine Ratio Glucose POC Glucose 139 H 395 H 205 H Est Mean Plasma Glucose Hemoglobin A1c Calculated Osmolality Calcium 03/05/18 03/05/18 03/05/18 07:03 07:05 07:38 Sodium Potassium Chloride Carbon Dioxide BUN Creatinine Est GFR ( Amer) Est GFR (Non-Af Amer) BUN/Creatinine Ratio Glucose POC Glucose 29 L* 29 L* 126 H Est Mean Plasma Glucose Hemoglobin A1c Calculated Osmolality Calcium Consult Discharge Plan - Plan Referrals: Tawana Quintero, DUSTLESS OPERATOR [Primary Care Provider] - <Hai Saucedo - Last Filed: 03/05/18 08:39> Date of Encounter: 03/05/18 - Time Spent With Patient Total time spent is greater than 50% in coordination of care (as documented) at patient's floor/unit and/or counseling patient: - Constitutional Vitals: Abnormal lab results RBC 2.37 M/mcL (3.82-4.97) L 03/04/18 04:08 Hgb 7.0 g/dL (11.5-15.4) L 03/04/18 04:08 Hct 23.1 % (35.3-44.9) L 03/04/18 04:08 MCHC 30.3 g/dL (31.6-35.5) L 03/04/18 04:08 RDW 16.6 % (11.5-14.5) H 03/04/18 04:08 Nucleated RBCs/100 WBC 0.2 /100 WBC (0) H 03/03/18 11:43 VBG pCO2 39 mmHg (41-51) L 03/04/18 04:21 VBG pO2 130 mmHg (25-50) H 03/04/18 04:21 Carbon Dioxide 22 mEq/L (23-29) L 03/04/18 08:20 Creatinine 4.04 mg/dL (0.60-1.20) H 03/04/18 08:20 Est GFR ( Amer) 13 (> 60) L 03/04/18 08:20 Est GFR (Non-Af Amer) 11 (> 60) L 03/04/18 08:20 BUN/Creatinine Ratio 5 (6-26) L 03/04/18 08:20 Glucose 179 mg/dL (70-105) H 03/04/18 08:20 POC Glucose 126 mg/dL (70-99) H 03/05/18 07:38 Hemoglobin A1c 8.0 % (-5.6) H 03/04/18 01:49 Calcium 8.1 mg/dL (8.6-10.3) L 03/04/18 08:20 Magnesium 1.5 mg/dL (1.6-2.6) L 03/03/18 06:20 Beta-Hydroxybutyric Acd > 2.00 mmol/L (0.02-0.27) H 03/03/18 06:20 - Attending Attestation I examined this patient and my medical decision-making was reviewed with the Resident Physician. I agree with the documented findings, disposition and treatment plan as described except to the extent set forth below. Palliative Quality Code Status: 03/03/18 13:31 DNR [Resuscitation Status: Active] [RES] Routine Comment: Resuscitation Status: [id number] - Labs CBC & Chem 7: 03/04/18 04:08 03/04/18 08:20 Labs: Laboratory Results - last 24 hr 03/04/18 03/04/18 03/04/18 01:49 08:20 16:07 Sodium 140 Potassium 3.9 Chloride 107 Carbon Dioxide 22 L BUN 22 Creatinine 4.04 H Est GFR ( Amer) 13 L Est GFR (Non-Af Amer) 11 L BUN/Creatinine Ratio 5 L Glucose 179 H POC Glucose 96 Est Mean Plasma Glucose 183 Hemoglobin A1c 8.0 H Calculated Osmolality 298 Calcium 8.1 L 03/04/18 03/04/18 03/05/18 16:09 20:29 01:35 Sodium Potassium Chloride Carbon Dioxide BUN Creatinine Est GFR ( Amer) Est GFR (Non-Af Amer) BUN/Creatinine Ratio Glucose POC Glucose 139 H 395 H 205 H Est Mean Plasma Glucose Hemoglobin A1c Calculated Osmolality Calcium 03/05/18 03/05/18 03/05/18 07:03 07:05 07:38 Sodium Potassium Chloride Carbon Dioxide BUN Creatinine Est GFR ( Amer) Est GFR (Non-Af Amer) BUN/Creatinine Ratio Glucose POC Glucose 29 L* 29 L* 126 H Est Mean Plasma Glucose Hemoglobin A1c Calculated Osmolality Calcium
--- NOTE | 2018-03-05 08:42 | Internal Med Progress Note ---
Date of Encounter: 03/05/18 Time of Encounter: 08:35 - Assessment and plan (1) DKA (diabetic ketoacidoses) Current Visit: Yes Status: Acute Assessment and plan: Improved Her BS well very low this morning @ 29 With D50, now her BS in 120's she denied any CP / SOB Pt states her PO intake is better today cont close montiroing d/c Levemit cont ISS at low scale will do accu check q4hr until her BS stabilizes Medically stable to go to Tele Qualifiers: Diabetes mellitus type: type 1 Diabetes mellitus complication detail: without coma Qualified Code(s): E10.10 - Type 1 diabetes mellitus with ketoacidosis without coma (2) Coronary artery disease Current Visit: Yes Status: Chronic Assessment and plan: CAD, hx of NSTEMI about one month ago TTE 01/27/18 shows LVEF 55%, severe pulmonary hypertension Declined LHC on prior visit, still remains unsure of willingness for LHC Cardiology is consulted for management Card recommend to cont aggressive medical management cont ASA, BB and statin Qualifiers: Coronary Disease-Associated Artery/Lesion type: bypass graft [place] vs. transplanted heart: [place] heart Associated angina: without angina Qualified Code(s): I25.810 - Atherosclerosis of coronary artery bypass graft(s) without angina pectoris (3) End stage kidney disease Current Visit: Yes Status: Chronic Assessment and plan: HD as per nephro (4) Nausea and vomiting Current Visit: Yes Status: Resolved Assessment and plan: due to DKA improved cont symptomatic and supportive care Qualifiers: Vomiting type: unspecified Vomiting Intractability: non-intractable Qualified Code(s): R11.2 - Nausea with vomiting, unspecified (5) Essential hypertension Current Visit: No Status: Chronic Assessment and plan: resumed all home meds (6) Hyperlipidemia Current Visit: No Status: Chronic Assessment and plan: on statin Qualifiers: Hyperlipidemia type: mixed hyperlipidemia Qualified Code(s): E78.2 - Mixed hyperlipidemia - Time Spent With Patient Total time spent is greater than 50% in coordination of care (as documented) at patient's floor/unit and/or counseling patient: - Subjective Interval history: Ms. Andres is a 73 year old female with a recent complicated hospitalization for shoudler surgery complicated with pneumonia, NSTEMI, CKD stageV started on HD. She has had 3 stents and a triple-vessel CABG. On 03/03 she presented to the ED for severe nausea and vomiting, and she was found to be hyperglycemic. She was given 10 units of insulin with a liter bolus of normal saline and discharged back to the longterm. However, longterm was unable to give her insulin before 8:00 am without a doctors order, so she was sent back to the ED on the morning of 03/03. She presented again with Nausea & vomiting, and was admitted to the hospital for workup of DKA. On review of imaging done by ED , CT of abdomen showed no abnormalities. CXR showed pleural effusion, unchanged from previous imaging on 03/02 and PET-CT images from February 2017, and bibasilar atelectasis. Significantly, the patient is an ESRD patient with HD MWF. pt was admitted to ICU with DKA and started her on insulin gtt. Pt is off the insulin gtt y/d, currently on ISS and Levemir. her BS dropped down to 29 this morning. Now pt is alert, awake and O x 3. resting comfortably in chair. Denied any CP. Tolerating PO intake ok finishing at least 50-60% meals. - Constitutional Vitals: Temp Pulse Resp BP Pulse Ox 99.0 F 83 19 136/42 96 03/05/18 07:08 03/05/18 07:10 03/05/18 07:10 03/05/18 07:10 03/05/18 07:10 General appearance: Present: cooperative, A&O X 3, no acute distress, answers questions appropriately - Head Head exam: Present: atraumatic, normal inspection - Neck Neck exam general surgery: Present: supple - Respiratory Respiratory exam: Present: decreased breath sounds. Absent: rales, respiratory distress, rhonchi, wheezes - Cardiovascular Cardiovascular exam: Present: RRR, +S1, +S2. Absent: systolic murmur - GI/Abdominal GI/Abdominal exam: Present: normal bowel sounds, soft. Absent: rebound, rigid, tenderness - Extremities Exam Extremities exam: Absent: calf tenderness, pedal edema, tenderness - Back Exam Back exam: Absent: CVA tenderness (L), CVA tenderness (R) - Neurological Exam Neurological exam: Present: alert, oriented X3 - Psychiatric Psychiatric exam: Present: normal affect, normal mood Internal Medicine: Result - Labs CBC & Chem 7: 03/04/18 04:08 03/04/18 08:20 Labs: [facility] 03/04/18 08:20 Sodium 140 Potassium 3.9 Chloride 107 Carbon Dioxide 22 L BUN 22 Creatinine 4.04 H Glucose 179 H Calcium 8.1 L Consult Discharge Plan - Plan Referrals: Tawana Quintero, REVENUE COORDINATOR [Primary Care Provider] -
[2018-03-05] MEDS ORDERED: Aspirin 81 MG TAB.CHEW PO SCH (09:00)
[2018-03-06 04:01] LABS: Basophils # 0.1 K/mcL (0.0-0.2); Basophils % 0.9 %; Eosinophils # 0.2 K/mcL (0.0-0.6); Eosinophils % 3.5 %; Hematocrit 23.7 % (35.3-44.9); Hemoglobin 7.2 g/dL (11.5-15.4); Immature Granulocytes % 0.5 % (0-4); Lymphocytes # 0.4 K/mcL (0.6-4.6); Lymphocytes % 7.4 %; Mean Corpuscular HGB Conc 30.4 g/dL (31.6-35.5); Mean Corpuscular Hemoglobin 29.6 pg (28.0-33.3); Mean Corpuscular Volume 97.5 fL (83.0-100.0); Mean Platelet Volume 10.4 fL (9.4-12.4); Monocytes # 0.5 K/mcL (0.0-1.3); Monocytes % 8.6 %; Neutrophils # 4.5 K/mcL (1.6-8.9); Platelet Count 179 K/mcL (140-400); Red Blood Count 2.43 M/mcL (3.82-4.97); Red Cell Distribution Width 16.3 % (11.5-14.5); Segmented Neutrophils % 79.1 %
[2018-03-06 04:24] LABS: Calcium 7.7 mg/dL (8.6-10.3); Magnesium 1.5 mg/dL (1.6-2.6)
[2018-03-06] MEDS ORDERED: D5% in Water 1,000 ML IVC PRN ×3 (04:42→08:28)
[2018-03-06] MEDS ORDERED: *HR* Dextrose 50 % in Water (Syg) 50 ML SYRINGE IVP PRN ×2 (04:42→08:28)
[2018-03-06] MEDS ORDERED: Dextrose Gel 15 GM/37.5 ML TUBE PO PRN ×4 (04:42→08:28)
[2018-03-06] MEDS: Insulin LISPRO 300 UNITS/3 ML VIAL SQ SCH ×2 (04:56→07:50)
[2018-03-06] MEDS: *HR* Heparin 5,000 UNIT/ML VIAL SQ SCH (05:56)
[2018-03-06] MEDS ORDERED: 0.9 % Sodium Chloride 250 ML IVC PRN (06:58)
[2018-03-06] MEDS ORDERED: 0.9 % Sodium Chloride 1,000 ML ONE (07:42)
[2018-03-06] MEDS: Aspirin 81 MG TAB.CHEW PO SCH (07:56)
--- NOTE | 2018-03-06 11:57 | Nephrology Progress Note ---
Date of Encounter: 03/06/18 Time of Encounter: 11:55 - Assessment and Plan (1) End stage kidney disease Current Visit: Yes Status: Chronic Before recent hospitalization with shoulder surgery, SC, and pleural effusions patient was a stage 4 CKD. With last hospitalization, HD was initiated and she has required it since. There was hope of renal recovery, but as Dr. Schafer mentioned it does not appear the kidneys are recovering at this time. Her current regimen is MWF at [facility]. (2) DKA (diabetic ketoacidoses) Current Visit: Yes Status: Acute Was seen twice recently in ED for hyperglycemia. Insulin couldnt be given at ECF before 0800. Blood sugar was low this am, is now on D50 with accuchecks every 4 hours. Qualifiers: Diabetes mellitus type: type 1 Diabetes mellitus complication detail: without coma Qualified Code(s): E10.10 - Type 1 diabetes mellitus with ketoacidosis without coma (3) Nausea and vomiting Current Visit: Yes Status: Acute Has resolved with blood sugar control. Qualifiers: Vomiting type: unspecified Vomiting Intractability: non-intractable Qualified Code(s): R11.2 - Nausea with vomiting, unspecified Subjective Principal diagnosis: DKA, Hx CAD Interval history: Pt seen and examined during hemodialysis. Pt c/o of BP cuff tightening on her lower extremity, I did reposition and let TOR Begum know. Objective - Vital Signs Vital signs: Vital Signs Temp Pulse Resp BP Pulse Ox 03/06/18 07:21 99.2 F 96 15 104/47 96 03/06/18 04:18 98.4 F 84 16 149/72 91 03/05/18 23:28 98.4 F 80 14 138/71 92 03/05/18 19:16 98 F 94 18 138/74 94 03/05/18 15:35 98.0 F 85 15 120/64 94 Intake and Output 03/05/18 03/06/18 03/06/18 23:59 07:59 15:59 Intake Total 270 / 270 50 / 50 240 / 240 Output Total 100 / 100 300 / 300 Balance 270 / 270 -50 / -50 -60 / -60 Intake: Oral 270 / 270 50 / 50 240 / 240 Output: Urine 100 / 100 300 / 300 Other: Meal Dinner Breakfast Percent of Meal Consumed 40% 100% Stool Size Small Moderate Stool Consistency loose soft Stool Color Brown Brown # Voids 1 1 # Bowel Movements 1 1 Weight 61.5 kg Blood Glucose* 115 244 136 Patient Weight 03/06/18 23:59 Weight 61.5 kg - General Appearance General appearance: Present: chronically ill, frail EENT: Present: ATNC, hearing intact, vision intact Neck: Present: supple Respiratory: Present: clear Cardiology: Present: edema (trace bilateral lower extremity.), normal S1, normal S2 Dialysis Vascular Access: Venous Catheter (Right permacath, DRSG C/D/I.) Gastrointestinal: Present: normoactive bowel sounds, no tenderness, no guarding Integumentary: Present: no rash, warm and dry Neurologic: Present: alert and oriented x3 Psychiatric: Present: mood/affect appropriate, cooperative - Lab 03/06/18 03:45 03/06/18 03:45 Most recent lab results Calcium 7.7 mg/dL (8.6-10.3) L 03/06/18 03:45 Magnesium 1.5 mg/dL (1.6-2.6) L 03/06/18 03:45 Consult Discharge Plan - Plan Referrals: Tawana Quintero, CLINICAL LABORATORY TECHNICIAN [Primary Care Provider] -
[2018-03-06] MEDS ORDERED: Insulin LISPRO 300 UNITS/3 ML VIAL SQ SCH ×2 (12:00→21:00)
[2018-03-06] MEDS ORDERED: *HR* Heparin 10,000 UNIT/10 ML VIAL IV PRN (12:01)
--- NOTE | 2018-03-06 13:28 | Event Note ---
Date of Encounter: 03/06/18 Time of Encounter: 13:15 Spoke with patient after dialysis. Patient denies pain, nausea, and anxiety. Nausea and anxiety stabilized. Chart review completed. Patient reports she is returning to rehab today, but also reports that they (rehab team) are not going to treat her like they did last week or she will leave; empathized and explained continued need for rehab and patient agreed. Patient being discharged with no further needs from palliative. Palliative team will sign off.
--- NOTE | 2018-03-06 13:56 | Discharge Summary ---
- NOTES TO OUTPATIENT PROVIDER Notes to Outpatient Provider: please check blood sugars ACHS and continue regular inuslin sliding scale at medium range. Please go for HD on // Date of Encounter: 03/06/18 Time of Encounter: 13:55 - Discharge Diagnosis (1) DKA (diabetic ketoacidoses) Priority: Primary Status: Acute Qualifiers: Diabetes mellitus type: type 1 Diabetes mellitus complication detail: without coma Qualified Code(s): E10.10 - Type 1 diabetes mellitus with ketoacidosis without coma (2) Coronary artery disease Priority: Secondary Status: Chronic Qualifiers: Coronary Disease-Associated Artery/Lesion type: bypass graft [place] vs. transplanted heart: [place] heart Associated angina: without angina Qualified Code(s): I25.810 - Atherosclerosis of coronary artery bypass graft(s) without angina pectoris (3) End stage kidney disease Priority: Secondary Status: Chronic (4) Nausea and vomiting Priority: Secondary Status: Resolved Qualifiers: Vomiting type: unspecified Vomiting Intractability: non-intractable Qualified Code(s): R11.2 - Nausea with vomiting, unspecified (5) Essential hypertension Priority: Secondary Status: Chronic (6) Hyperlipidemia Priority: Secondary Status: Chronic Qualifiers: Hyperlipidemia type: mixed hyperlipidemia Qualified Code(s): E78.2 - Mixed hyperlipidemia Hospital course: Ms. Andres is a 73 year old female with a recent complicated hospitalization for shoudler surgery complicated with pneumonia, NSTEMI, CKD stageV started on HD. She has had 3 stents and a triple-vessel CABG. On 03/03 she presented to the ED for severe nausea and vomiting, and she was found to be hyperglycemic. She was given 10 units of insulin with a liter bolus of normal saline and discharged back to the senior care. However, senior care was unable to give her insulin before 8:00 am without a doctors order, so she was sent back to the ED on the morning of 03/03. She presented again with Nausea & vomiting, and was admitted to the hospital for workup of DKA. On review of imaging done by ED , CT of abdomen showed no abnormalities. CXR showed pleural effusion, unchanged from previous imaging on 03/02 and PET-CT images from February 2017, and bibasilar atelectasis. Significantly, the patient is an ESRD patient with HD MWF. pt was admitted to ICU with DKA and started her on insulin gtt. Pt is off the insulin gtt right away and placed her on ISS and Levemir. However her BS dropped down to 29 y/d morning. So stopped long active insulin and continue ISS at medium range. Now her BS are little more stable. Today pt is alert, awake and O x 3. resting comfortably bed. Denied any CP. Tolerating PO intake well. So will d/c her back to SNF for short term PT / OT. - Time Spent with Patient Total time spent providing and/or coordinating discharge services: - Discharge Medications Home Medications: Metoprolol [Lopressor] 12.5 mg PO BID 07/31/16 [History] Ranitidine HCl [Heartburn Relief] 150 mg PO BID 07/31/16 [History] Ergocalciferol (VITAMIN D2) [Vitamin D2 (50,000 UNIT)] 50,000 unit PO Q14D 08/01 [History] Rosuvastatin [Crestor] 40 mg PO HS #30 tablet 08/02/16 [Rx] Nitroglycerin [Nitrostat] 0.4 mg SL Q5M PRN 01/25/18 [History] Aspirin 81 mg PO DAILY tab.chew 02/20/18 [Rx] Ondansetron ODT [Zofran ODT] 4 mg PO Q6HR 30 Days #6 tab.rapdis 02/21/18 [Rx] Acetaminophen [Tylenol] 650 mg PO Q6HR PRN 03/03/18 [History] Benzonatate [Tessalon] 100 mg PO TID PRN 03/03/18 [History] Dronabinol [Marinol] 2.5 mg PO BIDLS 03/03/18 [History] GuaiFENesin/Dextromethorphan [Robitussin/Dm] 10 ml PO Q6HR PRN 03/03/18 [History ] Sertraline [Zoloft] 25 mg PO HS 03/03/18 [History] Insulin LISPRO [HumaLOG] 0 units SQ HS vial 03/06/18 [Rx] Insulin LISPRO [HumaLOG] 0 units SQ TIDAC vial 03/06/18 [Rx] Allergies/Adverse Reactions: 3 Allergy/AdvReac Type Severity Reaction Status Date / Time codeine Allergy Rash Verified 03/03/18 07:01 losartan [From Cozaar] Allergy See Verified 03/03/18 07:01 Comments lisinopril AdvReac Cough Verified 03/03/18 07:01 promethazine [From Phenergan] AdvReac Confusion Verified 03/03/18 07:01 Date of admission: 03/03/18 08:10 Primary care physician: Tawana Quintero CNP Consults: 03/03/18 08:20 Consult to Cardiology [CONS] Stat Comment: Consulting Provider: Cardiology Winter Reason for Consult: EKG changes Time Notified: 08:21 Call Completed: Yes 03/03/18 11:37 Consult to Rivet Machine Operator [CONS] Routine Reason for SW Consult: HAS BEEN IN SIGNATURE X 1 WEEK 03/03/18 11:58 Consult to Palliative Care [CONS] Routine Comment: Consulting Provider: Palliative Care Winter Reason for Consult: Clarify goals of treatment Time Notified: 11:58 Call Completed: Yes 03/03/18 14:17 Consult to Nephrology [CONS] Routine Consulting Provider: Kidney Winter/BOLA/ISHA/CHAGO Reason for Consult: ESRD on HD MWMaral, Dr. Sharp Patient Time Notified: 14:18 Call Completed: Yes 03/04/18 08:00 Consult to Dialysis [CONS] ONCE 03/05/18 08:00 Consult to Dialysis [CONS] ONCE 03/06/18 07:00 Consult to Dialysis [CONS] ONCE - Constitutional Vitals: Temp Pulse Resp BP Pulse Ox 99.2 F 96 15 104/47 96 03/06/18 07:21 03/06/18 07:21 03/06/18 07:21 03/06/18 07:21 03/06/18 07:21 General appearance: Present: cooperative, A&O X 3, no acute distress, answers questions appropriately - Head Head exam: Present: atraumatic, normal inspection - Neck Neck exam general surgery: Present: supple - Respiratory Respiratory exam: Present: decreased breath sounds. Absent: rales, respiratory distress, rhonchi, wheezes - Cardiovascular Cardiovascular exam: Present: RRR, +S1, +S2. Absent: systolic murmur - GI/Abdominal GI/Abdominal exam: Present: normal bowel sounds, soft. Absent: rebound, rigid, tenderness - Extremities Exam Extremities exam: Present: pedal edema (1+). Absent: calf tenderness, tenderness - Back Exam Back exam: Absent: CVA tenderness (L), CVA tenderness (R) - Neurological Exam Neurological exam: Present: alert, oriented X3 - Psychiatric Psychiatric exam: Present: depressed - Patient Status Disposition: Transfer SNF Condition: Good Overall status at discharge: patient is back to baseline - Discharge Instructions Follow Up With: Tawana Quintero CARTRIDGE FEEDER [Primary Care Provider] - - Diet and Activity Activity: as per physical therapy, increase activity as tolerated Diet: diabetic diet, low salt diet
--- NOTE | 2018-03-06 14:00 | Physician Discharge Referral ---
ExtendedCare Referral Info Transfer To: ECF Provider in Charge after Transfer: PCP Institutional Level of Care: Skilled - Diagnosis (1) DKA (diabetic ketoacidoses) Status: Acute (2) Coronary artery disease Status: Chronic (3) End stage kidney disease Status: Chronic (4) Nausea and vomiting Status: Resolved (5) Essential hypertension Status: Chronic (6) Hyperlipidemia Status: Chronic - Transfer Medications Home Medications: Metoprolol [Lopressor] 12.5 mg PO BID 07/31/16 [History] Ranitidine HCl [Heartburn Relief] 150 mg PO BID 07/31/16 [History] Ergocalciferol (VITAMIN D2) [Vitamin D2 (50,000 UNIT)] 50,000 unit PO Q14D 08/01 [History] Rosuvastatin [Crestor] 40 mg PO HS #30 tablet 08/02/16 [Rx] Nitroglycerin [Nitrostat] 0.4 mg SL Q5M PRN 01/25/18 [History] Aspirin 81 mg PO DAILY tab.chew 02/20/18 [Rx] Ondansetron ODT [Zofran ODT] 4 mg PO Q6HR 30 Days #6 tab.rapdis 02/21/18 [Rx] Acetaminophen [Tylenol] 650 mg PO Q6HR PRN 03/03/18 [History] Benzonatate [Tessalon] 100 mg PO TID PRN 03/03/18 [History] Dronabinol [Marinol] 2.5 mg PO BIDLS 03/03/18 [History] GuaiFENesin/Dextromethorphan [Robitussin/Dm] 10 ml PO Q6HR PRN 03/03/18 [History ] Sertraline [Zoloft] 25 mg PO HS 03/03/18 [History] Insulin LISPRO [HumaLOG] 0 units SQ HS vial 03/06/18 [Rx] Insulin LISPRO [HumaLOG] 0 units SQ TIDAC vial 03/06/18 [Rx] Allergies/Adverse Reactions: 3 Allergy/AdvReac Type Severity Reaction Status Date / Time codeine Allergy Rash Verified 03/03/18 07:01 losartan [From Cozaar] Allergy See Verified 03/03/18 07:01 Comments lisinopril AdvReac Cough Verified 03/03/18 07:01 promethazine [From Phenergan] AdvReac Confusion Verified 03/03/18 07:01 - Respiratory Orders Smoking Cessation: Smoking cessation has been advised. For more information, call the [place] Tobacco Quit Line at 6-442-EFOM-NOW. CERTIFICATION: I certify that the transfer of the above named patient to an Extended Care Facility is necessary for the continuing treatment of the diagnosis listed. The above information is true and accurate reflection of patient's current condition. Confidential - Redisclosure prohibited without a patient's written consent.
[2018-03-06 14:26] VITALS: BP 136/64
== END 2018-03-06 15:55 | DRG 637 ==
LOC: EMEROO 05:51 → INTOOBSV 08:10 → ICNU 08:10 → 2ANU 03-05 09:29
PROVIDERS: ADMIT Internal Medicine Pulmonary Disease; ATTEND Internal Medicine Pulmonary Disease

== ENCOUNTER 2018-06-05 10:01 | Observation (INO) ==
--- NOTE | 2018-06-05 12:06 | Nephrology Consult Note ---
Date of Encounter: 06/05/18 Time of Encounter: 12:24 Assessment and Plan (1) Acute kidney injury superimposed on CKD Current Visit: No Status: Acute Pt had HD dependent ASHLEY in December of 2017. Has been off HD for 1 month, line has been removed. Will follow a renal protective strategy with heart cath tomorrow. NS @ 65/hr to start 0600 on 06/06/18 and end at 1800 on 06/06/18. Mucomyst 650 mg Po BID x 3 days. Avoid nephrotoxins and renal dose all medications. Strict I/O. BMP tomorrow. (2) CAD (coronary artery disease) Current Visit: Yes Status: Acute Per Cardio, heart cath tomorrow. Qualifiers: Qualified Code(s): I25.10 - Atherosclerotic heart disease of [place] coronary artery without angina pectoris (3) Essential hypertension Current Visit: No Status: Chronic Continue home BP medications. History of Present Illness - Reason for Consult Consult date: 06/05/18 Chronic Kidney Disease - Chief Complaint heart cath tomorrow - History of Present Illness Ms. Andres is a 73 year old female well known to Dr. Sharp. PMH: DM, HTN, CAD, S/ p CABG, CHF, Anemia, PVD and stage 4 CKD presenting for follow up She is doing well today, but she is still fatigued from lengthy hospitalization. She presented to hospital on 01/25/18 for right shoulder surgery. She did well with that but had a Nstemi a week later and then required HD for an ASHLEY. She has recovered her renal function and the Permacath line was removed on Tuesday and has been a month since she has received HD. She does admit to feeling very fatigued at home. Denies CP, SOB. Did have a follow up with cardiology and was brought to hospital for left heart cath tomorrow. I will order NS and mucomyst. Avoid nephrotoxins and renal dose all medications to avoid further kidney injury. Past Med Surg Social Fam HX - Past Medical History Medical history: coronary artery disease, diabetes, GERD, hyperlipidemia, hypertension, myocardial infarction, renal disease Psychiatric history: no psych history - Past Surgical History Surgical History: coronary bypass (CABG), orthopedic, other (Shoulder scope), other (EGD 2010, colonoscopy greater than 10 year ago) Additional surgical history: Cardiac stents x3, "frozen shoulder surgery, L and R shoulder," Bilateral eye implants, other eye surgery - Social History Smoking Status: Never smoker Smokeless Tobacco Status: No Alcohol use: none Drug use: none - Family History Father Living Status: Hx Family Cardiac Disorders: Yes (CAD, PA) Mother Living Status: Hx Family Cardiac Disorders: Yes (CAD) Hx Family Endocrine Disorder: Yes (DMII, kidney problems) Medications and Allergies Metoprolol [Lopressor] 12.5 mg PO BID 07/31/16 [History] Ranitidine HCl [Heartburn Relief] 150 mg PO BID 07/31/16 [History] Ergocalciferol (VITAMIN D2) [Vitamin D2 (50,000 UNIT)] 50,000 unit PO Q14D 08/01 [History] Rosuvastatin [Crestor] 40 mg PO HS #30 tablet 08/02/16 [Rx] Nitroglycerin [Nitrostat] 0.4 mg SL Q5M PRN 01/25/18 [History] Aspirin 81 mg PO DAILY tab.chew 02/20/18 [Rx] Insulin NPH Hum/Reg Insulin Hm [Novolin 70-30 100 Unit/ml Vial] 12 unit SQ QPM 06/05/18 [History] Insulin NPH Hum/Reg Insulin Hm [Novolin 70-30 100 Unit/ml Vial] 30 unit SQ QAM 06/05/18 [History] 3 Allergy/AdvReac Type Severity Reaction Status Date / Time codeine Allergy Rash Verified 03/03/18 07:01 losartan [From Cozaar] Allergy See Verified 03/03/18 07:01 Comments lisinopril AdvReac Cough Verified 03/03/18 07:01 promethazine [From Phenergan] AdvReac Confusion Verified 03/03/18 07:01 Review of Systems Constitutional: no chills, no fever(s) Cardiovascular: no chest pain, no chest pain at rest, no dyspnea, no edema, no orthopnea, no palpitations Gastrointestinal: diarrhea, no change in bowel habits, no nausea, no vomiting Exam - General Appearance General appearance: well-developed, well-nourished EENT: ATNC, hearing intact, vision intact Neck: supple Respiratory: clear Cardiology: no edema, normal S1, normal S2 Gastrointestinal: normoactive bowel sounds, no tenderness, no guarding Integumentary: no rash, warm and dry Neurologic: alert and oriented x3 Psychiatric: mood/affect appropriate, cooperative Consult Discharge Plan - Plan Referrals: Tawana Quintero, AVIATION ELECTRICAL TECHNICIAN [Primary Care Provider] -
[2018-06-05] MEDS ORDERED: 0.9 % Sodium Chloride 1,000 ML IVC SCH (12:45)
[2018-06-05] MEDS: *HR* Acetylcysteine 20% 600 MG/3 ML ORAL SYRINGE PO SCH ×2 (15:30→21:45)
[2018-06-05] MEDS ORDERED: *HR* Dextrose 50 % in Water (Syg) 50 ML SYRINGE IVP PRN (16:09)
[2018-06-05] MEDS ORDERED: D5% in Water 1,000 ML IVC PRN (16:09)
[2018-06-05] MEDS ORDERED: Dextrose Gel 15 GM/37.5 ML TUBE PO PRN ×2 (16:09)
[2018-06-05] MEDS: Insulin LISPRO 300 UNITS/3 ML VIAL SQ SCH ×2 (18:36→21:37)
[2018-06-06 05:47] LABS: Calcium 9.2 mg/dL (8.6-10.3); Potassium 5.9 mEq/L (3.5-5.1)
[2018-06-06] MEDS ORDERED: 0.9 % Sodium Chloride 1,000 ML IVC SCH ×2 (06:00→17:00)
[2018-06-06] MEDS: Insulin LISPRO 300 UNITS/3 ML VIAL SQ SCH ×4 (08:18→22:07)
[2018-06-06] MEDS ORDERED: Nitroglycerin 0.4 MG TAB.SUBL SL PRN (08:33)
--- NOTE | 2018-06-06 08:33 | Nephrology Progress Note ---
Date of Encounter: 06/06/18 Time of Encounter: 08:31 - Assessment and Plan (1) Acute kidney injury superimposed on CKD Current Visit: No Status: Acute Pt had HD dependent ASHLEY in December of 2017. Has been off HD for 1 month Permacath was removed 4 days ago. Follow a renal protective strategy with heart cath tomorrow. NS @ 65/hr to start 0600 on 06/06/18 and end at 1800 on 06/06/18. Mucomyst 650 mg Po BID x 3 days. Avoid nephrotoxins and renal dose all medications. Strict I/O. BMP tomorrow BMP 1-2 days after discharge following heart cath; anticipate patient will be discharged tomorrow. (2) Essential hypertension Current Visit: No Status: Chronic per cardiology (3) CAD (coronary artery disease) Current Visit: Yes Status: Acute per cardiology Heart cath today Qualifiers: Coronary Disease-Associated Artery/Lesion type: unspecified vessel or lesion type [place] vs. transplanted heart: [place] heart Associated angina: with unspecified angina Qualified Code(s): I25.119 - Atherosclerotic heart disease of [place] coronary artery with unspecified angina pectoris Subjective Principal diagnosis: CKD, heart cath scheduled Interval history: Patient seen and examined. Spoke with Yuan Moreno NP who states they will transfer patient over to their service as she was placed under nephrology service by mistake; will place official consult for nephrology. Patient goes for heart cath today. Objective - Vital Signs Vital signs: Vital Signs Temp Pulse Resp BP Pulse Ox 06/06/18 06:46 98.4 F 95 16 136/65 94 06/06/18 05:17 97.7 F 85 16 164/64 98 06/06/18 00:59 98.5 F 97 17 137/67 97 06/05/18 19:12 98.2 F 92 17 127/62 98 06/05/18 15:46 97.6 F 93 18 151/65 99 Intake and Output 06/05/18 06/06/18 06/06/18 23:59 07:59 15:59 Output Total 0 / 0 Balance 0 / 0 Output: Urine 0 / 0 Other: Weight 52.798 kg Blood Glucose* 182 303 - General Appearance General appearance: Present: well-developed, well-nourished EENT: Present: ATNC, mucous membranes moist, hearing intact, vision intact Neck: Present: supple Respiratory: Present: clear Cardiology: Present: no edema, normal S1, normal S2 Gastrointestinal: Present: no tenderness, no guarding Integumentary: Present: warm and dry Neurologic: Present: alert and oriented x3 Psychiatric: Present: mood/affect appropriate, cooperative - Lab 06/06/18 04:49 Most recent lab results Calcium 9.2 mg/dL (8.6-10.3) 06/06/18 04:49 Consult Discharge Plan - Plan Referrals: Tawana Quintero, SECURITY SYSTEM ADMINISTRATOR [Primary Care Provider] -
[2018-06-06] MEDS ORDERED: Naloxone 0.4 MG/ML INJ IVP PRN (08:37)
--- NOTE | 2018-06-06 08:44 | History & Physical Report ---
Date of Encounter: 06/06/18 Time of Encounter: 08:30 24 Hour HP Update - Instructions Instructions: If the History and Physical is less than 30 days old and was completed prior to A.M. admission and or procedure and has NOT been updated on calendar day of procedure please complete this update prior to performing procedure. - Update Patient reports changes in Medical Condition: No Changes in examination, assessment, or condition: No Changes in Medication: No Preop tests/diagnostics Reviewed: Yes Additions to current History and Physical: see H&P office note on chart
[2018-06-06] MEDS ORDERED: Famotidine 20 MG TABLET PO SCH ×2 (09:00→09:45)
[2018-06-06] MEDS: *HR* Acetylcysteine 20% 600 MG/3 ML ORAL SYRINGE PO SCH ×2 (09:02→22:09)
[2018-06-06] MEDS: Aspirin 81 MG TAB.CHEW PO SCH (10:02)
[2018-06-06] MEDS: Cholecalciferol (D-3) 1,000 UNIT TABLET PO SCH (10:03)
[2018-06-06] MEDS: Famotidine 20 MG TABLET PO SCH (10:03)
[2018-06-06] MEDS: Insulin NPH/REG 70/30 100 UNIT/ML (x5UNIT) SQ SCH (10:03)
[2018-06-06] MEDS ORDERED: Ondansetron Oral Soln 2 MG/2.5 ML ORAL.SYG PO ONE (14:59)
--- NOTE | 2018-06-06 15:26 | Pre-Sedation Evaluation ---
Pre-sedation evaluation - Pre-sedation checklist Date of procedure: 06/06/18 Procedure: heart cath Recent Vitals: Last Vital Signs Temp 97.8 F 06/06/18 15:14 Pulse 104 06/06/18 15:14 Resp 16 06/06/18 15:14 BP 160/69 06/06/18 15:14 Pulse Ox 100 06/06/18 15:14 H&P (including ROS) documented in medical record: Yes Previous reaction to sedatives/anesthetics: No Dietary Status: NPO after Midnight Airway Assessment: Patient can open mouth completely, TMJ function normal, Micrognathia (under-bite, receding chin) absent, Neck with adequate range of motion Dentition: No loose teeth or bridges, dentures removed Possible difficult airway: No ASA Classification *see protocol: CLASS II-Mild systemic disease Plan of Care: Pt appropriate candidate for procedure/moderate/conscious sedation , Risks/benefits of procedure/sedation discussed w/ patient/family Cardiac Registry (Cardio Only) - Functional Capacity Functional Capacity: < 4 METS - Clincal Frailty Scale Clinical Frailty Scale: Vulnerable
[2018-06-06] MEDS ORDERED: 0.9 % Sodium Chloride 1,000 ML ONE (15:33)
[2018-06-06] MEDS ORDERED: *HR* FentaNYL (PF) 100 MCG/2 ML VIAL ONE (15:33)
[2018-06-06] MEDS ORDERED: *HR* Midazolam HCl 2 MG/2 ML VIAL ONE ×2 (15:33→16:21)
[2018-06-06] MEDS ORDERED: ISOVUE-370 200 ML INFUS..BTL IV ONE ×2 (16:13→16:57)
[2018-06-06] MEDS ORDERED: *HR* Bivalirudin 250 MG VIAL IVC ONE (16:22)
[2018-06-06] MEDS ORDERED: Nitroglycerin 25 MG/250 ML INFUS..BTL IVC ONE (16:38)
[2018-06-06] MEDS ORDERED: *HR* Ticagrelor 90 MG TABLET ONE (16:44)
[2018-06-06] MEDS ORDERED: Heparin 1,000 UNITS/500 mL 500 ML ONE (16:56)
[2018-06-06] MEDS ORDERED: Nitroglycerin 1,000 MCG/10 ML VIAL IV ONE (16:57)
[2018-06-06] MEDS ORDERED: *HR* Heparin 10,000 UNIT/10 ML VIAL ONE (16:57)
[2018-06-06] MEDS ORDERED: Insulin NPH/REG 70/30 100 UNIT/ML (x5UNIT) SQ SCH (18:00)
--- NOTE | 2018-06-06 19:18 | Invasive Diagnostic Lab Proc ---
Name: Elo Andres Date of Study: 06/06/2018 Date: 1945 Ht: 62.9in Medical Record#: [id number] Age: 73 Wt: 116.18lb Gender: Female BSA: 1.53 Order #: [id number] BMI: 20.64 Physicians Procedure Physician: Ali[facility] Alvarado MD, [facility] Referring MD: Referring MD: Staff Name Position [facility] Monitor 03:35 PM Liana Aviles RN Tin Flopper 03:35 PM [facility], Jessica RT (R) Scrub 03:35 PM Indications Indication Unstable Angina Procedures Performed Procedure CORONARY ART/GRFT ANGIO S&I PRQ CARD LAYLA STENT W/ANGIO 1 VSL Pre-Procedure Checklist Informed consent is complete signed and on chart. H&P is on chart. ID band is on and ID verified with patient. Patient NPO for procedure The procedure was described for the patient and questions were answered. Blood Pressure: 169/75 ECG is on chart. Rhythm: NSR Plan of Care Patient will tolerate the procedure without complications. Adequate level of comfort will be maintained. Hemodynamics will remain stable Patient will recover from procedure without complications. Respiratory function will be maintained. Cardiac rhythm will remain stable. Patient temperature will be maintained. Patient and/or family have verbalized understanding of the procedure. Patient Education Chief Complaint/Reason for Test: Cardiac Cath Developmental Category: Geriatric (65+ years) Developmentally Appropriate for Age: Yes Learning Barriers: None Education Needs: Procedure Education Method: Verbal Information Taught: Cardiac Cath Educational Evaluation: Able to repeat information Intravenous Access Time IV Size Location DC'd Fluid/Drip Rate Units RN 03:31 PM 18g 1 1/4" Patent On Arrival Rt Arm 0.9NaCl 25 ml/hr Liana Aviles RN 05:00 PM 18g 1 1/4" Patent On Arrival Rt Arm 0.9NaCl 25 ml/hr Jessi Armstrong RN Allergies *HR* CODEINE promethazine Losartan Potassium lisinopril Vital Signs Time BP (mmHg) HR (bpm) O2 Sat. RR (bpm) LOC 03:31 PM / % 5 = Fully awake and oriented or at pre-proc level 03:34 PM / % 5 = Fully awake and oriented or at pre-proc level 03:34 PM / % 4 = Oriented but drowsy 03:49 PM / % 4 = Oriented but drowsy 04:05 PM / % 4 = Oriented but drowsy 04:20 PM / % 4 = Oriented but drowsy 03:36 PM 169 / 75 101 % 15 03:41 PM 183 / 77 96 100 % 17 03:45 PM 167 / 69 99 98 % 11 03:50 PM 167 / 75 97 98 % 16 03:55 PM 174 / 78 91 99 % 16 04:00 PM 175 / 76 92 99 % 13 04:05 PM 177 / 77 93 100 % 13 04:10 PM 175 / 74 97 100 % 15 04:15 PM 186 / 86 97 100 % 18 04:20 PM 187 / 90 96 100 % 13 04:25 PM 188 / 76 94 99 % 20 04:30 PM 171 / 75 96 95 % 14 04:35 PM 180 / 84 95 97 % 13 04:40 PM 175 / 76 95 96 % 12 04:35 PM / % 4 = Oriented but drowsy 05:00 PM 174 / 66 93 95 % 14 5 = Fully awake and oriented or at pre-proc level 05:15 PM 178 / 71 87 94 % 12 5 = Fully awake and oriented or at pre-proc level 05:30 PM 181 / 73 87 94 % 18 5 = Fully awake and oriented or at pre-proc level 05:45 PM 185 / 69 91 95 % 15 5 = Fully awake and oriented or at pre-proc level 06:00 PM 154 / 59 87 95 % 16 5 = Fully awake and oriented or at pre-proc level 06:15 PM 165 / 62 88 98 % 12 5 = Fully awake and oriented or at pre-proc level 06:30 PM 174 / 70 89 96 % 21 5 = Fully awake and oriented or at pre-proc level 06:45 PM 170 / 65 84 97 % 17 5 = Fully awake and oriented or at pre-proc level 07:00 PM 172 / 70 87 97 % 20 5 = Fully awake and oriented or at pre-proc level Procedural Medications Time Medication Dose Units Method Given By 03:31 PM Oxygen 2 L/min nasal cannula Liana Aviles RN 03:45 PM Oxygen 2 L/min nasal cannula Liana Aviles RN 03:45 PM Versed 2 mg Intravenous Liana Aviles RN 03:45 PM Fentanyl 50 mcg Intravenous Liana Aviles RN 03:52 PM Lidocaine 2% 16 ml Subcutaneous Aliya Alvarado MD, FACC 04:27 PM Angiomax 0.75mg/kg bolus: 8 ml Intravenous Liana Aviles RN 04:27 PM Angiomax 1.75mg/kg/hr: 2.8 ml/hr Intravenous Liana Aviles RN 04:37 PM Nitroglycerin 200 mcg Intraarterial Aliya Alvarado MD, [facility] 04:49 PM Brilinta 180 mg Orally Liana Aviles RN 05:01 PM Nitroglycerin 10 mcg/min Intravenous Liana Aviles RN ASA Classification: CLASS II- Mild systemic disease (i.e. well-controlled diabetes, hypertension, asthma, cigarette smoking) Anders Score Preprocedure Postprocedure Activity 2- Moves 4 extremities sustained head lift Activity 2- Moves 4 extremities sustained head lift Circulation 2- SBP +/= 20 points of pre-anesthetic level Circulation 2- SBP +/= 20 points of pre-anesthetic level Consciousness 2- Awake and alert oriented x 3 Consciousness 2- Awake and alert oriented x 3 O2 Saturation 2- Able to maintain O2 satruation of 92% on room air O2 Saturation 2- Able to maintain O2 satruation of 92% on room air Respiratory 2- Able to deep breathe and cough well Respiratory 2- Able to deep breathe and cough well Total Score 10 Total Score 10 Contrast Agent: Isovue Diagnostic Contrast: 144 ml Total Contrast: 144 ml Fluoro Dose: 4562 mGy Procedure Log Time Note Enter By 03:31 PM Pt arrived to senior label specialist 2 at 15:31 [email or web address] 03:31 PM Physician arrived 15:31 [email or web address] 03:31 PM Fletcher and char completed [email or web address] 03:31 PM Sign in performed according to hospital policy. [email or web address] 03:31 PM Procedure start 15:31 [email or web address] 03:31 PM Time: 15:31 Oxygen on at 2 L/min per nasal cannula by Liana Aviles RN [email or web address] 03:31 PM Time: 15:31 Patient comfortable and pain free: Yes [email or web address] 03:31 PM Time: 15:31LOC: 5 = Fully awake and oriented or at pre-proc level [email or web address] 03:34 PM CathStat 03:34 PM Time: 15:34 Patient comfortable and pain free: Yes [email or web address] 03:34 PM Time: 15:34LOC: 5 = Fully awake and oriented or at pre-proc level [email or web address] 03:35 PM Vitals capture started with the following parameters, Patient=Adult, Interval=5 min, Initial Qobpgvyp=470 mmHg, Deflation Rate=5 mmHg, Cuff placed on Right Arm 03:35 PM Clinical Presentation: Unstable angina 03:35 PM Tayla Robb RN Position: Monitor Time in: 15:35 [facility] 03:35 PM Liana Aviles RN Position: Tin Flopper Time in: 15:35 [facility] 03:35 PM Sites, Jessica RT (R) Position: Scrub Time in: 15:35 [facility] 03:35 PM Patient charges- Angio tray pack, Navilyst 3mm J, Pulse Oximetry and ACIST tubing and transducer 03:35 PM Hair removed from procedure site in procedure lab using clippers. Bilateral groin prepped with Chloraprep by Liana Aviles RN, then patient was draped. Skin intact. [facility] 03:35 PM ASA Class CLASS II- Mild systemic disease (i.e. well-controlled diabetes, hypertension, asthma, cigarette smoking) [facility] 03:36 PM BE=129 bpm, IYNC=949/75 mmhg, Resp=15 B/min 03:41 PM HR=96 bpm, BPEI=178/77 mmhg, ZoK3=603.0 %, Resp=17 B/min 03:45 PM Time: 15:45 Oxygen on at 2 L/min per nasal cannula by Liana Aviles RN [email or web address] 03:45 PM Time: 15:45 Versed 2 mg Intravenous Given by Liana Aviles RNmeir 03:45 PM Time: 15:45 Fentanyl 50 mcg Intravenous Given by Liana Aviles RN [email or web address] 03:45 PM HR=99 bpm, JNBM=302/69 mmhg, SpO2=98.0 %, Resp=11 B/min 03:49 PM Time: 15:34LOC: 4 = Oriented but drowsy [facility] 03[facility] PM Time: 15:34 Patient comfortable and pain free: Yes sharan 03:50 PM HR=97 bpm, OWHU=598/75 mmhg, SpO2=98.0 %, Resp=16 B/min 03:51 PM Time out performed according to hospital policy [facility] 03[facility] PM Time: 15:52 16 ml Lidocaine 2% to right groin Subcutaneous Given by Aliya Alvarado MD, [facility] tsoummers 03:53 PM Pressure channel 1 zeroed. 03:53 PM Recorded ECG: HR=93 Condition=Condition 1 03:54 PM Access obtained by percutaneous puncture. 5Fr 10cm Terumo Diamond sheath placed in right Femoral artery. [id number] tsoummers 03:54 PM 5Fr FL 4 catheter inserted over the wire [facility] tsoummers 03:54 PM 0.035 145cm Navilyst 3mmJ wire [id number] tsoummers 03:54 PM wire removed tsoummers 03:55 PM LCA angiography performed in multiple views. tsoummers 03:55 PM Recorded Pressure: Ao, HR=95, Condition=Condition 1 (Aorta) Ao 154/78/113 03:55 PM HR=91 bpm, JJKC=737/78 mmhg, SpO2=99.0 %, Resp=16 B/min 03:56 PM Catheter removed tsoummers 03:56 PM 5Fr FR 4 catheter inserted over the wire [facility] tsoummers 03:58 PM RCA angiography performed in multiple views. tsoummers 03:58 PM Recorded Pressure: Ao, HR=95, Condition=Condition 1 (Aorta) Ao 147/82/114 04:00 PM Catheter removed tsoummers 04:00 PM 5Fr IM catheter inserted over the wire [id number] tsoummers 04:00 PM HR=92 bpm, JAXY=262/76 mmhg, SpO2=99.0 %, Resp=13 B/min 04:05 PM Time: 15:49 Patient comfortable and pain free: Yes tsoummers 04:05 PM Time: 15:49LOC: 4 = Oriented but drowsy tsoummers 04:05 PM Recorded Pressure: Ao, HR=95, Condition=Condition 1 (Aorta) Ao 158/90/123 04:05 PM HR=93 bpm, QQHF=222/77 mmhg, BlK6=325.0 %, Resp=13 B/min 04:05 PM Left TREVON to the LAD angio performed in multiple views. tsoummers 04:06 PM Catheter removed tsoummers 04:06 PM 5Fr MP catheter inserted over the wire [facility] tsoummers 04:10 PM Catheter removed tsoummers 04:10 PM HR=97 bpm, XYPG=382/74 mmhg, RoC0=431.0 %, Resp=15 B/min 04:12 PM 5Fr Pigtail catheter inserted over the wire [facility] [email or web address] 04:12 PM Bolus angiogram of Aortic root complete: 15 ml/sec for a total of 30 mls nay 04:13 PM Catheter removed [facility] 04:14 PM 5Fr 3DRC catheter inserted over the wire [id number] [facility] 04:14 PM SVG to the RPDA angio performed in multiple views. 04:15 PM Recorded Pressure: Ao, HR=93, Condition=Condition 1 (Aorta) Ao 170/92/130 04:15 PM HR=97 bpm, OBRC=639/86 mmhg, XlZ9=403.0 %, Resp=18 B/min 04:16 PM Coronary Dominance: right nay 04:20 PM Time: 16:05LOC: 4 = Oriented but drowsy nay 04:20 PM Time: 16:05 Patient comfortable and pain free: Yes meir 04:20 PM HR=96 bpm, WUEW=141/90 mmhg, HcA5=963.0 %, Resp=13 B/min 04:21 PM Catheter removed [email or web address] 04:25 PM HR=94 bpm, IYOQ=211/76 mmhg, SpO2=99.0 %, Resp=20 B/min 04:27 PM Sheath exchanged for a 6 Fr 11 cm Cordis Terese sheath [id number] sharan 04:27 PM Time: 16:27 Angiomax 0.75mg/kg bolus: 8 ml Intravenous Given by Liana Aviles RN sharan 04:27 PM Time: 16:27 Angiomax 1.75mg/kg/hr: 2.8 ml/hr Intravenous Given by Liana Aviles RN Lora pump sharan 04:28 PM 6Fr 3DRC [place] Bright tip guide catheter was used to cannulate the PCI vessel successfully. reused? No mm 04:29 PM Recorded Pressure: Ao, HR=94, Condition=Condition 1 (Aorta) Ao 172/59/108 04:29 PM .014 Prowater 180cm guide wire across target lesion- successful. reused? No tsoummers 04:30 PM Lesion found in Right PDA. Pre Stenosis: 95 Pre SHENG Flow: 3: Complete and Brisk Flow/Perfusion tsoummers 04:30 PM Right Coronary, Right Posterior Descending Arteries with Right Posterolateral and Acute Marginal branches with 95 % stenosis. If graft is supplying this area, 0 % stenosis tsoummers 04:30 PM HR=96 bpm, KTUY=568/75 mmhg, SpO2=95.0 %, Resp=14 B/min 04:32 PM 2.0 mm x 8 mm Emerge Monorail balloon across target lesion- successful. reused? No tsoummers 04:32 PM Balloon inflated @ 8 kash for 20 seconds tsoummers 04:32 PM Recorded Pressure: Ao, HR=96, Condition=Condition 1 (Aorta) Ao 161/81/119 04:33 PM Recorded Pressure: Ao, HR=95, Condition=Condition 1 (Aorta) Ao 160/58/104 04:33 PM Balloon catheter removed intact. tsoumm 04:34 PM 2.25mm x 8mm Synergy drug-eluting stent across target lesion- successful Lot #[id number] oumm 04:35 PM Time: 16:20 Patient comfortable and pain free: Yes tsoummers 04:35 PM Time: 16:20LOC: 4 = Oriented but drowsy tsoummers 04:35 PM HR=95 bpm, ENBO=108/84 mmhg, SpO2=97.0 %, Resp=13 B/min 04:35 PM Stent deployed @ 11 kash for 30 seconds tsoumm 04:36 PM Recorded Pressure: Ao, HR=95, Condition=Condition 1 (Aorta) Ao 172/90/129 04:37 PM Stent delivery system removed intact. mm 04:37 PM Time: 16:37 Nitroglycerin 200 mcg Intraarterial Given by Aliya Alvarado MD, [facility] tsoumm 04:40 PM HR=95 bpm, MSCL=507/76 mmhg, SpO2=96.0 %, Resp=12 B/min 04:41 PM Guide wire removed intact. tsoumm 04:41 PM Guide catheter [facility]. [facility] 04[facility] PM Bolus angiogram of right Femoral complete: 2 ml/sec for a total of 4 mls [facility] 04:44 PM Procedure completed at 16:44 06/06/2018 tsoummers 04:44 PM Did you address SHENG flow and Dominance? Yes tsoummers 04:45 PM Sign out completed: Radiation Dose 377.08 mGy, 4561.67 cGy/cm2 Fluoro Time: 12 Isovue 370 - 200ml contrast 144 ml given by Aliya Alvarado MD, [facility]. Complications: NoneCardiac Rehab Consult needed: YesConfirmed administered medications: Yes tsoummers 04:45 PM Isovue 370 - 200ml,2 Bottle(s) used. tsoummers 04:45 PM Sheath left in place to be pulled on floor/holding area tsoummers 04:45 PM Estimated Blood Loss: less than 20cc tsoummers 04:45 PM Post ECG Atrial Fibrillation tsoummers 04:[address] Alvarado, run angiomax for one hour tsoummers 04:45 PM Post Blood Pressure 175/76 tsoummers 04:45 PM Information taught Cardiac Cath and PCI tsoummers 04:45 PM Education needs Procedure, Plan of Care, and Responsibilities of Patient in Care tsoummers 04:45 PM Learning barriers :None tsoummers 04:45 PM Education Methods Verbal tsoummers 04:45 PM Education evaluation Able to repeat information tsoummers 04:45 PM Site status No bleeding/hematoma - Rt Groin as reported by Sites, Jessica RT (R) at 16:45 tsoummers 04:45 PM Opsite applied tsoummers 04:46 PM Plavix, Effient or Brilinta given Yes tsoummers 04:46 PM Delay to floor Bed availability tsoummers 04:46 PM Complications: None tsoummers 04:46 PM no family present tsoummers 04:46 PM pt will be sent to 2N10 when room is clean per Lizette bed management tsoummers 04:47 PM Lesion found in Proximal RCA. Pre Stenosis: 50 Pre SHENG Flow: tsoummers 04:47 PM Lesion found in Mid RCA. Pre Stenosis: 50 Pre SHENG Flow: tsoummers 04:47 PM Lesion found in Distal RCA. Pre Stenosis: 80 Pre SHENG Flow: tsoummers 04:48 PM Lesion found in Proximal LAD. Pre Stenosis: 100 Pre SHENG Flow: 0: No Flow/No perfusion tsoummers 04:48 PM Lesion found in Mid LAD. Pre Stenosis: 60 Pre SHENG Flow: tsoummers 04:48 PM Lesion found in 1st Diagonal. Pre Stenosis: 30 Pre SHENG Flow: tsoummers 04:48 PM Lesion found in Proximal Circumflex. Pre Stenosis: 40 Pre SHENG Flow: tsoummers 04:48 PM Lesion found in Mid Circumflex. Pre Stenosis: 40 Pre SHENG Flow: tsoummers 04:48 PM Lesion found in Ramus. Pre Stenosis: 40 Pre SHENG Flow: tsoummers 04:49 PM Time: 16:49 Brilinta 180 mg Orally crushed Given by Liana Aviles RN [facility] 04:49 PM Proximal Left Anterior Descending Coronary Artery with 100% stenosis. If graft is supplying this territory, 0 % stenosis. [facility] 04:50 PM Mid/Distal Left Anterior Descending Coronary Artery and diagonal branches with 60% stenosis. If graft is supplying this area, 0 % stenosis [facility] 04:50 PM Circumflex, Obtuse Marginal, Left Posterior Descending, and Left Posterolateral Coronary Arteries with 40 % stenosis. If graft is supplying this area, 0 % stenosis [facility] 04:50 PM Time: 16:35 Patient comfortable and pain free: Yes [facility] 04:50 PM Time: 16:35LOC: 4 = Oriented but drowsy [facility] 04:50 PM Ramus with 40% stenosis. If graft is supplying this area, 0 % stenosis [facility] 04:50 PM Patient out of room: 16:50 to holding room [facility] 05:00 PM Received patient to holding area room 3. Monitors applied. Angiomax and Nitro drips running. [facility] 05:01 PM Time: 17:01 Nitroglycerin 10 mcg/min Intravenous Given by Liana Aviles RN Lora pump [facility] 05:45 PM spoke with core drilling supervisor regarding stat clean. waiting for transfer to [address] [place] [address] 05:55 PM Cardiac rehab here to consult patient [facility] 06:00 PM T [facility] RT spoke with dye house vat worker Leelee regarding stat clean. [facility] 06:02 PM Patient voided and had liquid stool on bedpan [facility] 06:27 PM Called 2N for update on bed clean. No answer [facility] 06:42 PM Called 2N housekeeping is cleaning room at this time [facility] 07:00 PM called 2N bed is clean waiting to give report bob 07:07 PM Report given to Gigi LENTZ Pt taken to Room #10. 19:07 bob 07:08 PM Patient out of room: 19:08 bob Complications Complication None Hemodynamics Pressures Site Systolic/A Wave Diastolic/V Wave Mean AO 154 78 113 AO 147 82 114 AO 158 90 123 AO 170 92 130 AO 172 59 108 AO 161 81 119 AO 160 58 104 AO 172 90 129 Post Procedure Information Blood Pressure: 175/76 mmHg Rhythm: Atrial Fibrillation Post procedural instructions were given Site Checks Time Location Status Staff Sheath In? Note 04:45 PM Rt Groin No bleeding/hematoma Sites, Jessica RT (R) 05:00 PM Rt Groin No bleeding/ No Hematoma Jessi Armstrong RN Yes 05:15 PM Rt Groin No bleeding/ No Hematoma Jessi Armstrong RN Yes 05:30 PM Rt Groin No bleeding/ No Hematoma Jessi Armstrong RN Yes 05:45 PM Rt Groin No bleeding/ No Hematoma Jessi Armstrong RN Yes 06:00 PM Rt Groin No bleeding/ No Hematoma Jessi Armstrong RN Yes 06:15 PM Rt Groin No bleeding/ No Hematoma Jessi Armstrong RN Yes 06:30 PM Rt Groin No bleeding/ No Hematoma Jessi Armstrong RN Yes 06:45 PM Rt Groin No bleeding/ No Hematoma Jessi Armstrong RN Yes 07:00 PM Rt Groin No bleeding/ No Hematoma Jessi Armstrong RN Yes Pulses Time Site Pre-Procedure Post-Procedure Note Bilateral DP & PT 2+ Bilateral radial 06/06/2018 5:00:00 PM Bilateral DP & PT 206/06/2018 5:15:00 PM Bilateral DP & PT 206/06/2018 5:30:00 PM Bilateral DP & PT 206/06/2018 5:45:00 PM Bilateral DP & PT 206/06/2018 6:00:00 PM Bilateral DP & PT 206/06/2018 6:15:00 PM Bilateral DP & PT 206/06/2018 6:30:00 PM Bilateral DP & PT 2+ 06/06/2018 6:45:00 PM Bilateral DP & PT 206/06/2018 7:00:00 PM Bilateral DP & PT 2+ Updated by Jessi Armstrong RN on 06/06/2018 7:08:34 PM electronically signed on 06/06/2018 7:09:27 PM with status of Final
[2018-06-06] MEDS ORDERED: *HR* Atropine Sulfate 1 MG/10 ML SYRINGE ONE (21:03)
[2018-06-06] MEDS: Gentamicin Oint 15 GM TUBE TP SCH (22:08)
[2018-06-07 04:54] LABS: Hematocrit 33.1 % (35.3-44.9)
[2018-06-07 04:58] LABS: Hemoglobin 10.1 g/dL (11.5-15.4)
[2018-06-07 05:14] LABS: Calcium 8.6 mg/dL (8.6-10.3); Potassium 4.6 mEq/L (3.5-5.1)
[2018-06-07] MEDS: Insulin LISPRO 300 UNITS/3 ML VIAL SQ SCH ×2 (08:02→11:22)
[2018-06-07] MEDS: Famotidine 20 MG TABLET PO SCH (08:14)
[2018-06-07] MEDS: *HR* Acetylcysteine 20% 600 MG/3 ML ORAL SYRINGE PO SCH (08:14)
[2018-06-07] MEDS: Cholecalciferol (D-3) 1,000 UNIT TABLET PO SCH (08:14)
[2018-06-07] MEDS: Aspirin 81 MG TAB.CHEW PO SCH (08:14)
[2018-06-07] MEDS: Gentamicin Oint 15 GM TUBE TP SCH (08:15)
[2018-06-07] MEDS: Insulin NPH/REG 70/30 100 UNIT/ML (x5UNIT) SQ SCH (08:15)
--- NOTE | 2018-06-07 09:09 | Nephrology Progress Note ---
Date of Encounter: 06/07/18 Time of Encounter: 09:06 - Assessment and Plan (1) Acute kidney injury superimposed on CKD Current Visit: No Status: Acute Pt had HD dependent ASHLEY in December of 2017. Has been off HD for 1 month Permacath was removed on 06/02/18. Follow a renal protective strategy with heart cath tomorrow. Avoid nephrotoxins and renal dose all medications. Strict I/O. BMP 1-2 days after discharge, anticipate d/c for today. (2) Essential hypertension Current Visit: No Status: Chronic Per cardiology. (3) CAD (coronary artery disease) Current Visit: Yes Status: Acute per cardiology Heart cath yesterday. Stent placed to right PDA. Qualifiers: Coronary Disease-Associated Artery/Lesion type: unspecified vessel or lesion type [place] vs. transplanted heart: [place] heart Associated angina: with unspecified angina Qualified Code(s): I25.119 - Atherosclerotic heart disease of [place] coronary artery with unspecified angina pectoris Subjective Principal diagnosis: CKD, heart cath scheduled Interval history: Pt seen and examined, doing well. Denies CP/SOB. Objective - Vital Signs Vital signs: Vital Signs Temp Pulse Resp BP Pulse Ox 06/07/18 08:41 95 06/07/18 07:13 97.8 F 69 18 134/57 94 06/07/18 03:49 97.7 F 79 18 142/55 97 06/07/18 03:00 81 134/61 06/07/18 02:00 67 128/52 06/07/18 01:00 67 139/47 06/07/18 00:00 81 150/56 06/06/18 23:48 98.6 F 83 17 139/62 95 06/06/18 23:00 87 144/58 06/06/18 22:45 90 153/60 06/06/18 22:30 93 161/67 06/06/18 22:15 95 178/68 06/06/18 22:00 98 169/142 06/06/18 21:46 89 140/59 06/06/18 21:42 86 141/56 06/06/18 21:37 90 143/56 06/06/18 21:33 91 151/58 06/06/18 21:29 91 159/60 06/06/18 21:24 93 153/59 06/06/18 21:16 91 153/59 06/06/18 21:00 92 157/59 06/06/18 20:30 90 152/58 06/06/18 20:00 94 157/57 06/06/18 19:45 93 162/58 06/06/18 19:35 99.4 F 89 16 159/63 97 06/06/18 19:30 90 173/70 06/06/18 15:14 97.8 F 104 16 160/69 100 06/06/18 11:54 97.6 F 96 18 159/70 96 Intake and Output 06/06/18 06/07/18 06/07/18 23:59 07:59 15:59 Intake Total 200 / 200 Output Total 200 / 200 100 / 100 Balance -200 / -200 -100 / -100 200 / 200 Intake: Oral 200 / 200 Output: Urine 200 / 200 100 / 100 Other: Weight 53.8 kg Blood Glucose* 332 93 Patient Weight 06/07/18 23:59 Weight 53.8 kg - General Appearance General appearance: Present: well-developed, well-nourished EENT: Present: ATNC, hearing intact, vision intact Neck: Present: supple Respiratory: Present: clear Cardiology: Present: no edema, normal S1, normal S2 Gastrointestinal: Present: normoactive bowel sounds, no tenderness, no guarding Integumentary: Present: no rash, warm and dry Neurologic: Present: alert and oriented x3 Psychiatric: Present: mood/affect appropriate, cooperative - Lab 06/07/18 04:03 06/07/18 04:03 Most recent lab results Calcium 8.6 mg/dL (8.6-10.3) 06/07/18 04:03 - VTE Reasons for not Prescribing Prophylaxis: Treatment not Indicated - Low risk for VTE Consult Discharge Plan - Plan Referrals: Tawana Quintero, [employer] [Primary Care Provider] - (sent fax over on 06-07-18 @ [id number] )
--- NOTE | 2018-06-07 10:49 | Discharge Summary ---
- NOTES TO OUTPATIENT PROVIDER Notes to Outpatient Provider: Have BMP drawn on tuesday06/09/18. Orders not resulted at time of discharge: Pending orders 06/06/18 16:50 ECG 12 lead ECG [ECG] Stat 06/08/18 04:00 BMP [Basic Metabolic Panel] AM 0400 Date of Encounter: 06/07/18 Time of Encounter: 10:47 - Discharge Diagnosis (1) Coronary artery disease Priority: Primary Status: Chronic Comments: LHC recommended for recent NSTEMI (not this admit). LHC previously not completed to allow for recover of kidney function prior to proceeding. Qualifiers: Coronary Disease-Associated Artery/Lesion type: bypass graft [place] vs. transplanted heart: [place] heart Associated angina: without angina Qualified Code(s): I25.810 - Atherosclerosis of coronary artery bypass graft(s) without angina pectoris (2) CKD (chronic kidney disease) stage 4, GFR 15-29 ml/min Priority: Primary Status: Chronic (3) Type 2 diabetes mellitus with diabetic nephropathy, with long-term current use of insulin Priority: Secondary Status: Chronic - Hospital Course Hospital course: Ms. Andres is a 73 year old female with past medical history of CAD s/p CABG, recent [place], DM type II, CKD stage IV with recent ASHLEY requiring dialysis. She presented for LHC recommended after her recent [place] 01/2018. 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 She was admitted prior to her LHC for IV hydration as a renal protective strategy. Her potassium was elevated at 5.9 on admission. Re-check potassium was 5.3 and now 4.6. LHC revealed 2/3 patent bypass grafts including PATRICK-LAD, and SVG to PDA. The LIAN-ramus was occluded. She received LAYLA to the right PDA. There was no complication from her procedure. She denies chest pain. EKG completed this morning shows NSR with no acute ST changes. Kidney function remains stable. She is recommended to have BMP in two days. No complications from right femoral access site. Importance of DAPT with asa and plavix uninterrupted for minimum of one year discussed and she voiced understanding. Continue statin and BB. Activity restrictions reviewed as stated above. Out-pt f/u scheduled with Yuan Moreno CNP. LHC: LMCA is angiographically free of disease. 100% stenosis in the Proximal LAD. PATRICK-LAD was patent. There is a 60% stenosis in the Mid LAD distal to the graft anastamosis. Reviewed by director of admissions and medical management was recommended. Consider PCI in future if needed. There is a 30% stenosis in the 1st Diagonal. 40% stenosis in the Proximal Circumflex. 40% stenosis in the Mid Circumflex. 40% stenosis in the Ramus. Lian-Ramus was occluded. 50% instent restenosis in the Proximal RCA, 50% stenosis in the Mid RCA, 80% stenosis in the Distal RCA. 95% stenosis in the Right PDA s/p LAYLA. SVG-RPDA was patent. - Time Spent with Patient Total time spent providing and/or coordinating discharge services: Greater than 30 minutes (d/c planning, med-rec, summary) - Discharge Medications Prescriptions: Ticagrelor [Brilinta] 90 mg PO BID #60 tablet Home Medications: Metoprolol [Lopressor] 12.5 mg PO BID 07/31/16 [History] Ranitidine HCl [Heartburn Relief] 150 mg PO BID 07/31/16 [History] Ergocalciferol (VITAMIN D2) [Vitamin D2 (50,000 UNIT)] 50,000 unit PO Q14D 08/01 [History] Rosuvastatin [Crestor] 40 mg PO HS #30 tablet 08/02/16 [Rx] Nitroglycerin [Nitrostat] 0.4 mg SL Q5M PRN 01/25/18 [History] Aspirin 81 mg PO DAILY tab.chew 02/20/18 [Rx] Insulin NPH Hum/Reg Insulin Hm [Novolin 70-30 100 Unit/ml Vial] 12 unit SQ QPM 06/05/18 [History] Insulin NPH Hum/Reg Insulin Hm [Novolin 70-30 100 Unit/ml Vial] 30 unit SQ QAM 06/05/18 [History] Ticagrelor [Brilinta] 90 mg PO BID #60 tablet 06/07/18 [Rx] Allergies/Adverse Reactions: 3 Allergy/AdvReac Type Severity Reaction Status Date / Time codeine Allergy Rash Verified 03/03/18 07:01 losartan [From Cozaar] Allergy See Verified 03/03/18 07:01 Comments lisinopril AdvReac Cough Verified 03/03/18 07:01 promethazine [From Phenergan] AdvReac Confusion Verified 03/03/18 07:01 Date of admission: 06/05/18 10:58 Primary care physician: Tawana Quintero CNP Consults: 06/05/18 15:52 Consult to Nutrition [CONS] Routine Comment: Consulting Provider: NUTRITION Reason for Dietary Consult: MST Score 06/06/18 08:34 Consult to Nephrology [CONS] Routine Consulting Provider: Kidney Winter/BOLA/ISHA/CHAGO Reason for Consult: pre cath hydration-- per discussion with Dr. Stein; seen already by Nephrology Call Completed: Yes 06/06/18 16:50 Consult to Cardiac Rehabilitation-Phase1 [CONS] Routine Comment: Reason for Consult: post op PCI Call Completed: Yes Discharging clinician: Pedro Cardoza Anticipated date of discharge: 06/07/18 Physical Examination Vital Signs, Last 4 Hours Temp Pulse Resp BP Pulse Ox 06/07/18 08:41 95 06/07/18 07:13 97.8 F 69 18 134/57 94 General: Conversant, No Apparent Distress HEENT: Atraumatic, Normocephaly, Mucus Membranes Moist Neck: No JVD, Normal carotid pulses Cardiac: Reg Rate and Rhythm, Normal S1 and S2, No Murmur Lungs: Normal Breath Sounds, No Wheeze, Rales, Rhonchi Neuro: Alert and responsive, No focal deficits noted Abdomen: Soft, Non-Tender Skin: No rashes noted on visualized skin Musculoskeletal: No Chest Wall Tenderness Extremities: No Clubbing, No Cyanosis, No Edema, Normal Pulses, Other (Right femoral access dressing removed. No hematoma. Pea sized knot noted. ) - Patient Status Disposition: Home, Self-Care Condition: Fair Overall status at discharge: patient is progressing back to baseline - Discharge Instructions Follow Up With: Tawana Quintero CNP [Primary Care Provider] - 06/12/18 1:00 pm () Yuan Moreno CNP [Advanced Practice Nurse] - - Diet and Activity Activity: increase activity as tolerated Diet: low fat, low cholesterol - VTE Reasons for not Prescribing Prophylaxis: Treatment not Indicated - Low risk for VTE
[2018-06-07] MEDS ORDERED: Acetaminophen 325 MG TABLET PO ONE (11:06)
[2018-06-07] MEDS ORDERED: *HR* Ticagrelor 90 MG TABLET PO SCH (11:30)
[2018-06-07 12:04] VITALS: BP 137/59
--- NOTE | 2018-06-07 15:11 | Electrocardiograph Report ---
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
--- NOTE | 2018-06-07 17:16 | Electrocardiograph Report ---
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
== END 2018-06-07 16:34 | disposition home or self-care (01) ==
LOC: INVDIALAB 10:01 → 2ANU 10:58 → INTOOBSV 10:58 → 2NNU 06-06 17:49
PROVIDERS: ADMIT Internal Medicine Nephrology; ATTEND Internal Medicine Nephrology

== ENCOUNTER 2019-07-31 21:41 | Inpatient (IN) ==
[2019-07-31 22:22] LABS: Basophils % 0.6 %; Eosinophils # 0.1 K/mcL (0.0-0.6); Eosinophils % 1.9 %; Hemoglobin 9.2 g/dL (11.5-15.4); Immature Granulocytes % 0.4 % (0-4); Lymphocytes # 0.5 K/mcL (0.6-4.6); Mean Corpuscular HGB Conc 31.7 g/dL (31.6-35.5); Mean Corpuscular Hemoglobin 30.4 pg (28.0-33.3); Mean Corpuscular Volume 95.7 fL (83.0-100.0); Monocytes # 0.3 K/mcL (0.0-1.3); Monocytes % 5.8 %; Neutrophils # 3.8 K/mcL (1.6-8.9); Platelet Count 147 K/mcL (140-400); Red Blood Count 3.03 M/mcL (3.82-4.97); Red Cell Distribution Width 14.1 % (11.5-14.5); Segmented Neutrophils % 81.3 %; White Blood Count 4.7 K/mcL (4.3-11.1)
[2019-07-31 22:29] LABS: Prothrombin Time 10.9 Seconds (9.4-12.1)
[2019-07-31 22:32] LABS: Activated Partial Thrombo Time 29.6 Seconds (26.0-36.0)
[2019-07-31] MEDS ORDERED: Morphine Sulfate 2 MG/ML SYRINGE IVP ONE (22:33)
[2019-07-31 22:45] LABS: Alanine Aminotransferase 15 Units/L (7-52); Albumin 3.7 g/dL (3.5-5.7); Albumin/Globulin Ratio 1.4 (1.1-2.2); Alkaline Phosphatase 82 Units/L (34-104); Aspartate Amino Transferase 21 Units/L (13-39); BUN/Creatinine Ratio 26 (6-26); Bilirubin,Indirect 0.4 mg/dL (0.0-1.2); Bilirubin,Total 0.4 mg/dL (0.3-1.0); Blood Urea Nitrogen 41 mg/dL (8-23); C-Reactive Protein < 5 mg/L (Less than 10); Calcium 9.3 mg/dL (8.6-10.3); Carbon Dioxide 19 mEq/L (23-29); Chloride 109 mEq/L (98-107); Globulin 2.6 g/dL (2.4-3.5); Glucose 181 mg/dL (70-105); Lipase 26 Units/L (11-82); Osmolality,Calculated 305 (280-300); Potassium 4.9 mEq/L (3.5-5.1); Sodium 140 mEq/L (136-145); Total Protein 6.3 g/dL (6.4-8.9); Troponin I < 0.03 ng/mL (< 0.04); eGFR For African Americans 39 (> 60); eGFR For Non-African Americans 32 (> 60)
[2019-07-31] MEDS ORDERED: Ondansetron 4 MG/2 ML VIAL IVP ONE (22:56)
[2019-08-01] MEDS ORDERED: Aspirin 325 MG TABLET PO ONE (00:01)
[2019-08-01] MEDS ORDERED: Naloxone 0.4 MG/ML INJ IVP PRN ×2 (05:02→09:45)
[2019-08-01] MEDS ORDERED: Ondansetron 4 MG/2 ML VIAL IVP PRN (05:40)
[2019-08-01] MEDS ORDERED: Morphine Sulfate 2 MG/ML SYRINGE IVP PRN ×2 (05:41→09:45)
[2019-08-01] MEDS ORDERED: Dextrose Gel 15 GM/37.5 ML TUBE PO PRN ×4 (05:43→09:45)
[2019-08-01] MEDS ORDERED: D5% in Water 1,000 ML IVC PRN ×2 (05:43→09:45)
[2019-08-01] MEDS ORDERED: *HR* Dextrose 50 % in Water (Syg) 50 ML SYRINGE IVP PRN ×6 (05:43→09:45)
[2019-08-01] MEDS ORDERED: Insulin LISPRO 300 UNITS/3 ML VIAL SQ SCH (06:00)
[2019-08-01 06:35] LABS: Hematocrit 32.6 % (35.3-44.9); Mean Corpuscular HGB Conc 30.7 g/dL (31.6-35.5); Mean Corpuscular Hemoglobin 30.7 pg (28.0-33.3); Mean Platelet Volume 11.7 fL (9.4-12.4); Platelet Count 152 K/mcL (140-400); Red Blood Count 3.26 M/mcL (3.82-4.97); Red Cell Distribution Width 14.4 % (11.5-14.5)
[2019-08-01 06:37] LABS: White Blood Count 9.4 K/mcL (4.3-11.1)
[2019-08-01] MEDS ORDERED: Calcium Gluconate 1gm/50mL 1 GM/50 ML BAG IVPB ONE (07:11)
[2019-08-01 07:14] LABS: Calcium 9.2 mg/dL (8.6-10.3); Potassium 7.1 mEq/L (3.5-5.1)
[2019-08-01] MEDS ORDERED: *HR* Heparin 5,000 UNIT/ML VIAL IVP PRN ×3 (07:17→09:45)
[2019-08-01] MEDS ORDERED: *HR* Heparin 5,000 UNIT/ML VIAL IVP ONE (07:17)
[2019-08-01] MEDS ORDERED: Heparin 25,000 UNIT/250 ML D5W 25,000 UNIT/250 ML IV.SOLN IVC SCH (07:30)
[2019-08-01] MEDS ORDERED: Insulin Human Regular 10 UNIT in 0.9 % Sodium Chloride 10 ML IV ONE (07:38)
[2019-08-01] MEDS ORDERED: Albuterol 2.5 MG/3 ML NEBULIZER IH ONE (07:39)
[2019-08-01] MEDS ORDERED: Insulin Regular, Human 100 UNIT/ML IV PRN ×4 (08:06→09:45)
[2019-08-01] MEDS ORDERED: 0.9 % Sodium Chloride 1,000 ML IVC SCH ×6 (08:15→09:45)
[2019-08-01] MEDS ORDERED: 0.45 % Sodium Chloride w/KCl 20 MEQ/1,000 ML MLS IVC SCH ×4 (08:15→09:45)
[2019-08-01 08:22] LABS: VBG HCO3 19 mEq/L (21-27); VBG PCO2 43 mmHg (41-51); VBG PH 7.25 pH Units (7.32-7.42); VBG PO2 52 mmHg (25-50)
[2019-08-01] MEDS ORDERED: D5% in 0.45% NACL 1,000 ML IVC PRN ×3 (08:22→20:59)
[2019-08-01] MEDS ORDERED: D5% in 0.45% NACL w KCl 20 MEQ/1,000 ML MLS IVC PRN ×2 (08:22→09:45)
[2019-08-01 08:26] LABS: Heparin anti-factor XA UFH 0.05 IU/mL (0.30-0.70); Prothrombin Time 10.9 Seconds (9.4-12.1)
[2019-08-01] MEDS ORDERED: Insulin Human Regular 100 UNIT in 0.9 % Sodium Chloride 100 ML IVC SCH (08:30)
[2019-08-01] MEDS ORDERED: 0.9 % Sodium Chloride 1,000 ML ONE (08:39)
[2019-08-01 08:57] LABS: Potassium 5.2 mEq/L (3.5-5.1)
[2019-08-01] MEDS ORDERED: Aspirin Enteric Coated 81 MG Tablet PO SCH (09:28)
[2019-08-01] MEDS: Albuterol 2.5 MG/3 ML NEBULIZER IH ONE ×2 (10:27→10:30)
[2019-08-01] MEDS: Pantoprazole 40 MG VIAL IVP SCH (10:30)
[2019-08-01] MEDS: Insulin Human Regular 100 UNIT in 0.9 % Sodium Chloride 100 ML IVC SCH (10:30)
[2019-08-01] MEDS: Ondansetron 4 MG/2 ML VIAL IVP PRN (10:46)
[2019-08-01] MEDS: 0.9 % Sodium Chloride 1,000 ML IVC SCH ×2 (10:51→16:34)
[2019-08-01] MEDS: Heparin 25,000 UNIT/250 ML D5W 25,000 UNIT/250 ML IV.SOLN IVC SCH (10:52)
[2019-08-01 12:44] LABS: Hematocrit 30.5 % (35.3-44.9); Hemoglobin 9.6 g/dL (11.5-15.4)
[2019-08-01 12:47] LABS: VBG HCO3 20 mEq/L (21-27); VBG PCO2 43 mmHg (41-51); VBG PH 7.27 pH Units (7.32-7.42); VBG PO2 161 mmHg (25-50)
[2019-08-01 13:05] LABS: Calcium 9.8 mg/dL (8.6-10.3); Magnesium 2.6 mg/dL (1.6-2.6); Phosphorous 3.2 mg/dL (2.7-4.5); Potassium 4.8 mEq/L (3.5-5.1)
[2019-08-01] MEDS ORDERED: Perflutren Lipid Microsphere 1.3 ML in 0.9 % Sodium Chloride 8.7 ML IVP ONE (15:45)
[2019-08-01 18:49] LABS: VBG HCO3 18 mEq/L (21-27); VBG PCO2 32 mmHg (41-51); VBG PH 7.36 pH Units (7.32-7.42); VBG PO2 163 mmHg (25-50)
[2019-08-01 18:53] LABS: Hematocrit 27.9 % (35.3-44.9); Hemoglobin 8.5 g/dL (11.5-15.4)
[2019-08-01 19:06] LABS: Calcium 9.1 mg/dL (8.6-10.3); Magnesium 2.4 mg/dL (1.6-2.6); Phosphorous 2.9 mg/dL (2.7-4.5)
[2019-08-01 19:07] LABS: Magnesium 2.4 mg/dL (1.6-2.6); Phosphorous 2.9 mg/dL (2.7-4.5); Potassium 5.1 mEq/L (3.5-5.1)
[2019-08-01] MEDS ORDERED: D5% in 0.45% NACL w KCl 20 MEQ/1,000 ML MLS IVC ONE (21:03)
[2019-08-01] MEDS: D5% in 0.45% NACL w KCl 20 MEQ/1,000 ML MLS IVC PRN (21:37)
[2019-08-01 22:57] LABS: Hematocrit 29.7 % (35.3-44.9); Hemoglobin 9.2 g/dL (11.5-15.4)
[2019-08-01 23:17] LABS: Calcium 8.9 mg/dL (8.6-10.3); Magnesium 2.4 mg/dL (1.6-2.6); Phosphorous 3.2 mg/dL (2.7-4.5); Potassium 5.2 mEq/L (3.5-5.1)
[2019-08-02] MEDS: *HR* Heparin 5,000 UNIT/ML VIAL IVP PRN (00:12)
[2019-08-02] MEDS: Insulin Human Regular 100 UNIT in 0.9 % Sodium Chloride 100 ML IVC SCH ×3 (00:28→05:46)
[2019-08-02] MEDS: D5% in 0.45% NACL w KCl 20 MEQ/1,000 ML MLS IVC PRN ×2 (02:07→06:26)
[2019-08-02 03:24] LABS: Calcium 8.6 mg/dL (8.6-10.3); Magnesium 2.2 mg/dL (1.6-2.6); Potassium 4.4 mEq/L (3.5-5.1)
[2019-08-02 03:47] LABS: Hemoglobin 8.6 g/dL (11.5-15.4); Mean Corpuscular HGB Conc 30.7 g/dL (31.6-35.5); Mean Corpuscular Hemoglobin 30.6 pg (28.0-33.3); Mean Corpuscular Volume 99.6 fL (83.0-100.0); Mean Platelet Volume 10.9 fL (9.4-12.4); Platelet Count 137 K/mcL (140-400); Red Blood Count 2.81 M/mcL (3.82-4.97); Red Cell Distribution Width 14.7 % (11.5-14.5); White Blood Count 11.9 K/mcL (4.3-11.1)
[2019-08-02 03:51] LABS: VBG HCO3 18 mEq/L (21-27); VBG PCO2 32 mmHg (41-51); VBG PH 7.36 pH Units (7.32-7.42); VBG PO2 175 mmHg (25-50)
[2019-08-02 04:06] LABS: Calcium 8.7 mg/dL (8.6-10.3); Potassium 4.6 mEq/L (3.5-5.1)
[2019-08-02] MEDS ORDERED: Insulin DETEMIR 100 UNIT/ML X5UNITS SQ ONE (06:23)
[2019-08-02] MEDS: Pantoprazole 40 MG VIAL IVP SCH (08:13)
[2019-08-02] MEDS: Aspirin Enteric Coated 81 MG Tablet PO SCH (08:13)
[2019-08-02 09:29] LABS: Calcium 8.5 mg/dL (8.6-10.3); Magnesium 2.1 mg/dL (1.6-2.6); Phosphorous 2.1 mg/dL (2.7-4.5); Potassium 5.2 mEq/L (3.5-5.1)
[2019-08-02 11:14] LABS: Hematocrit 27.8 % (35.3-44.9); Hemoglobin 8.7 g/dL (11.5-15.4)
[2019-08-02] MEDS: Insulin LISPRO 300 UNITS/3 ML VIAL SQ SCH ×2 (11:46→16:50)
[2019-08-02 12:26] LABS: Estimated Average Glucose 243 mg/dl
[2019-08-02 12:37] LABS: BUN/Creatinine Ratio 22 (6-26); Blood Urea Nitrogen 35 mg/dL (8-23); Calcium 8.6 mg/dL (8.6-10.3); Carbon Dioxide 14 mEq/L (23-29); Chloride 117 mEq/L (98-107); Glucose 201 mg/dL (70-105); Magnesium 2.1 mg/dL (1.6-2.6); Osmolality,Calculated 302 (280-300); Potassium 5.9 mEq/L (3.5-5.1); Sodium 139 mEq/L (136-145); eGFR For African Americans 38 (> 60); eGFR For Non-African Americans 31 (> 60)
[2019-08-02 17:54] LABS: Calcium 8.4 mg/dL (8.6-10.3); Potassium 5.4 mEq/L (3.5-5.1)
[2019-08-02] MEDS: Melatonin 3 MG TABLET PO PRN (21:29)
[2019-08-03] MEDS: Heparin 25,000 UNIT/250 ML D5W 25,000 UNIT/250 ML IV.SOLN IVC SCH ×2 (00:12→19:34)
[2019-08-03] MEDS: Insulin LISPRO 300 UNITS/3 ML VIAL SQ SCH ×5 (00:13→20:53)
[2019-08-03 01:43] LABS: Basophils % 0.4 %; Eosinophils # 0.2 K/mcL (0.0-0.6); Eosinophils % 2.1 %; Hematocrit 25.3 % (35.3-44.9); Hemoglobin 7.7 g/dL (11.5-15.4); Immature Granulocytes % 0.2 % (0-4); Lymphocytes # 0.8 K/mcL (0.6-4.6); Lymphocytes % 10.3 %; Mean Corpuscular HGB Conc 30.4 g/dL (31.6-35.5); Mean Corpuscular Hemoglobin 30.8 pg (28.0-33.3); Mean Corpuscular Volume 101.2 fL (83.0-100.0); Mean Platelet Volume 11.4 fL (9.4-12.4); Monocytes # 0.6 K/mcL (0.0-1.3); Monocytes % 6.8 %; Neutrophils # 6.5 K/mcL (1.6-8.9); Platelet Count 111 K/mcL (140-400); Red Cell Distribution Width 14.6 % (11.5-14.5); Segmented Neutrophils % 80.2 %; White Blood Count 8.1 K/mcL (4.3-11.1)
[2019-08-03 02:02] LABS: Calcium 8.2 mg/dL (8.6-10.3); Potassium 5.2 mEq/L (3.5-5.1)
[2019-08-03] MEDS: Pantoprazole 40 MG VIAL IVP SCH (07:58)
[2019-08-03] MEDS: Aspirin Enteric Coated 81 MG Tablet PO SCH (07:58)
[2019-08-03] MEDS ORDERED: Lactulose Oral Soln 20 GM/30 ML UDC PO PRN (10:52)
[2019-08-03] MEDS ORDERED: D5% in Water 1,000 ML IVC PRN (12:02)
[2019-08-03] MEDS ORDERED: Dextrose Gel 15 GM/37.5 ML TUBE PO PRN ×2 (12:02)
[2019-08-03 12:51] LABS: Hematocrit 33.7 % (35.3-44.9)
[2019-08-03 12:58] LABS: Hemoglobin 10.2 g/dL (11.5-15.4)
[2019-08-03] MEDS: *HR* Heparin 5,000 UNIT/ML VIAL IVP PRN (17:55)
[2019-08-03 19:27] LABS: Hematocrit 26.6 % (35.3-44.9)
[2019-08-03 20:04] LABS: Hemoglobin 8.3 g/dL (11.5-15.4)
[2019-08-04 01:21] LABS: Basophils % 0.4 %; Eosinophils # 0.2 K/mcL (0.0-0.6); Eosinophils % 2.9 %; Hematocrit 26.4 % (35.3-44.9); Hemoglobin 8.1 g/dL (11.5-15.4); Immature Granulocytes % 0.4 % (0-4); Lymphocytes # 0.6 K/mcL (0.6-4.6); Lymphocytes % 11.7 %; Mean Corpuscular HGB Conc 30.7 g/dL (31.6-35.5); Mean Corpuscular Hemoglobin 30.2 pg (28.0-33.3); Mean Corpuscular Volume 98.5 fL (83.0-100.0); Mean Platelet Volume 11.5 fL (9.4-12.4); Monocytes # 0.6 K/mcL (0.0-1.3); Monocytes % 10.2 %; Neutrophils # 4.1 K/mcL (1.6-8.9); Platelet Count 115 K/mcL (140-400); Red Blood Count 2.68 M/mcL (3.82-4.97); Red Cell Distribution Width 14.2 % (11.5-14.5); Segmented Neutrophils % 74.4 %; White Blood Count 5.5 K/mcL (4.3-11.1)
[2019-08-04 01:31] LABS: Calcium 8.2 mg/dL (8.6-10.3)
[2019-08-04] MEDS: Aspirin Enteric Coated 81 MG Tablet PO SCH (07:44)
[2019-08-04] MEDS: Pantoprazole 40 MG VIAL IVP SCH (07:44)
[2019-08-04] MEDS: Ondansetron 4 MG/2 ML VIAL IVP PRN (07:50)
[2019-08-04] MEDS: Insulin LISPRO 300 UNITS/3 ML VIAL SQ SCH ×4 (08:01→20:49)
[2019-08-04] MEDS ORDERED: Insulin DETEMIR 100 UNIT/ML X5UNITS SQ ONE (08:46)
[2019-08-04] MEDS: *HR* Heparin 5,000 UNIT/ML VIAL SQ SCH (16:20)
[2019-08-04] MEDS ORDERED: Insulin DETEMIR 100 UNIT/ML X5UNITS SQ SCH (21:00)
[2019-08-05] MEDS: *HR* Heparin 5,000 UNIT/ML VIAL SQ SCH ×2 (06:26→15:50)
[2019-08-05] MEDS: Insulin LISPRO 300 UNITS/3 ML VIAL SQ SCH ×4 (07:47→23:14)
[2019-08-05] MEDS: Pantoprazole 40 MG VIAL IVP SCH (07:48)
[2019-08-05] MEDS: Aspirin Enteric Coated 81 MG Tablet PO SCH (07:48)
[2019-08-05 09:27] LABS: Hematocrit 27.3 % (35.3-44.9); Hemoglobin 8.4 g/dL (11.5-15.4)
[2019-08-05 10:32] LABS: Calcium 8.2 mg/dL (8.6-10.3); Potassium 4.5 mEq/L (3.5-5.1)
[2019-08-05] MEDS ORDERED: Ringers Solution, Lactated 1,000 ML IVC SCH ×2 (11:45→20:15)
[2019-08-05 19:12] LABS: Calcium 8.6 mg/dL (8.6-10.3); Potassium 4.5 mEq/L (3.5-5.1)
[2019-08-06] MEDS ORDERED: Insulin LISPRO 300 UNITS/3 ML VIAL SQ ONE ×2 (03:19→04:55)
[2019-08-06] MEDS: Ondansetron 4 MG/2 ML VIAL IVP PRN (03:27)
[2019-08-06 05:30] LABS: Hemoglobin 8.2 g/dL (11.5-15.4)
[2019-08-06] MEDS: *HR* Heparin 5,000 UNIT/ML VIAL SQ SCH ×2 (05:47→16:52)
[2019-08-06 05:54] LABS: Calcium 8.3 mg/dL (8.6-10.3); Potassium 5.1 mEq/L (3.5-5.1)
[2019-08-06] MEDS: Aspirin Enteric Coated 81 MG Tablet PO SCH (08:13)
[2019-08-06] MEDS: Pantoprazole 40 MG VIAL IVP SCH (08:13)
[2019-08-06] MEDS: Insulin LISPRO 300 UNITS/3 ML VIAL SQ SCH ×4 (08:13→21:43)
[2019-08-06] MEDS ORDERED: Insulin DETEMIR 100 UNIT/ML X5UNITS SQ ONE (09:09)
[2019-08-06] MEDS ORDERED: Insulin DETEMIR 100 UNIT/ML X5UNITS SQ SCH (10:49)
[2019-08-06] MEDS ORDERED: Ringers Solution, Lactated 1,000 ML IVC SCH (12:30)
[2019-08-06] MEDS: 0.9 % Sodium Chloride 1,000 ML IVC SCH (16:52)
[2019-08-06 17:41] LABS: Sodium, Urine 87.4 mEq/L
[2019-08-06 18:48] LABS: Calcium 8.6 mg/dL (8.6-10.3); Potassium 4.7 mEq/L (3.5-5.1)
[2019-08-06] MEDS ORDERED: Bisacodyl 10 MG RECTAL SUPPOSITORY RC ONE (22:40)
[2019-08-07] MEDS: Acetaminophen 325 MG TABLET PO PRN ×2 (00:38→09:25)
[2019-08-07] MEDS: Ondansetron 4 MG/2 ML VIAL IVP PRN (00:38)
[2019-08-07] MEDS: 0.9 % Sodium Chloride 1,000 ML IVC SCH ×2 (04:12→14:57)
[2019-08-07 05:00] LABS: Calcium 8.2 mg/dL (8.6-10.3); Potassium 5.1 mEq/L (3.5-5.1)
[2019-08-07] MEDS: *HR* Heparin 5,000 UNIT/ML VIAL SQ SCH ×2 (05:57→17:23)
[2019-08-07] MEDS ORDERED: 0.9 % Sodium Chloride 1,000 ML IVC SCH (06:00)
[2019-08-07] MEDS ORDERED: *HR* Dextrose 50 % in Water (Syg) 50 ML SYRINGE IVP PRN (07:54)
[2019-08-07] MEDS ORDERED: Insulin Human Regular 100 UNIT in 0.9 % Sodium Chloride 100 ML IVC SCH (08:00)
[2019-08-07] MEDS: Aspirin Enteric Coated 81 MG Tablet PO SCH (09:26)
[2019-08-07] MEDS: *HR* Acetylcysteine 20% 600 MG/3 ML ORAL SYRINGE PO SCH ×2 (12:50→21:12)
[2019-08-07] MEDS: Insulin LISPRO 300 UNITS/3 ML VIAL SQ SCH (17:24)
[2019-08-07] MEDS ORDERED: Insulin DETEMIR 100 UNIT/ML X5UNITS SQ SCH (21:00)
[2019-08-07] MEDS ORDERED: Insulin LISPRO 300 UNITS/3 ML VIAL SQ SCH (21:00)
[2019-08-07] MEDS ORDERED: Bisacodyl 10 MG RECTAL SUPPOSITORY RC ONE (22:20)
[2019-08-08] MEDS: 0.9 % Sodium Chloride 1,000 ML IVC SCH ×2 (01:08→21:42)
[2019-08-08 04:50] LABS: Calcium 7.7 mg/dL (8.6-10.3); Potassium 4.3 mEq/L (3.5-5.1)
[2019-08-08] MEDS: *HR* Heparin 5,000 UNIT/ML VIAL SQ SCH ×2 (05:00→16:45)
[2019-08-08] MEDS: Insulin LISPRO 300 UNITS/3 ML VIAL SQ SCH ×2 (09:00→11:27)
[2019-08-08] MEDS: Aspirin Enteric Coated 81 MG Tablet PO SCH (09:40)
[2019-08-08] MEDS: *HR* Acetylcysteine 20% 600 MG/3 ML ORAL SYRINGE PO SCH ×2 (09:40→21:35)
[2019-08-08] MEDS ORDERED: 0.9 % Sodium Chloride 2,000 ML ONE (10:43)
[2019-08-08] MEDS ORDERED: *HR* FentaNYL (PF) 100 MCG/2 ML VIAL ONE (10:43)
[2019-08-08] MEDS ORDERED: *HR* Midazolam HCl 2 MG/2 ML VIAL ONE (10:43)
[2019-08-08] MEDS ORDERED: Heparin 1,000 UNITS/500 mL 500 ML ONE (10:44)
[2019-08-08] MEDS ORDERED: *HR* Heparin 10,000 UNIT/10 ML VIAL ONE (10:44)
[2019-08-08] MEDS ORDERED: Nitroglycerin 1,000 MCG/10 ML VIAL IV ONE (10:44)
[2019-08-08] MEDS ORDERED: ISOVUE-370 200 ML INFUS..BTL ONE (10:44)
[2019-08-08] MEDS ORDERED: Insulin LISPRO 300 UNITS/3 ML VIAL SQ SCH (16:30)
[2019-08-08] MEDS: Insulin DETEMIR 100 UNIT/ML X5UNITS SQ SCH (21:35)
[2019-08-09] MEDS: *HR* Heparin 5,000 UNIT/ML VIAL SQ SCH ×2 (05:54→16:46)
[2019-08-09] MEDS ORDERED: Acetaminophen 325 MG TABLET PO PRN (06:02)
[2019-08-09 06:03] LABS: Basophils % 0.3 %; Eosinophils # 0.3 K/mcL (0.0-0.6); Eosinophils % 4.8 %; Immature Granulocytes % 0.3 % (0-4); Lymphocytes # 0.6 K/mcL (0.6-4.6); Lymphocytes % 10.2 %; Mean Corpuscular HGB Conc 30.8 g/dL (31.6-35.5); Mean Corpuscular Hemoglobin 30.7 pg (28.0-33.3); Mean Corpuscular Volume 99.6 fL (83.0-100.0); Mean Platelet Volume 11.1 fL (9.4-12.4); Monocytes # 0.6 K/mcL (0.0-1.3); Monocytes % 10.2 %; Neutrophils # 4.6 K/mcL (1.6-8.9); Platelet Count 146 K/mcL (140-400); Red Blood Count 2.61 M/mcL (3.82-4.97); Red Cell Distribution Width 14.8 % (11.5-14.5); Segmented Neutrophils % 74.2 %; White Blood Count 6.3 K/mcL (4.3-11.1)
[2019-08-09 06:22] LABS: Calcium 7.8 mg/dL (8.6-10.3); Magnesium 1.9 mg/dL (1.6-2.6); Phosphorous 2.6 mg/dL (2.7-4.5); Potassium 4.1 mEq/L (3.5-5.1)
[2019-08-09] MEDS: 0.9 % Sodium Chloride 1,000 ML IVC SCH ×2 (09:31→09:39)
[2019-08-09] MEDS: Insulin LISPRO 300 UNITS/3 ML VIAL SQ SCH ×3 (09:37→16:46)
[2019-08-09] MEDS: Aspirin Enteric Coated 81 MG Tablet PO SCH (09:38)
[2019-08-09] MEDS: *HR* Acetylcysteine 20% 600 MG/3 ML ORAL SYRINGE PO SCH (09:39)
[2019-08-09] MEDS: Isosorbide MONOnitrate (24 HR) 30 MG TAB.ER.24H PO SCH (11:38)
[2019-08-09] MEDS: Insulin DETEMIR 100 UNIT/ML X5UNITS SQ SCH (20:48)
[2019-08-09] MEDS: Melatonin 3 MG TABLET PO PRN (20:49)
[2019-08-10 05:45] LABS: Basophils % 0.5 %; Eosinophils # 0.3 K/mcL (0.0-0.6); Hematocrit 25.4 % (35.3-44.9); Hemoglobin 7.9 g/dL (11.5-15.4); Immature Granulocytes % 0.2 % (0-4); Lymphocytes # 0.5 K/mcL (0.6-4.6); Lymphocytes % 11.3 %; Mean Corpuscular HGB Conc 31.1 g/dL (31.6-35.5); Mean Corpuscular Hemoglobin 30.6 pg (28.0-33.3); Mean Corpuscular Volume 98.4 fL (83.0-100.0); Mean Platelet Volume 10.8 fL (9.4-12.4); Monocytes # 0.5 K/mcL (0.0-1.3); Monocytes % 10.9 %; Neutrophils # 3.1 K/mcL (1.6-8.9); Platelet Count 153 K/mcL (140-400); Red Blood Count 2.58 M/mcL (3.82-4.97); Red Cell Distribution Width 14.6 % (11.5-14.5); Segmented Neutrophils % 71.1 %; White Blood Count 4.3 K/mcL (4.3-11.1)
[2019-08-10 06:07] LABS: % Iron Saturation 16 % (15-50); Iron 30 mcg/dL (50-170); Transferrin 136 mg/dL (203-362)
[2019-08-10 06:24] LABS: Ferritin 459 ng/mL (10-120)
[2019-08-10 06:31] LABS: Folate 14.3 ng/mL (3.0-16.0)
[2019-08-10] MEDS: *HR* Heparin 5,000 UNIT/ML VIAL SQ SCH (06:32)
[2019-08-10 06:41] LABS: Phosphorous 2.5 mg/dL (2.7-4.5); Potassium 3.7 mEq/L (3.5-5.1)
[2019-08-10] MEDS: *HR* Acetylcysteine 20% 600 MG/3 ML ORAL SYRINGE PO SCH ×2 (07:45→08:04)
[2019-08-10] MEDS: Insulin LISPRO 300 UNITS/3 ML VIAL SQ SCH ×2 (07:54→12:04)
[2019-08-10] MEDS: Isosorbide MONOnitrate (24 HR) 30 MG TAB.ER.24H PO SCH (08:03)
[2019-08-10] MEDS: Aspirin Enteric Coated 81 MG Tablet PO SCH (08:03)
[2019-08-10] MEDS ORDERED: Cyanocobalamin (B-12) 1,000 MCG/ML VIAL SQ ONE (08:33)
[2019-08-10 11:12] VITALS: BP 150/56
[2019-08-10] MEDS ORDERED: FLU Vac QV 19-20 (6Month+)/PF 0.5 ML SYRINGE IM ONE (12:08)
[2019-08-11] MEDS ORDERED: Cyanocobalamin (B-12) 1,000 MCG TABLET PO SCH (09:00)
== END 2019-08-10 15:18 | disposition home health service (06) | DRG 280 ==
LOC: EMEROOARM 21:41 → 3BNU 21:41 → SUATTDRO 08-01 01:30 → 3BNU 08-01 01:58 → ICNU 08-01 09:43 → 2NNU 08-01 21:44 → SUATTDRO 08-03 14:40 → 2ANU 08-03 15:38
PROVIDERS: ADMIT Internal Medicine; ATTEND Pharmacist

== ENCOUNTER 2022-02-01 16:06 | Inpatient (IN) ==
[2022-02-01] MEDS ORDERED: Ondansetron 4 MG/2 ML VIAL IVP ONE (16:22)
[2022-02-01] MEDS ORDERED: *HR* HYDROmorphone (PF) 1 MG/ML SYRINGE IVP ONE (16:22)
[2022-02-01 17:07] LABS: Basophils % 0.2 %; Eosinophils # 0.1 K/mcL (0.0-0.6); Eosinophils % 0.8 %; Hematocrit 30.6 % (35.3-44.9); Hemoglobin 9.4 g/dL (11.5-15.4); Immature Granulocytes % 0.8 % (0-4); Lymphocytes # 0.8 K/mcL (0.6-4.6); Lymphocytes % 8.9 %; Mean Corpuscular HGB Conc 30.7 g/dL (31.6-35.5); Mean Corpuscular Hemoglobin 30.2 pg (28.0-33.3); Mean Corpuscular Volume 98.4 fL (83.0-100.0); Mean Platelet Volume 10.9 fL (9.4-12.4); Monocytes # 0.5 K/mcL (0.0-1.3); Monocytes % 5.3 %; Neutrophils # 7.3 K/mcL (1.6-8.9); Platelet Count 179 K/mcL (140-400); Red Blood Count 3.11 M/mcL (3.82-4.97); Red Cell Distribution Width 13.5 % (11.5-14.5); White Blood Count 8.7 K/mcL (4.3-11.1)
[2022-02-01 17:15] LABS: Prothrombin Time 11.4 Seconds (9.4-12.1)
[2022-02-01 17:17] LABS: Activated Partial Thrombo Time 33.2 Seconds (26.0-36.0)
[2022-02-01 17:20] LABS: Bacteria,Urine Few per hpf (None-Few); Bilirubin,Urine Negative (Negative); Blood,Urine Large (Negative); Clarity,Urine Clear (Clear); Color,Urine Light-Yellow (Yellow); Glucose,Urine (UA) Normal (Normal); Hyaline Casts,Urine Few per lpf (None Seen); Ketones,Urine Negative (Negative); Leukocyte Esterase,Urine Negative (Negative); Mucus,Urine Few per lpf (None-Few); Nitrite,Urine Negative (Negative); PH,Urine 5.5 pH Units (5.0-8.0); Protein,Urine 30 mg/dL (Neg-Trace); RBC,Urine 30-50 per hpf (0-3); Specific Gravity,Urine 1.011 (1.010-1.025); Squamous Epithelial Cell,Urine Few per hpf (None-Few); Urobilinogen,Urine Normal (Normal); WBC,Urine 0-3 per hpf (0-3)
[2022-02-01 17:27] LABS: Albumin 3.5 g/dL (3.5-5.7); Albumin/Globulin Ratio 1.5 (1.1-2.2); Bilirubin,Total 0.4 mg/dL (0.3-1.0); Calcium 8.9 mg/dL (8.6-10.3); Globulin 2.4 g/dL (2.4-3.5); Potassium 5.1 mEq/L (3.5-5.1); Total Protein 5.9 g/dL (6.4-8.9)
[2022-02-01] MEDS ORDERED: Naloxone 0.4 MG/ML INJ IVP PRN (17:52)
[2022-02-01] MEDS ORDERED: Nitroglycerin 0.4 MG TAB.SUBL SL PRN (17:54)
[2022-02-01] MEDS ORDERED: Dextrose 4 GM Chewable Tablets PO PRN ×2 (17:55)
[2022-02-01] MEDS ORDERED: D5% in Water 1,000 ML IVC PRN (17:55)
[2022-02-01] MEDS ORDERED: *HR* Dextrose 50 % in Water (Syg) 50 ML SYRINGE IVP PRN (17:55)
[2022-02-01] MEDS ORDERED: Furosemide 20 MG TABLET PO SCH (18:00)
[2022-02-01] MEDS ORDERED: 0.9 % Sodium Chloride 1,000 ML IVC SCH (18:15)
[2022-02-01] MEDS: *HR* HYDROmorphone (PF) 1 MG/ML SYRINGE IVP PRN ×2 (19:11→23:34)
[2022-02-01] MEDS ORDERED: Insulin LISPRO 300 UNITS/3 ML VIAL SUBQ SCH (21:00)
[2022-02-01] MEDS: Mirtazapine 15 MG TABLET PO SCH (21:27)
[2022-02-02] MEDS: *HR* HYDROmorphone (PF) 1 MG/ML SYRINGE IVP PRN ×3 (04:27→18:08)
[2022-02-02 04:41] LABS: Basophils % 0.1 %; Hematocrit 27.8 % (35.3-44.9); Hemoglobin 8.1 g/dL (11.5-15.4); Immature Granulocytes % 0.7 % (0-4); Lymphocytes # 0.5 K/mcL (0.6-4.6); Lymphocytes % 3.5 %; Mean Corpuscular HGB Conc 29.1 g/dL (31.6-35.5); Mean Corpuscular Hemoglobin 30.6 pg (28.0-33.3); Mean Corpuscular Volume 104.9 fL (83.0-100.0); Mean Platelet Volume 11.2 fL (9.4-12.4); Monocytes # 0.8 K/mcL (0.0-1.3); Monocytes % 5.6 %; Neutrophils # 12.7 K/mcL (1.6-8.9); Platelet Count 180 K/mcL (140-400); Red Blood Count 2.65 M/mcL (3.82-4.97); Red Cell Distribution Width 13.5 % (11.5-14.5); Segmented Neutrophils % 90.1 %; White Blood Count 14.1 K/mcL (4.3-11.1)
[2022-02-02] MEDS ORDERED: Calcium Gluconate 1gm/50mL 1 GM/50 ML BAG IVPB ONE (06:12)
[2022-02-02] MEDS ORDERED: Insulin Human Regular 10 UNIT in 0.9 % Sodium Chloride 10 ML IV ONE (06:14)
[2022-02-02] MEDS ORDERED: Furosemide 20 MG/2 ML VIAL IVP ONE (06:14)
[2022-02-02] MEDS: *HR* Enoxaparin 30 MG/0.3 ML SYRINGE SQ SCH (06:46)
[2022-02-02] MEDS: SODIUM ZIRCONIUM CYCLOSILICATE 5 GM POWD.PACK PO SCH ×2 (06:47→13:19)
[2022-02-02] MEDS: *HR* Dextrose 50 % in Water (Syg) 50 ML SYRINGE IVP ONE ×2 (06:47→07:16)
[2022-02-02] MEDS ORDERED: Insulin LISPRO 300 UNITS/3 ML VIAL SUBQ SCH (07:30)
[2022-02-02] MEDS: Insulin LISPRO 300 UNITS/3 ML VIAL SUBQ SCH ×3 (08:00→16:44)
[2022-02-02] MEDS: Isosorbide MONOnitrate (24 HR) 30 MG TAB.ER.24H PO SCH (08:04)
[2022-02-02 10:01] LABS: Calcium 8.9 mg/dL (8.6-10.3); Potassium 7.2 mEq/L (3.5-5.1)
[2022-02-02] MEDS ORDERED: Insulin LISPRO 300 UNITS/3 ML VIAL SUBQ ONE ×2 (10:04→17:59)
[2022-02-02] MEDS ORDERED: D5% in 0.45% NACL 1,000 ML IVC PRN (10:07)
[2022-02-02] MEDS ORDERED: Insulin Regular, Human 100 UNIT/ML IV PRN (10:07)
[2022-02-02] MEDS ORDERED: Insulin Human Regular 5 UNIT in 0.9 % Sodium Chloride 10 ML IV PRN (10:21)
[2022-02-02] MEDS: 0.9 % Sodium Chloride 1,000 ML IVC SCH ×6 (12:21→20:27)
[2022-02-02] MEDS ORDERED: Lidocaine -MPF 1% 5 ML AMPUL INFILT ONE (12:34)
[2022-02-02 13:06] LABS: Basophils % 0.1 %; Eosinophils % 0.1 %; Hematocrit 25.3 % (35.3-44.9); Hemoglobin 7.4 g/dL (11.5-15.4); Immature Granulocytes % 0.6 % (0-4); Lymphocytes % 7.2 %; Mean Corpuscular HGB Conc 29.2 g/dL (31.6-35.5); Mean Corpuscular Hemoglobin 30.2 pg (28.0-33.3); Mean Corpuscular Volume 103.3 fL (83.0-100.0); Monocytes # 1.2 K/mcL (0.0-1.3); Monocytes % 8.8 %; Neutrophils # 11.7 K/mcL (1.6-8.9); Platelet Count 168 K/mcL (140-400); Red Blood Count 2.45 M/mcL (3.82-4.97); Red Cell Distribution Width 13.5 % (11.5-14.5); Segmented Neutrophils % 83.2 %; White Blood Count 14.1 K/mcL (4.3-11.1)
[2022-02-02 13:31] LABS: Calcium 8.8 mg/dL (8.6-10.3); Magnesium 2.1 mg/dL (1.6-2.6); Potassium 5.6 mEq/L (3.5-5.1); Uric Acid 7.7 mg/dL (2.3-7.6)
[2022-02-02] MEDS: Insulin DETEMIR 100 UNIT/ML X5UNITS SUBQ SCH (14:40)
[2022-02-02 17:36] LABS: Protein/Creatinine Ratio,Urine 0.46 mg/mg (0.00-0.20)
[2022-02-02 17:55] LABS: Calcium 8.3 mg/dL (8.6-10.3); Potassium 6.8 mEq/L (3.5-5.1)
[2022-02-02 19:37] LABS: Sodium, Urine 33.6 mEq/L
[2022-02-02] MEDS: Mirtazapine 15 MG TABLET PO SCH (20:28)
[2022-02-02] MEDS ORDERED: 0.9 % Sodium Chloride 1,000 ML IVC PRN (20:29)
[2022-02-02] MEDS: Acetaminophen IV 1,000 MG/100 ML BAG IVPB PRN (21:36)
[2022-02-02 22:55] LABS: Troponin I 0.56 ng/mL (< 0.04)
[2022-02-02 23:36] LABS: Calcium 8.3 mg/dL (8.6-10.3); Potassium 6.6 mEq/L (3.5-5.1)
[2022-02-02] MEDS ORDERED: *HR* Dextrose 50 % in Water (Syg) 50 ML SYRINGE IVP ONE (23:43)
[2022-02-02] MEDS ORDERED: Insulin Human Regular 5 UNIT in 0.9 % Sodium Chloride 10 ML IV ONE (23:43)
[2022-02-03] MEDS: SODIUM ZIRCONIUM CYCLOSILICATE 5 GM POWD.PACK PO SCH ×2 (02:44→09:26)
[2022-02-03] MEDS: *HR* HYDROmorphone (PF) 1 MG/ML SYRINGE IVP PRN ×4 (03:46→18:35)
[2022-02-03 04:13] LABS: Basophils % 0.1 %; Eosinophils % 0.2 %; Hematocrit 23.4 % (35.3-44.9); Hemoglobin 6.9 g/dL (11.5-15.4); Immature Granulocytes % 0.5 % (0-4); Lymphocytes # 0.8 K/mcL (0.6-4.6); Lymphocytes % 6.4 %; Mean Corpuscular HGB Conc 29.5 g/dL (31.6-35.5); Mean Corpuscular Hemoglobin 30.4 pg (28.0-33.3); Mean Corpuscular Volume 103.1 fL (83.0-100.0); Monocytes # 0.9 K/mcL (0.0-1.3); Monocytes % 7.3 %; Platelet Count 145 K/mcL (140-400); Red Blood Count 2.27 M/mcL (3.82-4.97); Red Cell Distribution Width 13.7 % (11.5-14.5); Segmented Neutrophils % 85.5 %; White Blood Count 12.9 K/mcL (4.3-11.1)
[2022-02-03] MEDS ORDERED: Albuterol 2.5 MG/3 ML NEBULIZER IH ONE (04:17)
[2022-02-03] MEDS ORDERED: *HR* Dextrose 50 % in Water (Syg) 50 ML SYRINGE IVP ONE (04:17)
[2022-02-03 04:41] LABS: Calcium 8.4 mg/dL (8.6-10.3); Potassium 6.3 mEq/L (3.5-5.1)
[2022-02-03] MEDS ORDERED: Insulin Human Regular 5 UNIT in 0.9 % Sodium Chloride 10 ML IV ONE (04:45)
[2022-02-03] MEDS: *HR* Enoxaparin 30 MG/0.3 ML SYRINGE SQ SCH (05:04)
[2022-02-03] MEDS ORDERED: 0.9 % Sodium Chloride 250 ML ONE (06:31)
[2022-02-03] MEDS: Insulin LISPRO 300 UNITS/3 ML VIAL SUBQ SCH ×3 (08:07→18:31)
[2022-02-03] MEDS: Isosorbide MONOnitrate (24 HR) 30 MG TAB.ER.24H PO SCH (09:26)
[2022-02-03] MEDS ORDERED: Perflutren Lipid Microsphere 1.3 ML in 0.9 % Sodium Chloride 8.7 ML IVP PRN (09:59)
[2022-02-03 10:22] LABS: Hematocrit 26.4 % (35.3-44.9); Hemoglobin 8.2 g/dL (11.5-15.4)
[2022-02-03] MEDS ORDERED: Furosemide 40 MG/4 ML VIAL IVP ONE (10:48)
[2022-02-03] MEDS: Insulin DETEMIR 100 UNIT/ML X5UNITS SUBQ SCH (11:38)
[2022-02-03] MEDS: Sodium Bicarbonate 150 MEQ in Water for inj. (sterile) 1,000 ML IVC SCH (11:45)
[2022-02-03] MEDS: *HR* Metoprolol 5 MG/5 ML VIAL IVP SCH ×2 (12:57→18:32)
[2022-02-03 16:48] LABS: Hematocrit 28.4 % (35.3-44.9); Hemoglobin 8.6 g/dL (11.5-15.4)
[2022-02-03] MEDS: Mirtazapine 15 MG TABLET PO SCH (19:34)
[2022-02-03] MEDS: Acetaminophen IV 1,000 MG/100 ML BAG IVPB PRN (23:58)
[2022-02-04] MEDS: *HR* Metoprolol 5 MG/5 ML VIAL IVP SCH ×4 (00:19→18:59)
[2022-02-04] MEDS: *HR* HYDROmorphone (PF) 1 MG/ML SYRINGE IVP PRN ×2 (03:57→11:18)
[2022-02-04] MEDS: Sodium Bicarbonate 150 MEQ in Water for inj. (sterile) 1,000 ML IVC SCH (04:04)
[2022-02-04 04:39] LABS: Calcium 8.3 mg/dL (8.6-10.3); Magnesium 2.1 mg/dL (1.6-2.6); Phosphorous 5.7 mg/dL (2.7-4.5); Potassium 5.4 mEq/L (3.5-5.1)
[2022-02-04 04:46] LABS: Eosinophils # 0.1 K/mcL (0.0-0.6); Eosinophils % 0.9 %; Hematocrit 25.7 % (35.3-44.9); Hemoglobin 8.1 g/dL (11.5-15.4); Immature Granulocytes % 0.6 % (0-4); Lymphocytes # 0.4 K/mcL (0.6-4.6); Lymphocytes % 4.6 %; Mean Corpuscular HGB Conc 31.5 g/dL (31.6-35.5); Mean Corpuscular Volume 98.5 fL (83.0-100.0); Monocytes # 0.7 K/mcL (0.0-1.3); Monocytes % 8.5 %; Neutrophils # 6.8 K/mcL (1.6-8.9); Platelet Count 121 K/mcL (140-400); Red Blood Count 2.61 M/mcL (3.82-4.97); Red Cell Distribution Width 15.1 % (11.5-14.5); Segmented Neutrophils % 85.4 %; White Blood Count 7.9 K/mcL (4.3-11.1)
[2022-02-04] MEDS: Insulin DETEMIR 100 UNIT/ML X5UNITS SUBQ SCH (09:59)
[2022-02-04] MEDS: Isosorbide MONOnitrate (24 HR) 30 MG TAB.ER.24H PO SCH (09:59)
[2022-02-04] MEDS: Insulin LISPRO 300 UNITS/3 ML VIAL SUBQ SCH ×3 (09:59→18:44)
[2022-02-04] MEDS: SODIUM ZIRCONIUM CYCLOSILICATE 5 GM POWD.PACK PO SCH (10:00)
[2022-02-04] MEDS ORDERED: Ipratropium/Albuterol Neb 3 ML IH PRN (10:28)
[2022-02-04] MEDS ORDERED: Lidocaine -MPF 2% 5 ML VIAL ONE ×3 (11:59→13:42)
[2022-02-04] MEDS ORDERED: *HR* Propofol 200 MG/20 ML VIAL IVP ONE (11:59)
[2022-02-04] MEDS ORDERED: Ondansetron 4 MG/2 ML VIAL ONE ×2 (11:59→17:32)
[2022-02-04] MEDS ORDERED: *HR* Rocuronium Bromide 50 MG/5 ML VIAL ONE ×2 (11:59→12:37)
[2022-02-04] MEDS ORDERED: *HR* Etomidate 40 MG/20 ML VIAL IVP ONE (12:37)
[2022-02-04] MEDS ORDERED: CeFAZolin Syr 2,000MG/20 ML 2,000 MG/20 ML SYRINGE IVPB ONE (12:44)
[2022-02-04] MEDS ORDERED: 0.9 % Sodium Chloride 1,000 ML IVC SCH (12:45)
[2022-02-04] MEDS ORDERED: Ipratropium/Albuterol Neb 3 ML IH ONE (13:00)
[2022-02-04] MEDS ORDERED: Povidone-Iodine 45 ML, Sodium Chloride IRRigation 1,000 ML IR ONE (13:20)
[2022-02-04] MEDS ORDERED: TOTAL JOINT MIXTURE (100ML) INTRAART ONE (13:20)
[2022-02-04] MEDS ORDERED: *HR* FentaNYL (PF) 100 MCG/2 ML VIAL ONE ×2 (13:41→15:44)
[2022-02-04] MEDS ORDERED: Saliva Stimulant 44.3ml BOTTLE PO PRN (14:39)
[2022-02-04] MEDS ORDERED: Saline Nasal Spray 44 ML BOTTLE NS PRN (14:59)
[2022-02-04] MEDS ORDERED: Tranexamic Acid 1,000 MG/10 ML VIAL ONE (15:48)
[2022-02-04] MEDS: Acetylcysteine 10% 2 ML INHSOL IH SCH ×2 (15:51→21:53)
[2022-02-04] MEDS: Ipratropium/Albuterol Neb 3 ML IH SCH ×2 (15:51→21:54)
[2022-02-04] MEDS ORDERED: Acetaminophen IV 1,000 MG/100 ML BAG IVPB ONE (16:56)
[2022-02-04] MEDS ORDERED: Ketamine HCL *QUVA* 50mg (1mL) SYRINGE ONE (16:56)
[2022-02-04] MEDS ORDERED: *HR* Midazolam HCl 5 MG/5 ML VIAL IVP ONE (17:56)
[2022-02-04] MEDS ORDERED: Artificial Tears SOLN 15 ML BOTTLE BOTH EYES PRN (18:34)
[2022-02-04] MEDS ORDERED: Dexmedetomidine HCl 400 MCG/100 ML MLS IVC SCH (18:45)
[2022-02-04] MEDS: FentaNYL (PF) 1,000 MCG/100 ML IV.SOLN IVC SCH (18:46)
[2022-02-04] MEDS: Artificial Tears SOLN 15 ML BOTTLE BOTH EYES SCH (20:38)
[2022-02-04] MEDS: CeFAZolin 2 GM/100 ML BAG IVPB SCH (20:39)
[2022-02-04] MEDS: Chlorhexidine Rinse 15 ML MOUTHWASH MM SCH (20:39)
[2022-02-04] MEDS: Mirtazapine 15 MG TABLET PO SCH (20:40)
[2022-02-04 20:51] LABS: ABG Base Excess 0 mEq/L (-2 to 3); ABG HCO3 27 mEq/L (21-27); ABG Oxygen Saturation 100 % (95-98); ABG PCO2 55 mmHg (35-45); ABG PH 7.29 pH Units (7.32-7.45); ABG PO2 186 mmHg (85-104); ABG TCO2 28 mEq/L (20-26); Blood Gas Modality AF; Blood Gas VT 380 cc
[2022-02-04] MEDS ORDERED: Artificial Tears SOLN 15 ML BOTTLE BOTH EYES SCH (21:00)
[2022-02-04] MEDS ORDERED: Chlorhexidine Rinse 15 ML MOUTHWASH MM SCH (21:00)
[2022-02-04 21:16] LABS: Hematocrit 23.2 % (35.3-44.9); Hemoglobin 7.2 g/dL (11.5-15.4)
[2022-02-05] MEDS: *HR* Metoprolol 5 MG/5 ML VIAL IVP SCH ×4 (00:28→17:49)
[2022-02-05] MEDS: Insulin LISPRO 300 UNITS/3 ML VIAL SUBQ SCH ×5 (00:31→23:41)
[2022-02-05] MEDS: Artificial Tears SOLN 15 ML BOTTLE BOTH EYES SCH ×4 (00:31→12:30)
[2022-02-05] MEDS ORDERED: Albumin 25% 25gram/100mL 25 GM/100 ML IV.SOLN IVPB ONE (01:31)
[2022-02-05] MEDS: Ipratropium/Albuterol Neb 3 ML IH SCH ×4 (03:32→20:10)
[2022-02-05] MEDS: Acetylcysteine 10% 2 ML INHSOL IH SCH (03:33)
[2022-02-05 04:03] LABS: VBG Ionized Calcium 1.05 mmol/L (1.15-1.35)
[2022-02-05 04:05] LABS: Monocytes % 7.1 %
[2022-02-05 04:07] LABS: Hematocrit 19.3 % (35.3-44.9); Immature Platelets 3.9 % (1.1-6.1); Lymphocytes # 0.2 K/mcL (0.6-4.6); Lymphocytes % 6.8 %; Mean Corpuscular HGB Conc 30.1 g/dL (31.6-35.5); Mean Corpuscular Hemoglobin 30.1 pg (28.0-33.3); Mean Platelet Volume 11.3 fL (9.4-12.4); Monocytes # 0.3 K/mcL (0.0-1.3); Red Blood Count 1.93 M/mcL (3.82-4.97); Red Cell Distribution Width 14.4 % (11.5-14.5); Segmented Neutrophils % 86.1 %; White Blood Count 3.5 K/mcL (4.3-11.1)
[2022-02-05 04:14] LABS: Hemoglobin 5.8 g/dL (11.5-15.4); Platelet Count 81 K/mcL (140-400)
[2022-02-05] MEDS ORDERED: Calcium Gluconate 1gm/50mL 1 GM/50 ML BAG IVPB PRN (04:24)
[2022-02-05 04:27] LABS: Albumin 3.1 g/dL (3.5-5.7); Albumin/Globulin Ratio 1.6 (1.1-2.2); Bilirubin,Total 0.3 mg/dL (0.3-1.0); Magnesium 2.2 mg/dL (1.6-2.6); Phosphorous 5.4 mg/dL (2.7-4.5); Potassium 4.9 mEq/L (3.5-5.1); Total Protein 5.1 g/dL (6.4-8.9)
[2022-02-05 04:29] LABS: Albumin 3.1 g/dL (3.5-5.7); Albumin/Globulin Ratio 1.6 (1.1-2.2); Bilirubin,Indirect 0.3 mg/dL (0.0-1.0); Bilirubin,Total 0.3 mg/dL (0.3-1.0); Total Protein 5.1 g/dL (6.4-8.9)
[2022-02-05] MEDS ORDERED: 0.9 % Sodium Chloride 250 ML IVC SCH (04:30)
[2022-02-05 04:48] LABS: Folate 22.2 ng/mL (3.0-16.0)
[2022-02-05 04:51] LABS: Vitamin B12 > 1500 pg/mL (250-1100)
[2022-02-05 04:53] LABS: ABG Base Excess 0 mEq/L (-2 to 3); ABG HCO3 25 mEq/L (21-27); ABG Oxygen Saturation 99 % (95-98); ABG PCO2 42 mmHg (35-45); ABG PH 7.38 pH Units (7.32-7.45); ABG PO2 152 mmHg (85-104); ABG TCO2 26 mEq/L (20-26); Blood Gas Modality ASSIST CONTROL; Blood Gas VT 380 cc
[2022-02-05 05:49] LABS: Thyroid Stimulating Hormone 1.54 mcIU/mL (0.340-5.600)
[2022-02-05] MEDS: CeFAZolin 2 GM/100 ML BAG IVPB SCH ×2 (06:03→14:14)
[2022-02-05] MEDS ORDERED: Furosemide 20 MG/2 ML VIAL IVP ONE (08:08)
[2022-02-05] MEDS ORDERED: Cholecalciferol (D-3) 1,000 UNIT (25MCG) TABLET PO SCH (09:00)
[2022-02-05] MEDS ORDERED: Pantoprazole 40 MG VIAL IVP SCH (09:00)
[2022-02-05] MEDS: Chlorhexidine Rinse 15 ML MOUTHWASH MM SCH (09:19)
[2022-02-05] MEDS: *HR* HYDROmorphone (PF) 1 MG/ML SYRINGE IVP PRN ×3 (11:07→20:49)
[2022-02-05] MEDS: Acetaminophen IV 1,000 MG/100 ML BAG IVPB PRN (11:30)
[2022-02-05] MEDS ORDERED: 0.9 % Sodium Chloride 250 ML ONE (11:55)
[2022-02-05] MEDS: Isosorbide MONOnitrate (24 HR) 30 MG TAB.ER.24H PO SCH (14:15)
[2022-02-05] MEDS ORDERED: Insulin LISPRO 300 UNITS/3 ML VIAL SUBQ SCH (16:00)
[2022-02-05 16:25] LABS: Hematocrit 29.5 % (35.3-44.9)
[2022-02-05 16:26] LABS: Hemoglobin 9.7 g/dL (11.5-15.4)
[2022-02-05] MEDS ORDERED: D5% in Water 1,000 ML IVC PRN (18:11)
[2022-02-05] MEDS ORDERED: Saline Nasal Spray 44 ML BOTTLE NS PRN (18:11)
[2022-02-05] MEDS ORDERED: Naloxone 0.4 MG/ML INJ IVP PRN (18:11)
[2022-02-05] MEDS ORDERED: Saliva Stimulant 44.3ml BOTTLE PO PRN (18:11)
[2022-02-05] MEDS ORDERED: Dextrose 4 GM Chewable Tablets PO PRN ×2 (18:11)
[2022-02-05] MEDS ORDERED: Nitroglycerin 0.4 MG TAB.SUBL SL PRN (18:11)
[2022-02-05] MEDS ORDERED: Ipratropium/Albuterol Neb 3 ML ONE (19:38)
[2022-02-05] MEDS: Mirtazapine 15 MG TABLET PO SCH (20:45)
[2022-02-05] MEDS ORDERED: CeFAZolin 2 GM/100 ML BAG IVPB SCH (21:00)
[2022-02-06] MEDS: *HR* Metoprolol 5 MG/5 ML VIAL IVP SCH ×4 (02:29→17:17)
[2022-02-06] MEDS: Ipratropium/Albuterol Neb 3 ML IH SCH ×4 (03:30→20:12)
[2022-02-06] MEDS: Insulin LISPRO 300 UNITS/3 ML VIAL SUBQ SCH ×5 (04:35→21:25)
[2022-02-06 04:45] LABS: Eosinophils # 0.1 K/mcL (0.0-0.6); Eosinophils % 1.3 %; Hematocrit 29.6 % (35.3-44.9); Hemoglobin 9.7 g/dL (11.5-15.4); Immature Granulocytes % 0.2 % (0-4); Lymphocytes # 0.3 K/mcL (0.6-4.6); Mean Corpuscular HGB Conc 32.8 g/dL (31.6-35.5); Mean Corpuscular Volume 94.6 fL (83.0-100.0); Mean Platelet Volume 11.3 fL (9.4-12.4); Monocytes # 0.7 K/mcL (0.0-1.3); Monocytes % 8.6 %; Neutrophils # 7.4 K/mcL (1.6-8.9); Nucleated Red Blood Cells 0.2 /100 WBC (0); Platelet Count 120 K/mcL (140-400); Red Blood Count 3.13 M/mcL (3.82-4.97); Red Cell Distribution Width 16.9 % (11.5-14.5); Segmented Neutrophils % 85.9 %
[2022-02-06 04:49] LABS: Albumin/Globulin Ratio 1.2 (1.1-2.2); Bilirubin,Total 0.4 mg/dL (0.3-1.0); Calcium 8.6 mg/dL (8.6-10.3); Globulin 2.5 g/dL (2.4-3.5); Magnesium 2.3 mg/dL (1.6-2.6); Potassium 5.5 mEq/L (3.5-5.1); Total Protein 5.5 g/dL (6.4-8.9)
[2022-02-06 04:50] LABS: White Blood Count 8.6 K/mcL (4.3-11.1)
[2022-02-06 04:51] LABS: INR 2.1; Prothrombin Time 23.5 Seconds (9.4-12.1)
[2022-02-06] MEDS ORDERED: *HR* Dextrose 50 % in Water (Syg) 50 ML SYRINGE IVP ONE (09:09)
[2022-02-06] MEDS ORDERED: Insulin Human Regular 10 UNIT in 0.9 % Sodium Chloride 10 ML IV ONE (09:10)
[2022-02-06] MEDS: Calcium Gluconate 1gm/50mL 1 GM/50 ML BAG IVPB SCH ×2 (09:34→12:16)
[2022-02-06] MEDS: Isosorbide MONOnitrate (24 HR) 30 MG TAB.ER.24H PO SCH (12:05)
[2022-02-06] MEDS: Cholecalciferol (D-3) 1,000 UNIT (25MCG) TABLET PO SCH (12:05)
[2022-02-06] MEDS: Pantoprazole 40 MG VIAL IVP SCH (12:16)
[2022-02-06] MEDS: FentaNYL (PF) 1,000 MCG/100 ML IV.SOLN IVC SCH (12:24)
[2022-02-06] MEDS ORDERED: D5% in Water 1,000 ML IVC SCH (14:15)
[2022-02-06 14:42] LABS: Calcium 9.4 mg/dL (8.6-10.3); Potassium 4.9 mEq/L (3.5-5.1)
[2022-02-06] MEDS: Mirtazapine 15 MG TABLET PO SCH (21:26)
[2022-02-07] MEDS: *HR* Metoprolol 5 MG/5 ML VIAL IVP SCH ×5 (00:48→18:36)
[2022-02-07] MEDS: Insulin LISPRO 300 UNITS/3 ML VIAL SUBQ SCH ×6 (00:50→20:27)
[2022-02-07 00:57] LABS: ABG Base Excess -2 mEq/L (-2 to 3); ABG HCO3 22 mEq/L (21-27); ABG Oxygen Saturation 98 % (95-98); ABG PCO2 34 mmHg (35-45); ABG PH 7.42 pH Units (7.32-7.45); ABG PO2 109 mmHg (85-104); ABG TCO2 23 mEq/L (20-26)
[2022-02-07] MEDS: D5% in Water 1,000 ML IVC SCH ×2 (01:14→05:35)
[2022-02-07 01:41] LABS: Hematocrit 28.6 % (35.3-44.9); Hemoglobin 9.1 g/dL (11.5-15.4); Mean Corpuscular HGB Conc 31.8 g/dL (31.6-35.5); Mean Corpuscular Volume 94.4 fL (83.0-100.0); Mean Platelet Volume 11.2 fL (9.4-12.4); Platelet Count 137 K/mcL (140-400); Red Blood Count 3.03 M/mcL (3.82-4.97); Red Cell Distribution Width 16.1 % (11.5-14.5); White Blood Count 10.4 K/mcL (4.3-11.1)
[2022-02-07 01:59] LABS: Calcium 8.7 mg/dL (8.6-10.3); Magnesium 2.4 mg/dL (1.6-2.6); Phosphorous 2.8 mg/dL (2.7-4.5); Potassium 4.5 mEq/L (3.5-5.1)
[2022-02-07] MEDS: *HR* HYDROmorphone (PF) 1 MG/ML SYRINGE IVP PRN ×3 (02:22→22:39)
[2022-02-07] MEDS: Ipratropium/Albuterol Neb 3 ML IH SCH ×4 (03:50→20:54)
[2022-02-07 05:03] LABS: Bilirubin,Urine Negative (Negative); Blood,Urine Large (Negative); Clarity,Urine Turbid (Clear); Color,Urine Light-Yellow (Yellow); Glucose,Urine (UA) Normal (Normal); Ketones,Urine 10 mg/dL (Negative); Leukocyte Esterase,Urine Trace (Negative); Nitrite,Urine Negative (Negative); PH,Urine 5.5 pH Units (5.0-8.0); Protein,Urine 70 mg/dL (Neg-Trace); Specific Gravity,Urine 1.021 (1.010-1.025); Urobilinogen,Urine Normal (Normal)
[2022-02-07 05:12] LABS: Amorphous Sediment,Urine Few per hpf (None-Few); Bacteria,Urine Few per hpf (None-Few); RBC,Urine TNTC per hpf (0-3); Squamous Epithelial Cell,Urine Few per hpf (None-Few)
[2022-02-07 05:14] LABS: Granular Casts,Urine Few per lpf (None Seen); Hyaline Casts,Urine Few per lpf (None Seen); Transitional Epi Cells,Urine Few per hpf (None-Few)
[2022-02-07] MEDS ORDERED: D5% in Water 1,000 ML IVC SCH (06:15)
[2022-02-07] MEDS: Isosorbide MONOnitrate (24 HR) 30 MG TAB.ER.24H PO SCH (09:46)
[2022-02-07] MEDS: Cholecalciferol (D-3) 1,000 UNIT (25MCG) TABLET PO SCH (09:47)
[2022-02-07] MEDS: Pantoprazole 40 MG VIAL IVP SCH (09:48)
[2022-02-07] MEDS: Metoclopramide 10 MG/10 ML UD.LIQ GTUBE SCH ×2 (11:29→16:56)
[2022-02-07] MEDS: Piperacillin/Tazobactam 3.375 GM in 0.9 % Sodium Chloride Mini Bag 100 ML IVPB SCH (17:35)
[2022-02-07] MEDS ORDERED: Albumin 25% 25gram/100mL 25 GM/100 ML IV.SOLN IVPB SCH (19:00)
[2022-02-07] MEDS: Chlorhexidine Rinse 15 ML MOUTHWASH MM SCH (20:30)
[2022-02-07] MEDS: Mirtazapine 15 MG TABLET PO SCH (20:38)
[2022-02-08] MEDS: *HR* Metoprolol 5 MG/5 ML VIAL IVP SCH ×5 (00:31→21:14)
[2022-02-08] MEDS: Insulin LISPRO 300 UNITS/3 ML VIAL SUBQ SCH ×4 (00:33→21:17)
[2022-02-08] MEDS: Metoclopramide 10 MG/10 ML UD.LIQ GTUBE SCH ×4 (00:44→17:34)
[2022-02-08] MEDS ORDERED: Albumin 25% 25gram/100mL 25 GM/100 ML IV.SOLN IVPB SCH (02:00)
[2022-02-08 03:06] LABS: Basophils % 0.1 %; Eosinophils % 0.4 %; Hematocrit 29.4 % (35.3-44.9); Hemoglobin 9.2 g/dL (11.5-15.4); Immature Granulocytes % 0.5 % (0-4); Lymphocytes # 0.4 K/mcL (0.6-4.6); Lymphocytes % 4.6 %; Mean Corpuscular HGB Conc 31.3 g/dL (31.6-35.5); Mean Corpuscular Hemoglobin 29.8 pg (28.0-33.3); Mean Corpuscular Volume 95.1 fL (83.0-100.0); Mean Platelet Volume 11.2 fL (9.4-12.4); Monocytes # 0.9 K/mcL (0.0-1.3); Monocytes % 9.2 %; Neutrophils # 7.9 K/mcL (1.6-8.9); Platelet Count 143 K/mcL (140-400); Red Blood Count 3.09 M/mcL (3.82-4.97); Red Cell Distribution Width 15.4 % (11.5-14.5); Segmented Neutrophils % 85.2 %; White Blood Count 9.3 K/mcL (4.3-11.1)
[2022-02-08] MEDS: *HR* HYDROmorphone (PF) 1 MG/ML SYRINGE IVP PRN (03:19)
[2022-02-08 03:30] LABS: Calcium 8.9 mg/dL (8.6-10.3); Magnesium 2.6 mg/dL (1.6-2.6); Potassium 4.2 mEq/L (3.5-5.1)
[2022-02-08] MEDS: Ipratropium/Albuterol Neb 3 ML IH SCH ×2 (04:08→09:12)
[2022-02-08] MEDS: Piperacillin/Tazobactam 3.375 GM in 0.9 % Sodium Chloride Mini Bag 100 ML IVPB SCH ×2 (05:58→17:33)
[2022-02-08] MEDS: Cholecalciferol (D-3) 1,000 UNIT (25MCG) TABLET PO SCH (07:40)
[2022-02-08] MEDS: Chlorhexidine Rinse 15 ML MOUTHWASH MM SCH ×2 (07:40→21:14)
[2022-02-08] MEDS: Pantoprazole 40 MG VIAL IVP SCH (07:41)
[2022-02-08] MEDS: Insulin DETEMIR 100 UNIT/ML X5UNITS SUBQ SCH (07:56)
[2022-02-08] MEDS ORDERED: Ipratropium/Albuterol Neb 3 ML IH PRN (14:36)
[2022-02-08] MEDS ORDERED: Ringers Solution, Lactated 1,000 ML IVC SCH (15:45)
[2022-02-08] MEDS ORDERED: *HR* Metoprolol 5 MG/5 ML VIAL IVP ONE (20:58)
[2022-02-08] MEDS ORDERED: *HR* Labetalol 20 MG/4 ML SYRINGE IVP ONE (22:08)
[2022-02-09] MEDS: Metoclopramide 10 MG/10 ML UD.LIQ GTUBE SCH ×5 (00:16→23:14)
[2022-02-09] MEDS: *HR* Metoprolol 5 MG/5 ML VIAL IVP SCH ×5 (00:16→21:51)
[2022-02-09] MEDS: Insulin LISPRO 300 UNITS/3 ML VIAL SUBQ SCH ×6 (00:24→21:12)
[2022-02-09 05:46] LABS: Basophils % 0.1 %; Eosinophils # 0.1 K/mcL (0.0-0.6); Eosinophils % 0.5 %; Hematocrit 31.3 % (35.3-44.9); Immature Granulocytes % 1.1 % (0-4); Lymphocytes # 0.4 K/mcL (0.6-4.6); Lymphocytes % 3.1 %; Mean Corpuscular HGB Conc 31.9 g/dL (31.6-35.5); Mean Corpuscular Hemoglobin 30.8 pg (28.0-33.3); Mean Corpuscular Volume 96.3 fL (83.0-100.0); Mean Platelet Volume 11.5 fL (9.4-12.4); Monocytes # 0.6 K/mcL (0.0-1.3); Monocytes % 5.2 %; Platelet Count 163 K/mcL (140-400); Red Blood Count 3.25 M/mcL (3.82-4.97); White Blood Count 12.2 K/mcL (4.3-11.1)
[2022-02-09] MEDS: Piperacillin/Tazobactam 3.375 GM in 0.9 % Sodium Chloride Mini Bag 100 ML IVPB SCH ×2 (06:00→17:06)
[2022-02-09 06:10] LABS: Calcium 8.7 mg/dL (8.6-10.3); Magnesium 2.4 mg/dL (1.6-2.6); Potassium 4.3 mEq/L (3.5-5.1)
[2022-02-09] MEDS ORDERED: Levalbuterol Neb 0.63 MG/3 ML IH PRN (07:20)
[2022-02-09] MEDS ORDERED: Ipratropium Neb 0.5 MG NEBULIZER IH PRN (07:21)
[2022-02-09] MEDS: Cholecalciferol (D-3) 1,000 UNIT (25MCG) TABLET PO SCH (08:06)
[2022-02-09] MEDS: Pantoprazole 40 MG VIAL IVP SCH (08:06)
[2022-02-09] MEDS: Chlorhexidine Rinse 15 ML MOUTHWASH MM SCH ×2 (08:06→21:15)
[2022-02-09] MEDS: Insulin DETEMIR 100 UNIT/ML X5UNITS SUBQ SCH ×2 (08:07→21:12)
[2022-02-09] MEDS: Doxycycline 100 MG in 0.9 % Sodium Chloride Mini Bag 100 ML IVPB SCH ×2 (10:15→21:14)
[2022-02-09] MEDS: Acetaminophen IV 1,000 MG/100 ML BAG IVPB SCH ×3 (13:01→23:33)
[2022-02-09] MEDS ORDERED: *HR* LORazepam 2 MG/ML VIAL IVP PRN (15:25)
[2022-02-09] MEDS: *HR* HYDROmorphone (PF) 1 MG/ML SYRINGE IVP PRN (15:42)
[2022-02-09 15:44] LABS: Adenovirus Not Detected (Not Detect); Bordetella Pertussis Not Detected (Not Detect); Chlamydophila pneumoniae Not Detected (Not Detect); Coronavirus 229E Not Detected (Not Detect); Coronavirus HKU1 Not Detected (Not Detect); Coronavirus NL63 Not Detected (Not Detect); Coronavirus OC43 Not Detected (Not Detect); Human Metapneumovirus Not Detected (Not Detect); Human Rhinovirus/Enterovirus Not Detected (Not Detect); Influenza A Subtype 2009 H1 Not Detected (Not Detect); Influenza B Not Detected (Not Detect); Mycoplasma pneumoniae Not Detected (Not Detect); Parainfluenza Virus 1 Not Detected (Not Detect); Parainfluenza Virus 2 Not Detected (Not Detect); Parainfluenza Virus 3 Not Detected (Not Detect); Parainfluenza Virus 4 Not Detected (Not Detect); Respiratory Syncytial Virus Not Detected (Not Detect); SARS-CoV-2 Not Detected (Not Detect)
[2022-02-10] MEDS: Insulin LISPRO 300 UNITS/3 ML VIAL SUBQ SCH ×6 (00:16→20:02)
[2022-02-10] MEDS: *HR* Metoprolol 5 MG/5 ML VIAL IVP SCH ×3 (03:41→16:10)
[2022-02-10 04:04] LABS: Basophils % 0.1 %; Eosinophils # 0.3 K/mcL (0.0-0.6); Eosinophils % 2.1 %; Hematocrit 31.4 % (35.3-44.9); Hemoglobin 9.7 g/dL (11.5-15.4); Immature Granulocytes % 0.3 % (0-4); Lymphocytes # 0.4 K/mcL (0.6-4.6); Lymphocytes % 3.2 %; Mean Corpuscular HGB Conc 30.9 g/dL (31.6-35.5); Mean Corpuscular Hemoglobin 30.2 pg (28.0-33.3); Mean Corpuscular Volume 97.8 fL (83.0-100.0); Mean Platelet Volume 11.5 fL (9.4-12.4); Monocytes # 0.5 K/mcL (0.0-1.3); Monocytes % 4.1 %; Neutrophils # 10.9 K/mcL (1.6-8.9); Platelet Count 168 K/mcL (140-400); Red Blood Count 3.21 M/mcL (3.82-4.97); Segmented Neutrophils % 90.2 %; White Blood Count 12.1 K/mcL (4.3-11.1)
[2022-02-10 04:21] LABS: Calcium 8.3 mg/dL (8.6-10.3); Magnesium 2.3 mg/dL (1.6-2.6); Phosphorous 1.8 mg/dL (2.7-4.5); Potassium 4.1 mEq/L (3.5-5.1)
[2022-02-10 04:50] LABS: Hypochromasia Present (Not Present); Platelet Estimate Normal (Normal)
[2022-02-10 04:51] LABS: Toxic Granulation Present (Not Present)
[2022-02-10] MEDS: Piperacillin/Tazobactam 3.375 GM in 0.9 % Sodium Chloride Mini Bag 100 ML IVPB SCH ×2 (06:05→16:12)
[2022-02-10] MEDS: Metoclopramide 10 MG/10 ML UD.LIQ GTUBE SCH ×3 (06:10→16:09)
[2022-02-10] MEDS: Pantoprazole 40 MG VIAL IVP SCH (09:24)
[2022-02-10] MEDS: Doxycycline 100 MG in 0.9 % Sodium Chloride Mini Bag 100 ML IVPB SCH ×2 (09:25→20:03)
[2022-02-10] MEDS: Chlorhexidine Rinse 15 ML MOUTHWASH MM SCH ×2 (09:25→20:02)
[2022-02-10] MEDS: Cholecalciferol (D-3) 1,000 UNIT (25MCG) TABLET PO SCH (09:26)
[2022-02-10] MEDS: Insulin DETEMIR 100 UNIT/ML X5UNITS SUBQ SCH ×2 (11:53→20:03)
[2022-02-10] MEDS: Aspirin 81 MG TAB.CHEW GTUBE SCH (16:11)
[2022-02-10] MEDS: Mirtazapine 15 MG TABLET GTUBE SCH (20:03)
[2022-02-11] MEDS: Insulin LISPRO 300 UNITS/3 ML VIAL SUBQ SCH ×6 (00:21→20:53)
[2022-02-11] MEDS: Metoclopramide 10 MG/10 ML UD.LIQ GTUBE SCH ×4 (00:24→19:11)
[2022-02-11] MEDS: Piperacillin/Tazobactam 3.375 GM in 0.9 % Sodium Chloride Mini Bag 100 ML IVPB SCH ×2 (05:26→19:11)
[2022-02-11 05:29] LABS: Basophils % 0.1 %; Eosinophils # 0.3 K/mcL (0.0-0.6); Eosinophils % 2.6 %; Hematocrit 28.8 % (35.3-44.9); Hemoglobin 9.2 g/dL (11.5-15.4); Immature Granulocytes % 0.5 % (0-4); Lymphocytes # 0.5 K/mcL (0.6-4.6); Lymphocytes % 3.9 %; Mean Corpuscular HGB Conc 31.9 g/dL (31.6-35.5); Mean Platelet Volume 10.9 fL (9.4-12.4); Monocytes # 0.6 K/mcL (0.0-1.3); Monocytes % 4.7 %; Neutrophils # 10.6 K/mcL (1.6-8.9); Platelet Count 178 K/mcL (140-400); Red Blood Count 2.97 M/mcL (3.82-4.97); Segmented Neutrophils % 88.2 %
[2022-02-11 05:48] LABS: Calcium 8.4 mg/dL (8.6-10.3); Magnesium 2.4 mg/dL (1.6-2.6); Potassium 3.4 mEq/L (3.5-5.1)
[2022-02-11] MEDS: *HR* Dextrose 50 % in Water (Syg) 50 ML SYRINGE IVP PRN (08:15)
[2022-02-11] MEDS: Cholecalciferol (D-3) 1,000 UNIT (25MCG) TABLET GTUBE SCH (08:23)
[2022-02-11] MEDS: Doxycycline 100 MG in 0.9 % Sodium Chloride Mini Bag 100 ML IVPB SCH ×2 (08:24→21:25)
[2022-02-11] MEDS: Chlorhexidine Rinse 15 ML MOUTHWASH MM SCH ×2 (08:24→21:17)
[2022-02-11] MEDS: Aspirin 81 MG TAB.CHEW GTUBE SCH (08:28)
[2022-02-11] MEDS: Insulin DETEMIR 100 UNIT/ML X5UNITS SUBQ SCH ×2 (09:39→21:32)
[2022-02-11] MEDS ORDERED: Potassium Effervescent 25 MEQ TABLET.EFF GTUBE ONE (10:22)
[2022-02-11] MEDS: Pantoprazole 40 MG VIAL IVP SCH (11:40)
[2022-02-11] MEDS: Saliva Stimulant 44.3ml BOTTLE PO PRN (18:01)
[2022-02-11] MEDS: *HR* HYDROmorphone (PF) 1 MG/ML SYRINGE IVP PRN (21:13)
[2022-02-11] MEDS: Mirtazapine 15 MG TABLET GTUBE SCH (21:17)
[2022-02-12] MEDS: Metoclopramide 10 MG/10 ML UD.LIQ GTUBE SCH ×4 (00:54→17:28)
[2022-02-12] MEDS: Insulin LISPRO 300 UNITS/3 ML VIAL SUBQ SCH ×6 (01:02→21:08)
[2022-02-12] MEDS: *HR* HYDROmorphone (PF) 1 MG/ML SYRINGE IVP PRN ×3 (02:34→22:15)
[2022-02-12] MEDS: Piperacillin/Tazobactam 3.375 GM in 0.9 % Sodium Chloride Mini Bag 100 ML IVPB SCH ×2 (05:13→17:27)
[2022-02-12 09:37] LABS: Basophils % 0.2 %; Eosinophils # 0.4 K/mcL (0.0-0.6); Eosinophils % 3.1 %; Hematocrit 31.6 % (35.3-44.9); Hemoglobin 9.6 g/dL (11.5-15.4); Immature Granulocytes % 0.8 % (0-4); Lymphocytes # 0.5 K/mcL (0.6-4.6); Lymphocytes % 4.5 %; Mean Corpuscular HGB Conc 30.4 g/dL (31.6-35.5); Mean Corpuscular Hemoglobin 29.9 pg (28.0-33.3); Mean Corpuscular Volume 98.4 fL (83.0-100.0); Mean Platelet Volume 11.2 fL (9.4-12.4); Monocytes # 0.7 K/mcL (0.0-1.3); Monocytes % 5.5 %; Neutrophils # 10.1 K/mcL (1.6-8.9); Platelet Count 219 K/mcL (140-400); Red Blood Count 3.21 M/mcL (3.82-4.97); Red Cell Distribution Width 15.3 % (11.5-14.5); Segmented Neutrophils % 85.9 %; White Blood Count 11.8 K/mcL (4.3-11.1)
[2022-02-12 09:57] LABS: Albumin 2.7 g/dL (3.5-5.7); Albumin/Globulin Ratio 1.1 (1.1-2.2); Bilirubin,Total 0.5 mg/dL (0.3-1.0); Calcium 8.6 mg/dL (8.6-10.3); Globulin 2.4 g/dL (2.4-3.5); Potassium 3.7 mEq/L (3.5-5.1); Total Protein 5.1 g/dL (6.4-8.9)
[2022-02-12] MEDS: Pantoprazole 40 MG VIAL IVP SCH (11:01)
[2022-02-12] MEDS: Chlorhexidine Rinse 15 ML MOUTHWASH MM SCH ×2 (11:01→21:10)
[2022-02-12] MEDS: Aspirin 81 MG TAB.CHEW GTUBE SCH (11:01)
[2022-02-12] MEDS: Cholecalciferol (D-3) 1,000 UNIT (25MCG) TABLET GTUBE SCH (11:02)
[2022-02-12] MEDS: D5% in Water 1,000 ML IVC SCH (11:16)
[2022-02-12] MEDS: Doxycycline 100 MG in 0.9 % Sodium Chloride Mini Bag 100 ML IVPB SCH ×2 (11:16→21:11)
[2022-02-12] MEDS: Insulin DETEMIR 100 UNIT/ML X5UNITS SUBQ SCH ×2 (11:16→21:15)
[2022-02-12] MEDS: Mirtazapine 15 MG TABLET GTUBE SCH (21:12)
[2022-02-12] MEDS ORDERED: Ondansetron ODT 4 MG TAB.RAPDIS SL PRN (22:23)
[2022-02-13] MEDS: Insulin LISPRO 300 UNITS/3 ML VIAL SUBQ SCH ×6 (00:32→21:38)
[2022-02-13] MEDS: Metoclopramide 10 MG/10 ML UD.LIQ GTUBE SCH ×4 (00:32→16:18)
[2022-02-13] MEDS: D5% in Water 1,000 ML IVC SCH ×2 (00:32→11:42)
[2022-02-13 05:20] LABS: Basophils % 0.2 %; Eosinophils # 0.3 K/mcL (0.0-0.6); Eosinophils % 3.1 %; Hematocrit 29.8 % (35.3-44.9); Hemoglobin 9.1 g/dL (11.5-15.4); Immature Granulocytes % 0.5 % (0-4); Lymphocytes # 0.5 K/mcL (0.6-4.6); Lymphocytes % 4.5 %; Mean Corpuscular HGB Conc 30.5 g/dL (31.6-35.5); Mean Corpuscular Hemoglobin 30.2 pg (28.0-33.3); Mean Platelet Volume 11.1 fL (9.4-12.4); Monocytes # 0.8 K/mcL (0.0-1.3); Monocytes % 6.7 %; Neutrophils # 9.5 K/mcL (1.6-8.9); Platelet Count 228 K/mcL (140-400); Red Blood Count 3.01 M/mcL (3.82-4.97); Red Cell Distribution Width 15.2 % (11.5-14.5); White Blood Count 11.1 K/mcL (4.3-11.1)
[2022-02-13 05:44] LABS: Calcium 8.2 mg/dL (8.6-10.3); Magnesium 2.2 mg/dL (1.6-2.6); Potassium 3.5 mEq/L (3.5-5.1)
[2022-02-13] MEDS: Piperacillin/Tazobactam 3.375 GM in 0.9 % Sodium Chloride Mini Bag 100 ML IVPB SCH ×2 (06:43→16:18)
[2022-02-13] MEDS: Aspirin 81 MG TAB.CHEW GTUBE SCH (07:39)
[2022-02-13] MEDS: Doxycycline 100 MG in 0.9 % Sodium Chloride Mini Bag 100 ML IVPB SCH ×2 (07:40→21:36)
[2022-02-13] MEDS: Pantoprazole 40 MG VIAL IVP SCH (07:40)
[2022-02-13] MEDS: Cholecalciferol (D-3) 1,000 UNIT (25MCG) TABLET GTUBE SCH (07:40)
[2022-02-13] MEDS: Chlorhexidine Rinse 15 ML MOUTHWASH MM SCH ×2 (07:40→21:37)
[2022-02-13] MEDS: Insulin DETEMIR 100 UNIT/ML X5UNITS SUBQ SCH ×2 (07:42→21:36)
[2022-02-13] MEDS ORDERED: *HR* Alteplase (Cathflo) 2 MG VIAL IVP ONE (11:56)
[2022-02-13] MEDS: *HR* HYDROmorphone (PF) 1 MG/ML SYRINGE IVP PRN (18:13)
[2022-02-13] MEDS: Mirtazapine 15 MG TABLET GTUBE SCH (21:37)
[2022-02-14] MEDS: Metoclopramide 10 MG/10 ML UD.LIQ GTUBE SCH ×4 (00:48→17:07)
[2022-02-14] MEDS: Insulin LISPRO 300 UNITS/3 ML VIAL SUBQ SCH ×6 (00:53→21:29)
[2022-02-14] MEDS: D5% in Water 1,000 ML IVC SCH ×2 (03:34→16:59)
[2022-02-14] MEDS: Piperacillin/Tazobactam 3.375 GM in 0.9 % Sodium Chloride Mini Bag 100 ML IVPB SCH ×2 (06:00→16:59)
[2022-02-14 06:25] LABS: Basophils % 0.2 %; Eosinophils # 0.4 K/mcL (0.0-0.6); Eosinophils % 4.5 %; Hematocrit 28.1 % (35.3-44.9); Hemoglobin 8.7 g/dL (11.5-15.4); Immature Granulocytes % 0.8 % (0-4); Lymphocytes # 0.5 K/mcL (0.6-4.6); Lymphocytes % 5.2 %; Mean Corpuscular Volume 96.9 fL (83.0-100.0); Mean Platelet Volume 11.2 fL (9.4-12.4); Monocytes # 0.6 K/mcL (0.0-1.3); Neutrophils # 7.8 K/mcL (1.6-8.9); Platelet Count 238 K/mcL (140-400); Red Cell Distribution Width 14.9 % (11.5-14.5); Segmented Neutrophils % 83.3 %; White Blood Count 9.3 K/mcL (4.3-11.1)
[2022-02-14 06:40] LABS: Calcium 7.9 mg/dL (8.6-10.3); Magnesium 2.1 mg/dL (1.6-2.6); Potassium 3.4 mEq/L (3.5-5.1)
[2022-02-14] MEDS ORDERED: Potassium Chloride Elixir 20 MEQ/15 ML UDC GTUBE ONE ×2 (07:55→15:29)
[2022-02-14] MEDS: Pantoprazole 40 MG VIAL IVP SCH (10:33)
[2022-02-14] MEDS: Doxycycline 100 MG in 0.9 % Sodium Chloride Mini Bag 100 ML IVPB SCH ×2 (10:40→21:24)
[2022-02-14] MEDS: Chlorhexidine Rinse 15 ML MOUTHWASH MM SCH ×2 (10:50→21:29)
[2022-02-14] MEDS: Insulin DETEMIR 100 UNIT/ML X5UNITS SUBQ SCH ×2 (10:53→21:28)
[2022-02-14] MEDS: *HR* HYDROmorphone (PF) 1 MG/ML SYRINGE IVP PRN (10:54)
[2022-02-14] MEDS: Aspirin 81 MG TAB.CHEW GTUBE SCH (11:01)
[2022-02-14] MEDS: Cholecalciferol (D-3) 1,000 UNIT (25MCG) TABLET GTUBE SCH (11:01)
[2022-02-14] MEDS: Mirtazapine 15 MG TABLET GTUBE SCH (21:28)
[2022-02-15] MEDS: Insulin LISPRO 300 UNITS/3 ML VIAL SUBQ SCH ×6 (00:43→21:31)
[2022-02-15] MEDS: Metoclopramide 10 MG/10 ML UD.LIQ GTUBE SCH ×4 (00:44→16:59)
[2022-02-15 01:24] LABS: Basophils % 0.1 %; Eosinophils # 0.3 K/mcL (0.0-0.6); Eosinophils % 2.7 %; Hematocrit 26.7 % (35.3-44.9); Hemoglobin 8.2 g/dL (11.5-15.4); Immature Granulocytes % 0.7 % (0-4); Lymphocytes # 0.5 K/mcL (0.6-4.6); Lymphocytes % 4.4 %; Mean Corpuscular HGB Conc 30.7 g/dL (31.6-35.5); Mean Corpuscular Hemoglobin 29.6 pg (28.0-33.3); Mean Corpuscular Volume 96.4 fL (83.0-100.0); Mean Platelet Volume 11.6 fL (9.4-12.4); Monocytes # 0.8 K/mcL (0.0-1.3); Monocytes % 6.8 %; Neutrophils # 9.5 K/mcL (1.6-8.9); Platelet Count 244 K/mcL (140-400); Red Blood Count 2.77 M/mcL (3.82-4.97); Red Cell Distribution Width 14.6 % (11.5-14.5); Segmented Neutrophils % 85.3 %; White Blood Count 11.1 K/mcL (4.3-11.1)
[2022-02-15 01:56] LABS: Calcium 7.7 mg/dL (8.6-10.3); Magnesium 1.8 mg/dL (1.6-2.6); Potassium 3.6 mEq/L (3.5-5.1)
[2022-02-15] MEDS: Piperacillin/Tazobactam 3.375 GM in 0.9 % Sodium Chloride Mini Bag 100 ML IVPB SCH (06:09)
[2022-02-15] MEDS: Pantoprazole 40 MG VIAL IVP SCH (14:27)
[2022-02-15] MEDS: Cholecalciferol (D-3) 1,000 UNIT (25MCG) TABLET GTUBE SCH (14:28)
[2022-02-15] MEDS: Insulin DETEMIR 100 UNIT/ML X5UNITS SUBQ SCH ×2 (14:29→21:32)
[2022-02-15] MEDS: Chlorhexidine Rinse 15 ML MOUTHWASH MM SCH ×2 (14:29→21:00)
[2022-02-15] MEDS: Aspirin 81 MG TAB.CHEW GTUBE SCH (14:31)
[2022-02-15] MEDS: D5% in Water 1,000 ML IVC SCH (20:30)
[2022-02-15] MEDS: Acetylcysteine 10% 2 ML INHSOL IH SCH (20:44)
[2022-02-15] MEDS: Mirtazapine 15 MG TABLET GTUBE SCH (20:47)
[2022-02-16] MEDS: Insulin LISPRO 300 UNITS/3 ML VIAL SUBQ SCH ×6 (00:30→19:52)
[2022-02-16] MEDS: Metoclopramide 10 MG/10 ML UD.LIQ GTUBE SCH ×4 (00:55→17:17)
[2022-02-16] MEDS ORDERED: *HR* Enoxaparin 40 MG/0.4 ML SYRINGE SQ SCH (06:00)
[2022-02-16] MEDS: Cholecalciferol (D-3) 1,000 UNIT (25MCG) TABLET GTUBE SCH (08:51)
[2022-02-16] MEDS: Aspirin 81 MG TAB.CHEW GTUBE SCH (08:52)
[2022-02-16] MEDS: Chlorhexidine Rinse 15 ML MOUTHWASH MM SCH ×2 (08:52→19:52)
[2022-02-16] MEDS: Pantoprazole 40 MG VIAL IVP SCH (08:52)
[2022-02-16] MEDS: Insulin DETEMIR 100 UNIT/ML X5UNITS SUBQ SCH ×2 (08:53→19:57)
[2022-02-16 10:47] LABS: Basophils % 0.3 %; Eosinophils # 0.3 K/mcL (0.0-0.6); Eosinophils % 2.8 %; Hematocrit 24.4 % (35.3-44.9); Hemoglobin 7.9 g/dL (11.5-15.4); Immature Granulocytes % 0.9 % (0-4); Lymphocytes # 0.6 K/mcL (0.6-4.6); Lymphocytes % 5.5 %; Mean Corpuscular HGB Conc 32.4 g/dL (31.6-35.5); Mean Corpuscular Hemoglobin 30.3 pg (28.0-33.3); Mean Corpuscular Volume 93.5 fL (83.0-100.0); Mean Platelet Volume 11.2 fL (9.4-12.4); Monocytes # 0.7 K/mcL (0.0-1.3); Monocytes % 6.1 %; Neutrophils # 9.1 K/mcL (1.6-8.9); Platelet Count 275 K/mcL (140-400); Red Blood Count 2.61 M/mcL (3.82-4.97); Red Cell Distribution Width 14.5 % (11.5-14.5); Segmented Neutrophils % 84.4 %; White Blood Count 10.7 K/mcL (4.3-11.1)
[2022-02-16] MEDS: Acetylcysteine 10% 2 ML INHSOL IH SCH ×2 (10:52→19:48)
[2022-02-16 11:15] LABS: Calcium 7.7 mg/dL (8.6-10.3); Magnesium 1.8 mg/dL (1.6-2.6); Potassium 3.8 mEq/L (3.5-5.1)
[2022-02-16] MEDS: *HR* Dextrose 50 % in Water (Syg) 50 ML SYRINGE IVP PRN (19:51)
[2022-02-16] MEDS: Mirtazapine 15 MG TABLET GTUBE SCH (20:19)
[2022-02-16] MEDS: D10% in Water 500 ML IVC SCH (20:25)
[2022-02-16] MEDS: *HR* Metoprolol 5 MG/5 ML VIAL IVP PRN (21:26)
[2022-02-17] MEDS: Insulin LISPRO 300 UNITS/3 ML VIAL SUBQ SCH ×6 (00:30→20:48)
[2022-02-17] MEDS: *HR* Enoxaparin 30 MG/0.3 ML SYRINGE SQ SCH (04:44)
[2022-02-17 05:02] LABS: Basophils % 0.3 %; Eosinophils # 0.3 K/mcL (0.0-0.6); Eosinophils % 2.9 %; Hematocrit 25.8 % (35.3-44.9); Hemoglobin 8.3 g/dL (11.5-15.4); Lymphocytes # 0.8 K/mcL (0.6-4.6); Lymphocytes % 7.7 %; Mean Corpuscular HGB Conc 32.2 g/dL (31.6-35.5); Mean Corpuscular Hemoglobin 29.9 pg (28.0-33.3); Mean Corpuscular Volume 92.8 fL (83.0-100.0); Mean Platelet Volume 11.6 fL (9.4-12.4); Monocytes # 0.8 K/mcL (0.0-1.3); Monocytes % 7.5 %; Neutrophils # 8.1 K/mcL (1.6-8.9); Nucleated Red Blood Cells 0.2 /100 WBC (0); Platelet Count 305 K/mcL (140-400); Red Blood Count 2.78 M/mcL (3.82-4.97); Red Cell Distribution Width 14.3 % (11.5-14.5); Segmented Neutrophils % 80.6 %; White Blood Count 10.1 K/mcL (4.3-11.1)
[2022-02-17 05:50] LABS: Bacteria,Urine Few per hpf (None-Few); Bilirubin,Urine Negative (Negative); Blood,Urine Large (Negative); Clarity,Urine Turbid (Clear); Color,Urine Colorless (Yellow); Glucose,Urine (UA) 30 mg/dL (Normal); Hyaline Casts,Urine Few per lpf (None Seen); Ketones,Urine Negative (Negative); Leukocyte Esterase,Urine Small (Negative); Mucus,Urine Few per lpf (None-Few); Nitrite,Urine Negative (Negative); Protein,Urine 50 mg/dL (Neg-Trace); RBC,Urine 50-100 per hpf (0-3); Specific Gravity,Urine 1.008 (1.010-1.025); Squamous Epithelial Cell,Urine Few per hpf (None-Few); Urobilinogen,Urine Normal (Normal); WBC,Urine 15-30 per hpf (0-3)
[2022-02-17] MEDS: D10% in Water 500 ML IVC SCH (06:41)
[2022-02-17] MEDS: Acetylcysteine 10% 2 ML INHSOL IH SCH (07:06)
[2022-02-17] MEDS: *HR* HYDROmorphone (PF) 1 MG/ML SYRINGE IVP PRN ×3 (08:20→17:09)
[2022-02-17] MEDS: Pantoprazole 40 MG VIAL IVP SCH (08:21)
[2022-02-17] MEDS: Chlorhexidine Rinse 15 ML MOUTHWASH MM SCH (08:25)
[2022-02-17] MEDS: Insulin DETEMIR 100 UNIT/ML X5UNITS SUBQ SCH ×2 (08:29→20:48)
[2022-02-17] MEDS: Saliva Stimulant 44.3ml BOTTLE PO PRN (08:31)
[2022-02-17] MEDS: Aspirin 81 MG TAB.CHEW GTUBE SCH (11:23)
[2022-02-17] MEDS: Cholecalciferol (D-3) 1,000 UNIT (25MCG) TABLET GTUBE SCH (11:24)
[2022-02-17] MEDS: *HR* Metoprolol 5 MG/5 ML VIAL IVP PRN (13:08)
[2022-02-17] MEDS ORDERED: Furosemide 20 MG/2 ML VIAL IVP ONE ×2 (13:30→18:22)
[2022-02-17 14:15] LABS: Calcium 7.8 mg/dL (8.6-10.3)
[2022-02-17] MEDS: Scopolamine Patch 1.5 MG PATCH.TD72 TD SCH (17:08)
[2022-02-17] MEDS: Mirtazapine 15 MG TABLET GTUBE SCH (19:36)
[2022-02-17] MEDS: *HR* Dextrose 50 % in Water (Syg) 50 ML SYRINGE IVP PRN (20:53)
[2022-02-18] MEDS: Insulin LISPRO 300 UNITS/3 ML VIAL SUBQ SCH ×6 (00:40→21:43)
[2022-02-18 03:14] LABS: Basophils % 0.4 %; Eosinophils # 0.3 K/mcL (0.0-0.6); Eosinophils % 3.8 %; Hematocrit 23.4 % (35.3-44.9); Hemoglobin 7.3 g/dL (11.5-15.4); Immature Granulocytes % 0.8 % (0-4); Lymphocytes # 0.6 K/mcL (0.6-4.6); Mean Corpuscular HGB Conc 31.2 g/dL (31.6-35.5); Mean Corpuscular Volume 96.3 fL (83.0-100.0); Mean Platelet Volume 11.1 fL (9.4-12.4); Monocytes # 0.7 K/mcL (0.0-1.3); Neutrophils # 6.8 K/mcL (1.6-8.9); Platelet Count 293 K/mcL (140-400); Red Blood Count 2.43 M/mcL (3.82-4.97); Red Cell Distribution Width 14.5 % (11.5-14.5); White Blood Count 8.5 K/mcL (4.3-11.1)
[2022-02-18 03:48] LABS: Calcium 7.8 mg/dL (8.6-10.3); Potassium 4.2 mEq/L (3.5-5.1)
[2022-02-18 03:59] LABS: Magnesium 1.9 mg/dL (1.6-2.6)
[2022-02-18] MEDS: *HR* Enoxaparin 30 MG/0.3 ML SYRINGE SQ SCH (04:52)
[2022-02-18] MEDS: *HR* HYDROmorphone (PF) 1 MG/ML SYRINGE IVP PRN ×2 (04:53→20:39)
[2022-02-18] MEDS: Saliva Stimulant 44.3ml BOTTLE PO PRN ×2 (05:04→20:41)
[2022-02-18] MEDS: Cholecalciferol (D-3) 1,000 UNIT (25MCG) TABLET GTUBE SCH (09:34)
[2022-02-18] MEDS: Pantoprazole 40 MG VIAL IVP SCH (09:34)
[2022-02-18] MEDS: Aspirin 81 MG TAB.CHEW GTUBE SCH (09:35)
[2022-02-18] MEDS ORDERED: 0.9 % Sodium Chloride 1,000 ML IVC SCH (11:45)
[2022-02-18] MEDS: Insulin DETEMIR 100 UNIT/ML X5UNITS SUBQ SCH ×2 (13:22→21:42)
[2022-02-18] MEDS ORDERED: *HR* FentaNYL (PF) 100 MCG/2 ML VIAL IVP ONE (14:19)
[2022-02-18] MEDS ORDERED: *HR* Midazolam HCl 2 MG/2 ML VIAL IVP ONE (14:19)
[2022-02-18] MEDS ORDERED: ceFAZolin 1,000 MG in 0.9 % Sodium Chloride Mini Bag 100 ML IVPB SCH (14:19)
[2022-02-18] MEDS: Mirtazapine 15 MG TABLET GTUBE SCH (20:38)
[2022-02-19] MEDS: Insulin LISPRO 300 UNITS/3 ML VIAL SUBQ SCH ×6 (00:25→21:45)
[2022-02-19] MEDS: *HR* Enoxaparin 30 MG/0.3 ML SYRINGE SQ SCH (05:02)
[2022-02-19 06:01] LABS: Basophils # 0.1 K/mcL (0.0-0.2); Basophils % 0.6 %; Eosinophils # 0.3 K/mcL (0.0-0.6); Eosinophils % 2.8 %; Hematocrit 22.2 % (35.3-44.9); Hemoglobin 7.1 g/dL (11.5-15.4); Immature Granulocytes % 0.8 % (0-4); Lymphocytes # 0.7 K/mcL (0.6-4.6); Lymphocytes % 7.4 %; Mean Corpuscular Hemoglobin 29.7 pg (28.0-33.3); Mean Corpuscular Volume 92.9 fL (83.0-100.0); Mean Platelet Volume 11.1 fL (9.4-12.4); Monocytes # 0.7 K/mcL (0.0-1.3); Monocytes % 7.5 %; Neutrophils # 7.7 K/mcL (1.6-8.9); Platelet Count 333 K/mcL (140-400); Red Blood Count 2.39 M/mcL (3.82-4.97); Red Cell Distribution Width 14.4 % (11.5-14.5); Segmented Neutrophils % 80.9 %; White Blood Count 9.5 K/mcL (4.3-11.1)
[2022-02-19] MEDS: *HR* Metoprolol 5 MG/5 ML VIAL IVP PRN (06:54)
[2022-02-19 06:56] LABS: Calcium 8.2 mg/dL (8.6-10.3); Potassium 3.9 mEq/L (3.5-5.1)
[2022-02-19] MEDS: D5% in 0.9% NACL 1,000 ML IVC SCH (07:52)
[2022-02-19 09:52] LABS: Magnesium 2.2 mg/dL (1.6-2.6); Phosphorous 4.1 mg/dL (2.7-4.5)
[2022-02-19] MEDS: Cholecalciferol (D-3) 1,000 UNIT (25MCG) TABLET GTUBE SCH (10:06)
[2022-02-19] MEDS: Aspirin 81 MG TAB.CHEW GTUBE SCH (10:06)
[2022-02-19] MEDS: Pantoprazole 40 MG VIAL IVP SCH (10:13)
[2022-02-19] MEDS: *HR* Dextrose 50 % in Water (Syg) 50 ML SYRINGE IVP PRN (10:14)
[2022-02-19] MEDS ORDERED: D10% in Water 500 ML IVC PRN (11:48)
[2022-02-19] MEDS ORDERED: *HR* Labetalol 20 MG/4 ML SYRINGE IVP PRN (13:11)
[2022-02-19] MEDS ORDERED: Clinimix E 5%-15% SOLUTION 2,000 ML with MVI, adult with vitamin K 10 ML IVC SCH (17:00)
[2022-02-19] MEDS: Mirtazapine 15 MG TABLET GTUBE SCH (21:49)
[2022-02-20] MEDS: Insulin LISPRO 300 UNITS/3 ML VIAL SUBQ SCH ×6 (00:43→20:51)
[2022-02-20 05:37] LABS: Basophils % 0.5 %; Eosinophils # 0.3 K/mcL (0.0-0.6); Hematocrit 23.2 % (35.3-44.9); Hemoglobin 7.4 g/dL (11.5-15.4); Immature Granulocytes % 0.9 % (0-4); Lymphocytes # 0.6 K/mcL (0.6-4.6); Lymphocytes % 7.5 %; Mean Corpuscular HGB Conc 31.9 g/dL (31.6-35.5); Mean Corpuscular Hemoglobin 30.3 pg (28.0-33.3); Mean Corpuscular Volume 95.1 fL (83.0-100.0); Mean Platelet Volume 11.1 fL (9.4-12.4); Monocytes # 0.5 K/mcL (0.0-1.3); Monocytes % 6.3 %; Neutrophils # 6.4 K/mcL (1.6-8.9); Platelet Count 331 K/mcL (140-400); Red Blood Count 2.44 M/mcL (3.82-4.97); Red Cell Distribution Width 14.8 % (11.5-14.5); Segmented Neutrophils % 80.8 %
[2022-02-20 05:57] LABS: Albumin 2.5 g/dL (3.5-5.7); Albumin/Globulin Ratio 0.9 (1.1-2.2); Bilirubin,Total 0.4 mg/dL (0.3-1.0); Calcium 8.3 mg/dL (8.6-10.3); Globulin 2.7 g/dL (2.4-3.5); Magnesium 2.2 mg/dL (1.6-2.6); Phosphorous 3.7 mg/dL (2.7-4.5); Potassium 4.1 mEq/L (3.5-5.1); Total Protein 5.2 g/dL (6.4-8.9)
[2022-02-20] MEDS: *HR* Enoxaparin 30 MG/0.3 ML SYRINGE SQ SCH (06:20)
[2022-02-20] MEDS: D5% in 0.9% NACL 1,000 ML IVC SCH (08:17)
[2022-02-20 09:10] LABS: ABG Base Excess -4 mEq/L (-2 to 3); ABG HCO3 19 mEq/L (21-27); ABG Oxygen Saturation 94 % (95-98); ABG PCO2 27 mmHg (35-45); ABG PH 7.46 pH Units (7.32-7.45); ABG PO2 64 mmHg (85-104); ABG TCO2 20 mEq/L (20-26)
[2022-02-20] MEDS: Pantoprazole 40 MG VIAL IVP SCH (09:23)
[2022-02-20] MEDS ORDERED: Sodium Bicarbonate 150 MEQ in Water for inj. (sterile) 1,000 ML IVC SCH (09:30)
[2022-02-20] MEDS: Haloperidol Lactate 5 MG/ML VIAL IVP PRN (10:12)
[2022-02-20] MEDS: *HR* HYDROmorphone (PF) 1 MG/ML SYRINGE IVP PRN (10:24)
[2022-02-20] MEDS: Aspirin 81 MG TAB.CHEW GTUBE SCH (10:26)
[2022-02-20] MEDS: Cholecalciferol (D-3) 1,000 UNIT (25MCG) TABLET GTUBE SCH (10:27)
[2022-02-20] MEDS ORDERED: Furosemide 40 MG/4 ML VIAL IVP ONE (14:26)
[2022-02-20] MEDS: *HR* Metoprolol 5 MG/5 ML VIAL IVP PRN (14:41)
[2022-02-20] MEDS: Scopolamine Patch 1.5 MG PATCH.TD72 TD SCH (14:48)
[2022-02-20] MEDS ORDERED: Clinimix E 5%-15% SOLUTION 2,000 ML IVC SCH (17:00)
[2022-02-20] MEDS: Mirtazapine 15 MG TABLET GTUBE SCH (20:52)
[2022-02-21] MEDS: Insulin LISPRO 300 UNITS/3 ML VIAL SUBQ SCH ×6 (01:15→20:33)
[2022-02-21 04:10] LABS: Hematocrit 23.1 % (35.3-44.9); Hemoglobin 7.1 g/dL (11.5-15.4); Mean Corpuscular HGB Conc 30.7 g/dL (31.6-35.5); Mean Corpuscular Hemoglobin 30.1 pg (28.0-33.3); Mean Corpuscular Volume 97.9 fL (83.0-100.0); Mean Platelet Volume 10.5 fL (9.4-12.4); Platelet Count 295 K/mcL (140-400); Red Blood Count 2.36 M/mcL (3.82-4.97); Red Cell Distribution Width 15.5 % (11.5-14.5); White Blood Count 9.6 K/mcL (4.3-11.1)
[2022-02-21 04:29] LABS: Albumin 2.5 g/dL (3.5-5.7); Albumin/Globulin Ratio 0.9 (1.1-2.2); Bilirubin,Total 0.4 mg/dL (0.3-1.0); Calcium 8.4 mg/dL (8.6-10.3); Globulin 2.7 g/dL (2.4-3.5); Magnesium 2.2 mg/dL (1.6-2.6); Phosphorous 3.7 mg/dL (2.7-4.5); Potassium 4.2 mEq/L (3.5-5.1); Total Protein 5.2 g/dL (6.4-8.9)
[2022-02-21] MEDS: *HR* Enoxaparin 30 MG/0.3 ML SYRINGE SQ SCH (05:45)
[2022-02-21] MEDS: Aspirin 81 MG TAB.CHEW GTUBE SCH (08:07)
[2022-02-21] MEDS: Cholecalciferol (D-3) 1,000 UNIT (25MCG) TABLET GTUBE SCH (08:07)
[2022-02-21] MEDS: *HR* Metoprolol 5 MG/5 ML VIAL IVP PRN (08:25)
[2022-02-21] MEDS: Pantoprazole 40 MG VIAL IVP SCH (08:26)
[2022-02-21] MEDS ORDERED: Insulin Human Regular 10 UNIT in 0.9 % Sodium Chloride 10 ML IV ONE (09:35)
[2022-02-21] MEDS: D5% in 0.9% NACL 1,000 ML IVC SCH (11:16)
[2022-02-21] MEDS: *HR* HYDROmorphone (PF) 1 MG/ML SYRINGE IVP PRN ×2 (15:20→22:35)
[2022-02-21] MEDS ORDERED: Clinimix E 5%-15% SOLUTION 2,000 ML IVC SCH (17:00)
[2022-02-21] MEDS: Mirtazapine 15 MG TABLET GTUBE SCH (20:34)
[2022-02-22] MEDS: Insulin LISPRO 300 UNITS/3 ML VIAL SUBQ SCH ×7 (00:14→23:39)
[2022-02-22] MEDS: *HR* Enoxaparin 30 MG/0.3 ML SYRINGE SQ SCH (05:43)
[2022-02-22 06:06] LABS: Hematocrit 24.3 % (35.3-44.9); Hemoglobin 7.2 g/dL (11.5-15.4); Mean Corpuscular HGB Conc 29.6 g/dL (31.6-35.5); Mean Corpuscular Hemoglobin 30.1 pg (28.0-33.3); Mean Corpuscular Volume 101.7 fL (83.0-100.0); Mean Platelet Volume 10.6 fL (9.4-12.4); Platelet Count 291 K/mcL (140-400); Red Blood Count 2.39 M/mcL (3.82-4.97); Red Cell Distribution Width 15.6 % (11.5-14.5); White Blood Count 9.8 K/mcL (4.3-11.1)
[2022-02-22 07:08] LABS: Calcium 8.5 mg/dL (8.6-10.3); Magnesium 2.3 mg/dL (1.6-2.6); Phosphorous 4.3 mg/dL (2.7-4.5); Potassium 4.5 mEq/L (3.5-5.1)
[2022-02-22] MEDS: Aspirin 81 MG TAB.CHEW GTUBE SCH (07:30)
[2022-02-22] MEDS: Cholecalciferol (D-3) 1,000 UNIT (25MCG) TABLET GTUBE SCH (07:31)
[2022-02-22] MEDS: Pantoprazole 40 MG VIAL IVP SCH (08:47)
[2022-02-22] MEDS: Haloperidol Lactate 5 MG/ML VIAL IVP PRN ×2 (10:17→15:44)
[2022-02-22] MEDS: *HR* HYDROmorphone (PF) 1 MG/ML SYRINGE IVP PRN (10:19)
[2022-02-22] MEDS ORDERED: Furosemide 40 MG/4 ML VIAL IVP ONE (12:07)
[2022-02-22] MEDS: *HR* LORazepam 2 MG/ML VIAL IVP PRN (16:31)
[2022-02-22] MEDS ORDERED: Clinimix E 5%-15% SOLUTION 2,000 ML with MVI, adult with vitamin K 10 ML, ZN/CU/MN/SE... IVC SCH (17:00)
[2022-02-22] MEDS: *HR* Metoprolol 5 MG/5 ML VIAL IVP PRN (18:07)
[2022-02-22] MEDS: Mirtazapine 15 MG TABLET GTUBE SCH (19:28)
[2022-02-23 02:43] LABS: Hemoglobin 7.2 g/dL (11.5-15.4); Mean Corpuscular Hemoglobin 30.3 pg (28.0-33.3); Mean Corpuscular Volume 100.8 fL (83.0-100.0); Mean Platelet Volume 10.7 fL (9.4-12.4); Platelet Count 279 K/mcL (140-400); Red Blood Count 2.38 M/mcL (3.82-4.97); Red Cell Distribution Width 15.9 % (11.5-14.5); White Blood Count 6.5 K/mcL (4.3-11.1)
[2022-02-23] MEDS: Insulin LISPRO 300 UNITS/3 ML VIAL SUBQ SCH ×6 (04:12→19:51)
[2022-02-23] MEDS: *HR* Enoxaparin 30 MG/0.3 ML SYRINGE SQ SCH (04:28)
[2022-02-23] MEDS: Cholecalciferol (D-3) 1,000 UNIT (25MCG) TABLET GTUBE SCH (07:50)
[2022-02-23] MEDS: Aspirin 81 MG TAB.CHEW GTUBE SCH (07:50)
[2022-02-23] MEDS: *HR* Metoprolol 5 MG/5 ML VIAL IVP PRN (08:12)
[2022-02-23 08:31] LABS: Magnesium 2.3 mg/dL (1.6-2.6); Phosphorous 4.3 mg/dL (2.7-4.5)
[2022-02-23] MEDS ORDERED: *HR* LORazepam 2 MG/ML VIAL IVP ONE (08:46)
[2022-02-23] MEDS: *HR* HYDROmorphone (PF) 1 MG/ML SYRINGE IVP PRN ×3 (09:13→21:09)
[2022-02-23 10:03] LABS: Albumin 2.5 g/dL (3.5-5.7); Albumin/Globulin Ratio 0.9 (1.1-2.2); Bilirubin,Total 0.3 mg/dL (0.3-1.0); Calcium 8.5 mg/dL (8.6-10.3); Globulin 2.9 g/dL (2.4-3.5); Potassium 4.7 mEq/L (3.5-5.1); Total Protein 5.4 g/dL (6.4-8.9)
[2022-02-23] MEDS: Pantoprazole 40 MG VIAL IVP SCH (11:24)
[2022-02-23] MEDS ORDERED: Insulin Human Regular 10 UNIT in 0.9 % Sodium Chloride 10 ML IV ONE (12:15)
[2022-02-23] MEDS: *HR* LORazepam 2 MG/ML VIAL IVP PRN ×2 (12:46→19:50)
[2022-02-23] MEDS: Scopolamine Patch 1.5 MG PATCH.TD72 TD SCH (12:51)
[2022-02-23] MEDS ORDERED: Clinimix E 5%-15% SOLUTION 2,000 ML with ZN/CU/MN/SE 1 ML IVC SCH (17:00)
[2022-02-23] MEDS: Mirtazapine 15 MG TABLET GTUBE SCH (19:43)
[2022-02-24] MEDS: Insulin LISPRO 300 UNITS/3 ML VIAL SUBQ SCH ×4 (00:06→13:27)
[2022-02-24] MEDS: *HR* HYDROmorphone (PF) 1 MG/ML SYRINGE IVP PRN ×3 (01:17→13:29)
[2022-02-24] MEDS: *HR* LORazepam 2 MG/ML VIAL IVP PRN ×2 (02:30→08:45)
[2022-02-24 04:43] LABS: Hematocrit 23.9 % (35.3-44.9); Hemoglobin 7.1 g/dL (11.5-15.4); Mean Corpuscular HGB Conc 29.7 g/dL (31.6-35.5); Mean Corpuscular Hemoglobin 30.3 pg (28.0-33.3); Mean Corpuscular Volume 102.1 fL (83.0-100.0); Mean Platelet Volume 11.3 fL (9.4-12.4); Platelet Count 262 K/mcL (140-400); Red Blood Count 2.34 M/mcL (3.82-4.97); Red Cell Distribution Width 16.2 % (11.5-14.5)
[2022-02-24 04:48] LABS: Magnesium 2.5 mg/dL (1.6-2.6); Phosphorous 5.4 mg/dL (2.7-4.5)
[2022-02-24 04:50] LABS: Albumin 2.5 g/dL (3.5-5.7); Albumin/Globulin Ratio 0.9 (1.1-2.2); Bilirubin,Total 0.4 mg/dL (0.3-1.0); Calcium 8.3 mg/dL (8.6-10.3); Globulin 2.8 g/dL (2.4-3.5); Potassium 5.6 mEq/L (3.5-5.1); Total Protein 5.3 g/dL (6.4-8.9)
[2022-02-24] MEDS: *HR* Enoxaparin 30 MG/0.3 ML SYRINGE SQ SCH (05:19)
[2022-02-24] MEDS: Pantoprazole 40 MG VIAL IVP SCH (07:37)
[2022-02-24] MEDS: Aspirin 81 MG TAB.CHEW GTUBE SCH (07:38)
[2022-02-24] MEDS: Cholecalciferol (D-3) 1,000 UNIT (25MCG) TABLET GTUBE SCH (07:38)
[2022-02-24] MEDS ORDERED: D10% in Water 500 ML IVC PRN (09:18)
[2022-02-24] MEDS ORDERED: D10% in Water 500 ML ONE (09:19)
[2022-02-24] MEDS ORDERED: Clinimix 5%-20% SOLUTION 2,000 ML with MVI, adult with vitamin K 10 ML, ZN/CU/MN/SE 1... IV SCH (17:00)
[2022-02-24] MEDS ORDERED: *HR* LORazepam 2 MG/ML VIAL IVP PRN (17:10)
[2022-02-24] MEDS: Morphine Sulfate 2 MG/ML SYRINGE IVP PRN (21:39)
[2022-02-24 21:49] VITALS: BP 127/54; PULSE 114; TEMP 98.4; O2SAT 100
[2022-02-25] MEDS: Morphine Sulfate 2 MG/ML SYRINGE IVP PRN (04:01)
== END 2022-02-25 07:50 | disposition expired | DRG 480 ==
LOC: EMEROOARM 16:06 → 4WAOSI 20:08 → SUATTDRO 20:08 → 4WAOSI 20:55 → 2NNU 02-02 11:08 → ICNU 02-04 18:22 → 4WAOSI 02-05 22:24 → 2NENU 02-06 11:42 → 2ANU 02-24 18:35
PROVIDERS: ADMIT Internal Medicine; ATTEND Family Medicine